=== PATIENT | female | born 1955 | race Caucasian/White ===

== ENCOUNTER 2017-10-21 17:46 | Emergency (ER) | payer OTHER ==
[~2017-10-21] VITALS: Wt 80.0 kg
[~2017-10-21 17:46] MED LIST: AMLO-147 PO; BACTDS PO; CEPH-443 PO; CLON-379 PO; OMEP20CA16 PO; SIMV10TA PO
[2017-10-21] MEDS ORDERED: KETOROLAC 30 MG INJ IM STA (18:20)
[2017-10-21] MEDS ORDERED: OXYCODONE/ACETAMINOPHEN (5/325) TAB PO ONE (18:30)
[2017-10-21] MEDS ORDERED: OXYC-279 PO (18:31)
[2017-10-21] MEDS ORDERED: IBUP-1542 PO (18:31)
[2017-10-21] MEDS ORDERED: SIMV20TA PO (18:37)
[2017-10-21] MEDS ORDERED: GLUCOSAMINE PO (18:40)
--- NOTE | 2017-10-21 19:08 | ERD ---
ER Documentation Chief Complaint Chief Complaint right foot pain and swelling from a fall but no deformity . HPI 62-year-old woman complains of redness and swelling to the dorsal aspect of the right foot 2 days. Patient states she had ankle inversion injury on the right a couple days ago. She denies direct trauma to the foot, no fevers or chills, no chest pain or shortness of breath. Patient normally uses a walker to help ambulate. Patient denies calf or leg swelling. ROS All systems reviewed and are negative except as per history of present illness. Medications Home Meds Active Scripts Cephalexin* (Keflex*) 500 Mg Capsule, 500 MG PO TID for 7 Days, CAP Prov:LINDA SMITH MD 10/21/17 Ibuprofen* (Ibuprofen*) 600 Mg Tablet, 600 MG PO Q8 for PAIN AND/OR INFLAMMATION , #30 TAB Prov:LINDA SMITH MD 10/21/17 Oxycodone HCl/Acetaminophen (Percocet 5-325 mg Tablet) 1 Each Tablet, 1 EACH PO TID for PAIN LEVEL 6-10, #12 TAB Prov:LINDA SMITH MD 10/21/17 Reported Medications [Glucosamine] No Conflict Check, 1 CAP PO NEEDED 10/21/17 Simvastatin* (Zocor*) 20 Mg Tablet, 20 MG PO QHS, #30 TAB 10/21/17 Omeprazole* (Omeprazole*) 20 Mg Capsule.dr, 20 MG PO DAILY, #30 CAP 04/14/16 Clonidine Hcl* (Clonidine Hcl*) 0.1 Mg Tab, 0.1 MG PO TID, TAB 04/14/16 Discontinued Reported Medications Simvastatin* (Zocor*) 10 Mg Tablet, 10 MG PO QHS, #30 TAB 12/27/15 Amlodipine Besylate* (Amlodipine Besylate*) 10 Mg Tablet, 10 MG PO DAILY, #30 TAB 12/27/15 Discontinued Scripts Cephalexin* (Keflex*) 500 Mg Capsule, 500 MG PO QID for 7 Days, CAP Prov:DOUGLAS BELTRAN 04/15/16 Sulfamethoxazole-Trimethoprim* (Bactrim* DS) 800-160 Mg Tab, 1 TAB PO BID for 5 Days, TAB Prov:DOUGLAS BELTRAN 04/15/16 Allergies Allergies: Coded Allergies: No Known Allergy (Unverified , 10/21/17) PMhx/Soc Obesity, dyslipidemia, hypertension, diabetes mellitus, History of Surgery: Yes (RT SHOULDER REPAIR, ) Anesthesia Reaction: No Hx Neurological Disorder: No Hx Respiratory Disorders: No Hx Cardiac Disorders: Yes (HTN) Hx Psychiatric Problems: No Hx Miscellaneous Medical Probl: No (Cholesterol, pre-DM) Hx Alcohol Use: No Hx Substance Use: No Hx Tobacco Use: No Smoking Status: Never smoker FmHx Family History: No diabetes Physical Exam Vitals Vital Signs Date Time Temp Pulse Resp B/P Pulse Ox O2 Delivery O2 Flow Rate FiO2 10/21/17 17:58 98.8 101 20 187/102 97 Physical Exam GENERAL: Well-developed, well-nourished, well-hydrated, in no apparent distress , looks nontoxic in appearance HEENT: Moist mucous membranes, pink conjunctiva, no cervical spine tenderness or step-off deformities, no goiter, no jaundice or icterus, extraocular movements intact without pain. No submandibular induration, and no pharyngeal erythema NEURO: Alert and oriented 3, cranial nerves II through XII intact bilaterally, pupils equal round reactive to light, no focal deficits or facial asymmetry, sensation intact distally Strength 5/5 in upper and lower extremities bilaterally CARDIAC: Regular rate and rhythm, no murmurs rubs or gallops LUNGS: Clear bilaterally no wheezing crackles or stridor ABDOMEN: Soft nontender, no guarding, no rigidity, no rebound, no psoas sign no obturator sign. Normoactive bowel sounds SKIN: Warm and dry to touch, exquisite tenderness superficially over the dorsal aspect of the right foot, mild skin erythema to the dorsal aspect of the right foot, no induration, no edema. EXTREMITIES: No clubbing cyanosis or edema, calves are bilaterally symmetrical, no Homans sign, no popliteal cord sign. Distal pulses equal and bilateral PSYCH: Normal affect without agitation or irritability Result Diagram: 10/21/17 19010/21/17 190 Results 24 hrs Laboratory Tests Test 10/21/17 19:02 10/21/17 19:03 White Blood Count 15.110^3/ul Red Blood Count 3.9910^6/ul Hemoglobin 11.4g/dl Hematocrit 36.4% Mean Corpuscular Volume 91.2fl Mean Corpuscular Hemoglobin 28.6pg Mean Corpuscular Hemoglobin Concent 31.3g/dl Red Cell Distribution Width 16.1% Platelet Count 55005^3/UL Mean Platelet Volume 10.3fl Neutrophils % 65.6% Lymphocytes % 17.0% Monocytes % 11.3% Eosinophils % 0.9% Basophils % 0.5% Nucleated Red Blood Cells % 0.6/100WBC Neutrophils # 9.910^3/ul Lymphocytes # 2.610^3/ul Monocytes # 1.710^3/ul Eosinophils # 0.110^3/ul Basophils # 0.110^3/ul Nucleated Red Blood Cells # 0.110^3/ul Sodium Level 136mmol/L Potassium Level 3.9mmol/L Chloride Level 102mmol/L Carbon Dioxide Level 20mmol/L Anion Gap 18 Blood Urea Nitrogen 19mg/dl Creatinine 1.33mg/dl Glucose Level 154mg/dl Calcium Level 9.5mg/dl Total Bilirubin 0.5mg/dl Direct Bilirubin 0.00mg/dl Indirect Bilirubin 0.5mg/dl Aspartate Amino Transf (AST/SGOT) 26IU/L Alanine Aminotransferase (ALT/SGPT) 50IU/L Alkaline Phosphatase 163IU/L C-Reactive Protein 19.7mg/dl Total Protein 6.9g/dl Albumin 3.5g/dl Globulin 3.40g/dl Albumin/Globulin Ratio 1.02 Current Medications Medications (Trade) Dose Ordered Sig/Lisbeth Route PRN Reason Start Time Stop Time Status Last Admin Dose Admin Ketorolac Tromethamine (Toradol) 30 mg ONCE STAT IM 10/21/17 18:20 10/21/17 18:24 DC 10/21/17 18:20 Oxycodone/ Acetaminophen (Percocet (5/ 325)) 1 tab ONCE ONCE PO 10/21/17 18:30 10/21/17 18:31 DC 10/21/17 19:24 Cephalexin (Keflex) 500 mg ONCE ONCE PO 10/21/17 20:30 10/21/17 20:31 UNV Procedures/MDM I administered Toradol 30 mg IM 1 and Percocet 1 tablet p.o. CBC revealed a leukocytosis of 15, electrolytes were unremarkable, liver function tests normal, CRP elevated X-ray right foot 3V Interpreted by me: Bones: No fracture Joints: Arthritic changes noted to the first second MTP Foreign body: None Patient's vital signs are normal and pain has improved, cellulitis is highly unlikely although I will give her a few days of antibiotics. She will also be managed with oral analgesics and I recommended she follow-up with her PMD. Differential diagnoses considered, included but not limited to acute coronary syndrome, pulmonary embolism, aortic dissection, abdominal aortic aneurysm, sepsis, stroke, meningitis, encephalitis, pneumonia, appendicitis, cholecystitis , bowel obstruction, pyelonephritis, nephrolithiasis, cystitis, as well as metabolic, hematologic, and electrolyte abnormalities. As well as abscess, cellulitis, fractures, and dislocations. Patient feels much better at this time, and vital signs are normal, symptoms have improved. I did give strict instructions to return to the ED if symptoms continue or worsen, patient will otherwise follow-up with primary care physician. Patient understood instructions and agreed to plan. Disclaimer: Inadvertent spelling and grammatical errors are likely due to EHR/ dictation software use and do not reflect on the overall quality of patient care. Also, please note that the electronic time recorded on this note does not necessarily reflect the actual time of the patient encounter. Departure Diagnosis: Primary Impression: Right ankle sprain Encounter type: initial encounter Involved ligament of ankle: unspecified ligament Qualified Code: S93.401A - Sprain of right ankle, unspecified ligament, initial encounter Additional Impressions: Gout of right foot Gout etiology: unspecified cause Chronicity: acute Qualified Code: M10.9 - Acute gout of right foot, unspecified cause Osteoarthritis of foot Osteoarthritis type: primary Laterality: right Qualified Code: M19.071 - Primary osteoarthritis of right foot Condition: Good Patient Instructions: Gouty Arthritis Referrals: SHARON LANGLEY DAVID MD Oct 21, 2017 19:08
[2017-10-21 19:42] LABS: WHITE BLOOD COUNT 15.1 10^3/ul (4.8-10.8)
[2017-10-21 19:43] LABS: ABNORMAL IP MESSAGE 1; BASOPHIL # 0.1 10^3/ul (0.0-0.1); BASOPHILS % 0.5 % (0.0-2.0); EOSINOPHILS # 0.1 10^3/ul (0.0-0.5); EOSINOPHILS % 0.9 % (0.0-7.0); HEMATOCRIT 36.4 % (37.0-47.0); HEMOGLOBIN 11.4 g/dl (12.0-16.0); LYMPHOCYTES # 2.6 10^3/ul (0.8-2.9); MEAN CORPUSCULAR HEMOGLOBIN 28.6 pg (29.0-33.0); MEAN CORPUSCULAR HGB CONC 31.3 g/dl (32.0-37.0); MEAN CORPUSCULAR VOLUME 91.2 fl (82.0-101.0); MEAN PLATELET VOLUME 10.3 fl (7.4-10.4); MONOCYTE # 1.7 10^3/ul (0.3-0.9); MONOCYTES % 11.3 % (0.0-11.0); NEUTROPHIL # 9.9 10^3/ul (1.6-7.5); NEUTROPHILS % 65.6 % (39.0-77.0); NUCLEATED RED BLOOD CELLS # 0.1 10^3/ul (0.0-0.0); NUCLEATED RED BLOOD CELLS% 0.6 /100WBC (0.0-0.0); PLATELET COUNT 363 10^3/UL (140-415); RED BLOOD COUNT 3.99 10^6/ul (4.20-5.40); RED CELL DISTRIBUTION WIDTH 16.1 % (11.5-14.5)
[2017-10-21 19:52] LABS: ALBUMIN 3.5 g/dl (3.3-4.9); ALBUMIN/GLOBULIN RATIO 1.02; BILIRUBIN,INDIRECT 0.5 mg/dl (0-1.1); BILIRUBIN,TOTAL 0.5 mg/dl (0.2-1.3); CALCIUM 9.5 mg/dl (8.4-10.2); CREATININE 1.33 mg/dl (0.44-1.00); POTASSIUM 3.9 mmol/L (3.5-5.1); TOTAL PROTEIN 6.9 g/dl (6.1-8.1)
[2017-10-21 19:52] LABS: POSITIVE DIFF @See below
[2017-10-21 20:11] LABS: C-REACTIVE PROTEIN 19.7 mg/dl (0.0-0.9)
--- NOTE | 2017-10-21 20:19 | RADRPT ---
PROCEDURE: XR Foot. CLINICAL INDICATION: 62 years of age, female. Gout. TECHNIQUE: Three views of the right foot. COMPARISON: None available. FINDINGS: There is soft tissue swelling over the forefoot. Negative for hyperdense soft tissue masses to indic ate tophi. Negative for punched out erosions. Osteoarthritis of the first MTP joint with joint space narrowing and osteophytes. There is arthritis of the sesamoid bones of the great toe. Remaining joint spaces are preserved. There is mild arthrit is of the tibiotalar joint with anterior osteophytes. Bone spur at the base of the calcaneus. Multipartite os peroneum at the lateral base of cuboid. Mult ipartite accessory ossicle for the navicular. Additional comment: None. IMPRESSION: 1. Negative for radiographic evidence of chronic tophaceous gout. Acute gout may not be seen on x-ra y. 2. Osteoarthritis of the first MTP joint and adjacent sesamoids. RPTAT: HCTS Physician Marzena Date Time Electronically viewed and signed by Physician Marzena on 10/21/2017 20:18 /
[2017-10-21] MEDS ORDERED: CEPH-443 PO (20:21)
[2017-10-21] MEDS ORDERED: CEPHALEXIN 500 MG CAP PO ONE (20:30)
[2017-10-21 20:53] VITALS: BP 118/56; PULSE 95; RESP 16; TEMP 98.1
== END 2017-10-21 20:59 | disposition home or self-care (01) ==
LOC: E/R 17:46
DX: S93.401A Sprain of unspecified ligament of right ankle, initial encounter (principal); M10.9 Gout, unspecified; M19.071 Primary osteoarthritis, right ankle and foot; E11.9 Type 2 diabetes mellitus without complications; I10 Essential (primary) hypertension; E03.9 Hypothyroidism, unspecified; X50.9XXA Other and unspecified overexertion or strenuous movements or postures, initial encounter; Y92.9 Unspecified place or not applicable
CPT/HCPCS: 36415; 73630; 80053; 85025; 85651; 86140; 96372; J1885; Z7502; Z7610

== ENCOUNTER 2017-10-23 07:04 | Inpatient (IN) | payer OTHER ==
[~2017-10-23] VITALS: Ht 152.4 cm; Wt 95.6 kg
[2017-10-23] VITALS (17 sets, daily range): BP systolic 127–181; BP diastolic 55–83; PULSE 86–98; RESP 16–23
[~2017-10-23 07:04] MED LIST changes: -AMLO-147 PO; -BACTDS PO; +GLUCOSAMINE PO; +IBUP-1542 PO; +OXYC-279 PO; -SIMV10TA PO; +SIMV20TA PO; +SUCCINYLCHOLINE CHLORIDE 100 MG/5 ML SYG IV ONE
[2017-10-23] MEDS ORDERED: NACL 0.9% 3 ML SYG IV SCH ×2 (10:00→11:00)
--- NOTE | 2017-10-23 10:58 | HP ---
Date/Time of Note Date/Time of Note DATE: 10/23/17 TIME: 10:58 Assessment/Plan VTE Prophylaxis VTE Prophylaxis Intervention: SCD's Lines/Catheters IV [facility]from [facility] Saline Lock Assessment/Plan Chief Complaint/Hosp Course 1. Symptomatic cholelithiasis. Possible underlying cholecystitis. The patient will be kept n.p.o. The patient will be provided with adequate pain control. General surgery consult will be obtained. Will start empiric antibiotics. 2. Hematochezia. The patient has history of gastric ulcers. The patient will be maintained on proton pump inhibitors. The patient's H&H remains stable. Gastroenterology consult will be obtained. 3. Acute kidney injury. Probably has some underlying chronic kidney disease as evidenced by atrophy of the right kidney. Avoid nephrotoxic medications. Continue IV hydration. Obtain nephrology consult. 4. Essential hypertension. The patient's antihypertensives will be resumed. 5. Dyslipidemia. The patient's statins will be resumed. A fasting lipid panel will be obtained. 6. Prediabetes. Hemoglobin A1c will be obtained. 7. Obesity. BMI of 41.2 kg/m. Weight reduction will be advised. Plan: The patient will be admitted to inpatient medical surgical floor. The patient will be n.p.o.. The patient will be started on DVT prophylaxis. The patient will remain a full code. Activities will be as tolerated. The rest of the patient's management will be based on the clinical course, inputs from consultants, and the results of diagnostic studies. Based on the patient's clinical presentation, she most probably requires at least 1 midnight's stay for further management and evaluation of her clinical presentation. The patient was seen in collaboration with Dr. Lomax. Problems: Assessment/Plan This is the case of a 62-year-old female with past medical history of essential hypertension, prediabetes, and dyslipidemia who was initially evaluated at [facility] for abdominal pain as well as hematochezia who was found to have evidence of symptomatic cholelithiasis and acute kidney injury who is being admitted to [facility] for further evaluation and management for any underlying cholecystitis and further evaluation of her underlying KENNY. HPI/ROS Admit Date/Time Admit Date/Time Oct 23, 2017 at 08:36 Hx of Present Illness Reason for admission: Transferred from [facility] for further management of symptomatic cholelithiasis and bright right blood per rectum. Conusltants 1. Melo Curry MD, General Surgery. 2. Rosa Hung MD, Gastroenterology. 3. Edward Bowman DO, Nephrology. This is a 62-year-old female with past medical history of essential hypertension, dyslipidemia, and osteoarthritis who went to an outside facility with a chief complaint of abdominal pain, nausea, and bright red blood per rectum that has been going on for a 3 day period. The patient was seen at [facility] emergency room on October 21 for a right ankle sprain. At that time, the patient had abdominal pain and bleeding per rectum. However, the patient's H&H remained stable and the patient was discharged home for outpatient follow-up. The patient's a BUN and creatinine on 10/21/2017 was 19 and 1.33 respectively. The patient's symptoms were not getting better, hence she went to [facility]. At [facility], the patient underwent a gallbladder ultrasound that showed significantly distended gallbladder with suggestion of stones or sludge layering in its dependent portion within gallbladder wall thickening or pericholecystic fluid. The patient underwent a CT of the abdomen and pelvis that showed significantly distended gallbladder with stones or sludge layering in the dependent portion. The patient had leukocytosis with WBC of 15.9. The patient was noticed to be in acute kidney injury with a BUN and creatinine of 30 and 3.25 respectively. The patient was treated with IV Zosyn at [facility] and the patient was transferred to [facility] for further management because of insurance reasons. ROS Constitutional: poor po Eyes: no complaints ENT: no complaints Respiratory: no complaints Cardiovascular: no complaints Gastrointestinal: blood, nausea, pain Genitourinary: no complaints Musculoskeletal: bone/joint pain (Right ankle) Skin: no complaints Neurologic: no complaints Endocrine: no complaints Lymphatic: no complaints Psychological: no complaints Immunologic: no complaints PMH/Family/Social Past Medical History Medical History: high cholesterol, hypertension, other (Gastric ulcers, prediabetes) Past Surgical History Past Surgical Hx: other (, righ arm surgery) Social History The patient lives at home. Alcohol Use: none Smoking Status: Never smoker Drug Use: none Exam/Review of Systems Vital Signs Vitals Vital Signs Date Time Temp Pulse Resp B/P Pulse Ox O2 Delivery O2 Flow Rate FiO2 10/23/17 08:20 98.6 91 16 127/57 95 Exam Exam General: Morbidly obese 61 year-old female lying in bed in no apparent distress. HEENT: Normocephalic, atraumatic. Eyes: Anicteric sclerae, conjunctivae clear. ENT: Nasal septum midline, oral mucosa moist. Neck: Short and obese. Respiratory: Bilaterally clear breath sounds. No use of accessory muscles of respiration. No adventitious breath sounds. Cardiovascular: S1, S2 heard. Regular rate and rhythm. Abdomen: Soft and nondistended. Bowel sounds positive in all 4 quadrants. RUQ tenderness. Genitourinary: Deferred. Extremities: No cyanosis, no clubbing. Peripheral pulses palpable. Right foot tenderness on palpation. Neurologic: Cranial nerves II through XII grossly intact. The patient is awake, alert, and oriented. Skin: Normal skin turgor. No skin rashes. Medications Medications Current Medications Sodium Chloride (NS) 1,000 ml @ 100 mls/hr Q10H IV ; Start 10/23/17 at 11:00; Status UNV Ondansetron HCl (Zofran Inj) 4 mg Q6H PRN IV NAUSEA AND/OR VOMITING; Start at 11:00; Status UNV Acetaminophen (Tylenol Tab) 650 mg Q6H PRN PO PAIN LEVEL 1-3 OR FEVER; Start 10/23/17 at 11:00; Status UNV Acetaminophen/ Hydrocodone Bitart ([place] (5/325)) 1 tab Q6H PRN PO MODERATE PAIN LEVEL 4-6; Start 10/23/17 at 11:00; Status UNV Pantoprazole (Protonix Iv) 40 mg DAILY@06 IV ; Start 10/24/17 at 06:00; Status UNV Procedures Procedures Gallbladder Ultrasound (from [facility]) Hepatic steatosis with mild hepatomegaly. Cholelithiasis with distended gallbladder, may represent hydropic gallbladder. Normal CBD. CT Abdomen and Pelvis ([facility]) Significantly distended gallbladder with suggestion of stones or sludge layering in its dependent portion. No gallbladder wall thickening or pericholecystic fluid. Severe atrophy of the right kidney. Left kidney is unremarkable without hydronephrosis or renal calculi. CBC from [facility]: WBC 15.9, hemoglobin 10.5, hematocrit 30.0, platelet count 336. CMP from [facility]: Sodium 134, potassium 4.5, chloride 100, carbon dioxide 20, anion gap 14, BUN 30, creatinine 3.25, EGFR 14, glucose 163, calcium 8.7, alk phos 170, AST 23, ALT 28, total bili 1.1, direct bili 0.4, lipase 11. EPRICO TREJO NP Oct 23, 2017 10:58
[2017-10-23] MEDS ORDERED: HYDROCODONE/APAP (5/325) TAB PO PRN (11:00)
[2017-10-23] MEDS ORDERED: ACETAMINOPHEN 325 MG TAB PO PRN (11:00)
[2017-10-23] MEDS ORDERED: ONDANSETRON 4 MG INJ IV PRN ×4 (11:00→16:30)
[2017-10-23] MEDS: SOD CHLORIDE 0.9% 1,000 ML IV SCH ×2 (12:00→20:46)
--- NOTE | 2017-10-23 12:02 | CONS ---
Date/Time of Note Date/Time of Note DATE: 10/23/17 TIME: 12:00 Assessment/Plan Assessment/Plan Additional Assessment/Plan Acute cholecystitis Laparoscopic cholecystectomy is recommended. I have discussed the procedure, outcomes, indications, alternatives and risks in detail with the patient and family will have a reasonable understanding of the nature of her illness and agreed to the proposed plan of therapy as outlined. Consultation Date/Type/Reason Admit Date/Time Oct 23, 2017 at 08:36 Date of Consultation: Oct 23, 2017 Reason for Consultation Acute cholecystitis Hx of Present Illness The patient is a morbidly obese 62-year-old female who was diagnosed at all of the hospital last night with acute cholecystitis. She is transferred here for continuance of care. She has had no fevers or chills. Her LFTs are normal Constitutional: no complaints Eyes: no complaints ENT: no complaints Respiratory: no complaints Cardiovascular: no complaints Gastrointestinal: other (As in the HPI) Genitourinary: no complaints Musculoskeletal: no complaints Neurologic: no complaints Endocrine: no complaints Lymphatic: no complaints Psychological: no complaints Immunologic: no complaints Past Medical History Medical History: high cholesterol, hypertension, other (Gastric ulcers) Past Surgical History Past Surgical Hx: other (, righ arm surgery) Family History Significant Family History: no pertinent family hx Social History Alcohol Use: none Smoking Status: Never smoker Exam/Review of Systems Vital Signs Vitals Vital Signs Date Time Temp Pulse Resp B/P Pulse Ox O2 Delivery O2 Flow Rate FiO2 10/23/17 08:20 98.6 91 16 127/57 95 Exam Constitutional: alert, oriented Psych: no complaints Head: normocephalic Eyes: nl conjunctiva ENMT: nl external ears & nose Neck: supple Respiratory: clear to auscultation Cardiovascular: regular rate and rhythm Gastrointestinal: tender (Tender to deep palpation right upper quadrant with positive Middleton sign) Extremities: normal pulses Neurological: RESEARCH ARCHAEOLOGIST II-XII intact, other (Speaks only Sinhala) Skin: nl turgor Lymph: nl lymph nodes Medications Medications Current Medications Sodium Chloride (NS) 1,000 ml @ 100 mls/hr Q10H IV ; Start 10/23/17 at 11:00 Ondansetron HCl (Zofran Inj) 4 mg Q6H PRN IV NAUSEA AND/OR VOMITING; Start at 11:00 Acetaminophen (Tylenol Tab) 650 mg Q6H PRN PO PAIN LEVEL 1-3 OR FEVER; Start 10/23/17 at 11:00 Acetaminophen/ Hydrocodone Bitart ([place] (5/325)) 1 tab Q6H PRN PO MODERATE PAIN LEVEL 4-6; Start 10/23/17 at 11:00 Pantoprazole (Protonix Iv) 40 mg DAILY@06 IV ; Start 10/24/17 at 06:00 TIMA PRICE MD Oct 23, 2017 12:02
[2017-10-23 12:20] LABS: BASOPHILS % 0.3 % (0.0-2.0); EOSINOPHILS # 0.2 10^3/ul (0.0-0.5); EOSINOPHILS % 1.5 % (0.0-7.0); HEMOGLOBIN 9.5 g/dl (12.0-16.0); LYMPHOCYTES # 1.8 10^3/ul (0.8-2.9); LYMPHOCYTES % 12.3 % (15.0-51.0); MEAN CORPUSCULAR HEMOGLOBIN 28.6 pg (29.0-33.0); MEAN CORPUSCULAR HGB CONC 31.7 g/dl (32.0-37.0); MEAN CORPUSCULAR VOLUME 90.4 fl (82.0-101.0); MONOCYTE # 1.4 10^3/ul (0.3-0.9); MONOCYTES % 9.4 % (0.0-11.0); NEUTROPHILS % 73.9 % (39.0-77.0); NUCLEATED RED BLOOD CELLS% 0.2 /100WBC (0.0-0.0); PLATELET COUNT 338 10^3/UL (140-415); RED BLOOD COUNT 3.32 10^6/ul (4.20-5.40); WHITE BLOOD COUNT 14.9 10^3/ul (4.8-10.8)
[2017-10-23 12:39] LABS: ALBUMIN 2.8 g/dl (3.3-4.9); ALBUMIN/GLOBULIN RATIO 0.87; BILIRUBIN,INDIRECT 0.5 mg/dl (0-1.1); BILIRUBIN,TOTAL 0.5 mg/dl (0.2-1.3); CALCIUM 8.6 mg/dl (8.4-10.2); CHOL/HDL RATIO 5.7 RATIO; CREATININE 2.67 mg/dl (0.44-1.00); POTASSIUM 4.1 mmol/L (3.5-5.1)
[2017-10-23 13:09] LABS: THYROID STIMULATING HORMONE 3.54 MIU/L (0.465-4.680)
[2017-10-23] MEDS ORDERED: PIPER-TAZO 3.375 GM IV (PMX) 50 ML IVPB SCH (14:00)
[2017-10-23] MEDS ORDERED: INSULIN ASPART [NOVOLOG] 3 ML PEN SC ONE (14:30)
[2017-10-23] MEDS ORDERED: OXYCODONE/ACETAMINOPHEN (5/325) TAB PO PRN ×4 (14:30→16:00)
[2017-10-23] MEDS ORDERED: FENTAnyl 50 MCG/ML VIAL IV PRN ×6 (14:30→16:30)
[2017-10-23] MEDS ORDERED: EPHEDrine SULFATE 50 MG/5 ML SYG IV PRN (14:30)
[2017-10-23] MEDS ORDERED: METOCLOPRAMIDE 10 MG INJ IV PRN ×2 (14:30→16:30)
[2017-10-23] MEDS ORDERED: hydrALAzine 20 MG INJ IV PRN ×2 (14:30→16:30)
[2017-10-23] MEDS ORDERED: KETOROLAC 30 MG INJ IV PRN (14:30)
[2017-10-23] MEDS ORDERED: MEPERIDINE 25 MG INJ IV PRN (14:30)
[2017-10-23] MEDS ORDERED: ROCURONIUM 50 MG INJ ONE (14:30)
[2017-10-23] MEDS ORDERED: MIDAZOLAM 1 MG/ML 2 ML INJ ONE (14:30)
[2017-10-23] MEDS ORDERED: LIDOCAINE 2% (SDV) 5 ML INJ ONE (14:30)
[2017-10-23] MEDS ORDERED: PROPOFOL 20 ML ONE (14:30)
[2017-10-23] MEDS ORDERED: FENTAnyl 50 MCG/ML VIAL ONE (14:30)
[2017-10-23] MEDS ORDERED: ALBUTEROL 0.083% (NEB) 2.5 MG/3 ML AMP HHN PRN (14:30)
[2017-10-23] MEDS ORDERED: DIPHENHYDRAMINE 50 MG INJ IV PRN (14:30)
[2017-10-23] MEDS ORDERED: DEXAMETHASONE 4 MG/ML 1 ML INJ ONE (14:58)
[2017-10-23] MEDS ORDERED: PHENYLephrine (100 MCG/ML) 5ML SYG ONE (15:01)
[2017-10-23] MEDS ORDERED: BUPIVACAINE 0.25% (MPF) 30 ML INJ ONE (15:08)
[2017-10-23] MEDS ORDERED: METOCLOPRAMIDE 10 MG INJ ONE (15:11)
[2017-10-23] MEDS ORDERED: ROPIVACAINE 0.5 % 30 ML VIAL ONE (15:28)
[2017-10-23] MEDS ORDERED: NEOSTIGMINE 3 MG/3 ML SYRINGE ONE (15:29)
[2017-10-23] MEDS ORDERED: GLYCOPYRROLATE 1 MG INJ ONE (15:29)
[2017-10-23] MEDS ORDERED: GLUCOSE GEL 15 GRAM TUBE PO PRN ×4 (15:30→21:00)
[2017-10-23] MEDS ORDERED: GLUCOSE GEL 15 GRAM TUBE BUCCAL PRN ×2 (15:30→21:00)
[2017-10-23] MEDS ORDERED: DEXTROSE 50% 50 ML SYRINGE IV PRN ×4 (15:30→21:00)
[2017-10-23] MEDS ORDERED: GLUCAGON 1 MG INJ IM PRN ×2 (15:30→21:00)
[2017-10-23] MEDS ORDERED: GLYCOPYRROLATE 0.4 MG INJ ONE (15:31)
[2017-10-23] MEDS ORDERED: morphine 2 MG INJ IV PRN (16:00)
--- NOTE | 2017-10-23 16:00 | OPR ---
Date/Time of Note Date/Time of Note DATE: 10/23/17 TIME: 15:53 Operative Report Procedure Date: Oct 23, 2017 Preoperative Diagnosis Acute cholecystitis Postoperative Diagnosis 1. Acute cholecystitis 2. Extensive adhesions Operation/Procedure Performed 1. Laparoscopic cholecystectomy 2. Extensive laparoscopic lysis of adhesions 3. Placement of drain Surgeon Tima Price MD Business Performance Analyst None Anesthesia Type: general Anesthesiologist: SHERIN VERMA MD Estimated Blood Loss: 0 - 10 ml's Transfusion none Specimen Gallbladder Grafts/Implants none Tubes/Drains #19 Round Mo drain Complications none Pt Condition Post Procedure: stable Disposition: PACU Indications Symptomatic cholecystitis Procedure Description After satisfactory general endotracheal anesthesia was achieved, the abdomen was prepped and draped in usual fashion. The abdomen was insufflated with carbon dioxide through a supraumbilical Veress needle to 15 mmHg pressure. The Veress needle was removed and the incision extended to 5 mm through which a 5 mm trocar was placed. A 5 mm 0 lens was placed. Laparoscopy showed extensive adhesions throughout the entire upper abdomen impeding even the visualization of the liver. Under direct visualization a 5 mm right upper quadrant trocar was placed. The camera was placed into this trocar. Next the adhesions were sequentially taken down with sharp and electrocautery dissection until the liver was visualized. The dissection continued to the right abdomen finally allowing the markedly distended gallbladder to be visualized. The gallbladder was chronically inflamed and markedly distended. Lysis of adhesions continued until the entire surface and undersurface of the right lobe of the liver were identified and visualized clearly. Under direct visualization an 11 mm epigastric trocar was placed as well as a second 5 mm right lateral abdominal trocar. The dome of the gallbladder was grasped and retracted superiorly. The distal gallbladder was grasped and retracted infero-laterally. The hepatoduodenal ligament was carefully dissected between the gallbladder and the well-visualized sharri hepatis. The cystic duct was then triply hemoclipped and divided high at the junction of the gallbladder and the cystic duct. The cystic artery was identified immediately posteriorly and divided over a clip. The gallbladder was then dissected from the undersurface of the liver from below using electrocautery dissection and was placed intact into an Endo Catch removed via the epigastric route. Hemostasis of the liver bed was excellent. The abdomen was irrigated with a liter of saline until clear. Because of the marked amount of dissection and inflammation, it was elected to place a drain. A #19 round Mo drain was placed draining the right subhepatic space and gallbladder fossa and exiting through the right lateralmost trocar site, where it was secured to the skin with a single suture of 3-0 nylon. The fascia of the epigastrium was then closed with a Neoclosure device. The abdomen was then desufflated and all trochars were removed. The skin punctures were infiltrated with 30 cc of 0.25% plain Marcaine and closed with reid. Sponge and needle counts were reported as correct 2. TIMA PRICE MD Oct 23, 2017 16:00
[2017-10-23] MEDS ORDERED: SUGAMMADEX SODIUM 200 MG/2 ML VIAL IV ONE (16:02)
[2017-10-23] MEDS ORDERED: HYDROmorphONE (0.2 MG/ML) 10ML SYG IV PRN ×3 (16:30)
[2017-10-23] MEDS ORDERED: hydrALAzine 20 MG INJ ONE (16:31)
[2017-10-23] MEDS ORDERED: HYDROmorphONE (0.2 MG/ML) 10ML SYG IV ONE (16:56)
[2017-10-23] MEDS ORDERED: LABETALOL HCL 20MG INJ IV PRN (17:00)
--- NOTE | 2017-10-23 18:56 | CONS ---
DATE OF ADMISSION: 10/23/2017 DATE OF CONSULTATION: TYPE OF CONSULTATION: Nephrology. REASON FOR CONSULTATION: KENNY. PHYSICIAN REQUESTING CONSULT: Dr. Morrissey. HISTORY OF PRESENT ILLNESS: This is a 62-year-old female with a past medical history of hypertensio n, history of dyslipidemia, history of gastric ulcers, who presented to an outside hospital with acu te cholecystitis. The patient was transferred to [facility] for continuation of c are. Upon arrival to [facility], the patient was seen by general surgeon, Dr. Iain da silva and is for possible laparoscopic cholecystectomy. The patient was noted to be in pain and has b een receiving pain medications. In terms of the patient's renal history, the patient has no prior history of kidney disease. In ter ms of the patient's renal history, the patient's creatinine in 04/2007 was 1.3 mg/dL. The patient h erself denies knowing of any prior history of chronic kidney disease. The patient denies any frothy urine, any hemoptysis, hemetemesis, hematochezia. PAST MEDICAL HISTORY: As stated above, history of obesity, history of hypertension, history of dysl ipidemia. PAST SURGICAL HISTORY: Status post , right arm surgery. FAMILY HISTORY: Noncontributory. SOCIAL HISTORY: Does not drink, smoke or do drugs. MEDICATIONS: The patient's medication reviewed. REVIEW OF SYSTEMS: A 14-point review of systems was conducted. Pertinent positives stated in HPI, otherwise negative. PHYSICAL EXAMINATION: VITAL SIGNS: Blood pressure is 127/57, respirations 16, pulse 91, temperature 98.6. HEENT: Head is normocephalic. NECK: Supple. HEART: Regular rate. LUNGS: Show diminished breath sounds at base. ABDOMEN: Soft, nontender to palpation without rebound or guarding. EXTREMITIES: Negative for clubbing, cyanosis, no edema. DERMATOLOGIC: No rashes. MUSCULOSKELETAL: No joint effusions. NEUROLOGIC: No change in exam. MEDICATIONS: The patient's medications have been reviewed. LABORATORY DATA: Shows sodium 133, potassium 4.1, BUN 31, creatinine 2.67, hemoglobin A1c 7.4. Whi te count 14.9, hemoglobin 9.5, platelet count 16.0. IMAGING STUDIES: Reviewed. ASSESSMENT AND PLAN: This is a 62-year-old female who presents with: 1. Nonoliguric acute kidney injury on top of chronic kidney disease stage III with a baseline creat inine around 1.3 to 1.5 mg/dL. Etiology of acute kidney injury is secondary to hemodynamics, possib le sepsis. Plan at this point is to do a full evaluation. Will check UA with microanalysis. Check urine electrolytes, check a renal ultrasound to rule out obstruction, although suspicion is low. T here is low suspicion for acute glomerulonephritis vasculitis given the patient's clinical presentat ion. Agree with IV fluids. Would otherwise, continue current treatment plan, supportive care, honey lly dose all meds. Continue antibiotic therapy. 2. Hyponatremia, etiology secondary to acute kidney injury causing decreased free water urinary exc retion. Will continue to monitor sodium levels, limit free water intake. 3. Anemia. Monitor hemoglobin and hematocrit levels. 4. Mineral bone disorder. Monitor calcium and phosphorus levels. 5. Acute cholecystitis. Continue current antibiotic therapy. The patient has been seen by general surgery pending laparoscopic cholecystectomy. 6. History of hypertension. Continue to monitor. 7. Dyslipidemia, continue statin therapy. Thank you, Dr. Morrissey for this interesting consult. It will be a pleasure to follow the patient wi th you throughout the hospital course. Dictated By: OMAIRA BLANCO DO NR/NTS Conf#: [id number] DID#: [id number] CC: ELDER TRAN MD;*EndCC*
[2017-10-23] MEDS: PIPER-TAZO 2.25 GM (PMX) 50 ML IVPB SCH (20:42)
[2017-10-23] MEDS: ATORVASTATIN 10 MG TAB PO SCH (20:46)
[2017-10-23] MEDS: INSULIN ASPART [NOVOLOG] 3 ML PEN SC SCH (21:16)
[2017-10-24] MEDS: PIPER-TAZO 2.25 GM (PMX) 50 ML IVPB SCH ×4 (01:17→22:24)
[2017-10-24] MEDS: ACCU-CHEK XX SCH (01:25)
[2017-10-24 03:11] VITALS: BP 119/58; RESP 18
[2017-10-24 03:13] LABS: ADD UMIC YES; UR ASCORBIC ACID NEGATIVE (NEGATIVE); UR BACTERIA FEW /HPF (NONE SEEN); UR BILIRUBIN (Dip) NEGATIVE (NEGATIVE); UR BLOOD (Dip) 1+ mg/dL (NEGATIVE); UR CLARITY SLIGHTLY CLOUDY (CLEAR); UR COLOR YELLOW (YELLOW); UR GLUCOSE (Dip) 1+ mg/dL (NEGATIVE); UR KETONES (Dip) TRACE mg/dL (NEGATIVE); UR LEUKOCYTE ESTERASE (Dip) 2+ Leu/ul (NEGATIVE); UR NITRITE (Dip) NEGATIVE (NEGATIVE); UR RBC 1 /HPF (0-5); UR SPECIFIC GRAVITY (Dip) 1.016 (1.003-1.030); UR SQUAMOUS EPITHELIAL CELL FEW /HPF (FEW); UR TOTAL PROTEIN (Dip) 1+ mg/dl (NEGATIVE); UR UROBILINOGEN (Dip) 1+ mg/dL (NEGATIVE)
[2017-10-24 05:49] LABS: HEMATOCRIT 29.3 % (37.0-47.0); HEMOGLOBIN 8.9 g/dl (12.0-16.0); MEAN CORPUSCULAR HEMOGLOBIN 28.2 pg (29.0-33.0); MEAN CORPUSCULAR HGB CONC 30.4 g/dl (32.0-37.0); MEAN CORPUSCULAR VOLUME 92.7 fl (82.0-101.0); MEAN PLATELET VOLUME 10.4 fl (7.4-10.4); NUCLEATED RED BLOOD CELLS% 0.1 /100WBC (0.0-0.0); PLATELET COUNT 338 10^3/UL (140-415); RED BLOOD COUNT 3.16 10^6/ul (4.20-5.40); RED CELL DISTRIBUTION WIDTH 15.9 % (11.5-14.5); WHITE BLOOD COUNT 14.4 10^3/ul (4.8-10.8)
[2017-10-24 05:56] LABS: POSITIVE DIFF @See below
[2017-10-24 06:17] LABS: MAGNESIUM 1.7 mg/dl (1.7-2.5); PHOSPHORUS 3.4 mg/dl (2.5-4.9); POTASSIUM 4.6 mmol/L (3.5-5.1)
[2017-10-24 06:44] LABS: ALBUMIN/GLOBULIN RATIO 0.92
[2017-10-24] MEDS: PANTOPRAZOLE 40 MG INJ IV SCH (06:50)
[2017-10-24 07:01] LABS: ALBUMIN 2.4 g/dl (3.3-4.9); BILIRUBIN,INDIRECT 0.1 mg/dl (0-1.1); BILIRUBIN,TOTAL 0.1 mg/dl (0.2-1.3); CREATININE 1.95 mg/dl (0.44-1.00); POTASSIUM 4.9 mmol/L (3.5-5.1)
[2017-10-24 07:42] LABS: ANISOCYTOSIS 1+ (0-0); GIANT THROMBO% (M) 2 % (0-0); MICROCYTOSIS 1+ (0-0); MONOCYTES % (M) 1 % (0-11); PLATELET ESTIMATE NORMAL; POIKILOCYTOSIS 1+ (0-0); POLYCHROMASIA 1+ (0-0)
[2017-10-24 07:57] VITALS: BP 131/63; RESP 19
--- NOTE | 2017-10-24 08:01 | RADRPT ---
PROCEDURE: Renal US. CLINICAL INDICATION: Acute kidney injury TECHNIQUE: Multiple sonographic images of the kidneys were obtained. The images were reviewed on a PACS workstation. COMPARISON: No prior studies are available for comparison. FINDINGS: The kidneys are well visualized. The right kidney measures 11.7 cm. The left kidney measures 10.4 cm . There are no focal areas of abnormal echogenicity. There is no evidence for obstructive uropathy. The bladder is grossly unremarkable. IMPRESSION: 1. Study somewhat limited by the patient's body habitus. No definite abnormalities are identified. RPTAT:AAJJ Physician Yazmin Date Time Electronically viewed and signed by Physician Yazmin on 10/24/2017 08:01 DEREK/
[2017-10-24] MEDS: SOD CHLORIDE 0.9% 1,000 ML IV SCH ×3 (08:38→20:49)
[2017-10-24] MEDS: INSULIN ASPART [NOVOLOG] 3 ML PEN SC SCH ×4 (08:39→20:41)
--- NOTE | 2017-10-24 11:27 | PN ---
Date/Time of Note Date/Time of Note DATE: 10/24/17 TIME: 11:26 Assessment/Plan Lines/Catheters IV Catheter Type (from [facility]): Peripheral IV Assessment/Plan Chief Complaint/Hosp Course The patient is a morbidly obese 62-year-old female who was diagnosed at all of the hospital last night with acute cholecystitis. She is transferred here for continuance of care. She has had no fevers or chills. Her LFTs are normal Problems: Assessment/Plan Leukocytosis unchanged Abdominal examination is benign GILBERT drainage mostly serous Plan: Continue medical management. Possible discharge tomorrow. Subjective 24 Hr Interval Summary Postoperative day #1 Symptomatically improved Exam/Review of Systems Vital Signs Vitals Vital Signs Date Time Temp Pulse Resp B/P Pulse Ox O2 Delivery O2 Flow Rate FiO2 10/24/17 07:57 97.7 87 19 131/63 94 10/23/17 18:24 Room Air 10/23/17 16:46 3.0 Intake and Output 10/23/17 10/23/17 10/24/17 14:59 22:59 06:59 Intake Total 1610 ml 1070 ml Output Total 55 ml 225 ml Balance 1555 ml 845 ml Results Result Diagram: 10/24/17 0443 10/24/17 0443 TIMA PRICE MD Oct 24, 2017 11:27
[2017-10-24] MEDS ORDERED: GLIMEPIRIDE 2 MG TAB PO ONE (12:30)
--- NOTE | 2017-10-24 12:32 | PN ---
Date/Time of Note Date/Time of Note DATE: 10/24/17 TIME: 12:28 Assessment/Plan VTE Prophylaxis VTE Prophylaxis Intervention: heparin Lines/Catheters IV [facility] Peripheral IV Assessment/Plan Problems: (1) S/P laparoscopic cholecystectomy Onset Date: ~ 10/23/2017 Status: Acute Comment: She is recuperating from the surgical procedure quite nicely. I am in agreement with the surgeon and she should be able to be discharged tomorrow. One significant issue is that she does not have a primary care physician and generally gets her medications from a pharmacy [facility] without medical direction. She had previously been under the care of Dr. Kong Reid who she is not seeing in the recent past. (2) Diabetes mellitus type 2 in obese Status: Chronic Comment: Initiate treatment with oral agents as injectable therapy is not likely to be followed by this patient. Please note she does have complications of chronic kidney disease but her renal function is stable looking at 5 years of laboratory information in the hospital computer. This would be an appropriate place to consider using an BERNIE inhibitor, which I have written for (3) Morbid obesity due to excess calories Status: Chronic Comment: Re-counseled extensively (4) Hypertension Status: Acute Comment: Low-dose BERNIE inhibitor and follow renal function Qualifiers: Hypertension type: essential hypertension Qualified Code: I10 - Essential hypertension (5) Abnormal LFTs (liver function tests) Status: Chronic Comment: Check hepatitis serologies (6) Chronic kidney disease, stage III (moderate) Status: Chronic Comment: Noted. Given the waxing waning state of her serum creatinine she is stable versus 4 years ago (7) Acute kidney injury Status: Resolved Comment: Resolved and back to baseline (8) Bladder infection, acute Status: Acute Comment: Unfortunately urine cultures were not obtained by the emergency room and admitted her and placed her on antibiotics. She will go out on antibiotics she would have been given for the gallbladder surgery regardless; recheck UA to make sure this is clearing up. This will also let us see her degree of proteinuria when she has improved Qualifiers: Hematuria presence: without hematuria Qualified Code: N30.00 - Acute cystitis without hematuria (9) Hyperlipidemia associated with type 2 diabetes mellitus Status: Chronic Comment: Continue statin therapy Subjective 24 Hr Interval Summary Free Text/Dictation Patient lying in bed. She reports she feels better. Denies major complaints Constitutional: no complaints (No fevers chills or sweats) Respiratory: no complaints Cardiovascular: no complaints Gastrointestinal: pain (Patient reports pain at the surgical incision sites for the laparoscopy but her overall sense of pain and well-being is much improved) Genitourinary: no complaints Exam/Review of Systems Vital Signs Vitals Vital Signs Date Time Temp Pulse Resp B/P Pulse Ox O2 Delivery O2 Flow Rate FiO2 10/24/17 07:57 97.7 87 19 131/63 94 10/23/17 18:24 Room Air 10/23/17 16:46 3.0 Intake and Output 10/23/17 10/23/17 10/24/17 15:00 23:00 07:00 Intake Total 1610 ml 1070 ml Output Total 55 ml 225 ml Balance 1555 ml 845 ml Exam Morbidly obese female lying in bed Constitutional: alert, oriented Neck: non-tender, supple Respiratory: clear to auscultation, normal air movement Cardiovascular: nl pulses, regular rate and rhythm Gastrointestinal: bowel sounds (Active), nl liver, spleen, non-tender, soft Results Result Diagram: 10/24/17 0443 10/24/17 0443 Results 24 hrs Laboratory Tests Test 10/23/17 16:30 10/23/17 21:06 10/24/17 01:15 10/24/17 01:24 Bedside Glucose 148 270 H 243 H Urine Color YELLOW Urine Clarity SLIGHTLY CLOUDY A Urine pH 5.0 Urine Specific [place] 1.016 Urine Ketones TRACE A Urine Nitrite NEGATIVE Urine Bilirubin NEGATIVE Urine Urobilinogen 1+ H Urine Leukocyte Esterase 2+ H Urine Microscopic RBC 1 Urine Microscopic WBC 39 H Urine Squamous Epithelial Cells FEW Urine Bacteria FEW A Urine Hyaline Casts FEW A Urine Hemoglobin 1+ H Urine Random Creatinine 140.50 Urine Random Sodium 22 L Urine Glucose 1+ H Urine Total Protein 32.0 H Test 10/24/17 04:43 10/24/17 08:19 White Blood Count 14.4 H Red Blood Count 3.16 L Hemoglobin 8.9 L Hematocrit 29.3 L Mean Corpuscular Volume 92.7 Mean Corpuscular Hemoglobin 28.2 L Mean Corpuscular Hemoglobin Concent 30.4 L Red Cell Distribution Width 15.9 H Platelet Count 338 Mean Platelet Volume 10.4 Neutrophils % Segmented Neutrophils % (Manual) 86 H Band Neutrophils % (Manual) 10 H Lymphocytes % Lymphocytes % (Manual) 3 L Monocytes % Monocytes % (Manual) 1 Eosinophils % Basophils % Nucleated Red Blood Cells % 0.1 H Neutrophils # Neutrophils # (Manual) 12.6 H Band Neutrophils # 1.4 H Absolute Lymphocytes (Manual) 0.4 L Lymphocytes # Monocytes # Absolute Monocytes (Manual) 0.1 L Eosinophils # Basophils # Nucleated Red Blood Cells # Platelet Estimate NORMAL Giant Platelets 2 H Polychromasia 1+ Poikilocytosis 1+ Anisocytosis 1+ Microcytosis 1+ Sodium Level 136 Potassium Level 4.9 Chloride Level 107 Carbon Dioxide Level 17 L Anion Gap 17 H Blood Urea Nitrogen 31 H Creatinine 1.95 H Glucose Level 242 H Calcium Level 8.0 L Phosphorus Level 3.4 Magnesium Level 1.7 Total Bilirubin 0.1 L Direct Bilirubin 0.00 Indirect Bilirubin 0.1 Aspartate Amino Transf (AST/SGOT) 68 H Alanine Aminotransferase (ALT/SGPT) 49 Alkaline Phosphatase 104 Total Protein 5.0 #L Albumin 2.4 L Globulin 2.60 Albumin/Globulin Ratio 0.92 Bedside Glucose 258 H Medications Medications Current Medications Sodium Chloride (NS) 1,000 ml @ 100 mls/hr Q10H IV Last administered on 08:38; Admin Dose 100 MLS/HR; Start 10/23/17 at 11:00 Ondansetron HCl (Zofran Inj) 4 mg Q6H PRN IV NAUSEA AND/OR VOMITING; Start at 11:00 Acetaminophen (Tylenol Tab) 650 mg Q6H PRN PO PAIN LEVEL 1-3 OR FEVER; Start 10/23/17 at 11:00 Acetaminophen/ Hydrocodone Bitart ([place] (5/325)) 1 tab Q6H PRN PO MODERATE PAIN LEVEL 4-6; Start 10/23/17 at 11:00 Pantoprazole (Protonix Iv) 40 mg DAILY@06 IV Last administered on 10/24/17 06 :50; Admin Dose 40 MG; Start 10/24/17 at 06:00 Clonidine (Catapres) 0.1 mg TID PO Last administered on 10/24/17 08:38; Admin Dose 0.1 MG; Start 10/23/17 at 13:00 Atorvastatin Calcium (Lipitor) 10 mg QHS PO Last administered on 10/23/17 20: 46; Admin Dose 10 MG; Start 10/23/17 at 21:00 Oxycodone/ Acetaminophen (Percocet (5/ 325)) 1 tab Q4H PRN PO MILD PAIN (1-3); Start 10/23/17 at 16:00 Oxycodone/ Acetaminophen (Percocet (5/ 325)) 2 tab Q4H PRN PO MODERATE PAIN (4- 6); Start 10/23/17 at 16:00 Morphine Sulfate (morphine) 2 mg ONCE PRN IV SEVERE PAIN LEVEL 7-10; Start at 16:00; Stop 10/24/17 at 15:59 Ondansetron HCl 4 mg 4 mg Q6H PRN IV NAUSEA; Start 10/23/17 at 16:00 Piperacillin Sod/ Tazobactam Sod (Zosyn 2.25gm/ 50ml (Pmx)) 50 ml @ 100 mls/hr Q8 IVPB Last administered on 10/24/17t 06:50; Admin Dose 100 MLS/HR; Start at 18:30 Diagnostic Test (Pha) (Accu-Chek) 1 ea 02 XX ; Start 10/24/17 at 02:00 Miscellaneous Information 1 ea NOTE XX ; Start 10/23/17 at 21:00 Glucose (Glutose) 15 gm Q15M PRN PO DECREASED GLUCOSE; Start 10/23/17 at 21:00 Glucose (Glutose) 22.5 gm Q15M PRN PO DECREASED GLUCOSE; Start 10/23/17 at 21: 00 Dextrose (D50w Syringe) 25 ml Q15M PRN IV DECREASED GLUCOSE; Start 10/23/17 at 21:00 Dextrose (D50w Syringe) 50 ml Q15M PRN IV DECREASED GLUCOSE; Start 10/23/17 at 21:00 Glucagon (Glucagen) 1 mg Q15M PRN IM DECREASED GLUCOSE; Start 10/23/17 at 21: 00 Glucose (Glutose) 15 gm Q15M PRN BUCCAL DECREASED GLUCOSE; Start 10/23/17 at 21:00 JAMES LIZARRAGA MD Oct 24, 2017 12:32
[2017-10-24 12:54] VITALS: BP 145/65; PULSE 89; RESP 18
[2017-10-24] MEDS: LISINOPRIL 5 MG TAB PO SCH (12:56)
[2017-10-24] MEDS: GLIMEPIRIDE 2 MG TAB PO SCH (13:38)
--- NOTE | 2017-10-24 14:00 | PN ---
DATE: 10/24/2017 SUBJECTIVE: The patient is status post laparoscopic cholecystectomy. No other acute events noted o vernight. Urinary output has been marginal. OBJECTIVE: VITAL SIGNS: Blood pressure is 131/63, respirations 19, pulse 87, temperature 97.7. HEENT: Head is normocephalic. NECK: Supple. HEART: Regular rate. LUNGS: Show diminished breath sounds at the base. ABDOMEN: Soft, nontender to palpation. No rebound or guarding. EXTREMITIES: Negative for clubbing, cyanosis, no edema. DERMATOLOGIC: No rashes. MUSCULOSKELETAL: No joint effusions. NEUROLOGIC: No change in exam. MEDICATIONS: The patient's medications have been reviewed. LABORATORY DATA: Shows sodium 136, potassium 4.9, BUN 31, creatinine 1.95, white count 14.4, hemogl obin 8.9, platelet count is 338. ASSESSMENT AND PLAN: 1. Nonoliguric acute kidney injury on top of chronic kidney disease stage III with a baseline creat inine of 1.3 and 1.5 mg/dL. Etiology of acute kidney injury is secondary to hemodynamics, possible sepsis, possible acute tubular necrosis. The patient's renal function was stable in the last 24 chen rs. However, urinary output has been recorded as being marginal. The patient's initial urinalysis was reviewed which showed evidence of pyuria and a FENa less than 1%, suggesting a prerenal etiology . Plan would be to continue IV fluids at this time and monitor renal function closely. Please note , renal ultrasound was also reviewed, showed no evidence of obstruction. 2. Hyponatremia secondary to acute kidney injury, improved. Continue to monitor. 3. Anemia. Monitor hemoglobin and hematocrit levels. 4. Mineral bone disorder. Monitor calcium and phosphorus levels. 5. Acute cholecystitis, status post laparoscopic cholecystectomy. Continue to monitor. Follow up with general surgery. The patient is on antibiotic therapy, continue. 6. Hypertension. Continue current blood pressure regimen. 7. Dyslipidemia. Continue statin therapy. 8. Metabolic acidosis secondary to acute kidney injury. Dictated By: OMAIRA CABA/DAYA Conf#: [id number] DID#: [id number] CC: ELDER TRAN MD;*EndCC*
[2017-10-24 14:09] VITALS: BP 161/73; RESP 19
--- NOTE | 2017-10-24 15:24 | CONS ---
Date/Time of Note Date/Time of Note DATE: 10/24/17 TIME: 15:00 Assessment/Plan Assessment/Plan Chief Complaint/Hosp Course Assessment: GI bleed-no signs of overt bleeding Status post lap rosa 10/23/17 Oliguria after surgery Gastritis Hypertension Diabetes mellitus Arthritis Plan: Monitor for signs of GI bleeding Continue monitoring H&H transfuse for hemoglobin less than 7.5 Patient needs EGD and colonoscopy down the road (follow-up was GI after discharge) Patient is seen by psychologist industrial organizational Continue omeprazole Advance diet as tolerated per surgical team Patient is seen in collaboration with Dr. Vasquez Subjective: Patient is feeling well, pain is adequately controlled, she is eating regular diet. Urine output has been low after surgery. Seen by psychologist industrial organizational. GILBERT drain has serosanguineous drainage in the bulb . Patient was interviewed and examined. Need for EGD and colonoscopy as he has been explained. Risks and benefits of the procedure has been reviewed. If patient discharged tomorrow will follow up outpatient. All laboratory values have been reviewed. Treatment plan has been reviewed with nursing staff. Problems: Consultation Date/Type/Reason Admit Date/Time Oct 23, 2017 at 08:36 Date of Consultation: Oct 24, 2017 Type of Consultation: GI Reason for Consultation Hematochezia Hx of Present Illness This is a 62-year-old female who was admitted initially for bright red blood per rectum 2 days ago that resolved the same day. She describes noticing blood clots in the stool on 3 different occasions . The day after she was admitted patient undergone laparoscopic cholecystectomy yesterday with GILBERT drain insertion. Patient denies nausea, hematemesis, melena, or anorectal symptoms. patient is morbidly obese, other problems include hypertension, dyslipidemia, diabetes mellitus type 2, arthritis, and gastritis (diagnosed with PUD in [address] scan). Her home medications include omeprazole, clonidine, simvastatin, Tylenol. Previous surgeries include recent lap rosa, right shoulder surgery, and 2 C-sections. She denies any family history of cancer, diabetes, heart disease. Patient denies smoking, drinking or illicit drug use. Current hemoglobin is 8.9. Will continue monitoring H&H and transfuse for hemoglobin less than 7.5. Patient needs EGD and colonoscopy, however it is not emergent and can be done as an outpatient. Gastrointestinal: no complaints (See HPI) Past Medical History Hypertension, cholelithiasis/cholecystitis, diabetes mellitus type II, dyslipidemia, arthritis, gastritis/history of PUD Medical History: high cholesterol, hypertension, other (Gastric ulcers, prediabetes) Past Surgical History Lap rosa, 2, right shoulder surgery Past Surgical Hx: other (, righ arm surgery) Family History Significant Family History: no pertinent family hx Social History Patient lives with her , she is not working Alcohol Use: none Smoking Status: Never smoker Drug Use: none Exam/Review of Systems Vital Signs Vitals Vital Signs Date Time Temp Pulse Resp B/P Pulse Ox O2 Delivery O2 Flow Rate FiO2 10/24/17 14:09 98.8 86 19 161/73 96 10/23/17 18:24 Room Air 10/23/17 16:46 3.0 Intake and Output 10/23/17 10/23/17 10/24/17 15:00 23:00 07:00 Intake Total 1610 ml 1070 ml Output Total 55 ml 225 ml Balance 1555 ml 845 ml Exam PHYSICAL EXAMINATION: GENERAL: Well developed, morbidly obese, well nourished, alert & oriented x 3, in no acute distress SKIN: No lesions, no stigmata chronic liver disease, no evidence of bleeding diathesis, multiple bruising and darkening of lower extremities due to peripheral vascular disease LYMPHATIC: No palpable lymphadenopathy. HEAD: Normocephalic, atraumatic, no tenderness. EYES: Pupils equal reactive to light and accommodation, full extraocular movements, sclera clear, non-icteric, no discharge. EARS/NOSE AND THROAT: Ears normal, nose normal, oropharynx normal, oral membranes well hydrated without lesions. NECK: Supple, no masses, thyroid normal, JVP within normal limits, carotids normal without bruits. CHEST: Inspection within normal limits. CARDIOVASCULAR: Heart: Regular rate and rhythm, no murmurs, gallops or rubs. Peripheral pulses present within normal limits, no cyanosis, clubbing or edemas. No pulsatile abdominal mass RESPIRATORY: Lungs clear to auscultation and percussion, no wheezing, no rubs GASTROINTESTINAL AND LIVER: Abdomen: Soft, obese, surgical incisions covered with gauze and Tegaderm and GILBERT drain with serosanguineous drainage, tenderness at the surgical site, non-distended, no hernias, no masses, no organomegaly, no ascites, no guarding, no rebound tenderness, normoactive bowel sounds. Rectal: Deferred. GENITOURINARY: Female genitalia within normal limits. EXTREMITIES: No cyanosis, clubbing or edema. Results Result Diagram: 10/24/17 0443 10/24/17 0443 Results 24 hrs Laboratory Tests Test 10/23/17 16:30 10/23/17 21:06 10/24/17 01:15 10/24/17 01:24 Bedside Glucose 148 270 H 243 H Urine Color YELLOW Urine Clarity SLIGHTLY CLOUDY A Urine pH 5.0 Urine Specific [place] 1.016 Urine Ketones TRACE A Urine Nitrite NEGATIVE Urine Bilirubin NEGATIVE Urine Urobilinogen 1+ H Urine Leukocyte Esterase 2+ H Urine Microscopic RBC 1 Urine Microscopic WBC 39 H Urine Squamous Epithelial Cells FEW Urine Bacteria FEW A Urine Hyaline Casts FEW A Urine Hemoglobin 1+ H Urine Random Creatinine 140.50 Urine Random Sodium 22 L Urine Glucose 1+ H Urine Total Protein 32.0 H Test 10/24/17 04:43 10/24/17 08:19 10/24/17 12:45 10/24/17 12:56 White Blood Count 14.4 H Red Blood Count 3.16 L Hemoglobin 8.9 L Hematocrit 29.3 L Mean Corpuscular Volume 92.7 Mean Corpuscular Hemoglobin 28.2 L Mean Corpuscular Hemoglobin Concent 30.4 L Red Cell Distribution Width 15.9 H Platelet Count 338 Mean Platelet Volume 10.4 Neutrophils % Segmented Neutrophils % (Manual) 86 H Band Neutrophils % (Manual) 10 H Lymphocytes % Lymphocytes % (Manual) 3 L Monocytes % Monocytes % (Manual) 1 Eosinophils % Basophils % Nucleated Red Blood Cells % 0.1 H Neutrophils # Neutrophils # (Manual) 12.6 H Band Neutrophils # 1.4 H Absolute Lymphocytes (Manual) 0.4 L Lymphocytes # Monocytes # Absolute Monocytes (Manual) 0.1 L Eosinophils # Basophils # Nucleated Red Blood Cells # Platelet Estimate NORMAL Giant Platelets 2 H Polychromasia 1+ Poikilocytosis 1+ Anisocytosis 1+ Microcytosis 1+ Sodium Level 136 Potassium Level 4.9 Chloride Level 107 Carbon Dioxide Level 17 L Anion Gap 17 H Blood Urea Nitrogen 31 H Creatinine 1.95 H Glucose Level 242 H Calcium Level 8.0 L Phosphorus Level 3.4 Magnesium Level 1.7 Total Bilirubin 0.1 L Direct Bilirubin 0.00 Indirect Bilirubin 0.1 Aspartate Amino Transf (AST/SGOT) 68 H Alanine Aminotransferase (ALT/SGPT) 49 Alkaline Phosphatase 104 Total Protein 5.0 #L Albumin 2.4 L Globulin 2.60 Albumin/Globulin Ratio 0.92 Bedside Glucose 258 H 252 H Hepatitis B Surface Antigen NEGATIVE Hepatitis C Antibody NEGATIVE Medications Medications Current Medications Sodium Chloride (NS) 1,000 ml @ 100 mls/hr Q10H IV Last administered on 08:38; Admin Dose 100 MLS/HR; Start 10/23/17 at 11:00 Ondansetron HCl (Zofran Inj) 4 mg Q6H PRN IV NAUSEA AND/OR VOMITING; Start at 11:00 Acetaminophen (Tylenol Tab) 650 mg Q6H PRN PO PAIN LEVEL 1-3 OR FEVER; Start 10/23/17 at 11:00 Acetaminophen/ Hydrocodone Bitart ([place] (5/325)) 1 tab Q6H PRN PO MODERATE PAIN LEVEL 4-6; Start 10/23/17 at 11:00 Pantoprazole (Protonix Iv) 40 mg DAILY@06 IV Last administered on 10/24/17 06 :50; Admin Dose 40 MG; Start 10/24/17 at 06:00 Clonidine (Catapres) 0.1 mg TID PO Last administered on 10/24/17 12:56; Admin Dose 0.1 MG; Start 10/23/17 at 13:00 Atorvastatin Calcium (Lipitor) 10 mg QHS PO Last administered on 10/23/17 20: 46; Admin Dose 10 MG; Start 10/23/17 at 21:00 Oxycodone/ Acetaminophen (Percocet (5/ 325)) 1 tab Q4H PRN PO MILD PAIN (1-3); Start 10/23/17 at 16:00 Oxycodone/ Acetaminophen (Percocet (5/ 325)) 2 tab Q4H PRN PO MODERATE PAIN (4- 6); Start 10/23/17 at 16:00 Morphine Sulfate (morphine) 2 mg ONCE PRN IV SEVERE PAIN LEVEL 7-10; Start at 16:00; Stop 10/24/17 at 15:59 Ondansetron HCl 4 mg 4 mg Q6H PRN IV NAUSEA; Start 10/23/17 at 16:00 Piperacillin Sod/ Tazobactam Sod (Zosyn 2.25gm/ 50ml (Pmx)) 50 ml @ 100 mls/hr Q8 IVPB Last administered on 10/24/17 13:39; Admin Dose 100 MLS/HR; Start at 18:30 Diagnostic Test (Pha) (Accu-Chek) 1 ea 02 XX ; Start 10/24/17 at 02:00 Miscellaneous Information 1 ea NOTE XX ; Start 10/23/17 at 21:00 Glucose (Glutose) 15 gm Q15M PRN PO DECREASED GLUCOSE; Start 10/23/17 at 21:00 Glucose (Glutose) 22.5 gm Q15M PRN PO DECREASED GLUCOSE; Start 10/23/17 at 21: 00 Dextrose (D50w Syringe) 25 ml Q15M PRN IV DECREASED GLUCOSE; Start 10/23/17 at 21:00 Dextrose (D50w Syringe) 50 ml Q15M PRN IV DECREASED GLUCOSE; Start 10/23/17 at 21:00 Glucagon (Glucagen) 1 mg Q15M PRN IM DECREASED GLUCOSE; Start 10/23/17 at 21: 00 Glucose (Glutose) 15 gm Q15M PRN BUCCAL DECREASED GLUCOSE; Start 10/23/17 at 21:00 Lisinopril (Zestril) 5 mg DAILY PO Last administered on 10/24/17 12:56; Admin Dose 5 MG; Start 10/24/17 at 12:30 Copies To: CC: CESARIO VASQUEZ MD, ANASTASIA NP Oct 24, 2017 15:10
[2017-10-24 20:20] VITALS: BP 131/67; RESP 18
[2017-10-24] MEDS: ATORVASTATIN 10 MG TAB PO SCH (20:40)
[2017-10-24 22:17] LABS: ADD UMIC YES; UR ASCORBIC ACID NEGATIVE (NEGATIVE); UR BILIRUBIN (Dip) NEGATIVE (NEGATIVE); UR BLOOD (Dip) 1+ mg/dL (NEGATIVE); UR CLARITY CLOUDY (CLEAR); UR COLOR YELLOW (YELLOW); UR GLUCOSE (Dip) 1+ mg/dL (NEGATIVE); UR KETONES (Dip) NEGATIVE (NEGATIVE); UR LEUKOCYTE ESTERASE (Dip) 1+ Leu/ul (NEGATIVE); UR NITRITE (Dip) NEGATIVE (NEGATIVE); UR RBC 3 /HPF (0-5); UR SPECIFIC GRAVITY (Dip) 1.012 (1.003-1.030); UR SQUAMOUS EPITHELIAL CELL FEW /HPF (FEW); UR TOTAL PROTEIN (Dip) NEGATIVE (NEGATIVE); UR URIC ACID CRYSTAL MODERATE /HPF (NONE SEEN); UR UROBILINOGEN (Dip) NEGATIVE (NEGATIVE)
[2017-10-25] VITALS (13 sets, daily range): BP systolic 128–195; BP diastolic 58–88; PULSE 72–80; RESP 16–27
[2017-10-25] MEDS: ACCU-CHEK XX SCH (02:00)
[2017-10-25] MEDS: SOD CHLORIDE 0.9% 1,000 ML IV SCH ×2 (03:00→08:12)
[2017-10-25 05:33] LABS: BASOPHILS % 0.2 % (0.0-2.0); HEMATOCRIT 25.7 % (37.0-47.0); HEMOGLOBIN 7.9 g/dl (12.0-16.0); LYMPHOCYTES # 0.9 10^3/ul (0.8-2.9); LYMPHOCYTES % 7.4 % (15.0-51.0); MEAN CORPUSCULAR HEMOGLOBIN 28.2 pg (29.0-33.0); MEAN CORPUSCULAR HGB CONC 30.7 g/dl (32.0-37.0); MEAN CORPUSCULAR VOLUME 91.8 fl (82.0-101.0); MEAN PLATELET VOLUME 10.5 fl (7.4-10.4); MONOCYTE # 0.7 10^3/ul (0.3-0.9); MONOCYTES % 5.8 % (0.0-11.0); NEUTROPHIL # 10.7 10^3/ul (1.6-7.5); NEUTROPHILS % 84.9 % (39.0-77.0); PLATELET COUNT 322 10^3/UL (140-415); WHITE BLOOD COUNT 12.7 10^3/ul (4.8-10.8)
[2017-10-25] MEDS: PANTOPRAZOLE 40 MG INJ IV SCH (06:00)
[2017-10-25] MEDS: PIPER-TAZO 2.25 GM (PMX) 50 ML IVPB SCH ×3 (06:00→21:12)
[2017-10-25 06:03] LABS: CALCIUM 7.6 mg/dl (8.4-10.2); CREATININE 1.52 mg/dl (0.44-1.00); MAGNESIUM 1.8 mg/dl (1.7-2.5); PHOSPHORUS 2.9 mg/dl (2.5-4.9); POTASSIUM 4.4 mmol/L (3.5-5.1)
[2017-10-25] MEDS: GLIMEPIRIDE 2 MG TAB PO SCH (08:13)
[2017-10-25] MEDS: INSULIN ASPART [NOVOLOG] 3 ML PEN SC SCH ×4 (08:15→21:00)
[2017-10-25] MEDS: LISINOPRIL 5 MG TAB PO SCH (08:16)
--- NOTE | 2017-10-25 09:33 | PN ---
Date/Time of Note Date/Time of Note DATE: 10/25/17 TIME: 09:28 Assessment/Plan VTE Prophylaxis VTE Prophylaxis Intervention: SCD's Lines/Catheters IV [facility]ter Type (from [facility]): Peripheral IV Urinary Cath still in place: No Assessment/Plan Chief Complaint/Hosp Course Assessment: Anemia/trending down Status post lap rosa 10/23/17 Oliguria after surgery Gastritis Hypertension Diabetes mellitus Arthritis Plan: Hgb continues to drop today 7.9 Patient will need EGD today, keep patient NPO Continue PPI therapy Patient is seen in collaboration with Dr. Vasquez Subjective: Patient states c/o dizziness when tried to get oob today. HGB continues to drop, Will plan for EGD today pt to be NPO. Continue to monitor H/H transfuse as needed. Discussed plan of EGD discussed risk and benefits both patient and family PHYSICAL EXAMINATION: GENERAL: Well developed, morbidly obese, well nourished, alert & oriented x 3, in no acute distress SKIN: No lesions, no stigmata chronic liver disease, no evidence of bleeding diathesis, multiple bruising and darkening of lower extremities due to peripheral vascular disease LYMPHATIC: No palpable lymphadenopathy. HEAD: Normocephalic, atraumatic, no tenderness. EYES: Pupils equal reactive to light and accommodation, full extraocular movements, sclera clear, non-icteric, no discharge. EARS/NOSE AND THROAT: Ears normal, nose normal, oropharynx normal, oral membranes well hydrated without lesions. NECK: Supple, no masses, thyroid normal, JVP within normal limits, carotids normal without bruits. CHEST: Inspection within normal limits. CARDIOVASCULAR: Heart: Regular rate and rhythm, no murmurs, gallops or rubs. Peripheral pulses present within normal limits, no cyanosis, clubbing or edemas. No pulsatile abdominal mass RESPIRATORY: Lungs clear to auscultation and percussion, no wheezing, no rubs GASTROINTESTINAL AND LIVER: Abdomen: Soft, obese, surgical incisions covered with dressing and GILBERT drain with serosanguineous drainage, tenderness at the surgical site, non-distended, no hernias, no masses, no organomegaly, no ascites , no guarding, no rebound tenderness, normoactive bowel sounds. Rectal: external hemorrhoids, GENITOURINARY: Female genitalia within normal limits. EXTREMITIES: No cyanosis, clubbing or edema. Problems: Exam/Review of Systems Vital Signs Vitals Vital Signs Date Time Temp Pulse Resp B/P Pulse Ox O2 Delivery O2 Flow Rate FiO2 10/25/17 07:56 98.6 76 18 132/63 96 10/23/17 18:24 Room Air 10/23/17 16:46 3.0 Intake and Output 10/24/17 10/24/17 10/25/17 15:00 23:00 07:00 Intake Total 350 ml 1720 ml 800 ml Output Total 530 ml 480 ml Balance 350 ml 1190 ml 320 ml Results Result Diagram: 10/25/17 0440 10/25/17 0440 Results 24 hrs Laboratory Tests Test 10/24/17 12:45 10/24/17 12:56 10/24/17 18:06 10/24/17 19:00 Bedside Glucose 252 H 244 H Hepatitis B Surface Antigen NEGATIVE Hepatitis C Antibody NEGATIVE Urine Color YELLOW Urine Clarity CLOUDY A Urine pH 5.0 Urine Specific [place] 1.012 Urine Ketones NEGATIVE Urine Nitrite NEGATIVE Urine Bilirubin NEGATIVE Urine Urobilinogen NEGATIVE Urine Leukocyte Esterase 1+ H Urine Microscopic RBC 3 Urine Microscopic WBC 29 H Urine Squamous Epithelial Cells FEW Urine Uric Acid Crystals MODERATE Urine Hemoglobin 1+ H Urine Glucose 1+ H Urine Total Protein NEGATIVE Test 10/24/17 20:37 10/25/17 02:53 10/25/17 04:40 10/25/17 08:11 Bedside Glucose 204 222 H 219 White Blood Count 12.7 H Red Blood Count 2.80 L Hemoglobin 7.9 L Hematocrit 25.7 L Mean Corpuscular Volume 91.8 Mean Corpuscular Hemoglobin 28.2 L Mean Corpuscular Hemoglobin Concent 30.7 L Red Cell Distribution Width 16.0 H Platelet Count 322 Mean Platelet Volume 10.5 H Neutrophils % 84.9 H Lymphocytes % 7.4 L Monocytes % 5.8 Eosinophils % 0.0 Basophils % 0.2 Nucleated Red Blood Cells % 0.0 Neutrophils # 10.7 H Lymphocytes # 0.9 Monocytes # 0.7 Eosinophils # 0.0 Basophils # 0.0 Nucleated Red Blood Cells # 0.0 Sodium Level 138 Potassium Level 4.4 Chloride Level 109 Carbon Dioxide Level 20 L Anion Gap 13 Blood Urea Nitrogen 29 H Creatinine 1.52 H Glucose Level 217 Calcium Level 7.6 L Phosphorus Level 2.9 Magnesium Level 1.8 Medications Medications Current Medications Sodium Chloride (NS) 1,000 ml @ 50 mls/hr Q20H IV Last administered on 08:12; Admin Dose 100 MLS/HR; Start 10/23/17 at 11:00 Ondansetron HCl (Zofran Inj) 4 mg Q6H PRN IV NAUSEA AND/OR VOMITING; Start at 11:00 Acetaminophen (Tylenol Tab) 650 mg Q6H PRN PO PAIN LEVEL 1-3 OR FEVER; Start 10/23/17 at 11:00 Acetaminophen/ Hydrocodone Bitart ([place] (5/325)) 1 tab Q6H PRN PO MODERATE PAIN LEVEL 4-6; Start 10/23/17 at 11:00 Pantoprazole (Protonix Iv) 40 mg DAILY@06 IV Last administered on 10/25/17 06 :00; Admin Dose 40 MG; Start 10/24/17 at 06:00 Clonidine (Catapres) 0.1 mg TID PO Last administered on 10/25/17 08:16; Admin Dose 0.1 MG; Start 10/23/17 at 13:00 Atorvastatin Calcium (Lipitor) 10 mg QHS PO Last administered on 10/24/17 20: 40; Admin Dose 10 MG; Start 10/23/17 at 21:00 Oxycodone/ Acetaminophen (Percocet (5/ 325)) 1 tab Q4H PRN PO MILD PAIN (1-3); Start 10/23/17 at 16:00 Oxycodone/ Acetaminophen (Percocet (5/ 325)) 2 tab Q4H PRN PO MODERATE PAIN (4- 6); Start 10/23/17 at 16:00 Ondansetron HCl 4 mg 4 mg Q6H PRN IV NAUSEA; Start 10/23/17 at 16:00 Piperacillin Sod/ Tazobactam Sod (Zosyn 2.25gm/ 50ml (Pmx)) 50 ml @ 100 mls/hr Q8 IVPB Last administered on 10/25/17 06:00; Admin Dose 100 MLS/HR; Start at 18:30 Diagnostic Test (Pha) (Accu-Chek) 1 ea 02 XX ; Start 10/24/17 at 02:00 Miscellaneous Information 1 ea NOTE XX ; Start 10/23/17 at 21:00 Glucose (Glutose) 15 gm Q15M PRN PO DECREASED GLUCOSE; Start 10/23/17 at 21:00 Glucose (Glutose) 22.5 gm Q15M PRN PO DECREASED GLUCOSE; Start 10/23/17 at 21: 00 Dextrose (D50w Syringe) 25 ml Q15M PRN IV DECREASED GLUCOSE; Start 10/23/17 at 21:00 Dextrose (D50w Syringe) 50 ml Q15M PRN IV DECREASED GLUCOSE; Start 10/23/17 at 21:00 Glucagon (Glucagen) 1 mg Q15M PRN IM DECREASED GLUCOSE; Start 10/23/17 at 21: 00 Glucose (Glutose) 15 gm Q15M PRN BUCCAL DECREASED GLUCOSE; Start 10/23/17 at 21:00 Lisinopril (Zestril) 5 mg DAILY PO Last administered on 10/25/17t 08:16; Admin Dose 5 MG; Start 10/24/17 at 12:30 BALTA HENDERSON Oct 25, 2017 09:33 BALTA HENDERSON Oct 25, 2017 09:33
--- NOTE | 2017-10-25 10:45 | PN ---
Date/Time of Note Date/Time of Note DATE: 10/25/17 TIME: 10:30 Assessment/Plan VTE Prophylaxis VTE Prophylaxis Intervention: ambulation, SCD's Lines/Catheters [facility] Peripheral IV Urinary Cath still in place: No Assessment/Plan Chief Complaint/Hosp Course 62-year-old female transferred from outside hospital for abdominal pain and hematochezia who was found to have leukocytosis with acute cholecystitis and acute anemia. 1. Cholecystitis. Status: Acute -S/P laparoscopic cholecystectomy 10/23/2017 -Recovering nicely. Postoperative management per surgery colleagues. 2. Anemia, rule out GI bleed. Status: Acute -Patient is for EGD by GI colleagues today. -Monitor H&H closely and transfuse as needed. 3. Acute kidney injury on chronic kidney disease. Status: Acute on chronic. -Renal function nicely stabilizing. -Nephrology following. Continue to monitor renal function closely as patient is not started on BERNIE inhibitors. 4. Diabetes mellitus type 2. A1c 7.4. Status: Chronic -Started on oral agent as patient is likely noncompliant with insulin regimen. -Continue sliding scale insulin. Monitor blood sugar trends -Diabetic education. 5. Essential hypertension. Status: Chronic -Continue antihypertensives. 6. Dyslipidemia. Status: Chronic -On statin 7. Morbid obesity with BMI 41.2. Status: Chronic -Lifestyle changes/weight reduction advised. 8. Presumptive urinary tract infection based on UA. Status: Acute -Please note that urine cultures were done after patient received antibiotics. A repeat UA showed evidence of UTI clearing up. -Continue antibiotics. Follow-up with endoscopic findings. Patient was in collaboration with Problems: Subjective 24 Hr Interval Summary Free Text/Dictation Status post laparoscopic cholecystectomy. Tolerating diet. Denied any nausea, vomiting or abdominal pain. Denied any upper or lower GI bleeding episodes. Exam/Review of Systems Vital Signs Vitals Vital Signs Date Time Temp Pulse Resp B/P Pulse Ox O2 Delivery O2 Flow Rate FiO2 10/25/17 07:56 98.6 76 18 132/63 96 10/23/17 18:24 Room Air 10/23/17 16:46 3.0 Intake and Output 10/24/17 10/24/17 10/25/17 15:00 23:00 07:00 Intake Total 350 ml 1720 ml 800 ml Output Total 530 ml 480 ml Balance 350 ml 1190 ml 320 ml Exam General: Morbidly obese female not in any acute distress . HEENT: Normocephalic, Atraumatic, No laceration or hematoma; Eyes: PEERL, Conjunctiva clear, Anicteric sclera Neck: Supple without any lymphadenopathy, nontender, no JVD, no carotid bruits, trachea midline, no thyromegaly Cardiac: S1, S2 auscultated, regular rhythm and rate, no mumurs or gallop Pulmonary: Normal respiratory effort. Chest clear to auscultation bilaterally, no adventitious breath sounds GI: With laparoscopic incision site intact. Abdomen obese to inspection. Soft, non tender, non- distended, no masses, no rebound tenderness or guarding. Bowel sounds active on all four quadrants Genitourinary: Deferred Extremities: No cyanosis, clubbing, or edema. Pulses [2+] bilaterally. Full ROM on all four extremities. No focal weakness appreciated. Neurologic: Alert to person, place, time, and situation. Affect appropriate, intact sensation. Skin: Generalized petechiae all over the body. Results Result Diagram: 10/25/17 0440 10/25/17 0440 Results 24 hrs Laboratory Tests Test 10/24/17 12:45 10/24/17 12:56 10/24/17 18:06 10/24/17 19:00 Bedside Glucose 252 H 244 H Hepatitis B Surface Antigen NEGATIVE Hepatitis C Antibody NEGATIVE Urine Color YELLOW Urine Clarity CLOUDY A Urine pH 5.0 Urine Specific [place] 1.012 Urine Ketones NEGATIVE Urine Nitrite NEGATIVE Urine Bilirubin NEGATIVE Urine Urobilinogen NEGATIVE Urine Leukocyte Esterase 1+ H Urine Microscopic RBC 3 Urine Microscopic WBC 29 H Urine Squamous Epithelial Cells FEW Urine Uric Acid Crystals MODERATE Urine Hemoglobin 1+ H Urine Glucose 1+ H Urine Total Protein NEGATIVE Test 10/24/17 20:37 10/25/17 02:53 10/25/17 04:40 10/25/17 08:11 Bedside Glucose 204 222 H 219 White Blood Count 12.7 H Red Blood Count 2.80 L Hemoglobin 7.9 L Hematocrit 25.7 L Mean Corpuscular Volume 91.8 Mean Corpuscular Hemoglobin 28.2 L Mean Corpuscular Hemoglobin Concent 30.7 L Red Cell Distribution Width 16.0 H Platelet Count 322 Mean Platelet Volume 10.5 H Neutrophils % 84.9 H Lymphocytes % 7.4 L Monocytes % 5.8 Eosinophils % 0.0 Basophils % 0.2 Nucleated Red Blood Cells % 0.0 Neutrophils # 10.7 H Lymphocytes # 0.9 Monocytes # 0.7 Eosinophils # 0.0 Basophils # 0.0 Nucleated Red Blood Cells # 0.0 Sodium Level 138 Potassium Level 4.4 Chloride Level 109 Carbon Dioxide Level 20 L Anion Gap 13 Blood Urea Nitrogen 29 H Creatinine 1.52 H Glucose Level 217 Calcium Level 7.6 L Phosphorus Level 2.9 Magnesium Level 1.8 Medications Medications Current Medications Sodium Chloride (NS) 1,000 ml @ 50 mls/hr Q20H IV Last administered on 08:12; Admin Dose 100 MLS/HR; Start 10/23/17 at 11:00 Ondansetron HCl (Zofran Inj) 4 mg Q6H PRN IV NAUSEA AND/OR VOMITING; Start at 11:00 Acetaminophen (Tylenol Tab) 650 mg Q6H PRN PO PAIN LEVEL 1-3 OR FEVER; Start 10/23/17 at 11:00 Acetaminophen/ Hydrocodone Bitart ([place] (5/325)) 1 tab Q6H PRN PO MODERATE PAIN LEVEL 4-6; Start 10/23/17 at 11:00 Pantoprazole (Protonix Iv) 40 mg DAILY@06 IV Last administered on 10/25/17 06 :00; Admin Dose 40 MG; Start 10/24/17 at 06:00 Clonidine (Catapres) 0.1 mg TID PO Last administered on 10/25/17 08:16; Admin Dose 0.1 MG; Start 10/23/17 at 13:00 Atorvastatin Calcium (Lipitor) 10 mg QHS PO Last administered on 10/24/17 20: 40; Admin Dose 10 MG; Start 10/23/17 at 21:00 Oxycodone/ Acetaminophen (Percocet (5/ 325)) 1 tab Q4H PRN PO MILD PAIN (1-3); Start 10/23/17 at 16:00 Oxycodone/ Acetaminophen (Percocet (5/ 325)) 2 tab Q4H PRN PO MODERATE PAIN (4- 6); Start 10/23/17 at 16:00 Ondansetron HCl 4 mg 4 mg Q6H PRN IV NAUSEA; Start 10/23/17 at 16:00 Piperacillin Sod/ Tazobactam Sod (Zosyn 2.25gm/ 50ml (Pmx)) 50 ml @ 100 mls/hr Q8 IVPB Last administered on 10/25/17 06:00; Admin Dose 100 MLS/HR; Start at 18:30 Diagnostic Test (Pha) (Accu-Chek) 1 ea 02 XX ; Start 10/24/17 at 02:00 Miscellaneous Information 1 ea NOTE XX ; Start 10/23/17 at 21:00 Glucose (Glutose) 15 gm Q15M PRN PO DECREASED GLUCOSE; Start 10/23/17 at 21:00 Glucose (Glutose) 22.5 gm Q15M PRN PO DECREASED GLUCOSE; Start 10/23/17 at 21: 00 Dextrose (D50w Syringe) 25 ml Q15M PRN IV DECREASED GLUCOSE; Start 10/23/17 at 21:00 Dextrose (D50w Syringe) 50 ml Q15M PRN IV DECREASED GLUCOSE; Start 10/23/17 at 21:00 Glucagon (Glucagen) 1 mg Q15M PRN IM DECREASED GLUCOSE; Start 10/23/17 at 21: 00 Glucose (Glutose) 15 gm Q15M PRN BUCCAL DECREASED GLUCOSE; Start 10/23/17 at 21:00 Lisinopril (Zestril) 5 mg DAILY PO Last administered on 10/25/17 08:16; Admin Dose 5 MG; Start 10/24/17 at 12:30 JEAN MARIE HERNANDEZ NP Oct 25, 2017 10:41
--- NOTE | 2017-10-25 11:14 | PN ---
DATE: 10/25/2017 SUBJECTIVE: The patient is stable. No events overnight. OBJECTIVE: VITAL SIGNS: Blood pressure is 132/63, respiration 18, pulse 76, temperature 98.6. HEENT: Head is normocephalic. NECK: Supple. HEART: Regular rate. LUNGS: Show diminished breath sounds at base. ABDOMEN: Soft, nontender to palpation without rebound or guarding. EXTREMITIES: Negative for clubbing, cyanosis, no edema. DERMATOLOGIC: No rashes. MUSCULOSKELETAL: No joint effusions. NEUROLOGIC: No change in exam. MEDICATIONS: The patient's medications have been reviewed. LABORATORY DATA: Shows sodium 138, potassium 4.4, chloride 109, BUN 29, creatinine of 1.52, white c ount 12.7, hemoglobin 7.9, platelet count is 322. ASSESSMENT AND PLAN: 1. Nonoliguric acute kidney injury on top of chronic kidney disease stage III with a baseline creat inine of 1.3 and 1.5 mg/dL. Etiology of acute kidney injury is secondary to hemodynamics, prerenal volume depletion. The patient's renal function has been improved with IV fluids. At this point, co leroyue current treatment plan, supportive care, renally dose all meds. Will decrease rate of IV flu ids. 2. Hyponatremia secondary to acute kidney injury, resolved. 3. Anemia. Monitor hemoglobin and hematocrit levels. 4. Mineral bone disorder, monitor calcium and phosphorus levels. 5. Acute cholecystitis status post laparoscopic cholecystectomy. Continue to monitor. 6. Hypertension. Continue current blood pressure regimen. 7. Dyslipidemia. Continue statin therapy. 8. Metabolic acidosis secondary to acute kidney injury, resolved. Dictated By: OMAIRA CABA/DAYA Conf#: [id number] DID#: [id number]
--- NOTE | 2017-10-25 16:58 | PN ---
Date/Time of Note Date/Time of Note DATE: 10/25/17 TIME: 16:56 Assessment/Plan Lines/Catheters IV Catheter Type (from [facility]): Peripheral IV Krishna in Place (from [facility]): No Assessment/Plan Chief Complaint/Hosp Course The patient is a morbidly obese 62-year-old female who was diagnosed at all of the hospital last night with acute cholecystitis. She is transferred here for continuance of care. She has had no fevers or chills. Her LFTs are normal Problems: Assessment/Plan GILBERT drainage minimal serosanguineous. Drain DC'd Patient awaiting EGD because of drop in H&H Subjective 24 Hr Interval Summary Postoperative day #2 Patient awake and alert. Exam/Review of Systems Vital Signs Vitals Vital Signs Date Time Temp Pulse Resp B/P Pulse Ox O2 Delivery O2 Flow Rate FiO2 10/25/17 14:46 98.0 74 20 141/66 96 10/23/17 18:24 Room Air 10/23/17 16:46 3.0 Intake and Output 10/24/17 10/24/17 10/25/17 15:00 23:00 07:00 Intake Total 350 ml 1720 ml 800 ml Output Total 530 ml 480 ml Balance 350 ml 1190 ml 320 ml Results Result Diagram: 10/25/170 10/25/17439 TIMA PRICE MD Oct 25, 2017 16:58
--- NOTE | 2017-10-25 17:44 | HPN ---
Date/Time of Note Date/Time of Note DATE: 10/25/17 TIME: 17:44 Interval H&P Admission Note Pt. seen H&P reviewed: No system changes CESARIO APARICIO MD Oct 25, 2017 17:44
[2017-10-25] MEDS ORDERED: PROPOFOL 20 ML ONE (17:46)
[2017-10-25] MEDS ORDERED: LIDOCAINE 2% (SDV) 5 ML INJ ONE (17:46)
--- NOTE | 2017-10-25 18:01 | OPPN ---
Date/Time of Note Date/Time of Note DATE: 10/25/17 TIME: 17:55 Proc Note GI Procedure Date 10/25/17 Indication: other (Anemia) Pre-procedure Diagnosis Anemia Post-procedure Diagnosis Impression: Mild distal esophagitis. Mild gastritis. Rule out H. pylori infection. Biopsies obtained Otherwise normal EGD. Plan: Continue PPI therapy Review pathology Close observation monitor H&H if further drops consider colonoscopy . Procedure Performed: Endoscopy (With biopsies) Surgeon CESARIO APARICIO MD See signature line Disposal Operator none Anesthesia Type: MAC Anesthesiologist: CLINT HINES DO Tourniquet Time none EBL none Transfusion required none Biopsy 1: Gastric antrum Grafts/Implants none Tubes/Drains none Complication(s) none Disposition: PACU Procedure Description After informed consent, with the patient/relatives understanding the procedure, its indications, potential risks and complications, including but not limited to : allergic reaction, bleeding, perforation or infection, and after all pertinent questions were answered to the patients satisfaction, the patient/ relatives signed witnessed informed consent. Following this, premedication was administered slowly IV push under careful cardiovascular and respiratory monitoring with pulse oximetry, automatic blood pressure, and hospital monitor. Once the sedative effect was achieved the patient was place in the left lateral decubitus, the panendoscope was introduced and advanced under visual control. Careful examination of the upper gastrointestinal tract, both on insertion as well as withdrawal of the instrument disclosing the following findings: ESOPHAGUS: the mucosa of the entire esophagus was carefully examined and showed the following findings: There is mild erythema of the mucosa at the esophagogastric junction. Otherwise the mucosa appears within normal limits. There is no evidence of varices, neoplasm, or stricture. No Hiatal Hernia identified. STOMACH: Upon entrance to the stomach air was insufflated, the gastric garcia distended normally. The mucosa of the fundus, body and antrum of the stomach was carefully examined both head-on and on retroflexion, and showed the following findings: There is mild erythema and edema of the mucosa. Rule out H. pylori infection. Biopsies obtained. Otherwise the mucosa appears within normal limits with no abnormalities. There is no evidence of ulcers or neoplasm. PYLORUS: The pylorus was carefully examined and showed the following findings: the pylorus appears patent and within normal limits, with no evidence of gastric outlet obstruction. DUODENUM: The duodenal mucosa was carefully examined in the duodenal bulb as well as the second portion of the duodenum and showed the following findings: the mucosa appears unremarkable with no evidence of duodenitis, ulcer or neoplasm. Copies To: CC: CESARIO APARICIO MD, MORDO MD Oct 25, 2017 18:01
[2017-10-25] MEDS: ATORVASTATIN 10 MG TAB PO SCH (21:04)
[2017-10-26] VITALS: BP 160/76; PULSE 71
[2017-10-26 01:12] LABS: HEMATOCRIT 27.2 % (37.0-47.0); HEMOGLOBIN 8.5 g/dl (12.0-16.0)
[2017-10-26] MEDS: ACCU-CHEK XX SCH (02:00)
[2017-10-26] MEDS ORDERED: hydrALAzine 20 MG INJ IV PRN (02:30)
[2017-10-26 02:56] VITALS: BP 190/78; RESP 18
[2017-10-26 04:28] VITALS: BP 140/65; PULSE 77
[2017-10-26] MEDS: PANTOPRAZOLE 40 MG INJ IV SCH (05:19)
[2017-10-26] MEDS: PIPER-TAZO 2.25 GM (PMX) 50 ML IVPB SCH ×3 (05:19→17:36)
[2017-10-26 06:52] LABS: BASOPHILS % 0.2 % (0.0-2.0); HEMATOCRIT 27.5 % (37.0-47.0); HEMOGLOBIN 8.4 g/dl (12.0-16.0); LYMPHOCYTES # 1.2 10^3/ul (0.8-2.9); LYMPHOCYTES % 8.7 % (15.0-51.0); MEAN CORPUSCULAR HEMOGLOBIN 28.1 pg (29.0-33.0); MEAN CORPUSCULAR HGB CONC 30.5 g/dl (32.0-37.0); MEAN PLATELET VOLUME 10.2 fl (7.4-10.4); MONOCYTE # 1.3 10^3/ul (0.3-0.9); MONOCYTES % 10.1 % (0.0-11.0); NEUTROPHIL # 10.6 10^3/ul (1.6-7.5); NEUTROPHILS % 79.3 % (39.0-77.0); PLATELET COUNT 328 10^3/UL (140-415); RED BLOOD COUNT 2.99 10^6/ul (4.20-5.40); WHITE BLOOD COUNT 13.3 10^3/ul (4.8-10.8)
[2017-10-26 07:41] LABS: CALCIUM 8.4 mg/dl (8.4-10.2); CREATININE 1.26 mg/dl (0.44-1.00); POTASSIUM 3.8 mmol/L (3.5-5.1)
[2017-10-26 07:51] VITALS: BP 145/69; RESP 18
[2017-10-26] MEDS: INSULIN ASPART [NOVOLOG] 3 ML PEN SC SCH ×3 (08:00→17:36)
[2017-10-26] MEDS: GLIMEPIRIDE 2 MG TAB PO SCH (08:13)
[2017-10-26] MEDS: LISINOPRIL 5 MG TAB PO SCH (08:13)
--- NOTE | 2017-10-26 08:14 | PN ---
Date/Time of Note Date/Time of Note DATE: 10/26/17 TIME: 08:13 Assessment/Plan Lines/Catheters IV Catheter Type (from [facility]): Saline Lock Krishna in Place (from [facility]): No Assessment/Plan Chief Complaint/Hosp Course The patient is a morbidly obese 62-year-old female who was diagnosed at all of the hospital last night with acute cholecystitis. She is transferred here for continuance of care. She has had no fevers or chills. Her LFTs are normal Problems: Assessment/Plan Abdominal examination is benign H&H is stable Plan: Cleared for discharge from surgical standpoint. Timing of discharge per hospitalist. Office follow-up 1 week for staple removal Subjective 24 Hr Interval Summary Postoperative day #3 Patient feels quite well overall Exam/Review of Systems Vital Signs Vitals Vital Signs Date Time Temp Pulse Resp B/P Pulse Ox O2 Delivery O2 Flow Rate FiO2 10/26/17 07:51 97.6 70 18 145/69 97 10/25/17 18:44 Room Air 10/23/17 16:46 3.0 Intake and Output 10/25/17 10/25/17 10/26/17 15:00 23:00 07:00 Intake Total 400 ml 750 ml 1000 ml Output Total 1000 ml Balance 400 ml -250 ml 1000 ml Results Result Diagram: 10/26/17 0604 10/26/17 0604 TIMA PRICE MD Oct 26, 2017 08:14
[2017-10-26] MEDS: SOD CHLORIDE 0.9% 1,000 ML IV SCH (08:17)
--- NOTE | 2017-10-26 09:34 | PN ---
DATE: 10/26/2017 SUBJECTIVE: The patient is stable. No events overnight. No fevers, chills, nausea, vomiting. OBJECTIVE: VITAL SIGNS: Blood pressure is 145/69, pulse 70, respirations 18, temperature 97.6. HEENT: Head is normocephalic. NECK: Supple. HEART: Regular rate. LUNGS: Show diminished breath sounds at the base. ABDOMEN: Soft, nontender to palpation. No rebound or guarding. EXTREMITIES: Negative for clubbing, cyanosis. No edema. DERMATOLOGIC: No rashes. MUSCULOSKELETAL: No joint effusions. NEUROLOGIC: No change in exam. MEDICATIONS: The patient's medications have been reviewed. LABORATORY DATA: Shows a sodium 142, potassium 3.8, chloride 113, BUN 24, creatinine 1.26. White c ount 13.3, hemoglobin 8.4, hematocrit 27.5, platelet count is 328. ASSESSMENT AND PLAN: 1. Nonoliguric acute kidney injury on top of chronic kidney disease stage III with a previous basel ine creatinine of 1.3-1.5 mg/dL. Etiology of acute kidney injury is secondary to hemodynamics. Iain al function has been improving with IV fluids. At this point, continue current treatment plan, supp ortive care, renally dose all medications. Will discontinue intravenous fluids. 2. Hyponatremia secondary to acute kidney injury, resolved. 3. Anemia. Monitor hemoglobin and hematocrit levels. 4. Mineral bone disorder. Monitor calcium and phosphorus levels. 5. Acute cholecystitis. The patient is status post laparoscopic cholecystectomy. Continue to [facility] [place]. The patient is on antibiotic therapy. Continue. 6. Hypertension. Continue current blood pressure regimen. 7. Dyslipidemia. Continue statin therapy. 8. Metabolic acidosis, resolved. Dictated By: OMAIRA CABA/NTS Conf#: [id number] DID#: [id number] CC: ELDER TRAN MD;*EndCC*
[2017-10-26] MEDS ORDERED: PIPER-TAZO 2.25 GM (PMX) 50 ML IVPB SCH (12:00)
[2017-10-26 12:16] LABS: HEMATOCRIT 28.8 % (37.0-47.0); HEMOGLOBIN 9.1 g/dl (12.0-16.0)
--- NOTE | 2017-10-26 12:52 | PDOCDIS ---
Discharge Instructions CONDITION Patient Condition: Stable HOME CARE INSTRUCTIONS: Special Diet: Carb controlled diet FOLLOW UP/APPOINTMENTS Follow-up Plan Follow-up with Dr. Curry in 1 week [address] [facility] [address] [place] [address] Office Post operative Instructions *Do not lift anything more than 25 pounds for 6 to 8 weeks *Do not swim or take hot tub bath for 2weeks *Remove dressing and May shower-Use mild soap around site and pat dry *If you notice any oozing, bleeding or other drainage or having fever or chills from site please contact Surgeon's office-If unable to get office, you may go to nearest emergency room. Follow-up with in 4 weeks-recommend outpatient colonoscopy-please have your primary care doctor sent authorization to follow-up with scheduling clerk. [id number] [facility] [place] [address] Office Follow up with primary care physician in 1 week If you don't have one please let someone know, we can give you resources that may help you pick one. You may also call your insurance company to assign one to you. Review your medication list with your nurse before leaving and if you need new prescriptions please let your nurse know. I may have made changes to your home medications or given you new prescriptions, please let your primary doctor know as well. Stay compliant with your medications and report any side effects to your PCP or pharmacist. Return to the ER if you have any concerns and cannot reach your doctors or call your insurance company, they usually have a nurse that can help you. Call 911 or go to the nearest emergency room if experiencing loss of consciousness, dizziness, chest pain, shortness of breath, vomiting/abdominal pain, speech difficulties, motor weakness or any unusual symptoms. JEAN MARIE HERNANDEZ NP Oct 26, 2017 12:52
[2017-10-26] MEDS ORDERED: CEPASTAT LOZENGE MT PRN (13:00)
[2017-10-26] MEDS ORDERED: NATE120T12 PO (13:01)
[2017-10-26] MEDS ORDERED: CEPH500C PO (13:01)
[2017-10-26] MEDS ORDERED: PANT40TA3 PO (13:01)
[2017-10-26] MEDS ORDERED: ALOG12.52 PO (13:01)
--- NOTE | 2017-10-26 13:13 | DS ---
Date/Time of Note Date/Time of Note DATE: 10/26/17 TIME: 13:07 Discharge Summary Admission/Discharge Info Admit Date/Time Oct 23, 2017 at 08:36 Discharge Date/Time Discharge Diagnosis 62-year-old female transferred from outside hospital for abdominal pain and hematochezia who was found to have leukocytosis with acute cholecystitis and acute anemia. 1. Cholecystitis. S/P laparoscopic cholecystectomy 10/23/2017 2. Anemia, status post EGD with mild gastritis. No GI source of bleeding. Likely anemia is chronic. Recommended outpatient colonoscopy evaluation. 3. Acute kidney injury on chronic kidney disease. Renal function stabilized. 4. Diabetes mellitus type 2. A1c 7.4. On oral agents 5. Essential hypertension. 6. Dyslipidemia. 7. Morbid obesity with BMI 41.2. 8. Presumptive urinary tract infection based on UA. Treated. Patient Condition: Stable Consults Dr. Curry, surgery , gastroenterology Procedures 2016. Laparoscopic cholecystectomy. 10/25/2017. Endoscopy. Hospital Course This is a 62-year-old female, transferred from outside hospital for abdominal pain and hematochezia who was also noted with acute cholecystitis and anemia. Patient had surgery evaluation and on 10/23/2017, she had undergone laparoscopic cholecystectomy. Patient tolerated procedure well. Patient was also empirically treated for presumptive UTI based on UA. Her cultures were negative, although cultures were taken after patient received antibiotics. A repeat UA was showing clearing up of UTI. There was no further fevers and leukocytosis was resolving. In regards to anemia, patient was evaluated by gastroenterology and she had EGD on 10/25/2017 with the finding of mild esophagitis and gastritis. The recommendation was to continue Protonix. Patient's hemoglobin remained at baseline ranging 8.5-9.5. There was no further drop. She did not have any further nausea, vomiting, abdominal pain, hematochezia, hematemesis or melena. A stool OB also was negative. At this time, a colonoscopy is recommended as outpatient. Patient was also noted with acute kidney injury for which she had nephrology evaluation and renal function stabilized back to baseline. Patient was continued on home medication for underlying comorbid conditions. Patient was continued on antihypertensives and her blood pressure remained stable. Ideally, patient would benefit from guille inhibitors with diabetes and CKD-however, due to acute kidney injury, it was contraindicated per nephrology colleagues. Treating her diabetes was challenging as patient is not receptive for any insulin therapy as outpatient. She was noted with A1c 7.4. With careful coordination with early childhood special educator and insulin status, we were able to preauthorize patient for alogliptin and Starlix for diabetic management as outpatient. Please note that the patient is not a candidate for metformin or other agent secondary to her poor renal function. At this time, patient is feeling back to her baseline. She is ready for outpatient follow-up. Patient was recommended on weight reduction as she is also morbidly obese. Patient to follow-up with surgeon in 1 week. Please review detailed discharge instructions given to patient. Approximately 60 minutes was spent in coordinating the discharge on this patient. Patient is seen in collaboration with . Home Meds Active Scripts Cephalexin* (Keflex*) 500 Mg Capsule, 500 MG PO TID for 7 Days, CAP Prov:LINDA SMITH MD 10/21/17 Ibuprofen* (Ibuprofen*) 600 Mg Tablet, 600 MG PO Q8 for PAIN AND/OR INFLAMMATION , #30 TAB Prov:LINDA SMITH MD 10/21/17 Oxycodone HCl/Acetaminophen (Percocet 5-325 mg Tablet) 1 Each Tablet, 1 EACH PO TID for PAIN LEVEL 6-10, #12 TAB Prov:LINDA SMITH MD 10/21/17 Reported Medications [Glucosamine] No Conflict Check, 1 CAP PO NEEDED 10/21/17 Simvastatin* (Zocor*) 20 Mg Tablet, 20 MG PO QHS, #30 TAB 10/21/17 Omeprazole* (Omeprazole*) 20 Mg Capsule., 20 MG PO DAILY, #30 CAP 04/14/16 Clonidine Hcl* (Clonidine Hcl*) 0.1 Mg Tab, 0.1 MG PO TID, TAB 04/14/16 Discontinued Reported Medications Simvastatin* (Zocor*) 10 Mg Tablet, 10 MG PO QHS, #30 TAB 12/27/15 Amlodipine Besylate* (Amlodipine Besylate*) 10 Mg Tablet, 10 MG PO DAILY, #30 TAB 12/27/15 Discontinued Scripts Cephalexin* (Keflex*) 500 Mg Capsule, 500 MG PO QID for 7 Days, CAP Prov:DOUGLAS BELTRAN 04/15/16 Sulfamethoxazole-Trimethoprim* (Bactrim* DS) 800-160 Mg Tab, 1 TAB PO BID for 5 Days, TAB Prov:DOUGLAS BELTRAN 04/15/16 Follow-up Plan Follow-up with Dr. Curry in 1 week [address] [facility] [address] [place] [address] Office Post operative Instructions *Do not lift anything more than 25 pounds for 6 to 8 weeks *Do not swim or take hot tub bath for 2weeks *Remove dressing and May shower-Use mild soap around site and pat dry *If you notice any oozing, bleeding or other drainage or having fever or chills from site please contact Surgeon's office-If unable to get office, you may go to nearest emergency room. Follow-up with in 4 weeks-recommend outpatient colonoscopy-please have your primary care doctor sent authorization to follow-up with civil drafter. [address] [facility] [place] [address] Office Follow up with primary care physician in 1 week If you don't have one please let someone know, we can give you resources that may help you pick one. You may also call your insurance company to assign one to you. Review your medication list with your nurse before leaving and if you need new prescriptions please let your nurse know. I may have made changes to your home medications or given you new prescriptions, please let your primary doctor know as well. Stay compliant with your medications and report any side effects to your PCP or pharmacist. Return to the ER if you have any concerns and cannot reach your doctors or call your insurance company, they usually have a nurse that can help you. Call 911 or go to the nearest emergency room if experiencing loss of consciousness, dizziness, chest pain, shortness of breath, vomiting/abdominal pain, speech difficulties, motor weakness or any unusual symptoms. Primary Care Provider Care Physician No Primary Pending Labs Laboratory Tests Test 10/25/17 17:31 10/25/17 21:20 10/26/17 00:56 10/26/17 06:04 Bedside Glucose 211mg/dL (70-220) 169mg/dL (70-220) Hemoglobin 8.5g/dl (12.0-16.0) 8.4g/dl (12.0-16.0) Hematocrit 27.2% (37.0-47.0) 27.5% (37.0-47.0) White Blood Count 13.310^3/ul (4.8-10.8) Red Blood Count 2.9910^6/ul (4.20-5.40) Mean Corpuscular Volume 92.0fl (82.0-101.0) Mean Corpuscular Hemoglobin 28.1pg (29.0-33.0) Mean Corpuscular Hemoglobin Concent 30.5g/dl (32.0-37.0) Red Cell Distribution Width 16.0% (11.5-14.5) Platelet Count 93837^3/UL (140-415) Mean Platelet Volume 10.2fl (7.4-10.4) Neutrophils % 79.3% (39.0-77.0) Lymphocytes % 8.7% (15.0-51.0) Monocytes % 10.1% (0.0-11.0) Eosinophils % 0.0% (0.0-7.0) Basophils % 0.2% (0.0-2.0) Nucleated Red Blood Cells % 0.0/100WBC (0.0-0.0) Neutrophils # 10.610^3/ul (1.6-7.5) Lymphocytes # 1.210^3/ul (0.8-2.9) Monocytes # 1.310^3/ul (0.3-0.9) Eosinophils # 0.010^3/ul (0.0-0.5) Basophils # 0.010^3/ul (0.0-0.1) Nucleated Red Blood Cells # 0.010^3/ul (0.0-0.0) Sodium Level 142mmol/L (135-144) Potassium Level 3.8mmol/L (3.5-5.1) Chloride Level 113mmol/L (97-110) Carbon Dioxide Level 20mmol/L (21-31) Anion Gap 13 (8-16) Blood Urea Nitrogen 24mg/dl (7-20) Creatinine 1.26mg/dl (0.44-1.00) Glucose Level 133mg/dl (70-220) Calcium Level 8.4mg/dl (8.4-10.2) Test 10/26/17 08:11 10/26/17 09:00 10/26/17 11:33 10/26/17 12:00 Bedside Glucose 121mg/dL (70-220) 82mg/dL (70-220) Stool Occult Blood NEGATIVE (NEGATIVE) Hemoglobin 9.1g/dl (12.0-16.0) Hematocrit 28.8% (37.0-47.0) JEAN MARIE HERNANDEZ NP Oct 26, 2017 13:13
[2017-10-26 14:27] VITALS: BP 159/72; RESP 20
[2017-10-26 14:42] LABS: MICROALBUMIN 4.3 mg/dL
--- NOTE | 2017-10-26 15:13 | PN ---
Date/Time of Note Date/Time of Note DATE: 10/26/17 TIME: 15:06 Assessment/Plan VTE Prophylaxis VTE Prophylaxis Intervention: ambulation Lines/Catheters IV Catheter Type (from [facility]): Peripheral IV Urinary Cath still in place: No Assessment/Plan Chief Complaint/Hosp Course Assessment: GI bleed-no signs of overt bleeding S/p EGD 10/25/17 Impression: Mild distal esophagitis. Mild gastritis. Rule out H. pylori infection. Status post lap rosa 10/23/17 Oliguria after surgery Gastritis Hypertension Diabetes mellitus Arthritis Plan: Discharge orders are in. Continue monitoring H&H transfuse for hemoglobin less than 7.5 Patient needs colonoscopy down the road (follow-up was GI after discharge) Patient is seen by leases and land supervisor Continue omeprazole Regular diet as tolerated per surgical team Patient is seen in collaboration with Dr. Vasquez Subjective: Patient is feeling well, denies pain unless ambulating, she is eating regular diet. Renal function is improving , creatinine is trending down , seen by leases and land supervisor. GILBERT drain has been DC'd yesterday. Patient was examined and explained the results of procedure with the following treatment plan of treatment. Need for colonoscopy has been explained. All laboratory values have been reviewed. Treatment plan has been reviewed with nursing staff. PHYSICAL EXAMINATION: GENERAL: Well developed, morbidly obese , well nourished, alert & oriented x 3, in no acute distress SKIN: No lesions, no stigmata chronic liver disease, bruises and skin hyperpigmentation. Surgical scars covered by gauze LYMPHATIC: No palpable lymphadenopathy. HEAD: Normocephalic, atraumatic, no tenderness. EYES: Pupils equal reactive to light and accommodation, full extraocular movements, sclera clear, non-icteric, no discharge. EARS/NOSE AND THROAT: Ears normal, nose normal, oropharynx normal, oral membranes well hydrated without lesions. NECK: Supple, no masses, thyroid normal, JVP within normal limits, carotids normal without bruits. CHEST: Inspection within normal limits. CARDIOVASCULAR: Heart: Regular rate and rhythm, no murmurs, gallops or rubs. Peripheral pulses present within normal limits, no cyanosis, clubbing or edemas. No pulsatile abdominal mass RESPIRATORY: Lungs clear to auscultation and percussion, no wheezing, no rubs GASTROINTESTINAL AND LIVER: Abdomen: Soft, obese, non tenderness, non-distended , no hernias, no masses, no organomegaly, no ascites, no guarding, no rebound tenderness, normoactive bowel sounds. Rectal: Deferred. GENITOURINARY: Female genitalia within normal limits. EXTREMITIES: No cyanosis, clubbing or edema. Problems: Exam/Review of Systems Vital Signs Vitals Vital Signs Date Time Temp Pulse Resp B/P Pulse Ox O2 Delivery O2 Flow Rate FiO2 10/26/17 14:27 98.0 20 159/72 98 10/26/17 07:51 70 10/25/17 18:44 Room Air 10/23/17 16:46 3.0 Intake and Output 10/25/17 10/25/17 10/26/17 15:00 23:00 07:00 Intake Total 400 ml 750 ml 1000 ml Output Total 1000 ml Balance 400 ml -250 ml 1000 ml Results Result Diagram: 10/26/17 1133 10/26/17 0604 Results 24 hrs Laboratory Tests Test 10/25/17 17:31 10/25/17 21:20 10/26/17 00:56 10/26/17 06:04 Bedside Glucose 211 169 Hemoglobin 8.5 L 8.4 L Hematocrit 27.2 L 27.5 L White Blood Count 13.3 H Red Blood Count 2.99 L Mean Corpuscular Volume 92.0 Mean Corpuscular Hemoglobin 28.1 L Mean Corpuscular Hemoglobin Concent 30.5 L Red Cell Distribution Width 16.0 H Platelet Count 328 Mean Platelet Volume 10.2 Neutrophils % 79.3 H Lymphocytes % 8.7 L Monocytes % 10.1 Eosinophils % 0.0 Basophils % 0.2 Nucleated Red Blood Cells % 0.0 Neutrophils # 10.6 H Lymphocytes # 1.2 Monocytes # 1.3 H Eosinophils # 0.0 Basophils # 0.0 Nucleated Red Blood Cells # 0.0 Sodium Level 142 Potassium Level 3.8 Chloride Level 113 H Carbon Dioxide Level 20 L Anion Gap 13 Blood Urea Nitrogen 24 H Creatinine 1.26 H Glucose Level 133 # Calcium Level 8.4 Test 10/26/17 08:11 10/26/17 09:00 10/26/17 11:33 10/26/17 12:00 Bedside Glucose 121 82 Stool Occult Blood NEGATIVE Hemoglobin 9.1 L Hematocrit 28.8 L Medications Medications Current Medications Acetaminophen (Tylenol Tab) 650 mg Q6H PRN PO PAIN LEVEL 1-3 OR FEVER; Start 10/23/17 at 11:00 Acetaminophen/ Hydrocodone Bitart ([place] (5/325)) 1 tab Q6H PRN PO MODERATE PAIN LEVEL 4-6; Start 10/23/17 at 11:00 Pantoprazole (Protonix Iv) 40 mg DAILY@06 IV Last administered on 10/26/17 05 :19; Admin Dose 40 MG; Start 10/24/17 at 06:00 Atorvastatin Calcium (Lipitor) 10 mg QHS PO Last administered on 10/25/17 21: 04; Admin Dose 10 MG; Start 10/23/17 at 21:00 Oxycodone/ Acetaminophen (Percocet (5/ 325)) 1 tab Q4H PRN PO MILD PAIN (1-3); Start 10/23/17 at 16:00 Oxycodone/ Acetaminophen (Percocet (5/ 325)) 2 tab Q4H PRN PO MODERATE PAIN (4- 6); Start 10/23/17 at 16:00 Ondansetron HCl (Zofran Inj) 4 mg Q6H PRN IV NAUSEA; Start 10/23/17 at 16:00 Diagnostic Test (Pha) (Accu-Chek) 1 ea 02 XX ; Start 10/24/17 at 02:00 Miscellaneous Information 1 ea NOTE XX ; Start 10/23/17 at 21:00 Glucose (Glutose) 15 gm Q15M PRN PO DECREASED GLUCOSE; Start 10/23/17 at 21:00 Glucose (Glutose) 22.5 gm Q15M PRN PO DECREASED GLUCOSE; Start 10/23/17 at 21: 00 Dextrose (D50w Syringe) 25 ml Q15M PRN IV DECREASED GLUCOSE; Start 10/23/17 at 21:00 Dextrose (D50w Syringe) 50 ml Q15M PRN IV DECREASED GLUCOSE; Start 10/23/17 at 21:00 Glucagon (Glucagen) 1 mg Q15M PRN IM DECREASED GLUCOSE; Start 10/23/17 at 21: 00 Glucose (Glutose) 15 gm Q15M PRN BUCCAL DECREASED GLUCOSE; Start 10/23/17 at 21:00 Lisinopril (Zestril) 5 mg DAILY PO Last administered on 10/26/17 08:13; Admin Dose 5 MG; Start 10/24/17 at 12:30 Hydralazine HCl (Apresoline) 25 mg TID PO Last administered on 10/26/17 13:54 ; Admin Dose 25 MG; Start 10/26/17 at 02:30 Hydralazine HCl 10 mg 10 mg Q4H PRN IV SBP >160; Start 10/26/17 at 02:30 Piperacillin Sod/ Tazobactam Sod (Zosyn 2.25gm/ 50ml (Pmx)) 50 ml @ 100 mls/hr Q6 IVPB Last administered on 10/26/17 13:53; Admin Dose 100 MLS/HR; Start at 13:30 Phenol (Cepastat Lozenge) 1 lozenge Q1H PRN MT throat pain; Start 10/26/17 at 13:00 Copies To: CC: CESARIO VASQUEZ MD, ANASTASIA NP Oct 26, 2017 15:13
== END 2017-10-26 18:16 | disposition home or self-care (01) | DRG 418 ==
LOC: PP2 08:36
PROVIDERS: ADMIT Family Medicine; ATTEND Family Medicine
PROC: 0DNW4ZZ Release Peritoneum, Percutaneous Endoscopic Approach (ICD-10-PCS; 2017-10-23)
PROC: 0W9J30Z Drainage of Pelvic Cavity with Drainage Device, Percutaneous Approach (ICD-10-PCS; 2017-10-23)
PROC: 0FT44ZZ Resection of Gallbladder, Percutaneous Endoscopic Approach (ICD-10-PCS; principal; 2017-10-23 14:00)
PROC: 0DB68ZX Excision of Stomach, Via Natural or Artificial Opening Endoscopic, Diagnostic (ICD-10-PCS; 2017-10-25)
DX: K80.00 Calculus of gallbladder with acute cholecystitis without obstruction (principal); K92.1 Melena; E87.2 Acidosis; N17.9 Acute kidney failure, unspecified; N18.3 Chronic kidney disease, stage 3 (moderate); E87.1 Hypo-osmolality and hyponatremia; Z68.41 Body mass index [BMI] 40.0-44.9, adult; N39.0 Urinary tract infection, site not specified; I12.9 Hypertensive chronic kidney disease with stage 1 through stage 4 chronic kidney disease, or unspecified chronic kidney disease; E78.5 Hyperlipidemia, unspecified; R73.03 Prediabetes; E66.01 Morbid (severe) obesity due to excess calories; Z87.11 Personal history of peptic ulcer disease; M19.90 Unspecified osteoarthritis, unspecified site; K29.70 Gastritis, unspecified, without bleeding; K20.9 Esophagitis, unspecified; D64.9 Anemia, unspecified
CPT/HCPCS: 76775; 80048; 80053; 80061; 81001; 81003; 82043; 82270; 82962; 83036; 83605; 83735; 84100; 84155; 84300; 84439; 84443; 85014; 85018; 85025; 86803; 87081; 87086; 87340; 88304; 88305; C9113; J0360; J1100; J1170; J1815; J2250; J2370; J2543; J2710; J2765; J2795; J3010; J7030

== ENCOUNTER 2017-11-09 20:56 | Emergency (ER) | END 2017-11-10 05:36 | disposition home or self-care (01) ==

== ENCOUNTER 2017-11-28 23:29 | Inpatient (IN) | END 2017-12-16 18:38 | disposition home health service (06) | DRG 872 ==

== ENCOUNTER 2017-12-30 09:47 | Inpatient (IN) | END 2017-12-31 20:12 | disposition home health service (06) | DRG 872 ==

== ENCOUNTER 2018-05-26 10:41 | Day surgery (SDC) | END 2018-05-26 11:51 | disposition home or self-care (01) ==

== ENCOUNTER 2019-04-17 20:32 | Inpatient (IN) | payer MEDICARE, OTHER ==
[~2019-04-17] VITALS: Ht 144.8 cm; Wt 85.3 kg
[~2019-04-17 20:32] MED LIST changes: +ALOG12.52 PO; -CEPH-443 PO; +DOXY100T2 PO; +ESCI10TA48 PO; -GLUCOSAMINE PO; +HYDR-3601 PO; -IBUP-1542 PO; +LEVO50TA7 PO; +LOSA100T15 PO; +MEGE400O4 PO; +METO10TA3 PO; +NATE120T12 PO; -OMEP20CA16 PO; +ONDA4TAB14 PO; -OXYC-279 PO; +PANT40TA3 PO; +POLY17PO6 PO; -SUCCINYLCHOLINE CHLORIDE 100 MG/5 ML SYG IV ONE
[2019-04-17] MEDS ORDERED: morphine 4 MG/ML VIAL IV STA (21:37)
[2019-04-17] MEDS ORDERED: ONDANSETRON 4 MG INJ IV STA (21:37)
[2019-04-17] MEDS ORDERED: SOD CHLORIDE 0.9% 500 ML IV STA (21:37)
[2019-04-17] MEDS ORDERED: CEFTRIAXONE 1 GM/50 ML (PMX) 50 ML IVPB ONE (23:30)
[2019-04-18] MEDS ORDERED: ONDANSETRON 4 MG INJ IV PRN
[2019-04-18] MEDS ORDERED: FURO20TA3 PO (00:08)
[2019-04-18] MEDS ORDERED: ATOR40TA68 PO (00:10)
[2019-04-18] MEDS ORDERED: ATOR20TA38 PO (00:10)
--- NOTE | 2019-04-18 00:28 | ERD ---
ER Documentation Chief Complaint Chief Complaint vomiting/diarrhea/abd pain x 3 days HPI Is a 63-year-old female vomiting diarrhea abdominal pain for 3 days. She has had urgency frequency urination. No fevers no chills. No other current complaints. ROS All systems reviewed and are negative except as per history of present illness. Medications Home Meds Active Scripts Clonidine Hcl* (Clonidine Hcl*) 0.1 Mg Tab, 0.1 MG PO TID PRN for ELEVATED BLOOD PRESSURE for 30 Days, #90 TAB If SBP >170, take one tablet by mouth Prov:KAREN GARNER MD 12/31/17 Pantoprazole* (Protonix*) 40 Mg Tablet.dr, 40 MG PO BID, #60 TAB Prov:JEAN MARIE HERNANDEZ NP 10/26/17 Reported Medications Atorvastatin* (Atorvastatin*) 40 Mg Tablet, 40 MG PO QHS, #30 TAB 04/18/19 Atorvastatin Calcium* (Atorvastatin Calcium*) 20 Mg Tablet, 20 MG PO QHS, #30 TAB 04/18/19 Furosemide* (Furosemide*) 20 Mg Tablet, 20 MG PO BID for 30 Days, #60 04/18/19 Discontinued Reported Medications Simvastatin* (Zocor*) 20 Mg Tablet, 20 MG PO QHS, #30 TAB 10/21/17 Discontinued Scripts Megestrol Acetate (Megestrol Acetate) 400 Mg/10 Ml Oral.susp, 400 MG PO BID for 30 Days, #1 BOTTLE Prov:KAREN GARNER MD 12/31/17 Metoclopramide Hcl* (Metoclopramide Hcl*) 10 Mg Tablet, 10 MG PO Q8 for 30 Days, #90 TAB Prov:KAREN GARNER MD 12/31/17 Escitalopram Oxalate* (Escitalopram Oxalate*) 10 Mg Tablet, 20 MG PO DAILY for 30 Days, #30 TAB Prov:KAREN GARNER MD 12/31/17 Losartan Potassium* (Losartan Potassium*) 100 Mg Tablet, 100 MG PO DAILY for 30 Days, #30 TAB Prov:KAREN GARNER MD 12/31/17 Doxycycline* (Vibramycin*) 100 Mg Tab, 100 MG PO BID for 7 Days, #15 TAB Prov:KAREN GARNER MD 12/31/17 Hydrocodone Bit-Acetaminophen (Hydrocodone Bit-APAP) 5-325MG Tablet, 1 TAB PO Q6H PRN for MODERATE PAIN LEVEL 4-6 for 10 Days, #20 TAB Prov:KAREN GARNER MD 12/15/17 Levothyroxine Sodium* (Levothyroxine Sodium*) 50 Mcg Tablet, 50 MCG PO DAILY@06 for 30 Days, #30 TAB Prov:KAREN GARNER MD 12/15/17 Polyethylene Glycol* (Miralax*) 17 Gm Powd.pack, 8.5 GM PO DAILY for 30 Days, #30 PACKET Prov:KAREN GARNER MD 12/15/17 Ondansetron (Ondansetron Odt) 4 Mg Tab.rapdis, 4 MG PO Q6H PRN for NAUSEA AND/OR VOMITING, #10 TAB Prov:ARIK,HUGO 11/10/17 Nateglinide* (Starlix*) 120 Mg Tablet, 120 MG PO AC MEALS, #90 TAB Prov:HERNANDEZJEAN MARIE [employer] DIPPER 10/26/17 Alogliptin Benzoate (Alogliptin) 12.5 Mg Tablet, 12.5 MG PO DAILY, #30 TAB Prov:JEAN MARIE HERNANDEZ [employer] 10/26/17 Allergies Allergies: Coded Allergies: No Known Allergy (Unverified , 10/21/17) PMhx/Soc History of Surgery: Yes ( X2; CHOLECYSTECTOMY; RIGHT SHOULDER ) Anesthesia Reaction: No Hx Neurological Disorder: No Hx Respiratory Disorders: No Hx Cardiac Disorders: Yes (HTN; ANEMIA) Hx Psychiatric Problems: Yes (DEPRESSION) Hx Miscellaneous Medical Probl: No Hx Alcohol Use: No Hx Substance Use: No Hx Tobacco Use: No Smoking Status: Never smoker Physical Exam Vitals Vital Signs Date Temp Pulse Resp B/P (MAP) Pulse Ox O2 O2 Flow FiO2 Time Delivery Rate 04/17/19 60 20 169/74 100 Room Air 23:13 (105) 04/17/19 78 20 155/64 95 Room Air 21:37 (94) 04/17/19 98.9 84 18 184/88 98 20:37 (120) Physical Exam Const: No acute distress Head: Atraumatic Eyes: Normal Conjunctiva ENT: Normal External Ears, Nose and Mouth. Neck: Full range of motion. No meningismus. Resp: Clear to auscultation bilaterally Cardio: Regular rate and rhythm, no murmurs Abd: Soft, non tender, non distended. Normal bowel sounds Skin: No petechiae or rashes Back: No midline or flank tenderness Ext: No cyanosis, or edema Neur: Awake and alert Psych: Normal Mood and Affect Result Diagram: 04/17/19214904/17/192149 Results 24 hrs Laboratory Tests Test 04/17/19 21:50 White Blood Count 15.8 10^3/ul Red Blood Count 4.10 10^6/ul Hemoglobin 10.6 g/dl Hematocrit 34.5 % Mean Corpuscular Volume 84.1 fl Mean Corpuscular Hemoglobin 25.9 pg Mean Corpuscular Hemoglobin Concent 30.7 g/dl Red Cell Distribution Width 17.8 % Platelet Count 392 10^3/UL Mean Platelet Volume 9.3 fl Immature Granulocytes % 3.900 % Neutrophils % 73.0 % Lymphocytes % 15.7 % Monocytes % 5.7 % Eosinophils % 1.1 % Basophils % 0.6 % Nucleated Red Blood Cells % 0.0 /100WBC Immature Granulocytes # 0.620 10^3/ul Neutrophils # 11.5 10^3/ul Lymphocytes # 2.5 10^3/ul Monocytes # 0.9 10^3/ul Eosinophils # 0.2 10^3/ul Basophils # 0.1 10^3/ul Nucleated Red Blood Cells # 0.0 10^3/ul Urine Color YELLOW Urine Clarity CLOUDY Urine pH 5.0 Urine Specific [place] 1.010 Urine Ketones NEGATIVE mg/dL Urine Nitrite NEGATIVE mg/dL Urine Bilirubin NEGATIVE mg/dL Urine Urobilinogen NEGATIVE mg/dL Urine Leukocyte Esterase 3+ Dion/ul Urine Microscopic RBC 8 /HPF Urine Microscopic WBC 161 /HPF Urine Squamous Epithelial Cells MODERATE /HPF Urine Bacteria MANY /HPF Urine Hemoglobin 1+ mg/dL Urine Glucose NEGATIVE mg/dL Urine Total Protein 2+ mg/dl Sodium Level 132 mmol/L Potassium Level 3.8 mmol/L Chloride Level 100 mmol/L Carbon Dioxide Level 21 mmol/L Anion Gap 11 Blood Urea Nitrogen 14 mg/dl Creatinine 1.27 mg/dl Est Glomerular Filtrat Rate mL/min 42 mL/min Glucose Level 125 mg/dl Calcium Level 9.6 mg/dl Total Bilirubin 0.5 mg/dl Direct Bilirubin 0.00 mg/dl Indirect Bilirubin 0.5 mg/dl Aspartate Amino Transf (AST/SGOT) 17 IU/L Alanine Aminotransferase (ALT/SGPT) 16 IU/L Alkaline Phosphatase 125 IU/L Total Protein 6.9 g/dl Albumin 3.7 g/dl Globulin 3.20 g/dl Albumin/Globulin Ratio 1.15 Lipase 421 U/L Current Medications Medications Dose Sig/Lisbeth Start Time Status Last (Trade) Ordered Route PRN Stop Time Admin Dose Reason Admin Sodium 500 ml @ Q1H STAT 04/17/19 DC 04/17/19 Chloride 500 mls/hr IV 21:37 22:16 04/17/19 22:36 Morphine 4 mg ONCE STAT 04/17/19 DC 04/17/19 Sulfate IV 21:37 22:16 (morphine) 04/17/19 21:38 Ondansetron 4 mg ONCE STAT 04/17/19 DC 04/17/19 HCl (Zofran IV 21:37 22:15 Inj) 04/17/19 21:38 Ceftriaxone 50 ml @ ONCE ONCE 04/17/19 DC 04/17/19 Sodium 100 mls/hr IVPB 23:30 23:36 04/17/19 23:59 Ondansetron 4 mg BRIDGE ORDER 04/18/19 DC HCl (Zofran PRN IV 00:00 Inj) NAUSEA/VOMITI 04/18/19 00:11 NG 650 mg ER BRIDGE 04/18/19 DC Acetaminophen PRN PO 00:00 (Tylenol .MILD PAIN 04/18/19 00:11 Tab) 1-3 OR TEMP 50 ml @ Q12 IVPB 04/18/19 Meropenem/Sod 100 mls/hr 01:00 ium Chloride IV Flush 3 ml PER 04/18/19 (NS 3 ml) PROTOCOL IV 00:30 Ondansetron 4 mg Q6H PRN 04/18/19 HCl (Zofran IV 00:30 Inj) NAUSEA/VOMITI NG 650 mg Q6H PRN 04/18/19 Acetaminophen PO .PAIN 1-3 00:30 (Tylenol OR TEMP Tab) Docusate 100 mg Q12H PRN 04/18/19 Sodium PO 00:30 (Colace) .CONSTIPATION Bisacodyl 5 mg DAILY PRN 04/18/19 (Dulcolax) PO 00:30 .CONSTIPATION Heparin 5,000 unit Q8 SC 04/18/19 Sodium 00:30 (Porcine) (Heparin (5000 Units/1ml)) Clonidine 0.1 mg TID PRN 04/18/19 (Catapres) PO ELEVATED 00:30 BLOOD PRESSURE Procedures/MDM EKG: Rate/Rhythm: [Normal Sinus Rhythm] QRS, ST, T-waves: [No changes consistent w/ acute ischemia] Impression: [No evidence of ischemia or arrhythmia] Chest X-ray 1V Interpreted by me: Soft Tissue: No acute abnormalities Bones: No acute abnormalities Mediastinum/Cardiac Silhouette/Lungs: [No acute abnormalities] Medical decision making: This is a 63 female as well as early pyelonephritis. At this point she is clinically stable. Start antibiotics post urine culture. Patient be admitted to hospitalist service Departure Diagnosis: Primary Impression: Pyelonephritis Condition: Stable DOUGLAS BELTRAN Apr 18, 2019 00:28
[2019-04-18] MEDS ORDERED: BISACODYL (EC) 5 MG TAB PO PRN (00:30)
[2019-04-18] MEDS ORDERED: ACETAMINOPHEN 325 MG TAB PO PRN ×2 (00:30)
[2019-04-18] MEDS ORDERED: NACL 0.9% 3 ML SYG IV SCH (00:30)
[2019-04-18] MEDS ORDERED: DOCUSATE SODIUM 100 MG CAP PO PRN (00:30)
[2019-04-18] MEDS: MEROPENEM 1 GM/50ML(PMX) 50 ML IVPB SCH ×2 (00:38→08:28)
[2019-04-18] MEDS: HEPARIN 5,000 UNIT/1 ML VIAL SC SCH ×4 (00:38→21:06)
[2019-04-18 01:28] VITALS: Ht 144.8 cm; Wt 85.3 kg
[2019-04-18 01:49] VITALS: BP 148/71; PULSE 62; RESP 20
[2019-04-18 07:31] VITALS: BP 171/77; PULSE 76; RESP 20
--- NOTE | 2019-04-18 08:22 | HP ---
Date/Time of Note Date/Time of Note DATE: 04/18/19 TIME: 08:14 Assessment/Plan VTE Prophylaxis SCD applied (from Nsg): Yes Pharmacological prophylaxis: NA/contraindicated Pharm contraindication: low risk/ambulating Lines/Catheters IV Catheter Type (from Nrsg): Saline Lock Urinary Cath still in place: No Assessment/Plan Hospital Course This is a 63 female being admitted to the [facility] floor for: #1 urinary tract infection: This likely could be contributing to patient's underlying diarrhea and vomiting. 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 Will put the patient on meropenem test on previous sensitivities. Will await urine culture results. #2 Nausea and vomitting: possible gastroenteritis vs intestinal irritation from UTI: Patient did report symptoms of diarrhea and vomiting. She has not had any episodes since coming to the emergency department. Will check stool studies.. PRN Zofran. Will monitor closely. Diet as tolerated. #3 hypertension: PRN clonidine/hydralazine. #4 diabetes mellitus: We will check hemoglobin A1c, last one since 2018 was 5.0. #5 hyperlipidemia: Continue statin #6 history of urinary tract infection: Patient has a history of multidrug- resistant UTIs. Await urine culture results, will put on meropenem based on previous sensitivities. #7 DVT GI prophylaxis: SCDs, no GI prophylaxis indicated Further treatment strategy will be implemented as per the clinical course. Result Diagram: 04/17/19214904/17/192149 Results 24hrs Laboratory Tests Test 04/17/19 21:50 White Blood Count 15.8 #H Red Blood Count 4.10 #L Hemoglobin 10.6 L Hematocrit 34.5 L Mean Corpuscular Volume 84.1 Mean Corpuscular Hemoglobin 25.9 L Mean Corpuscular Hemoglobin Concent 30.7 L Red Cell Distribution Width 17.8 H Platelet Count 392 # Mean Platelet Volume 9.3 Immature Granulocytes % 3.900 H Neutrophils % 73.0 Lymphocytes % 15.7 Monocytes % 5.7 Eosinophils % 1.1 Basophils % 0.6 Nucleated Red Blood Cells % 0.0 Immature Granulocytes # 0.620 H Neutrophils # 11.5 H Lymphocytes # 2.5 Monocytes # 0.9 Eosinophils # 0.2 Basophils # 0.1 Nucleated Red Blood Cells # 0.0 Urine Color YELLOW Urine Clarity CLOUDY A Urine pH 5.0 Urine Specific [place] 1.010 Urine Ketones NEGATIVE Urine Nitrite NEGATIVE Urine Bilirubin NEGATIVE Urine Urobilinogen NEGATIVE Urine Leukocyte Esterase 3+ H Urine Microscopic RBC 8 H Urine Microscopic WBC 161 H Urine Squamous Epithelial Cells MODERATE Urine Bacteria MANY A Urine Hemoglobin 1+ H Urine Glucose NEGATIVE Urine Total Protein 2+ H Sodium Level 132 L Potassium Level 3.8 Chloride Level 100 Carbon Dioxide Level 21 Anion Gap 11 Blood Urea Nitrogen 14 Creatinine 1.27 H Est Glomerular Filtrat Rate mL/min 42 L Glucose Level 125 Calcium Level 9.6 Total Bilirubin 0.5 Direct Bilirubin 0.00 Indirect Bilirubin 0.5 Aspartate Amino Transf (AST/SGOT) 17 Alanine Aminotransferase (ALT/SGPT) 16 Alkaline Phosphatase 125 H Total Protein 6.9 Albumin 3.7 Globulin 3.20 Albumin/Globulin Ratio 1.15 Lipase 421 H HPI/ROS Admit Date/Time Admit Date/Time Apr 17, 2019 at 23:44 Hx of Present Illness Chief complaint: Vomiting, diarrhea, This is a 63-year-old female who presented to the emergency department complaining of diarrhea and vomiting. Family presents with the patient at the bedside. Family and patient states that the patient has been expensing diarrhea and vomiting for the last few days. Patient is also been expressing chills but denies any fevers. She has had difficulty keeping her p.o. solid foods down but she is able to tolerate liquids. She denies any urinary incontinence or dysuria. Denies eating any foul tasting or undercooked food. Denies any fevers. Allergies: NKDA Medications: See MAR ROS Const: As per HPI Eyes : No pain discharge or redness or change in visual acuity ENT: No pain, sore throat, congestion, congestion, dysphagia or discharge Respiratory: No shortness of breath, cough, sputum, wheezing, or pleuritic pain Cardiovascular: No chest pain, palpitation, PND, or edema GI : As per HPI Genitourinary: As per HPI Musculoskeletal: No joint pain, back pain, neck pain, restricted range of motion in neck or joints Skin: No rash, bruising or hives Neuro: No headache, dizziness, syncope, seizure, focal weakness Endocrine: No polyuria, polydipsia, temperature intolerance Psych: No hallucination, depression, anxiety or suicidal ideation PMH/Family/Social Past Medical History Hypertension, diabetes mellitus, hyperlipidemia, history of UTI Medications Current Medications Meropenem/Sodium Chloride 50 ml @ 100 mls/hr Q12 IVPB Last administered on 04/18/19at 00:38; Admin Dose 100 MLS/HR; Start 04/18/19 at 01:00 IV Flush (NS 3 ml) 3 ml PER PROTOCOL IV ; Start 04/18/19 at 00:30 Ondansetron HCl (Zofran Inj) 4 mg Q6H PRN IV NAUSEA/VOMITING; Start 04/18/19 at 00:30 Acetaminophen (Tylenol Tab) 650 mg Q6H PRN PO .PAIN 1-3 OR TEMP; Start 04/18/19 at 00:30 Docusate Sodium (Colace) 100 mg Q12H PRN PO .CONSTIPATION; Start 04/18/19 at 00:30 Bisacodyl (Dulcolax) 5 mg DAILY PRN PO .CONSTIPATION; Start 04/18/19 at 00:30 Heparin Sodium (Porcine) (Heparin (5000 Units/1ml)) 5,000 unit Q8 SC Last administered on 04/18/19at 05:59; Admin Dose 5,000 UNIT; Start 04/18/19 at 00:30 Clonidine (Catapres) 0.1 mg TID PRN PO ELEVATED BLOOD PRESSURE; Start 04/18/19 at 00:30 Coded Allergies: No Known Allergy (Unverified , 10/21/17) Past Surgical History Past Surgical Hx: cholecystectomy, endoscopy, other Family History Significant Family History: no pertinent family hx Social History Smoking Status: Former smoker Exam/Review of Systems Vital Signs Vitals Vital Signs Date Temp Pulse Resp B/P (MAP) Pulse Ox O2 O2 Flow FiO2 Time Delivery Rate 04/18/19 97.6 76 20 171/77 99 Room Air 07:31 (108) Intake and Output 04/17/19 04/17/19 04/18/19 1515:00 23:00 07:00 IntakeIntake Total 290 ml BalanceBalance 290 ml Exam Exam General: Patient is a pleasant female currently lying in bed in no acute distress, she does appear slightly lethargic HEENT: Atraumatic, normocephalic. The pupils are equal, round and reactive. Extraocular motor are intact Neck: Supple with full range of motion. No rigidity or meningismus Chest: Nontender Lungs: Clear to auscultation bilaterally no crackles rales or wheezing Heart: Normal S1-S2, Regular rhythm and rate. No murmur, S3, or S4 Abdomen: Soft, mild tenderness provisional suprapubic area, normal bowel sounds, no rebound or guarding Extremities: Normal to inspection, no edema no cyanosis Neurologic: Normal mental status, speech normal, cranial nerves II through XII are intact, motor and sensory are intact, Additional Comments PROCEDURE: CT Abdomen and Pelvis Without Intravenous Contrast CLINICAL INDICATION: Abdominal pain. TECHNIQUE: Axial computed tomography images of the abdomen and pelvis without intravenous contrast. Sagittal and coronal reformatted images were created and reviewed. CTDIvol (mGy) = 20.79; total DLP (mGy-cm) = 1263.15. This CT exam was performed using one or more of the following dose reduction techniques: automated exposure control, adjustment of the mA and/or kV according to patient size, and/or use of iterative reconstruction technique. DICOM images are available. COMPARISON: None FINDINGS: LUNG BASES: Unremarkable. No mass. No consolidation. ABDOMEN: LIVER: Unremarkable. GALLBLADDER AND BILE DUCTS: The gallbladder is surgically absent. No biliary dilatation. PANCREAS: Unremarkable. No ductal dilation. SPLEEN: Unremarkable. No splenomegaly. ADRENALS: Unremarkable. No mass. KIDNEYS AND URETERS: Severe atrophy of the right kidney. Left kidney demonstrates normal cortical thickness. Parapelvic cysts left kidney measuring up to 1.8 cm. No nephrolithiasis. No hydronephrosis. The bilateral ureters are unremarkable. STOMACH AND BOWEL: Mild diverticulosis of the colon. No findings of acute diverticulitis. No obstruction. PELVIS: APPENDIX: No findings to suggest acute appendicitis. BLADDER: Unremarkable. No stones. REPRODUCTIVE: Unremarkable as visualized. ABDOMEN and PELVIS: INTRAPERITONEAL SPACE: Unremarkable. No free air. No significant fluid collection. BONES/JOINTS: Diffuse degenerative lumbar spine changes are noted. No acute fracture. No dislocation. SOFT TISSUES: Calcified buttock granulomata. VASCULATURE: Unremarkable. LYMPH NODES: Unremarkable. No enlarged lymph nodes. IMPRESSION: 1. Severe atrophy of the right kidney. No hydronephrosis. 2. Mild diverticulosis of the colon. No findings of acute diverticulitis. 3. No acute abnormality demonstrated in the abdomen and pelvis. RPTAT: [facility] Byron Dodd Physician Video Control Engineer Date Time Electronically viewed and signed by Byron Dodd Physician Video Control Engineer on 04/17/2019 22:35 RmC/ CC: DOUGLAS BELTRAN [id number] PROCEDURE: XR Chest, 1 View CLINICAL INDICATION: Pain. TECHNIQUE: Frontal view of the chest. COMPARISON: 12/30/2013 FINDINGS: LUNGS: No consolidative pulmonary infiltrates noted. PLEURAL SPACE: Unremarkable. No pneumothorax. HEART: Unremarkable. No cardiomegaly. MEDIASTINUM: Unremarkable. BONES/JOINTS: Degenerative changes of the thoracic spine are noted. VASCULATURE: The thoracic aorta is tortuous and atherosclerotic. IMPRESSION: 1. No acute cardiopulmonary disease demonstrated. 2. There is no significant interval change from the previous study. RPTAT: [facility] Byron Dodd Physician Video Control Engineer Date Time Electronically viewed and signed by Byron Dodd Physician Video Control Engineer on 04/17/2019 22:47 RmC/ CC: DOUGLAS BELTRAN [id number] ELDER TRAN Apr 18, 2019 08:22
[2019-04-18] MEDS: PANTOPRAZOLE (EC) 40 MG TAB PO SCH ×2 (08:28→17:31)
[2019-04-18] MEDS ORDERED: hydrALAzine 20 MG INJ IV PRN (08:30)
[2019-04-18 09:32] VITALS: BP 150/67; PULSE 75
--- NOTE | 2019-04-18 14:04 | PN ---
Date/Time of Note Date/Time of Note DATE: 04/18/19 TIME: 13:59 Assessment/Plan VTE Prophylaxis SCD applied (from Nsg): Yes Pharmacological prophylaxis: NA/contraindicated Pharm contraindication: low risk/ambulating Lines/Catheters IV Catheter Type (from Nrsg): Saline Lock Urinary Cath still in place: No Assessment/Plan Assessment/Plan Morbidly obese 63 yo woman presents with nausea and diarrhea #Nausea #Diarrhea - Likely acute gastroenteritis, could be viral or bacterial preformed toxin. - Symptoms now resolving, patient tolerating diet. #UTI? - Apparently in ED patient reports urinary urgency, but she denies this to me. No dysuria or other urinary symptoms. - Mild leukocytosis on admission, otherwise no evidence of sepsis - Certainly no pyelo on exam or CT. - Will hold antibiotics, follow up on prelim urine culture results. # hypertension: PRN clonidine/hydralazine. # diabetes mellitus: hemoglobin A1c 6.1, last one since 2018 was 5.0. # hyperlipidemia: Continue statin # DVT GI prophylaxis: SCDs, no GI prophylaxis indicated Dispo: Anticipate discharge tomorrow Result Diagram: 04/18/19 0833 04/18/19 0833 Subjective 24 Hr Interval Summary Free Text/Dictation No acute overnight events. Diarrhea and nausea have resolved. Patient is tolerating diet. She feels too fatigued to walk around yet, and is worried about her chronic knee pain. Exam/Review of Systems Exam Vitals Vital Signs Date Temp Pulse Resp B/P (MAP) Pulse Ox O2 O2 Flow FiO2 Time Delivery Rate 04/18/19 75 150/67 09:32 (94) 04/18/19 97.6 20 99 Room Air 07:31 Intake and Output 04/17/19 04/17/19 04/18/19 1515:00 23:00 07:00 IntakeIntake Total 290 ml BalanceBalance 290 ml Exam General: Morbidly obese woman currently lying in bed in no acute distress, she does appear slightly lethargic HEENT: Atraumatic, normocephalic. The pupils are equal, round and reactive. Extraocular motor are intact Neck: Supple with full range of motion. No rigidity or meningismus Chest: Nontender Lungs: Clear to auscultation bilaterally no crackles rales or wheezing Heart: Normal S1-S2, Regular rhythm and rate. No murmur, S3, or S4 Abdomen: Soft, mild tenderness provisional suprapubic area, normal bowel sounds, no rebound or guarding Extremities: Normal to inspection, no edema no cyanosis Results Results 24hrs Laboratory Tests Test 04/17/19 21:50 04/18/19 08:33 White Blood Count 15.8 #H 13.5 H Red Blood Count 4.10 #L 3.88 L Hemoglobin 10.6 L 9.9 L Hematocrit 34.5 L 33.1 L Mean Corpuscular Volume 84.1 85.3 Mean Corpuscular Hemoglobin 25.9 L 25.5 L Mean Corpuscular Hemoglobin Concent 30.7 L 29.9 L Red Cell Distribution Width 17.8 H 17.9 H Platelet Count 392 # 360 Mean Platelet Volume 9.3 9.5 Immature Granulocytes % 3.900 H 3.800 H Neutrophils % 73.0 74.0 Lymphocytes % 15.7 13.9 L Monocytes % 5.7 5.9 Eosinophils % 1.1 1.7 Basophils % 0.6 0.7 Nucleated Red Blood Cells % 0.0 0.0 Immature Granulocytes # 0.620 H 0.510 H Neutrophils # 11.5 H 10.0 H Lymphocytes # 2.5 1.9 Monocytes # 0.9 0.8 Eosinophils # 0.2 0.2 Basophils # 0.1 0.1 Nucleated Red Blood Cells # 0.0 0.0 Urine Color YELLOW Urine Clarity CLOUDY A Urine pH 5.0 Urine Specific [place] 1.010 Urine Ketones NEGATIVE Urine Nitrite NEGATIVE Urine Bilirubin NEGATIVE Urine Urobilinogen NEGATIVE Urine Leukocyte Esterase 3+ H Urine Microscopic RBC 8 H Urine Microscopic WBC 161 H Urine Squamous Epithelial Cells MODERATE Urine Bacteria MANY A Urine Hemoglobin 1+ H Urine Glucose NEGATIVE Urine Total Protein 2+ H Sodium Level 132 L 137 Potassium Level 3.8 4.3 Chloride Level 100 106 Carbon Dioxide Level 21 24 Anion Gap 11 7 Blood Urea Nitrogen 14 13 Creatinine 1.27 H 1.12 H Est Glomerular Filtrat Rate mL/min 42 L 49 L Glucose Level 125 101 Calcium Level 9.6 9.3 Total Bilirubin 0.5 Direct Bilirubin 0.00 Indirect Bilirubin 0.5 Aspartate Amino Transf (AST/SGOT) 17 Alanine Aminotransferase (ALT/SGPT) 16 Alkaline Phosphatase 125 H Total Protein 6.9 Albumin 3.7 Globulin 3.20 Albumin/Globulin Ratio 1.15 Lipase 421 H Hemoglobin A1c 6.1 H Magnesium Level 1.7 Triglycerides Level 253 H Cholesterol Level 152 LDL Cholesterol, Calculated 66 HDL Cholesterol 35 Cholesterol/HDL Ratio 4.3 Thyroid Stimulating Hormone (TSH) 3.320 Medications Medication Current Medications Meropenem/Sodium Chloride 50 ml @ 100 mls/hr Q12 IVPB Last administered on 04/18/19at 08:28; Admin Dose 100 MLS/HR; Start 04/18/19 at 01:00 IV Flush (NS 3 ml) 3 ml PER PROTOCOL IV ; Start 04/18/19 at 00:30 Ondansetron HCl (Zofran Inj) 4 mg Q6H PRN IV NAUSEA/VOMITING; Start 04/18/19 at 00:30 Acetaminophen (Tylenol Tab) 650 mg Q6H PRN PO .PAIN 1-3 OR TEMP; Start 04/18/19 at 00:30 Docusate Sodium (Colace) 100 mg Q12H PRN PO .CONSTIPATION; Start 04/18/19 at 00:30 Bisacodyl (Dulcolax) 5 mg DAILY PRN PO .CONSTIPATION; Start 04/18/19 at 00:30 Heparin Sodium (Porcine) (Heparin (5000 Units/1ml)) 5,000 unit Q8 SC Last administered on 04/18/19at 05:59; Admin Dose 5,000 UNIT; Start 04/18/19 at 00:30 Clonidine (Catapres) 0.1 mg TID PRN PO ELEVATED BLOOD PRESSURE; Start 04/18/19 at 00:30 Atorvastatin Calcium (Lipitor) 40 mg QHS PO ; Start 04/18/19 at 21:00 Pantoprazole (Protonix Tab) 40 mg BID@0600,1800 PO Last administered on 04/18/19at 08:28; Admin Dose 40 MG; Start 04/18/19 at 08:30 Hydralazine HCl (Apresoline) 10 mg Q4H PRN IV SBP ABOVE 170; Start 04/18/19 at 08:30 NOEMÍ TAPIA MD Apr 18, 2019 14:04
[2019-04-18 14:32] VITALS: BP 136/65; RESP 18
--- NOTE | 2019-04-18 15:46 | CONS ---
DATE OF ADMISSION: 04/17/2019 DATE OF CONSULTATION: 04/18/2019 TYPE OF CONSULTATION: Infectious disease. REASON FOR CONSULTATION: Antibiotic management. HISTORY OF PRESENT ILLNESS: Linsey Lott is a 63-year-old female who comes in with vomiting and d iarrhea and abdominal pain for 3 days. She also had urgency or frequency on urination, but has no fe nina or chills. PAST MEDICAL HISTORY: Includes C-sections x2, cholecystectomy and right shoulder surgery. She has a history of hypertension, anemia and depression. FAMILY HISTORY: Noncontributory. SOCIAL HISTORY: She does not smoke, drink or abuse drugs. ALLERGIES: NONE TO PENICILLIN, SULFA OR FOODS. MEDICATIONS: Per chart. REVIEW OF SYSTEMS: As per HPI. PHYSICAL EXAMINATION: GENERAL: The patient is well-developed, well-nourished female who is in no acute distress. VITAL SIGNS: Stable. She is afebrile. SKIN: Without generalized rash. HEENT: Within normal limits. NECK: Supple. LYMPH NODES: None palpable. CHEST: Decreased breath sounds at the bases. HEART: Without murmur or gallop. ABDOMEN: Soft, nontender without organosplenomegaly or masses. EXTREMITIES: Without cyanosis, clubbing or edema. RECTAL AND GENITAL: Deferred. NEUROLOGIC: No focal neurological abnormalities. ANCILLARY LABORATORY DATA: White count of 15.8 with 73% neutrophils, H and H of 10.6 and 34.5, plate let count 392,000. BUN and creatinine is 14/1.27. Urine shows 3+ leukocyte esterase, 161 white cell s per high powered field. HOSPITAL COURSE: The patient was begun on ceftriaxone. Chest x-ray is negative. The patient was th ought to have early pyelonephritis. She has underlying diarrhea and vomiting which could have contri buted to urinary tract infection. She has a history of multidrug resistance in the past, so the vicente ent will be placed on meropenem. We will await urine culture results. Possible gastroenteritis, hyp ertension, diabetes, hyperlipidemia, history of UTIs in the past and DVT prophylaxis. I will dictate my findings to the hospitalist. The white count, as noted, was quite elevated at 15.8 and today is down to 13.5. She was started on meropenem. Dictated By: TOMMY MARTINEZ MD, JD/DAYA Conf#: [id number] [facility]#: [id number] CC: ELDER TRAN MD; NOEMÍ TAPIA MD;*[facility]*
[2019-04-18 19:34] VITALS: BP 136/65; PULSE 75; RESP 18
[2019-04-18] MEDS: ATORVASTATIN 40 MG TAB PO SCH (21:04)
[2019-04-18] MEDS: ONDANSETRON 4 MG INJ IV PRN (21:45)
[2019-04-19 01:25] VITALS: BP 143/67; PULSE 78; RESP 18
[2019-04-19] MEDS: PANTOPRAZOLE (EC) 40 MG TAB PO SCH ×2 (05:32→17:11)
[2019-04-19] MEDS: HEPARIN 5,000 UNIT/1 ML VIAL SC SCH ×3 (05:33→20:32)
[2019-04-19 07:18] VITALS: BP 143/70; PULSE 75; RESP 18
--- NOTE | 2019-04-19 12:26 | PN ---
Date/Time of Note Date/Time of Note DATE: 04/19/19 TIME: 12:24 Assessment/Plan VTE Prophylaxis Risk score (from Nsg)>0 risk: 3 SCD applied (from Nsg): Yes Pharmacological prophylaxis: NA/contraindicated Pharm contraindication: low risk/ambulating Lines/Catheters IV Catheter Type (from Nrsg): Saline Lock Urinary Cath still in place: No Assessment/Plan Assessment/Plan Morbidly obese 63 yo woman presents with nausea and diarrhea #Nausea #Diarrhea - Likely acute gastroenteritis, could be viral or bacterial preformed toxin. - Symptoms now resolving, patient tolerating diet. #UTI - Apparently in ED patient reports urinary urgency, but she denies this to me. She does have foul smelling urine - Certainly no pyelo on exam or CT. - Continue meropenem per ID recommendations until urine culture results. # hypertension: PRN clonidine/hydralazine. # diabetes mellitus: hemoglobin A1c 6.1, last one since 2018 was 5.0. # hyperlipidemia: Continue statin # DVT GI prophylaxis: SCDs, no GI prophylaxis indicated Dispo: Pending urine culture results. Result Diagram: 04/19/19 0427 04/19/19 042 Subjective 24 Hr Interval Summary Free Text/Dictation No acute overnight events. She has foul-smelling urine. Diarrhea, nausea has resolved. Appetite slowly returning. Exam/Review of Systems Exam Vitals Vital Signs Date Temp Pulse Resp B/P (MAP) Pulse Ox O2 O2 Flow FiO2 Time Delivery Rate 04/19/19 98.3 75 18 143/70 99 Room Air 07:18 (94) Intake and Output 04/18/19 04/18/19 04/19/19 1515:00 23:00 07:00 IntakeIntake Total 440 ml 640 ml BalanceBalance 440 ml 640 ml Exam General: Morbidly obese woman currently sitting in chair in no acute distress, awake and alert HEENT: Atraumatic, normocephalic. The pupils are equal, round and reactive. Extraocular motor are intact Neck: Supple with full range of motion. No rigidity or meningismus Chest: Nontender Lungs: Clear to auscultation bilaterally no crackles rales or wheezing Heart: Normal S1-S2, Regular rhythm and rate. No murmur, S3, or S4 Abdomen: Soft, mild tenderness provisional suprapubic area, normal bowel sounds, no rebound or guarding Extremities: Normal to inspection, no edema no cyanosis Results Results 24hrs Laboratory Tests Test 04/19/19 04:27 White Blood Count 13.5 H Red Blood Count 3.91 L Hemoglobin 10.1 L Hematocrit 33.5 L Mean Corpuscular Volume 85.7 Mean Corpuscular Hemoglobin 25.8 L Mean Corpuscular Hemoglobin Concent 30.1 L Red Cell Distribution Width 18.0 H Platelet Count 399 Mean Platelet Volume 9.9 Immature Granulocytes % 4.700 H Neutrophils % 78.3 H Lymphocytes % 8.2 L Monocytes % 5.3 Eosinophils % 2.7 Basophils % 0.8 Nucleated Red Blood Cells % 0.0 Immature Granulocytes # 0.640 H Neutrophils # 10.6 H Lymphocytes # 1.1 Monocytes # 0.7 Eosinophils # 0.4 Basophils # 0.1 Nucleated Red Blood Cells # 0.0 Sodium Level 140 Potassium Level 4.0 Chloride Level 110 Carbon Dioxide Level 23 Anion Gap 7 Blood Urea Nitrogen 12 Creatinine 1.19 H Est Glomerular Filtrat Rate mL/min 46 L Glucose Level 113 Calcium Level 8.9 Total Bilirubin 0.4 Direct Bilirubin 0.00 Indirect Bilirubin 0.4 Aspartate Amino Transf (AST/SGOT) 13 L Alanine Aminotransferase (ALT/SGPT) 19 Alkaline Phosphatase 111 Total Protein 6.1 Albumin 3.1 L Globulin 3.00 Albumin/Globulin Ratio 1.03 Medications Medication Current Medications Meropenem/Sodium Chloride 50 ml @ 100 mls/hr Q12 IVPB Last administered on 04/18/19at 08:28; Admin Dose 100 MLS/HR; Start 04/18/19 at 01:00 IV Flush (NS 3 ml) 3 ml PER PROTOCOL IV ; Start 04/18/19 at 00:30 Ondansetron HCl (Zofran Inj) 4 mg Q6H PRN IV NAUSEA/VOMITING Last administered on 04/18/19at 21:45; Admin Dose 4 MG; Start 04/18/19 at 00:30 Acetaminophen (Tylenol Tab) 650 mg Q6H PRN PO .PAIN 1-3 OR TEMP; Start 04/18/19 at 00:30 Docusate Sodium (Colace) 100 mg Q12H PRN PO .CONSTIPATION; Start 04/18/19 at 00:30 Bisacodyl (Dulcolax) 5 mg DAILY PRN PO .CONSTIPATION; Start 04/18/19 at 00:30 Heparin Sodium (Porcine) (Heparin (5000 Units/1ml)) 5,000 unit Q8 SC Last administered on 04/19/19at 05:33; Admin Dose 5,000 UNIT; Start 04/18/19 at 00:30 Clonidine (Catapres) 0.1 mg TID PRN PO ELEVATED BLOOD PRESSURE; Start 04/18/19 at 00:30 Atorvastatin Calcium (Lipitor) 40 mg QHS PO Last administered on 04/18/19at 21:04; Admin Dose 40 MG; Start 04/18/19 at 21:00 Pantoprazole (Protonix Tab) 40 mg BID@0600,1800 PO Last administered on 04/19/19at 05:32; Admin Dose 40 MG; Start 04/18/19 at 08:30 Hydralazine HCl (Apresoline) 10 mg Q4H PRN IV SBP ABOVE 170; Start 04/18/19 at 08:30 NOEMÍ TAPIA MD Apr 19, 2019 12:26
--- NOTE | 2019-04-19 14:02 | CONS ---
Assessment/Plan Assessment/Plan Hospital Course (Demo Recall) Patient is alert sitting up in a chair denies pain no nausea vomiting diarrhea no dysuria urine culture growing gram-negative rods WBC today 13.5 neutrophils 78.3 BUN 12 creatinine 1.19 Antimicrobials: Merrem Physical examination: Obese well-developed elderly woman who is awake in no distress. Head atraumatic normocephalic sclera nonicteric vehicle mucosa dry neck is obese chest rise symmetrical breath sounds diminished bases heart S1-S2 abdomen soft bowel sounds present extremities without cyanosis Assessment: 1. Recurrent UTI 2. Morbid obesity 3. Diabetes 4. Hypertension Plan: Patient remains stable, overall improved, will await for final culture Consultation Date/Type/Reason Admit Date/Time Apr 17, 2019 at 23:44 Initial Consult Date Type of Consult id Date/Time of Note DATE: 04/19/19 TIME: 14:02 Exam/Review of Systems Exam Vitals Vital Signs Date Temp Pulse Resp B/P (MAP) Pulse Ox O2 O2 Flow FiO2 Time Delivery Rate 04/19/19 98.3 75 18 143/70 99 Room Air 07:18 (94) Intake and Output 04/18/19 04/18/19 04/19/19 1515:00 23:00 07:00 IntakeIntake Total 440 ml 640 ml BalanceBalance 440 ml 640 ml Results Result Diagram: 04/19/197 04/19/19 0427 Results 24hrs Laboratory Tests Test 04/19/19 04:27 White Blood Count 13.5 H Red Blood Count 3.91 L Hemoglobin 10.1 L Hematocrit 33.5 L Mean Corpuscular Volume 85.7 Mean Corpuscular Hemoglobin 25.8 L Mean Corpuscular Hemoglobin Concent 30.1 L Red Cell Distribution Width 18.0 H Platelet Count 399 Mean Platelet Volume 9.9 Immature Granulocytes % 4.700 H Neutrophils % 78.3 H Lymphocytes % 8.2 L Monocytes % 5.3 Eosinophils % 2.7 Basophils % 0.8 Nucleated Red Blood Cells % 0.0 Immature Granulocytes # 0.640 H Neutrophils # 10.6 H Lymphocytes # 1.1 Monocytes # 0.7 Eosinophils # 0.4 Basophils # 0.1 Nucleated Red Blood Cells # 0.0 Sodium Level 140 Potassium Level 4.0 Chloride Level 110 Carbon Dioxide Level 23 Anion Gap 7 Blood Urea Nitrogen 12 Creatinine 1.19 H Est Glomerular Filtrat Rate mL/min 46 L Glucose Level 113 Calcium Level 8.9 Total Bilirubin 0.4 Direct Bilirubin 0.00 Indirect Bilirubin 0.4 Aspartate Amino Transf (AST/SGOT) 13 L Alanine Aminotransferase (ALT/SGPT) 19 Alkaline Phosphatase 111 Total Protein 6.1 Albumin 3.1 L Globulin 3.00 Albumin/Globulin Ratio 1.03 Medications Medication Current Medications Meropenem/Sodium Chloride 50 ml @ 100 mls/hr Q12 IVPB Last administered on 04/18/19at 08:28; Admin Dose 100 MLS/HR; Start 04/18/19 at 01:00 IV Flush (NS 3 ml) 3 ml PER PROTOCOL IV ; Start 04/18/19 at 00:30 Ondansetron HCl (Zofran Inj) 4 mg Q6H PRN IV NAUSEA/VOMITING Last administered on 04/18/19at 21:45; Admin Dose 4 MG; Start 04/18/19 at 00:30 Acetaminophen (Tylenol Tab) 650 mg Q6H PRN PO .PAIN 1-3 OR TEMP; Start 04/18/19 at 00:30 Docusate Sodium (Colace) 100 mg Q12H PRN PO .CONSTIPATION; Start 04/18/19 at 0 0:30 Bisacodyl (Dulcolax) 5 mg DAILY PRN PO .CONSTIPATION; Start 04/18/19 at 00:30 Heparin Sodium (Porcine) (Heparin (5000 Units/1ml)) 5,000 unit Q8 SC Last administered on 04/19/19at 05:33; Admin Dose 5,000 UNIT; Start 04/18/19 at 00:30 Clonidine (Catapres) 0.1 mg TID PRN PO ELEVATED BLOOD PRESSURE; Start 04/18/19 at 00:30 Atorvastatin Calcium (Lipitor) 40 mg QHS PO Last administered on 04/18/19at 21:04; Admin Dose 40 MG; Start 04/18/19 at 21:00 Pantoprazole (Protonix Tab) 40 mg BID@0600,1800 PO Last administered on 04/19/19at 05:32; Admin Dose 40 MG; Start 04/18/19 at 08:30 Hydralazine HCl (Apresoline) 10 mg Q4H PRN IV SBP ABOVE 170; Start 04/18/19 at 08:30 ANA MARIA ZULETA NP Apr 19, 2019 14:02
[2019-04-19 15:40] VITALS: BP 125/66; PULSE 71; RESP 20
[2019-04-19 19:20] VITALS: BP 165/70; PULSE 75; RESP 20
[2019-04-19] MEDS: MEROPENEM 1 GM/50ML(PMX) 50 ML IVPB SCH (20:25)
[2019-04-19] MEDS: ATORVASTATIN 40 MG TAB PO SCH (20:35)
[2019-04-19 22:00] VITALS: BP 155/70; PULSE 68
[2019-04-20 02:30] VITALS: BP 164/71; PULSE 54; RESP 20
[2019-04-20 03:00] VITALS: BP 194/74; PULSE 65
[2019-04-20 03:35] VITALS: BP 139/65; PULSE 69
[2019-04-20] MEDS: PANTOPRAZOLE (EC) 40 MG TAB PO SCH ×2 (05:43→17:23)
[2019-04-20] MEDS: HEPARIN 5,000 UNIT/1 ML VIAL SC SCH ×3 (05:45→21:54)
[2019-04-20 07:27] VITALS: BP 183/73; PULSE 73; RESP 20
[2019-04-20] MEDS: MEROPENEM 1 GM/50ML(PMX) 50 ML IVPB SCH (09:30)
--- NOTE | 2019-04-20 11:10 | CONS ---
Assessment/Plan Assessment/Plan Hospital Course (Demo Recall) All noted, no acute events, + diarrhea started this am Urine cx + GNR Antimicrobials: Merrem Physical examination: Obese well-developed elderly woman who is awake in no distress. Head atraumatic normocephalic sclera nonicteric vehicle mucosa dry neck is obese chest rise symmetrical breath sounds diminished bases heart S1-S2 abdomen soft bowel sounds present extremities without cyanosis Assessment: 1. Recurrent UTI 2. Morbid obesity 3. Diabetes 4. Hypertension Plan: Stable, will send stool for C dif, start emp Flagyl, change abx to Cipro Consultation Date/Type/Reason Admit Date/Time Apr 19, 2019 at 16:17 Initial Consult Date Type of Consult id Date/Time of Note DATE: 04/20/19 TIME: 11:10 Exam/Review of Systems Exam Vitals Vital Signs Date Temp Pulse Resp B/P (MAP) Pulse Ox O2 O2 Flow FiO2 Time Delivery Rate 04/20/19 98.7 73 20 183/73 98 Room Air 07:27 (109) Intake and Output 04/19/19 04/19/19 04/20/19 1515:00 23:00 07:00 IntakeIntake Total 530 ml 290 ml 250 ml OutputOutput Total 200 ml BalanceBalance 530 ml 290 ml 50 ml Results Result Diagram: 04/19/19 0427 04/19/19 0427 Medications Medication Current Medications Meropenem/Sodium Chloride 50 ml @ 100 mls/hr Q12 IVPB Last administered on 04/20/19at 09:30; Admin Dose 100 MLS/HR; Start 04/18/19 at 01:00 IV Flush (NS 3 ml) 3 ml PER PROTOCOL IV ; Start 04/18/19 at 00:30 Ondansetron HCl (Zofran Inj) 4 mg Q6H PRN IV NAUSEA/VOMITING Last administered on 04/18/19at 21:45; Admin Dose 4 MG; Start 04/18/19 at 00:30 Acetaminophen (Tylenol Tab) 650 mg Q6H PRN PO .PAIN 1-3 OR TEMP Last administered on 04/19/19at 20:24; Admin Dose 650 MG; Start 04/18/19 at 00:30 Docusate Sodium (Colace) 100 mg Q12H PRN PO .CONSTIPATION; Start 04/18/19 at 00:30 Bisacodyl (Dulcolax) 5 mg DAILY PRN PO .CONSTIPATION; Start 04/18/19 at 00:30 Heparin Sodium (Porcine) (Heparin (5000 Units/1ml)) 5,000 unit Q8 SC Last administered on 04/20/19 05:45; Admin Dose 5,000 UNIT; Start 04/18/19 at 00:30 Clonidine (Catapres) 0.1 mg TID PRN PO ELEVATED BLOOD PRESSURE Last adm inistered on 04/20/19 09:31; Admin Dose 0.1 MG; Start 04/18/19 at 00:30 Atorvastatin Calcium (Lipitor) 40 mg QHS PO Last administered on 04/18/19 21:04; Admin Dose 40 MG; Start 04/18/19 at 21:00 Pantoprazole (Protonix Tab) 40 mg BID@0600,1800 PO Last administered on 04/20/19 05:43; Admin Dose 40 MG; Start 04/18/19 at 08:30 Hydralazine HCl (Apresoline) 10 mg Q4H PRN IV SBP ABOVE 170 Last administered on 04/20/19 02:54; Admin Dose 10 MG; Start 04/18/19 at 08:30 ANA MARIA ZULETA NP Apr 20, 2019 11:10
[2019-04-20] MEDS: metroNIDAZOLE 500 MG TAB PO SCH ×2 (13:41→21:45)
[2019-04-20 14:43] VITALS: BP 155/66; PULSE 69; RESP 18
--- NOTE | 2019-04-20 16:14 | PN ---
Date/Time of Note Date/Time of Note DATE: 04/20/19 TIME: 16:11 Assessment/Plan VTE Prophylaxis Risk score (from Ns)>0 risk: 3 SCD applied (from Ns): Yes Pharmacological prophylaxis: NA/contraindicated Pharm contraindication: low risk/ambulating Lines/Catheters IV Catheter Type (from Nrsg): Peripheral IV Urinary Cath still in place: No Assessment/Plan Assessment/Plan Morbidly obese 63 yo woman presents with nausea and diarrhea #Nausea #Diarrhea - Likely acute gastroenteritis, could be viral or bacterial preformed toxin. - Symptoms now resolving, patient tolerating diet. #UTI - Apparently in ED patient reports urinary urgency, but she denies this to me. She does have foul smelling urine - Certainly no pyelo on exam or CT. - Urine growing jackson-sensitive Klebsiella and another gram-negative organism. # hypertension: PRN clonidine/hydralazine. # diabetes mellitus: hemoglobin A1c 6.1, last one since 2018 was 5.0. # hyperlipidemia: Continue statin # DVT GI prophylaxis: SCDs, no GI prophylaxis indicated Dispo: Pending urine culture results. Result Diagram: 04/19/1942604/19/19426 Subjective 24 Hr Interval Summary Free Text/Dictation No acute overnight events. Patient feeling well. Exam/Review of Systems Exam Vitals Vital Signs Date Temp Pulse Resp B/P (MAP) Pulse Ox O2 O2 Flow FiO2 Time Delivery Rate 04/20/19 98.0 69 18 155/66 100 Room Air 14:43 (95) Intake and Output 04/19/19 04/19/19 04/20/19 1515:00 23:00 07:00 IntakeIntake Total 530 ml 290 ml 250 ml OutputOutput Total 200 ml BalanceBalance 530 ml 290 ml 50 ml Exam General: Morbidly obese woman currently sitting in chair in no acute distress, awake and alert HEENT: Atraumatic, normocephalic. The pupils are equal, round and reactive. Extraocular motor are intact Neck: Supple with full range of motion. No rigidity or meningismus Chest: Nontender Lungs: Clear to auscultation bilaterally no crackles rales or wheezing Heart: Normal S1-S2, Regular rhythm and rate. No murmur, S3, or S4 Abdomen: Soft, mild tenderness provisional suprapubic area, normal bowel sounds, no rebound or guarding Extremities: Normal to inspection, no edema no cyanosis Medications Medication Current Medications IV Flush (NS 3 ml) 3 ml PER PROTOCOL IV ; Start 04/18/19 at 00:30 Ondansetron HCl (Zofran Inj) 4 mg Q6H PRN IV NAUSEA/VOMITING Last administered on 04/18/19 21:45; Admin Dose 4 MG; Start 04/18/19 at 00:30 Acetaminophen (Tylenol Tab) 650 mg Q6H PRN PO .PAIN 1-3 OR TEMP Last administered on 04/19/19 20:24; Admin Dose 650 MG; Start 04/18/19 at 00:30 Docusate Sodium (Colace) 100 mg Q12H PRN PO .CONSTIPATION; Start 04/18/19 at 00:30 Bisacodyl (Dulcolax) 5 mg DAILY PRN PO .CONSTIPATION; Start 04/18/19 at 00:30 Heparin Sodium (Porcine) (Heparin (5000 Units/1ml)) 5,000 unit Q8 SC Last administered on 04/20/19 13:43; Admin Dose 5,000 UNIT; Start 04/18/19 at 00:30 Clonidine (Catapres) 0.1 mg TID PRN PO ELEVATED BLOOD PRESSURE Last administered on 04/20/19 09:31; Admin Dose 0.1 MG; Start 04/18/19 at 00:30 Atorvastatin Calcium (Lipitor) 40 mg QHS PO Last administered on 04/18/19 21:04; Admin Dose 40 MG; Start 04/18/19 at 21:00 Pantoprazole (Protonix Tab) 40 mg BID@0600,1800 PO Last administered on 04/20/19 05:43; Admin Dose 40 MG; Start 04/18/19 at 08:30 Hydralazine HCl (Apresoline) 10 mg Q4H PRN IV SBP ABOVE 170 Last administered on 04/20/19 02:54; Admin Dose 10 MG; Start 04/18/19 at 08:30 Ciprofloxacin (Cipro) 500 mg BID@06,18 PO ; Start 04/20/19 at 18:00 Metronidazole (Flagyl) 500 mg Q8 PO Last administered on 04/20/19 13:41; Admin Dose 500 MG; Start 04/20/19 at 14:00 NOEMÍ TAPIA MD Apr 20, 2019 16:14
[2019-04-20] MEDS: CIPROFLOXACIN 500 MG TAB PO SCH (17:24)
[2019-04-20 20:00] VITALS: BP 178/77; PULSE 81; RESP 20
[2019-04-20] MEDS: ONDANSETRON 4 MG INJ IV PRN (21:45)
[2019-04-20] MEDS: ATORVASTATIN 40 MG TAB PO SCH (21:45)
[2019-04-20] MEDS ORDERED: LORAZEPAM 0.5 MG TAB PO PRN (22:50)
[2019-04-20] MEDS ORDERED: traMADol 50 MG TAB PO PRN (23:30)
[2019-04-21 02:00] VITALS: BP 188/77; PULSE 70; RESP 20
[2019-04-21 03:00] VITALS: BP 140/65; PULSE 66; RESP 20
[2019-04-21] MEDS: PANTOPRAZOLE (EC) 40 MG TAB PO SCH (06:39)
[2019-04-21] MEDS: HEPARIN 5,000 UNIT/1 ML VIAL SC SCH ×2 (06:41→14:02)
[2019-04-21 07:18] VITALS: BP 129/62; PULSE 72; RESP 19
[2019-04-21] MEDS: CIPROFLOXACIN 500 MG TAB PO SCH (09:42)
[2019-04-21] MEDS: metroNIDAZOLE 500 MG TAB PO SCH (09:42)
--- NOTE | 2019-04-21 13:04 | CONS ---
Assessment/Plan Assessment/Plan Hospital Course (Demo Recall) All noted, no acute events, no fevers, C dif neg Urine cx + Kleb/E coli Antimicrobials: Merrem Physical examination: Obese well-developed elderly woman who is awake in no distress. Head atraumatic normocephalic sclera nonicteric vehicle mucosa dry neck is obese chest rise symmetrical breath sounds diminished bases heart S1-S2 abdomen soft bowel sounds present extremities without cyanosis Assessment: 1. Recurrent UTI 2. Morbid obesity 3. Diabetes 4. Hypertension Plan: Stable, change abx to Keflex Consultation Date/Type/Reason Admit Date/Time Apr 19, 2019 at 16:17 Initial Consult Date Type of Consult id Date/Time of Note DATE: 04/21/19 TIME: 13:03 Exam/Review of Systems Exam Vitals Vital Signs Date Temp Pulse Resp B/P (MAP) Pulse Ox O2 O2 Flow FiO2 Time Delivery Rate 04/21/19 98.2 72 19 129/62 98 07:18 (84) 04/20/19 Room Air 20:00 Intake and Output 04/20/19 04/20/19 04/21/19 1515:00 23:00 07:00 IntakeIntake Total 490 ml 880 ml 420 ml BalanceBalance 490 ml 880 ml 420 ml Results Result Diagram: 04/19/19 0427 04/19/19 0427 Medications Medication Current Medications IV Flush (NS 3 ml) 3 ml PER PROTOCOL IV Last administered on 04/20/19at 22:58; Admin Dose 3 ML; Start 04/18/19 at 00:30 Ondansetron HCl (Zofran Inj) 4 mg Q6H PRN IV NAUSEA/VOMITING Last administered on 04/20/19at 21:45; Admin Dose 4 MG; Start 04/18/19 at 00:30 Acetaminophen (Tylenol Tab) 650 mg Q6H PRN PO .PAIN 1-3 OR TEMP Last administered on 04/19/19at 20:24; Admin Dose 650 MG; Start 04/18/19 at 00:30 Docusate Sodium (Colace) 100 mg Q12H PRN PO .CONSTIPATION; Start 04/18/19 at 00:30 Bisacodyl (Dulcolax) 5 mg DAILY PRN PO .CONSTIPATION; Start 04/18/19 at 00:30 Heparin Sodium (Porcine) (Heparin (5000 Units/1ml)) 5,000 unit Q8 SC Last administered on 04/21/19 06:41; Admin Dose 5,000 UNIT; Start 04/18/19 at 00:30 Clonidine (Catapres) 0.1 mg TID PRN PO ELEVATED BLOOD PRESSURE Last administered on 04/21/19 01:52; Admin Dose 0.1 MG; Start 04/18/19 at 00:30 Atorvastatin Calcium (Lipitor) 40 mg QHS PO Last administered on 04/20/19 21:45; Admin Dose 40 MG; Start 04/18/19 at 21:00 Pantoprazole (Protonix Tab) 40 mg BID@0600,1800 PO Last administered on 04/21/19 06:39; Admin Dose 40 MG; Start 04/18/19 at 08:30 Hydralazine HCl (Apresoline) 10 mg Q4H PRN IV SBP ABOVE 170 Last administered on 04/20/19 02:54; Admin Dose 10 MG; Start 04/18/19 at 08:30 Ciprofloxacin (Cipro) 500 mg BID@06,18 PO Last administered on 04/21/19 09:42; Admin Dose 500 MG; Start 04/20/19 at 18:00 Metronidazole (Flagyl) 500 mg Q8 PO Last administered on 04/21/19 09:42; Admin Dose 500 MG; Start 04/20/19 at 14:00 Lorazepam (Ativan) 0.5 mg HS PRN PO ANXIETY Last administered on 04/20/19 22:58; Admin Dose 0.5 MG; Start 04/20/19 at 22:50 Tramadol HCl (Ultram) 50 mg Q6H PRN PO MODERATE PAIN LEVEL 4-6; Start 04/20/19 at 23:30 ANA MARIA ZULETA NP Apr 21, 2019 13:04
[2019-04-21] MEDS ORDERED: NITR100C7 PO (13:49)
--- NOTE | 2019-04-21 13:50 | PDOCDIS ---
Discharge Instructions DIAGNOSIS Discharge Diagnosis Urinary tract infection. CONDITION [id number] Patient Condition: [id number] Good HOME CARE INSTRUCTIONS: [id number] Diet Instructions: [id number] Regular ACTIVITY: [id number] Activity Restrictions: [id number] Slowly Increase Activity Lovia4Vc Bathing Restrictions: [id number] Tub Bath FOLLOW UP/APPOINTMENTS Follow-up Plan 1. Take all medications as prescribed. Finish 5 days of nitrofurantoin (an antibiotic). It was sent to your [facility] pharmacy on . 2. See your primary care doctor in clinic as scheduled. 1. Posey todos los medicamentos segn lo prescrito. Terminar 5 cruz de nitrofurantona (un antibitico). Fue [facility]viado [facility] en . 2. Consulte a [facility] de atencin primaria en la clnica segn lo programado. NOEMÍ TAPIA MD Apr 21, 2019 13:50
[2019-04-21] MEDS: ONDANSETRON 4 MG INJ IV PRN (14:00)
[2019-04-21] MEDS ORDERED: CEPHALEXIN 500 MG CAP PO SCH (14:00)
[2019-04-21] MEDS ORDERED: ONDA4TAB95 PO (14:27)
--- NOTE | 2019-04-21 15:33 | DS ---
Date/Time of Note Date/Time of Note DATE: 04/21/19 TIME: 15:30 Discharge Summary Admission/Discharge Info Admit Date/Time Apr 19, 2019 at 16:17 Discharge Date/Time Apr 21, 2019 at 14:58 Discharge Diagnosis Urinary tract infection. Patient Condition: Good Consults Dr. Godfrey, infectious disease Procedures None Hx of Present Illness Chief complaint: Vomiting, diarrhea, This is a 63-year-old morbidly obese woman who presented to the emergency department complaining of diarrhea and vomiting. Family presents with the patient at the bedside. Family and patient states that the patient has been experiencing diarrhea and vomiting for the last few days. Patient is also been expressing chills but denies any fevers. She has had difficulty keeping her p.o. solid foods down but she is able to tolerate liquids. She denies any urinary incontinence or dysuria. Denies eating any foul tasting or undercooked food. Denies any fevers. Allergies: NKDA Medications: See [facility] Hospital Course She was started on empiric zosyn for suspected UTI. Diarrhea and nausea gradually improved. Urine culture grew Klebsiella (jackson-sensitive) and E Coli (sensitive to cephalosporins and nitrofurantoin). She was discharged on nitrofurantoin. Home Meds Active Scripts Ondansetron Hcl* (Ondansetron Hcl*) 4 Mg Tablet, 4 MG PO Q6H PRN for NAUSEA, #8 TAB Prov:NOEMÍ TAPIA MD 04/21/19 Nitrofurantoin Macrocrystal* (Nitrofurantoin Macrocrystal*) 100 Mg Capsule, 100 MG PO BID for 5 Days, #10 CAP Prov:NOEMÍ TAPIA MD 04/21/19 Clonidine Hcl* (Clonidine Hcl*) 0.1 Mg Tab, 0.1 MG PO TID PRN for ELEVATED BLOOD PRESSURE for 30 Days, #90 TAB If SBP >170, take one tablet by mouth Prov:KAREN GARNER MD 12/31/17 Pantoprazole* (Protonix*) 40 Mg Tablet.dr 40 MG PO BID, #60 TAB Prov:JEAN MARIE HERNANDEZ NP 10/26/17 Reported Medications Atorvastatin* (Atorvastatin*) 40 Mg Tablet, 40 MG PO QHS, #30 TAB 04/18/19 Atorvastatin Calcium* (Atorvastatin Calcium*) 20 Mg Tablet, 20 MG PO QHS, #30 TAB 04/18/19 Furosemide* (Furosemide*) 20 Mg Tablet, 20 MG PO BID for 30 Days, #60 04/18/19 Discontinued Reported Medications Simvastatin* (Zocor*) 20 Mg Tablet, 20 MG PO QHS, #30 TAB 10/21/17 Discontinued Scripts Megestrol Acetate (Megestrol Acetate) 400 Mg/10 Ml Oral.susp, 400 MG PO BID for 30 Days, #1 BOTTLE Prov:KAREN GARNER MD 12/31/17 Metoclopramide Hcl* (Metoclopramide Hcl*) 10 Mg Tablet, 10 MG PO Q8 for 30 Days, #90 TAB Prov:KAREN GARNER MD 12/31/17 Escitalopram Oxalate* (Escitalopram Oxalate*) 10 Mg Tablet, 20 MG PO DAILY for 30 Days, #30 TAB Prov:KAREN GARNER MD 12/31/17 Losartan Potassium* (Losartan Potassium*) 100 Mg Tablet, 100 MG PO DAILY for 30 Days, #30 TAB Prov:KAREN GARNER MD 12/31/17 Doxycycline* (Vibramycin*) 100 Mg Tab, 100 MG PO BID for 7 Days, #15 TAB Prov:KAREN GARNER MD 12/31/17 Hydrocodone Bit-Acetaminophen (Hydrocodone Bit-APAP) 5-325MG Tablet, 1 TAB PO Q6H PRN for MODERATE PAIN LEVEL 4-6 for 10 Days, #20 TAB Prov:KAREN GARNER MD 12/15/17 Levothyroxine Sodium* (Levothyroxine Sodium*) 50 Mcg Tablet, 50 MCG PO DAILY@06 for 30 Days, #30 TAB Prov:KAREN GARNER MD 12/15/17 Polyethylene Glycol* (Miralax*) 17 Gm Powd.pack, 8.5 GM PO DAILY for 30 Days, #30 PACKET Prov:KAREN GARNER MD 12/15/17 Ondansetron (Ondansetron Odt) 4 Mg Tab.rapdis, 4 MG PO Q6H PRN for NAUSEA AND/OR VOMITING, #10 TAB Prov:ARIK,HUGO 11/10/17 Nateglinide* (Starlix*) 120 Mg Tablet, 120 MG PO AC MEALS, #90 TAB Prov:JEAN MARIE HERNANDEZ NP 10/26/17 Alogliptin Benzoate (Alogliptin) 12.5 Mg Tablet, 12.5 MG PO DAILY, #30 TAB Prov:JEAN MARIE HERNANDEZ VNicko ZAMORA 10/26/17 Follow-up Plan 1. Take all medications as prescribed. Finish 5 days of nitrofurantoin (an antibiotic). It was sent to your [facility] pharmacy on . 2. See your primary care doctor in clinic as scheduled. 1. [place] todos los medicamentos segn lo prescrito. Terminar 5 cruz de nitrofurantona (un antibitico). Fue enviado a fox farmacia [facility] en [facility]. 2. Consulte a fox mdico de atencin primaria en la clnica segn lo programado. Primary Care Provider Wilner Owens Time spent on discharge: > 30 minutes Pending Labs Microbiology Date/Time Source Procedure Growth Status 04/20/19 20:10 Feces Clostridium difficile Toxin Assay - Final Complete NOEMÍ TAPIA MD Apr 21, 2019 15:33
== END 2019-04-21 14:58 | disposition home or self-care (01) | DRG 690 ==
LOC: E/R 20:32 → MS1 23:44 → OBSVTOIN 04-19 16:17
PROVIDERS: ADMIT Family Medicine; ATTEND Internal Medicine
DX: N39.0 Urinary tract infection, site not specified (principal); Z68.41 Body mass index [BMI] 40.0-44.9, adult; E66.01 Morbid (severe) obesity due to excess calories; E11.9 Type 2 diabetes mellitus without complications; E78.5 Hyperlipidemia, unspecified; I10 Essential (primary) hypertension; Z90.49 Acquired absence of other specified parts of digestive tract; Z87.891 Personal history of nicotine dependence
CPT/HCPCS: 36415; 71045; 74176; 80048; 80053; 80061; 81001; 83036; 83690; 83735; 84443; 85025; 87045; 87075; 87086; 87177; 87205; 96374; 96375; G0378; J0360; J0696; J1644; J2185; J2270; J2405; J7040

== ENCOUNTER 2019-04-23 14:16 | Inpatient (IN) | payer MEDICARE, OTHER ==
[~2019-04-23] VITALS: Ht 157.5 cm; Wt 80.7 kg
[~2019-04-23 14:16] MED LIST changes: -ALOG12.52 PO; +ATOR20TA38 PO; +ATOR40TA68 PO; -DOXY100T2 PO; -ESCI10TA48 PO; +FURO20TA3 PO; -HYDR-3601 PO; -LEVO50TA7 PO; -LOSA100T15 PO; -MEGE400O4 PO; -METO10TA3 PO; -NATE120T12 PO; +NITR100C7 PO; -ONDA4TAB14 PO; +ONDA4TAB95 PO; -POLY17PO6 PO; -SIMV20TA PO
[2019-04-23 14:34] VITALS: Ht 157.5 cm; Wt 80.7 kg
--- NOTE | 2019-04-23 17:24 | ERD ---
ER Documentation Chief Complaint Chief Complaint RECENT ADMISSION WITH VOMITING/WEAKNESS/ LOW BACK RASH HPI This is a 64-year-old woman recently diagnosed with urinary tract infection and prescribed nitrofurantoin presents with multiple complaints including loss of appetite, abdominal cramping, loose stools, and mild rash. Family member was at the bedside suspect symptoms are due to Macrobid use, she states Linsey has been feeling weak and dehydrated. Patient denies chest pain or shortness of breath, no fevers or chills, no loss of consciousness, no headache or blurry vision ROS All systems reviewed and are negative except as per history of present illness. Medications Home Meds Reported Medications Atorvastatin* (Atorvastatin*) 40 Mg Tablet, 40 MG PO QHS, #30 TAB 04/23/19 Escitalopram Oxalate* (Escitalopram Oxalate*) 10 Mg Tablet, 10 MG PO NEEDED, #30 TAB 04/23/19 Pantoprazole* (Pantoprazole*) 40 Mg Tablet.dr, 40 MG PO AC BREAKFAST, TAB 04/23/19 Glimepiride* (Glimepiride*) 1 Mg Tablet, 1 MG PO WITH BREAKFAST PRN for NEEDED, TAB 04/23/19 Clonidine Hcl* (Clonidine Hcl*) 0.1 Mg Tab, 0.1 MG PO TID, TAB 04/23/19 Discontinued Reported Medications Atorvastatin* (Atorvastatin*) 40 Mg Tablet, 40 MG PO QHS, #30 TAB 04/18/19 Atorvastatin Calcium* (Atorvastatin Calcium*) 20 Mg Tablet, 20 MG PO QHS, #30 TAB 04/18/19 Furosemide* (Furosemide*) 20 Mg Tablet, 20 MG PO BID for 30 Days, #60 04/18/19 Simvastatin* (Zocor*) 20 Mg Tablet, 20 MG PO QHS, #30 TAB 10/21/17 Discontinued Scripts Ondansetron Hcl* (Ondansetron Hcl*) 4 Mg Tablet, 4 MG PO Q6H PRN for NAUSEA, #8 TAB Prov:NOEMÍ TAPIA MD 04/21/19 Nitrofurantoin Macrocrystal* (Nitrofurantoin Macrocrystal*) 100 Mg Capsule, 100 MG PO BID for 5 Days, #10 CAP Prov:NOEMÍ TAPIA MD 04/21/19 Clonidine Hcl* (Clonidine Hcl*) 0.1 Mg Tab, 0.1 MG PO TID PRN for ELEVATED BLOOD PRESSURE for 30 Days, #90 TAB If SBP >170, take one tablet by mouth Prov:KAREN GARNRE MD 12/31/17 Pantoprazole* (Protonix*) 40 Mg Tablet.dr, 40 MG PO BID, #60 TAB Prov:JEAN MARIE HERNANDEZ NP 10/26/17 Megestrol Acetate (Megestrol Acetate) 400 Mg/10 Ml Oral.susp, 400 MG PO BID for 30 Days, #1 BOTTLE Prov:KAREN GARNER MD 12/31/17 Metoclopramide Hcl* (Metoclopramide Hcl*) 10 Mg Tablet, 10 MG PO Q8 for 30 Days, #90 TAB Prov:KAREN GARNER MD 12/31/17 Escitalopram Oxalate* (Escitalopram Oxalate*) 10 Mg Tablet, 20 MG PO DAILY for 30 Days, #30 TAB Prov:KAREN GARNER MD 12/31/17 Losartan Potassium* (Losartan Potassium*) 100 Mg Tablet, 100 MG PO DAILY for 30 Days, #30 TAB Prov:KAREN GARNER MD 12/31/17 Doxycycline* (Vibramycin*) 100 Mg Tab, 100 MG PO BID for 7 Days, #15 TAB Prov:KAREN GARNER MD 12/31/17 Hydrocodone Bit-Acetaminophen (Hydrocodone Bit-APAP) 5-325MG Tablet, 1 TAB PO Q6H PRN for MODERATE PAIN LEVEL 4-6 for 10 Days, #20 TAB Prov:KAREN GARNER MD 12/15/17 Levothyroxine Sodium* (Levothyroxine Sodium*) 50 Mcg Tablet, 50 MCG PO DAILY@06 for 30 Days, #30 TAB Prov:KAREN GARNER MD 12/15/17 Polyethylene Glycol* (Miralax*) 17 Gm Powd.pack, 8.5 GM PO DAILY for 30 Days, #30 PACKET Prov:KAREN GARNER MD 12/15/17 Ondansetron (Ondansetron Odt) 4 Mg Tab.rapdis, 4 MG PO Q6H PRN for NAUSEA AND/OR VOMITING, #10 TAB Prov:ARIK,HUGO 11/10/17 Nateglinide* (Starlix*) 120 Mg Tablet, 120 MG PO AC MEALS, #90 TAB Prov:JEAN MARIE HERNANDEZ NP 10/26/17 Alogliptin Benzoate (Alogliptin) 12.5 Mg Tablet, 12.5 MG PO DAILY, #30 TAB Prov:JEAN MARIE HERNANDEZ V. WASHING MACHINE REPAIRER 10/26/17 Allergies Allergies: Coded Allergies: nitrofurantoin (Unverified Allergy, Unknown, itching and skin rashes, 04/23/19) PMhx/Soc History of morbid obesity and recurrent UTIs, history of dysphasia due to esophageal stricture status post PEG tube placement, hypertension, diabetes mellitus, knee osteoarthritis, anemia History of Surgery: Yes (2 Cesarian sections; right shoulder fracture,) Anesthesia Reaction: No Hx Neurological Disorder: No Hx Respiratory Disorders: No Hx Cardiac Disorders: Yes (Hypertension) Hx Psychiatric Problems: No Hx Miscellaneous Medical Probl: No Hx Alcohol Use: No Hx Substance Use: No Hx Tobacco Use: No FmHx Family History: diabetes Physical Exam Vitals Vital Signs Date Temp Pulse Resp B/P (MAP) Pulse Ox O2 O2 Flow FiO2 Time Delivery Rate 04/23/19 81 17 152/70 98 Room Air 18:06 (97) 04/23/19 99.0 98 20 163/75 98 14:34 (104) Physical Exam GENERAL: Well-developed, well-nourished, well-hydrated, appears dehydrated, afebrile HEENT: Dry mucous membranes, pink conjunctiva, no cervical spine tenderness or step-off deformities, no goiter, no jaundice or icterus, extraocular movements intact without pain. LUNGS: Clear bilaterally no wheezing crackles or stridor ABDOMEN: Soft nontender, no guarding, no rigidity, no rebound, no psoas sign no obturator sign. SKIN: Warm and dry to touch, no abrasions, contusions, or hematomas, no lacerations, no ecchymosis, no target lesions, and without ulcers EXTREMITIES: No clubbing cyanosis or edema, calves are bilaterally symmetrical, no Homans sign, no popliteal cord sign. Distal pulses equal and bilateral PSYCH: Anxious Result Diagram: 04/23/19 1732 04/23/19 1732 Results 24 hrs Laboratory Tests Test 04/23/19 17:32 04/23/19 18:01 White Blood Count 17.6 10^3/ul Red Blood Count 4.28 10^6/ul Hemoglobin 11.0 g/dl Hematocrit 35.9 % Mean Corpuscular Volume 83.9 fl Mean Corpuscular Hemoglobin 25.7 pg Mean Corpuscular Hemoglobin Concent 30.6 g/dl Red Cell Distribution Width 17.7 % Platelet Count 403 10^3/UL Mean Platelet Volume 9.9 fl Immature Granulocytes % 3.800 % Neutrophils % 67.6 % Lymphocytes % 16.6 % Monocytes % 6.5 % Eosinophils % 4.8 % Basophils % 0.7 % Nucleated Red Blood Cells % 0.0 /100WBC Immature Granulocytes # 0.660 10^3/ul Neutrophils # 11.9 10^3/ul Lymphocytes # 2.9 10^3/ul Monocytes # 1.1 10^3/ul Eosinophils # 0.9 10^3/ul Basophils # 0.1 10^3/ul Nucleated Red Blood Cells # 0.0 10^3/ul Sodium Level 136 mmol/L Potassium Level 3.9 mmol/L Chloride Level 106 mmol/L Carbon Dioxide Level 18 mmol/L Anion Gap 12 Blood Urea Nitrogen 11 mg/dl Creatinine 1.21 mg/dl Est Glomerular Filtrat Rate mL/min 45 mL/min Glucose Level 108 mg/dl Calcium Level 9.9 mg/dl Total Bilirubin 0.5 mg/dl Direct Bilirubin 0.00 mg/dl Indirect Bilirubin 0.5 mg/dl Aspartate Amino Transf (AST/SGOT) 30 IU/L Alanine Aminotransferase (ALT/SGPT) 23 IU/L Alkaline Phosphatase 122 IU/L Total Protein 7.1 g/dl Albumin 3.7 g/dl Globulin 3.40 g/dl Albumin/Globulin Ratio 1.08 Lipase 64 U/L Urine Color YELLOW Urine Clarity SLIGHTLY CLOUDY Urine pH 6.0 Urine Specific [place] 1.010 Urine Ketones 1+ mg/dL Urine Nitrite NEGATIVE mg/dL Urine Bilirubin NEGATIVE mg/dL Urine Urobilinogen NEGATIVE mg/dL Urine Leukocyte Esterase 2+ Dion/ul Urine Microscopic RBC 4 /HPF Urine Microscopic WBC 17 /HPF Urine Squamous Epithelial Cells MODERATE /HPF Urine Bacteria FEW /HPF Urine Hemoglobin NEGATIVE mg/dL Urine Glucose NEGATIVE mg/dL Urine Total Protein 2+ mg/dl Current Medications Medications Dose Sig/Lisbeth Start Time Status Last (Trade) Ordered Route PRN Stop Time Admin Dose Reason Admin Alprazolam 0.5 mg ONCE ONCE 04/23/19 DC 04/23/19 (Xanax) PO 17:30 17:36 04/23/19 17:31 Sodium 1,000 ml @ Q1H STAT 04/23/19 DC 04/23/19 Chloride 1,000 mls/hr IV 17:26 17:35 04/23/19 18:25 Ondansetron 4 mg ONCE STAT 04/23/19 DC 04/23/19 HCl (Zofran IV 17:26 17:35 Inj) 04/23/19 17:28 40 ml ONCE STAT 04/23/19 DC 04/23/19 Miscellaneous PO 17:26 17:35 Medication 04/23/19 17:28 (Gi Cocktail (2)) Belladonna/ 2 tab ONCE STAT 04/23/19 DC 04/23/19 Phenobarbital PO 17:26 17:36 () 04/23/19 17:28 Ketorolac 15 mg ONCE STAT 04/23/19 DC 04/23/19 Tromethamine IV 17:26 17:35 (Toradol) 04/23/19 17:28 Enalaprilat 1.25 mg ONCE ONCE 04/23/19 DC (Vasotec Iv) IV 17:30 04/23/19 17:34 Procedures/MDM IV line was established patient was placed on instructional support technician rhythm strip revealed a sinus rhythm at about 80 bpm with upright P and T waves. Patient was afebrile I administered 1 L normal saline IV for dehydration, enalapril 1.25 mg IV for hypertension, GI cocktail p.o., Toradol 15 mg IV, Zofran 4 mg IV. I suspect she received ceftriaxone on her first admission so I administered cefepime 1 g IV. Urine analysis was positive for infection CBC reveals a leukocytosis at 18, electrolytes and liver function tests are unremarkable I administered Toradol 50 mg IV, Zofran 4 mg IV, GI cocktail p.o., alprazolam 0.5 mg p.o. for anxiety, and enalapril 1.25 mg IV for hypertension. Patient presented today with complaints of diarrhea, generalized weakness, and continued urinary symptoms, she has been using nitrofurantoin without relief and so will be admitted to telemetry for continued hydration and antibiotic optimization. Departure Diagnosis: Primary Impression: Acute weakness Additional Impressions: Hypertension Hypertension type: essential hypertension Qualified Codes: I10 - Essential (primary) hypertension UTI (urinary tract infection) Urinary tract infection type: acute cystitis Hematuria presence: without hematuria Qualified Codes: N30.00 - Acute cystitis without hematuria Acute dehydration Diarrhea Diarrhea type: unspecified type Qualified Codes: R19.7 - Diarrhea, unspecified Condition: LINDA Alicea MD Apr 23, 2019 17:24
[2019-04-23] MEDS ORDERED: LIDOCAINE/MYLANTA 40 ML BTL PO STA (17:26)
[2019-04-23] MEDS ORDERED: SOD CHLORIDE 0.9% 1,000 ML IV STA (17:26)
[2019-04-23] MEDS ORDERED: BELLADONNA/PHENOBARBITAL TAB PO STA (17:26)
[2019-04-23] MEDS ORDERED: ONDANSETRON 4 MG INJ IV STA (17:26)
[2019-04-23] MEDS ORDERED: KETOROLAC 15 MG INJ IV STA (17:26)
[2019-04-23] MEDS ORDERED: ENALAPRILAT 1.25 MG INJ IV ONE (17:30)
[2019-04-23] MEDS ORDERED: ALPRAZOLAM 0.25 MG TAB PO ONE (17:30)
[2019-04-23] MEDS ORDERED: CLON-379 PO (17:38)
[2019-04-23] MEDS ORDERED: PANT40TA4 PO (17:39)
[2019-04-23] MEDS ORDERED: GLIM1TAB2 PO (17:39)
[2019-04-23] MEDS ORDERED: ESCI10TA48 PO (17:40)
[2019-04-23] MEDS ORDERED: ATOR40TA68 PO (17:40)
[2019-04-23] MEDS ORDERED: CEFEPIME 1GM/50 ML (PMX) 50 ML IVPB ONE (18:30)
[2019-04-23] MEDS ORDERED: NACL 0.9% 3 ML SYG IV SCH (20:00)
[2019-04-23] MEDS ORDERED: DOCUSATE SODIUM 100 MG CAP PO PRN (20:00)
[2019-04-23] MEDS ORDERED: BISACODYL (EC) 5 MG TAB PO PRN (20:00)
--- NOTE | 2019-04-23 20:00 | HP ---
Date/Time of Note Date/Time of Note DATE: 04/23/19 TIME: 19:53 Assessment/Plan VTE Prophylaxis SCD applied (from Nsg): Yes Pharmacological prophylaxis: NA/contraindicated Pharm contraindication: low risk/ambulating Lines/Catheters IV Catheter Type (from Nrsg): Peripheral IV Assessment/Plan Hospital Course This is a 63 female being admitted to the [facility] floor for: #1 urinary tract infection: failed outpatient treatment. Previously urine cx shows klebsiella . This likely could be contributing to patient's underlying diarrhea and vomiting. 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 Will put the patient on meropenem test on previous sensitivities. #2 Diarrhea: previous stool studies showed postive for pseudomonas, possibly contaminant. Will repeat stool studies. On meropenem. consult ID. #3 hypertension: PRN clonidine/hydralazine. #4 diabetes mellitus: a1c 6.1, hold glipizide for now as patient is having diarrhea and vomitting. clear liquids. #5 hyperlipidemia: Continue statin #6 history of urinary tract infection: Patient has a history of multidrug- resistant UTIs. #7 DVT GI prophylaxis: SCDs, no GI prophylaxis indicated Further treatment strategy will be implemented as per the clinical course. Result Diagram: 04/23/19 1732 04/23/19 1732 Results 24hrs Laboratory Tests Test 04/23/19 17:32 04/23/19 18:01 White Blood Count 17.6 #H Red Blood Count 4.28 Hemoglobin 11.0 L Hematocrit 35.9 L Mean Corpuscular Volume 83.9 Mean Corpuscular Hemoglobin 25.7 L Mean Corpuscular Hemoglobin Concent 30.6 L Red Cell Distribution Width 17.7 H Platelet Count 403 Mean Platelet Volume 9.9 Immature Granulocytes % 3.800 H Neutrophils % 67.6 Lymphocytes % 16.6 Monocytes % 6.5 Eosinophils % 4.8 Basophils % 0.7 Nucleated Red Blood Cells % 0.0 Immature Granulocytes # 0.660 H Neutrophils # 11.9 H Lymphocytes # 2.9 Monocytes # 1.1 H Eosinophils # 0.9 H Basophils # 0.1 Nucleated Red Blood Cells # 0.0 Sodium Level 136 Potassium Level 3.9 Chloride Level 106 Carbon Dioxide Level 18 L Anion Gap 12 Blood Urea Nitrogen 11 Creatinine 1.21 H Est Glomerular Filtrat Rate mL/min 45 L Glucose Level 108 Calcium Level 9.9 Total Bilirubin 0.5 Direct Bilirubin 0.00 Indirect Bilirubin 0.5 Aspartate Amino Transf (AST/SGOT) 30 Alanine Aminotransferase (ALT/SGPT) 23 Alkaline Phosphatase 122 H Total Protein 7.1 Albumin 3.7 Globulin 3.40 H Albumin/Globulin Ratio 1.08 Lipase 64 Urine Color YELLOW Urine Clarity SLIGHTLY CLOUDY A Urine pH 6.0 Urine Specific [place] 1.010 Urine Ketones 1+ H Urine Nitrite NEGATIVE Urine Bilirubin NEGATIVE Urine Urobilinogen NEGATIVE Urine Leukocyte Esterase 2+ H Urine Microscopic RBC 4 Urine Microscopic WBC 17 H Urine Squamous Epithelial Cells MODERATE Urine Bacteria FEW A Urine Hemoglobin NEGATIVE Urine Glucose NEGATIVE Urine Total Protein 2+ H HPI/ROS Admit Date/Time Admit Date/Time Hx of Present Illness Chief complaint: Abdominal cramping, loose stools This is a 64-year-old woman recently admitted for urinary tract infection and discharged on nitrofurantoin presents with multiple complaints including loss of appetite, abdominal cramping, loose stools. Family member was at the bedside suspect symptoms are due to Macrobid use, she states Linsey has been feeling weak and dehydrated. Patient also reports urinary urgency and frequency. Upon review of the previous urine cultures it appears the patient was diagnosed with Klebsiella, she also had Pseudomonas in her stool. Patient denies chest pain or shortness of breath, no fevers or chills, no loss of consciousness, no headache or blurry vision. Allergies: Nitrofurantoin Medications: See HYUN ANGEL Const: As per HPI Eyes : No pain discharge or redness or change in visual acuity ENT: No pain, sore throat, congestion, congestion, dysphagia or discharge Respiratory: No shortness of breath, cough, sputum, wheezing, or pleuritic pain Cardiovascular: No chest pain, palpitation, PND, or edema GI : As per HPI Genitourinary: As per HPI Musculoskeletal: No joint pain, back pain, neck pain, restricted range of motion in neck or joints Skin: No rash, bruising or hives Neuro: No headache, dizziness, syncope, seizure, focal weakness Endocrine: No polyuria, polydipsia, temperature intolerance Psych: No hallucination, depression, anxiety or suicidal ideation PMH/Family/Social Past Medical History Hypertension, diabetes mellitus, hyperlipidemia, history of UTI Medications Current Medications Meropenem/Sodium Chloride 50 ml @ 100 mls/hr Q12 IVPB ; Start 04/23/19 at 21:00; Status UNV Atorvastatin Calcium (Lipitor) 40 mg QHS PO ; Start 04/23/19 at 21:00; Status UNV Clonidine (Catapres) 0.1 mg TID PRN PO ELEVATED BLOOD PRESSURE; Start 04/23/19 at 20:00; Status UNV Escitalopram Oxalate (Lexapro) 10 mg DAILY PO ; Start 04/24/19 at 09:00; Status UNV Pantoprazole (Protonix Tab) 40 mg AC BREAKFAST PO ; Start 04/24/19 at 07:00; Status UNV IV Flush (NS 3 ml) 3 ml PER PROTOCOL IV ; Start 04/23/19 at 20:00; Status UNV Ondansetron HCl (Zofran Inj) 4 mg Q6H PRN IV NAUSEA/VOMITING; Start 04/23/19 at 20:00; Status UNV Acetaminophen (Tylenol Tab) 650 mg Q6H PRN PO .PAIN 1-3 OR TEMP; Start 04/23/19 at 20:00; Status UNV Morphine Sulfate (morphine) 2 mg Q4H PRN IV .SEVERE PAIN 7-10; Start 04/23/19 at 20:00; Status UNV Docusate Sodium (Colace) 100 mg Q12H PRN PO .CONSTIPATION; Start 04/23/19 at 20:00; Status UNV Bisacodyl (Dulcolax) 5 mg DAILY PRN PO .CONSTIPATION; Start 04/23/19 at 20:00; Status UNV Heparin Sodium (Porcine) (Heparin (5000 Units/1ml)) 5,000 unit Q8 SC ; Start 04/23/19 at 22:00; Status UNV Lactobacillus Acidophilus (Florajen3 Capsule) 1 each BID PO ; Start 04/23/19 at 21:00; Status UNV Coded Allergies: nitrofurantoin (Unverified Allergy, Unknown, itching and skin rashes, 04/23/19) Past Surgical History Past Surgical Hx: cholecystectomy, endoscopy, other Family History Significant Family History: no pertinent family hx Social History Alcohol Use: none Smoking Status: Former smoker Drug Use: none Exam/Review of Systems Vital Signs Vitals Vital Signs Date Temp Pulse Resp B/P (MAP) Pulse Ox O2 O2 Flow FiO2 Time Delivery Rate 04/23/19 98.9 82 18 146/44 98 Room Air 18:53 (78) Exam Exam General: Patient is well-developed well-nourished The patient is alert oriented -3 lying comfortably in bed. HEENT: Atraumatic, normocephalic. The pupils are equal, round and reactive. Extr aocular motor are intact Neck: Supple with full range of motion. No rigidity or meningismus Chest: Nontender Lungs: Clear to auscultation bilaterally no crackles rales or wheezing Heart: Normal S1-S2, Regular rhythm and rate. No murmur, S3, or S4 Abdomen: Soft , nontender, nondistended , bowel sounds are present. No guarding no rebound tenderness , No masses or organomegaly. No costovertebral temporal angle mass Extremities: Normal to inspection, no edema no cyanosis Neurologic: Normal mental status, speech normal, cranial nerves II through XII are intact, motor and sensory are intact, no focal weakness ELDER TRAN Apr 23, 2019 20:00
[2019-04-23] MEDS ORDERED: GLUCOSE GEL 15 GRAM TUBE PO PRN ×2 (20:30)
[2019-04-23] MEDS ORDERED: GLUCAGON 1 MG INJ IM PRN (20:30)
[2019-04-23] MEDS ORDERED: DEXTROSE 50% 50 ML SYRINGE IV PRN ×2 (20:30)
[2019-04-23] MEDS ORDERED: GLUCOSE GEL 15 GRAM TUBE BUCCAL PRN (20:30)
[2019-04-23 21:20] VITALS: BP 149/65; PULSE 86; RESP 18
[2019-04-23] MEDS: INSULIN ASPART [NOVOLOG] 3 ML PEN SC SCH (21:30)
[2019-04-23] MEDS: MEROPENEM 1 GM/50ML(PMX) 50 ML IVPB SCH (23:02)
[2019-04-23] MEDS: HEPARIN 5,000 UNIT/1 ML VIAL SC SCH (23:03)
[2019-04-23] MEDS: L ACIDOPHIL/B LACTIS/B LONGUM CAPSULE PO SCH (23:03)
[2019-04-23] MEDS: ATORVASTATIN 40 MG TAB PO SCH (23:03)
[2019-04-23] MEDS: ONDANSETRON 4 MG INJ IV PRN (23:06)
[2019-04-24] MEDS: INSULIN ASPART [NOVOLOG] 3 ML PEN SC SCH ×3 (00:23→21:00)
[2019-04-24 02:00] VITALS: BP 126/58; PULSE 71; RESP 17
[2019-04-24] MEDS ORDERED: ACCU-CHEK XX SCH (02:00)
[2019-04-24] MEDS ORDERED: PENDING SANTYL ORDER FOR WOUND CARE XX PRN (05:00)
[2019-04-24] MEDS: HEPARIN 5,000 UNIT/1 ML VIAL SC SCH ×3 (05:18→21:22)
[2019-04-24 08:21] VITALS: BP 139/63; PULSE 75; RESP 17
[2019-04-24] MEDS: ESCITALOPRAM 10 MG TAB PO SCH (08:52)
[2019-04-24] MEDS: MEROPENEM 1 GM/50ML(PMX) 50 ML IVPB SCH (08:52)
[2019-04-24] MEDS: PANTOPRAZOLE (EC) 40 MG TAB PO SCH (08:53)
[2019-04-24] MEDS: L ACIDOPHIL/B LACTIS/B LONGUM CAPSULE PO SCH ×2 (08:53→21:21)
[2019-04-24] MEDS: ONDANSETRON 4 MG INJ IV PRN (12:15)
[2019-04-24] MEDS: SOD CHLORIDE 0.45% 1,000 ML IV SCH (14:56)
--- NOTE | 2019-04-24 15:05 | PN ---
Date/Time of Note Date/Time of Note DATE: 04/24/19 TIME: 15:05 Objective Vitals Vital Signs Date Temp Pulse Resp B/P (MAP) Pulse Ox O2 O2 Flow FiO2 Time Delivery Rate 04/24/19 98.3 75 17 139/63 98 Room Air 08:21 (88) Intake and Output 04/23/19 04/23/19 04/24/19 1515:00 23:00 07:00 IntakeIntake Total 1050 ml 750 ml BalanceBalance 1050 ml 750 ml Results Result Diagram: 04/24/1952804/24/19528 Medications Medications Current Medications Meropenem/Sodium Chloride 50 ml @ 100 mls/hr Q12 IVPB Last administered on 04/24/19at 08:52; Admin Dose 100 MLS/HR; Start 04/23/19 at 21:00 Atorvastatin Calcium (Lipitor) 40 mg QHS PO Last administered on 04/23/19at 23:03; Admin Dose 40 MG; Start 04/23/19 at 21:00 Clonidine (Catapres) 0.1 mg TID PRN PO ELEVATED BLOOD PRESSURE; Start 04/23/19 at 20:00 Escitalopram Oxalate (Lexapro) 10 mg DAILY PO Last administered on 04/24/19at 08:52; Admin Dose 10 MG; Start 04/24/19 at 09:00 Pantoprazole (Protonix Tab) 40 mg AC BREAKFAST PO Last administered on 9at 08:53; Admin Dose 40 MG; Start 04/24/19 at 07:00 IV Flush (NS 3 ml) 3 ml PER PROTOCOL IV ; Start 04/23/19 at 20:00 Ondansetron HCl (Zofran Inj) 4 mg Q6H PRN IV NAUSEA/VOMITING Last administered on 04/24/19at 12:15; Admin Dose 4 MG; Start 04/23/19 at 20:00 Acetaminophen (Tylenol Tab) 650 mg Q6H PRN PO .PAIN 1-3 OR TEMP; Start 04/23/19 at 20:00 Morphine Sulfate (morphine) 2 mg Q4H PRN IV .SEVERE PAIN 7-10; Start 04/23/19 at 20:00 Docusate Sodium (Colace) 100 mg Q12H PRN PO .CONSTIPATION; Start 04/23/19 at 20:00 Bisacodyl (Dulcolax) 5 mg DAILY PRN PO .CONSTIPATION; Start 04/23/19 at 20:00 Heparin Sodium (Porcine) (Heparin (5000 Units/1ml)) 5,000 unit Q8 SC Last administered on 04/24/19at 14:56; Admin Dose 5,000 UNIT; Start 04/23/19 at 22:00 Lactobacillus Acidophilus (Florajen3 Capsule) 1 each BID PO Last administered on 04/24/19at 08:53; Admin Dose 1 EACH; Start 04/23/19 at 21:00 Miscellaneous Information 1 ea NOTE XX ; Start 04/23/19 at 20:30 Glucose (Glutose) 15 gm Q15M PRN PO DECREASED GLUCOSE; Start 04/23/19 at 20:30 Glucose (Glutose) 22.5 gm Q15M PRN PO DECREASED GLUCOSE; Start 04/23/19 at 20:30 Dextrose (D50w Syringe) 25 ml Q15M PRN IV DECREASED GLUCOSE; Start 04/23/19 at 20:30 Dextrose (D50w Syringe) 50 ml Q15M PRN IV DECREASED GLUCOSE; Start 04/23/19 at 20:30 Glucagon (Glucagen) 1 mg Q15M PRN IM DECREASED GLUCOSE; Start 04/23/19 at 20:30 Glucose (Glutose) 15 gm Q15M PRN BUCCAL DECREASED GLUCOSE; Start 04/23/19 at 20:30 Miscellaneous Information (Pending [facility] Order For Wound Care) This patient munguia... PRN PRN XX WOUND CARE; Start 04/24/19 at 05:00 Famotidine (Pepcid Iv) 20 mg DAILY IV ; Start 04/24/19 at 18:00 Sucralfate (Carafate Susp) 1 gm QID PO ; Start 04/24/19 at 17:00 Diagnostic Test (Pha) (Accu-Chek) 1 ea 02 XX ; Start 04/25/19 at 02:00 Insulin Aspart (Novolog Insulin Pen) NOVOLOG *MILD* ALGORITHM WITH MEALS BEDTIME SC ; Start 04/24/19 at 18:05 Sodium Chloride 1,000 ml @ 50 mls/hr Q20H IV Last administered on 04/24/19at 14:56; Admin Dose 50 MLS/HR; Start 04/24/19 at 14:00 VTE Prophylaxis Risk score (from Nsg)>0 risk: 4 SCD applied (from Nsg): Yes Lines/Catheters IV Catheter Type: Krishna in Place: No Assessment/Plan Hospital Course Subjective Patient states she does not have significant nausea or vomiting at this time however is not hungry, no abdominal pain Objective Physical exam General: Patient is laying in bed and answers questions appropriately Mentation: Patient is alert and oriented 4, Head: Normocephalic atraumatic Eyes: EOMI, pupils reactive to light Neck: Supple, nontender, midline Respiratory: Clear to auscultation bilaterally Cardiovascular: regular rate, no obvious murmurs Gastrointestinal: non-tender to palpation, bowel sounds heard. Neurological: Moves all extremities spontaneously Skin: No new skin lesions Assessment and plan Nausea and vomiting -Stable, patient states that this happened after she took the oral antibiotic at home -Unsure if this is secondary to the antibiotic or if patient has underlying issue, -Change to IV antibiotic -We will try to have some stomach relief with Carafate and Protonix for now -If nausea and vomiting do not resolve, will consult GI -Due to poor oral intake, start some IV fluids Urinary tract infection -Infectious disease on board, patient has not taken medications for the past 2 days, appears patient was discharged on nitrofurantoin -Continue Merrem for now Diarrhea -Pending stool studies -Infectious disease consulted -No diarrhea since admission, will monitor, once again unsure if this is secondary to antibiotic versus other pathology -Patient has no abdominal pain, states only has abdominal pain when she is going to the bathroom however this quickly dissipates once she has defecated, this indicates nonacute pathology. Hypertension -Home meds as needed Diabetes mellitus -We will do insulin sliding scale Dyslipidemia -Continue home medications History of urinary tract infection -Patient has a history of multidrug-resistant UTIs Disposition -Monitor patient nausea and vomiting, continue antibiotics, infectious disease recommendation is appreciated LINDA BOYLE Apr 24, 2019 15:05
[2019-04-24] MEDS ORDERED: MAGNESIUM OXIDE 400 MG TAB PO ONE (15:30)
--- NOTE | 2019-04-24 15:37 | CONS ---
Assessment/Plan Assessment/Plan Hospital Course (Demo Recall) Patient is awake looks comfortable complaining of abdominal pain nausea and diarrhea. No fevers overnight. Urine culture on April 17 grew Klebsiella pneumoniae and E. coli both susceptible to cefotaxime and Ancef also tobramycin Antimicrobials: Merrem Physical examination: Obese well-developed elderly woman who is awake in no distress. Head atraumatic normocephalic sclera nonicteric vehicle mucosa dry neck is obese chest rise symmetrical breath sounds diminished bases heart S1-S2 abdomen soft bowel sounds present extremities without cyanosis Assessment: 1. Recurrent UTI 2. Morbid obesity 3. Diabetes 4. Hypertension 5. Diarrhea, C. difficile negative Plan: Patient is stable, we will change antibiotics to tobramycin, bladder scan to assess for retention Consultation Date/Type/Reason Admit Date/Time Apr 23, 2019 at 18:26 Initial Consult Date Type of Consult id Date/Time of Note DATE: 04/24/19 TIME: 15:36 Exam/Review of Systems Exam Vitals Vital Signs Date Temp Pulse Resp B/P (MAP) Pulse Ox O2 O2 Flow FiO2 Time Delivery Rate 04/24/19 98.3 75 17 139/63 98 Room Air 08:21 (88) Intake and Output 04/23/19 04/23/19 04/24/19 1515:00 23:00 07:00 IntakeIntake Total 1050 ml 750 ml BalanceBalance 1050 ml 750 ml Results Result Diagram: 04/24/19 0529 04/24/19 0529 Results 24hrs Laboratory Tests Test 04/23/19 17:32 04/23/19 18:01 04/24/19 00:22 04/24/19 05:29 White Blood Count 17.6 #H 12.6 #H Red Blood Count 4.28 3.47 L Hemoglobin 11.0 L 8.9 L Hematocrit 35.9 L 29.6 L Mean Corpuscular 83.9 85.3 Volume Mean Corpuscular 25.7 L 25.6 L Hemoglobin Mean Corpuscular 30.6 L 30.1 L Hemoglobin Concen t Red Cell 17.7 H 17.6 H Distribution Width Platelet Count 403 354 Mean Platelet 9.9 9.8 Volume Immature 3.800 H 4.200 H Granulocytes % Neutrophils % 67.6 66.7 Lymphocytes % 16.6 13.9 L Monocytes % 6.5 7.2 Eosinophils % 4.8 7.5 H Basophils % 0.7 0.5 Nucleated Red 0.0 0.0 Blood Cells % Immature 0.660 H 0.530 H Granulocytes # Neutrophils # 11.9 H 8.4 H Lymphocytes # 2.9 1.8 Monocytes # 1.1 H 0.9 Eosinophils # 0.9 H 0.9 H Basophils # 0.1 0.1 Nucleated Red 0.0 0.0 Blood Cells # Sodium Level 136 136 Potassium Level 3.9 3.7 Chloride Level 106 109 Carbon Dioxide 18 L 20 L Level Anion Gap 12 7 Blood Urea 11 11 Nitrogen Creatinine 1.21 H 1.27 H Est Glomerular 45 L 42 L Filtrat Rate mL/min Glucose Level 108 96 Calcium Level 9.9 9.0 Total Bilirubin 0.5 0.4 Direct Bilirubin 0.00 0.00 Indirect 0.5 0.4 Bilirubin Aspartate Amino 30 19 Transf (AST/SGOT) Alanine 23 19 Aminotransferase (ALT/SGPT) Alkaline 122 H 93 Phosphatase Total Protein 7.1 5.6 #L Albumin 3.7 2.8 L Globulin 3.40 H 2.80 Albumin/Globulin 1.08 1.00 Ratio Lipase 64 Urine Color YELLOW Urine Clarity SLIGHTLY CLOUDY A Urine pH 6.0 Urine Specific 1.010 [place] Urine Ketones 1+ H Urine Nitrite NEGATIVE Urine Bilirubin NEGATIVE Urine NEGATIVE Urobilinogen Urine Leukocyte 2+ H Esterase Urine Microscopic 4 RBC Urine Microscopic 17 H WBC Urine Squamous MODERATE Epithelial Cells Urine Bacteria FEW A Urine Hemoglobin NEGATIVE Urine Glucose NEGATIVE Urine Total 2+ H Protein Bedside Glucose 126 Magnesium Level 1.6 L Medications Medication Current Medications Meropenem/Sodium Chloride 50 ml @ 100 mls/hr Q12 IVPB Last administered on 04/24/19at 08:52; Admin Dose 100 MLS/HR; Start 04/23/19 at 21:00 Atorvastatin Calcium (Lipitor) 40 mg QHS PO Last administered on 04/23/19at 23:03; Admin Dose 40 MG; Start 04/23/19 at 21:00 Clonidine (Catapres) 0.1 mg TID PRN PO ELEVATED BLOOD PRESSURE; Start 04/23/19 at 20:00 Escitalopram Oxalate (Lexapro) 10 mg DAILY PO Last administered on 04/24/19at 08:52; Admin Dose 10 MG; Start 04/24/19 at 09:00 Pantoprazole (Protonix Tab) 40 mg AC BREAKFAST PO Last administered on 04/24/19at 08:53; Admin Dose 40 MG; Start 04/24/19 at 07:00 IV Flush (NS 3 ml) 3 ml PER PROTOCOL IV ; Start 04/23/19 at 20:00 Ondansetron HCl (Zofran Inj) 4 mg Q6H PRN IV NAUSEA/VOMITING Last administered on 04/24/19at 12:15; Admin Dose 4 MG; Start 04/23/19 at 20:00 Acetaminophen (Tylenol Tab) 650 mg Q6H PRN PO .PAIN 1-3 OR TEMP; Start 04/23/19 at 20:00 Morphine Sulfate (morphine) 2 mg Q4H PRN IV .SEVERE PAIN 7-10; Start 04/23/19 at 20:00 Docusate Sodium (Colace) 100 mg Q12H PRN PO .CONSTIPATION; Start 04/23/19 at 20:00 Bisacodyl (Dulcolax) 5 mg DAILY PRN PO .CONSTIPATION; Start 04/23/19 at 20:00 Heparin Sodium (Porcine) (Heparin (5000 Units/1ml)) 5,000 unit Q8 SC Last administered on 04/24/19at 14:56; Admin Dose 5,000 UNIT; Start 04/23/19 at 22:00 Lactobacillus Acidophilus (Florajen3 Capsule) 1 each BID PO Last administered on 04/24/19at 08:53; Admin Dose 1 EACH; Start 04/23/19 at 21:00 Miscellaneous Information 1 ea NOTE XX ; Start 04/23/19 at 20:30 Glucose (Glutose) 15 gm Q15M PRN PO DECREASED GLUCOSE; Start 04/23/19 at 20:30 Glucose (Glutose) 22.5 gm Q15M PRN PO DECREASED GLUCOSE; Start 04/23/19 at 20:30 Dextrose (D50w Syringe) 25 ml Q15M PRN IV DECREASED GLUCOSE; Start 04/23/19 at 20:30 Dextrose (D50w Syringe) 50 ml Q15M PRN IV DECREASED GLUCOSE; Start 04/23/19 at 20:30 Glucagon (Glucagen) 1 mg Q15M PRN IM DECREASED GLUCOSE; Start 04/23/19 at 20:30 Glucose (Glutose) 15 gm Q15M PRN BUCCAL DECREASED GLUCOSE; Start 04/23/19 at 20:30 Miscellaneous Information [facility] This patient munguia... PRN PRN XX WOUND CARE; Start 04/24/19 at 05:00 Famotidine (Pepcid Iv) 20 mg DAILY IV ; Start 04/24/19 at 18:00 Sucralfate (Carafate Susp) 1 gm QID PO ; Start 04/24/19 at 17:00 Diagnostic Test (Pha) (Accu-Chek) 1 ea 02 XX ; Start 04/25/19 at 02:00 Insulin Aspart (Novolog Insulin Pen) NOVOLOG *MILD* ALGORITHM WITH MEALS BEDTIME SC ; Start 04/24/19 at 18:05 Sodium Chloride 1,000 ml @ 50 mls/hr Q20H IV Last administered on 04/24/19at 14:56; Admin Dose 50 MLS/HR; Start 04/24/19 at 14:00 ANA MARIA ZULETA NP Apr 24, 2019 15:37
[2019-04-24] MEDS ORDERED: TOBRAMYCIN IV PER PHARMACY XX SCH (16:00)
[2019-04-24] MEDS: SUCRALFATE (100 MG/ML) 10ML CUP PO SCH ×2 (17:36→21:21)
[2019-04-24] MEDS: FAMOTIDINE 20 MG INJ IV SCH (17:36)
[2019-04-24] MEDS: TOBRAMYCIN 80 MG in SOD CHLORIDE 0.9% 50 ML IVPB SCH (18:46)
[2019-04-24 19:30] VITALS: BP 170/70; PULSE 84; RESP 16
[2019-04-24 21:00] VITALS: BP 136/62
[2019-04-24] MEDS: ATORVASTATIN 40 MG TAB PO SCH (21:21)
[2019-04-24] MEDS: NYSTATIN 30 GM POWDER BTL TOP SCH (21:21)
[2019-04-25] MEDS: ACCU-CHEK XX SCH (00:41)
[2019-04-25 02:50] VITALS: BP 135/63; PULSE 71; RESP 16
[2019-04-25] MEDS: HEPARIN 5,000 UNIT/1 ML VIAL SC SCH ×3 (05:57→23:14)
[2019-04-25 07:27] VITALS: BP 137/63; PULSE 72; RESP 18
[2019-04-25] MEDS: INSULIN ASPART [NOVOLOG] 3 ML PEN SC SCH ×4 (08:00→20:28)
[2019-04-25] MEDS: PANTOPRAZOLE (EC) 40 MG TAB PO SCH (08:09)
[2019-04-25] MEDS: L ACIDOPHIL/B LACTIS/B LONGUM CAPSULE PO SCH ×2 (08:45→20:28)
[2019-04-25] MEDS: FAMOTIDINE 20 MG INJ IV SCH (08:45)
[2019-04-25] MEDS: morphine 2 MG INJ IV PRN ×2 (08:45→12:27)
[2019-04-25] MEDS: ESCITALOPRAM 10 MG TAB PO SCH (08:46)
[2019-04-25] MEDS: SOD CHLORIDE 0.45% 1,000 ML IV SCH ×2 (10:00→11:04)
[2019-04-25] MEDS: NYSTATIN 30 GM POWDER BTL TOP SCH ×2 (10:58→20:28)
[2019-04-25] MEDS: SUCRALFATE (100 MG/ML) 10ML CUP PO SCH ×4 (10:58→20:27)
--- NOTE | 2019-04-25 12:49 | PN ---
Date/Time of Note Date/Time of Note DATE: 04/25/19 TIME: 12:48 Objective Vitals Vital Signs Date Temp Pulse Resp B/P (MAP) Pulse Ox O2 O2 Flow FiO2 Time Delivery Rate 04/25/19 98.2 72 18 137/63 98 Room Air 07:27 (87) Intake and Output 04/24/19 04/24/19 04/25/19 1515:00 23:00 07:00 IntakeIntake Total 50 ml 1062 ml 600 ml BalanceBalance 50 ml 1062 ml 600 ml Results Result Diagram: 04/25/192 04/25/19441 Medications Medications Current Medications Atorvastatin Calcium (Lipitor) 40 mg QHS PO Last administered on 04/24/19at 21:21; Admin Dose 40 MG; Start 04/23/19 at 21:00 Clonidine (Catapres) 0.1 mg TID PRN PO ELEVATED BLOOD PRESSURE Last administered on 04/24/19at 21:25; Admin Dose 0.1 MG; Start 04/23/19 at 20:00 Escitalopram Oxalate (Lexapro) 10 mg DAILY PO Last administered on 04/25/19at 08:46; Admin Dose 10 MG; Start 04/24/19 at 09:00 Pantoprazole (Protonix Tab) 40 mg AC BREAKFAST PO Last administered on 04/25/19at 08:09; Admin Dose 40 MG; Start 04/24/19 at 07:00 IV Flush (NS 3 ml) 3 ml PER PROTOCOL IV ; Start 04/23/19 at 20:00 Ondansetron HCl (Zofran Inj) 4 mg Q6H PRN IV NAUSEA/VOMITING Last administered on 04/24/19at 12:15; Admin Dose 4 MG; Start 04/23/19 at 20:00 Acetaminophen (Tylenol Tab) 650 mg Q6H PRN PO .PAIN 1-3 OR TEMP; Start 04/23/19 at 20:00 Morphine Sulfate (morphine) 2 mg Q4H PRN IV .SEVERE PAIN 7-10 Last administered on 04/25/19at 12:27; Admin Dose 2 MG; Start 04/23/19 at 20:00 Docusate Sodium (Colace) 100 mg Q12H PRN PO .CONSTIPATION; Start 04/23/19 at 20:00 Bisacodyl (Dulcolax) 5 mg DAILY PRN PO .CONSTIPATION; Start 04/23/19 at 20:00 Heparin Sodium (Porcine) (Heparin (5000 Units/1ml)) 5,000 unit Q8 SC Last administered on 04/25/19at 05:57; Admin Dose 5,000 UNIT; Start 04/23/19 at 22:00 Lactobacillus Acidophilus (Florajen3 Capsule) 1 each BID PO Last administered on 04/25/19at 08:45; Admin Dose 1 EACH; Start 04/23/19 at 21:00 Miscellaneous Information 1 ea NOTE XX ; Start 04/23/19 at 20:30 Glucose (Glutose) 15 gm Q15M PRN PO DECREASED GLUCOSE; Start 04/23/19 at 20:30 Glucose (Glutose) 22.5 gm Q15M PRN PO DECREASED GLUCOSE; Start 04/23/19 at 2 0:30 Dextrose (D50w Syringe) 25 ml Q15M PRN IV DECREASED GLUCOSE; Start 04/23/19 at 20:30 Dextrose (D50w Syringe) 50 ml Q15M PRN IV DECREASED GLUCOSE; Start 04/23/19 at 20:30 Glucagon (Glucagen) 1 mg Q15M PRN IM DECREASED GLUCOSE; Start 04/23/19 at 20:30 Glucose (Glutose) 15 gm Q15M PRN BUCCAL DECREASED GLUCOSE; Start 04/23/19 at 20:30 Miscellaneous Information (Pending [facility] Order For Wound Care) This patient munguia... PRN PRN XX WOUND CARE; Start 04/24/19 at 05:00 Famotidine (Pepcid Iv) 20 mg DAILY IV Last administered on 04/25/19at 08:45; Admin Dose 20 MG; Start 04/24/19 at 18:00 Sucralfate (Carafate Susp) 1 gm QID PO Last administered on 04/25/19at 12:27; Admin Dose 1 GM; Start 04/24/19 at 17:00 Diagnostic Test (Pha) (Accu-Chek) 1 ea 02 XX ; Start 04/25/19 at 02:00 Insulin Aspart (Novolog Insulin Pen) NOVOLOG *MILD* ALGORITHM WITH MEALS BEDTIME SC ; Start 04/24/19 at 18:05 Sodium Chloride 1,000 ml @ 50 mls/hr Q20H IV Last administered on 04/25/19at 11:04; Admin Dose 50 MLS/HR; Start 04/24/19 at 14:00 Tobramycin (Tobramycin Iv Per Pharmacy) TOBRAMYCIN PER PHARMACY NOTE XX ; Start 04/24/19 at 16:00 Tobramycin 80 mg/ Sodium Chloride 52 ml @ 104 mls/hr Q24H IVPB Last administ ered on 04/24/19at 18:46; Admin Dose 104 MLS/HR; Start 04/24/19 at 17:00 Miscellaneous Information (*Rx Drug Level Order Reminder*) TOBRAMYCIN TROUGH LEVEL... 1630 ONCE XX ; Start 04/26/19 at 16:30; Stop 04/26/19 at 16:31 Nystatin (Nystatin Powder) 1 applic BID TOP Last administered on 04/25/19at 10 :58; Admin Dose 1 APPLIC; Start 04/24/19 at 21:00 VTE Prophylaxis [place] [facility] [place] risk: 3 SCD applied [place] [facility] [place] Yes Lines/Catheters IV Catheter Type: Krishna in Place: No Assessment/Plan Hospital Course Subjective Patient states she still has stomach issues that come and go Objective Physical exam General: Patient is laying in bed and answers questions appropriately Mentation: Patient is alert and oriented 4, Head: Normocephalic atraumatic Eyes: EOMI, pupils reactive to light Neck: Supple, nontender, midline Respiratory: Clear to auscultation bilaterally Cardiovascular: regular rate, no obvious murmurs Gastrointestinal: non-tender to palpation, bowel sounds heard. Neurological: Moves all extremities spontaneously Skin: No new skin lesions Assessment and plan Nausea and vomiting -Stable, patient states that this happened after she took the oral antibiotic at home -Unsure if this is secondary to the antibiotic or if patient has underlying issue, -Change to IV antibiotic -We will try to have some stomach relief with Carafate and Protonix for now -If nausea and vomiting do not resolve, will consult GI -Due to poor oral intake, start some IV fluids Urinary tract infection -Infectious disease on board, patient has not taken medications for the past 2 days, appears patient was discharged on nitrofurantoin -Continue abx for now Diarrhea -Pending stool studies, c dif neg -Infectious disease consulted -No diarrhea since admission, will monitor, once again unsure if this is secondary to antibiotic versus other pathology -Patient has no abdominal pain, states only has abdominal pain when she is going to the bathroom however this quickly dissipates once she has defecated, this indicates nonacute pathology. Hypertension -Home meds as needed Diabetes mellitus -We will do insulin sliding scale Dyslipidemia -Continue home medications History of urinary tract infection -Patient has a history of multidrug-resistant UTIs Disposition -Monitor patient nausea and vomiting, continue antibiotics, infectious disease recommendation is appreciated -if no resolution of GI issues, will consult GI tomorrow LINDA BOYLE Apr 25, 2019 12:49
--- NOTE | 2019-04-25 15:05 | CONS ---
Assessment/Plan Assessment/Plan Hospital Course (Demo Recall) Patient is awake looks comfortable c. No fevers overnight. Urine culture on April 17 grew Klebsiella pneumoniae and E. coli both susceptible to cefotaxime and Ancef also tobramycin Antimicrobials: Tobramycin Physical examination: Obese well-developed elderly woman who is awake in no dist ress. Head atraumatic normocephalic sclera nonicteric vehicle mucosa dry neck is obese chest rise symmetrical breath sounds diminished bases heart S1-S2 abdomen soft bowel sounds present extremities without cyanosis Assessment: 1. Recurrent UTI 2. Morbid obesity 3. Diabetes 4. Hypertension 5. Diarrhea, C. difficile negative Plan: Patient is stable, no retention per bladder scan, continue antibiotics, PPI's Consultation Date/Type/Reason Admit Date/Time Apr 23, 2019 at 18:26 Initial Consult Date Type of Consult id Date/Time of Note DATE: 04/25/19 TIME: 15:04 Exam/Review of Systems Exam Vitals Vital Signs Date Temp Pulse Resp B/P (MAP) Pulse Ox O2 O2 Flow FiO2 Time Delivery Rate 04/25/19 98.2 72 18 137/63 98 Room Air 07:27 (87) Intake and Output 04/24/19 04/24/19 04/25/19 1515:00 23:00 07:00 IntakeIntake Total 50 ml 1062 ml 600 ml BalanceBalance 50 ml 1062 ml 600 ml Results Result Diagram: 04/25/19 0442 04/25/19 0442 Results 24hrs Laboratory Tests Test 04/24/19 17:34 04/24/19 21:20 04/25/19 04:42 04/25/19 08:08 Bedside Glucose 98 99 99 White Blood Count 13.2 H Red Blood Count 3.53 L Hemoglobin 9.0 L Hematocrit 30.3 L Mean Corpuscular 85.8 Volume Mean Corpuscular 25.5 L Hemoglobin Mean Corpuscular 29.7 L Hemoglobin Concent Red Cell 17.8 H Distribution Width Platelet Count 342 Mean Platelet Volume 10.2 Immature 4.300 H Granulocytes % Neutrophils % 71.5 Lymphocytes % 10.2 L Monocytes % 6.3 Eosinophils % 7.2 H Basophils % 0.5 Nucleated Red Blood 0.0 Cells % Immature 0.570 H Granulocytes # Neutrophils # 9.4 H Lymphocytes # 1.4 Monocytes # 0.8 Eosinophils # 1.0 H Basophils # 0.1 Nucleated Red Blood 0.0 Cells # Sodium Level 133 L Potassium Level 3.8 Chloride Level 106 Carbon Dioxide Level 22 Anion Gap 5 Blood Urea Nitrogen 9 Creatinine 1.06 H Est Glomerular 52 L Filtrat Rate mL/min Glucose Level 103 Calcium Level 8.9 Phosphorus Level 2.7 Magnesium Level 1.7 Test 04/25/19 12:26 Bedside Glucose 98 Medications Medication Current Medications Atorvastatin Calcium (Lipitor) 40 mg QHS PO Last administered on 04/24/19 21:21; Admin Dose 40 MG; Start 04/23/19 at 21:00 Clonidine (Catapres) 0.1 mg TID PRN PO ELEVATED BLOOD PRESSURE Last administered on 04/24/19 21:25; Admin Dose 0.1 MG; Start 04/23/19 at 20:00 Escitalopram Oxalate (Lexapro) 10 mg DAILY PO Last administered on 04/25/19 08:46; Admin Dose 10 MG; Start 04/24/19 at 09:00 Pantoprazole (Protonix Tab) 40 mg AC BREAKFAST PO Last administered on 04/25/19 08:09; Admin Dose 40 MG; Start 04/24/19 at 07:00 IV Flush (NS 3 ml) 3 ml PER PROTOCOL IV ; Start 04/23/19 at 20:00 Ondansetron HCl (Zofran Inj) 4 mg Q6H PRN IV NAUSEA/VOMITING Last administered on 04/24/19 12:15; Admin Dose 4 MG; Start 04/23/19 at 20:00 Acetaminophen (Tylenol Tab) 650 mg Q6H PRN PO .PAIN 1-3 OR TEMP; Start 04/23/19 at 20:00 Morphine Sulfate (morphine) 2 mg Q4H PRN IV .SEVERE PAIN 7-10 Last administered on 04/25/19 12:27; Admin Dose 2 MG; Start 04/23/19 at 20:00 Docusate Sodium (Colace) 100 mg Q12H PRN PO .CONSTIPATION; Start 04/23/19 at 2 0:00 Bisacodyl (Dulcolax) 5 mg DAILY PRN PO .CONSTIPATION; Start 04/23/19 at 20:00 Heparin Sodium (Porcine) (Heparin (5000 Units/1ml)) 5,000 unit Q8 SC Last administered on 04/25/19at 05:57; Admin Dose 5,000 UNIT; Start 04/23/19 at 22:00 Lactobacillus Acidophilus (Florajen3 Capsule) 1 each BID PO Last administered on 04/25/19at 08:45; Admin Dose 1 EACH; Start 04/23/19 at 21:00 Miscellaneous Information 1 ea NOTE XX ; Start 04/23/19 at 20:30 Glucose (Glutose) 15 gm Q15M PRN PO DECREASED GLUCOSE; Start 04/23/19 at 20:30 Glucose (Glutose) 22.5 gm Q15M PRN PO DECREASED GLUCOSE; Start 04/23/19 at 20:30 Dextrose (D50w Syringe) 25 ml Q15M PRN IV DECREASED GLUCOSE; Start 04/23/19 at 20:30 Dextrose (D50w Syringe) 50 ml Q15M PRN IV DECREASED GLUCOSE; Start 04/23/19 at 20:30 Glucagon (Glucagen) 1 mg Q15M PRN IM DECREASED GLUCOSE; Start 04/23/19 at 20:30 Glucose (Glutose) 15 gm Q15M PRN BUCCAL DECREASED GLUCOSE; Start 04/23/19 at 20:30 Misc[facility] This patient munguia... PRN PRN XX WOUND CARE; Start 04/24/19 at 05:00 Famotidine (Pepcid Iv) 20 mg DAILY IV Last administered on 04/25/19at 08:45; Admin Dose 20 MG; Start 04/24/19 at 18:00 Sucralfate (Carafate Susp) 1 gm QID PO Last administered on 04/25/19at 12:27; Admin Dose 1 GM; Start 04/24/19 at 17:00 Diagnostic Test (Pha) (Accu-Chek) 1 ea 02 XX ; Start 04/25/19 at 02:00 Insulin Aspart (Novolog Insulin Pen) NOVOLOG *MILD* ALGORITHM WITH MEALS BEDTIME SC ; Start 04/24/19 at 18:05 Sodium Chloride 1,000 ml @ 50 mls/hr Q20H IV Last administered on 04/25/19at 11:04; Admin Dose 50 MLS/HR; Start 04/24/19 at 14:00 Tobramycin (Tobramycin Iv Per Pharmacy) TOBRAMYCIN PER PHARMACY NOTE XX ; Start 04/24/19 at 16:00 Tobramycin 80 mg/ Sodium Chloride 52 ml @ 104 mls/hr Q24H IVPB Last admi nistered on 04/24/19at 18:46; Admin Dose 104 MLS/HR; Start 04/24/19 at 17:00 Miscellaneous Information (*Rx Drug Level Order Reminder*) TOBRAMYCIN TROUGH LEVEL... 1630 ONCE XX ; Start 04/26/19 at 16:30; Stop 04/26/19 at 16:31 Nystatin (Nystatin Powder) 1 applic BID TOP Last administered on 04/25/19at 10:58; Admin Dose 1 APPLIC; Start 04/24/19 at 21:00 Miscellaneous Information (*Rx Drug Level Order Reminder*) TOBRAMYCIN PEAK 30 ADARSH... 1800 ONCE XX ; Start 04/26/19 at 18:00; Stop 04/26/19 at 18:01 ANA MARIA ZULETA NP Apr 25, 2019 15:05
[2019-04-25] MEDS: TOBRAMYCIN 80 MG in SOD CHLORIDE 0.9% 50 ML IVPB SCH (16:54)
[2019-04-25 19:33] VITALS: BP 171/77; PULSE 68; RESP 18
[2019-04-25] MEDS: ATORVASTATIN 40 MG TAB PO SCH (20:27)
[2019-04-26 01:59] VITALS: BP 147/71; PULSE 65; RESP 16
[2019-04-26] MEDS: ACCU-CHEK XX SCH (02:00)
[2019-04-26] MEDS: SOD CHLORIDE 0.45% 1,000 ML IV SCH ×2 (05:23→23:44)
[2019-04-26] MEDS: HEPARIN 5,000 UNIT/1 ML VIAL SC SCH ×3 (05:24→21:13)
[2019-04-26 07:59] VITALS: BP 139/65; PULSE 60; RESP 18
[2019-04-26] MEDS: INSULIN ASPART [NOVOLOG] 3 ML PEN SC SCH ×4 (08:00→20:32)
[2019-04-26] MEDS: PANTOPRAZOLE (EC) 40 MG TAB PO SCH (08:55)
[2019-04-26] MEDS: FAMOTIDINE 20 MG INJ IV SCH ×2 (08:55→20:31)
[2019-04-26] MEDS: ESCITALOPRAM 10 MG TAB PO SCH (08:55)
[2019-04-26] MEDS: NYSTATIN 30 GM POWDER BTL TOP SCH ×2 (08:55→20:33)
[2019-04-26] MEDS: L ACIDOPHIL/B LACTIS/B LONGUM CAPSULE PO SCH ×2 (08:55→20:31)
[2019-04-26] MEDS: SUCRALFATE (100 MG/ML) 10ML CUP PO SCH ×4 (08:55→20:31)
--- NOTE | 2019-04-26 10:54 | CONS ---
Assessment/Plan Assessment/Plan Hospital Course (Demo Recall) All noted, no acute events over night, looks comfortable, no fevers Urine culture on April 17 grew Klebsiella pneumoniae and E. coli both susceptible to cefotaxime and Ancef also tobramycin Antimicrobials: Tobramycin Physical examination: Obese well-developed elderly woman who is awake in no distress. Head atraumatic normocephalic sclera nonicteric vehicle mucosa dry neck is obese chest rise symmetrical breath sounds diminished bases heart S1-S2 abdomen soft bowel sounds present extremities without cyanosis Assessment: 1. Recurrent UTI 2. Morbid obesity 3. Diabetes 4. Hypertension 5. Diarrhea, C. difficile negative Plan: Stable, wbc trending down, no retention per bladder scan, continue antibiotics, PPI's Consultation Date/Type/Reason Admit Date/Time Apr 23, 2019 at 18:26 Initial Consult Date Type of Consult id Date/Time of Note DATE: 04/26/19 TIME: 10:53 Exam/Review of Systems Exam Vitals Vital Signs Date Temp Pulse Resp B/P (MAP) Pulse Ox O2 O2 Flow FiO2 Time Delivery Rate 04/26/19 98.2 60 18 139/65 100 Room Air 07:59 (89) Intake and Output 04/25/19 04/25/19 04/26/19 1515:00 23:00 07:00 IntakeIntake Total 800 ml 930 ml 650 ml BalanceBalance 800 ml 930 ml 650 ml Results Result Diagram: 04/26/19 0712 04/26/19 0712 Results 24hrs Laboratory Tests Test 04/25/19 12:26 04/25/19 17:38 04/25/19 20:26 04/26/19 07:12 Bedside Glucose 98 99 103 White Blood Count 10.3 # Red Blood Count 3.52 L Hemoglobin 9.1 L Hematocrit 30.1 L Mean Corpuscular 85.5 Volume Mean Corpuscular 25.9 L Hemoglobin Mean Corpuscular 30.2 L Hemoglobin Concent Red Cell 17.4 H Distribution Width Platelet Count 374 Mean Platelet Volume 9.7 Immature 5.300 H Granulocytes % Neutrophils % Segmented 64 Neutrophils % (Manual) Lymphocytes % Lymphocytes % 25 (Manual) Monocytes % Monocytes % (Manual) 2 Eosinophils % Eosinophils % 6 (Manual) Basophils % Myelocytes % 3 H (Manual) Nucleated Red Blood 0.0 Cells % Immature 0.550 H Granulocytes # Neutrophils # Lymphocytes (Manual) 2.5 Lymphocytes # Monocytes # Monocytes # (Manual) 0.2 L Eosinophils # Basophils # Myelocytes # 0.3 H Nucleated Red Blood Cells # Platelet Estimate NORMAL Anisocytosis 1+ Microcytosis 1+ Sodium Level 136 Potassium Level 4.0 Chloride Level 108 Carbon Dioxide Level 24 Anion Gap 4 L Blood Urea Nitrogen 8 Creatinine 0.99 Est Glomerular 56 L Filtrat Rate mL/min Glucose Level 109 Calcium Level 8.9 Phosphorus Level 2.7 Magnesium Level 1.7 Test 04/26/19 08:08 Bedside Glucose 110 Medications Medication Current Medications Atorvastatin Calcium (Lipitor) 40 mg QHS PO Last administered on 04/25/19 20:27; Admin Dose 40 MG; Start 04/23/19 at 21:00 Clonidine (Catapres) 0.1 mg TID PRN PO ELEVATED BLOOD PRESSURE Last administered on 04/25/19 20:28; Admin Dose 0.1 MG; Start 04/23/19 at 20:00 Escitalopram Oxalate (Lexapro) 10 mg DAILY PO Last administered on 04/26/19 08:55; Admin Dose 10 MG; Start 04/24/19 at 09:00 Pantoprazole (Protonix Tab) 40 mg AC BREAKFAST PO Last administered on 04/26/19 08:55; Admin Dose 40 MG; Start 04/24/19 at 07:00 IV Flush (NS 3 ml) 3 ml PER PROTOCOL IV ; Start 04/23/19 at 20:00 Ondansetron HCl (Zofran Inj) 4 mg Q6H PRN IV NAUSEA/VOMITING Last administered on 04/24/19at 12:15; Admin Dose 4 MG; Start 04/23/19 at 20:00 Acetaminophen (Tylenol Tab) 650 mg Q6H PRN PO .PAIN 1-3 OR TEMP; Start 04/23/19 at 20:00 Morphine Sulfate (morphine) 2 mg Q4H PRN IV .SEVERE PAIN 7-10 Last administered on 04/25/19at 12:27; Admin Dose 2 MG; Start 04/23/19 at 20:00 Docusate Sodium (Colace) 100 mg Q12H PRN PO .CONSTIPATION; Start 04/23/19 at 20:00 Bisacodyl (Dulcolax) 5 mg DAILY PRN PO .CONSTIPATION; Start 04/23/19 at 20:00 Heparin Sodium (Porcine) (Heparin (5000 Units/1ml)) 5,000 unit Q8 SC Last administered on 04/26/19at 05:24; Admin Dose 5,000 UNIT; Start 04/23/19 at 22:00 Lactobacillus Acidophilus (Florajen3 Capsule) 1 each BID PO Last administered on 04/26/19at 08:55; Admin Dose 1 EACH; Start 04/23/19 at 21:00 Miscellaneous Information 1 ea NOTE XX ; Start 04/23/19 at 20:30 Glucose (Glutose) 15 gm Q15M PRN PO DECREASED GLUCOSE; Start 04/23/19 at 20:30 Glucose (Glutose) 22.5 gm Q15M PRN PO DECREASED GLUCOSE; Start 04/23/19 at 20:30 Dextrose (D50w Syringe) 25 ml Q15M PRN IV DECREASED GLUCOSE; Start 04/23/19 at 20:30 Dextrose (D50w Syringe) 50 ml Q15M PRN IV DECREASED GLUCOSE; Start 04/23/19 at 20:30 Glucagon (Glucagen) 1 mg Q15M PRN IM DECREASED GLUCOSE; Start 04/23/19 at 20:30 Glucose (Glutose) 15 gm Q15M PRN BUCCAL DECREASED GLUCOSE; Start 04/23/19 at 20:30 Miscellaneous Information (Pending [facility] Order For Wound Care) This patient munguia... PRN PRN XX WOUND CARE; Start 04/24/19 at 05:00 Famotidine (Pepcid Iv) 20 mg DAILY IV Last administered on 04/26/19at 08:55; Admin Dose 20 MG; Start 04/24/19 at 18:00 Sucralfate (Carafate Susp) 1 gm QID PO Last administered on 04/26/19at 08:55; Admin Dose 1 GM; Start 04/24/19 at 17:00 Diagnostic Test (Pha) (Accu-Chek) 1 ea 02 XX ; Start 04/25/19 at 02:00 Insulin Aspart (Novolog Insulin Pen) NOVOLOG *MILD* ALGORITHM WITH MEALS BEDTIME SC ; Start 04/24/19 at 18:05 Sodium Chloride 1,000 ml @ 50 mls/hr Q20H IV Last administered on 04/26/19at 05:23; Admin Dose 50 MLS/HR; Start 04/24/19 at 14:00 Tobramycin (Tobramycin Iv Per Pharmacy) TOBRAMYCIN PER PHARMACY NOTE XX ; Start 04/24/19 at 16:00 Tobramycin 80 mg/ Sodium Chloride 52 ml @ 104 mls/hr Q24H IVPB Last administered on 04/25/19at 16:54; Admin Dose 104 MLS/HR; Start 04/24/19 at 17:00 Miscellaneous Information (*Rx Drug Level Order Reminder*) TOBRAMYCIN TROUGH LEVEL... 1630 ONCE XX ; Start 04/26/19 at 16:30; Stop 04/26/19 at 16:31 Nystatin (Nystatin Powder) 1 applic BID TOP Last administered on 04/26/19at 08:55; Admin Dose 1 APPLIC; Start 04/24/19 at 21:00 Miscellaneous Information (*Rx Drug Level Order Reminder*) TOBRAMYCIN PEAK 30 ADARSH... 1800 ONCE XX ; Start 04/26/19 at 18:00; Stop 04/26/19 at 18:01 ANA MARIA ZULETA NP Apr 26, 2019 10:54
--- NOTE | 2019-04-26 12:40 | CONS ---
Assessment/Plan Assessment/Plan Hospital Course (Demo Recall) Summary Assessment and Plan: Assessment: Nausea/vomiting -Iatrogenic versus gastritis versus other Diarrhea -Iatrogenic versus IBS versus other Normocytic anemia Abdominal cramping- improved UTI currently on antibiotics DM Dyslipidemia Pretension Plan: Currently patient symptoms have improved- she continues to c/o some nausea- will add Reglan 5 mg IV q6hr OTC- If symptoms to not improve by tomorrow will start prep and plan to proceed with EGD/colonoscopy on Wednesday Continue PPI/H2 chris Patient seen in collaboration with Dr. Vasquez CC: CESARIO VASQUEZ MD ; Consultation Date/Type/Reason Admit Date/Time Apr 23, 2019 at 18:26 Date of Consultation: Apr 26, 2019 Type of Consult GI Reason for Consultation N/v, diarrhea Date/Time of Note DATE: 04/26/19 TIME: 12:38 Hx of Present Illness This is a 64-year-old female with past medical history of recent UTI, hypertension, diabetes mellitus, hyperlipidemia, cholecystectomy subsequently led to poor appetite and placement of PEG tube which was removed in 2016, who was recently hospitalized for complaints of diarrhea and vomiting diagnosed with a UTI treated with antibiotics and sent home she read presents with complaints of poor appetite, abdominal cramping, loose stools and felt treatment to previous UTI. During hospitalization patient was started on antibiotics as well as PPI, sucralfate, and probiotics however symptoms of nausea/vomiting and diarrhea persist GI has been consulted for further evaluation stool studies have been obtained showing negative C. difficile stool cultures positive for Dina, and fecal leukocytes show negative fecal leukocytes. She is unable to tolerate solid p.o. intake but can tolerate clear liquids. Currently patient states her nausea has improved she denies vomiting today and has had one episode of watery diarrhea with noted mucus patient states she is never had a colonoscopy and last upper endoscopy was at time of PEG placement. Review of Systems: A 12 system, review was conducted and is negative except as noted in the HPI or here. Past Medical History Home Meds Reported Medications Atorvastatin* (Atorvastatin*) 40 Mg Tablet, 40 MG PO QHS, #30 TAB 04/23/19 Escitalopram Oxalate* (Escitalopram Oxalate*) 10 Mg Tablet, 10 MG PO NEEDED, #30 TAB 04/23/19 Pantoprazole* (Pantoprazole*) 40 Mg Tablet.dr, 40 MG PO AC BREAKFAST, TAB 04/23/19 Glimepiride* (Glimepiride*) 1 Mg Tablet, 1 MG PO WITH BREAKFAST PRN for NEEDED, TAB 04/23/19 Clonidine Hcl* (Clonidine Hcl*) 0.1 Mg Tab, 0.1 MG PO TID, TAB 04/23/19 Discontinued Reported Medications Atorvastatin* (Atorvastatin*) 40 Mg Tablet, 40 MG PO QHS, #30 TAB 04/18/19 Atorvastatin Calcium* (Atorvastatin Calcium*) 20 Mg Tablet, 20 MG PO QHS, #30 TAB 04/18/19 Furosemide* (Furosemide*) 20 Mg Tablet, 20 MG PO BID for 30 Days, #60 04/18/19 Discontinued Scripts Ondansetron Hcl* (Ondansetron Hcl*) 4 Mg Tablet, 4 MG PO Q6H PRN for NAUSEA, #8 TAB Prov:NOEMÍ TAPIA MD 04/21/19 Nitrofurantoin Macrocrystal* (Nitrofurantoin Macrocrystal*) 100 Mg Capsule, 100 MG PO BID for 5 Days, #10 CAP Prov:NOEMÍ TAPIA MD 04/21/19 Clonidine Hcl* (Clonidine Hcl*) 0.1 Mg Tab, 0.1 MG PO TID PRN for ELEVATED BLOOD PRESSURE for 30 Days, #90 TAB If SBP >170, take one tablet by mouth Prov:KAREN GARNER MD 12/31/17 Pantoprazole* (Protonix*) 40 Mg Tablet.dr, 40 MG PO BID, #60 TAB Prov:JEAN MARIE HERNANDEZ NP 10/26/17 Medications Current Medications Atorvastatin Calcium (Lipitor) 40 mg QHS PO Last administered on 04/25/19at 20:27; Admin Dose 40 MG; Start 04/23/19 at 21:00 Clonidine (Catapres) 0.1 mg TID PRN PO ELEVATED BLOOD PRESSURE Last administered on 04/25/19at 20:28; Admin Dose 0.1 MG; Start 04/23/19 at 20:00 Escitalopram Oxalate (Lexapro) 10 mg DAILY PO Last administered on 04/26/19at 08:55; Admin Dose 10 MG; Start 04/24/19 at 09:00 Pantoprazole (Protonix Tab) 40 mg AC BREAKFAST PO Last administered on 04/26/19at 08:55; Admin Dose 40 MG; Start 04/24/19 at 07:00 IV Flush (NS 3 ml) 3 ml PER PROTOCOL IV ; Start 04/23/19 at 20:00 Ondansetron HCl (Zofran Inj) 4 mg Q6H PRN IV NAUSEA/VOMITING Last administered on 04/24/19at 12:15; Admin Dose 4 MG; Start 04/23/19 at 20:00 Acetaminophen (Tylenol Tab) 650 mg Q6H PRN PO .PAIN 1-3 OR TEMP; Start 04/23/19 at 20:00 Morphine Sulfate (morphine) 2 mg Q4H PRN IV .SEVERE PAIN 7-10 Last administered on 04/25/19at 12:27; Admin Dose 2 MG; Start 04/23/19 at 20:00 Docusate Sodium (Colace) 100 mg Q12H PRN PO .CONSTIPATION; Start 04/23/19 at 20:00 Bisacodyl (Dulcolax) 5 mg DAILY PRN PO .CONSTIPATION; Start 04/23/19 at 20:00 Heparin Sodium (Porcine) (Heparin (5000 Units/1ml)) 5,000 unit Q8 SC Last administered on 04/26/19at 05:24; Admin Dose 5,000 UNIT; Start 04/23/19 at 22:00 Lactobacillus Acidophilus (Florajen3 Capsule) 1 each BID PO Last administered on 04/26/19at 08:55; Admin Dose 1 EACH; Start 04/23/19 at 21:00 Miscellaneous Information 1 ea NOTE XX ; Start 04/23/19 at 20:30 Glucose (Glutose) 15 gm Q15M PRN PO DECREASED GLUCOSE; Start 04/23/19 at 20:30 Glucose (Glutose) 22.5 gm Q15M PRN PO DECREASED GLUCOSE; Start 04/23/19 at 20:30 Dextrose (D50w Syringe) 25 ml Q15M PRN IV DECREASED GLUCOSE; Start 04/23/19 at 20:30 Dextrose (D50w Syringe) 50 ml Q15M PRN IV DECREASED GLUCOSE; Start 04/23/19 at 20:30 Glucagon (Glucagen) 1 mg Q15M PRN IM DECREASED GLUCOSE; Start 04/23/19 at 20:30 Glucose (Glutose) 15 gm Q15M PRN BUCCAL DECREASED GLUCOSE; Start 04/23/19 at 20:30 Miscellaneous Information (Pending [facility] Order For Wound Care) This patient munguia... PRN PRN XX WOUND CARE; Start 04/24/19 at 05:00 Famotidine (Pepcid Iv) 20 mg DAILY IV Last administered on 04/26/19at 08:55; Admin Dose 20 MG; Start 04/24/19 at 18:00 Sucralfate (Carafate Susp) 1 gm QID PO Last administered on 04/26/19at 12:08; Admin Dose 1 GM; Start 04/24/19 at 17:00 Diagnostic Test (Pha) (Accu-Chek) 1 ea 02 XX ; Start 04/25/19 at 02:00 Insulin Aspart (Novolog Insulin Pen) NOVOLOG *MILD* ALGORITHM WITH MEALS BEDTIME SC ; Start 04/24/19 at 18:05 Sodium Chloride 1,000 ml @ 50 mls/hr Q20H IV Last administered on 04/26/19at 05:23; Admin Dose 50 MLS/HR; Start 04/24/19 at 14:00 Tobramycin (Tobramycin Iv Per Pharmacy) TOBRAMYCIN PER PHARMACY NOTE XX ; Start 04/24/19 at 16:00 Tobramycin 80 mg/ Sodium Chloride 52 ml @ 104 mls/hr Q24H IVPB Last administered on 04/25/19at 16:54; Admin Dose 104 MLS/HR; Start 04/24/19 at 17:00 Miscellaneous Information (*Rx Drug Level Order Reminder*) TOBRAMYCIN TROUGH LEVEL... 1630 ONCE XX ; Start 04/26/19 at 16:30; Stop 04/26/19 at 16:31 Nystatin (Nystatin Powder) 1 applic BID TOP Last administered on 04/26/19at 08:55; Admin Dose 1 APPLIC; Start 04/24/19 at 21:00 Miscellaneous Information (*Rx Drug Level Order Reminder*) TOBRAMYCIN PEAK 30 ADARSH... 1800 ONCE XX ; Start 04/26/19 at 18:00; Stop 04/26/19 at 18:01 Allergies: Coded Allergies: nitrofurantoin (Unverified Allergy, Unknown, itching and skin rashes, 04/23/19) Past Surgical History Past Surgical Hx: cholecystectomy, endoscopy, other Social History Alcohol Use: none Smoking Status: Never smoker Drug Use: none Exam/Review of Systems Exam Vitals Vital Signs Date Temp Pulse Resp B/P (MAP) Pulse Ox O2 O2 Flow FiO2 Time Delivery Rate 04/26/19 98.2 60 18 139/65 100 Room Air 07:59 (89) Intake and Output 04/25/19 04/25/19 04/26/19 1515:00 23:00 07:00 IntakeIntake Total 800 ml 930 ml 650 ml BalanceBalance 800 ml 930 ml 650 ml Exam PHYSICAL EXAMINATION: GENERAL: Alert & oriented x 3, in no acute distress SKIN: No lesions, HEAD: Normocephalic, atraumatic, no tenderness. EYES: Pupils equal reactive to light and accommodation, full extraocular movements, sclera clear, non-icteric, no discharge. EARS/NOSE AND THROAT: Ears normal, nose normal, oropharynx normal, oral membranes well hydrated without lesions. NECK: Supple, no masses. CHEST: Inspection within normal limits. CARDIOVASCULAR: Heart: Regular rate and rhythm RESPIRATORY: Lungs clear to auscultation GASTROINTESTINAL AND LIVER: Abdomen: Soft, non tenderness, non-distended, no hernias, no masses, no organomegaly, no ascites, no guarding, no rebound tenderness, normoactive bowel sounds. Rectal: Deferred. GENITOURINARY:Female genitalia within normal limits. EXTREMITIES: No cyanosis, clubbing or edema. Results Result Diagram: 04/26/19 0712 04/26/19 0712 Results 24hrs Laboratory Tests Test 04/25/19 17:38 04/25/19 20:26 04/26/19 07:12 04/26/19 08:08 Bedside Glucose 99 103 110 White Blood Count 10.3 # Red Blood Count 3.52 L Hemoglobin 9.1 L Hematocrit 30.1 L Mean Corpuscular 85.5 Volume Mean Corpuscular 25.9 L Hemoglobin Mean Corpuscular 30.2 L Hemoglobin Concent Red Cell 17.4 H Distribution Width Platelet Count 374 Mean Platelet Volume 9.7 Immature 5.300 H Granulocytes % Neutrophils % Segmented 64 Neutrophils % (Manual) Lymphocytes % Lymphocytes % 25 (Manual) Monocytes % Monocytes % (Manual) 2 Eosinophils % Eosinophils % 6 (Manual) Basophils % Myelocytes % 3 H (Manual) Nucleated Red Blood 0.0 Cells % Immature 0.550 H Granulocytes # Neutrophils # Lymphocytes (Manual) 2.5 Lymphocytes # Monocytes # Monocytes # (Manual) 0.2 L Eosinophils # Basophils # Myelocytes # 0.3 H Nucleated Red Blood Cells # Platelet Estimate NORMAL Anisocytosis 1+ Microcytosis 1+ Sodium Level 136 Potassium Level 4.0 Chloride Level 108 Carbon Dioxide Level 24 Anion Gap 4 L Blood Urea Nitrogen 8 Creatinine 0.99 Est Glomerular 56 L Filtrat Rate mL/min Glucose Level 109 Calcium Level 8.9 Phosphorus Level 2.7 Magnesium Level 1.7 Test 04/26/19 12:09 Bedside Glucose 116 Medications Medication Current Medications Atorvastatin Calcium (Lipitor) 40 mg QHS PO Last administered on 04/25/19 20:27; Admin Dose 40 MG; Start 04/23/19 at 21:00 Clonidine (Catapres) 0.1 mg TID PRN PO ELEVATED BLOOD PRESSURE Last administered on 04/25/19 20:28; Admin Dose 0.1 MG; Start 04/23/19 at 20:00 Escitalopram Oxalate (Lexapro) 10 mg DAILY PO Last administered on 04/26/19 08:55; Admin Dose 10 MG; Start 04/24/19 at 09:00 Pantoprazole (Protonix Tab) 40 mg AC BREAKFAST PO Last administered on 04/26/19 08:55; Admin Dose 40 MG; Start 04/24/19 at 07:00 IV Flush (NS 3 ml) 3 ml PER PROTOCOL IV ; Start 04/23/19 at 20:00 Ondansetron HCl (Zofran Inj) 4 mg Q6H PRN IV NAUSEA/VOMITING Last administered on 04/24/19at 12:15; Admin Dose 4 MG; Start 04/23/19 at 20:00 Acetaminophen (Tylenol Tab) 650 mg Q6H PRN PO .PAIN 1-3 OR TEMP; Start 04/23/19 at 20:00 Morphine Sulfate (morphine) 2 mg Q4H PRN IV .SEVERE PAIN 7-10 Last administered on 04/25/19at 12:27; Admin Dose 2 MG; Start 04/23/19 at 20:00 Docusate Sodium (Colace) 100 mg Q12H PRN PO .CONSTIPATION; Start 04/23/19 at 20:00 Bisacodyl (Dulcolax) 5 mg DAILY PRN PO .CONSTIPATION; Start 04/23/19 at 20:00 Heparin Sodium (Porcine) (Heparin (5000 Units/1ml)) 5,000 unit Q8 SC Last administered on 04/26/19at 05:24; Admin Dose 5,000 UNIT; Start 04/23/19 at 22:00 Lactobacillus Acidophilus (Florajen3 Capsule) 1 each BID PO Last administered on 04/26/19at 08:55; Admin Dose 1 EACH; Start 04/23/19 at 21:00 Miscellaneous Information 1 ea NOTE XX ; Start 04/23/19 at 20:30 Glucose (Glutose) 15 gm Q15M PRN PO DECREASED GLUCOSE; Start 04/23/19 at 20:30 Glucose (Glutose) 22.5 gm Q15M PRN PO DECREASED GLUCOSE; Start 04/23/19 at 20:30 Dextrose (D50w Syringe) 25 ml Q15M PRN IV DECREASED GLUCOSE; Start 04/23/19 at 20:30 Dextrose (D50w Syringe) 50 ml Q15M PRN IV DECREASED GLUCOSE; Start 04/23/19 at 20:30 Glucagon (Glucagen) 1 mg Q15M PRN IM DECREASED GLUCOSE; Start 04/23/19 at 20:30 Glucose (Glutose) 15 gm Q15M PRN BUCCAL DECREASED GLUCOSE; Start 04/23/19 at 20:30 Miscellaneous Information [facility] This patient munguia... PRN PRN XX WOUND CARE; Start 04/24/19 at 05:00 Famotidine (Pepcid Iv) 20 mg DAILY IV Last administered on 04/26/19at 08:55; Admin Dose 20 MG; Start 04/24/19 at 18:00 Sucralfate (Carafate Susp) 1 gm QID PO Last administered on 04/26/19at 12:08; Admin Dose 1 GM; Start 04/24/19 at 17:00 Diagnostic Test (Pha) (Accu-Chek) 1 ea 02 XX ; Start 04/25/19 at 02:00 Insulin Aspart (Novolog Insulin Pen) NOVOLOG *MILD* ALGORITHM WITH MEALS BEDTIME SC ; Start 04/24/19 at 18:05 Sodium Chloride 1,000 ml @ 50 mls/hr Q20H IV Last administered on 04/26/19at 05:23; Admin Dose 50 MLS/HR; Start 04/24/19 at 14:00 Tobramycin (Tobramycin Iv Per Pharmacy) TOBRAMYCIN PER PHARMACY NOTE XX ; Start 04/24/19 at 16:00 Tobramycin 80 mg/ Sodium Chloride 52 ml @ 104 mls/hr Q24H IVPB Last administered on 04/25/19at 16:54; Admin Dose 104 MLS/HR; Start 04/24/19 at 17:00 Miscellaneous Information (*Rx Drug Level Order Reminder*) TOBRAMYCIN TROUGH LEVEL... 1630 ONCE XX ; Start 04/26/19 at 16:30; Stop 04/26/19 at 16:31 Nystatin (Nystatin Powder) 1 applic BID TOP Last administered on 04/26/19at 08:55; Admin Dose 1 APPLIC; Start 04/24/19 at 21:00 Miscellaneous Information (*Rx Drug Level Order Reminder*) TOBRAMYCIN PEAK 30 ADARSH... 1800 ONCE XX ; Start 04/26/19 at 18:00; Stop 04/26/19 at 18:01 BALTA HENDERSON Apr 26, 2019 12:40
--- NOTE | 2019-04-26 13:35 | PN ---
Date/Time of Note Date/Time of Note DATE: 04/26/19 TIME: 13:33 Objective Vitals Vital Signs Date Temp Pulse Resp B/P (MAP) Pulse Ox O2 O2 Flow FiO2 Time Delivery Rate 04/26/19 98.2 60 18 139/65 100 Room Air 07:59 (89) Intake and Output 04/25/19 04/25/19 04/26/19 1515:00 23:00 07:00 IntakeIntake Total 800 ml 930 ml 650 ml BalanceBalance 800 ml 930 ml 650 ml Results Result Diagram: 04/26/1912 04/26/1912 Medications Medications Current Medications Atorvastatin Calcium (Lipitor) 40 mg QHS PO Last administered on 04/25/19 20:27; Admin Dose 40 MG; Start 04/23/19 at 21:00 Clonidine (Catapres) 0.1 mg TID PRN PO ELEVATED BLOOD PRESSURE Last administered on 04/25/19at 20:28; Admin Dose 0.1 MG; Start 04/23/19 at 20:00 Escitalopram Oxalate (Lexapro) 10 mg DAILY PO Last administered on 04/26/19at 08 :55; Admin Dose 10 MG; Start 04/24/19 at 09:00 Pantoprazole (Protonix Tab) 40 mg AC BREAKFAST PO Last administered on 04/26/19at 08:55; Admin Dose 40 MG; Start 04/24/19 at 07:00 IV Flush (NS 3 ml) 3 ml PER PROTOCOL IV ; Start 04/23/19 at 20:00 Ondansetron HCl (Zofran Inj) 4 mg Q6H PRN IV NAUSEA/VOMITING Last administered on 04/24/19at 12:15; Admin Dose 4 MG; Start 04/23/19 at 20:00 Acetaminophen (Tylenol Tab) 650 mg Q6H PRN PO .PAIN 1-3 OR TEMP; Start 04/23/19 at 20:00 Morphine Sulfate (morphine) 2 mg Q4H PRN IV .SEVERE PAIN 7-10 Last administered on 04/25/19at 12:27; Admin Dose 2 MG; Start 04/23/19 at 20:00 Docusate Sodium (Colace) 100 mg Q12H PRN PO .CONSTIPATION; Start 04/23/19 at 20:00 Bisacodyl (Dulcolax) 5 mg DAILY PRN PO .CONSTIPATION; Start 04/23/19 at 20:00 Heparin Sodium (Porcine) (Heparin (5000 Units/1ml)) 5,000 unit Q8 SC Last administered on 04/26/19at 05:24; Admin Dose 5,000 UNIT; Start 04/23/19 at 22:00 Lactobacillus Acidophilus (Florajen3 Capsule) 1 each BID PO Last administered on 04/26/19at 08:55; Admin Dose 1 EACH; Start 04/23/19 at 21:00 Miscellaneous Information 1 ea NOTE XX ; Start 04/23/19 at 20:30 Glucose (Glutose) 15 gm Q15M PRN PO DECREASED GLUCOSE; Start 04/23/19 at 20:30 Glucose (Glutose) 22.5 gm Q15M PRN PO DECREASED GLUCOSE; Start 04/23/19 at 20:30 Dextrose (D50w Syringe) 25 ml Q15M PRN IV DECREASED GLUCOSE; Start 04/23/19 at 20:30 Dextrose (D50w Syringe) 50 ml Q15M PRN IV DECREASED GLUCOSE; Start 04/23/19 at 20:30 Glucagon (Glucagen) 1 mg Q15M PRN IM DECREASED GLUCOSE; Start 04/23/19 at 20:30 Glucose (Glutose) 15 gm Q15M PRN BUCCAL DECREASED GLUCOSE; Start 04/23/19 at 20:30 Miscellaneous Information (Pending [facility] Order For Wound Care) This patient munguia... PRN PRN XX WOUND CARE; Start 04/24/19 at 05:00 Sucralfate (Carafate Susp) 1 gm QID PO Last administered on 04/26/19at 12:08; Admin Dose 1 GM; Start 04/24/19 at 17:00 Diagnostic Test (Pha) (Accu-Chek) 1 ea 02 XX ; Start 04/25/19 at 02:00 Insulin Aspart (Novolog Insulin Pen) NOVOLOG *MILD* ALGORITHM WITH MEALS BEDTIME SC ; Start 04/24/19 at 18:05 Sodium Chloride 1,000 ml @ 50 mls/hr Q20H IV Last administered on 04/26/19at 05:23; Admin Dose 50 MLS/HR; Start 04/24/19 at 14:00 Tobramycin (Tobramycin Iv Per Pharmacy) TOBRAMYCIN PER PHARMACY NOTE XX ; Start 04/24/19 at 16:00 Tobramycin 80 mg/ Sodium Chloride 52 ml @ 104 mls/hr Q24H IVPB Last administered on 04/25/19at 16:54; Admin Dose 104 MLS/HR; Start 04/24/19 at 17:00 Miscellaneous Information (*Rx Drug Level Order Reminder*) TOBRAMYCIN TROUGH LEVEL... 1630 ONCE XX ; Start 04/26/19 at 16:30; Stop 04/26/19 at 16:31 Nystatin (Nystatin Powder) 1 applic BID TOP Last administered on 04/26/19at 08:55; Admin Dose 1 APPLIC; Start 04/24/19 at 21:00 Miscellaneous Information (*Rx Drug Level Order Reminder*) TOBRAMYCIN PEAK 30 ADARSH... 1800 ONCE XX ; Start 04/26/19 at 18:00; Stop 04/26/19 at 18:01 Metoclopramide HCl (Reglan) 5 mg Q6 IV ; Start 04/26/19 at 18:00 Famotidine (Pepcid Iv) 20 mg QHS IV ; Start 04/26/19 at 21:00 VTE Prophylaxis Risk score (from Ns)>0 risk: 5 SCD applied (from [facility] [place] Yes Lines/Catheters IV Catheter Type: Krishna in Place: No Assessment/Plan Hospital Course Subjective Patient states she still has stomach issues that come and go, states that she is still having diarrhea and nausea every single time that she eats anything. Objective Physical exam General: Patient is laying in bed and answers questions appropriately Mentation: Patient is alert and oriented 4, Head: Normocephalic atraumatic Eyes: EOMI, pupils reactive to light Neck: Supple, nontender, midline Respiratory: Clear to auscultation bilaterally Cardiovascular: regular rate, no obvious murmurs Gastrointestinal: non-tender to palpation, bowel sounds heard. Neurological: Moves all extremities spontaneously Skin: No new skin lesions Assessment and plan Nausea and vomiting, acute on chronic -Stable, patient states that this happened after she took the oral antibiotic at home, however upon further questioning this appears to be happening anytime she eats and has been going on for a long time. - IV antibiotic -We will try to have some stomach relief with Carafate and Protonix for now -GI consulted, likely endoscopy soon. Urinary tract infection -Infectious disease on board, appears patient was discharged previously on nitrofurantoin -Continue abx for now Diarrhea -Pending stool studies, c dif neg -Infectious disease consulted - diarrhea is intermittent since admission, will monitor, once again unsure if this is secondary to antibiotic versus other pathology -Patient has no abdominal pain Hypertension -Home meds as needed Diabetes mellitus -We will do insulin sliding scale Dyslipidemia -Continue home medications History of urinary tract infection -Patient has a history of multidrug-resistant UTIs Disposition -GI consulted LINDA BOYLE Apr 26, 2019 13:34
[2019-04-26 14:56] VITALS: BP 184/84; PULSE 65; RESP 18
[2019-04-26] MEDS ORDERED: [UNRECOGNIZED DRUG - OTHER] XX ONE (16:30)
[2019-04-26] MEDS: METOCLOPRAMIDE 10 MG INJ IV SCH ×2 (17:33→23:42)
[2019-04-26] MEDS: TOBRAMYCIN 80 MG in SOD CHLORIDE 0.9% 50 ML IVPB SCH (17:33)
[2019-04-26] MEDS ORDERED: [UNRECOGNIZED DRUG - OTHER] XX ONE (18:00)
[2019-04-26 20:07] VITALS: BP 178/72; PULSE 65; RESP 18
[2019-04-26] MEDS: ATORVASTATIN 40 MG TAB PO SCH (20:31)
[2019-04-27] MEDS: ACCU-CHEK XX SCH (02:00)
[2019-04-27 02:06] VITALS: BP 150/73; PULSE 62; RESP 18
[2019-04-27] MEDS: METOCLOPRAMIDE 10 MG INJ IV SCH (06:05)
[2019-04-27] MEDS: HEPARIN 5,000 UNIT/1 ML VIAL SC SCH ×3 (06:06→22:00)
[2019-04-27] MEDS: INSULIN ASPART [NOVOLOG] 3 ML PEN SC SCH ×4 (08:00→20:15)
[2019-04-27 08:21] VITALS: BP 135/63; PULSE 53; RESP 20
[2019-04-27] MEDS: PANTOPRAZOLE (EC) 40 MG TAB PO SCH (08:33)
[2019-04-27] MEDS: ESCITALOPRAM 10 MG TAB PO SCH (08:33)
[2019-04-27] MEDS: SUCRALFATE (100 MG/ML) 10ML CUP PO SCH ×4 (08:33→20:11)
[2019-04-27] MEDS: L ACIDOPHIL/B LACTIS/B LONGUM CAPSULE PO SCH ×2 (08:33→20:11)
[2019-04-27] MEDS: NYSTATIN 30 GM POWDER BTL TOP SCH ×2 (08:34→20:15)
--- NOTE | 2019-04-27 09:26 | PN ---
Date/Time of Note Date/Time of Note DATE: 04/27/19 TIME: 09:17 Assessment/Plan VTE Prophylaxis Risk score (from Ns)>0 risk: 7 SCD applied (from Ns): Yes Pharmacological prophylaxis: other (scds) Lines/Catheters IV Catheter Type (from Nrsg): Peripheral IV Urinary Cath still in place: No Assessment/Plan Hospital Course Summary Assessment and Plan: Assessment: Nausea/vomiting -Iatrogenic versus gastritis versus other Diarrhea -Iatrogenic versus IBS versus other Normocytic anemia Abdominal cramping- improved UTI currently on antibiotics DM Dyslipidemia Pretension Plan: Pt continues to have sx of n/v and diarrhea Will continues clear liquid diet today. N.p.o. after 04/28/1908 30 Plan for EGD/colonoscopy tomorrow reviewed risk/benefits of both procedures and sedation patient verbalized understanding and is agreeable Patient seen in collaboration with Dr. Vasquez Subjective: Course reviewed with nursing staff Patient interviewed and examined All labs, imaging and other results reviewed The patient is resting in bed appears comfortable. Patient states she continued to have episodes of diarrhea yesterday with nausea and vomiting after eating to discuss plan for EGD/colonoscopy patient is agreeable Exam PHYSICAL EXAMINATION: GENERAL: Alert & oriented x 3, in no acute distress SKIN: No lesions, HEAD: Normocephalic, atraumatic, no tenderness. EYES: Pupils equal reactive to light and accommodation, full extraocular movements, sclera clear, non-icteric, no discharge. EARS/NOSE AND THROAT: Ears normal, nose normal, oropharynx normal, oral membran es well hydrated without lesions. NECK: Supple, no masses. CHEST: Inspection within normal limits. CARDIOVASCULAR: Heart: Regular rate and rhythm RESPIRATORY: Lungs clear to auscultation GASTROINTESTINAL AND LIVER: Abdomen: Soft, mild lower abd tenderness, non- distended, no hernias, no masses, no organomegaly, no ascites, no guarding, no rebound tenderness, normoactive bowel sounds. Rectal: Deferred. GENITOURINARY:Female genitalia within normal limits. EXTREMITIES: No cyanosis, clubbing or edema. Result Diagram: 04/27/19 0531 04/27/19 0531 Results 24hrs Laboratory Tests Test 04/26/19 12:09 04/26/19 16:30 04/26/19 17:34 04/26/19 18:10 Bedside Glucose 116 106 Tobramycin Level 1.3 Trough Tobramycin Level 4.4 *L Peak Test 04/26/19 20:30 04/27/19 05:31 04/27/19 08:01 Bedside Glucose 122 115 White Blood Count 12.8 #H Red Blood Count 3.64 L Hemoglobin 9.3 L Hematocrit 31.1 L Mean Corpuscular 85.4 Volume Mean Corpuscular 25.5 L Hemoglobin Mean Corpuscular 29.9 L Hemoglobin Concent Red Cell 17.8 H Distribution Width Platelet Count 407 Mean Platelet Volume 10.3 Immature 4.600 H Granulocytes % Neutrophils % 68.7 Lymphocytes % 17.7 Monocytes % 6.4 Eosinophils % 2.1 Basophils % 0.5 Nucleated Red Blood 0.0 Cells % Immature 0.590 H Granulocytes # Neutrophils # 8.8 H Lymphocytes # 2.3 Monocytes # 0.8 Eosinophils # 0.3 Basophils # 0.1 Nucleated Red Blood 0.0 Cells # Sodium Level 138 Potassium Level 4.2 Chloride Level 109 Carbon Dioxide Level 24 Anion Gap 5 Blood Urea Nitrogen 9 Creatinine 0.93 Est Glomerular > 60 Filtrat Rate mL/min Glucose Level 112 Calcium Level 8.7 Phosphorus Level 2.8 Magnesium Level 1.8 Exam/Review of Systems Exam Vitals Vital Signs Date Temp Pulse Resp B/P (MAP) Pulse Ox O2 O2 Flow FiO2 Time Delivery Rate 04/27/19 98.2 53 20 135/63 99 08:21 (87) 04/26/19 Room Air 07:59 Intake and Output 04/26/19 04/26/19 04/27/19 1515:00 23:00 07:00 IntakeIntake Total 220 ml 100 ml 1505 ml BalanceBalance 220 ml 100 ml 1505 ml Results Results 24hrs Laboratory Tests Test 04/26/19 12:09 04/26/19 16:30 04/26/19 17:34 04/26/19 18:10 Bedside Glucose 116 106 Tobramycin Level 1.3 Trough Tobramycin Level 4.4 *L Peak Test 04/26/19 20:30 04/27/19 05:31 04/27/19 08:01 Bedside Glucose 122 115 White Blood Count 12.8 #H Red Blood Count 3.64 L Hemoglobin 9.3 L Hematocrit 31.1 L Mean Corpuscular 85.4 Volume Mean Corpuscular 25.5 L Hemoglobin Mean Corpuscular 29.9 L Hemoglobin Concent Red Cell 17.8 H Distribution Width Platelet Count 407 Mean Platelet Volume 10.3 Immature 4.600 H Granulocytes % Neutrophils % 68.7 Lymphocytes % 17.7 Monocytes % 6.4 Eosinophils % 2.1 Basophils % 0.5 Nucleated Red Blood 0.0 Cells % Immature 0.590 H Granulocytes # Neutrophils # 8.8 H Lymphocytes # 2.3 Monocytes # 0.8 Eosinophils # 0.3 Basophils # 0.1 Nucleated Red Blood 0.0 Cells # Sodium Level 138 Potassium Level 4.2 Chloride Level 109 Carbon Dioxide Level 24 Anion Gap 5 Blood Urea Nitrogen 9 Creatinine 0.93 Est Glomerular > 60 Filtrat Rate mL/min Glucose Level 112 Calcium Level 8.7 Phosphorus Level 2.8 Magnesium Level 1.8 Medications Medication Current Medications Atorvastatin Calcium (Lipitor) 40 mg QHS PO Last administered on 04/26/19 20:31; Admin Dose 40 MG; Start 04/23/19 at 21:00 Clonidine (Catapres) 0.1 mg TID PRN PO ELEVATED BLOOD PRESSURE Last a dministered on 04/26/19 20:32; Admin Dose 0.1 MG; Start 04/23/19 at 20:00 Escitalopram Oxalate (Lexapro) 10 mg DAILY PO Last administered on 04/27/19 08:33; Admin Dose 10 MG; Start 04/24/19 at 09:00 Pantoprazole (Protonix Tab) 40 mg AC BREAKFAST PO Last administered on 04/27/19 08:33; Admin Dose 40 MG; Start 04/24/19 at 07:00 IV Flush (NS 3 ml) 3 ml PER PROTOCOL IV ; Start 04/23/19 at 20:00 Ondansetron HCl (Zofran Inj) 4 mg Q6H PRN IV NAUSEA/VOMITING Last administered on 04/24/19at 12:15; Admin Dose 4 MG; Start 04/23/19 at 20:00 Acetaminophen (Tylenol Tab) 650 mg Q6H PRN PO .PAIN 1-3 OR TEMP; Start 04/23/19 at 20:00 Morphine Sulfate (morphine) 2 mg Q4H PRN IV .SEVERE PAIN 7-10 Last administered on 04/25/19 12:27; Admin Dose 2 MG; Start 04/23/19 at 20:00 Docusate Sodium (Colace) 100 mg Q12H PRN PO .CONSTIPATION; Start 04/23/19 at 20:00 Bisacodyl (Dulcolax) 5 mg DAILY PRN PO .CONSTIPATION; Start 04/23/19 at 20:00 Heparin Sodium (Porcine) (Heparin (5000 Units/1ml)) 5,000 unit Q8 SC Last administered on 04/27/19at 06:06; Admin Dose 5,000 UNIT; Start 04/23/19 at 22:00 Lactobacillus Acidophilus (Florajen3 Capsule) 1 each BID PO Last administered on 04/27/19at 08:33; Admin Dose 1 EACH; Start 04/23/19 at 21:00 Miscellaneous Information 1 ea NOTE XX ; Start 04/23/19 at 20:30 Glucose (Glutose) 15 gm Q15M PRN PO DECREASED GLUCOSE; Start 04/23/19 at 20:30 Glucose (Glutose) 22.5 gm Q15M PRN PO DECREASED GLUCOSE; Start 04/23/19 at 20:30 Dextrose (D50w Syringe) 25 ml Q15M PRN IV DECREASED GLUCOSE; Start 04/23/19 at 20:30 Dextrose (D50w Syringe) 50 ml Q15M PRN IV DECREASED GLUCOSE; Start 04/23/19 at 20:30 Glucagon (Glucagen) 1 mg Q15M PRN IM DECREASED GLUCOSE; Start 04/23/19 at 20:30 Glucose (Glutose) 15 gm Q15M PRN BUCCAL DECREASED GLUCOSE; Start 04/23/19 at 20:30 Miscellaneous Information (Pending [facility] Order For Wound Care) This patient munguia... PRN PRN XX WOUND CARE; Start 04/24/19 at 05:00 Sucralfate (Carafate Susp) 1 gm QID PO Last administered on 04/27/19at 08:33; Admin Dose 1 GM; Start 04/24/19 at 17:00 Diagnostic Test (Pha) (Accu-Chek) 1 ea 02 XX ; Start 04/25/19 at 02:00 Insulin Aspart (Novolog Insulin Pen) NOVOLOG *MILD* ALGORITHM WITH MEALS BEDTIME SC ; Start 04/24/19 at 18:05 Sodium Chloride 1,000 ml @ 50 mls/hr Q20H IV Last administered on 04/26/19at 23:44; Admin Dose 50 MLS/HR; Start 04/24/19 at 14:00 Tobramycin (Tobramycin Iv Per Pharmacy) TOBRAMYCIN PER PHARMACY NOTE XX ; Start 04/24/19 at 16:00 Tobramycin 80 mg/ Sodium Chloride 52 ml @ 104 mls/hr Q24H IVPB Last administered on 04/26/19at 17:33; Admin Dose 104 MLS/HR; Start 04/24/19 at 17:00 Nystatin (Nystatin Powder) 1 applic BID TOP Last administered on 04/27/19at 08:34; Admin Dose 1 APPLIC; Start 04/24/19 at 21:00 Metoclopramide HCl (Reglan) 5 mg Q6 IV Last administered on 04/27/19at 06:05; Admin Dose 5 MG; Start 04/26/19 at 18:00 Famotidine (Pepcid Iv) 20 mg QHS IV Last administered on 04/26/19at 20:31; Admin Dose 20 MG; Start 04/26/19 at 21:00 Amlodipine Besylate (Norvasc) 5 mg DAILY PO ; Start 04/27/19 at 09:30 BALTA HENDERSON Apr 27, 2019 09:26
[2019-04-27] MEDS ORDERED: METOCLOPRAMIDE 10 MG INJ IV PRN (09:30)
[2019-04-27] MEDS ORDERED: BISACODYL (EC) 5 MG TAB PO ONE (09:30)
[2019-04-27] MEDS: AMLODIPINE 5 MG TAB PO SCH (09:44)
--- NOTE | 2019-04-27 13:57 | CONS ---
Assessment/Plan Assessment/Plan Hospital Course (Demo Recall) Patient feels good she is in no distress no fevers overnight still complaining of diarrhea, tolerates clear liquid diet Urine culture on April 17 grew Klebsiella pneumoniae and E. coli both susceptible to cefotaxime and Ancef also tobramycin Antimicrobials: Tobramycin Physical examination: Obese well-developed elderly woman who is awake in no distress. Head atraumatic normocephalic sclera nonicteric vehicle mucosa dry neck is obese chest rise symmetrical breath sounds diminished bases heart S1-S2 abdomen soft bowel sounds present extremities without cyanosis Assessment: 1. Recurrent UTI 2. Morbid obesity 3. Diabetes 4. Hypertension 5. Diarrhea, C. difficile negative Plan: Stable, continue present care and antibiotics, plan for EGD on colonoscopy per GI Consultation Date/Type/Reason Admit Date/Time Apr 23, 2019 at 18:26 Initial Consult Date Type of Consult id Date/Time of Note DATE: 04/27/19 TIME: 13:56 Exam/Review of Systems Exam Vitals Vital Signs Date Temp Pulse Resp B/P (MAP) Pulse Ox O2 O2 Flow FiO2 Time Delivery Rate 04/27/19 98.2 53 20 135/63 99 08:21 (87) 04/26/19 Room Air 07:59 Intake and Output 04/26/19 04/26/19 04/27/19 1515:00 23:00 07:00 IntakeIntake Total 220 ml 100 ml 1505 ml BalanceBalance 220 ml 100 ml 1505 ml Results Result Diagram: 04/27/19 0531 04/27/19 0531 Results 24hrs Laboratory Tests Test 04/26/19 16:30 04/26/19 17:34 04/26/19 18:10 04/26/19 20:30 Tobramycin Level 1.3 Trough Bedside Glucose 106 122 Tobramycin Level 4.4 *L Peak Test 04/27/19 05:31 04/27/19 08:01 04/27/19 12:16 White Blood Count 12.8 #H Red Blood Count 3.64 L Hemoglobin 9.3 L Hematocrit 31.1 L Mean Corpuscular 85.4 Volume Mean Corpuscular 25.5 L Hemoglobin Mean Corpuscular 29.9 L Hemoglobin Concent Red Cell 17.8 H Distribution Width Platelet Count 407 Mean Platelet Volume 10.3 Immature 4.600 H Granulocytes % Neutrophils % 68.7 Lymphocytes % 17.7 Monocytes % 6.4 Eosinophils % 2.1 Basophils % 0.5 Nucleated Red Blood 0.0 Cells % Immature 0.590 H Granulocytes # Neutrophils # 8.8 H Lymphocytes # 2.3 Monocytes # 0.8 Eosinophils # 0.3 Basophils # 0.1 Nucleated Red Blood 0.0 Cells # Sodium Level 138 Potassium Level 4.2 Chloride Level 109 Carbon Dioxide Level 24 Anion Gap 5 Blood Urea Nitrogen 9 Creatinine 0.93 Est Glomerular > 60 Filtrat Rate mL/min Glucose Level 112 Calcium Level 8.7 Phosphorus Level 2.8 Magnesium Level 1.8 Bedside Glucose 115 112 Medications Medication Current Medications Atorvastatin Calcium (Lipitor) 40 mg QHS PO Last administered on 04/26/19 20:31; Admin Dose 40 MG; Start 04/23/19 at 21:00 Clonidine (Catapres) 0.1 mg TID PRN PO ELEVATED BLOOD PRESSURE Last administered on 04/26/19 20:32; Admin Dose 0.1 MG; Start 04/23/19 at 20:00 Escitalopram Oxalate (Lexapro) 10 mg DAILY PO Last administered on 04/27/19 08:33; Admin Dose 10 MG; Start 04/24/19 at 09:00 Pantoprazole (Protonix Tab) 40 mg AC BREAKFAST PO Last administered on 04/27/19 08:33; Admin Dose 40 MG; Start 04/24/19 at 07:00 IV Flush (NS 3 ml) 3 ml PER PROTOCOL IV ; Start 04/23/19 at 20:00 Ondansetron HCl (Zofran Inj) 4 mg Q6H PRN IV NAUSEA/VOMITING Last administered on 04/24/19at 12:15; Admin Dose 4 MG; Start 04/23/19 at 20:00 Acetaminophen (Tylenol Tab) 650 mg Q6H PRN PO .PAIN 1-3 OR TEMP; Start 04/23/19 at 20:00 Morphine Sulfate (morphine) 2 mg Q4H PRN IV .SEVERE PAIN 7-10 Last administered on 04/25/19at 12:27; Admin Dose 2 MG; Start 04/23/19 at 20:00 Docusate Sodium (Colace) 100 mg Q12H PRN PO .CONSTIPATION; Start 04/23/19 at 20:00 Bisacodyl (Dulcolax) 5 mg DAILY PRN PO .CONSTIPATION; Start 04/23/19 at 20:00 Heparin Sodium (Porcine) (Heparin (5000 Units/1ml)) 5,000 unit Q8 SC Last administered on 04/27/19at 06:06; Admin Dose 5,000 UNIT; Start 04/23/19 at 22:00 Lactobacillus Acidophilus (Florajen3 Capsule) 1 each BID PO Last administered on 04/27/19at 08:33; Admin Dose 1 EACH; Start 04/23/19 at 21:00 Miscellaneous Information 1 ea NOTE XX ; Start 04/23/19 at 20:30 Glucose (Glutose) 15 gm Q15M PRN PO DECREASED GLUCOSE; Start 04/23/19 at 20:30 Glucose (Glutose) 22.5 gm Q15M PRN PO DECREASED GLUCOSE; Start 04/23/19 at 20:30 Dextrose (D50w Syringe) 25 ml Q15M PRN IV DECREASED GLUCOSE; Start 04/23/19 at 20:30 Dextrose (D50w Syringe) 50 ml Q15M PRN IV DECREASED GLUCOSE; Start 04/23/19 at 20:30 Glucagon (Glucagen) 1 mg Q15M PRN IM DECREASED GLUCOSE; Start 04/23/19 at 20:30 Glucose (Glutose) 15 gm Q15M PRN BUCCAL DECREASED GLUCOSE; Start 04/23/19 at 20:30 Miscellaneous Information (Pending [facility] Order For Wound Care) This patient munguia... PRN PRN XX WOUND CARE; Start 04/24/19 at 05:00 Sucralfate (Carafate Susp) 1 gm QID PO Last administered on 04/27/19at 12:16; Admin Dose 1 GM; Start 04/24/19 at 17:00 Diagnostic Test (Pha) (Accu-Chek) 1 ea 02 XX ; Start 04/25/19 at 02:00 Insulin Aspart (Novolog Insulin Pen) NOVOLOG *MILD* ALGORITHM WITH MEALS BEDTIME SC ; Start 04/24/19 at 18:05 Sodium Chloride 1,000 ml @ 50 mls/hr Q20H IV Last administered on 04/26/19at 23:44; Admin Dose 50 MLS/HR; Start 04/24/19 at 14:00 Tobramycin (Tobramycin Iv Per Pharmacy) TOBRAMYCIN PER PHARMACY NOTE XX ; Start 6/17/19 at 16:00 Tobramycin 80 mg/ Sodium Chloride 52 ml @ 104 mls/hr Q24H IVPB Last administered on 04/26/19at 17:33; Admin Dose 104 MLS/HR; Start 04/24/19 at 17:00 Nystatin (Nystatin Powder) 1 applic BID TOP Last administered on 04/27/19at 08:34; Admin Dose 1 APPLIC; Start 04/24/19 at 21:00 Famotidine (Pepcid Iv) 20 mg QHS IV Last administered on 04/26/19at 20:31; Admin Dose 20 MG; Start 04/26/19 at 21:00 Amlodipine Besylate (Norvasc) 5 mg DAILY PO Last administered on 04/27/19at 09:44; Admin Dose 5 MG; Start 04/27/19 at 09:30 Metoclopramide HCl (Reglan) 5 mg Q6 PRN IV n/v; Start 04/27/19 at 09:30 Magnesium Citrate (Citroma) 300 ml ONCE ONCE PO ; Start 04/27/19 at 17:30; Stop 04/27/19 at 17:31 Polyethylene Glycol (Miralax) 119 gm ONCE ONCE PO ; Start 04/27/19 at 18:30; Stop 04/27/19 at 18:31 Polyethylene Glycol (Miralax) 119 gm 2ND DOSE (GI PREP) ONCE PO ; Start 04/28/19 at 06:00; Stop 04/28/19 at 06:01 Bisacodyl (Dulcolax) 10 mg 2ND DOSE (GI PREP) ONCE PO ; Start 04/28/19 at 08:00; Stop 04/28/19 at 08:01 ANA MARIA ZULETA NP Apr 27, 2019 13:57
[2019-04-27 15:09] VITALS: BP 163/71; PULSE 57; RESP 18
--- NOTE | 2019-04-27 15:14 | PN ---
Date/Time of Note Date/Time of Note DATE: 04/27/19 TIME: 15:13 Objective Vitals Vital Signs Date Temp Pulse Resp B/P (MAP) Pulse Ox O2 O2 Flow FiO2 Time Delivery Rate 04/27/19 98.1 57 18 163/71 100 15:09 (101) 04/26/19 Room Air 07:59 Intake and Output 04/26/19 04/26/19 04/27/19 1515:00 23:00 07:00 IntakeIntake Total 220 ml 100 ml 1505 ml BalanceBalance 220 ml 100 ml 1505 ml Results Result Diagram: 04/27/1953004/27/19530 Medications Medications Current Medications Atorvastatin Calcium (Lipitor) 40 mg QHS PO Last administered on 04/26/19 20:31; Admin Dose 40 MG; Start 04/23/19 at 21:00 Clonidine (Catapres) 0.1 mg TID PRN PO ELEVATED BLOOD PRESSURE Last administered on 04/26/19 20:32; Admin Dose 0.1 MG; Start 04/23/19 at 20:00 Escitalopram Oxalate (Lexapro) 10 mg DAILY PO Last administered on 04/27/19 08:33; Admin Dose 10 MG; Start 04/24/19 at 09:00 Pantoprazole (Protonix Tab) 40 mg AC BREAKFAST PO Last administered on 04/27/19 08:33; Admin Dose 40 MG; Start 04/24/19 at 07:00 IV Flush (NS 3 ml) 3 ml PER PROTOCOL IV ; Start 04/23/19 at 20:00 Ondansetron HCl (Zofran Inj) 4 mg Q6H PRN IV NAUSEA/VOMITING Last administered on 04/24/19at 12:15; Admin Dose 4 MG; Start 04/23/19 at 20:00 Acetaminophen (Tylenol Tab) 650 mg Q6H PRN PO .PAIN 1-3 OR TEMP; Start 04/23/19 at 20:00 Morphine Sulfate (morphine) 2 mg Q4H PRN IV .SEVERE PAIN 7-10 Last administered on 04/25/19at 12:27; Admin Dose 2 MG; Start 04/23/19 at 20:00 Docusate Sodium (Colace) 100 mg Q12H PRN PO .CONSTIPATION; Start 04/23/19 at 20:00 Bisacodyl (Dulcolax) 5 mg DAILY PRN PO .CONSTIPATION; Start 04/23/19 at 20:00 Heparin Sodium (Porcine) (Heparin (5000 Units/1ml)) 5,000 unit Q8 SC Last administered on 04/27/19at 06:06; Admin Dose 5,000 UNIT; Start 04/23/19 at 22:00 Lactobacillus Acidophilus (Florajen3 Capsule) 1 each BID PO Last administered on 04/27/19at 08:33; Admin Dose 1 EACH; Start 04/23/19 at 21:00 Miscellaneous Information 1 ea NOTE XX ; Start 04/23/19 at 20:30 Glucose (Glutose) 15 gm Q15M PRN PO DECREASED GLUCOSE; Start 04/23/19 at 20:30 Glucose (Glutose) 22.5 gm Q15M PRN PO DECREASED GLUCOSE; Start 04/23/19 at 20:30 Dextrose (D50w Syringe) 25 ml Q15M PRN IV DECREASED GLUCOSE; Start 04/23/19 at 20:30 Dextrose (D50w Syringe) 50 ml Q15M PRN IV DECREASED GLUCOSE; Start 04/23/19 at 20:30 Glucagon (Glucagen) 1 mg Q15M PRN IM DECREASED GLUCOSE; Start 04/23/19 at 20:30 Glucose (Glutose) 15 gm Q15M PRN BUCCAL DECREASED GLUCOSE; Start 04/23/19 at 20:30 Miscellaneous Information (Pending [facility] Order For Wound Care) This patient munguia... PRN PRN XX WOUND CARE; Start 04/24/19 at 05:00 Sucralfate (Carafate Susp) 1 gm QID PO Last administered on 04/27/19at 12:16; Admin Dose 1 GM; Start 04/24/19 at 17:00 Diagnostic Test (Pha) (Accu-Chek) 1 ea 02 XX ; Start 04/25/19 at 02:00 Insulin Aspart (Novolog Insulin Pen) NOVOLOG *MILD* ALGORITHM WITH MEALS BEDTIME SC ; Start 04/24/19 at 18:05 Sodium Chloride 1,000 ml @ 50 mls/hr Q20H IV Last administered on 04/26/19at 23:44; Admin Dose 50 MLS/HR; Start 04/24/19 at 14:00 Tobramycin (Tobramycin Iv Per Pharmacy) TOBRAMYCIN PER PHARMACY NOTE XX ; Start 04/24/19 at 16:00 Tobramycin 80 mg/ Sodium Chloride 52 ml @ 104 mls/hr Q24H IVPB Last administered on 04/26/19at 17:33; Admin Dose 104 MLS/HR; Start 04/24/19 at 17:00 Nystatin (Nystatin Powder) 1 applic BID TOP Last administered on 04/27/19at 08:34; Admin Dose 1 APPLIC; Start 04/24/19 at 21:00 Famotidine (Pepcid Iv) 20 mg QHS IV Last administered on 04/26/19at 20:31; Admin Dose 20 MG; Start 04/26/19 at 21:00 Amlodipine Besylate (Norvasc) 5 mg DAILY PO Last administered on 04/27/19at 09:44; Admin Dose 5 MG; Start 04/27/19 at 09:30 Metoclopramide HCl (Reglan) 5 mg Q6 PRN IV n/v; Start 04/27/19 at 09:30 Magnesium Citrate (Citroma) 300 ml ONCE ONCE PO ; Start 04/27/19 at 17:30; Stop 04/27/19 at 17:31 Polyethylene Glycol (Miralax) 119 gm ONCE ONCE PO ; Start 04/27/19 at 18:30; Stop 04/27/19 at 18:31 Polyethylene Glycol (Miralax) 119 gm 2ND DOSE (GI PREP) ONCE PO ; Start 04/28/19 at 06:00; Stop 04/28/19 at 06:01 Bisacodyl (Dulcolax) 10 mg 2ND DOSE (GI PREP) ONCE PO ; Start 04/28/19 at 08:00; Stop 04/28/19 at 08:01 VTE Prophylaxis Risk score (from Nsg)>0 risk: 5 SCD applied (from Nsg): No SCD contraindication: other Lines/Catheters IV Catheter Type: Krishna in Place: No Assessment/Plan Hospital Course Subjective Patient states she still has stomach issues that come and go, nausea has improved.. Objective Physical exam General: Patient is laying in bed and answers questions appropriately Mentation: Patient is alert and oriented 4, Head: Normocephalic atraumatic Eyes: EOMI, pupils reactive to light Neck: Supple, nontender, midline Respiratory: Clear to auscultation bilaterally Cardiovascular: regular rate, no obvious murmurs Gastrointestinal: non-tender to palpation, bowel sounds heard. Neurological: Moves all extremities spontaneously Skin: No new skin lesions Assessment and plan Nausea and vomiting, acute on chronic -Stable, patient states that this happened after she took the oral antibiotic at home, however upon further questioning this appears to be happening anytime she eats and has been going on for a long time. - IV antibiotic -We will try to have some stomach relief with Carafate and Protonix for now -GI consulted, likely endoscopy soon. -Nausea has improved today however patient was on scheduled Reglan. Urinary tract infection -Infectious disease on board, appears patient was discharged previously on nitrofurantoin -Continue abx for now Diarrhea -Pending stool studies, c dif neg -Infectious disease consulted - diarrhea is intermittent since admission, will monitor, once again unsure if this is secondary to antibiotic versus other pathology -Patient has no abdominal pain Hypertension -Home meds as needed Diabetes mellitus -We will do insulin sliding scale Dyslipidemia -Continue home medications History of urinary tract infection -Patient has a history of multidrug-resistant UTIs Disposition -GI consulted, upper and lower endoscopy scheduled for tomorrow due to persistent symptoms LINDA BOYLE Apr 27, 2019 15:14
[2019-04-27 15:55] VITALS: BP 150/56; PULSE 64
[2019-04-27] MEDS ORDERED: MAGNESIUM CITRATE 300 ML BTL PO ONE (17:30)
[2019-04-27] MEDS: TOBRAMYCIN 80 MG in SOD CHLORIDE 0.9% 50 ML IVPB SCH (17:31)
[2019-04-27] MEDS ORDERED: POLYETHYLENE GLYCOL 3350 119 GM POWDER PO ONE (18:30)
[2019-04-27] MEDS: POLYETHYLENE GLYCOL 3350 119 GM POWDER PO ONE (18:33)
[2019-04-27] MEDS: SOD CHLORIDE 0.45% 1,000 ML IV SCH (18:34)
[2019-04-27 20:09] VITALS: BP 187/78; PULSE 63; RESP 18
[2019-04-27] MEDS: FAMOTIDINE 20 MG INJ IV SCH (20:10)
[2019-04-27] MEDS: ATORVASTATIN 40 MG TAB PO SCH (20:11)
[2019-04-28] VITALS (15 sets, daily range): BP systolic 106–184; BP diastolic 55–78; PULSE 63–88; RESP 15–22
[2019-04-28] MEDS ORDERED: hydrALAzine 20 MG INJ IV ONE (01:00)
[2019-04-28] MEDS: INSULIN ASPART [NOVOLOG] 3 ML PEN SC SCH ×5 (05:00→21:00)
[2019-04-28] MEDS: POLYETHYLENE GLYCOL 3350 119 GM POWDER PO ONE (06:00)
[2019-04-28] MEDS: HEPARIN 5,000 UNIT/1 ML VIAL SC SCH ×3 (06:00→21:15)
[2019-04-28] MEDS: PANTOPRAZOLE (EC) 40 MG TAB PO SCH (07:30)
[2019-04-28] MEDS ORDERED: BISACODYL (EC) 5 MG TAB PO ONE (08:00)
[2019-04-28] MEDS: AMLODIPINE 5 MG TAB PO SCH (08:22)
[2019-04-28] MEDS: ESCITALOPRAM 10 MG TAB PO SCH (08:22)
[2019-04-28] MEDS: NYSTATIN 30 GM POWDER BTL TOP SCH ×2 (08:23→20:14)
[2019-04-28] MEDS: SUCRALFATE (100 MG/ML) 10ML CUP PO SCH ×4 (08:25→20:01)
[2019-04-28] MEDS: L ACIDOPHIL/B LACTIS/B LONGUM CAPSULE PO SCH ×2 (08:25→20:01)
[2019-04-28] MEDS ORDERED: AMLODIPINE 5 MG TAB PO ONE (11:00)
--- NOTE | 2019-04-28 11:30 | CONS ---
Assessment/Plan Assessment/Plan Hospital Course (Demo Recall) All noted, no acute events over night Urine culture on April 17 grew Klebsiella pneumoniae and E. coli both susceptible to cefotaxime and Ancef also tobramycin Antimicrobials: Tobramycin Physical examination: Obese well-developed elderly woman who is awake in no distress. Head atraumatic normocephalic sclera nonicteric vehicle mucosa dry neck is obese chest rise symmetrical breath sounds diminished bases heart S1-S2 abdomen soft bowel sounds present extremities without cyanosis Assessment: 1. Recurrent UTI 2. Morbid obesity 3. Diabetes 4. Hypertension 5. Diarrhea, C. difficile negative Plan: Stable, plan for EGD on colonoscopy, abx for 2 more days Consultation Date/Type/Reason Admit Date/Time Apr 23, 2019 at 18:26 Initial Consult Date Type of Consult id Date/Time of Note DATE: 04/28/19 TIME: 11:29 Exam/Review of Systems Exam Vitals Vital Signs Date Temp Pulse Resp B/P (MAP) Pulse Ox O2 O2 Flow FiO2 Time Delivery Rate 04/28/19 98.1 66 19 167/74 100 Room Air 08:00 (105) Intake and Output 04/27/19 04/27/19 04/28/19 1515:00 23:00 07:00 IntakeIntake Total 600 ml 907 ml 765 ml OutputOutput Total 650 ml 1450 ml BalanceBalance -50 ml -543 ml 765 ml Results Result Diagram: 04/28/1918 04/28/19 0518 Results 24hrs Laboratory Tests Test 04/27/19 12:16 04/27/19 17:30 04/27/19 20:08 04/28/19 01:42 Bedside Glucose 112 101 110 103 Test 04/28/19 05:18 04/28/19 06:01 04/28/19 08:21 White Blood Count 12.8 H Red Blood Count 3.72 L Hemoglobin 9.5 L Hematocrit 31.6 L Mean Corpuscular 84.9 Volume Mean Corpuscular 25.5 L Hemoglobin Mean Corpuscular 30.1 L Hemoglobin Concent Red Cell 17.7 H Distribution Width Platelet Count 403 Mean Platelet Volume 9.8 Immature 3.600 H Granulocytes % Neutrophils % 68.6 Lymphocytes % 17.7 Monocytes % 7.9 Eosinophils % 1.6 Basophils % 0.6 Nucleated Red Blood 0.0 Cells % Immature 0.460 H Granulocytes # Neutrophils # 8.7 H Lymphocytes # 2.3 Monocytes # 1.0 H Eosinophils # 0.2 Basophils # 0.1 Nucleated Red Blood 0.0 Cells # Prothrombin Time 11.8 L Prothrombin Time 0.9 Ratio INR International 0.86 Normalized Ratio Sodium Level 142 Potassium Level 4.0 Chloride Level 112 H Carbon Dioxide Level 23 Anion Gap 7 Blood Urea Nitrogen 8 Creatinine 0.99 Est Glomerular 56 L Filtrat Rate mL/min Glucose Level 100 Calcium Level 9.2 Phosphorus Level 2.9 Magnesium Level 1.9 Bedside Glucose 98 103 Medications Medication Current Medications Atorvastatin Calcium (Lipitor) 40 mg QHS PO Last administered on 04/27/19 20:11; Admin Dose 40 MG; Start 04/23/19 at 21:00 Clonidine (Catapres) 0.1 mg TID PRN PO ELEVATED BLOOD PRESSURE Last administered on 04/27/19 20:11; Admin Dose 0.1 MG; Start 04/23/19 at 20:00 Escitalopram Oxalate (Lexapro) 10 mg DAILY PO Last administered on 04/28/19 08:22; Admin Dose 10 MG; Start 04/24/19 at 09:00 Pantoprazole (Protonix Tab) 40 mg AC BREAKFAST PO Last administered on 04/27/19 08:33; Admin Dose 40 MG; Start 04/24/19 at 07:00 IV Flush (NS 3 ml) 3 ml PER PROTOCOL IV ; Start 04/23/19 at 20:00 Ondansetron HCl (Zofran Inj) 4 mg Q6H PRN IV NAUSEA/VOMITING Last administered on 04/24/19 12:15; Admin Dose 4 MG; Start 04/23/19 at 20:00 Acetaminophen (Tylenol Tab) 650 mg Q6H PRN PO .PAIN 1-3 OR TEMP; Start 04/23/19 at 20:00 Morphine Sulfate (morphine) 2 mg Q4H PRN IV .SEVERE PAIN 7-10 Last administered on 04/25/19 12:27; Admin Dose 2 MG; Start 04/23/19 at 20:00 Docusate Sodium (Colace) 100 mg Q12H PRN PO .CONSTIPATION; Start 04/23/19 at 20:00 Bisacodyl (Dulcolax) 5 mg DAILY PRN PO .CONSTIPATION; Start 04/23/19 at 20:00 Heparin Sodium (Porcine) (Heparin (5000 Units/1ml)) 5,000 unit Q8 SC Last adm inistered on 04/27/19at 06:06; Admin Dose 5,000 UNIT; Start 04/23/19 at 22:00 Lactobacillus Acidophilus (Florajen3 Capsule) 1 each BID PO Last administered on 04/27/19at 20:11; Admin Dose 1 EACH; Start 04/23/19 at 21:00 Miscellaneous Information 1 ea NOTE XX ; Start 04/23/19 at 20:30 Glucose (Glutose) 15 gm Q15M PRN PO DECREASED GLUCOSE; Start 04/23/19 at 20:30 Glucose (Glutose) 22.5 gm Q15M PRN PO DECREASED GLUCOSE; Start 04/23/19 at 20:30 Dextrose (D50w Syringe) 25 ml Q15M PRN IV DECREASED GLUCOSE; Start 04/23/19 at 20:30 Dextrose (D50w Syringe) 50 ml Q15M PRN IV DECREASED GLUCOSE; Start 04/23/19 at 20:30 Glucagon (Glucagen) 1 mg Q15M PRN IM DECREASED GLUCOSE; Start 04/23/19 at 20:30 Glucose (Glutose) 15 gm Q15M PRN BUCCAL DECREASED GLUCOSE; Start 04/23/19 at 20:30 Miscellaneous Information (Pending [facility] Order For Wound Care) This patient munguia... PRN PRN XX WOUND CARE; Start 04/24/19 at 05:00 Sucralfate (Carafate Susp) 1 gm QID PO Last administered on 04/27/19at 20:11; Admin Dose 1 GM; Start 04/24/19 at 17:00 Sodium Chloride 1,000 ml @ 50 mls/hr Q20H IV Last administered on 04/27/19at 18:34; Admin Dose 50 MLS/HR; Start 04/24/19 at 14:00 Tobramycin (Tobramycin Iv Per Pharmacy) TOBRAMYCIN PER PHARMACY NOTE XX ; Start 04/24/19 at 16:00 Tobramycin 80 mg/ Sodium Chloride 52 ml @ 104 mls/hr Q24H IVPB Last administered on 04/27/19at 17:31; Admin Dose 104 MLS/HR; Start 04/24/19 at 17:00 Nystatin (Nystatin Powder) 1 applic BID TOP Last administered on 04/28/19at 08:23; Admin Dose 1 APPLIC; Start 04/24/19 at 21:00 Famotidine (Pepcid Iv) 20 mg QHS IV Last administered on 04/27/19at 20:10; Admin Dose 20 MG; Start 04/26/19 at 21:00 Metoclopramide HCl (Reglan) 5 mg Q6 PRN IV n/v; Start 04/27/19 at 09:30 Insulin Aspart (Novolog Insulin Pen) NOVOLOG *MILD* ALGORI... Q4 SC ; Start 04/28/19 at 05:00 Amlodipine Besylate (Norvasc) 10 mg DAILY PO ; Start 04/29/19 at 09:00 Hydralazine HCl (Apresoline) 10 mg Q4H PRN IV sbp >160; Start 04/28/19 at 11:00 ANA MARIA ZULETA NP Apr 28, 2019 11:30
--- NOTE | 2019-04-28 15:51 | PREAC ---
Date/Time of Note Date/Time of Note DATE: 04/28/19 TIME: 15:50 Anesthesia Eval and Record Evaluation Time Pre-Procedure Interview DATE: 04/28/19 TIME: 15:50 Age 64 Sex female NPO: 8 hrs Preoperative diagnosis nausea, diarrhea Planned procedure EGD, colonoscopy Past Medical History Past Medical History: Includes Cardio: HTN, Dyslipidemia Endo: Diabetes Renal: Other (UTI) GI: Obesity, Other (diarrhea ) Surgery & Anesthesia Issues No known issue Meds Anticoagulation: No Beta Diana within 24 hr: No Reason Beta Diana not given: Pt. not on B-Diana Reported Medications Atorvastatin* (Atorvastatin*) 40 Mg Tablet, 40 MG PO QHS, #30 TAB 04/23/19 Escitalopram Oxalate* (Escitalopram Oxalate*) 10 Mg Tablet, 10 MG PO NEEDED, #30 TAB 04/23/19 Pantoprazole* (Pantoprazole*) 40 Mg Tablet.dr, 40 MG PO AC BREAKFAST, TAB 04/23/19 Glimepiride* (Glimepiride*) 1 Mg Tablet, 1 MG PO WITH BREAKFAST PRN for NEEDED, TAB 04/23/19 Clonidine Hcl* (Clonidine Hcl*) 0.1 Mg Tab, 0.1 MG PO TID, TAB 04/23/19 Discontinued Reported Medications Atorvastatin* (Atorvastatin*) 40 Mg Tablet, 40 MG PO QHS, #30 TAB 04/18/19 Atorvastatin Calcium* (Atorvastatin Calcium*) 20 Mg Tablet, 20 MG PO QHS, #30 TAB 04/18/19 Furosemide* (Furosemide*) 20 Mg Tablet, 20 MG PO BID for 30 Days, #60 04/18/19 Discontinued Scripts Ondansetron Hcl* (Ondansetron Hcl*) 4 Mg Tablet, 4 MG PO Q6H PRN for NAUSEA, #8 TAB Prov:NOEMÍ TAPIA MD 04/21/19 Nitrofurantoin Macrocrystal* (Nitrofurantoin Macrocrystal*) 100 Mg Capsule, 100 MG PO BID for 5 Days, #10 CAP Prov:NOEMÍ TAPIA MD 04/21/19 Clonidine Hcl* (Clonidine Hcl*) 0.1 Mg Tab, 0.1 MG PO TID PRN for ELEVATED BLOOD PRESSURE for 30 Days, #90 TAB If SBP >170, take one tablet by mouth Prov:KAREN GARNER MD 2/23/18 Pantoprazole* (Protonix*) 40 Mg Tablet.dr, 40 MG PO BID, #60 TAB Prov:JEAN MARIE HERNANDEZ VNicko ZAMORA 10/26/17 Current Medications Atorvastatin Calcium (Lipitor) 40 mg QHS PO Last administered on 04/27/19 20:11; Admin Dose 40 MG; Start 04/23/19 at 21:00 Clonidine (Catapres) 0.1 mg TID PRN PO ELEVATED BLOOD PRESSURE Last administered on 04/27/19 20:11; Admin Dose 0.1 MG; Start 04/23/19 at 20:00 Escitalopram Oxalate (Lexapro) 10 mg DAILY PO Last administered on 04/28/19 08:22; Admin Dose 10 MG; Start 04/24/19 at 09:00 Pantoprazole (Protonix Tab) 40 mg AC BREAKFAST PO Last administered on 04/27/19 08:33; Admin Dose 40 MG; Start 04/24/19 at 07:00 IV Flush (NS 3 ml) 3 ml PER PROTOCOL IV ; Start 04/23/19 at 20:00 Ondansetron HCl (Zofran Inj) 4 mg Q6H PRN IV NAUSEA/VOMITING Last administered on 04/24/19 12:15; Admin Dose 4 MG; Start 04/23/19 at 20:00 Acetaminophen (Tylenol Tab) 650 mg Q6H PRN PO .PAIN 1-3 OR TEMP; Start 04/23/19 at 20:00 Morphine Sulfate (morphine) 2 mg Q4H PRN IV .SEVERE PAIN 7-10 Last administered on 04/25/19 12:27; Admin Dose 2 MG; Start 04/23/19 at 20:00 Docusate Sodium (Colace) 100 mg Q12H PRN PO .CONSTIPATION; Start 04/23/19 at 20:00 Bisacodyl (Dulcolax) 5 mg DAILY PRN PO .CONSTIPATION; Start 04/23/19 at 20:00 Heparin Sodium (Porcine) (Heparin (5000 Units/1ml)) 5,000 unit Q8 SC Last administered on 04/27/19 06:06; Admin Dose 5,000 UNIT; Start 04/23/19 at 22:00 Lactobacillus Acidophilus (Florajen3 Capsule) 1 each BID PO Last administered on 04/27/19 20:11; Admin Dose 1 EACH; Start 04/23/19 at 21:00 Miscellaneous Information 1 ea NOTE XX ; Start 04/23/19 at 20:30 Glucose (Glutose) 15 gm Q15M PRN PO DECREASED GLUCOSE; Start 04/23/19 at 20:30 Glucose (Glutose) 22.5 gm Q15M PRN PO DECREASED GLUCOSE; Start 04/23/19 at 20 :30 Dextrose (D50w Syringe) 25 ml Q15M PRN IV DECREASED GLUCOSE; Start 04/23/19 at 20:30 Dextrose (D50w Syringe) 50 ml Q15M PRN IV DECREASED GLUCOSE; Start 04/23/19 at 20:30 Glucagon (Glucagen) 1 mg Q15M PRN IM DECREASED GLUCOSE; Start 04/23/19 at 20:30 Glucose (Glutose) 15 gm Q15M PRN BUCCAL DECREASED GLUCOSE; Start 04/23/19 at 20:30 Miscellaneous Information (Pending [facility] Order For Wound Care) This patient munguia... PRN PRN XX WOUND CARE; Start 04/24/19 at 05:00 Sucralfate (Carafate Susp) 1 gm QID PO Last administered on 04/27/19at 20:11; Admin Dose 1 GM; Start 04/24/19 at 17:00 Sodium Chloride 1,000 ml @ 50 mls/hr Q20H IV Last administered on 04/27/19at 18:34; Admin Dose 50 MLS/HR; Start 04/24/19 at 14:00 Tobramycin (Tobramycin Iv Per Pharmacy) TOBRAMYCIN PER PHARMACY NOTE XX ; Start 04/24/19 at 16:00 Tobramycin 80 mg/ Sodium Chloride 52 ml @ 104 mls/hr Q24H IVPB Last administer ed on 04/27/19at 17:31; Admin Dose 104 MLS/HR; Start 04/24/19 at 17:00 Nystatin (Nystatin Powder) 1 applic BID TOP Last administered on 04/28/19at 08:23; Admin Dose 1 APPLIC; Start 04/24/19 at 21:00 Famotidine (Pepcid Iv) 20 mg QHS IV Last administered on 04/27/19at 20:10; Admin Dose 20 MG; Start 04/26/19 at 21:00 Metoclopramide HCl (Reglan) 5 mg Q6 PRN IV n/v; Start 04/27/19 at 09:30 Insulin Aspart (Novolog Insulin Pen) NOVOLOG *MILD* ALGORI... Q4 SC ; Start 04/28/19 at 05:00 Amlodipine Besylate (Norvasc) 10 mg DAILY PO ; Start 04/29/19 at 09:00 Hydralazine HCl (Apresoline) 10 mg Q4H PRN IV sbp >160; Start 04/28/19 at 11:00 Meds reviewed: Yes Allergies Coded Allergies: nitrofurantoin (Unverified Allergy, Unknown, itching and skin rashes, 04/23/19) Allergies Reviewed: Yes Labs/Studies Labs Reviewed: Reviewed by anesthesiologist Result Diagram: 04/28/1951704/28/19517 Laboratory Tests 04/28/19 05:18 test: N/A Pre-procedure Exam Last vitals Vital Signs Date Temp Pulse Resp B/P (MAP) Pulse Ox O2 O2 Flow FiO2 Time Delivery Rate 04/28/19 154/69 11:00 (97) 04/28/19 98.1 66 19 100 Room Air 08:00 Airway: Adequate mouth opening, Adequate thyromental dist Mallampati: Mallampati II Teeth: Normal Lung: Normal Heart: Normal ASA Physical Status ASA physical status: 2 Emergency: None Planned Anesthetic General/MAC: Mask Planned Pain Management Parenteral pain med Pre-operative Attestations Prior to commencing anesthesia and surgery, the patient was re-evaluated, there was verification of: *The patient's identity *The results of appropriate recent lab work and preoperative vital signs *The above evaluation not changing prior to induction *Anesthetic plan, risk benefits, alternative and complications discussed with patient/family; questions answered; patient/family understands, accepts and wishes to proceed. Counseling Department Chair used NELSON MEIER MD Apr 28, 2019 15:51
[2019-04-28] MEDS ORDERED: ONDANSETRON 4 MG INJ IV PRN (16:00)
[2019-04-28] MEDS ORDERED: hydrALAzine 20 MG INJ IV PRN (16:00)
[2019-04-28] MEDS ORDERED: EPHEDrine 25 MG/5 ML SYG IV PRN (16:00)
[2019-04-28] MEDS ORDERED: LABETALOL HCL 20MG INJ IV PRN (16:00)
--- NOTE | 2019-04-28 16:11 | PN ---
Date/Time of Note Date/Time of Note DATE: 04/28/19 TIME: 16:07 Objective Vitals Vital Signs Date Temp Pulse Resp B/P (MAP) Pulse Ox O2 O2 Flow FiO2 Time Delivery Rate 04/28/19 154/69 11:00 (97) 04/28/19 98.1 66 19 100 Room Air 08:00 Intake and Output 04/27/19 04/27/19 04/28/19 1515:00 23:00 07:00 IntakeIntake Total 600 ml 907 ml 765 ml OutputOutput Total 650 ml 1450 ml BalanceBalance -50 ml -543 ml 765 ml Results Result Diagram: 04/28/1951704/28/1918 Medications Medications Current Medications Atorvastatin Calcium (Lipitor) 40 mg QHS PO Last administered on 04/27/19at 20:11; Admin Dose 40 MG; Start 04/23/19 at 21:00 Clonidine (Catapres) 0.1 mg TID PRN PO ELEVATED BLOOD PRESSURE Last administered on 04/27/19at 20:11; Admin Dose 0.1 MG; Start 04/23/19 at 20:00 Escitalopram Oxalate (Lexapro) 10 mg DAILY PO Last administered on 04/28/19at 08:22; Admin Dose 10 MG; Start 04/24/19 at 09:00 Pantoprazole (Protonix Tab) 40 mg AC BREAKFAST PO Last administered on 04/27/19at 08:33; Admin Dose 40 MG; Start 04/24/19 at 07:00 IV Flush (NS 3 ml) 3 ml PER PROTOCOL IV ; Start 04/23/19 at 20:00 Ondansetron HCl (Zofran Inj) 4 mg Q6H PRN IV NAUSEA/VOMITING Last administered on 04/24/19at 12:15; Admin Dose 4 MG; Start 04/23/19 at 20:00 Acetaminophen (Tylenol Tab) 650 mg Q6H PRN PO .PAIN 1-3 OR TEMP; Start 04/23/19 at 20:00 Morphine Sulfate (morphine) 2 mg Q4H PRN IV .SEVERE PAIN 7-10 Last administered on 04/25/19at 12:27; Admin Dose 2 MG; Start 04/23/19 at 20:00 Docusate Sodium (Colace) 100 mg Q12H PRN PO .CONSTIPATION; Start 04/23/19 at 20:00 Bisacodyl (Dulcolax) 5 mg DAILY PRN PO .CONSTIPATION; Start 04/23/19 at 20:00 Heparin Sodium (Porcine) (Heparin (5000 Units/1ml)) 5,000 unit Q8 SC Last administered on 04/27/19at 06:06; Admin Dose 5,000 UNIT; Start 04/23/19 at 22:00 Lactobacillus Acidophilus (Florajen3 Capsule) 1 each BID PO Last administered on 04/27/19at 20:11; Admin Dose 1 EACH; Start 04/23/19 at 21:00 Miscellaneous Information 1 ea NOTE XX ; Start 04/23/19 at 20:30 Glucose (Glutose) 15 gm Q15M PRN PO DECREASED GLUCOSE; Start 04/23/19 at 20:30 Glucose (Glutose) 22.5 gm Q15M PRN PO DECREASED GLUCOSE; Start 04/23/19 at 20:30 Dextrose (D50w Syringe) 25 ml Q15M PRN IV DECREASED GLUCOSE; Start 04/23/19 at 20:30 Dextrose (D50w Syringe) 50 ml Q15M PRN IV DECREASED GLUCOSE; Start 04/23/19 at 20:30 Glucagon (Glucagen) 1 mg Q15M PRN IM DECREASED GLUCOSE; Start 04/23/19 at 20:30 Glucose (Glutose) 15 gm Q15M PRN BUCCAL DECREASED GLUCOSE; Start 04/23/19 at 20:30 Miscellaneous Information (Pending [facility] Order For Wound Care) This patient munguia... PRN PRN XX WOUND CARE; Start 04/24/19 at 05:00 Sucralfate (Carafate Susp) 1 gm QID PO Last administered on 04/27/19at 20:11; Admin Dose 1 GM; Start 04/24/19 at 17:00 Sodium Chloride 1,000 ml @ 50 mls/hr Q20H IV Last administered on 04/27/19at 18:34; Admin Dose 50 MLS/HR; Start 04/24/19 at 14:00 Tobramycin (Tobramycin Iv Per Pharmacy) TOBRAMYCIN PER PHARMACY NOTE XX ; Start 04/24/19 at 16:00 Tobramycin 80 mg/ Sodium Chloride 52 ml @ 104 mls/hr Q24H IVPB Last administered on 04/27/19at 17:31; Admin Dose 104 MLS/HR; Start 04/24/19 at 17:00 Nystatin (Nystatin Powder) 1 applic BID TOP Last administered on 04/28/19at 08:23; Admin Dose 1 APPLIC; Start 04/24/19 at 21:00 Famotidine (Pepcid Iv) 20 mg QHS IV Last administered on 04/27/19at 20:10; Admin Dose 20 MG; Start 04/26/19 at 21:00 Metoclopramide HCl (Reglan) 5 mg Q6 PRN IV n/v; Start 04/27/19 at 09:30 Insulin Aspart (Novolog Insulin Pen) NOVOLOG *MILD* ALGORI... Q4 SC ; Start 04/28/19 at 05:00 Amlodipine Besylate (Norvasc) 10 mg DAILY PO ; Start 04/29/19 at 09:00 Hydralazine HCl (Apresoline) 10 mg Q4H PRN IV sbp >160; Start 04/28/19 at 11:00 Ondansetron HCl (Zofran Inj) 4 mg PACU ORDER PRN IV NAUSEA/VOMITING; Start 04/28/19 at 16:00; Stop 04/28/19 at 20:00 Labetalol HCl (Labetalol) 5 mg PACU ORDER PRN IV HIGH BLOOD PRESSURE; Start 04/28/19 at 16:00; Stop 04/28/19 at 20:00 Hydralazine HCl (Apresoline) 5 mg PACU ORDER PRN IV HIGH BLOOD PRESSURE; Start 04/28/19 at 16:00; Stop 04/28/19 at 20:00 Ephedrine Sulfate 5 mg PACU ORDER PRN IV BLOOD PRESSURE SUPPORT; Start 04/28/19 at 16:00; Stop 04/28/19 at 20:00 VTE Prophylaxis Risk score (from Nsg)>0 risk: 3 SCD applied (from Nsg): No SCD contraindication: other Lines/Catheters IV Catheter Type: Krishna in Place: No Assessment/Plan Hospital Course Subjective Patient states still having diarrhea and occasional nausea Objective Physical exam General: Patient is laying in bed and answers questions appropriately Mentation: Patient is alert and oriented 4, Head: Normocephalic atraumatic Eyes: EOMI, pupils reactive to light Neck: Supple, nontender, midline Respiratory: Clear to auscultation bilaterally Cardiovascular: regular rate, no obvious murmurs Gastrointestinal: non-tender to palpation, bowel sounds heard. Neurological: Moves all extremities spontaneously Skin: No new skin lesions Assessment and plan Nausea and vomiting, acute on chronic -Stable, patient states that this happened after she took the oral antibiotic at home, however upon further questioning this appears to be happening anytime she eats and has been going on for a long time. - IV antibiotic -We will try to have some stomach relief with Carafate and Protonix for now -GI consulted, likely endoscopy soon. -Nausea has improved however patient was on scheduled Reglan. Urinary tract infection -Infectious disease on board, appears patient was discharged previously on nitrofurantoin -Continue abx for now Diarrhea -Pending stool studies, c dif neg -Infectious disease consulted - diarrhea is intermittent since admission, will monitor, once again unsure if this is secondary to antibiotic versus other pathology -Patient has no abdominal pain Hypertension -Home meds as needed Diabetes mellitus -We will do insulin sliding scale Dyslipidemia -Continue home medications History of urinary tract infection -Patient has a history of multidrug-resistant UTIs Disposition -GI consulted, upper and lower endoscopy scheduled for today due to persistent symptoms LINDA BOYLE Apr 28, 2019 16:11
--- NOTE | 2019-04-28 18:00 | PAC ---
Date/Time of Note Date/Time of Note DATE: 04/28/19 TIME: 17:59 Post-Anesthesia Notes Post-Anesthesia Note Last documented vital signs Vital Signs Date Temp Pulse Resp B/P (MAP) Pulse Ox O2 O2 Flow FiO2 Time Delivery Rate 04/28/19 98.5 77 18 177/77 98 Room Air 16:47 (110) Activity: WNL Respiratory function: WNL Cardiovascular function: WNL Mental status: Baseline Pain reasonably controlled: Yes Hydration appropriate: Yes Nausea/Vomiting absent: Yes Comments BP: 98/60 HR: 62 RR: 15 T: 98 SaO2: 100% NELSON MEIER MD Apr 28, 2019 18:00
[2019-04-28] MEDS ORDERED: LIDOCAINE 2% (SDV) 5 ML INJ ONE (18:02)
[2019-04-28] MEDS ORDERED: PROPOFOL 40 ML ONE (18:02)
[2019-04-28] MEDS ORDERED: PROPOFOL 200 MG INJ ONE (18:02)
--- NOTE | 2019-04-28 18:40 | PAC ---
Date/Time of Note Date/Time of Note DATE: 04/28/19 TIME: 18:39 Post-Anesthesia Notes Post-Anesthesia Note Last documented vital signs Vital Signs Date Temp Pulse Resp B/P (MAP) Pulse Ox O2 O2 Flow FiO2 Time Delivery Rate 04/28/19 98.5 77 18 177/77 98 Room Air 16:47 (110) Activity: WNL Respiratory function: WNL Cardiovascular function: WNL Mental status: Baseline Pain reasonably controlled: Yes Hydration appropriate: Yes Nausea/Vomiting absent: Yes Comments BP: 107/60 HR: 83 RR: 15 T: 98 SaO2: 98% NELSON MEIER MD Apr 28, 2019 18:40
[2019-04-28] MEDS: hydrALAzine 20 MG INJ IV PRN (20:00)
[2019-04-28] MEDS: FAMOTIDINE 20 MG INJ IV SCH (20:01)
[2019-04-28] MEDS: TOBRAMYCIN 80 MG in SOD CHLORIDE 0.9% 50 ML IVPB SCH (20:01)
[2019-04-28] MEDS: SOD CHLORIDE 0.45% 1,000 ML IV SCH (20:01)
[2019-04-28] MEDS: ATORVASTATIN 40 MG TAB PO SCH (20:03)
[2019-04-28] MEDS ORDERED: LORAZEPAM 1 MG TAB PO ONE (22:30)
[2019-04-28] MEDS ORDERED: LORAZEPAM 0.5 MG TAB ONE (22:37)
[2019-04-28] MEDS ORDERED: LORAZEPAM 0.5 MG TAB PO PRN (23:00)
[2019-04-29 02:00] VITALS: BP 131/60; PULSE 76; RESP 18
[2019-04-29] MEDS ORDERED: LOPERAMIDE 2 MG CAP PO PRN ×2 (05:00→12:30)
[2019-04-29] MEDS: PANTOPRAZOLE (EC) 40 MG TAB PO SCH (05:14)
[2019-04-29] MEDS: HEPARIN 5,000 UNIT/1 ML VIAL SC SCH ×3 (05:17→22:26)
[2019-04-29] MEDS: INSULIN ASPART [NOVOLOG] 3 ML PEN SC SCH ×4 (08:00→20:26)
[2019-04-29] MEDS: ONDANSETRON 4 MG INJ IV PRN (08:02)
[2019-04-29] MEDS: L ACIDOPHIL/B LACTIS/B LONGUM CAPSULE PO SCH ×2 (08:07→20:25)
[2019-04-29] MEDS: ESCITALOPRAM 10 MG TAB PO SCH (08:07)
[2019-04-29] MEDS: SUCRALFATE (100 MG/ML) 10ML CUP PO SCH (08:07)
[2019-04-29] MEDS: AMLODIPINE 10 MG TAB PO SCH (08:07)
[2019-04-29 08:08] VITALS: BP 170/74; PULSE 73; RESP 17
[2019-04-29] MEDS: ACETAMINOPHEN 325 MG TAB PO PRN (08:16)
[2019-04-29] MEDS: LISINOPRIL 10 MG TAB PO SCH (09:29)
[2019-04-29] MEDS: NYSTATIN 30 GM POWDER BTL TOP SCH ×2 (09:30→20:27)
[2019-04-29 09:31] VITALS: BP 160/70; PULSE 74
[2019-04-29 11:16] VITALS: BP 146/68; PULSE 71
--- NOTE | 2019-04-29 12:23 | PN ---
Date/Time of Note Date/Time of Note DATE: 04/29/19 TIME: 12:19 Assessment/Plan VTE Prophylaxis Risk score (from [facility] [place]0 risk: 2 SCD applied (from Ns): Yes Pharmacological prophylaxis: other (scds) Lines/Catheters IV Catheter Type (from [facility]): Sal[place] Lock Urinary Cath still in place: No Assessment/Plan Hospital Course Summary Assessment and Plan: Assessment: Nausea/vomiting EGD 04/28/2019 Moderate distal esophagitis. Moderate gastritis. Rule out internal infection. Biopsies obtained. Evidence of previous gastrostomy tube site well-healed. Otherwise normal EGD. Diarrhea Colonoscopy 04/28/2019 3 mm sessile polyp in the ascending colon, ablated. Moderate diverticulosis of the colon. Moderate-sized internal and large external hemorrhoids. Otherwise normal colonoscopy -Stool studies -CDIFF- Negative -O&P- Negative -Stool COLIFORM, ELYSSA ALBICANS Normocytic anemia Abdominal cramping- improved UTI currently on antibiotics DM Dyslipidemia Pretension Plan: Review pathology Repeat colonoscopy in 5 years Levsin PRN Stop sucralfate Continue PPI Patient seen in collaboration with Dr. Vasquez Subjective: Course reviewed with nursing staff Patient interviewed and examined All labs, imaging and other results reviewed Discussed results of EGD/colonoscopy. Patient verbalized understanding. Patient continues to complain of some nausea and poor appetite. Encouraged to eat small meals instead of having one large meal. Will consider adding boost if needed Exam PHYSICAL EXAMINATION: GENERAL: Alert & oriented x 3, in no acute distress SKIN: No lesions, HEAD: Normocephalic, atraumatic, no tenderness. EYES: Pupils equal reactive to light and accommodation, full extraocular movements, sclera clear, non-icteric, no discharge. EARS/NOSE AND THROAT: Ears normal, nose normal, oropharynx normal, oral membranes well hydrated without lesions. NECK: Supple, no masses. CHEST: Inspection within normal limits. CARDIOVASCULAR: Heart: Regular rate and rhythm RESPIRATORY: Lungs clear to auscultation GASTROINTESTINAL AND LIVER: Abdomen: Soft, mild lower abd tenderness, non- distended, no hernias, no masses, no organomegaly, no ascites, no guarding, no rebound tenderness, normoactive bowel sounds. Rectal: Deferred. GENITOURINARY:Female genitalia within normal limits. EXTREMITIES: No cyanosis, clubbing or edema. Result Diagram: 04/29/19 0436 04/29/19 0436 Results 24hrs Laboratory Tests Test 04/28/19 13:07 04/28/19 16:58 04/28/19 20:07 04/29/19 04:36 Bedside Glucose 86 94 89 White Blood Count 14.0 H Red Blood Count 3.85 L Hemoglobin 9.7 L Hematocrit 32.3 L Mean Corpuscular 83.9 Volume Mean Corpuscular 25.2 L Hemoglobin Mean Corpuscular 30.0 L Hemoglobin Concent Red Cell 17.7 H Distribution Width Platelet Count 435 H Mean Platelet Volume 9.6 Immature 4.400 H Granulocytes % Neutrophils % 67.6 Lymphocytes % 18.1 Monocytes % 7.4 Eosinophils % 1.6 Basophils % 0.9 Nucleated Red Blood 0.1 H Cells % Immature 0.620 H Granulocytes # Neutrophils # 9.5 H Lymphocytes # 2.5 Monocytes # 1.0 H Eosinophils # 0.2 Basophils # 0.1 Nucleated Red Blood 0.0 Cells # Sodium Level 140 Potassium Level 3.7 Chloride Level 110 Carbon Dioxide Level 20 L Anion Gap 10 Blood Urea Nitrogen 7 Creatinine 0.84 Est Glomerular > 60 Filtrat Rate mL/min Glucose Level 90 Calcium Level 9.1 Phosphorus Level 3.6 Magnesium Level 1.7 Test 04/29/19 08:11 Bedside Glucose 92 Exam/Review of Systems Exam Vitals Vital Signs Date Temp Pulse Resp B/P (MAP) Pulse Ox O2 O2 Flow FiO2 Time Delivery Rate 04/29/19 71 146/68 11:16 (94) 04/29/19 98.0 17 96 08:08 04/28/19 Room Air 19:10 04/28/19 2.0 18:45 Intake and Output 04/28/19 04/28/19 04/29/19 1515:00 23:00 07:00 IntakeIntake Total 52 ml 1100 ml OutputOutput Total 1000 ml 300 ml 1400 ml BalanceBalance -1000 ml -248 ml -300 ml Results Results 24hrs Laboratory Tests Test 04/28/19 13:07 04/28/19 16:58 04/28/19 20:07 04/29/19 04:36 Bedside Glucose 86 94 89 White Blood Count 14.0 H Red Blood Count 3.85 L Hemoglobin 9.7 L Hematocrit 32.3 L Mean Corpuscular 83.9 Volume Mean Corpuscular 25.2 L Hemoglobin Mean Corpuscular 30.0 L Hemoglobin Concent Red Cell 17.7 H Distribution Width Platelet Count 435 H Mean Platelet Volume 9.6 Immature 4.400 H Granulocytes % Neutrophils % 67.6 Lymphocytes % 18.1 Monocytes % 7.4 Eosinophils % 1.6 Basophils % 0.9 Nucleated Red Blood 0.1 H Cells % Immature 0.620 H Granulocytes # Neutrophils # 9.5 H Lymphocytes # 2.5 Monocytes # 1.0 H Eosinophils # 0.2 Basophils # 0.1 Nucleated Red Blood 0.0 Cells # Sodium Level 140 Potassium Level 3.7 Chloride Level 110 Carbon Dioxide Level 20 L Anion Gap 10 Blood Urea Nitrogen 7 Creatinine 0.84 Est Glomerular > 60 Filtrat Rate mL/min Glucose Level 90 Calcium Level 9.1 Phosphorus Level 3.6 Magnesium Level 1.7 Test 04/29/19 08:11 Bedside Glucose 92 Medications Medication Current Medications Atorvastatin Calcium (Lipitor) 40 mg QHS PO Last administered on 04/28/19 20:03; Admin Dose 40 MG; Start 04/23/19 at 21:00 Clonidine (Catapres) 0.1 mg TID PRN PO ELEVATED BLOOD PRESSURE Last administered on 04/28/19 22:48; Admin Dose 0.1 MG; Start 04/23/19 at 20:00 Escitalopram Oxalate (Lexapro) 10 mg DAILY PO Last administered on 04/29/19 08:07; Admin Dose 10 MG; Start 04/24/19 at 09:00 IV Flush (NS 3 ml) 3 ml PER PROTOCOL IV ; Start 04/23/19 at 20:00 Ondansetron HCl (Zofran Inj) 4 mg Q6H PRN IV NAUSEA/VOMITING Last administered on 04/29/19 08:02; Admin Dose 4 MG; Start 04/23/19 at 20:00 Acetaminophen (Tylenol Tab) 650 mg Q6H PRN PO .PAIN 1-3 OR TEMP Last administered on 04/29/19 08:16; Admin Dose 650 MG; Start 04/23/19 at 20:00 Morphine Sulfate (morphine) 2 mg Q4H PRN IV .SEVERE PAIN 7-10 Last administered on 04/25/19 12:27; Admin Dose 2 MG; Start 04/23/19 at 20:00 Docusate Sodium (Colace) 100 mg Q12H PRN PO .CONSTIPATION; Start 04/23/19 at 20:00 Bisacodyl (Dulcolax) 5 mg DAILY PRN PO .CONSTIPATION; Start 04/23/19 at 20:00 Heparin Sodium (Porcine) (Heparin (5000 Units/1ml)) 5,000 unit Q8 SC Last administered on 04/29/19at 05:17; Admin Dose 5,000 UNIT; Start 04/23/19 at 22:00 Lactobacillus Acidophilus (Florajen3 Capsule) 1 each BID PO Last administered on 04/29/19at 08:07; Admin Dose 1 EACH; Start 04/23/19 at 21:00 Miscellaneous Information 1 ea NOTE XX ; Start 04/23/19 at 20:30 Glucose (Glutose) 15 gm Q15M PRN PO DECREASED GLUCOSE; Start 04/23/19 at 20:30 Glucose (Glutose) 22.5 gm Q15M PRN PO DECREASED GLUCOSE; Start 04/23/19 at 20:30 Dextrose (D50w Syringe) 25 ml Q15M PRN IV DECREASED GLUCOSE; Start 04/23/19 at 20:30 Dextrose (D50w Syringe) 50 ml Q15M PRN IV DECREASED GLUCOSE; Start 04/23/19 at 20:30 Glucagon (Glucagen) 1 mg Q15M PRN IM DECREASED GLUCOSE; Start 04/23/19 at 20:30 Glucose (Glutose) 15 gm Q15M PRN BUCCAL DECREASED GLUCOSE; Start 04/23/19 at 20:30 Miscellaneous Information (Pending [facility] Order For Wound Care) This patient munguia... PRN PRN XX WOUND CARE; Start 04/24/19 at 05:00 Sucralfate (Carafate Susp) 1 gm QID PO Last administered on 04/29/19at 08:07; Admin Dose 1 GM; Start 04/24/19 at 17:00 Sodium Chloride 1,000 ml @ 50 mls/hr Q20H IV Last administered on 04/27/19at 18:34; Admin Dose 50 MLS/HR; Start 04/24/19 at 14:00 Tobramycin (Tobramycin Iv Per Pharmacy) TOBRAMYCIN PER PHARMACY NOTE XX ; Start 04/24/19 at 16:00 Tobramycin 80 mg/ Sodium Chloride 52 ml @ 104 mls/hr Q24H IVPB Last administered on 04/28/19at 20:01; Admin Dose 104 MLS/HR; Start 04/24/19 at 17:00 Nystatin (Nystatin Powder) 1 applic BID TOP Last administered on 04/29/19at 09:30; Admin Dose 1 APPLIC; Start 04/24/19 at 21:00 Metoclopramide HCl (Reglan) 5 mg Q6 PRN IV n/v; Start 04/27/19 at 09:30 Amlodipine Besylate (Norvasc) 10 mg DAILY PO Last administered on 04/29/19at 08:07; Admin Dose 10 MG; Start 04/29/19 at 09:00 Hydralazine HCl (Apresoline) 10 mg Q4H PRN IV sbp >160 Last administered on 04/28/19at 20:00; Admin Dose 10 MG; Start 04/28/19 at 11:00 Pantoprazole (Protonix Tab) 40 mg DAILY@06 PO Last administered on 04/29/19at 05:14; Admin Dose 40 MG; Start 04/29/19 at 06:00 Insulin Aspart (Novolog Insulin Pen) NOVOLOG *MILD* ALGORITHM WITH MEALS BEDTIME SC ; Start 04/29/19 at 08:00 Lisinopril (Zestril) 10 mg DAILY PO Last administered on 04/29/19at 09:29; Admin Dose 10 MG; Start 04/29/19 at 09:30 BALTA HENDERSON Apr 29, 2019 12:22
[2019-04-29] MEDS ORDERED: HYOSCYAMINE 0.125 MG SUBL TAB SL PRN (12:30)
--- NOTE | 2019-04-29 13:12 | PN ---
Date/Time of Note Date/Time of Note DATE: 04/29/19 TIME: 13:10 Objective Vitals Vital Signs Date Temp Pulse Resp B/P (MAP) Pulse Ox O2 O2 Flow FiO2 Time Delivery Rate 04/29/19 71 146/68 11:16 (94) 04/29/19 98.0 17 96 08:08 04/28/19 Room Air 19:10 04/28/19 2.0 18:45 Intake and Output 04/28/19 04/28/19 04/29/19 1515:00 23:00 07:00 IntakeIntake Total 52 ml 1100 ml OutputOutput Total 1000 ml 300 ml 1400 ml BalanceBalance -1000 ml -248 ml -300 ml Results Result Diagram: 04/29/19 0436 04/29/19 0436 Medications Medications Current Medications Atorvastatin Calcium (Lipitor) 40 mg QHS PO Last administered on 04/28/19at 20:03; Admin Dose 40 MG; Start 04/23/19 at 21:00 Clonidine (Catapres) 0.1 mg TID PRN PO ELEVATED BLOOD PRESSURE Last administered on 04/28/19at 22:48; Admin Dose 0.1 MG; Start 04/23/19 at 20:00 Escitalopram Oxalate (Lexapro) 10 mg DAILY PO Last administered on 04/29/19at 08:07; Admin Dose 10 MG; Start 04/24/19 at 09:00 IV Flush (NS 3 ml) 3 ml PER PROTOCOL IV ; Start 04/23/19 at 20:00 Ondansetron HCl (Zofran Inj) 4 mg Q6H PRN IV NAUSEA/VOMITING Last administered on 04/29/19at 08:02; Admin Dose 4 MG; Start 04/23/19 at 20:00 Acetaminophen (Tylenol Tab) 650 mg Q6H PRN PO .PAIN 1-3 OR TEMP Last administered on 04/29/19 08:16; Admin Dose 650 MG; Start 04/23/19 at 20:00 Morphine Sulfate (morphine) 2 mg Q4H PRN IV .SEVERE PAIN 7-10 Last administered on 04/25/19at 12:27; Admin Dose 2 MG; Start 04/23/19 at 20:00 Docusate Sodium (Colace) 100 mg Q12H PRN PO .CONSTIPATION; Start 04/23/19 at 20:00 Bisacodyl (Dulcolax) 5 mg DAILY PRN PO .CONSTIPATION; Start 04/23/19 at 20:00 Heparin Sodium (Porcine) (Heparin (5000 Units/1ml)) 5,000 unit Q8 SC Last administered on 04/29/19at 05:17; Admin Dose 5,000 UNIT; Start 04/23/19 at 22:00 Lactobacillus Acidophilus (Florajen3 Capsule) 1 each BID PO Last administered on 04/29/19at 08:07; Admin Dose 1 EACH; Start 04/23/19 at 21:00 Miscellaneous Information 1 ea NOTE XX ; Start 04/23/19 at 20:30 Glucose (Glutose) 15 gm Q15M PRN PO DECREASED GLUCOSE; Start 04/23/19 at 20:30 Glucose (Glutose) 22.5 gm Q15M PRN PO DECREASED GLUCOSE; Start 04/23/19 at 20:30 Dextrose (D50w Syringe) 25 ml Q15M PRN IV DECREASED GLUCOSE; Start 04/23/19 at 20:30 Dextrose (D50w Syringe) 50 ml Q15M PRN IV DECREASED GLUCOSE; Start 04/23/19 at 20:30 Glucagon (Glucagen) 1 mg Q15M PRN IM DECREASED GLUCOSE; Start 04/23/19 at 20:30 Glucose (Glutose) 15 gm Q15M PRN BUCCAL DECREASED GLUCOSE; Start 04/23/19 at 20:30 Miscellaneous Information (Pending [facility] Order For Wound Care) This patient mungiua... PRN PRN XX WOUND CARE; Start 04/24/19 at 05:00 Sodium Chloride 1,000 ml @ 50 mls/hr Q20H IV Last administered on 04/27/19at 18:34; Admin Dose 50 MLS/HR; Start 04/24/19 at 14:00 Tobramycin (Tobramycin Iv Per Pharmacy) TOBRAMYCIN PER PHARMACY NOTE XX ; Start 04/24/19 at 16:00 Tobramycin 80 mg/ Sodium Chloride 52 ml @ 104 mls/hr Q24H IVPB Last administered on 04/28/19at 20:01; Admin Dose 104 MLS/HR; Start 04/24/19 at 17:00 Nystatin (Nystatin Powder) 1 applic BID TOP Last administered on 04/29/19at 09:30; Admin Dose 1 APPLIC; Start 04/24/19 at 21:00 Metoclopramide HCl (Reglan) 5 mg Q6 PRN IV n/v; Start 04/27/19 at 09:30 Amlodipine Besylate (Norvasc) 10 mg DAILY PO Last administered on 04/29/19at 08:07; Admin Dose 10 MG; Start 04/29/19 at 09:00 Hydralazine HCl (Apresoline) 10 mg Q4H PRN IV sbp >160 Last administered on 04/28/19at 20:00; Admin Dose 10 MG; Start 04/28/19 at 11:00 Pantoprazole (Protonix Tab) 40 mg DAILY@06 PO Last administered on 04/29/19at 05:14; Admin Dose 40 MG; Start 04/29/19 at 06:00 Insulin Aspart (Novolog Insulin Pen) NOVOLOG *MILD* ALGORITHM WITH MEALS BEDTIME SC ; Start 04/29/19 at 08:00 Lisinopril (Zestril) 10 mg DAILY PO Last administered on 04/29/19at 09:29; Admin Dose 10 MG; Start 04/29/19 at 09:30 Hyoscyamine (Levsin (Sl)) 0.125 mg Q4H PRN SL ab cramping; Start 04/29/19 at 12:30 Loperamide HCl (Imodium Cap) 2 mg BID PRN PO DIARRHEA; Start 04/29/19 at 12:30 Miscellaneous Information (*Rx Drug Level Order Reminder*) TOBRAMYCIN TR ON @ 600 1600 ONCE XX ; Start 04/30/19 at 16:00; Stop 04/30/19 at 16:01 Miscellaneous Information (*Rx Drug Level Order Reminder*) TOBRAMYCIN PEAK ON @ 1,800 1800 ONCE XX ; Start 04/30/19 at 18:00; Stop 04/30/19 at 18:01 VTE Prophylaxis Risk score (from Nsg)>0 risk: 2 SCD applied (from Nsg): Yes Lines/Catheters IV Catheter Type: Krishna in Place: No Assessment/Plan Hospital Course Subjective Patient states still having diarrhea and occasional nausea Objective Physical exam General: Patient is laying in bed and answers questions appropriately Mentation: Patient is alert and oriented 4, Head: Normocephalic atraumatic Eyes: EOMI, pupils reactive to light Neck: Supple, nontender, midline Respiratory: Clear to auscultation bilaterally Cardiovascular: regular rate, no obvious murmurs Gastrointestinal: non-tender to palpation, bowel sounds heard. Neurological: Moves all extremities spontaneously Skin: No new skin lesions Assessment and plan Nausea and vomiting, acute on chronic -Stable, patient states that this happened after she took the oral antibiotic at home, however upon further questioning this appears to be happening anytime she eats and has been going on for a long time. -We will try to have some stomach relief with Carafate and Protonix for now -GI consulted, patient had upper endoscopy and colonoscopy, showing gastritis but no significant issues, continue PPI, GI also added Levsin Urinary tract infection -Infectious disease on board, appears patient was discharged previously on nitrofurantoin -Continue abx for now Diarrhea -Pending stool studies, c dif neg -Infectious disease consulted - diarrhea is intermittent since admission, will monitor, once again unsure if this is secondary to antibiotic versus other pathology -Patient has no abdominal pain -Patient had colonoscopy, no acute issues, GI started loperamide Hypertension -Home meds as needed -We will add new medications as needed Diabetes mellitus -We will do insulin sliding scale Dyslipidemia -Continue home medications History of urinary tract infection -Patient has a history of multidrug-resistant UTIs Disposition -Patient still having some symptoms with food intake, GI recommendations appreciated, added Levsin and Imodium and will reassess tomorrow. LINDA BOYLE Apr 29, 2019 13:12
--- NOTE | 2019-04-29 13:28 | CONS ---
Assessment/Plan Assessment/Plan Hospital Course (Demo Recall) ID PROGRESS NOTE CURRENT ABX: DAY # => Tobramycin 04/29/196 04/29/19 0436 24H INTERVAL SUMMARY * Alert, overweight elder, VSS, NAD, no fevers -- stable post EGD/[place] * Urine culture on April 17 grew Klebsiella pneumoniae and E. coli both susceptible to cefotaxime and Ancef also tobramycin DIAGNOSTIC IMAGING * 04/27/19 CXR: PHYSICAL EXAMINATION: GENERAL: VSS, NAD HEENT: AT, NC, NECK: Supple, CHEST: Rise symmetrical HEART: Pulse RRR ABDOMEN: Benign EXTREMITIES: Warm, dry SKIN: No rash, no diaphoresis ID ASSESSMENT 64 yo F admit with: 1. Recurrent UTI 2. Morbid obesity 3. Diabetes 4. Hypertension 5. Nausea/vomiting EGD 04/28/2019 Moderate distal esophagitis. Moderate gastritis. Rule out internal infection. Biopsies obtained. Evidence of previous gastrostomy tube site well-healed. Otherwise normal EGD. 6. Diarrhea Colonoscopy 04/28/2019 3 mm sessile polyp in the ascending colon, ablated. Moderate diverticulosis of the colon. Moderate-sized internal and large external hemorrhoids. Otherwise normal colonoscopy -Stool studies -CDIFF- Negative -O&P- Negative -Stool COLIFORM, ELYSSA ALBICANS (-)MRSA Nares ABX ALLERGIES: KNDA INVASIVES: PIV CURRENT ABX: DAY # Tobramycin ID RECOMMENDATIONS/PLAN: 1. Continue ABX last day SUN night Consultation Date/Type/Reason Admit Date/Time Apr 23, 2019 at 18:26 Initial Consult Date 04/26/19 Date/Time of Note DATE: 04/29/19 TIME: 13:28 Exam/Review of Systems Exam Vitals Vital Signs Date Temp Pulse Resp B/P (MAP) Pulse Ox O2 O2 Flow FiO2 Time Delivery Rate 04/29/19 71 146/68 11:16 (94) 04/29/19 98.0 17 96 08:08 04/28/19 Room Air 19:10 04/28/19 2.0 18:45 Intake and Output 04/28/19 04/28/19 04/29/19 1515:00 23:00 07:00 IntakeIntake Total 52 ml 1100 ml OutputOutput Total 1000 ml 300 ml 1400 ml BalanceBalance -1000 ml -248 ml -300 ml Results Result Diagram: 04/29/19 0436 04/29/19 0436 Results 24hrs Laboratory Tests Test 04/28/19 16:58 04/28/19 20:07 04/29/19 04:36 04/29/19 08:11 Bedside Glucose 94 89 92 White Blood Count 14.0 H Red Blood Count 3.85 L Hemoglobin 9.7 L Hematocrit 32.3 L Mean Corpuscular 83.9 Volume Mean Corpuscular 25.2 L Hemoglobin Mean Corpuscular 30.0 L Hemoglobin Concent Red Cell 17.7 H Distribution Width Platelet Count 435 H Mean Platelet Volume 9.6 Immature 4.400 H Granulocytes % Neutrophils % 67.6 Lymphocytes % 18.1 Monocytes % 7.4 Eosinophils % 1.6 Basophils % 0.9 Nucleated Red Blood 0.1 H Cells % Immature 0.620 H Granulocytes # Neutrophils # 9.5 H Lymphocytes # 2.5 Monocytes # 1.0 H Eosinophils # 0.2 Basophils # 0.1 Nucleated Red Blood 0.0 Cells # Sodium Level 140 Potassium Level 3.7 Chloride Level 110 Carbon Dioxide Level 20 L Anion Gap 10 Blood Urea Nitrogen 7 Creatinine 0.84 Est Glomerular > 60 Filtrat Rate mL/min Glucose Level 90 Calcium Level 9.1 Phosphorus Level 3.6 Magnesium Level 1.7 Test 04/29/19 12:19 Bedside Glucose 81 Medications Medication Current Medications Atorvastatin Calcium (Lipitor) 40 mg QHS PO Last administered on 04/28/19at 20:03; Admin Dose 40 MG; Start 04/23/19 at 21:00 Clonidine (Catapres) 0.1 mg TID PRN PO ELEVATED BLOOD PRESSURE Last administered on 04/28/19at 22:48; Admin Dose 0.1 MG; Start 04/23/19 at 20:00 Escitalopram Oxalate (Lexapro) 10 mg DAILY PO Last administered on 04/29/19at 08:07; Admin Dose 10 MG; Start 04/24/19 at 09:00 IV Flush (NS 3 ml) 3 ml PER PROTOCOL IV ; Start 04/23/19 at 20:00 Ondansetron HCl (Zofran Inj) 4 mg Q6H PRN IV NAUSEA/VOMITING Last administered on 04/29/19at 08:02; Admin Dose 4 MG; Start 04/23/19 at 20:00 Acetaminophen (Tylenol Tab) 650 mg Q6H PRN PO .PAIN 1-3 OR TEMP Last administered on 04/29/19at 08:16; Admin Dose 650 MG; Start 04/23/19 at 20:00 Morphine Sulfate (morphine) 2 mg Q4H PRN IV .SEVERE PAIN 7-10 Last administered on 04/25/19at 12:27; Admin Dose 2 MG; Start 04/23/19 at 20:00 Docusate Sodium (Colace) 100 mg Q12H PRN PO .CONSTIPATION; Start 04/23/19 at 20:00 Bisacodyl (Dulcolax) 5 mg DAILY PRN PO .CONSTIPATION; Start 04/23/19 at 20:00 Heparin Sodium (Porcine) (Heparin (5000 Units/1ml)) 5,000 unit Q8 SC Last administered on 04/29/19at 05:17; Admin Dose 5,000 UNIT; Start 04/23/19 at 22:00 Lactobacillus Acidophilus (Florajen3 Capsule) 1 each BID PO Last administered on 04/29/19at 08:07; Admin Dose 1 EACH; Start 04/23/19 at 21:00 Miscellaneous Information 1 ea NOTE XX ; Start 04/23/19 at 20:30 Glucose (Glutose) 15 gm Q15M PRN PO DECREASED GLUCOSE; Start 04/23/19 at 20:30 Glucose (Glutose) 22.5 gm Q15M PRN PO DECREASED GLUCOSE; Start 04/23/19 at 20:30 Dextrose (D50w Syringe) 25 ml Q15M PRN IV DECREASED GLUCOSE; Start 04/23/19 at 20:30 Dextrose (D50w Syringe) 50 ml Q15M PRN IV DECREASED GLUCOSE; Start 04/23/19 at 20:30 Glucagon (Glucagen) 1 mg Q15M PRN IM DECREASED GLUCOSE; Start 04/23/19 at 20:30 Glucose (Glutose) 15 gm Q15M PRN BUCCAL DECREASED GLUCOSE; Start 04/23/19 at 20:30 Miscellaneous Information (Pending [facility] Order For Wound Care) This patient munguia... PRN PRN XX WOUND CARE; Start 04/24/19 at 05:00 Sodium Chloride 1,000 ml @ 50 mls/hr Q20H IV Last administered on 04/27/19at 18:34; Admin Dose 50 MLS/HR; Start 04/24/19 at 14:00 Tobramycin (Tobramycin Iv Per Pharmacy) TOBRAMYCIN PER PHARMACY NOTE XX ; Start 04/24/19 at 16:00 Tobramycin 80 mg/ Sodium Chloride 52 ml @ 104 mls/hr Q24H IVPB Last administered on 04/28/19at 20:01; Admin Dose 104 MLS/HR; Start 04/24/19 at 17:00 Nystatin (Nystatin Powder) 1 applic BID TOP Last administered on 04/29/19at 09: 30; Admin Dose 1 APPLIC; Start 04/24/19 at 21:00 Metoclopramide HCl (Reglan) 5 mg Q6 PRN IV n/v; Start 04/27/19 at 09:30 Amlodipine Besylate (Norvasc) 10 mg DAILY PO Last administered on 04/29/19at 0 8:07; Admin Dose 10 MG; Start 04/29/19 at 09:00 Hydralazine HCl (Apresoline) 10 mg Q4H PRN IV sbp >160 Last administered on 04/28/19at 20:00; Admin Dose 10 MG; Start 04/28/19 at 11:00 Pantoprazole (Protonix Tab) 40 mg DAILY@06 PO Last administered on 04/29/19at 05:14; Admin Dose 40 MG; Start 04/29/19 at 06:00 Insulin Aspart (Novolog Insulin Pen) NOVOLOG *MILD* ALGORITHM WITH MEALS BEDTIME SC ; Start 04/29/19 at 08:00 Lisinopril (Zestril) 10 mg DAILY PO Last administered on 04/29/19at 09:29; Admin Dose 10 MG; Start 04/29/19 at 09:30 Hyoscyamine (Levsin (Sl)) 0.125 mg Q4H PRN SL ab cramping; Start 04/29/19 at 12:30 Loperamide HCl (Imodium Cap) 2 mg BID PRN PO DIARRHEA; Start 04/29/19 at 12:30 Miscellaneous Information (*Rx Drug Level Order Reminder*) TOBRAMYCIN TR ON @ 600 1600 ONCE XX ; Start 04/30/19 at 16:00; Stop 04/30/19 at 16:01 Miscellaneous Information (*Rx Drug Level Order Reminder*) TOBRAMYCIN PEAK ON @ 1,800 1800 ONCE XX ; Start 04/30/19 at 18:00; Stop 04/30/19 at 18:01 EDDI SCHWARTZ NP Apr 29, 2019 13:28
[2019-04-29] MEDS: SOD CHLORIDE 0.45% 1,000 ML IV SCH (14:10)
[2019-04-29 15:06] VITALS: BP 136/63; PULSE 73; RESP 18
[2019-04-29] MEDS: TOBRAMYCIN 80 MG in SOD CHLORIDE 0.9% 50 ML IVPB SCH (17:45)
[2019-04-29 20:00] VITALS: BP 144/65; PULSE 68; RESP 18
[2019-04-29] MEDS: ATORVASTATIN 40 MG TAB PO SCH (20:25)
[2019-04-30] VITALS (7 sets, daily range): BP systolic 125–171; BP diastolic 67–76; PULSE 74–88; RESP 17–18
[2019-04-30] MEDS: PANTOPRAZOLE (EC) 40 MG TAB PO SCH (06:00)
[2019-04-30] MEDS: HEPARIN 5,000 UNIT/1 ML VIAL SC SCH ×3 (06:03→21:36)
[2019-04-30] MEDS: ONDANSETRON 4 MG INJ IV PRN (06:07)
[2019-04-30] MEDS: INSULIN ASPART [NOVOLOG] 3 ML PEN SC SCH ×4 (07:44→20:48)
[2019-04-30] MEDS: DEXTROSE 5%-0.45% NACL 1,000 ML IV SCH (08:03)
[2019-04-30] MEDS: NYSTATIN 30 GM POWDER BTL TOP SCH ×2 (09:20→20:48)
[2019-04-30] MEDS: ESCITALOPRAM 10 MG TAB PO SCH (09:54)
[2019-04-30] MEDS: L ACIDOPHIL/B LACTIS/B LONGUM CAPSULE PO SCH ×2 (09:54→20:48)
[2019-04-30] MEDS: AMLODIPINE 10 MG TAB PO SCH (09:54)
[2019-04-30] MEDS: LISINOPRIL 10 MG TAB PO SCH (09:54)
[2019-04-30] MEDS ORDERED: MAGNESIUM SULFATE 2 GM/50 ML 50 ML IVPB ONE (10:00)
[2019-04-30] MEDS: POTASSIUM CHLORIDE 100 ML IVPB SCH ×2 (12:17→14:42)
--- NOTE | 2019-04-30 12:54 | PN ---
Date/Time of Note Date/Time of Note DATE: 04/30/19 TIME: 12:50 Assessment/Plan VTE Prophylaxis Risk score (from Ns)>0 risk: 2 SCD applied (from Ns): Yes Pharmacological prophylaxis: other (scds) Lines/Catheters [facility] ([facility] Peripheral IV Urinary Cath still in place: No Assessment/Plan Hospital Course Summary Assessment and Plan: Assessment: Nausea/vomiting EGD 04/28/2019 Moderate distal esophagitis. Moderate gastritis. Rule out internal infection. Biopsies obtained. Evidence of previous gastrostomy tube site well-healed. Otherwise normal EGD. Diarrhea Colonoscopy 04/28/2019 3 mm sessile polyp in the ascending colon, ablated. Moderate diverticulosis of the colon. Moderate-sized internal and large external hemorrhoids. Otherwise normal colonoscopy -Stool studies -CDIFF- Negative -O&P- Negative -Stool COLIFORM, ELYSSA ALBICANS Normocytic anemia Abdominal cramping- improved UTI currently on antibiotics DM Dyslipidemia Pretension Plan: Review pathology Repeat colonoscopy in 5 years Levsin PRN Continue PPI Reglan 5 mg Iv q 6hrs Encourage getting OOB, deep breathing conisder gastric empyting study if n/v does not improve Patient seen in collaboration with Dr. Vasquez Subjective: Course reviewed with nursing staff Patient interviewed and examined All labs, imaging and other results reviewed Pt continues to have poor appetite with nausea. Had patient sit at edge of bed, pt felt nauseated and began to almost force her self to vomit. Discussed importance of not doing that. No over signs of GI bleed. No episodes of diarrhea over night. If nausea does not improve will order gastric empting study in am. Exam PHYSICAL EXAMINATION: GENERAL: Alert & oriented x 3, in no acute distress SKIN: No lesions, HEAD: Normocephalic, atraumatic, no tenderness. EYES: Pupils equal reactive to light and accommodation, full extraocular movements, sclera clear, non-icteric, no discharge. EARS/NOSE AND THROAT: Ears normal, nose normal, oropharynx normal, oral membranes well hydrated without lesions. NECK: Supple, no masses. CHEST: Inspection within normal limits. CARDIOVASCULAR: Heart: Regular rate and rhythm RESPIRATORY: Lungs clear to auscultation GASTROINTESTINAL AND LIVER: Abdomen: Soft, mild lower abd tenderness, non- distended, no hernias, no masses, no organomegaly, no ascites, no guarding, no rebound tenderness, normoactive bowel sounds. Rectal: Deferred. GENITOURINARY:Female genitalia within normal limits. EXTREMITIES: No cyanosis, clubbing or edema. Result Diagram: 04/30/199 04/30/19428 Results 24hrs Laboratory Tests Test 04/29/19 17:14 04/29/19 20:22 04/30/19 04:29 04/30/19 07:41 Bedside Glucose 79 130 82 White Blood Count 14.9 H Red Blood Count 3.72 L Hemoglobin 9.4 L Hematocrit 31.4 L Mean Corpuscular 84.4 Volume Mean Corpuscular 25.3 L Hemoglobin Mean Corpuscular 29.9 L Hemoglobin Concent Red Cell 17.8 H Distribution Width Platelet Count 403 Mean Platelet Volume 9.8 Immature 4.500 H Granulocytes % Neutrophils % 69.3 Lymphocytes % 16.1 Monocytes % 7.0 Eosinophils % 2.6 Basophils % 0.5 Nucleated Red Blood 0.0 Cells % Immature 0.670 H Granulocytes # Neutrophils # 10.3 H Lymphocytes # 2.4 Monocytes # 1.1 H Eosinophils # 0.4 Basophils # 0.1 Nucleated Red Blood 0.0 Cells # Sodium Level 133 L Potassium Level 3.3 L Chloride Level 105 Carbon Dioxide Level 19 L Anion Gap 9 Blood Urea Nitrogen 6 L Creatinine 0.85 Est Glomerular > 60 Filtrat Rate mL/min Glucose Level 86 Calcium Level 8.8 Phosphorus Level 3.2 Magnesium Level 1.4 L Test 04/30/19 11:51 Bedside Glucose 103 Exam/Review of Systems Exam Vitals Vital Signs Date Temp Pulse Resp B/P (MAP) Pulse Ox O2 O2 Flow FiO2 Time Delivery Rate 04/30/19 99.4 76 11:16 04/30/19 18 136/70 98 08:02 (92) 04/28/19 Room Air 19:10 04/28/19 2.0 18:45 Intake and Output 04/29/19 04/29/19 04/30/19 1515:00 23:00 07:00 IntakeIntake Total 670 ml 412 ml 840 ml OutputOutput Total 400 ml 400 ml 600 ml BalanceBalance 270 ml 12 ml 240 ml Results Results 24hrs Laboratory Tests Test 04/29/19 17:14 04/29/19 20:22 04/30/19 04:29 04/30/19 07:41 Bedside Glucose 79 130 82 White Blood Count 14.9 H Red Blood Count 3.72 L Hemoglobin 9.4 L Hematocrit 31.4 L Mean Corpuscular 84.4 Volume Mean Corpuscular 25.3 L Hemoglobin Mean Corpuscular 29.9 L Hemoglobin Concent Red Cell 17.8 H Distribution Width Platelet Count 403 Mean Platelet Volume 9.8 Immature 4.500 H Granulocytes % Neutrophils % 69.3 Lymphocytes % 16.1 Monocytes % 7.0 Eosinophils % 2.6 Basophils % 0.5 Nucleated Red Blood 0.0 Cells % Immature 0.670 H Granulocytes # Neutrophils # 10.3 H Lymphocytes # 2.4 Monocytes # 1.1 H Eosinophils # 0.4 Basophils # 0.1 Nucleated Red Blood 0.0 Cells # Sodium Level 133 L Potassium Level 3.3 L Chloride Level 105 Carbon Dioxide Level 19 L Anion Gap 9 Blood Urea Nitrogen 6 L Creatinine 0.85 Est Glomerular > 60 Filtrat Rate mL/min Glucose Level 86 Calcium Level 8.8 Phosphorus Level 3.2 Magnesium Level 1.4 L Test 04/30/19 11:51 Bedside Glucose 103 Medications Medication Current Medications Atorvastatin Calcium (Lipitor) 40 mg QHS PO Last administered on 04/29/19 20:25; Admin Dose 40 MG; Start 04/23/19 at 21:00 Clonidine (Catapres) 0.1 mg TID PRN PO ELEVATED BLOOD PRESSURE Last administered on 04/28/19 22:48; Admin Dose 0.1 MG; Start 04/23/19 at 20:00 Escitalopram Oxalate (Lexapro) 10 mg DAILY PO Last administered on 04/30/19 09:54; Admin Dose 10 MG; Start 04/24/19 at 09:00 IV Flush (NS 3 ml) 3 ml PER PROTOCOL IV ; Start 04/23/19 at 20:00 Ondansetron HCl (Zofran Inj) 4 mg Q6H PRN IV NAUSEA/VOMITING Last administered on 04/30/19at 06:07; Admin Dose 4 MG; Start 04/23/19 at 20:00 Acetaminophen (Tylenol Tab) 650 mg Q6H PRN PO .PAIN 1-3 OR TEMP Last administered on 04/29/19 08:16; Admin Dose 650 MG; Start 04/23/19 at 20:00 Morphine Sulfate (morphine) 2 mg Q4H PRN IV .SEVERE PAIN 7-10 Last administered on 04/25/19at 12:27; Admin Dose 2 MG; Start 04/23/19 at 20:00 Docusate Sodium (Colace) 100 mg Q12H PRN PO .CONSTIPATION; Start 04/23/19 at 20:00 Bisacodyl (Dulcolax) 5 mg DAILY PRN PO .CONSTIPATION; Start 04/23/19 at 20:00 Heparin Sodium (Porcine) (Heparin (5000 Units/1ml)) 5,000 unit Q8 SC Last admi nistered on 04/30/19at 06:03; Admin Dose 5,000 UNIT; Start 04/23/19 at 22:00 Lactobacillus Acidophilus (Florajen3 Capsule) 1 each BID PO Last administered on 04/30/19at 09:54; Admin Dose 1 EACH; Start 04/23/19 at 21:00 Miscellaneous Information 1 ea NOTE XX ; Start 04/23/19 at 20:30 Glucose (Glutose) 15 gm Q15M PRN PO DECREASED GLUCOSE; Start 04/23/19 at 20:30 Glucose (Glutose) 22.5 gm Q15M PRN PO DECREASED GLUCOSE; Start 04/23/19 at 20:30 Dextrose (D50w Syringe) 25 ml Q15M PRN IV DECREASED GLUCOSE; Start 04/23/19 at 20:30 Dextrose (D50w Syringe) 50 ml Q15M PRN IV DECREASED GLUCOSE; Start 04/23/19 at 20:30 Glucagon (Glucagen) 1 mg Q15M PRN IM DECREASED GLUCOSE; Start 04/23/19 at 20:30 Glucose (Glutose) 15 gm Q15M PRN BUCCAL DECREASED GLUCOSE; Start 04/23/19 at 20:30 Miscellaneous Information (Pending [facility] Order For Wound Care) This patient munguia... PRN PRN XX WOUND CARE; Start 04/24/19 at 05:00 Tobramycin (Tobramycin Iv Per Pharmacy) TOBRAMYCIN PER PHARMACY NOTE XX ; Start 04/24/19 at 16:00 Tobramycin 80 mg/ Sodium Chloride 52 ml @ 104 mls/hr Q24H IVPB Last administered on 04/29/19at 17:45; Admin Dose 104 MLS/HR; Start 04/24/19 at 17:00 Nystatin (Nystatin Powder) 1 applic BID TOP Last administered on 04/30/19at 09:20; Admin Dose 1 APPLIC; Start 04/24/19 at 21:00 Amlodipine Besylate (Norvasc) 10 mg DAILY PO Last administered on 04/30/19at 09:54; Admin Dose 10 MG; Start 04/29/19 at 09:00 Hydralazine HCl (Apresoline) 10 mg Q4H PRN IV sbp >160 Last administered on 04/28/19at 20:00; Admin Dose 10 MG; Start 04/28/19 at 11:00 Pantoprazole (Protonix Tab) 40 mg DAILY@06 PO Last administered on 04/30/19at 06:00; Admin Dose 40 MG; Start 04/29/19 at 06:00 Insulin Aspart (Novolog Insulin Pen) NOVOLOG *MILD* ALGORITHM WITH MEALS BEDTIME SC ; Start 04/29/19 at 08:00 Lisinopril (Zestril) 10 mg DAILY PO Last administered on 04/30/19at 09:54; Admin Dose 10 MG; Start 04/29/19 at 09:30 Hyoscyamine (Levsin (Sl)) 0.125 mg Q4H PRN SL ab cramping; Start 04/29/19 at 12:30 Loperamide HCl (Imodium Cap) 2 mg BID PRN PO DIARRHEA; Start 04/29/19 at 12:30 Miscellaneous Information (*Rx Drug Level Order Reminder*) TOBRAMYCIN TR ON @ 600 1600 ONCE XX ; Start 04/30/19 at 16:00; Stop 04/30/19 at 16:01 Miscellaneous Information (*Rx Drug Level Order Reminder*) TOBRAMYCIN PEAK ON @ 1,800 1800 ONCE XX ; Start 04/30/19 at 18:00; Stop 04/30/19 at 18:01 Dextrose/Sodium Chloride 1,000 ml @ 50 mls/hr Q20H IV Last administered on 04/30/19at 08:03; Admin Dose 50 MLS/HR; Start 04/30/19 at 08:00 Potassium Chloride 100 ml @ 50 mls/hr Q2H IVPB Last administered on 04/30/19at 12:17; Admin Dose 50 MLS/HR; Start 04/30/19 at 10:00; Stop 04/30/19 at 13:59 Metoclopramide HCl (Reglan) 5 mg Q6 IV ; Start 04/30/19 at 18:00 BALTA HENDERSON Apr 30, 2019 12:54
--- NOTE | 2019-04-30 13:40 | PN ---
Date/Time of Note Date/Time of Note DATE: 04/30/19 TIME: 13:38 Objective Vitals Vital Signs Date Temp Pulse Resp B/P (MAP) Pulse Ox O2 O2 Flow FiO2 Time Delivery Rate 04/30/19 99.4 76 11:16 04/30/19 18 136/70 98 08:02 (92) 04/28/19 Room Air 19:10 04/28/19 2.0 18:45 Intake and Output 04/29/19 04/29/19 04/30/19 1515:00 23:00 07:00 IntakeIntake Total 670 ml 412 ml 840 ml OutputOutput Total 400 ml 400 ml 600 ml BalanceBalance 270 ml 12 ml 240 ml Results Result Diagram: 04/30/19 0429 04/30/19 0429 Medications Medications Current Medications Atorvastatin Calcium (Lipitor) 40 mg QHS PO Last administered on 04/29/19 20:25; Admin Dose 40 MG; Start 04/23/19 at 21:00 Clonidine (Catapres) 0.1 mg TID PRN PO ELEVATED BLOOD PRESSURE Last administered on 04/28/19at 22:48; Admin Dose 0.1 MG; Start 04/23/19 at 20:00 Escitalopram Oxalate (Lexapro) 10 mg DAILY PO Last administered on 04/30/19at 09:54; Admin Dose 10 MG; Start 04/24/19 at 09:00 IV Flush (NS 3 ml) 3 ml PER PROTOCOL IV ; Start 04/23/19 at 20:00 Ondansetron HCl (Zofran Inj) 4 mg Q6H PRN IV NAUSEA/VOMITING Last administered on 04/30/19at 06:07; Admin Dose 4 MG; Start 04/23/19 at 20:00 Acetaminophen (Tylenol Tab) 650 mg Q6H PRN PO .PAIN 1-3 OR TEMP Last administered on 04/29/19 08:16; Admin Dose 650 MG; Start 04/23/19 at 20:00 Morphine Sulfate (morphine) 2 mg Q4H PRN IV .SEVERE PAIN 7-10 Last administered on 04/25/19at 12:27; Admin Dose 2 MG; Start 04/23/19 at 20:00 Docusate Sodium (Colace) 100 mg Q12H PRN PO .CONSTIPATION; Start 04/23/19 at 20:00 Bisacodyl (Dulcolax) 5 mg DAILY PRN PO .CONSTIPATION; Start 04/23/19 at 20:00 Heparin Sodium (Porcine) (Heparin (5000 Units/1ml)) 5,000 unit Q8 SC Last administered on 04/30/19at 06:03; Admin Dose 5,000 UNIT; Start 04/23/19 at 22:00 Lactobacillus Acidophilus (Florajen3 Capsule) 1 each BID PO Last administered on 04/30/19at 09:54; Admin Dose 1 EACH; Start 04/23/19 at 21:00 Miscellaneous Information 1 ea NOTE XX ; Start 04/23/19 at 20:30 Glucose (Glutose) 15 gm Q15M PRN PO DECREASED GLUCOSE; Start 04/23/19 at 20:30 Glucose (Glutose) 22.5 gm Q15M PRN PO DECREASED GLUCOSE; Start 04/23/19 at 20:30 Dextrose (D50w Syringe) 25 ml Q15M PRN IV DECREASED GLUCOSE; Start 04/23/19 at 20:30 Dextrose (D50w Syringe) 50 ml Q15M PRN IV DECREASED GLUCOSE; Start 04/23/19 at 20:30 Glucagon (Glucagen) 1 mg Q15M PRN IM DECREASED GLUCOSE; Start 04/23/19 at 20:30 Glucose (Glutose) 15 gm Q15M PRN BUCCAL DECREASED GLUCOSE; Start 04/23/19 at 20:30 Miscellaneous Information (Pending [facility] Order For Wound Care) This patient munguia... PRN PRN XX WOUND CARE; Start 04/24/19 at 05:00 Tobramycin (Tobramycin Iv Per Pharmacy) TOBRAMYCIN PER PHARMACY NOTE XX ; Start 04/24/19 at 16:00 Tobramycin 80 mg/ Sodium Chloride 52 ml @ 104 mls/hr Q24H IVPB Last administered on 04/29/19at 17:45; Admin Dose 104 MLS/HR; Start 04/24/19 at 17:00 Nystatin (Nystatin Powder) 1 applic BID TOP Last administered on 04/30/19at 09:20; Admin Dose 1 APPLIC; Start 04/24/19 at 21:00 Amlodipine Besylate (Norvasc) 10 mg DAILY PO Last administered on 04/30/19at 09:54; Admin Dose 10 MG; Start 04/29/19 at 09:00 Hydralazine HCl (Apresoline) 10 mg Q4H PRN IV sbp >160 Last administered on 04/28/19at 20:00; Admin Dose 10 MG; Start 04/28/19 at 11:00 Pantoprazole (Protonix Tab) 40 mg DAILY@06 PO Last administered on 04/30/19at 06:00; Admin Dose 40 MG; Start 04/29/19 at 06:00 Insulin Aspart (Novolog Insulin Pen) NOVOLOG *MILD* ALGORITHM WITH MEALS BEDTIME SC ; Start 04/29/19 at 08:00 Lisinopril (Zestril) 10 mg DAILY PO Last administered on 04/30/19at 09:54; Admin Dose 10 MG; Start 04/29/19 at 09:30 Hyoscyamine (Levsin (Sl)) 0.125 mg Q4H PRN SL ab cramping; Start 04/29/19 at 12:30 Loperamide HCl (Imodium Cap) 2 mg BID PRN PO DIARRHEA; Start 04/29/19 at 12:30 Miscellaneous Information (*Rx Drug Level Order Reminder*) TOBRAMYCIN TR ON @ 600 1600 ONCE XX ; Start 04/30/19 at 16:00; Stop 04/30/19 at 16:01 Miscellaneous Information (*Rx Drug Level Order Reminder*) TOBRAMYCIN PEAK ON @ 1,800 1800 ONCE XX ; Start 04/30/19 at 18:00; Stop 04/30/19 at 18:01 Dextrose/Sodium Chloride 1,000 ml @ 50 mls/hr Q20H IV Last administered on 04/30/19at 08:03; Admin Dose 50 MLS/HR; Start 04/30/19 at 08:00 Potassium Chloride 100 ml @ 50 mls/hr Q2H IVPB Last administered on 04/30/19at 12:17; Admin Dose 50 MLS/HR; Start 04/30/19 at 10:00; Stop 04/30/19 at 13:59 Metoclopramide HCl (Reglan) 5 mg Q6 IV ; Start 04/30/19 at 18:00 VTE Prophylaxis Risk score (from Ns)>0 risk: 2 SCD applied (from [facility]): Yes Lines/Catheters IV Catheter Type: Krishna in Place: No Assessment/Plan Hospital Course Subjective Patient states still having diarrhea and worsening nausea Objective Physical exam General: Patient is laying in bed and answers questions appropriately Mentation: Patient is alert and oriented 4, Head: Normocephalic atraumatic Eyes: EOMI, pupils reactive to light Neck: Supple, nontender, midline Respiratory: Clear to auscultation bilaterally Cardiovascular: regular rate, no obvious murmurs Gastrointestinal: non-tender to palpation, bowel sounds heard. Neurological: Moves all extremities spontaneously Skin: No new skin lesions Assessment and plan Nausea and vomiting, acute on chronic -Stable, patient states that this happened after she took the oral antibiotic at home, however upon further questioning this appears to be happening anytime she eats and has been going on for a long time. -We will try to have some stomach relief with Carafate and Protonix for now -GI consulted, patient had upper endoscopy and colonoscopy, showing gastritis but no significant issues, continue PPI, GI also added Levsin and today will also order scheduled Reglan -Patient wants another PEG tube however will need to discuss with GI if this is even a good idea, patient may be suffering some anxiety, may need psych consult as both GI and I feel she may be exaggerating some of her symptoms Urinary tract infection -Infectious disease on board, appears patient was discharged previously on nitrofurantoin -Continue abx for now Leukocytosis -Mild increase -Repeat blood cultures -Repeat UA Diarrhea -Pending stool studies, c dif neg -Infectious disease consulted -diarrhea is intermittent since admission, will monitor, once again unsure if this is secondary to antibiotic versus other pathology -Patient has no abdominal pain -Patient had colonoscopy, no acute issues, GI started loperamide Hypertension -Home meds as needed -We will add new medications as needed Diabetes mellitus -We will do insulin sliding scale Dyslipidemia -Continue home medications History of urinary tract infection -Patient has a history of multidrug-resistant UTIs Disposition -Patient still having some symptoms with food intake, GI recommendations appreciated LINDA BOYLE Apr 30, 2019 13:40
--- NOTE | 2019-04-30 15:03 | CONS ---
Assessment/Plan Assessment/Plan Hospital Course (Demo Recall) ID PROGRESS NOTE CURRENT ABX: DAY # => Tobramycin 24H INTERVAL SUMMARY * Alert, overweight elder, VSS, NAD, no fevers -- stable post EGD/[place] * Urine culture on April 17 grew Klebsiella pneumoniae and E. coli both susc eptible to cefotaxime and Ancef also tobramycin DIAGNOSTIC IMAGING * 04/27/19 CXR: PHYSICAL EXAMINATION: GENERAL: VSS, NAD HEENT: AT, NC, NECK: Supple, CHEST: Rise symmetrical HEART: Pulse RRR ABDOMEN: Benign EXTREMITIES: Warm, dry SKIN: No rash, no diaphoresis ID ASSESSMENT 64 yo F admit with: 1. Recurrent UTI 2. Morbid obesity 3. Diabetes 4. Hypertension 5. Nausea/vomiting EGD 04/28/2019 Moderate distal esophagitis. Moderate gastritis. Rule out internal infection. Biopsies obtained. Evidence of previous gastrostomy tube site well-healed. Otherwise normal EGD. 6. Diarrhea Colonoscopy 04/28/2019 3 mm sessile polyp in the ascending colon, ablated. Moderate diverticulosis of the colon. Moderate-sized internal and large external hemorrhoids. Otherwise normal colonoscopy -Stool studies -CDIFF- Negative -O&P- Negative -Stool COLIFORM, ELYSSA ALBICANS (-)MRSA Nares ABX ALLERGIES: KNDA INVASIVES: PIV CURRENT ABX: DAY # Tobramycin ID RECOMMENDATIONS/PLAN: 1. Continue ABX last day SUN night Consultation Date/Type/Reason Admit Date/Time Apr 23, 2019 at 18:26 Initial Consult Date 04/26/19 Date/Time of Note DATE: 04/30/19 TIME: 15:02 Exam/Review of Systems Exam Vitals Vital Signs Date Temp Pulse Resp B/P (MAP) Pulse Ox O2 O2 Flow FiO2 Time Delivery Rate 04/30/19 99.4 76 11:16 04/30/19 18 136/70 98 08:02 (92) 04/28/19 Room Air 19:10 04/28/19 2.0 18:45 Intake and Output 04/29/19 04/29/19 04/30/19 1515:00 23:00 07:00 IntakeIntake Total 670 ml 412 ml 840 ml OutputOutput Total 400 ml 400 ml 600 ml BalanceBalance 270 ml 12 ml 240 ml Results Result Diagram: 04/30/19 0429 04/30/19 0429 Results 24hrs Laboratory Tests Test 04/29/19 17:14 04/29/19 20:22 04/30/19 04:29 04/30/19 07:41 Bedside Glucose 79 130 82 White Blood Count 14.9 H Red Blood Count 3.72 L Hemoglobin 9.4 L Hematocrit 31.4 L Mean Corpuscular 84.4 Volume Mean Corpuscular 25.3 L Hemoglobin Mean Corpuscular 29.9 L Hemoglobin Concent Red Cell 17.8 H Distribution Width Platelet Count 403 Mean Platelet Volume 9.8 Immature 4.500 H Granulocytes % Neutrophils % 69.3 Lymphocytes % 16.1 Monocytes % 7.0 Eosinophils % 2.6 Basophils % 0.5 Nucleated Red Blood 0.0 Cells % Immature 0.670 H Granulocytes # Neutrophils # 10.3 H Lymphocytes # 2.4 Monocytes # 1.1 H Eosinophils # 0.4 Basophils # 0.1 Nucleated Red Blood 0.0 Cells # Sodium Level 133 L Potassium Level 3.3 L Chloride Level 105 Carbon Dioxide Level 19 L Anion Gap 9 Blood Urea Nitrogen 6 L Creatinine 0.85 Est Glomerular > 60 Filtrat Rate mL/min Glucose Level 86 Calcium Level 8.8 Phosphorus Level 3.2 Magnesium Level 1.4 L Test 04/30/19 11:51 Bedside Glucose 103 Medications Medication Current Medications Atorvastatin Calcium (Lipitor) 40 mg QHS PO Last administered on 04/29/19at 20:25; Admin Dose 40 MG; Start 04/23/19 at 21:00 Clonidine (Catapres) 0.1 mg TID PRN PO ELEVATED BLOOD PRESSURE Last administered on 04/28/19at 22:48; Admin Dose 0.1 MG; Start 04/23/19 at 20:00 Escitalopram Oxalate (Lexapro) 10 mg DAILY PO Last administered on 04/30/19at 09:54; Admin Dose 10 MG; Start 04/24/19 at 09:00 IV Flush (NS 3 ml) 3 ml PER PROTOCOL IV ; Start 04/23/19 at 20:00 Ondansetron HCl (Zofran Inj) 4 mg Q6H PRN IV NAUSEA/VOMITING Last administered on 04/30/19at 06:07; Admin Dose 4 MG; Start 04/23/19 at 20:00 Acetaminophen (Tylenol Tab) 650 mg Q6H PRN PO .PAIN 1-3 OR TEMP Last administered on 04/29/19at 08:16; Admin Dose 650 MG; Start 04/23/19 at 20:00 Morphine Sulfate (morphine) 2 mg Q4H PRN IV .SEVERE PAIN 7-10 Last administered on 04/25/19at 12:27; Admin Dose 2 MG; Start 04/23/19 at 20:00 Docusate Sodium (Colace) 100 mg Q12H PRN PO .CONSTIPATION; Start 04/23/19 at 20:00 Bisacodyl (Dulcolax) 5 mg DAILY PRN PO .CONSTIPATION; Start 04/23/19 at 20:00 Heparin Sodium (Porcine) (Heparin (5000 Units/1ml)) 5,000 unit Q8 SC Last administered on 04/30/19at 14:42; Admin Dose 5,000 UNIT; Start 04/23/19 at 22:00 Lactobacillus Acidophilus (Florajen3 Capsule) 1 each BID PO Last administered on 04/30/19at 09:54; Admin Dose 1 EACH; Start 04/23/19 at 21:00 Miscellaneous Information 1 ea NOTE XX ; Start 04/23/19 at 20:30 Glucose (Glutose) 15 gm Q15M PRN PO DECREASED GLUCOSE; Start 04/23/19 at 20:30 Glucose (Glutose) 22.5 gm Q15M PRN PO DECREASED GLUCOSE; Start 04/23/19 at 20:30 Dextrose (D50w Syringe) 25 ml Q15M PRN IV DECREASED GLUCOSE; Start 04/23/19 at 20:30 Dextrose (D50w Syringe) 50 ml Q15M PRN IV DECREASED GLUCOSE; Start 04/23/19 at 20:30 Glucagon (Glucagen) 1 mg Q15M PRN IM DECREASED GLUCOSE; Start 04/23/19 at 20:30 Glucose (Glutose) 15 gm Q15M PRN BUCCAL DECREASED GLUCOSE; Start 04/23/19 at 20:30 [facility] This patient munguia... PRN PRN XX WOUND CARE; Start 04/24/19 at 05:00 Tobramycin (Tobramycin Iv Per Pharmacy) TOBRAMYCIN PER PHARMACY NOTE XX ; Start 04/24/19 at 16:00 Tobramycin 80 mg/ Sodium Chloride 52 ml @ 104 mls/hr Q24H IVPB Last administered on 04/29/19at 17:45; Admin Dose 104 MLS/HR; Start 04/24/19 at 17:00 Nystatin (Nystatin Powder) 1 applic BID TOP Last administered on 04/30/19at 09:20; Admin Dose 1 APPLIC; Start 04/24/19 at 21:00 Amlodipine Besylate (Norvasc) 10 mg DAILY PO Last administered on 04/30/19at 09:54; Admin Dose 10 MG; Start 04/29/19 at 09:00 Hydralazine HCl (Apresoline) 10 mg Q4H PRN IV sbp >160 Last administered on 04/28/19at 20:00; Admin Dose 10 MG; Start 04/28/19 at 11:00 Pantoprazole (Protonix Tab) 40 mg DAILY@06 PO Last administered on 04/30/19at 06:00; Admin Dose 40 MG; Start 04/29/19 at 06:00 Insulin Aspart (Novolog Insulin Pen) NOVOLOG *MILD* ALGORITHM WITH MEALS BEDTIME SC ; Start 04/29/19 at 08:00 Lisinopril (Zestril) 10 mg DAILY PO Last administered on 04/30/19at 09:54; Admin Dose 10 MG; Start 04/29/19 at 09:30 Hyoscyamine (Levsin (Sl)) 0.125 mg Q4H PRN SL ab cramping; Start 04/29/19 at 12:30 Loperamide HCl (Imodium Cap) 2 mg BID PRN PO DIARRHEA; Start 04/29/19 at 12:30 Miscellaneous Information (*Rx Drug Level Order Reminder*) TOBRAMYCIN TR ON @ 600 1600 ONCE XX ; Start 04/30/19 at 16:00; Stop 04/30/19 at 16:01 Miscellaneous Information (*Rx Drug Level Order Reminder*) TOBRAMYCIN PEAK ON @ 1,800 1800 ONCE XX ; Start 04/30/19 at 18:00; Stop 04/30/19 at 18:01 Dextrose/Sodium Chloride 1,000 ml @ 50 mls/hr Q20H IV Last administered on 04/30/19at 08:03; Admin Dose 50 MLS/HR; Start 04/30/19 at 08:00 Metoclopramide HCl (Reglan) 5 mg Q6 IV ; Start 04/30/19 at 18:00 EDDI SCHWARTZ NP Apr 30, 2019 15:03
[2019-04-30] MEDS: TOBRAMYCIN 80 MG in SOD CHLORIDE 0.9% 50 ML IVPB SCH (17:36)
[2019-04-30] MEDS: METOCLOPRAMIDE 10 MG INJ IV SCH (17:36)
[2019-04-30] MEDS: ACETAMINOPHEN 325 MG TAB PO PRN (20:47)
[2019-04-30] MEDS: ATORVASTATIN 40 MG TAB PO SCH (20:48)
[2019-04-30] MEDS: hydrALAzine 20 MG INJ IV PRN (20:52)
[2019-05-01] MEDS: METOCLOPRAMIDE 10 MG INJ IV SCH ×4 (00:44→18:09)
[2019-05-01 02:00] VITALS: BP 142/66; PULSE 83; RESP 20
[2019-05-01] MEDS: DEXTROSE 5%-0.45% NACL 1,000 ML IV SCH (05:46)
[2019-05-01] MEDS: PANTOPRAZOLE (EC) 40 MG TAB PO SCH (05:47)
[2019-05-01] MEDS: HEPARIN 5,000 UNIT/1 ML VIAL SC SCH ×3 (05:48→22:11)
[2019-05-01 07:47] VITALS: BP 137/63; PULSE 81; RESP 17
[2019-05-01] MEDS: INSULIN ASPART [NOVOLOG] 3 ML PEN SC SCH ×4 (08:00→20:56)
[2019-05-01] MEDS: ONDANSETRON 4 MG INJ IV PRN (08:56)
[2019-05-01] MEDS: L ACIDOPHIL/B LACTIS/B LONGUM CAPSULE PO SCH ×2 (09:11→20:55)
[2019-05-01] MEDS: AMLODIPINE 10 MG TAB PO SCH (09:11)
[2019-05-01] MEDS: ESCITALOPRAM 10 MG TAB PO SCH (09:12)
[2019-05-01] MEDS: LISINOPRIL 10 MG TAB PO SCH (09:12)
[2019-05-01] MEDS: NYSTATIN 30 GM POWDER BTL TOP SCH ×2 (09:16→20:56)
[2019-05-01] MEDS: ACETAMINOPHEN 325 MG TAB PO PRN (09:25)
--- NOTE | 2019-05-01 15:14 | CONS ---
Assessment/Plan Assessment/Plan Hospital Course (Demo Recall) Awake, looks comfortable, + low grade temps Urine culture on April 17 grew Klebsiella pneumoniae and E. coli both susceptible to cefotaxime and Ancef also tobramycin Antimicrobials: Tobramycin Physical examination: Obese well-developed elderly woman who is awake in no distress. Head atraumatic normocephalic sclera nonicteric vehicle mucosa dry neck is obese chest rise symmetrical breath sounds diminished bases heart S1-S2 abdomen soft bowel sounds present extremities without cyanosis Assessment: 1. Recurrent UTI 2. Morbid obesity 3. Diabetes 4. Hypertension 5. Diarrhea, C. difficile negative Plan: Stable, GI rec-s noted, dc abx, reculture prn Consultation Date/Type/Reason Admit Date/Time Apr 23, 2019 at 18:26 Initial Consult Date Type of Consult id Date/Time of Note DATE: 05/01/19 TIME: 15:13 Exam/Review of Systems Exam Vitals Vital Signs Date Temp Pulse Resp B/P (MAP) Pulse Ox O2 O2 Flow FiO2 Time Delivery Rate 05/01/19 98.7 08:40 05/01/19 81 17 137/63 96 Room Air 07:47 (87) 04/28/19 2.0 18:45 Intake and Output 04/30/19 04/30/19 05/01/19 1515:00 23:00 07:00 IntakeIntake Total 300 ml 152 ml 1800 ml OutputOutput Total 200 ml 300 ml 1200 ml BalanceBalance 100 ml -148 ml 600 ml Results Result Diagram: 05/01/19 0427 05/01/19 0427 Results 24hrs Laboratory Tests Test 04/30/19 17:34 04/30/19 20:28 05/01/19 04:27 05/01/19 07:55 Bedside Glucose 99 115 111 White Blood Count 15.0 H Red Blood Count 3.89 L Hemoglobin 9.9 L Hematocrit 32.2 L Mean Corpuscular 82.8 Volume Mean Corpuscular 25.4 L Hemoglobin Mean Corpuscular 30.7 L Hemoglobin Concent Red Cell 17.9 H Distribution Width Platelet Count 429 H Mean Platelet Volume 10.2 Immature 6.600 H Granulocytes % Neutrophils % Segmented 56 Neutrophils % (Manual) Lymphocytes % Lymphocytes % 19 (Manual) Reactive Lymphocytes 2 H % (Manual) Monocytes % Monocytes % (Manual) 11 Eosinophils % Eosinophils % 9 H (Manual) Basophils % Basophils % (Manual) 1 Metamyelocytes % 1 H (manual) Myelocytes % 1 H (Manual) Nucleated Red Blood 0.0 Cells % Immature 0.990 H Granulocytes # Neutrophils # Lymphocytes (Manual) 2.8 Lymphocytes # Reactive Lymphocytes 0.3 H # Monocytes # Monocytes # (Manual) 1.6 H Eosinophils # Basophils # Basophils # (Manual) 0.1 H Metamyelocytes # 0.1 H Myelocytes # 0.1 H Nucleated Red Blood Cells # Platelet Estimate NORMAL Polychromasia 2+ Poikilocytosis 1+ Anisocytosis 1+ Microcytosis 1+ Sodium Level 134 L Potassium Level 3.3 L Chloride Level 103 Carbon Dioxide Level 21 Anion Gap 10 Blood Urea Nitrogen 7 Creatinine 1.00 Est Glomerular 56 L Filtrat Rate mL/min Glucose Level 106 Calcium Level 9.3 Phosphorus Level 3.4 Magnesium Level 2.0 Test 05/01/19 12:01 Bedside Glucose 131 Medications Medication Current Medications Atorvastatin Calcium (Lipitor) 40 mg QHS PO Last administered on 04/30/19 20:48; Admin Dose 40 MG; Start 04/23/19 at 21:00 Clonidine (Catapres) 0.1 mg TID PRN PO ELEVATED BLOOD PRESSURE Last administered on 04/28/19 22:48; Admin Dose 0.1 MG; Start 04/23/19 at 20:00 Escitalopram Oxalate (Lexapro) 10 mg DAILY PO Last administered on 05/01/19 09:12; Admin Dose 10 MG; Start 04/24/19 at 09:00 IV Flush (NS 3 ml) 3 ml PER PROTOCOL IV ; Start 04/23/19 at 20:00 Ondansetron HCl (Zofran Inj) 4 mg Q6H PRN IV NAUSEA/VOMITING Last administered on 05/01/19 08:56; Admin Dose 4 MG; Start 04/23/19 at 20:00 Acetaminophen (Tylenol Tab) 650 mg Q6H PRN PO .PAIN 1-3 OR TEMP Last administered on 05/01/19 09:25; Admin Dose 650 MG; Start 04/23/19 at 20:00 Morphine Sulfate (morphine) 2 mg Q4H PRN IV .SEVERE PAIN 7-10 Last administered on 04/25/19 12:27; Admin Dose 2 MG; Start 04/23/19 at 20:00 Docusate Sodium (Colace) 100 mg Q12H PRN PO .CONSTIPATION; Start 04/23/19 at 20:00 Bisacodyl (Dulcolax) 5 mg DAILY PRN PO .CONSTIPATION; Start 04/23/19 at 20:00 Heparin Sodium (Porcine) (Heparin (5000 Units/1ml)) 5,000 unit Q8 SC Last administered on 05/01/19at 13:30; Admin Dose 5,000 UNIT; Start 04/23/19 at 22:00 Lactobacillus Acidophilus (Florajen3 Capsule) 1 each BID PO Last administered on 05/01/19at 09:11; Admin Dose 1 EACH; Start 04/23/19 at 21:00 Miscellaneous Information 1 ea NOTE XX ; Start 04/23/19 at 20:30 Glucose (Glutose) 15 gm Q15M PRN PO DECREASED GLUCOSE; Start 04/23/19 at 20:30 Glucose (Glutose) 22.5 gm Q15M PRN PO DECREASED GLUCOSE; Start 04/23/19 at 20:30 Dextrose (D50w Syringe) 25 ml Q15M PRN IV DECREASED GLUCOSE; Start 04/23/19 at 20:30 Dextrose (D50w Syringe) 50 ml Q15M PRN IV DECREASED GLUCOSE; Start 04/23/19 at 20:30 Glucagon (Glucagen) 1 mg Q15M PRN IM DECREASED GLUCOSE; Start 04/23/19 at 20:30 Glucose (Glutose) 15 gm Q15M PRN BUCCAL DECREASED GLUCOSE; Start 04/23/19 at 20:30 Miscellaneous Information (Pending [facility] Order For Wound Care) This patient munguia... PRN PRN XX WOUND CARE; Start 04/24/19 at 05:00 Nystatin (Nystatin Powder) 1 applic BID TOP Last administered on 05/01/19at 09:16; Admin Dose 1 APPLIC; Start 04/24/19 at 21:00 Amlodipine Besylate (Norvasc) 10 mg DAILY PO Last administered on 05/01/19at 09:11; Admin Dose 10 MG; Start 04/29/19 at 09:00 Hydralazine HCl (Apresoline) 10 mg Q4H PRN IV sbp >160 Last administered on 04/30/19at 20:52; Admin Dose 10 MG; Start 04/28/19 at 11:00 Pantoprazole (Protonix Tab) 40 mg DAILY@06 PO Last administered on 05/01/19at 05:47; Admin Dose 40 MG; Start 04/29/19 at 06:00 Insulin Aspart (Novolog Insulin Pen) NOVOLOG *MILD* ALGORITHM WITH MEALS B EDTIME SC ; Start 04/29/19 at 08:00 Lisinopril (Zestril) 10 mg DAILY PO Last administered on 05/01/19at 09:12; Admin Dose 10 MG; Start 04/29/19 at 09:30 Hyoscyamine (Levsin (Sl)) 0.125 mg Q4H PRN SL ab cramping; Start 04/29/19 at 12:30 Loperamide HCl (Imodium Cap) 2 mg BID PRN PO DIARRHEA; Start 04/29/19 at 12:30 Dextrose/Sodium Chloride 1,000 ml @ 50 mls/hr Q20H IV Last administered on 05/01/19at 05:46; Admin Dose 50 MLS/HR; Start 04/30/19 at 08:00 Metoclopramide HCl (Reglan) 5 mg Q6 IV Last administered on 05/01/19at 11:54; Admin Dose 5 MG; Start 04/30/19 at 18:00 ANA MARIA ZULETA NP May 01, 2019 15:14
--- NOTE | 2019-05-01 16:51 | PN ---
Date/Time of Note Date/Time of Note DATE: 05/01/19 TIME: 16:48 Assessment/Plan VTE Prophylaxis Risk score (from Ns)>0 risk: 6 SCD applied (from Nsg): Yes Pharmacological prophylaxis: other (scds) Lines/Catheters IV [facility] ([facility] Peripheral IV Urinary Cath still in place: No Assessment/Plan Hospital Course Summary Assessment and Plan: Assessment: Nausea/vomiting EGD 04/28/2019 Moderate distal esophagitis. Moderate gastritis. Rule out internal infection. Biopsies obtained. Evidence of previous gastrostomy tube site well-healed. Otherwise normal EGD. Diarrhea Colonoscopy 04/28/2019 3 mm sessile polyp in the ascending colon, ablated. Moderate diverticulosis of the colon. Moderate-sized internal and large external hemorrhoids. Otherwise normal colonoscopy -Stool studies -CDIFF- Negative -O&P- Negative -Stool COLIFORM, ELYSSA ALBICANS Normocytic anemia Abdominal cramping- improved UTI currently on antibiotics DM Dyslipidemia Pretension Plan: Review pathology Repeat colonoscopy in 5 years Levsin PRN Continue PPI Reglan 5 mg Iv q 6hrs Encourage getting OOB, deep breathing conisder gastric empyting study if n/v does not improve Patient seen in collaboration with Dr. Vasquez Subjective: Course reviewed with nursing staff Patient interviewed and examined All labs, imaging and other results reviewed Overall patient feels much better today, less nausea, able to tolerate small amount of food at a time. Increase in WBC noted, CXR- No radiographic evidence of acute cardiopulmonary disease. No significant interval change. Infecious disease following. Pt denies abd pain today. No BM in past few days, will add MiraLAX PRN Exam PHYSICAL EXAMINATION: GENERAL: Alert & oriented x 3, in no acute distress SKIN: No lesions, HEAD: Normocephalic, atraumatic, no tenderness. EYES: Pupils equal reactive to light and accommodation, full extraocular movements, sclera clear, non-icteric, no discharge. EARS/NOSE AND THROAT: Ears normal, nose normal, oropharynx normal, oral membranes well hydrated without lesions. NECK: Supple, no masses. CHEST: Inspection within normal limits. CARDIOVASCULAR: Heart: Regular rate and rhythm RESPIRATORY: Lungs clear to auscultation GASTROINTESTINAL AND LIVER: Abdomen: Soft, mild lower abd tenderness, non- distended, no hernias, no masses, no organomegaly, no ascites, no guarding, no rebound tenderness, normoactive bowel sounds. Rectal: Deferred. GENITOURINARY:Female genitalia within normal limits. EXTREMITIES: No cyanosis, clubbing or edema. Result Diagram: 05/01/19 0427 05/01/19 0427 Results 24hrs Laboratory Tests Test 04/30/19 17:34 04/30/19 20:28 05/01/19 04:27 05/01/19 07:55 Bedside Glucose 99 115 111 White Blood Count 15.0 H Red Blood Count 3.89 L Hemoglobin 9.9 L Hematocrit 32.2 L Mean Corpuscular 82.8 Volume Mean Corpuscular 25.4 L Hemoglobin Mean Corpuscular 30.7 L Hemoglobin Concent Red Cell 17.9 H Distribution Width Platelet Count 429 H Mean Platelet Volume 10.2 Immature 6.600 H Granulocytes % Neutrophils % Segmented 56 Neutrophils % (Manual) Lymphocytes % Lymphocytes % 19 (Manual) Reactive Lymphocytes 2 H % (Manual) Monocytes % Monocytes % (Manual) 11 Eosinophils % Eosinophils % 9 H (Manual) Basophils % Basophils % (Manual) 1 Metamyelocytes % 1 H (manual) Myelocytes % 1 H (Manual) Nucleated Red Blood 0.0 Cells % Immature 0.990 H Granulocytes # Neutrophils # Lymphocytes (Manual) 2.8 Lymphocytes # Reactive Lymphocytes 0.3 H # Monocytes # Monocytes # (Manual) 1.6 H Eosinophils # Basophils # Basophils # (Manual) 0.1 H Metamyelocytes # 0.1 H Myelocytes # 0.1 H Nucleated Red Blood Cells # Platelet Estimate NORMAL Polychromasia 2+ Poikilocytosis 1+ Anisocytosis 1+ Microcytosis 1+ Sodium Level 134 L Potassium Level 3.3 L Chloride Level 103 Carbon Dioxide Level 21 Anion Gap 10 Blood Urea Nitrogen 7 Creatinine 1.00 Est Glomerular 56 L Filtrat Rate mL/min Glucose Level 106 Calcium Level 9.3 Phosphorus Level 3.4 Magnesium Level 2.0 Test 05/01/19 12:01 Bedside Glucose 131 Exam/Review of Systems Exam Vitals Vital Signs Date Temp Pulse Resp B/P (MAP) Pulse Ox O2 O2 Flow FiO2 Time Delivery Rate 05/01/19 98.7 08:40 05/01/19 81 17 137/63 96 Room Air 07:47 (87) 04/28/19 2.0 18:45 Intake and Output 04/30/19 04/30/1919 1515:00 23:00 07:00 IntakeIntake Total 300 ml 152 ml 1800 ml OutputOutput Total 200 ml 300 ml 1200 ml BalanceBalance 100 ml -148 ml 600 ml Results Results 24hrs Laboratory Tests Test 04/30/19 17:34 04/30/19 20:28 05/01/19 04:27 05/01/19 07:55 Bedside Glucose 99 115 111 White Blood Count 15.0 H Red Blood Count 3.89 L Hemoglobin 9.9 L Hematocrit 32.2 L Mean Corpuscular 82.8 Volume Mean Corpuscular 25.4 L Hemoglobin Mean Corpuscular 30.7 L Hemoglobin Concent Red Cell 17.9 H Distribution Width Platelet Count 429 H Mean Platelet Volume 10.2 Immature 6.600 H Granulocytes % Neutrophils % Segmented 56 Neutrophils % (Manual) Lymphocytes % Lymphocytes % 19 (Manual) Reactive Lymphocytes 2 H % (Manual) Monocytes % Monocytes % (Manual) 11 Eosinophils % Eosinophils % 9 H (Manual) Basophils % Basophils % (Manual) 1 Metamyelocytes % 1 H (manual) Myelocytes % 1 H (Manual) Nucleated Red Blood 0.0 Cells % Immature 0.990 H Granulocytes # Neutrophils # Lymphocytes (Manual) 2.8 Lymphocytes # Reactive Lymphocytes 0.3 H # Monocytes # Monocytes # (Manual) 1.6 H Eosinophils # Basophils # Basophils # (Manual) 0.1 H Metamyelocytes # 0.1 H Myelocytes # 0.1 H Nucleated Red Blood Cells # Platelet Estimate NORMAL Polychromasia 2+ Poikilocytosis 1+ Anisocytosis 1+ Microcytosis 1+ Sodium Level 134 L Potassium Level 3.3 L Chloride Level 103 Carbon Dioxide Level 21 Anion Gap 10 Blood Urea Nitrogen 7 Creatinine 1.00 Est Glomerular 56 L Filtrat Rate mL/min Glucose Level 106 Calcium Level 9.3 Phosphorus Level 3.4 Magnesium Level 2.0 Test 05/01/19 12:01 Bedside Glucose 131 Medications Medication Current Medications Atorvastatin Calcium (Lipitor) 40 mg QHS PO Last administered on 04/30/19at 20:48; Admin Dose 40 MG; Start 04/23/19 at 21:00 Clonidine (Catapres) 0.1 mg TID PRN PO ELEVATED BLOOD PRESSURE Last administered on 04/28/19at 22:48; Admin Dose 0.1 MG; Start 04/23/19 at 20:00 Escitalopram Oxalate (Lexapro) 10 mg DAILY PO Last administered on 05/01/19 09:12; Admin Dose 10 MG; Start 04/24/19 at 09:00 IV Flush (NS 3 ml) 3 ml PER PROTOCOL IV ; Start 04/23/19 at 20:00 Ondansetron HCl (Zofran Inj) 4 mg Q6H PRN IV NAUSEA/VOMITING Last administered on 05/01/19 08:56; Admin Dose 4 MG; Start 04/23/19 at 20:00 Acetaminophen (Tylenol Tab) 650 mg Q6H PRN PO .PAIN 1-3 OR TEMP Last administered on 05/01/19 09:25; Admin Dose 650 MG; Start 04/23/19 at 20:00 Morphine Sulfate (morphine) 2 mg Q4H PRN IV .SEVERE PAIN 7-10 Last administered on 04/25/19 12:27; Admin Dose 2 MG; Start 04/23/19 at 20:00 Docusate Sodium (Colace) 100 mg Q12H PRN PO .CONSTIPATION; Start 04/23/19 at 20:00 Bisacodyl (Dulcolax) 5 mg DAILY PRN PO .CONSTIPATION; Start 04/23/19 at 20:00 Heparin Sodium (Porcine) (Heparin (5000 Units/1ml)) 5,000 unit Q8 SC Last administered on 05/01/19 13:30; Admin Dose 5,000 UNIT; Start 04/23/19 at 22:00 Lactobacillus Acidophilus (Florajen3 Capsule) 1 each BID PO Last administered on 05/01/19 09:11; Admin Dose 1 EACH; Start 04/23/19 at 21:00 Miscellaneous Information 1 ea NOTE XX ; Start 04/23/19 at 20:30 Glucose (Glutose) 15 gm Q15M PRN PO DECREASED GLUCOSE; Start 04/23/19 at 20:30 Glucose (Glutose) 22.5 gm Q15M PRN PO DECREASED GLUCOSE; Start 04/23/19 at 20:30 Dextrose (D50w Syringe) 25 ml Q15M PRN IV DECREASED GLUCOSE; Start 04/23/19 at 20:30 Dextrose (D50w Syringe) 50 ml Q15M PRN IV DECREASED GLUCOSE; Start 04/23/19 at 20:30 Glucagon (Glucagen) 1 mg Q15M PRN IM DECREASED GLUCOSE; Start 04/23/19 at 20:30 Glucose (Glutose) 15 gm Q15M PRN BUCCAL DECREASED GLUCOSE; Start 04/23/19 at 20:30 [facility] This patient munguia... PRN PRN XX WOUND CARE; Start 04/24/19 at 05:00 Nystatin (Nystatin Powder) 1 applic BID TOP Last administered on 05/01/19 09:16; Admin Dose 1 APPLIC; Start 04/24/19 at 21:00 Amlodipine Besylate (Norvasc) 10 mg DAILY PO Last administered on 05/01/19 09:11; Admin Dose 10 MG; Start 04/29/19 at 09:00 Hydralazine HCl (Apresoline) 10 mg Q4H PRN IV sbp >160 Last administered on 04/30/19 20:52; Admin Dose 10 MG; Start 04/28/19 at 11:00 Pantoprazole (Protonix Tab) 40 mg DAILY@06 PO Last administered on 05/01/19 05 :47; Admin Dose 40 MG; Start 04/29/19 at 06:00 Insulin Aspart (Novolog Insulin Pen) NOVOLOG *MILD* ALGORITHM WITH MEALS BEDTIME SC ; Start 04/29/19 at 08:00 Lisinopril (Zestril) 10 mg DAILY PO Last administered on 05/01/19 09:12; Admin Dose 10 MG; Start 04/29/19 at 09:30 Hyoscyamine (Levsin (Sl)) 0.125 mg Q4H PRN SL ab cramping; Start 04/29/19 at 12:30 Loperamide HCl (Imodium Cap) 2 mg BID PRN PO DIARRHEA; Start 04/29/19 at 12:30 Dextrose/Sodium Chloride 1,000 ml @ 50 mls/hr Q20H IV Last administered on 05/01/19 05:46; Admin Dose 50 MLS/HR; Start 04/30/19 at 08:00 Metoclopramide HCl (Reglan) 5 mg Q6 IV Last administered on 05/01/19 11:54; Admin Dose 5 MG; Start 04/30/19 at 18:00 BALTA HENDERSON May 01, 2019 16:51
[2019-05-01] MEDS ORDERED: POLYETHYLENE GLYCOL 17 GM PACKET PO PRN (17:00)
--- NOTE | 2019-05-01 17:12 | PN ---
Date/Time of Note Date/Time of Note DATE: 05/01/19 TIME: 17:00 Assessment/Plan VTE Prophylaxis Risk score (from Ns)>0 risk: 6 SCD applied (from Ns): Yes Pharmacological prophylaxis: heparin Lines/Catheters IV Catheter Type (from Nrsg): Peripheral IV Urinary Cath still in place: No Assessment/Plan Assessment/Plan 1. Nausea and vomiting, acute on chronic - patient still with diminished appetite but states feeling slightly better - GI on board and appreciate consultation. Pt has EGD and colonoscopy without any significant issues. Continue PPI, Levsin, and Carafate - Encouraged PO intake - Discuss with patient better to take food in PO rather than have PEG placement 2. Urinary tract infection - ID on board and d/c antibiotics today. Will monitor off antibiotics - Continue abx for now 3. Diarrhea- resolved - no abdominal pain - stool studies noted 4. Hypertension - continue home medications - adjust as needed for better control 5. Diabetes mellitus - ISS and accuchecks 6. History of urinary tract infection - Patient has a history of multidrug-resistant UTIs 7. Disposition - Once tolerating PO intake, will d/c home with HHPT Result Diagram: 05/01/19 0427 05/01/19 0427 Results 24hrs Laboratory Tests Test 04/30/19 17:34 04/30/19 20:28 05/01/19 04:27 05/01/19 07:55 Bedside Glucose 99 115 111 White Blood Count 15.0 H Red Blood Count 3.89 L Hemoglobin 9.9 L Hematocrit 32.2 L Mean Corpuscular 82.8 Volume Mean Corpuscular 25.4 L Hemoglobin Mean Corpuscular 30.7 L Hemoglobin Concent Red Cell 17.9 H Distribution Width Platelet Count 429 H Mean Platelet Volume 10.2 Immature 6.600 H Granulocytes % Neutrophils % Segmented 56 Neutrophils % (Manual) Lymphocytes % Lymphocytes % 19 (Manual) Reactive Lymphocytes 2 H % (Manual) Monocytes % Monocytes % (Manual) 11 Eosinophils % Eosinophils % 9 H (Manual) Basophils % Basophils % (Manual) 1 Metamyelocytes % 1 H (manual) Myelocytes % 1 H (Manual) Nucleated Red Blood 0.0 Cells % Immature 0.990 H Granulocytes # Neutrophils # Lymphocytes (Manual) 2.8 Lymphocytes # Reactive Lymphocytes 0.3 H # Monocytes # Monocytes # (Manual) 1.6 H Eosinophils # Basophils # Basophils # (Manual) 0.1 H Metamyelocytes # 0.1 H Myelocytes # 0.1 H Nucleated Red Blood Cells # Platelet Estimate NORMAL Polychromasia 2+ Poikilocytosis 1+ Anisocytosis 1+ Microcytosis 1+ Sodium Level 134 L Potassium Level 3.3 L Chloride Level 103 Carbon Dioxide Level 21 Anion Gap 10 Blood Urea Nitrogen 7 Creatinine 1.00 Est Glomerular 56 L Filtrat Rate mL/min Glucose Level 106 Calcium Level 9.3 Phosphorus Level 3.4 Magnesium Level 2.0 Test 05/01/19 12:01 05/01/19 16:51 Bedside Glucose 131 105 Subjective 24 Hr Interval Summary Free Text/Dictation Patient states shes feeling better but still complaining of loss of appetite and nausea. No acute overnight events. Exam/Review of Systems Exam Vitals Vital Signs Date Temp Pulse Resp B/P (MAP) Pulse Ox O2 O2 Flow FiO2 Time Delivery Rate 05/01/19 98.7 08:40 05/01/19 81 17 137/63 96 Room Air 07:47 (87) 04/28/19 2.0 18:45 Intake and Output 04/30/19 04/30/19 05/01/19 1515:00 23:00 07:00 IntakeIntake Total 300 ml 152 ml 1800 ml OutputOutput Total 200 ml 300 ml 1200 ml BalanceBalance 100 ml -148 ml 600 ml Exam General: Patient is laying in bed and answers questions appropriately. no acute distress Neck: Supple Respiratory: Clear to auscultation bilaterally. no wheezing or rhonchi Cardiovascular: S1, S2, regular rate and rhythm, no obvious murmurs Gastrointestinal: soft, non-tender to palpation, nondistended, bowel sounds heard. Neurological: Moves all extremities spontaneously Skin: No new skin lesions Results Results 24hrs Laboratory Tests Test 04/30/19 17:34 04/30/19 20:28 05/01/19 04:27 05/01/19 07:55 Bedside Glucose 99 115 111 White Blood Count 15.0 H Red Blood Count 3.89 L Hemoglobin 9.9 L Hematocrit 32.2 L Mean Corpuscular 82.8 Volume Mean Corpuscular 25.4 L Hemoglobin Mean Corpuscular 30.7 L Hemoglobin Concent Red Cell 17.9 H Distribution Width Platelet Count 429 H Mean Platelet Volume 10.2 Immature 6.600 H Granulocytes % Neutrophils % Segmented 56 Neutrophils % (Manual) Lymphocytes % Lymphocytes % 19 (Manual) Reactive Lymphocytes 2 H % (Manual) Monocytes % Monocytes % (Manual) 11 Eosinophils % Eosinophils % 9 H (Manual) Basophils % Basophils % (Manual) 1 Metamyelocytes % 1 H (manual) Myelocytes % 1 H (Manual) Nucleated Red Blood 0.0 Cells % Immature 0.990 H Granulocytes # Neutrophils # Lymphocytes (Manual) 2.8 Lymphocytes # Reactive Lymphocytes 0.3 H # Monocytes # Monocytes # (Manual) 1.6 H Eosinophils # Basophils # Basophils # (Manual) 0.1 H Metamyelocytes # 0.1 H Myelocytes # 0.1 H Nucleated Red Blood Cells # Platelet Estimate NORMAL Polychromasia 2+ Poikilocytosis 1+ Anisocytosis 1+ Microcytosis 1+ Sodium Level 134 L Potassium Level 3.3 L Chloride Level 103 Carbon Dioxide Level 21 Anion Gap 10 Blood Urea Nitrogen 7 Creatinine 1.00 Est Glomerular 56 L Filtrat Rate mL/min Glucose Level 106 Calcium Level 9.3 Phosphorus Level 3.4 Magnesium Level 2.0 Test 05/01/19 12:01 05/01/19 16:51 Bedside Glucose 131 105 Medications Medication Current Medications Atorvastatin Calcium (Lipitor) 40 mg QHS PO Last administered on 04/30/19 20:48; Admin Dose 40 MG; Start 04/23/19 at 21:00 Clonidine (Catapres) 0.1 mg TID PRN PO ELEVATED BLOOD PRESSURE Last administered on 04/28/19 22:48; Admin Dose 0.1 MG; Start 04/23/19 at 20:00 Escitalopram Oxalate (Lexapro) 10 mg DAILY PO Last administered on 05/01/19 09:12; Admin Dose 10 MG; Start 04/24/19 at 09:00 IV Flush (NS 3 ml) 3 ml PER PROTOCOL IV ; Start 04/23/19 at 20:00 Ondansetron HCl (Zofran Inj) 4 mg Q6H PRN IV NAUSEA/VOMITING Last administered on 05/01/19 08:56; Admin Dose 4 MG; Start 04/23/19 at 20:00 Acetaminophen (Tylenol Tab) 650 mg Q6H PRN PO .PAIN 1-3 OR TEMP Last administered on 05/01/19 09:25; Admin Dose 650 MG; Start 04/23/19 at 20:00 Morphine Sulfate (morphine) 2 mg Q4H PRN IV .SEVERE PAIN 7-10 Last administered on 04/25/19 12:27; Admin Dose 2 MG; Start 04/23/19 at 20:00 Docusate Sodium (Colace) 100 mg Q12H PRN PO .CONSTIPATION; Start 04/23/19 at 20:00 Bisacodyl (Dulcolax) 5 mg DAILY PRN PO .CONSTIPATION; Start 04/23/19 at 20:00 Heparin Sodium (Porcine) (Heparin (5000 Units/1ml)) 5,000 unit Q8 SC Last administered on 05/01/19 13:30; Admin Dose 5,000 UNIT; Start 04/23/19 at 22:00 Lactobacillus Acidophilus (Florajen3 Capsule) 1 each BID PO Last administered on 05/01/19 09:11; Admin Dose 1 EACH; Start 04/23/19 at 21:00 Miscellaneous Information 1 ea NOTE XX ; Start 04/23/19 at 20:30 Glucose (Glutose) 15 gm Q15M PRN PO DECREASED GLUCOSE; Start 04/23/19 at 20:30 Glucose (Glutose) 22.5 gm Q15M PRN PO DECREASED GLUCOSE; Start 04/23/19 at 20:30 Dextrose (D50w Syringe) 25 ml Q15M PRN IV DECREASED GLUCOSE; Start 04/23/19 at 20:30 Dextrose (D50w Syringe) 50 ml Q15M PRN IV DECREASED GLUCOSE; Start 04/23/19 at 20:30 Glucagon (Glucagen) 1 mg Q15M PRN IM DECREASED GLUCOSE; Start 04/23/19 at 20:30 Glucose (Glutose) 15 gm Q15M PRN BUCCAL DECREASED GLUCOSE; Start 04/23/19 at 20:30 Miscellaneous Information (Pending [facility] Order For Wound Care) This patient munguia... PRN PRN XX WOUND CARE; Start 04/24/19 at 05:00 Nystatin (Nystatin Powder) 1 applic BID TOP Last administered on 05/01/19 09 :16; Admin Dose 1 APPLIC; Start 04/24/19 at 21:00 Amlodipine Besylate (Norvasc) 10 mg DAILY PO Last administered on 05/01/19 09:11; Admin Dose 10 MG; Start 04/29/19 at 09:00 Hydralazine HCl (Apresoline) 10 mg Q4H PRN IV sbp >160 Last administered on 04/30/19at 20:52; Admin Dose 10 MG; Start 04/28/19 at 11:00 Pantoprazole (Protonix Tab) 40 mg DAILY@06 PO Last administered on 05/01/19at 05:47; Admin Dose 40 MG; Start 04/29/19 at 06:00 Insulin Aspart (Novolog Insulin Pen) NOVOLOG *MILD* ALGORITHM WITH MEALS BEDTIME SC ; Start 04/29/19 at 08:00 Lisinopril (Zestril) 10 mg DAILY PO Last administered on 05/01/19at 09:12; Admin Dose 10 MG; Start 04/29/19 at 09:30 Hyoscyamine (Levsin (Sl)) 0.125 mg Q4H PRN SL ab cramping; Start 04/29/19 at 12:30 Loperamide HCl (Imodium Cap) 2 mg BID PRN PO DIARRHEA; Start 04/29/19 at 12:30 Dextrose/Sodium Chloride 1,000 ml @ 50 mls/hr Q20H IV Last administered on 05/01/19at 05:46; Admin Dose 50 MLS/HR; Start 04/30/19 at 08:00 Metoclopramide HCl (Reglan) 5 mg Q6 IV Last administered on 05/01/19at 11:54; Admin Dose 5 MG; Start 04/30/19 at 18:00 Polyethylene Glycol (Miralax) 17 gm DAILY PRN PO constipation; Start 05/01/19 at 17:00; Status KAREN FELIZ MD May 01, 2019 17:12
--- NOTE | 2019-05-01 17:56 | PN ---
Date/Time of Note Date/Time of Note DATE: 05/01/19 TIME: 17:54 Assessment/Plan VTE Prophylaxis Risk score (from Ns)>0 risk: 6 SCD applied (from Ns): Yes Pharmacological prophylaxis: other (scds) Lines/Catheters [facility] Peripheral IV Urinary Cath still in place: No Assessment/Plan Hospital Course Summary Assessment and Plan: Assessment: Nausea/vomiting EGD 04/28/2019 Moderate distal esophagitis. Moderate gastritis. Rule out internal infection. Biopsies obtained. Evidence of previous gastrostomy tube site well-healed. Otherwise normal EGD. Diarrhea Colonoscopy 04/28/2019 3 mm sessile polyp in the ascending colon, ablated. Moderate diverticulosis of the colon. Moderate-sized internal and large external hemorrhoids. Otherwise normal colonoscopy -Stool studies -CDIFF- Negative -O&P- Negative -Stool COLIFORM, ELYSSA ALBICANS Normocytic anemia Abdominal cramping- improved UTI currently on antibiotics DM Dyslipidemia Pretension Plan: Review pathology- when available Repeat colonoscopy in 5 years Levsin PRN/Continue PPI Encourage getting OOB, deep breathing conisder gastric empyting study if n/v does not improve Patient seen in collaboration with Dr. Vasquez Subjective: Course reviewed with nursing staff Patient interviewed and examined All labs, imaging and other results reviewed Overall patient feels much better today, less nausea, able to tolerate small amount of food at a time. Increase in WBC noted, CXR- No radiographic evidence of acute cardiopulmonary disease. No significant interval change. Infecious disease following. Pt denies abd pain today. No BM in past few days, will add MiraLAX PRN Exam PHYSICAL EXAMINATION: GENERAL: Alert & oriented x 3, in no acute distress SKIN: No lesions, HEAD: Normocephalic, atraumatic, no tenderness. EYES: Pupils equal reactive to light and accommodation, full extraocular movements, sclera clear, non-icteric, no discharge. EARS/NOSE AND THROAT: Ears normal, nose normal, oropharynx normal, oral membranes well hydrated without lesions. NECK: Supple, no masses. CHEST: Inspection within normal limits. CARDIOVASCULAR: Heart: Regular rate and rhythm RESPIRATORY: Lungs clear to auscultation GASTROINTESTINAL AND LIVER: Abdomen: Soft, mild lower abd tenderness, non- distended, no hernias, no masses, no organomegaly, no ascites, no guarding, no rebound tenderness, normoactive bowel sounds. Rectal: Deferred. GENITOURINARY:Female genitalia within normal limits. EXTREMITIES: No cyanosis, clubbing or edema. Result Diagram: 05/01/1942605/01/19 0427 Results 24hrs Laboratory Tests Test 04/30/19 20:28 05/01/19 04:27 05/01/19 07:55 05/01/19 12:01 Bedside Glucose 115 111 131 White Blood Count 15.0 H Red Blood Count 3.89 L Hemoglobin 9.9 L Hematocrit 32.2 L Mean Corpuscular 82.8 Volume Mean Corpuscular 25.4 L Hemoglobin Mean Corpuscular 30.7 L Hemoglobin Concent Red Cell 17.9 H Distribution Width Platelet Count 429 H Mean Platelet Volume 10.2 Immature 6.600 H Granulocytes % Neutrophils % Segmented 56 Neutrophils % (Manual) Lymphocytes % Lymphocytes % 19 (Manual) Reactive Lymphocytes 2 H % (Manual) Monocytes % Monocytes % (Manual) 11 Eosinophils % Eosinophils % 9 H (Manual) Basophils % Basophils % (Manual) 1 Metamyelocytes % 1 H (manual) Myelocytes % 1 H (Manual) Nucleated Red Blood 0.0 Cells % Immature 0.990 H Granulocytes # Neutrophils # Lymphocytes (Manual) 2.8 Lymphocytes # Reactive Lymphocytes 0.3 H # Monocytes # Monocytes # (Manual) 1.6 H Eosinophils # Basophils # Basophils # (Manual) 0.1 H Metamyelocytes # 0.1 H Myelocytes # 0.1 H Nucleated Red Blood Cells # Platelet Estimate NORMAL Polychromasia 2+ Poikilocytosis 1+ Anisocytosis 1+ Microcytosis 1+ Sodium Level 134 L Potassium Level 3.3 L Chloride Level 103 Carbon Dioxide Level 21 Anion Gap 10 Blood Urea Nitrogen 7 Creatinine 1.00 Est Glomerular 56 L Filtrat Rate mL/min Glucose Level 106 Calcium Level 9.3 Phosphorus Level 3.4 Magnesium Level 2.0 Test 05/01/19 16:51 Bedside Glucose 105 Exam/Review of Systems Exam Vitals Vital Signs Date Temp Pulse Resp B/P (MAP) Pulse Ox O2 O2 Flow FiO2 Time Delivery Rate 05/01/19 98.7 08:40 05/01/19 81 17 137/63 96 Room Air 07:47 (87) 04/28/19 2.0 18:45 Intake and Output 04/30/19 04/30/19 05/01/19 1515:00 23:00 07:00 IntakeIntake Total 300 ml 152 ml 1800 ml OutputOutput Total 200 ml 300 ml 1200 ml BalanceBalance 100 ml -148 ml 600 ml Results Results 24hrs Laboratory Tests Test 04/30/19 20:28 05/01/19 04:27 05/01/19 07:55 05/01/19 12:01 Bedside Glucose 115 111 131 White Blood Count 15.0 H Red Blood Count 3.89 L Hemoglobin 9.9 L Hematocrit 32.2 L Mean Corpuscular 82.8 Volume Mean Corpuscular 25.4 L Hemoglobin Mean Corpuscular 30.7 L Hemoglobin Concent Red Cell 17.9 H Distribution Width Platelet Count 429 H Mean Platelet Volume 10.2 Immature 6.600 H Granulocytes % Neutrophils % Segmented 56 Neutrophils % (Manual) Lymphocytes % Lymphocytes % 19 (Manual) Reactive Lymphocytes 2 H % (Manual) Monocytes % Monocytes % (Manual) 11 Eosinophils % Eosinophils % 9 H (Manual) Basophils % Basophils % (Manual) 1 Metamyelocytes % 1 H (manual) Myelocytes % 1 H (Manual) Nucleated Red Blood 0.0 Cells % Immature 0.990 H Granulocytes # Neutrophils # Lymphocytes (Manual) 2.8 Lymphocytes # Reactive Lymphocytes 0.3 H # Monocytes # Monocytes # (Manual) 1.6 H Eosinophils # Basophils # Basophils # (Manual) 0.1 H Metamyelocytes # 0.1 H Myelocytes # 0.1 H Nucleated Red Blood Cells # Platelet Estimate NORMAL Polychromasia 2+ Poikilocytosis 1+ Anisocytosis 1+ Microcytosis 1+ Sodium Level 134 L Potassium Level 3.3 L Chloride Level 103 Carbon Dioxide Level 21 Anion Gap 10 Blood Urea Nitrogen 7 Creatinine 1.00 Est Glomerular 56 L Filtrat Rate mL/min Glucose Level 106 Calcium Level 9.3 Phosphorus Level 3.4 Magnesium Level 2.0 Test 05/01/19 16:51 Bedside Glucose 105 Medications Medication Current Medications Atorvastatin Calcium (Lipitor) 40 mg QHS PO Last administered on 04/30/19at 20:48; Admin Dose 40 MG; Start 04/23/19 at 21:00 Clonidine (Catapres) 0.1 mg TID PRN PO ELEVATED BLOOD PRESSURE Last administered on 04/28/19at 22:48; Admin Dose 0.1 MG; Start 04/23/19 at 20:00 Escitalopram Oxalate (Lexapro) 10 mg DAILY PO Last administered on 05/01/19 09:12; Admin Dose 10 MG; Start 04/24/19 at 09:00 IV Flush (NS 3 ml) 3 ml PER PROTOCOL IV ; Start 04/23/19 at 20:00 Ondansetron HCl (Zofran Inj) 4 mg Q6H PRN IV NAUSEA/VOMITING Last administered on 05/01/19 08:56; Admin Dose 4 MG; Start 04/23/19 at 20:00 Acetaminophen (Tylenol Tab) 650 mg Q6H PRN PO .PAIN 1-3 OR TEMP Last administered on 05/01/19 09:25; Admin Dose 650 MG; Start 04/23/19 at 20:00 Morphine Sulfate (morphine) 2 mg Q4H PRN IV .SEVERE PAIN 7-10 Last administered on 04/25/19 12:27; Admin Dose 2 MG; Start 04/23/19 at 20:00 Docusate Sodium (Colace) 100 mg Q12H PRN PO .CONSTIPATION; Start 04/23/19 at 20:00 Bisacodyl (Dulcolax) 5 mg DAILY PRN PO .CONSTIPATION; Start 04/23/19 at 20:00 Heparin Sodium (Porcine) (Heparin (5000 Units/1ml)) 5,000 unit Q8 SC Last administered on 05/01/19 13:30; Admin Dose 5,000 UNIT; Start 04/23/19 at 22:00 Lactobacillus Acidophilus (Florajen3 Capsule) 1 each BID PO Last administered on 05/01/19 09:11; Admin Dose 1 EACH; Start 04/23/19 at 21:00 Miscellaneous Information 1 ea NOTE XX ; Start 04/23/19 at 20:30 Glucose (Glutose) 15 gm Q15M PRN PO DECREASED GLUCOSE; Start 04/23/19 at 20:30 Glucose (Glutose) 22.5 gm Q15M PRN PO DECREASED GLUCOSE; Start 04/23/19 at 20:30 Dextrose (D50w Syringe) 25 ml Q15M PRN IV DECREASED GLUCOSE; Start 04/23/19 at 20:30 Dextrose (D50w Syringe) 50 ml Q15M PRN IV DECREASED GLUCOSE; Start 04/23/19 at 20:30 Glucagon (Glucagen) 1 mg Q15M PRN IM DECREASED GLUCOSE; Start 04/23/19 at 20:30 Glucose (Glutose) 15 gm Q15M PRN BUCCAL DECREASED GLUCOSE; Start 04/23/19 at 20:30 Miscellaneous Information (Pending [facility] Order For Wound Care) This patient munguia... PRN PRN XX WOUND CARE; Start 04/24/19 at 05:00 Nystatin (Nystatin Powder) 1 applic BID TOP Last administered on 05/01/19 09:16; Admin Dose 1 APPLIC; Start 04/24/19 at 21:00 Amlodipine Besylate (Norvasc) 10 mg DAILY PO Last administered on 05/01/19 09:11; Admin Dose 10 MG; Start 04/29/19 at 09:00 Hydralazine HCl (Apresoline) 10 mg Q4H PRN IV sbp >160 Last administered on 04/30/19at 20:52; Admin Dose 10 MG; Start 04/28/19 at 11:00 Pantoprazole (Protonix Tab) 40 mg DAILY@06 PO Last administered on 05/01/19at 05:47; Admin Dose 40 MG; Start 04/29/19 at 06:00 Insulin Aspart (Novolog Insulin Pen) NOVOLOG *MILD* ALGORITHM WITH MEALS BEDTIME SC ; Start 04/29/19 at 08:00 Lisinopril (Zestril) 10 mg DAILY PO Last administered on 05/01/19at 09:12; Admin Dose 10 MG; Start 04/29/19 at 09:30 Hyoscyamine (Levsin (Sl)) 0.125 mg Q4H PRN SL ab cramping; Start 04/29/19 at 12:30 Loperamide HCl (Imodium Cap) 2 mg BID PRN PO DIARRHEA; Start 04/29/19 at 12:30 Dextrose/Sodium Chloride 1,000 ml @ 50 mls/hr Q20H IV Last administered on 05/01/19at 05:46; Admin Dose 50 MLS/HR; Start 04/30/19 at 08:00 Metoclopramide HCl (Reglan) 5 mg Q6 IV Last administered on 05/01/19at 11:54; Admin Dose 5 MG; Start 04/30/19 at 18:00 Polyethylene Glycol (Miralax) 17 gm DAILY PRN PO constipation; Start 05/01/19 at 17:00 BALTA HENDERSON 24, 2019 17:56
[2019-05-01] MEDS ORDERED: METOCLOPRAMIDE 10 MG INJ IV PRN (18:00)
[2019-05-01 20:00] VITALS: BP 148/63; PULSE 76; RESP 18
[2019-05-01] MEDS: ATORVASTATIN 40 MG TAB PO SCH (20:56)
[2019-05-02] MEDS: METOCLOPRAMIDE 10 MG INJ IV SCH ×4 (00:16→18:57)
[2019-05-02] MEDS: DEXTROSE 5%-0.45% NACL 1,000 ML IV SCH (00:17)
[2019-05-02 02:00] VITALS: BP 128/61; PULSE 79; RESP 17
[2019-05-02] MEDS: PANTOPRAZOLE (EC) 40 MG TAB PO SCH (05:34)
[2019-05-02] MEDS: HEPARIN 5,000 UNIT/1 ML VIAL SC SCH ×3 (05:35→22:13)
[2019-05-02] MEDS: INSULIN ASPART [NOVOLOG] 3 ML PEN SC SCH ×4 (08:00→20:48)
[2019-05-02 08:30] VITALS: BP 147/70; PULSE 77; RESP 36
[2019-05-02] MEDS: ESCITALOPRAM 10 MG TAB PO SCH (08:48)
[2019-05-02] MEDS: LISINOPRIL 10 MG TAB PO SCH (08:49)
[2019-05-02] MEDS: L ACIDOPHIL/B LACTIS/B LONGUM CAPSULE PO SCH ×2 (08:49→20:44)
[2019-05-02] MEDS: AMLODIPINE 10 MG TAB PO SCH (08:49)
[2019-05-02] MEDS: NYSTATIN 30 GM POWDER BTL TOP SCH ×2 (09:24→22:12)
[2019-05-02] MEDS ORDERED: MAGNESIUM SULFATE 2 GM/50 ML 50 ML IVPB ONE (10:00)
[2019-05-02] MEDS: POTASSIUM CHLORIDE 100 ML IVPB SCH ×2 (11:24→13:46)
--- NOTE | 2019-05-02 11:51 | PN ---
Date/Time of Note Date/Time of Note DATE: 05/02/19 TIME: 11:45 Assessment/Plan VTE Prophylaxis Risk score (from Ns)>0 risk: 4 SCD applied (from Ns): Yes Pharmacological prophylaxis: other (scds) Lines/Catheters IV Catheter Type (from Rust): Peripheral IV Urinary Cath still in place: No Assessment/Plan Hospital Course Summary Assessment and Plan: Assessment: Nausea/vomiting EGD 04/28/2019 Moderate distal esophagitis. Moderate gastritis. Rule out internal infection. Biopsies obtained. Evidence of previous gastrostomy tube site well-healed. Otherwise normal EGD. Diarrhea- possibly 2/2 to antibiotics Colonoscopy 04/28/2019 3 mm sessile polyp in the ascending colon, ablated. Moderate diverticulosis of the colon. Moderate-sized internal and large external hemorrhoids. Otherwise normal colonoscopy -Stool studies COLIFORM, ELYSSA ALBICANS -CDIFF- Negative -O&P- Negative Normocytic anemia Abdominal cramping- improved UTI currently on antibiotics DM Dyslipidemia Pretension Plan: Review pathology- when available Repeat colonoscopy in 5 years Levsin PRN/Continue PPI Encourage getting OOB, deep breathing consider gastric emptying study if n/v does not improve Discussed importance of getting out bed, and sitting in chair during meals Start probiotics Patient seen in collaboration with Dr. Vasquez Subjective: Course reviewed with nursing staff Patient interviewed and examined All labs, imaging and other results reviewed Pt with x2-3 episodes of diarrhea - work-up thus far negative WBC trending up Pt continues to c/o n/v- reglan OTC- zofran PRN. Awaiting bx results of EGD/colonoscopy. Exam PHYSICAL EXAMINATION: GENERAL: Alert & oriented x 3, in no acute distress SKIN: No lesions, HEAD: Normocephalic, atraumatic, no tenderness. EYES: Pupils equal reactive to light and accommodation, no discharge. EARS/NOSE AND THROAT: Ears normal. NECK: Supple, no masses. CHEST: Inspection within normal limits. CARDIOVASCULAR: Heart: Regular rate and rhythm RESPIRATORY: Lungs clear to auscultation GASTROINTESTINAL AND LIVER: Abdomen: Soft, mild lower abd tenderness- improved, non-distended, no hernias, no masses, normoactive bowel sounds. Rectal: Deferred. GENITOURINARY:Female genitalia within normal limits. EXTREMITIES: No cyanosis, clubbing or edema. Result Diagram: 05/02/19 0507 05/02/19 0507 Results 24hrs Laboratory Tests Test 05/01/19 12:01 05/01/19 16:51 05/01/19 20:54 05/02/19 05:07 Bedside Glucose 131 105 121 White Blood Count 15.3 H Red Blood Count 3.47 L Hemoglobin 8.9 L Hematocrit 29.2 L Mean Corpuscular 84.1 Volume Mean Corpuscular 25.6 L Hemoglobin Mean Corpuscular 30.5 L Hemoglobin Concent Red Cell 17.7 H Distribution Width Platelet Count 387 Mean Platelet Volume 10.1 Immature 7.000 H Granulocytes % Neutrophils % Segmented 55 Neutrophils % (Manual) Band Neutrophils % 7 H (Manual) Lymphocytes % Lymphocytes % 17 (Manual) Monocytes % Monocytes % (Manual) 12 H Eosinophils % Eosinophils % 6 (Manual) Basophils % Basophils % (Manual) 1 Metamyelocytes % 1 H (manual) Promyelocytes % 1 H (Manual) Nucleated Red Blood 0.0 Cells % Immature 1.070 H Granulocytes # Neutrophils # Neutrophils # 8.6 H (Manual) Band Neutrophils # 1.0 H Lymphocytes (Manual) 2.6 Lymphocytes # Monocytes # Monocytes # (Manual) 1.8 H Eosinophils # Basophils # Basophils # (Manual) 0.1 H Metamyelocytes # 0.1 H Promyelocytes # 0.1 H Nucleated Red Blood Cells # Platelet Estimate NORMAL Giant Platelets 1 H Polychromasia 1+ Hypochromasia 1+ Anisocytosis 1+ Microcytosis 1+ Sodium Level 130 L Potassium Level 3.3 L Chloride Level 103 Carbon Dioxide Level 19 L Anion Gap 8 Blood Urea Nitrogen 8 Creatinine 0.97 Glucose Level 98 Calcium Level 8.9 Phosphorus Level 3.3 Magnesium Level 1.7 Albumin 2.5 L Test 05/02/19 07:59 05/02/19 11:42 Bedside Glucose 105 110 Exam/Review of Systems Exam Vitals Vital Signs Date Temp Pulse Resp B/P (MAP) Pulse Ox O2 O2 Flow FiO2 Time Delivery Rate 05/02/19 98.4 77 36 147/70 95 08:30 (95) 05/01/19 Room Air 07:47 04/28/19 2.0 18:45 Intake and Output 05/01/19 05/01/19 05/02/19 1515:00 23:00 07:00 IntakeIntake Total 780 ml 650 ml BalanceBalance 780 ml 650 ml Results Results 24hrs Laboratory Tests Test 05/01/19 12:01 05/01/19 16:51 05/01/19 20:54 05/02/19 05:07 Bedside Glucose 131 105 121 White Blood Count 15.3 H Red Blood Count 3.47 L Hemoglobin 8.9 L Hematocrit 29.2 L Mean Corpuscular 84.1 Volume Mean Corpuscular 25.6 L Hemoglobin Mean Corpuscular 30.5 L Hemoglobin Concent Red Cell 17.7 H Distribution Width Platelet Count 387 Mean Platelet Volume 10.1 Immature 7.000 H Granulocytes % Neutrophils % Segmented 55 Neutrophils % (Manual) Band Neutrophils % 7 H (Manual) Lymphocytes % Lymphocytes % 17 (Manual) Monocytes % Monocytes % (Manual) 12 H Eosinophils % Eosinophils % 6 (Manual) Basophils % Basophils % (Manual) 1 Metamyelocytes % 1 H (manual) Promyelocytes % 1 H (Manual) Nucleated Red Blood 0.0 Cells % Immature 1.070 H Granulocytes # Neutrophils # Neutrophils # 8.6 H (Manual) Band Neutrophils # 1.0 H Lymphocytes (Manual) 2.6 Lymphocytes # Monocytes # Monocytes # (Manual) 1.8 H Eosinophils # Basophils # Basophils # (Manual) 0.1 H Metamyelocytes # 0.1 H Promyelocytes # 0.1 H Nucleated Red Blood Cells # Platelet Estimate NORMAL Giant Platelets 1 H Polychromasia 1+ Hypochromasia 1+ Anisocytosis 1+ Microcytosis 1+ Sodium Level 130 L Potassium Level 3.3 L Chloride Level 103 Carbon Dioxide Level 19 L Anion Gap 8 Blood Urea Nitrogen 8 Creatinine 0.97 Glucose Level 98 Calcium Level 8.9 Phosphorus Level 3.3 Magnesium Level 1.7 Albumin 2.5 L Test 05/02/19 07:59 05/02/19 11:42 Bedside Glucose 105 110 Medications Medication Current Medications Atorvastatin Calcium (Lipitor) 40 mg QHS PO Last administered on 05/01/19at 20:56; Admin Dose 40 MG; Start 04/23/19 at 21:00 Clonidine (Catapres) 0.1 mg TID PRN PO ELEVATED BLOOD PRESSURE Last administered on 04/28/19at 22:48; Admin Dose 0.1 MG; Start 04/23/19 at 20:00 Escitalopram Oxalate (Lexapro) 10 mg DAILY PO Last administered on 05/02/19at 08:48; Admin Dose 10 MG; Start 04/24/19 at 09:00 IV Flush (NS 3 ml) 3 ml PER PROTOCOL IV ; Start 04/23/19 at 20:00 Ondansetron HCl (Zofran Inj) 4 mg Q6H PRN IV NAUSEA/VOMITING Last administered on 05/01/19at 08:56; Admin Dose 4 MG; Start 04/23/19 at 20:00 Acetaminophen (Tylenol Tab) 650 mg Q6H PRN PO .PAIN 1-3 OR TEMP Last administered on 05/01/19at 09:25; Admin Dose 650 MG; Start 04/23/19 at 20:00 Morphine Sulfate (morphine) 2 mg Q4H PRN IV .SEVERE PAIN 7-10 Last administered on 04/25/19at 12:27; Admin Dose 2 MG; Start 04/23/19 at 20:00 Docusate Sodium (Colace) 100 mg Q12H PRN PO .CONSTIPATION; Start 04/23/19 at 20:00 Bisacodyl (Dulcolax) 5 mg DAILY PRN PO .CONSTIPATION; Start 04/23/19 at 20:00 Heparin Sodium (Porcine) (Heparin (5000 Units/1ml)) 5,000 unit Q8 SC Last administered on 05/02/19at 05:35; Admin Dose 5,000 UNIT; Start 04/23/19 at 22:00 Lactobacillus Acidophilus (Florajen3 Capsule) 1 each BID PO Last administered on 05/02/19at 08:49; Admin Dose 1 EACH; Start 04/23/19 at 21:00 Miscellaneous Information 1 ea NOTE XX ; Start 04/23/19 at 20:30 Glucose (Glutose) 15 gm Q15M PRN PO DECREASED GLUCOSE; Start 04/23/19 at 20:30 Glucose (Glutose) 22.5 gm Q15M PRN PO DECREASED GLUCOSE; Start 04/23/19 at 20:30 Dextrose (D50w Syringe) 25 ml Q15M PRN IV DECREASED GLUCOSE; Start 04/23/19 at 20:30 Dextrose (D50w Syringe) 50 ml Q15M PRN IV DECREASED GLUCOSE; Start 04/23/19 at 20:30 Glucagon (Glucagen) 1 mg Q15M PRN IM DECREASED GLUCOSE; Start 04/23/19 at 20:30 Glucose (Glutose) 15 gm Q15M PRN BUCCAL DECREASED GLUCOSE; Start 04/23/19 at 20:30 Miscellaneous Information (Pending [facility] Order For Wound Care) This patient munguia... PRN PRN XX WOUND CARE; Start 04/24/19 at 05:00 Nystatin (Nystatin Powder) 1 applic BID TOP Last administered on 05/02/19at 09:24; Admin Dose 1 APPLIC; Start 04/24/19 at 21:00 Amlodipine Besylate (Norvasc) 10 mg DAILY PO Last administered on 05/02/19 08:49; Admin Dose 10 MG; Start 04/29/19 at 09:00 Hydralazine HCl (Apresoline) 10 mg Q4H PRN IV sbp >160 Last administered on 04/30/19at 20:52; Admin Dose 10 MG; Start 04/28/19 at 11:00 Pantoprazole (Protonix Tab) 40 mg DAILY@06 PO Last administered on 05/02/19 05:34; Admin Dose 40 MG; Start 04/29/19 at 06:00 Insulin Aspart (Novolog Insulin Pen) NOVOLOG *MILD* ALGORITHM WITH MEALS BEDTIME SC ; Start 04/29/19 at 08:00 Lisinopril (Zestril) 10 mg DAILY PO Last administered on 05/02/19 08:49; Admin Dose 10 MG; Start 04/29/19 at 09:30 Hyoscyamine (Levsin (Sl)) 0.125 mg Q4H PRN SL ab cramping; Start 04/29/19 at 12:30 Loperamide HCl (Imodium Cap) 2 mg BID PRN PO DIARRHEA; Start 04/29/19 at 12:30 Polyethylene Glycol (Miralax) 17 gm DAILY PRN PO constipation; Start 05/01/19 at 17:00 Metoclopramide HCl (Reglan) 5 mg Q6 IV Last administered on 05/02/19at 11:34; Admin Dose 5 MG; Start 05/01/19 at 18:00 Potassium Chloride 100 ml @ 50 mls/hr Q2H IVPB Last administered on 05/02/19at 11:24; Admin Dose 50 MLS/HR; Start 05/02/19 at 10:00; Stop 05/02/19 at 13:59 Magnesium Sulfate 50 ml @ 25 mls/hr ONCE ONCE IVPB ; Start 05/02/19 at 10:00; Stop 05/02/19 at 11:59 BALTA HENDERSON May 02, 2019 11:51
[2019-05-02 15:15] VITALS: BP 143/64; PULSE 81; RESP 24
--- NOTE | 2019-05-02 15:46 | PN ---
Date/Time of Note Date/Time of Note DATE: 05/02/19 TIME: 15:42 Assessment/Plan VTE Prophylaxis Risk score (from Ns)>0 risk: 4 SCD applied (from Ns): Yes Pharmacological prophylaxis: heparin Lines/Catheters IV Catheter Type (from Nrsg): Peripheral IV Urinary Cath still in place: No Assessment/Plan Assessment/Plan 1. Nausea and vomiting, acute on chronic - still with nausea but no vomiting - if persists, GI recommending gastric emptying study - GI on board and appreciate consultation. Pt has EGD and colonoscopy without any significant issues. Continue PPI, Levsin, and Carafate - Encouraged PO intake and ambulation 2. Urinary tract infection - ID on board and Will monitor off antibiotics 3. Diarrhea - will start on probiotics - stool studies noted 4. Hypertension - continue home medications - adjust as needed for better control 5. Diabetes mellitus - ISS and accuchecks 6. History of urinary tract infection - Patient has a history of multidrug-resistant UTIs 7. Disposition - Still with diarrhea and will start on probiotics. Once stable and tolerating more PO intake, will d/c home with HHPT Result Diagram: 05/02/19 0507 05/02/19 0507 Results 24hrs Laboratory Tests Test 05/01/19 16:51 05/01/19 20:54 05/02/19 05:07 05/02/19 07:59 Bedside Glucose 105 121 105 White Blood Count 15.3 H Red Blood Count 3.47 L Hemoglobin 8.9 L Hematocrit 29.2 L Mean Corpuscular 84.1 Volume Mean Corpuscular 25.6 L Hemoglobin Mean Corpuscular 30.5 L Hemoglobin Concent Red Cell 17.7 H Distribution Width Platelet Count 387 Mean Platelet Volume 10.1 Immature 7.000 H Granulocytes % Neutrophils % Segmented 55 Neutrophils % (Manual) Band Neutrophils % 7 H (Manual) Lymphocytes % Lymphocytes % 17 (Manual) Monocytes % Monocytes % (Manual) 12 H Eosinophils % Eosinophils % 6 (Manual) Basophils % Basophils % (Manual) 1 Metamyelocytes % 1 H (manual) Promyelocytes % 1 H (Manual) Nucleated Red Blood 0.0 Cells % Immature 1.070 H Granulocytes # Neutrophils # Neutrophils # 8.6 H (Manual) Band Neutrophils # 1.0 H Lymphocytes (Manual) 2.6 Lymphocytes # Monocytes # Monocytes # (Manual) 1.8 H Eosinophils # Basophils # Basophils # (Manual) 0.1 H Metamyelocytes # 0.1 H Promyelocytes # 0.1 H Nucleated Red Blood Cells # Platelet Estimate NORMAL Giant Platelets 1 H Polychromasia 1+ Hypochromasia 1+ Anisocytosis 1+ Microcytosis 1+ Sodium Level 130 L Potassium Level 3.3 L Chloride Level 103 Carbon Dioxide Level 19 L Anion Gap 8 Blood Urea Nitrogen 8 Creatinine 0.97 Glucose Level 98 Hemoglobin A1c 5.6 Calcium Level 8.9 Phosphorus Level 3.3 Magnesium Level 1.7 Albumin 2.5 L Test 05/02/19 11:42 Bedside Glucose 110 Subjective 24 Hr Interval Summary Free Text/Dictation Patient with diarrhea once again after 3 days of no BM. Still with nausea as well and diminished po intake. Exam/Review of Systems Exam Vitals Vital Signs Date Temp Pulse Resp B/P (MAP) Pulse Ox O2 O2 Flow FiO2 Time Delivery Rate 05/02/19 99.3 81 24 143/64 94 15:15 (90) 05/01/19 Room Air 07:47 04/28/19 2.0 18:45 Intake and Output 05/01/19 05/01/19 05/02/19 1515:00 23:00 07:00 IntakeIntake Total 780 ml 650 ml BalanceBalance 780 ml 650 ml Exam General: Distress secondary to discomfort Neck: Supple Respiratory: Clear to auscultation bilaterally. no wheezing or rhonchi Cardiovascular: S1, S2, regular rate and rhythm, no obvious murmurs Gastrointestinal: soft, non-tender to palpation, nondistended, bowel sounds heard. Neurological: Moves all extremities spontaneously Skin: No new skin lesions Results Results 24hrs Laboratory Tests Test 05/01/19 16:51 05/01/19 20:54 05/02/19 05:07 05/02/19 07:59 Bedside Glucose 105 121 105 White Blood Count 15.3 H Red Blood Count 3.47 L Hemoglobin 8.9 L Hematocrit 29.2 L Mean Corpuscular 84.1 Volume Mean Corpuscular 25.6 L Hemoglobin Mean Corpuscular 30.5 L Hemoglobin Concent Red Cell 17.7 H Distribution Width Platelet Count 387 Mean Platelet Volume 10.1 Immature 7.000 H Granulocytes % Neutrophils % Segmented 55 Neutrophils % (Manual) Band Neutrophils % 7 H (Manual) Lymphocytes % Lymphocytes % 17 (Manual) Monocytes % Monocytes % (Manual) 12 H Eosinophils % Eosinophils % 6 (Manual) Basophils % Basophils % (Manual) 1 Metamyelocytes % 1 H (manual) Promyelocytes % 1 H (Manual) Nucleated Red Blood 0.0 Cells % Immature 1.070 H Granulocytes # Neutrophils # Neutrophils # 8.6 H (Manual) Band Neutrophils # 1.0 H Lymphocytes (Manual) 2.6 Lymphocytes # Monocytes # Monocytes # (Manual) 1.8 H Eosinophils # Basophils # Basophils # (Manual) 0.1 H Metamyelocytes # 0.1 H Promyelocytes # 0.1 H Nucleated Red Blood Cells # Platelet Estimate NORMAL Giant Platelets 1 H Polychromasia 1+ Hypochromasia 1+ Anisocytosis 1+ Microcytosis 1+ Sodium Level 130 L Potassium Level 3.3 L Chloride Level 103 Carbon Dioxide Level 19 L Anion Gap 8 Blood Urea Nitrogen 8 Creatinine 0.97 Glucose Level 98 Hemoglobin A1c 5.6 Calcium Level 8.9 Phosphorus Level 3.3 Magnesium Level 1.7 Albumin 2.5 L Test 05/02/19 11:42 Bedside Glucose 110 Medications Medication Current Medications Atorvastatin Calcium (Lipitor) 40 mg QHS PO Last administered on 05/01/19 20:56; Admin Dose 40 MG; Start 04/23/19 at 21:00 Clonidine (Catapres) 0.1 mg TID PRN PO ELEVATED BLOOD PRESSURE Last administer ed on 04/28/19 22:48; Admin Dose 0.1 MG; Start 04/23/19 at 20:00 Escitalopram Oxalate (Lexapro) 10 mg DAILY PO Last administered on 05/02/19 08:48; Admin Dose 10 MG; Start 04/24/19 at 09:00 IV Flush (NS 3 ml) 3 ml PER PROTOCOL IV ; Start 04/23/19 at 20:00 Ondansetron HCl (Zofran Inj) 4 mg Q6H PRN IV NAUSEA/VOMITING Last administered on 05/01/19 08:56; Admin Dose 4 MG; Start 04/23/19 at 20:00 Acetaminophen (Tylenol Tab) 650 mg Q6H PRN PO .PAIN 1-3 OR TEMP Last administered on 05/01/19 09:25; Admin Dose 650 MG; Start 04/23/19 at 20:00 Morphine Sulfate (morphine) 2 mg Q4H PRN IV .SEVERE PAIN 7-10 Last administered on 6/18/19at 12:27; Admin Dose 2 MG; Start 04/23/19 at 20:00 Docusate Sodium (Colace) 100 mg Q12H PRN PO .CONSTIPATION; Start 04/23/19 at 20:00 Bisacodyl (Dulcolax) 5 mg DAILY PRN PO .CONSTIPATION; Start 04/23/19 at 20:00 Heparin Sodium (Porcine) (Heparin (5000 Units/1ml)) 5,000 unit Q8 SC Last administered on 05/02/19at 05:35; Admin Dose 5,000 UNIT; Start 04/23/19 at 22:00 Lactobacillus Acidophilus (Florajen3 Capsule) 1 each BID PO Last administered on 05/02/19 08:49; Admin Dose 1 EACH; Start 04/23/19 at 21:00 Miscellaneous Information 1 ea NOTE XX ; Start 04/23/19 at 20:30 Glucose (Glutose) 15 gm Q15M PRN PO DECREASED GLUCOSE; Start 04/23/19 at 20:30 Glucose (Glutose) 22.5 gm Q15M PRN PO DECREASED GLUCOSE; Start 04/23/19 at 20:30 Dextrose (D50w Syringe) 25 ml Q15M PRN IV DECREASED GLUCOSE; Start 04/23/19 at 20:30 Dextrose (D50w Syringe) 50 ml Q15M PRN IV DECREASED GLUCOSE; Start 04/23/19 at 20:30 Glucagon (Glucagen) 1 mg Q15M PRN IM DECREASED GLUCOSE; Start 04/23/19 at 20:30 Glucose (Glutose) 15 gm Q15M PRN BUCCAL DECREASED GLUCOSE; Start 04/23/19 at 20:30 [facility]iscellaneous [facility] This patient munguia... PRN PRN XX WOUND CARE; Start 04/24/19 at 05:00 Nystatin (Nystatin Powder) 1 applic BID TOP Last administered on 05/02/19 09:24; Admin Dose 1 APPLIC; Start 04/24/19 at 21:00 Amlodipine Besylate (Norvasc) 10 mg DAILY PO Last administered on 05/02/19 08:49; Admin Dose 10 MG; Start 04/29/19 at 09:00 Hydralazine HCl (Apresoline) 10 mg Q4H PRN IV sbp >160 Last administered on 6/23/19at 20:52; Admin Dose 10 MG; Start 04/28/19 at 11:00 Pantoprazole (Protonix Tab) 40 mg DAILY@06 PO Last administered on 05/02/19at 05:34; Admin Dose 40 MG; Start 04/29/19 at 06:00 Insulin Aspart (Novolog Insulin Pen) NOVOLOG *MILD* ALGORITHM WITH MEALS BEDTIME SC ; Start 04/29/19 at 08:00 Lisinopril (Zestril) 10 mg DAILY PO Last administered on 05/02/19at 08:49; Admin Dose 10 MG; Start 04/29/19 at 09:30 Hyoscyamine (Levsin (Sl)) 0.125 mg Q4H PRN SL ab cramping; Start 04/29/19 at 12:30 Loperamide HCl (Imodium Cap) 2 mg BID PRN PO DIARRHEA; Start 04/29/19 at 12:30 Polyethylene Glycol (Miralax) 17 gm DAILY PRN PO constipation; Start 05/01/19 at 17:00 Metoclopramide HCl (Reglan) 5 mg Q6 IV Last administered on 05/02/19at 11:34; Admin Dose 5 MG; Start 05/01/19 at 18:00 KAREN GARNER MD May 02, 2019 15:45
--- NOTE | 2019-05-02 15:49 | CONS ---
Assessment/Plan Assessment/Plan Hospital Course (Demo Recall) Awake, complaining of not having appetite, had 2 loose stools today, no fevers, looks comfortable Urine culture on April 17 grew Klebsiella pneumoniae and E. coli both susceptible to cefotaxime and Ancef also tobramycin Antimicrobials: none Physical examination: Obese well-developed elderly woman who is awake in no distress. Head atraumatic normocephalic sclera nonicteric vehicle mucosa dry neck is obese chest rise symmetrical breath sounds diminished bases heart S1-S2 abdomen soft bowel sounds present extremities without cyanosis Assessment: 1. Recurrent UTI 2. Morbid obesity 3. Diabetes 4. Hypertension 5. Diarrhea, C. difficile negative 6. Persistent nausea Plan: Clinically stable, off antibiotics, follow GI rec-s Consultation Date/Type/Reason Admit Date/Time Apr 23, 2019 at 18:26 Initial Consult Date Type of Consult id Date/Time of Note DATE: 05/02/19 TIME: 15:48 Exam/Review of Systems Exam Vitals Vital Signs Date Temp Pulse Resp B/P (MAP) Pulse Ox O2 O2 Flow FiO2 Time Delivery Rate 05/02/19 99.3 81 24 143/64 94 15:15 (90) 05/01/19 Room Air 07:47 04/28/19 2.0 18:45 Intake and Output 05/01/19 05/01/19 05/02/19 1515:00 23:00 07:00 IntakeIntake Total 780 ml 650 ml BalanceBalance 780 ml 650 ml Results Result Diagram: 05/02/19 0507 05/02/19 0507 Results 24hrs Laboratory Tests Test 05/01/19 16:51 05/01/19 20:54 05/02/19 05:07 05/02/19 07:59 Bedside Glucose 105 121 105 White Blood Count 15.3 H Red Blood Count 3.47 L Hemoglobin 8.9 L Hematocrit 29.2 L Mean Corpuscular 84.1 Volume Mean Corpuscular 25.6 L Hemoglobin Mean Corpuscular 30.5 L Hemoglobin Concent Red Cell 17.7 H Distribution Width Platelet Count 387 Mean Platelet Volume 10.1 Immature 7.000 H Granulocytes % Neutrophils % Segmented 55 Neutrophils % (Manual) Band Neutrophils % 7 H (Manual) Lymphocytes % Lymphocytes % 17 (Manual) Monocytes % Monocytes % (Manual) 12 H Eosinophils % Eosinophils % 6 (Manual) Basophils % Basophils % (Manual) 1 Metamyelocytes % 1 H (manual) Promyelocytes % 1 H (Manual) Nucleated Red Blood 0.0 Cells % Immature 1.070 H Granulocytes # Neutrophils # Neutrophils # 8.6 H (Manual) Band Neutrophils # 1.0 H Lymphocytes (Manual) 2.6 Lymphocytes # Monocytes # Monocytes # (Manual) 1.8 H Eosinophils # Basophils # Basophils # (Manual) 0.1 H Metamyelocytes # 0.1 H Promyelocytes # 0.1 H Nucleated Red Blood Cells # Platelet Estimate NORMAL Giant Platelets 1 H Polychromasia 1+ Hypochromasia 1+ Anisocytosis 1+ Microcytosis 1+ Sodium Level 130 L Potassium Level 3.3 L Chloride Level 103 Carbon Dioxide Level 19 L Anion Gap 8 Blood Urea Nitrogen 8 Creatinine 0.97 Glucose Level 98 Hemoglobin A1c 5.6 Calcium Level 8.9 Phosphorus Level 3.3 Magnesium Level 1.7 Albumin 2.5 L Test 05/02/19 11:42 Bedside Glucose 110 Medications Medication Current Medications Atorvastatin Calcium (Lipitor) 40 mg QHS PO Last administered on 05/01/19 20:56; Admin Dose 40 MG; Start 04/23/19 at 21:00 Clonidine (Catapres) 0.1 mg TID PRN PO ELEVATED BLOOD PRESSURE Last administered on 04/28/19 22:48; Admin Dose 0.1 MG; Start 04/23/19 at 20:00 Escitalopram Oxalate (Lexapro) 10 mg DAILY PO Last administered on 05/02/19 08:48; Admin Dose 10 MG; Start 04/24/19 at 09:00 IV Flush (NS 3 ml) 3 ml PER PROTOCOL IV ; Start 04/23/19 at 20:00 Ondansetron HCl (Zofran Inj) 4 mg Q6H PRN IV NAUSEA/VOMITING Last administered on 05/01/19 08:56; Admin Dose 4 MG; Start 04/23/19 at 20:00 Acetaminophen (Tylenol Tab) 650 mg Q6H PRN PO .PAIN 1-3 OR TEMP Last administered on 05/01/19 09:25; Admin Dose 650 MG; Start 04/23/19 at 20:00 Morphine Sulfate (morphine) 2 mg Q4H PRN IV .SEVERE PAIN 7-10 Last administered on 04/25/19 12:27; Admin Dose 2 MG; Start 04/23/19 at 20:00 Docusate Sodium (Colace) 100 mg Q12H PRN PO .CONSTIPATION; Start 04/23/19 at 20:00 Bisacodyl (Dulcolax) 5 mg DAILY PRN PO .CONSTIPATION; Start 04/23/19 at 20:00 Heparin Sodium (Porcine) (Heparin (5000 Units/1ml)) 5,000 unit Q8 SC Last administered on 05/02/19at 05:35; Admin Dose 5,000 UNIT; Start 04/23/19 at 22:00 Lactobacillus Acidophilus (Florajen3 Capsule) 1 each BID PO Last administered on 05/02/19 08:49; Admin Dose 1 EACH; Start 04/23/19 at 21:00 Miscellaneous Information 1 ea NOTE XX ; Start 04/23/19 at 20:30 Glucose (Glutose) 15 gm Q15M PRN PO DECREASED GLUCOSE; Start 04/23/19 at 20:30 Glucose (Glutose) 22.5 gm Q15M PRN PO DECREASED GLUCOSE; Start 04/23/19 at 20:30 Dextrose (D50w Syringe) 25 ml Q15M PRN IV DECREASED GLUCOSE; Start 04/23/19 at 20:30 Dextrose (D50w Syringe) 50 ml Q15M PRN IV DECREASED GLUCOSE; Start 04/23/19 at 20:30 Glucagon (Glucagen) 1 mg Q15M PRN IM DECREASED GLUCOSE; Start 04/23/19 at 20:30 Glucose (Glutose) 15 gm Q15M PRN BUCCAL DECREASED GLUCOSE; Start 04/23/19 at 20:30 Miscellaneous Information (Pending [facility] Order For Wound Care) This patient munguia... PRN PRN XX WOUND CARE; Start 04/24/19 at 05:00 Nystatin (Nystatin Powder) 1 applic BID TOP Last administered on 05/02/19at 09:24; Admin Dose 1 APPLIC; Start 04/24/19 at 21:00 Amlodipine Besylate (Norvasc) 10 mg DAILY PO Last administered on 05/02/19at 08:49; Admin Dose 10 MG; Start 04/29/19 at 09:00 Hydralazine HCl (Apresoline) 10 mg Q4H PRN IV sbp >160 Last administered on 04/30/19at 20:52; Admin Dose 10 MG; Start 04/28/19 at 11:00 Pantoprazole (Protonix Tab) 40 mg DAILY@06 PO Last administered on 05/02/19at 05:34; Admin Dose 40 MG; Start 04/29/19 at 06:00 Insulin Aspart (Novolog Insulin Pen) NOVOLOG *MILD* ALGORITHM WITH MEALS BEDTIME SC ; Start 04/29/19 at 08:00 Lisinopril (Zestril) 10 mg DAILY PO Last administered on 05/02/19at 08:49; Admin Dose 10 MG; Start 04/29/19 at 09:30 Hyoscyamine (Levsin (Sl)) 0.125 mg Q4H PRN SL ab cramping; Start 04/29/19 at 12:30 Loperamide HCl (Imodium Cap) 2 mg BID PRN PO DIARRHEA; Start 04/29/19 at 12:30 Polyethylene Glycol (Miralax) 17 gm DAILY PRN PO constipation; Start 05/01/19 at 17:00 Metoclopramide HCl (Reglan) 5 mg Q6 IV Last administered on 05/02/19at 11:34; Admin Dose 5 MG; Start 05/01/19 at 18:00 ANA MARIA ZULETA NP May 02, 2019 15:49
[2019-05-02 20:00] VITALS: BP 156/69; PULSE 85; RESP 18
[2019-05-02] MEDS: ATORVASTATIN 40 MG TAB PO SCH (20:44)
[2019-05-02] MEDS: ONDANSETRON 4 MG INJ IV PRN (22:12)
[2019-05-03] MEDS: METOCLOPRAMIDE 10 MG INJ IV SCH ×4 (00:39→17:00)
[2019-05-03 02:00] VITALS: BP 153/65; PULSE 89; RESP 17
[2019-05-03] MEDS: PANTOPRAZOLE (EC) 40 MG TAB PO SCH (05:37)
[2019-05-03] MEDS: HEPARIN 5,000 UNIT/1 ML VIAL SC SCH ×3 (05:38→21:06)
[2019-05-03 08:00] VITALS: BP 141/67; PULSE 88; RESP 18
[2019-05-03] MEDS: INSULIN ASPART [NOVOLOG] 3 ML PEN SC SCH ×4 (08:00→21:00)
[2019-05-03] MEDS: L ACIDOPHIL/B LACTIS/B LONGUM CAPSULE PO SCH ×2 (08:26→21:04)
[2019-05-03] MEDS: ESCITALOPRAM 10 MG TAB PO SCH (08:26)
[2019-05-03] MEDS: LISINOPRIL 10 MG TAB PO SCH (08:29)
[2019-05-03] MEDS: AMLODIPINE 10 MG TAB PO SCH (08:30)
[2019-05-03] MEDS: NYSTATIN 30 GM POWDER BTL TOP SCH ×2 (08:31→21:10)
[2019-05-03] MEDS: SOD CHLORIDE 0.9% 1,000 ML IV SCH ×2 (09:46→19:38)
--- NOTE | 2019-05-03 12:05 | PN ---
Date/Time of Note Date/Time of Note DATE: 05/03/19 TIME: 11:56 Assessment/Plan VTE Prophylaxis Risk score (from Ns)>0 risk: 6 SCD applied (from Ns): Yes Pharmacological prophylaxis: other (scds) Lines/Catheters [facility] Saline Lock Urinary Cath still in place: No Assessment/Plan Hospital Course Summary Assessment and Plan: Assessment: Nausea/vomiting- unclear etiology EGD 04/28/2019 Moderate distal esophagitis. Moderate gastritis. Rule out internal infection. Biopsies obtained. Evidence of previous gastrostomy tube site well-healed. Otherwise normal EGD. Gastric biopsies-negative for H. pylori organisms, no dysplasia or intestinal metaplasia is identified, patchy minimal chronic inflammation Diarrhea- possibly 2/2 to antibiotics Colonoscopy 04/28/2019 3 mm sessile polyp in the ascending colon, ablated. Moderate diverticulosis of the colon. Moderate-sized internal and large external hemorrhoids. Otherwise normal colonoscopy Ascending colon polyp, biopsy: tubular adenoma -Stool studies COLIFORM, ELYSSA ALBICANS -CDIFF- Negative -O&P- Negative Normocytic anemia Abdominal cramping- improved UTI currently on antibiotics DM Dyslipidemia Pretension Plan: Repeat colonoscopy in 5 years Levsin/Continue PPI Encourage getting OOB, deep breathing Discussed importance of getting out bed, and sitting in chair during meals Probiotics Patient seen in collaboration with Dr. Vasquez Subjective: Course reviewed with nursing staff Patient interviewed and examined All labs, imaging and other results reviewed Diarrhea resolved, Pt continues with persistent n/v No over night events, continue to monitor Exam PHYSICAL EXAMINATION: GENERAL: Alert & oriented x 3, in no acute distress SKIN: No lesions, HEAD: Normocephalic, atraumatic, no tenderness. EYES: Pupils equal reactive to light and accommodation, no discharge. EARS/NOSE AND THROAT: Ears normal. NECK: Supple, no masses. CHEST: Inspection within normal limits. CARDIOVASCULAR: Heart: Regular rate and rhythm RESPIRATORY: Lungs clear to auscultation GASTROINTESTINAL AND LIVER: Abdomen: Soft, mild lower abd tenderness- improved, non-distended, no hernias, no masses, normoactive bowel sounds. Rectal: Deferred. GENITOURINARY:Female genitalia within normal limits. EXTREMITIES: No cyanosis, clubbing or edema. Result Diagram: 05/03/19 0520 05/03/19 0520 Results 24hrs Laboratory Tests Test 05/02/19 17:37 05/02/19 20:43 05/03/19 05:20 05/03/19 08:24 Bedside Glucose 114 102 93 White Blood Count 16.2 H Red Blood Count 3.72 L Hemoglobin 9.6 L Hematocrit 30.1 L Mean Corpuscular 80.9 L Volume Mean Corpuscular 25.8 L Hemoglobin Mean Corpuscular 31.9 L Hemoglobin Concent Red Cell 17.4 H Distribution Width Platelet Count 407 Mean Platelet Volume 9.7 Immature 7.600 H Granulocytes % Neutrophils % Segmented 55 Neutrophils % (Manual) Band Neutrophils % 3 (Manual) Lymphocytes % Lymphocytes % 14 L (Manual) Monocytes % Monocytes % (Manual) 9 Eosinophils % Eosinophils % 7 (Manual) Basophils % Basophils % (Manual) 1 Metamyelocytes % 2 H (manual) Myelocytes % 8 H (Manual) Promyelocytes % 1 H (Manual) Nucleated Red Blood 0.0 Cells % Immature 1.230 H Granulocytes # Neutrophils # Neutrophils # 9.0 H (Manual) Band Neutrophils # 0.4 Lymphocytes (Manual) 2.2 Lymphocytes # Monocytes # Monocytes # (Manual) 1.4 H Eosinophils # Basophils # Basophils # (Manual) 0.1 H Metamyelocytes # 0.3 H Myelocytes # 1.2 H Promyelocytes # 0.1 H Nucleated Red Blood Cells # Platelet Estimate NORMAL Polychromasia 1+ Anisocytosis 1+ Sodium Level 129 L Potassium Level 4.4 Chloride Level 101 Carbon Dioxide Level 20 L Anion Gap 8 Blood Urea Nitrogen 7 Creatinine 0.91 Glucose Level 90 Calcium Level 9.7 Phosphorus Level 3.1 Magnesium Level 1.9 Albumin 2.4 L Exam/Review of Systems Exam Vitals Vital Signs Date Temp Pulse Resp B/P (MAP) Pulse Ox O2 O2 Flow FiO2 Time Delivery Rate 05/03/19 98.5 88 18 141/67 97 08:00 (91) 05/01/19 Room Air 07:47 Intake and Output 05/02/19 05/02/19 05/03/19 1515:00 23:00 07:00 IntakeIntake Total 338 ml 150 ml BalanceBalance 338 ml 150 ml Results Results 24hrs Laboratory Tests Test 05/02/19 17:37 05/02/19 20:43 05/03/19 05:20 05/03/19 08:24 Bedside Glucose 114 102 93 White Blood Count 16.2 H Red Blood Count 3.72 L Hemoglobin 9.6 L Hematocrit 30.1 L Mean Corpuscular 80.9 L Volume Mean Corpuscular 25.8 L Hemoglobin Mean Corpuscular 31.9 L Hemoglobin Concent Red Cell 17.4 H Distribution Width Platelet Count 407 Mean Platelet Volume 9.7 Immature 7.600 H Granulocytes % Neutrophils % Segmented 55 Neutrophils % (Manual) Band Neutrophils % 3 (Manual) Lymphocytes % Lymphocytes % 14 L (Manual) Monocytes % Monocytes % (Manual) 9 Eosinophils % Eosinophils % 7 (Manual) Basophils % Basophils % (Manual) 1 Metamyelocytes % 2 H (manual) Myelocytes % 8 H (Manual) Promyelocytes % 1 H (Manual) Nucleated Red Blood 0.0 Cells % Immature 1.230 H Granulocytes # Neutrophils # Neutrophils # 9.0 H (Manual) Band Neutrophils # 0.4 Lymphocytes (Manual) 2.2 Lymphocytes # Monocytes # Monocytes # (Manual) 1.4 H Eosinophils # Basophils # Basophils # (Manual) 0.1 H Metamyelocytes # 0.3 H Myelocytes # 1.2 H Promyelocytes # 0.1 H Nucleated Red Blood Cells # Platelet Estimate NORMAL Polychromasia 1+ Anisocytosis 1+ Sodium Level 129 L Potassium Level 4.4 Chloride Level 101 Carbon Dioxide Level 20 L Anion Gap 8 Blood Urea Nitrogen 7 Creatinine 0.91 Glucose Level 90 Calcium Level 9.7 Phosphorus Level 3.1 Magnesium Level 1.9 Albumin 2.4 L Medications Medication Current Medications Atorvastatin Calcium (Lipitor) 40 mg QHS PO Last administered on 05/02/19at 20:44; Admin Dose 40 MG; Start 04/23/19 at 21:00 Clonidine (Catapres) 0.1 mg TID PRN PO ELEVATED BLOOD PRESSURE Last administered on 04/28/19at 22:48; Admin Dose 0.1 MG; Start 04/23/19 at 20:00 Escitalopram Oxalate (Lexapro) 10 mg DAILY PO Last administered on 05/03/19at 08:26; Admin Dose 10 MG; Start 04/24/19 at 09:00 IV Flush (NS 3 ml) 3 ml PER PROTOCOL IV ; Start 04/23/19 at 20:00 Ondansetron HCl (Zofran Inj) 4 mg Q6H PRN IV NAUSEA/VOMITING Last administered on 05/02/19at 22:12; Admin Dose 4 MG; Start 04/23/19 at 20:00 Acetaminophen (Tylenol Tab) 650 mg Q6H PRN PO .PAIN 1-3 OR TEMP Last administ ered on 05/01/19at 09:25; Admin Dose 650 MG; Start 04/23/19 at 20:00 Morphine Sulfate (morphine) 2 mg Q4H PRN IV .SEVERE PAIN 7-10 Last administered on 04/25/19at 12:27; Admin Dose 2 MG; Start 04/23/19 at 20:00 Docusate Sodium (Colace) 100 mg Q12H PRN PO .CONSTIPATION; Start 04/23/19 at 20:00 Bisacodyl (Dulcolax) 5 mg DAILY PRN PO .CONSTIPATION; Start 04/23/19 at 20:00 Heparin Sodium (Porcine) (Heparin (5000 Units/1ml)) 5,000 unit Q8 SC Last administered on 05/03/19at 05:38; Admin Dose 5,000 UNIT; Start 04/23/19 at 22:00 Lactobacillus Acidophilus (Florajen3 Capsule) 1 each BID PO Last administered on 05/03/19at 08:26; Admin Dose 1 EACH; Start 04/23/19 at 21:00 Miscellaneous Information 1 ea NOTE XX ; Start 04/23/19 at 20:30 Glucose (Glutose) 15 gm Q15M PRN PO DECREASED GLUCOSE; Start 04/23/19 at 20:30 Glucose (Glutose) 22.5 gm Q15M PRN PO DECREASED GLUCOSE; Start 04/23/19 at 20:30 Dextrose (D50w Syringe) 25 ml Q15M PRN IV DECREASED GLUCOSE; Start 04/23/19 at 20:30 Dextrose (D50w Syringe) 50 ml Q15M PRN IV DECREASED GLUCOSE; Start 04/23/19 at 20:30 Glucagon (Glucagen) 1 mg Q15M PRN IM DECREASED GLUCOSE; Start 04/23/19 at 20:30 Glucose (Glutose) 15 gm Q15M PRN BUCCAL DECREASED GLUCOSE; Start 04/23/19 at 20:30 Miscellaneous Information (Pending [facility] Order For Wound Care) This patient munguia... PRN PRN XX WOUND CARE; Start 04/24/19 at 05:00 Nystatin (Nystatin Powder) 1 applic BID TOP Last administered on 05/03/19at 08:31; Admin Dose 1 APPLIC; Start 04/24/19 at 21:00 Amlodipine Besylate (Norvasc) 10 mg DAILY PO Last administered on 05/03/19at 08:30; Admin Dose 10 MG; Start 04/29/19 at 09:00 Hydralazine HCl (Apresoline) 10 mg Q4H PRN IV sbp >160 Last administered on 04/09 01/24at 20:52; Admin Dose 10 MG; Start 04/28/19 at 11:00 Pantoprazole (Protonix Tab) 40 mg DAILY@06 PO Last administered on 05/03/19at 05:37; Admin Dose 40 MG; Start 04/29/19 at 06:00 Insulin Aspart (Novolog Insulin Pen) NOVOLOG *MILD* ALGORITHM WITH MEALS BEDTIME SC ; Start 04/29/19 at 08:00 Lisinopril (Zestril) 10 mg DAILY PO Last administered on 05/03/19 08:29; Admin Dose 10 MG; Start 04/29/19 at 09:30 Hyoscyamine (Levsin (Sl)) 0.125 mg Q4H PRN SL ab cramping; Start 04/29/19 at 12:30 Loperamide HCl (Imodium Cap) 2 mg BID PRN PO DIARRHEA; Start 04/29/19 at 12:30 Polyethylene Glycol (Miralax) 17 gm DAILY PRN PO constipation; Start 05/01/19 at 17:00 Metoclopramide HCl (Reglan) 5 mg Q6 IV Last administered on 05/03/19at 05:37; Admin Dose 5 MG; Start 05/01/19 at 18:00 Sodium Chloride 1,000 ml @ 100 mls/hr Q10H IV Last administered on 05/03/19at 09:46; Admin Dose 100 MLS/HR; Start 05/03/19 at 09:30 BALTA HENDERSON May 03, 2019 12:05
[2019-05-03 14:00] VITALS: BP 145/64; PULSE 81; RESP 28
--- NOTE | 2019-05-03 15:55 | CONS ---
Assessment/Plan Assessment/Plan Hospital Course (Demo Recall) Patient is awake laying comfortably in bed no fevers overnight. WBC went up to 16.2 BUN 7 creatinine 0.91 Urine culture on April 17 grew Klebsiella pneumoniae and E. coli both susceptible to cefotaxime and Ancef also tobramycin Antimicrobials: none Physical examination: Obese well-developed elderly woman who is awake in no distress. Head atraumatic normocephalic sclera nonicteric vehicle mucosa dry neck is obese chest rise symmetrical breath sounds diminished bases heart S1-S2 abdomen soft bowel sounds present extremities without cyanosis Assessment: 1. Recurrent UTI 2. Morbid obesity 3. Diabetes 4. Hypertension 5. Diarrhea, C. difficile negative 6. Persistent nausea Plan: Clinically stable, off antibiotics, will order chest x-ray and repeat urine culture, follow GI recommendations Consultation Date/Type/Reason Admit Date/Time Apr 23, 2019 at 18:26 Initial Consult Date Type of Consult id Date/Time of Note DATE: 05/03/19 TIME: 15:54 Exam/Review of Systems Exam Vitals Vital Signs Date Temp Pulse Resp B/P (MAP) Pulse Ox O2 O2 Flow FiO2 Time Delivery Rate 05/03/19 98.5 88 18 141/67 97 08:00 (91) 05/01/19 Room Air 07:47 Intake and Output 05/02/19 05/02/19 05/03/19 1515:00 23:00 07:00 IntakeIntake Total 338 ml 150 ml BalanceBalance 338 ml 150 ml Results Result Diagram: 05/03/19 0520 05/03/19 0520 Results 24hrs Laboratory Tests Test 05/02/19 17:37 05/02/19 20:43 05/03/19 05:20 05/03/19 08:24 Bedside Glucose 114 102 93 White Blood Count 16.2 H Red Blood Count 3.72 L Hemoglobin 9.6 L Hematocrit 30.1 L Mean Corpuscular 80.9 L Volume Mean Corpuscular 25.8 L Hemoglobin Mean Corpuscular 31.9 L Hemoglobin Concent Red Cell 17.4 H Distribution Width Platelet Count 407 Mean Platelet Volume 9.7 Immature 7.600 H Granulocytes % Neutrophils % Segmented 55 Neutrophils % (Manual) Band Neutrophils % 3 (Manual) Lymphocytes % Lymphocytes % 14 L (Manual) Monocytes % Monocytes % (Manual) 9 Eosinophils % Eosinophils % 7 (Manual) Basophils % Basophils % (Manual) 1 Metamyelocytes % 2 H (manual) Myelocytes % 8 H (Manual) Promyelocytes % 1 H (Manual) Nucleated Red Blood 0.0 Cells % Immature 1.230 H Granulocytes # Neutrophils # Neutrophils # 9.0 H (Manual) Band Neutrophils # 0.4 Lymphocytes (Manual) 2.2 Lymphocytes # Monocytes # Monocytes # (Manual) 1.4 H Eosinophils # Basophils # Basophils # (Manual) 0.1 H Metamyelocytes # 0.3 H Myelocytes # 1.2 H Promyelocytes # 0.1 H Nucleated Red Blood Cells # Platelet Estimate NORMAL Polychromasia 1+ Anisocytosis 1+ Sodium Level 129 L Potassium Level 4.4 Chloride Level 101 Carbon Dioxide Level 20 L Anion Gap 8 Blood Urea Nitrogen 7 Creatinine 0.91 Glucose Level 90 Calcium Level 9.7 Phosphorus Level 3.1 Magnesium Level 1.9 Albumin 2.4 L Test 05/03/19 12:18 Bedside Glucose 128 Medications Medication Current Medications Atorvastatin Calcium (Lipitor) 40 mg QHS PO Last administered on 05/02/19 20:44; Admin Dose 40 MG; Start 04/23/19 at 21:00 Clonidine (Catapres) 0.1 mg TID PRN PO ELEVATED BLOOD PRESSURE Last administered on 04/28/19 22:48; Admin Dose 0.1 MG; Start 04/23/19 at 20:00 Escitalopram Oxalate (Lexapro) 10 mg DAILY PO Last administered on 05/03/19 08:26; Admin Dose 10 MG; Start 04/24/19 at 09:00 IV Flush (NS 3 ml) 3 ml PER PROTOCOL IV ; Start 04/23/19 at 20:00 Ondansetron HCl (Zofran Inj) 4 mg Q6H PRN IV NAUSEA/VOMITING Last administered on 05/02/19 22:12; Admin Dose 4 MG; Start 04/23/19 at 20:00 Acetaminophen (Tylenol Tab) 650 mg Q6H PRN PO .PAIN 1-3 OR TEMP Last administered on 05/01/19 09:25; Admin Dose 650 MG; Start 04/23/19 at 20:00 Morphine Sulfate (morphine) 2 mg Q4H PRN IV .SEVERE PAIN 7-10 Last administered on 04/25/19 12:27; Admin Dose 2 MG; Start 04/23/19 at 20:00 Docusate Sodium (Colace) 100 mg Q12H PRN PO .CONSTIPATION; Start 04/23/19 at 20 :00 Bisacodyl (Dulcolax) 5 mg DAILY PRN PO .CONSTIPATION; Start 04/23/19 at 20:00 Heparin Sodium (Porcine) (Heparin (5000 Units/1ml)) 5,000 unit Q8 SC Last administered on 05/03/19at 13:39; Admin Dose 5,000 UNIT; Start 04/23/19 at 22:00 Lactobacillus Acidophilus (Florajen3 Capsule) 1 each BID PO Last administered on 05/03/19at 08:26; Admin Dose 1 EACH; Start 04/23/19 at 21:00 Miscellaneous Information 1 ea NOTE XX ; Start 04/23/19 at 20:30 Glucose (Glutose) 15 gm Q15M PRN PO DECREASED GLUCOSE; Start 04/23/19 at 20:30 Glucose (Glutose) 22.5 gm Q15M PRN PO DECREASED GLUCOSE; Start 04/23/19 at 20:30 Dextrose (D50w Syringe) 25 ml Q15M PRN IV DECREASED GLUCOSE; Start 04/23/19 at 20:30 Dextrose (D50w Syringe) 50 ml Q15M PRN IV DECREASED GLUCOSE; Start 04/23/19 at 20:30 Glucagon (Glucagen) 1 mg Q15M PRN IM DECREASED GLUCOSE; Start 04/23/19 at 20:30 Glucose (Glutose) 15 gm Q15M PRN BUCCAL DECREASED GLUCOSE; Start 04/23/19 at 20:30 Miscellaneous Information (Pending [facility] Order For Wound Care) This patient munguia... PRN PRN XX WOUND CARE; Start 04/24/19 at 05:00 Nystatin (Nystatin Powder) 1 applic BID TOP Last administered on 05/03/19at 08:31; Admin Dose 1 APPLIC; Start 04/24/19 at 21:00 Amlodipine Besylate (Norvasc) 10 mg DAILY PO Last administered on 05/03/19at 08:30; Admin Dose 10 MG; Start 04/29/19 at 09:00 Hydralazine HCl (Apresoline) 10 mg Q4H PRN IV sbp >160 Last administered on 04/30/19at 20:52; Admin Dose 10 MG; Start 04/28/19 at 11:00 Pantoprazole (Protonix Tab) 40 mg DAILY@06 PO Last administered on 05/03/19at 05:37; Admin Dose 40 MG; Start 04/29/19 at 06:00 Insulin Aspart (Novolog Insulin Pen) NOVOLOG *MILD* ALGORITHM WITH MEALS BEDTIME SC ; Start 04/29/19 at 08:00 Lisinopril (Zestril) 10 mg DAILY PO Last administered on 05/03/19at 08:29; Admin Dose 10 MG; Start 04/29/19 at 09:30 Hyoscyamine (Levsin (Sl)) 0.125 mg Q4H PRN SL ab cramping; Start 04/29/19 at 1 2:30 Loperamide HCl (Imodium Cap) 2 mg BID PRN PO DIARRHEA; Start 04/29/19 at 12:30 Polyethylene Glycol (Miralax) 17 gm DAILY PRN PO constipation; Start 05/01/19 at 17:00 Metoclopramide HCl (Reglan) 5 mg Q6 IV Last administered on 05/03/19at 12:51; Admin Dose 5 MG; Start 05/01/19 at 18:00 Sodium Chloride 1,000 ml @ 100 mls/hr Q10H IV Last administered on 05/03/19at 09:46; Admin Dose 100 MLS/HR; Start 05/03/19 at 09:30 ANA MARIA ZULETA NP May 03, 2019 15:55
--- NOTE | 2019-05-03 16:42 | PN ---
Date/Time of Note Date/Time of Note DATE: 05/03/19 TIME: 16:40 Assessment/Plan VTE Prophylaxis Risk score (from Ns)>0 risk: 6 SCD applied (from Ns): Yes Pharmacological prophylaxis: heparin Lines/Catheters IV Catheter Type (from Nrsg): Saline Lock Urinary Cath still in place: No Assessment/Plan Assessment/Plan 1. Nausea and vomiting, acute on chronic - GI on board and appreciate recommendations. will order gastric emptying study and believes may need PEG placement for nutrition given poor PO tolerance - Continue PPI, Levsin, and Carafate - Encouraged PO intake and ambulation 2. Urinary tract infection - ID on board and Will monitor off antibiotics 3. Diarrhea- resolved - continue probiotics - stool studies noted 4. Hypertension - continue home medications - adjust as needed for better control 5. Diabetes mellitus - ISS and accuchecks 6. History of urinary tract infection - Patient has a history of multidrug-resistant UTIs 7. Disposition - Gastric emptying study ordered and further plan of care based on results Result Diagram: 05/03/19 0520 05/03/19 0520 Results 24hrs Laboratory Tests Test 05/02/19 17:37 05/02/19 20:43 05/03/19 05:20 05/03/19 08:24 Bedside Glucose 114 102 93 White Blood Count 16.2 H Red Blood Count 3.72 L Hemoglobin 9.6 L Hematocrit 30.1 L Mean Corpuscular 80.9 L Volume Mean Corpuscular 25.8 L Hemoglobin Mean Corpuscular 31.9 L Hemoglobin Concent Red Cell 17.4 H Distribution Width Platelet Count 407 Mean Platelet Volume 9.7 Immature 7.600 H Granulocytes % Neutrophils % Segmented 55 Neutrophils % (Manual) Band Neutrophils % 3 (Manual) Lymphocytes % Lymphocytes % 14 L (Manual) Monocytes % Monocytes % (Manual) 9 Eosinophils % Eosinophils % 7 (Manual) Basophils % Basophils % (Manual) 1 Metamyelocytes % 2 H (manual) Myelocytes % 8 H (Manual) Promyelocytes % 1 H (Manual) Nucleated Red Blood 0.0 Cells % Immature 1.230 H Granulocytes # Neutrophils # Neutrophils # 9.0 H (Manual) Band Neutrophils # 0.4 Lymphocytes (Manual) 2.2 Lymphocytes # Monocytes # Monocytes # (Manual) 1.4 H Eosinophils # Basophils # Basophils # (Manual) 0.1 H Metamyelocytes # 0.3 H Myelocytes # 1.2 H Promyelocytes # 0.1 H Nucleated Red Blood Cells # Platelet Estimate NORMAL Polychromasia 1+ Anisocytosis 1+ Sodium Level 129 L Potassium Level 4.4 Chloride Level 101 Carbon Dioxide Level 20 L Anion Gap 8 Blood Urea Nitrogen 7 Creatinine 0.91 Glucose Level 90 Calcium Level 9.7 Phosphorus Level 3.1 Magnesium Level 1.9 Albumin 2.4 L Test 05/03/19 12:18 Bedside Glucose 128 Subjective 24 Hr Interval Summary Free Text/Dictation Patient still with nausea and vomiting. Diarrhea has resolved. Exam/Review of Systems Exam Vitals Vital Signs Date Temp Pulse Resp B/P (MAP) Pulse Ox O2 O2 Flow FiO2 Time Delivery Rate 05/03/19 98.5 81 28 145/64 92 14:00 (91) 05/01/19 Room Air 07:47 Intake and Output 05/02/19 05/02/19 05/03/19 1515:00 23:00 07:00 IntakeIntake Total 338 ml 150 ml BalanceBalance 338 ml 150 ml Exam General: Distress secondary to nausea, pale complexion Neck: Supple Respiratory: Clear to auscultation bilaterally. no wheezing or rhonchi Cardiovascular: S1, S2, regular rate and rhythm, no obvious murmurs Gastrointestinal: soft, non-tender to palpation, nondistended, bowel sounds heard. Neurological: Moves all extremities spontaneously Skin: No new skin lesions Results Results 24hrs Laboratory Tests Test 05/02/19 17:37 05/02/19 20:43 05/03/19 05:20 05/03/19 08:24 Bedside Glucose 114 102 93 White Blood Count 16.2 H Red Blood Count 3.72 L Hemoglobin 9.6 L Hematocrit 30.1 L Mean Corpuscular 80.9 L Volume Mean Corpuscular 25.8 L Hemoglobin Mean Corpuscular 31.9 L Hemoglobin Concent Red Cell 17.4 H Distribution Width Platelet Count 407 Mean Platelet Volume 9.7 Immature 7.600 H Granulocytes % Neutrophils % Segmented 55 Neutrophils % (Manual) Band Neutrophils % 3 (Manual) Lymphocytes % Lymphocytes % 14 L (Manual) Monocytes % Monocytes % (Manual) 9 Eosinophils % Eosinophils % 7 (Manual) Basophils % Basophils % (Manual) 1 Metamyelocytes % 2 H (manual) Myelocytes % 8 H (Manual) Promyelocytes % 1 H (Manual) Nucleated Red Blood 0.0 Cells % Immature 1.230 H Granulocytes # Neutrophils # Neutrophils # 9.0 H (Manual) Band Neutrophils # 0.4 Lymphocytes (Manual) 2.2 Lymphocytes # Monocytes # Monocytes # (Manual) 1.4 H Eosinophils # Basophils # Basophils # (Manual) 0.1 H Metamyelocytes # 0.3 H Myelocytes # 1.2 H Promyelocytes # 0.1 H Nucleated Red Blood Cells # Platelet Estimate NORMAL Polychromasia 1+ Anisocytosis 1+ Sodium Level 129 L Potassium Level 4.4 Chloride Level 101 Carbon Dioxide Level 20 L Anion Gap 8 Blood Urea Nitrogen 7 Creatinine 0.91 Glucose Level 90 Calcium Level 9.7 Phosphorus Level 3.1 Magnesium Level 1.9 Albumin 2.4 L Test 05/03/19 12:18 Bedside Glucose 128 Medications Medication Current Medications Atorvastatin Calcium (Lipitor) 40 mg QHS PO Last administered on 05/02/19 20:44; Admin Dose 40 MG; Start 04/23/19 at 21:00 Clonidine (Catapres) 0.1 mg TID PRN PO ELEVATED BLOOD PRESSURE Last administered on 04/28/19 22:48; Admin Dose 0.1 MG; Start 04/23/19 at 20:00 Escitalopram Oxalate (Lexapro) 10 mg DAILY PO Last administered on 05/03/19 08:26; Admin Dose 10 MG; Start 04/24/19 at 09:00 IV Flush (NS 3 ml) 3 ml PER PROTOCOL IV ; Start 04/23/19 at 20:00 Ondansetron HCl (Zofran Inj) 4 mg Q6H PRN IV NAUSEA/VOMITING Last administered on 05/02/19 22:12; Admin Dose 4 MG; Start 04/23/19 at 20:00 Acetaminophen (Tylenol Tab) 650 mg Q6H PRN PO .PAIN 1-3 OR TEMP Last administered on 05/01/19 09:25; Admin Dose 650 MG; Start 04/23/19 at 20:00 Morphine Sulfate (morphine) 2 mg Q4H PRN IV .SEVERE PAIN 7-10 Last administered on 04/25/19 12:27; Admin Dose 2 MG; Start 04/23/19 at 20:00 Docusate Sodium (Colace) 100 mg Q12H PRN PO .CONSTIPATION; Start 04/23/19 at 20:00 Bisacodyl (Dulcolax) 5 mg DAILY PRN PO .CONSTIPATION; Start 04/23/19 at 20:00 Heparin Sodium (Porcine) (Heparin (5000 Units/1ml)) 5,000 unit Q8 SC Last admi nistered on 05/03/19at 13:39; Admin Dose 5,000 UNIT; Start 04/23/19 at 22:00 Lactobacillus Acidophilus (Florajen3 Capsule) 1 each BID PO Last administered on 05/03/19at 08:26; Admin Dose 1 EACH; Start 04/23/19 at 21:00 Miscellaneous Information 1 ea NOTE XX ; Start 04/23/19 at 20:30 Glucose (Glutose) 15 gm Q15M PRN PO DECREASED GLUCOSE; Start 04/23/19 at 20:30 Glucose (Glutose) 22.5 gm Q15M PRN PO DECREASED GLUCOSE; Start 04/23/19 at 20:30 Dextrose (D50w Syringe) 25 ml Q15M PRN IV DECREASED GLUCOSE; Start 04/23/19 at 20:30 Dextrose (D50w Syringe) 50 ml Q15M PRN IV DECREASED GLUCOSE; Start 04/23/19 at 20:30 Glucagon (Glucagen) 1 mg Q15M PRN IM DECREASED GLUCOSE; Start 04/23/19 at 20:30 Glucose (Glutose) 15 gm Q15M PRN BUCCAL DECREASED GLUCOSE; Start 04/23/19 at 20:30 Miscellaneous Information (Pending [facility] Order For Wound Care) This patient munguia... PRN PRN XX WOUND CARE; Start 04/24/19 at 05:00 Nystatin (Nystatin Powder) 1 applic BID TOP Last administered on 05/03/19at 08:31; Admin Dose 1 APPLIC; Start 04/24/19 at 21:00 Amlodipine Besylate (Norvasc) 10 mg DAILY PO Last administered on 05/03/19at 08:30; Admin Dose 10 MG; Start 04/29/19 at 09:00 Hydralazine HCl (Apresoline) 10 mg Q4H PRN IV sbp >160 Last administered on 04/30/19at 20:52; Admin Dose 10 MG; Start 04/28/19 at 11:00 Pantoprazole (Protonix Tab) 40 mg DAILY@06 PO Last administered on 05/03/19at 05:37; Admin Dose 40 MG; Start 04/29/19 at 06:00 Insulin Aspart (Novolog Insulin Pen) NOVOLOG *MILD* ALGORITHM WITH MEALS BEDTIME SC ; Start 04/29/19 at 08:00 Lisinopril (Zestril) 10 mg DAILY PO Last administered on 05/03/19at 08:29; Admin Dose 10 MG; Start 04/29/19 at 09:30 Hyoscyamine (Levsin (Sl)) 0.125 mg Q4H PRN SL ab cramping; Start 04/29/19 at 12:30 Loperamide HCl (Imodium Cap) 2 mg BID PRN PO DIARRHEA; Start 04/29/19 at 12:30 Polyethylene Glycol (Miralax) 17 gm DAILY PRN PO constipation; Start 05/01/19 at 17:00 Metoclopramide HCl (Reglan) 5 mg Q6 IV Last administered on 05/03/19at 12:51; Admin Dose 5 MG; Start 05/01/19 at 18:00 Sodium Chloride 1,000 ml @ 100 mls/hr Q10H IV Last administered on 05/03/19at 09:46; Admin Dose 100 MLS/HR; Start 05/03/19 at 09:30 KAREN GARNER MD May 03, 2019 16:42
[2019-05-03] MEDS: ONDANSETRON 4 MG INJ IV PRN (19:38)
[2019-05-03 20:00] VITALS: BP 154/72; PULSE 89; RESP 20
[2019-05-03] MEDS: ATORVASTATIN 40 MG TAB PO SCH (21:04)
[2019-05-04] MEDS: INSULIN ASPART [NOVOLOG] 3 ML PEN SC SCH ×7 (01:00→21:00)
[2019-05-04] MEDS: METOCLOPRAMIDE 10 MG INJ IV SCH ×4 (01:05→17:45)
[2019-05-04 02:00] VITALS: BP 150/67; PULSE 90; RESP 20
[2019-05-04] MEDS: PANTOPRAZOLE (EC) 40 MG TAB PO SCH (05:00)
[2019-05-04] MEDS: HEPARIN 5,000 UNIT/1 ML VIAL SC SCH ×3 (05:04→20:54)
[2019-05-04] MEDS: SOD CHLORIDE 0.9% 1,000 ML IV SCH ×2 (05:07→15:39)
[2019-05-04 08:00] VITALS: BP 168/72; PULSE 84; RESP 20
[2019-05-04] MEDS: AMLODIPINE 10 MG TAB PO SCH (08:17)
[2019-05-04] MEDS: ESCITALOPRAM 10 MG TAB PO SCH (08:17)
[2019-05-04] MEDS: L ACIDOPHIL/B LACTIS/B LONGUM CAPSULE PO SCH ×2 (08:17→20:56)
[2019-05-04] MEDS: NYSTATIN 30 GM POWDER BTL TOP SCH ×2 (08:18→20:56)
[2019-05-04] MEDS: LISINOPRIL 10 MG TAB PO SCH (08:18)
--- NOTE | 2019-05-04 08:39 | PN ---
Date/Time of Note Date/Time of Note DATE: 05/04/19 TIME: 08:34 Assessment/Plan VTE Prophylaxis Risk score (from Ns)>0 risk: 6 SCD applied (from Nsg): Yes Pharmacological prophylaxis: heparin Lines/Catheters IV Catheter Type (from Nrs): Peripheral IV Urinary Cath still in place: No Assessment/Plan Hospital Course Summary Assessment and Plan: Assessment: Nausea/vomiting- unclear etiology EGD 04/28/2019 Moderate distal esophagitis. Moderate gastritis. Rule out internal infection. Biopsies obtained. Evidence of previous gastrostomy tube site well-healed. Otherwise normal EGD. Gastric biopsies-negative for H. pylori organisms, no dysplasia or intestinal metaplasia is identified, patchy minimal chronic inflammation Diarrhea- possibly 2/2 to antibiotics - resolved Colonoscopy 04/28/2019 3 mm sessile polyp in the ascending colon, ablated. Moderate diverticulosis of the colon. Moderate-sized internal and large external hemorrhoids. Otherwise normal colonoscopy Ascending colon polyp, biopsy: tubular adenoma -Stool studies COLIFORM, ELYSSA ALBICANS -CDIFF- Negative -O&P- Negative Normocytic anemia Abdominal cramping- improved UTI -ID following DM Dyslipidemia HTN Leukocytosis Plan: Gastric emptying study pending- Repeat colonoscopy in 5 years Levsin/Continue PPI Encourage getting OOB, deep breathing. Discussed importance of getting out bed, and sitting in chair during meals Probiotics Patient seen in collaboration with Dr. Vasquez Subjective/Free Text: Course reviewed with nursing staff Patient interviewed and examined All labs, imaging and other results reviewed Patient currently off the floor According to nurses notes, she c/o nause x1 - well controlled with zofran, no over night events VSS. leukocytosis - trending up- blood cx no growth CXR- Elevated right hemidiaphragm. Scattered atelectasis in both lungs. No consolidations. No pneumothorax. Potential anterior right shoulder dislocation. Chronicity is indeterminate Will reassess tomorrow. If nausea and poor appetite persist will need to consider other options to meet daily caloric/nutritional goal. PEG would be last option. Exam Pt off the floor Result Diagram: 05/04/1951805/04/19518 Results 24hrs Laboratory Tests Test 05/03/19 12:18 05/03/19 16:53 05/03/19 21:03 05/04/19 01:04 Bedside Glucose 128 91 97 91 Test 05/04/19 05:02 05/04/19 05:19 05/04/19 08:13 Bedside Glucose 90 95 White Blood Count 16.4 H Red Blood Count 3.62 L Hemoglobin 9.4 L Hematocrit 29.3 L Mean Corpuscular 80.9 L Volume Mean Corpuscular 26.0 L Hemoglobin Mean Corpuscular 32.1 Hemoglobin Concent Red Cell 17.5 H Distribution Width Platelet Count 425 H Mean Platelet Volume 9.9 Immature 7.800 H Granulocytes % Neutrophils % Lymphocytes % Monocytes % Eosinophils % Basophils % Nucleated Red Blood 0.0 Cells % Immature 1.270 H Granulocytes # Neutrophils # Lymphocytes # Monocytes # Eosinophils # Basophils # Nucleated Red Blood Cells # Sodium Level 131 L Potassium Level 3.7 Chloride Level 104 Carbon Dioxide Level 20 L Anion Gap 7 Blood Urea Nitrogen 7 Creatinine 1.02 H Glucose Level 93 Calcium Level 9.7 Phosphorus Level 3.0 Magnesium Level 1.7 Albumin 2.6 L Exam/Review of Systems Exam Vitals Vital Signs Date Temp Pulse Resp B/P (MAP) Pulse Ox O2 O2 Flow FiO2 Time Delivery Rate 05/04/19 98.5 90 20 150/67 97 02:00 (94) 05/01/19 Room Air 07:47 Intake and Output 05/03/19 05/03/19 05/04/19 1515:00 23:00 07:00 IntakeIntake Total 1240 ml 1100 ml OutputOutput Total 3 ml BalanceBalance 1237 ml 1100 ml Results Results 24hrs Laboratory Tests Test 05/03/19 12:18 05/03/19 16:53 05/03/19 21:03 05/04/19 01:04 Bedside Glucose 128 91 97 91 Test 05/04/19 05:02 05/04/19 05:19 05/04/19 08:13 Bedside Glucose 90 95 White Blood Count 16.4 H Red Blood Count 3.62 L Hemoglobin 9.4 L Hematocrit 29.3 L Mean Corpuscular 80.9 L Volume Mean Corpuscular 26.0 L Hemoglobin Mean Corpuscular 32.1 Hemoglobin Concent Red Cell 17.5 H Distribution Width Platelet Count 425 H Mean Platelet Volume 9.9 Immature 7.800 H Granulocytes % Neutrophils % Lymphocytes % Monocytes % Eosinophils % Basophils % Nucleated Red Blood 0.0 Cells % Immature 1.270 H Granulocytes # Neutrophils # Lymphocytes # Monocytes # Eosinophils # Basophils # Nucleated Red Blood Cells # Sodium Level 131 L Potassium Level 3.7 Chloride Level 104 Carbon Dioxide Level 20 L Anion Gap 7 Blood Urea Nitrogen 7 Creatinine 1.02 H Glucose Level 93 Calcium Level 9.7 Phosphorus Level 3.0 Magnesium Level 1.7 Albumin 2.6 L Medications Medication Current Medications Atorvastatin Calcium (Lipitor) 40 mg QHS PO Last administered on 05/03/19 21:04; Admin Dose 40 MG; Start 04/23/19 at 21:00 Clonidine (Catapres) 0.1 mg TID PRN PO ELEVATED BLOOD PRESSURE Last administered on 04/28/19 22:48; Admin Dose 0.1 MG; Start 04/23/19 at 20:00 Escitalopram Oxalate (Lexapro) 10 mg DAILY PO Last administered on 05/04/19 08:17; Admin Dose 10 MG; Start 04/24/19 at 09:00 IV Flush (NS 3 ml) 3 ml PER PROTOCOL IV ; Start 04/23/19 at 20:00 Ondansetron HCl (Zofran Inj) 4 mg Q6H PRN IV NAUSEA/VOMITING Last administered on 05/03/19 19:38; Admin Dose 4 MG; Start 04/23/19 at 20:00 Acetaminophen (Tylenol Tab) 650 mg Q6H PRN PO .PAIN 1-3 OR TEMP Last administered on 05/01/19 09:25; Admin Dose 650 MG; Start 04/23/19 at 20:00 Morphine Sulfate (morphine) 2 mg Q4H PRN IV .SEVERE PAIN 7-10 Last administered on 04/25/19 12:27; Admin Dose 2 MG; Start 04/23/19 at 20:00 Docusate Sodium (Colace) 100 mg Q12H PRN PO .CONSTIPATION; Start 04/23/19 at 20:00 Bisacodyl (Dulcolax) 5 mg DAILY PRN PO .CONSTIPATION; Start 04/23/19 at 20:00 Heparin Sodium (Porcine) (Heparin (5000 Units/1ml)) 5,000 unit Q8 SC Last administered on 05/04/19 05:04; Admin Dose 5,000 UNIT; Start 04/23/19 at 22:00 Lactobacillus Acidophilus (Florajen3 Capsule) 1 each BID PO Last administered on 05/04/19 08:17; Admin Dose 1 EACH; Start 04/23/19 at 21:00 Miscellaneous Information 1 ea NOTE XX ; Start 04/23/19 at 20:30 Glucose (Glutose) 15 gm Q15M PRN PO DECREASED GLUCOSE; Start 04/23/19 at 20:30 Glucose (Glutose) 22.5 gm Q15M PRN PO DECREASED GLUCOSE; Start 04/23/19 at 20:30 Dextrose (D50w Syringe) 25 ml Q15M PRN IV DECREASED GLUCOSE; Start 04/23/19 at 20:30 Dextrose (D50w Syringe) 50 ml Q15M PRN IV DECREASED GLUCOSE; Start 04/23/19 at 20:30 Glucagon (Glucagen) 1 mg Q15M PRN IM DECREASED GLUCOSE; Start 04/23/19 at 20:30 Glucose (Glutose) 15 gm Q15M PRN BUCCAL DECREASED GLUCOSE; Start 04/23/19 at 20:30 Miscellaneous Information ([facility]) This patient munguia... PRN PRN XX WOUND CARE; Start 04/24/19 at 05:00 Nystatin (Nystatin Powder) 1 applic BID TOP Last administered on 05/04/19at 08:18; Admin Dose 1 APPLIC; Start 04/24/19 at 21:00 Amlodipine Besylate (Norvasc) 10 mg DAILY PO Last administered on 05/04/19at 08:17; Admin Dose 10 MG; Start 04/29/19 at 09:00 Hydralazine HCl (Apresoline) 10 mg Q4H PRN IV sbp >160 Last administered on 04/30/19at 20:52; Admin Dose 10 MG; Start 04/28/19 at 11:00 Pantoprazole (Protonix Tab) 40 mg DAILY@06 PO Last administered on 05/03/19at 05:37; Admin Dose 40 MG; Start 04/29/19 at 06:00 Lisinopril (Zestril) 10 mg DAILY PO Last administered on 05/04/19at 08:18; Admin Dose 10 MG; Start 04/29/19 at 09:30 Hyoscyamine (Levsin (Sl)) 0.125 mg Q4H PRN SL ab cramping; Start 04/29/19 at 12:30 Loperamide HCl (Imodium Cap) 2 mg BID PRN PO DIARRHEA; Start 04/29/19 at 12:30 Polyethylene Glycol (Miralax) 17 gm DAILY PRN PO constipation; Start 05/01/19 at 17:00 Metoclopramide HCl (Reglan) 5 mg Q6 IV Last administered on 05/04/19at 05:03; Admin Dose 5 MG; Start 05/01/19 at 18:00 Sodium Chloride 1,000 ml @ 100 mls/hr Q10H IV Last administered on 05/04/19at 05:07; Admin Dose 100 MLS/HR; Start 05/03/19 at 09:30 Insulin Aspart (Novolog Insulin Pen) NOVOLOG *MILD* ALGORI... Q4 SC ; Start 05/04/19 at 01:00 BALTA HENDERSON May 04, 2019 08:39
[2019-05-04 14:00] VITALS: BP 146/65; PULSE 85; RESP 19
--- NOTE | 2019-05-04 14:30 | CONS ---
Assessment/Plan Assessment/Plan Hospital Course (Demo Recall) All noted, no acute events, looks comfortable Urine culture on April 17 grew Klebsiella pneumoniae and E. coli both susceptible to cefotaxime and Ancef also tobramycin Antimicrobials: none Physical examination: Obese well-developed elderly woman who is awake in no distress. Head atraumatic normocephalic sclera nonicteric vehicle mucosa dry neck is obese chest rise symmetrical breath sounds diminished bases heart S1-S2 abdomen soft bowel sounds present extremities without cyanosis Assessment: 1. Persistent leukocytosis 1. Status post UTI 2. Morbid obesity 3. Diabetes 4. Hypertension 5. Diarrhea, C. difficile negative 6. Persistent nausea Plan: Clinically stable, gastroenterology recommendations noted, repeat blood cultures negative, awaiting for urine culture. Patient may need WBC labeled nuclear scan Consultation Date/Type/Reason Admit Date/Time Apr 23, 2019 at 18:26 Initial Consult Date Type of Consult id Date/Time of Note DATE: 05/04/19 TIME: 14:29 Exam/Review of Systems Exam Vitals Vital Signs Date Temp Pulse Resp B/P (MAP) Pulse Ox O2 O2 Flow FiO2 Time Delivery Rate 05/04/19 98.6 84 20 168/72 99 Room Air 08:00 (104) Intake and Output 05/03/19 05/03/19 05/04/19 1515:00 23:00 07:00 IntakeIntake Total 1240 ml 1100 ml OutputOutput Total 3 ml BalanceBalance 1237 ml 1100 ml Results Result Diagram: 05/04/1919 05/04/19 0519 Results 24hrs Laboratory Tests Test 05/03/19 16:53 05/03/19 21:03 05/04/19 01:04 05/04/19 05:02 Bedside Glucose 91 97 91 90 Test 05/04/19 05:19 05/04/19 08:13 05/04/19 12:02 White Blood Count 16.4 H Red Blood Count 3.62 L Hemoglobin 9.4 L Hematocrit 29.3 L Mean Corpuscular 80.9 L Volume Mean Corpuscular 26.0 L Hemoglobin Mean Corpuscular 32.1 Hemoglobin Concent Red Cell 17.5 H Distribution Width Platelet Count 425 H Mean Platelet Volume 9.9 Immature 7.800 H Granulocytes % Neutrophils % Segmented 74 Neutrophils % (Manual) Band Neutrophils % 3 (Manual) Lymphocytes % Lymphocytes % 18 (Manual) Monocytes % Monocytes % (Manual) 5 Eosinophils % Basophils % Nucleated Red Blood 0.0 Cells % Immature 1.270 H Granulocytes # Neutrophils # Neutrophils # 12.2 H (Manual) Band Neutrophils # 0.4 Lymphocytes (Manual) 2.9 Lymphocytes # Monocytes # Monocytes # (Manual) 0.8 Eosinophils # Basophils # Nucleated Red Blood Cells # Platelet Estimate NORMAL Giant Platelets 4 H Polychromasia 3+ Hypochromasia 1+ Poikilocytosis 2+ Anisocytosis 2+ Microcytosis 1+ Macrocytosis 1+ Sodium Level 131 L Potassium Level 3.7 Chloride Level 104 Carbon Dioxide Level 20 L Anion Gap 7 Blood Urea Nitrogen 7 Creatinine 1.02 H Glucose Level 93 Calcium Level 9.7 Phosphorus Level 3.0 Magnesium Level 1.7 Albumin 2.6 L Bedside Glucose 95 118 Medications Medication Current Medications Atorvastatin Calcium (Lipitor) 40 mg QHS PO Last administered on 05/03/19 21 :04; Admin Dose 40 MG; Start 04/23/19 at 21:00 Clonidine (Catapres) 0.1 mg TID PRN PO ELEVATED BLOOD PRESSURE Last administered on 04/28/19 22:48; Admin Dose 0.1 MG; Start 04/23/19 at 20:00 Escitalopram Oxalate (Lexapro) 10 mg DAILY PO Last administered on 05/04/19 08:17; Admin Dose 10 MG; Start 04/24/19 at 09:00 IV Flush (NS 3 ml) 3 ml PER PROTOCOL IV ; Start 04/23/19 at 20:00 Ondansetron HCl (Zofran Inj) 4 mg Q6H PRN IV NAUSEA/VOMITING Last administered on 05/03/19at 19:38; Admin Dose 4 MG; Start 04/23/19 at 20:00 Acetaminophen (Tylenol Tab) 650 mg Q6H PRN PO .PAIN 1-3 OR TEMP Last admi nistered on 05/01/19 09:25; Admin Dose 650 MG; Start 04/23/19 at 20:00 Morphine Sulfate (morphine) 2 mg Q4H PRN IV .SEVERE PAIN 7-10 Last administered on 04/25/19 12:27; Admin Dose 2 MG; Start 04/23/19 at 20:00 Docusate Sodium (Colace) 100 mg Q12H PRN PO .CONSTIPATION; Start 04/23/19 at 20:00 Bisacodyl (Dulcolax) 5 mg DAILY PRN PO .CONSTIPATION; Start 04/23/19 at 20:00 Heparin Sodium (Porcine) (Heparin (5000 Units/1ml)) 5,000 unit Q8 SC Last administered on 05/04/19at 13:41; Admin Dose 5,000 UNIT; Start 04/23/19 at 22:00 Lactobacillus Acidophilus (Florajen3 Capsule) 1 each BID PO Last administered on 05/04/19at 08:17; Admin Dose 1 EACH; Start 04/23/19 at 21:00 Miscellaneous Information 1 ea NOTE XX ; Start 04/23/19 at 20:30 Glucose (Glutose) 15 gm Q15M PRN PO DECREASED GLUCOSE; Start 04/23/19 at 20:30 Glucose (Glutose) 22.5 gm Q15M PRN PO DECREASED GLUCOSE; Start 04/23/19 at 20:3 0 Dextrose (D50w Syringe) 25 ml Q15M PRN IV DECREASED GLUCOSE; Start 04/23/19 at 20:30 Dextrose (D50w Syringe) 50 ml Q15M PRN IV DECREASED GLUCOSE; Start 04/23/19 at 20:30 Glucagon (Glucagen) 1 mg Q15M PRN IM DECREASED GLUCOSE; Start 04/23/19 at 20:30 Glucose (Glutose) 15 gm Q15M PRN BUCCAL DECREASED GLUCOSE; Start 04/23/19 at 20:30 Miscellaneous Information (Pending [facility] Order For Wound Care) This patient munguia... PRN PRN XX WOUND CARE; Start 04/24/19 at 05:00 Nystatin (Nystatin Powder) 1 applic BID TOP Last administered on 05/04/19at 08:18; Admin Dose 1 APPLIC; Start 04/24/19 at 21:00 Amlodipine Besylate (Norvasc) 10 mg DAILY PO Last administered on 05/04/19at 08:17; Admin Dose 10 MG; Start 04/29/19 at 09:00 Hydralazine HCl (Apresoline) 10 mg Q4H PRN IV sbp >160 Last administered on 04/30/19at 20:52; Admin Dose 10 MG; Start 04/28/19 at 11:00 Pantoprazole (Protonix Tab) 40 mg DAILY@06 PO Last administered on 05/03/19at 05:37; Admin Dose 40 MG; Start 04/29/19 at 06:00 Lisinopril (Zestril) 10 mg DAILY PO Last administered on 05/04/19at 08:18; Admin Dose 10 MG; Start 04/29/19 at 09:30 Hyoscyamine (Levsin (Sl)) 0.125 mg Q4H PRN SL ab cramping; Start 04/29/19 at 12:30 Loperamide HCl (Imodium Cap) 2 mg BID PRN PO DIARRHEA; Start 04/29/19 at 12:30 Polyethylene Glycol (Miralax) 17 gm DAILY PRN PO constipation; Start 05/01/19 at 17:00 Metoclopramide HCl (Reglan) 5 mg Q6 IV Last administered on 05/04/19at 12:03; Admin Dose 5 MG; Start 05/01/19 at 18:00 Sodium Chloride 1,000 ml @ 100 mls/hr Q10H IV Last administered on 05/04/19at 05:07; Admin Dose 100 MLS/HR; Start 05/03/19 at 09:30 Diagnostic Test (Pha) (Accu-Chek) 1 ea 02 XX ; Start 05/05/19 at 02:00 Insulin Aspart (Novolog Insulin Pen) NOVOLOG *MILD* ALGORITHM WITH MEALS BEDTIME SC ; Start 05/04/19 at 12:00 ANA MARIA ZULETA NP May 04, 2019 14:30
--- NOTE | 2019-05-04 16:56 | PN ---
Date/Time of Note Date/Time of Note DATE: 05/04/19 TIME: 16:52 Assessment/Plan VTE Prophylaxis Risk score (from Ns)>0 risk: 6 SCD applied (from Ns): Yes Pharmacological prophylaxis: heparin Lines/Catheters IV Catheter Type (from Nrs): Peripheral IV Urinary Cath still in place: No Assessment/Plan Assessment/Plan 1. Nausea and vomiting, Acute on chronic - GI on board and appreciate recommendations. gastric emptying study negative. - may need PEG placement given poor PO intake and continues vomiting anything solid she eats as well as boost - Continue PPI, Levsin, and Carafate - Encouraged PO intake and ambulation 2. Urinary tract infection - ID on board and Will monitor off antibiotics 3. Diarrhea - continue probiotics - stool studies noted 4. Hypertension - continue home medications - adjust as needed for better control 5. Diabetes mellitus - ISS and accuchecks 6. History of urinary tract infection - Patient has a history of multidrug-resistant UTIs 7. Disposition - Will touch base with Gi regarding PEG placement given normal gastric emptying study and still persists with nausea and vomiting with PO intake Result Diagram: 05/04/1951805/04/19518 Results 24hrs Laboratory Tests Test 05/03/19 16:53 05/03/19 21:03 05/04/19 01:04 05/04/19 05:02 Bedside Glucose 91 97 91 90 Test 05/04/19 05:19 05/04/19 08:13 05/04/19 12:02 White Blood Count 16.4 H Red Blood Count 3.62 L Hemoglobin 9.4 L Hematocrit 29.3 L Mean Corpuscular 80.9 L Volume Mean Corpuscular 26.0 L Hemoglobin Mean Corpuscular 32.1 Hemoglobin Concent Red Cell 17.5 H Distribution Width Platelet Count 425 H Mean Platelet Volume 9.9 Immature 7.800 H Granulocytes % Neutrophils % Segmented 74 Neutrophils % (Manual) Band Neutrophils % 3 (Manual) Lymphocytes % Lymphocytes % 18 (Manual) Monocytes % Monocytes % (Manual) 5 Eosinophils % Basophils % Nucleated Red Blood 0.0 Cells % Immature 1.270 H Granulocytes # Neutrophils # Neutrophils # 12.2 H (Manual) Band Neutrophils # 0.4 Lymphocytes (Manual) 2.9 Lymphocytes # Monocytes # Monocytes # (Manual) 0.8 Eosinophils # Basophils # Nucleated Red Blood Cells # Platelet Estimate NORMAL Giant Platelets 4 H Polychromasia 3+ Hypochromasia 1+ Poikilocytosis 2+ Anisocytosis 2+ Microcytosis 1+ Macrocytosis 1+ Sodium Level 131 L Potassium Level 3.7 Chloride Level 104 Carbon Dioxide Level 20 L Anion Gap 7 Blood Urea Nitrogen 7 Creatinine 1.02 H Glucose Level 93 Calcium Level 9.7 Phosphorus Level 3.0 Magnesium Level 1.7 Albumin 2.6 L Bedside Glucose 95 118 Subjective 24 Hr Interval Summary Free Text/Dictation Patient still with one episode of diarrhea last night and still with nausea. She underwent gastric emptying study and discussed with patient and family at bedside she may need PEG tube if still not tolerating PO intake. Exam/Review of Systems Exam Vitals Vital Signs Date Temp Pulse Resp B/P (MAP) Pulse Ox O2 O2 Flow FiO2 Time Delivery Rate 05/04/19 98.4 85 19 146/65 100 Room Air 14:00 (92) Intake and Output 05/03/19 05/03/19 05/04/19 1515:00 23:00 07:00 IntakeIntake Total 1240 ml 1100 ml OutputOutput Total 3 ml BalanceBalance 1237 ml 1100 ml Exam General: Distress secondary to nausea, pale complexion Neck: Supple Respiratory: Clear to auscultation bilaterally. no wheezing or rhonchi Cardiovascular: S1, S2, regular rate and rhythm, no obvious murmurs Gastrointestinal: soft, non-tender to palpation, nondistended, bowel sounds heard. Neurological: Moves all extremities spontaneously Skin: No new skin lesions Results Results 24hrs Laboratory Tests Test 05/03/19 16:53 05/03/19 21:03 05/04/19 01:04 05/04/19 05:02 Bedside Glucose 91 97 91 90 Test 05/04/19 05:19 05/04/19 08:13 05/04/19 12:02 White Blood Count 16.4 H Red Blood Count 3.62 L Hemoglobin 9.4 L Hematocrit 29.3 L Mean Corpuscular 80.9 L Volume Mean Corpuscular 26.0 L Hemoglobin Mean Corpuscular 32.1 Hemoglobin Concent Red Cell 17.5 H Distribution Width Platelet Count 425 H Mean Platelet Volume 9.9 Immature 7.800 H Granulocytes % Neutrophils % Segmented 74 Neutrophils % (Manual) Band Neutrophils % 3 (Manual) Lymphocytes % Lymphocytes % 18 (Manual) Monocytes % Monocytes % (Manual) 5 Eosinophils % Basophils % Nucleated Red Blood 0.0 Cells % Immature 1.270 H Granulocytes # Neutrophils # Neutrophils # 12.2 H (Manual) Band Neutrophils # 0.4 Lymphocytes (Manual) 2.9 Lymphocytes # Monocytes # Monocytes # (Manual) 0.8 Eosinophils # Basophils # Nucleated Red Blood Cells # Platelet Estimate NORMAL Giant Platelets 4 H Polychromasia 3+ Hypochromasia 1+ Poikilocytosis 2+ Anisocytosis 2+ Microcytosis 1+ Macrocytosis 1+ Sodium Level 131 L Potassium Level 3.7 Chloride Level 104 Carbon Dioxide Level 20 L Anion Gap 7 Blood Urea Nitrogen 7 Creatinine 1.02 H Glucose Level 93 Calcium Level 9.7 Phosphorus Level 3.0 Magnesium Level 1.7 Albumin 2.6 L Bedside Glucose 95 118 Medications Medication Current Medications Atorvastatin Calcium (Lipitor) 40 mg QHS PO Last administered on 05/03/19at 21:04; Admin Dose 40 MG; Start 04/23/19 at 21:00 Clonidine (Catapres) 0.1 mg TID PRN PO ELEVATED BLOOD PRESSURE Last administered on 04/28/19at 22:48; Admin Dose 0.1 MG; Start 04/23/19 at 20:00 Escitalopram Oxalate (Lexapro) 10 mg DAILY PO Last administered on 05/04/19at 08:17; Admin Dose 10 MG; Start 04/24/19 at 09:00 IV Flush (NS 3 ml) 3 ml PER PROTOCOL IV ; Start 04/23/19 at 20:00 Ondansetron HCl (Zofran Inj) 4 mg Q6H PRN IV NAUSEA/VOMITING Last administered on 05/03/19at 19:38; Admin Dose 4 MG; Start 04/23/19 at 20:00 Acetaminophen (Tylenol Tab) 650 mg Q6H PRN PO .PAIN 1-3 OR TEMP Last administered on 05/01/19at 09:25; Admin Dose 650 MG; Start 04/23/19 at 20:00 Morphine Sulfate (morphine) 2 mg Q4H PRN IV .SEVERE PAIN 7-10 Last administered on 04/25/19at 12:27; Admin Dose 2 MG; Start 04/23/19 at 20:00 Docusate Sodium (Colace) 100 mg Q12H PRN PO .CONSTIPATION; Start 04/23/19 at 20:00 Bisacodyl (Dulcolax) 5 mg DAILY PRN PO .CONSTIPATION; Start 04/23/19 at 20:00 Heparin Sodium (Porcine) (Heparin (5000 Units/1ml)) 5,000 unit Q8 SC Last administered on 05/04/19at 13:41; Admin Dose 5,000 UNIT; Start 04/23/19 at 22:00 Lactobacillus Acidophilus (Florajen3 Capsule) 1 each BID PO Last administered on 05/04/19at 08:17; Admin Dose 1 EACH; Start 04/23/19 at 21:00 Miscellaneous Information 1 ea NOTE XX ; Start 04/23/19 at 20:30 Glucose (Glutose) 15 gm Q15M PRN PO DECREASED GLUCOSE; Start 04/23/19 at 20:30 Glucose (Glutose) 22.5 gm Q15M PRN PO DECREASED GLUCOSE; Start 04/23/19 at 20:30 Dextrose (D50w Syringe) 25 ml Q15M PRN IV DECREASED GLUCOSE; Start 04/23/19 at 20:30 Dextrose (D50w Syringe) 50 ml Q15M PRN IV DECREASED GLUCOSE; Start 04/23/19 at 20:30 Glucagon (Glucagen) 1 mg Q15M PRN IM DECREASED GLUCOSE; Start 04/23/19 at 20:30 Glucose (Glutose) 15 gm Q15M PRN BUCCAL DECREASED GLUCOSE; Start 04/23/19 at 20:30 Miscellaneous Information (Pending [facility] Order For Wound Care) This patient munguia... PRN PRN XX WOUND CARE; Start 04/24/19 at 05:00 Nystatin (Nystatin Powder) 1 applic BID TOP Last administered on 05/04/19at 08:18; Admin Dose 1 APPLIC; Start 04/24/19 at 21:00 Amlodipine Besylate (Norvasc) 10 mg DAILY PO Last administered on 05/04/19at 08:17; Admin Dose 10 MG; Start 04/29/19 at 09:00 Hydralazine HCl (Apresoline) 10 mg Q4H PRN IV sbp >160 Last administered on 04/30/19at 20:52; Admin Dose 10 MG; Start 04/28/19 at 11:00 Pantoprazole (Protonix Tab) 40 mg DAILY@06 PO Last administered on 05/03/19at 05:37; Admin Dose 40 MG; Start 04/29/19 at 06:00 Lisinopril (Zestril) 10 mg DAILY PO Last administered on 05/04/19at 08:18; Admin Dose 10 MG; Start 04/29/19 at 09:30 Hyoscyamine (Levsin (Sl)) 0.125 mg Q4H PRN SL ab cramping; Start 04/29/19 at 12:30 Loperamide HCl (Imodium Cap) 2 mg BID PRN PO DIARRHEA; Start 04/29/19 at 12:30 Polyethylene Glycol (Miralax) 17 gm DAILY PRN PO constipation; Start 05/01/19 at 17:00 Metoclopramide HCl (Reglan) 5 mg Q6 IV Last administered on 05/04/19at 12:03; Admin Dose 5 MG; Start 05/01/19 at 18:00 Sodium Chloride 1,000 ml @ 100 mls/hr Q10H IV Last administered on 05/04/19at 15:39; Admin Dose 100 MLS/HR; Start 05/03/19 at 09:30 Diagnostic Test (Pha) (Accu-Chek) 1 ea 02 XX ; Start 05/05/19 at 02:00 Insulin Aspart (Novolog Insulin Pen) NOVOLOG *MILD* ALGORITHM WITH MEALS BEDTI [facility] [place] ; Start 05/04/19 at 12:00 KAREN GARNER MD May 04, 2019 16:56
[2019-05-04] MEDS: ACETAMINOPHEN 325 MG TAB PO PRN (19:51)
[2019-05-04 20:00] VITALS: BP 136/61; PULSE 82; RESP 18
[2019-05-04] MEDS: ATORVASTATIN 40 MG TAB PO SCH (20:52)
[2019-05-05] MEDS: METOCLOPRAMIDE 10 MG INJ IV SCH ×4 (00:07→18:06)
[2019-05-05] MEDS: SOD CHLORIDE 0.9% 1,000 ML IV SCH ×3 (01:06→20:58)
[2019-05-05 02:00] VITALS: BP 140/60; PULSE 82; RESP 18
[2019-05-05] MEDS: ACCU-CHEK XX SCH (02:00)
[2019-05-05] MEDS: PANTOPRAZOLE (EC) 40 MG TAB PO SCH (06:40)
[2019-05-05] MEDS: HEPARIN 5,000 UNIT/1 ML VIAL SC SCH ×3 (06:42→22:38)
[2019-05-05] MEDS: INSULIN ASPART [NOVOLOG] 3 ML PEN SC SCH ×4 (07:38→20:57)
[2019-05-05 08:00] VITALS: BP 138/63; PULSE 81; RESP 19
[2019-05-05] MEDS: ESCITALOPRAM 10 MG TAB PO SCH (08:48)
[2019-05-05] MEDS: AMLODIPINE 10 MG TAB PO SCH (08:48)
[2019-05-05] MEDS: NYSTATIN 30 GM POWDER BTL TOP SCH ×2 (08:49→20:51)
[2019-05-05] MEDS: L ACIDOPHIL/B LACTIS/B LONGUM CAPSULE PO SCH ×2 (08:49→20:51)
[2019-05-05] MEDS: LISINOPRIL 10 MG TAB PO SCH (08:49)
[2019-05-05] MEDS ORDERED: POTASSIUM CHLORIDE 100 ML IVPB SCH (09:30)
[2019-05-05] MEDS ORDERED: MAGNESIUM SULFATE 3 GM in DEXTROSE 5% 100 ML IVPB ONE (10:00)
[2019-05-05] MEDS: morphine 2 MG INJ IV PRN (11:58)
[2019-05-05] MEDS ORDERED: POTASSIUM CHLORIDE (SR) 20 MEQ TAB PO STA (12:04)
--- NOTE | 2019-05-05 12:11 | PN ---
Date/Time of Note Date/Time of Note DATE: 05/05/19 TIME: 12:04 Assessment/Plan VTE Prophylaxis Risk score (from Ns)>0 risk: 7 SCD applied (from Ns): Yes Pharmacological prophylaxis: heparin Lines/Catheters IV Catheter Type (from Nrsg): Peripheral IV Urinary Cath still in place: No Assessment/Plan Assessment/Plan 1. Nausea and vomiting, Acute on chronic - Gi on board and appreciate recommendations. Gastric emptying study was normal - may need PEG placement given poor PO intake and continues vomiting anything solid she eats as well as boost - Continue PPI, Levsin, and Carafate - Encouraged PO intake and ambulation 2. Urinary tract infection- resolved - ID on board and Will monitor off antibiotics 3. Diarrhea- improving - continue probiotics - stool studies noted 4. Skin tear - wound care to area - pain control 5. Diabetes mellitus - ISS and accuchecks 6. History of urinary tract infection - Patient has a history of multidrug-resistant UTIs 7. Hypertension - continue home medications - adjust as needed for better control 8. Disposition - May need PEG placement since patient still not able to tolerate PO intake without N/V. Result Diagram: 05/05/198 05/05/19 0428 Results 24hrs Laboratory Tests Test 05/04/19 17:38 05/04/19 20:51 05/05/19 04:28 05/05/19 07:38 Bedside Glucose 95 97 87 White Blood Count 15.9 H Red Blood Count 3.74 L Hemoglobin 9.6 L Hematocrit 30.7 L Mean Corpuscular 82.1 Volume Mean Corpuscular 25.7 L Hemoglobin Mean Corpuscular 31.3 L Hemoglobin Concent Red Cell 17.7 H Distribution Width Platelet Count 444 H Mean Platelet Volume 10.4 Immature 7.600 H Granulocytes % Neutrophils % Segmented 52 Neutrophils % (Manual) Band Neutrophils % 2 (Manual) Lymphocytes % Lymphocytes % 18 (Manual) Monocytes % Monocytes % (Manual) 7 Eosinophils % Eosinophils % 15 H (Manual) Basophils % Metamyelocytes % 2 H (manual) Myelocytes % 4 H (Manual) Nucleated Red Blood 0.0 Cells % Immature 1.200 H Granulocytes # Neutrophils # Neutrophils # 8.3 H (Manual) Band Neutrophils # 0.3 Lymphocytes (Manual) 2.8 Lymphocytes # Monocytes # Monocytes # (Manual) 1.1 H Eosinophils # Basophils # Metamyelocytes # 0.3 H Myelocytes # 0.6 H Nucleated Red Blood Cells # Platelet Estimate NORMAL Giant Platelets 1 H Poikilocytosis 1+ Anisocytosis 1+ Sodium Level 134 L Potassium Level 3.5 Chloride Level 107 Carbon Dioxide Level 19 L Anion Gap 8 Blood Urea Nitrogen 5 L Creatinine 0.91 Glucose Level 78 Calcium Level 9.9 Phosphorus Level 3.1 Magnesium Level 1.5 L Albumin 2.6 L Subjective 24 Hr Interval Summary Free Text/Dictation Patient is currently crying after developed a small hip skin tear following PT. Also complaining of burning from IV KCl. Exam/Review of Systems Exam Vitals Vital Signs Date Temp Pulse Resp B/P (MAP) Pulse Ox O2 O2 Flow FiO2 Time Delivery Rate 05/05/19 98.1 81 19 138/63 96 Room Air 08:00 (88) Intake and Output 05/04/19 05/04/19 05/05/19 1515:00 23:00 07:00 IntakeIntake Total 1170 ml 1830 ml OutputOutput Total 600 ml 900 ml BalanceBalance 570 ml 930 ml Exam General: Distress secondary to pain, pale complexion Neck: Supple Respiratory: Clear to auscultation bilaterally. no wheezing or rhonchi Cardiovascular: S1, S2, regular rate and rhythm, no obvious murmurs Gastrointestinal: soft, non-tender to palpation, nondistended, bowel sounds heard. Neurological: Moves all extremities spontaneously Skin: No new skin lesions Results Results 24hrs Laboratory Tests Test 05/04/19 17:38 05/04/19 20:51 05/05/19 04:28 05/05/19 07:38 Bedside Glucose 95 97 87 White Blood Count 15.9 H Red Blood Count 3.74 L Hemoglobin 9.6 L Hematocrit 30.7 L Mean Corpuscular 82.1 Volume Mean Corpuscular 25.7 L Hemoglobin Mean Corpuscular 31.3 L Hemoglobin Concent Red Cell 17.7 H Distribution Width Platelet Count 444 H Mean Platelet Volume 10.4 Immature 7.600 H Granulocytes % Neutrophils % Segmented 52 Neutrophils % (Manual) Band Neutrophils % 2 (Manual) Lymphocytes % Lymphocytes % 18 (Manual) Monocytes % Monocytes % (Manual) 7 Eosinophils % Eosinophils % 15 H (Manual) Basophils % Metamyelocytes % 2 H (manual) Myelocytes % 4 H (Manual) Nucleated Red Blood 0.0 Cells % Immature 1.200 H Granulocytes # Neutrophils # Neutrophils # 8.3 H (Manual) Band Neutrophils # 0.3 Lymphocytes (Manual) 2.8 Lymphocytes # Monocytes # Monocytes # (Manual) 1.1 H Eosinophils # Basophils # Metamyelocytes # 0.3 H Myelocytes # 0.6 H Nucleated Red Blood Cells # Platelet Estimate NORMAL Giant Platelets 1 H Poikilocytosis 1+ Anisocytosis 1+ Sodium Level 134 L Potassium Level 3.5 Chloride Level 107 Carbon Dioxide Level 19 L Anion Gap 8 Blood Urea Nitrogen 5 L Creatinine 0.91 Glucose Level 78 Calcium Level 9.9 Phosphorus Level 3.1 Magnesium Level 1.5 L Albumin 2.6 L Medications Medication Current Medications Atorvastatin Calcium (Lipitor) 40 mg QHS PO Last administered on 05/04/19 20:52; Admin Dose 40 MG; Start 04/23/19 at 21:00 Clonidine (Catapres) 0.1 mg TID PRN PO ELEVATED BLOOD PRESSURE Last administered on 04/28/19 22:48; Admin Dose 0.1 MG; Start 04/23/19 at 20:00 Escitalopram Oxalate (Lexapro) 10 mg DAILY PO Last administered on 05/05/19 08:48; Admin Dose 10 MG; Start 04/24/19 at 09:00 IV Flush (NS 3 ml) 3 ml PER PROTOCOL IV ; Start 04/23/19 at 20:00 Ondansetron HCl (Zofran Inj) 4 mg Q6H PRN IV NAUSEA/VOMITING Last administered on 05/03/19 19:38; Admin Dose 4 MG; Start 04/23/19 at 20:00 Acetaminophen (Tylenol Tab) 650 mg Q6H PRN PO .PAIN 1-3 OR TEMP Last administered on 05/04/19 19:51; Admin Dose 650 MG; Start 04/23/19 at 20:00 Morphine Sulfate (morphine) 2 mg Q4H PRN IV .SEVERE PAIN 7-10 Last administered on 05/05/19 11:58; Admin Dose 2 MG; Start 04/23/19 at 20:00 Docusate Sodium (Colace) 100 mg Q12H PRN PO .CONSTIPATION; Start 04/23/19 at 20:00 Bisacodyl (Dulcolax) 5 mg DAILY PRN PO .CONSTIPATION; Start 04/23/19 at 20:00 Heparin Sodium (Porcine) (Heparin (5000 Units/1ml)) 5,000 unit Q8 SC Last administered on 05/05/19 06:42; Admin Dose 5,000 UNIT; Start 04/23/19 at 22:00 Lactobacillus Acidophilus (Florajen3 Capsule) 1 each BID PO Last administered on 05/05/19 08:49; Admin Dose 1 EACH; Start 04/23/19 at 21:00 Miscellaneous Information 1 ea NOTE XX ; Start 04/23/19 at 20:30 Glucose (Glutose) 15 gm Q15M PRN PO DECREASED GLUCOSE; Start 04/23/19 at 20:30 Glucose (Glutose) 22.5 gm Q15M PRN PO DECREASED GLUCOSE; Start 04/23/19 at 20:30 Dextrose (D50w Syringe) 25 ml Q15M PRN IV DECREASED GLUCOSE; Start 04/23/19 at 20:30 Dextrose (D50w Syringe) 50 ml Q15M PRN IV DECREASED GLUCOSE; Start 04/23/19 at 20:30 Glucagon (Glucagen) 1 mg Q15M PRN IM DECREASED GLUCOSE; Start 04/23/19 at 20:30 Glucose (Glutose) 15 gm Q15M PRN BUCCAL DECREASED GLUCOSE; Start 04/23/19 at 20:30 Miscellaneous Information (Pending [facility] Order For Wound Care) This patient munguia... PRN PRN XX WOUND CARE; Start 04/24/19 at 05:00 Nystatin (Nystatin Powder) 1 applic BID TOP Last administered on 05/05/19 08:49; Admin Dose 1 APPLIC; Start 04/24/19 at 21:00 Amlodipine Besylate (Norvasc) 10 mg DAILY PO Last administered on 05/05/19 08:48; Admin Dose 10 MG; Start 04/29/19 at 09:00 Hydralazine HCl (Apresoline) 10 mg Q4H PRN IV sbp >160 Last administered on 04/30/19 20:52; Admin Dose 10 MG; Start 04/28/19 at 11:00 Pantoprazole (Protonix Tab) 40 mg DAILY@06 PO Last administered on 05/05/19at 06:40; Admin Dose 40 MG; Start 04/29/19 at 06:00 Lisinopril (Zestril) 10 mg DAILY PO Last administered on 6/28/19at 08:49; Admin Dose 10 MG; Start 04/29/19 at 09:30 Hyoscyamine (Levsin (Sl)) 0.125 mg Q4H PRN SL ab cramping; Start 04/29/19 at 1 2:30 Loperamide HCl (Imodium Cap) 2 mg BID PRN PO DIARRHEA; Start 04/29/19 at 12:30 Polyethylene Glycol (Miralax) 17 gm DAILY PRN PO constipation; Start 05/01/19 at 17:00 Metoclopramide HCl (Reglan) 5 mg Q6 IV Last administered on 05/05/19at 06:40; Admin Dose 5 MG; Start 05/01/19 at 18:00 Sodium Chloride 1,000 ml @ 100 mls/hr Q10H IV Last administered on 05/05/19at 09:48; Admin Dose 100 MLS/HR; Start 05/03/19 at 09:30 Diagnostic Test (Pha) (Accu-Chek) 1 ea 02 XX ; Start 05/05/19 at 02:00 Insulin Aspart (Novolog Insulin Pen) NOVOLOG *MILD* ALGORITHM WITH MEALS BEDTIME SC ; Start 05/04/19 at 12:00 Potassium Chloride 100 ml @ 50 mls/hr Q2H IVPB Last administered on 05/05/19at 09:46; Admin Dose 50 MLS/HR; Start 05/05/19 at 09:30; Stop 05/05/19 at 13:29 Magnesium Sulfate 3 gm/Dextrose 106 ml @ 35.333 mls/ hr ONCE ONCE IVPB ; Start 05/05/19 at 10:00; Stop 05/05/19 at 12:59 KAREN GARNER MD May 05, 2019 12:11
[2019-05-05 14:00] VITALS: BP 133/65; PULSE 80; RESP 17
--- NOTE | 2019-05-05 14:21 | PN ---
Date/Time of Note Date/Time of Note DATE: 05/05/19 TIME: 14:05 Assessment/Plan VTE Prophylaxis Risk score (from Ns)>0 risk: 7 SCD applied (from Ns): Yes Pharmacological prophylaxis: heparin Lines/Catheters IV [facility] (from [facility]): Peripheral IV Urinary Cath still in place: No Assessment/Plan Assessment/Plan Assessment: Nausea/vomiting- unclear etiology EGD 04/28/2019 Moderate distal esophagitis. Moderate gastritis. Rule out internal infection. Biopsies obtained. Evidence of previous gastrostomy tube site well-healed. Otherwise normal EGD. Gastric biopsies-negative for H. pylori organisms, no dysplasia or intestinal metaplasia is identified, patchy minimal chronic inflammation Diarrhea- possibly 2/2 to antibiotics - resolved Colonoscopy 04/28/2019 3 mm sessile polyp in the ascending colon, ablated. Moderate diverticulosis of the colon. Moderate-sized internal and large external hemorrhoids. Otherwise normal colonoscopy Ascending colon polyp, biopsy: tubular adenoma -Stool studies COLIFORM, ELYSSA ALBICANS -CDIFF- Negative -O&P- Negative Normocytic anemia Abdominal cramping- improved UTI -ID following DM Dyslipidemia HTN Leukocytosis Plan: Start scopolamine patch Gastric emptying study -normal Repeat colonoscopy in 5 years Levsin/Continue PPI Probiotics Patient seen in collaboration with Dr. Vasquez Subjective: Course reviewed with nursing staff Patient interviewed and examined All labs, imaging and other results reviewed Patient is complaining of right lower quadrant pain at the site of the dressing. Complaining of persistent nausea that has slightly improved. Patient is unable to eat well. Will order scopolamine patch to improve nausea that precluding patient from eating. Gastric emptying study is normal. No diarrhea today. We will continue monitoring. PEG would be last option. Result Diagram: 05/05/19 0428 05/05/19 0428 Results 24hrs Laboratory Tests Test 05/04/19 17:38 05/04/19 20:51 05/05/19 04:28 05/05/19 07:38 Bedside Glucose 95 97 87 White Blood Count 15.9 H Red Blood Count 3.74 L Hemoglobin 9.6 L Hematocrit 30.7 L Mean Corpuscular 82.1 Volume Mean Corpuscular 25.7 L Hemoglobin Mean Corpuscular 31.3 L Hemoglobin Concent Red Cell 17.7 H Distribution Width Platelet Count 444 H Mean Platelet Volume 10.4 Immature 7.600 H Granulocytes % Neutrophils % Segmented 52 Neutrophils % (Manual) Band Neutrophils % 2 (Manual) Lymphocytes % Lymphocytes % 18 (Manual) Monocytes % Monocytes % (Manual) 7 Eosinophils % Eosinophils % 15 H (Manual) Basophils % Metamyelocytes % 2 H (manual) Myelocytes % 4 H (Manual) Nucleated Red Blood 0.0 Cells % Immature 1.200 H Granulocytes # Neutrophils # Neutrophils # 8.3 H (Manual) Band Neutrophils # 0.3 Lymphocytes (Manual) 2.8 Lymphocytes # Monocytes # Monocytes # (Manual) 1.1 H Eosinophils # Basophils # Metamyelocytes # 0.3 H Myelocytes # 0.6 H Nucleated Red Blood Cells # Platelet Estimate NORMAL Giant Platelets 1 H Poikilocytosis 1+ Anisocytosis 1+ Sodium Level 134 L Potassium Level 3.5 Chloride Level 107 Carbon Dioxide Level 19 L Anion Gap 8 Blood Urea Nitrogen 5 L Creatinine 0.91 Glucose Level 78 Calcium Level 9.9 Phosphorus Level 3.1 Magnesium Level 1.5 L Albumin 2.6 L Test 05/05/19 12:04 Bedside Glucose 89 CC: CESARIO VASQUEZ MD ; Exam/Review of Systems Exam Vitals Vital Signs Date Temp Pulse Resp B/P (MAP) Pulse Ox O2 O2 Flow FiO2 Time Delivery Rate 05/05/19 98.1 81 19 138/63 96 Room Air 08:00 (88) Intake and Output 05/04/19 05/04/19 05/05/19 1515:00 23:00 07:00 IntakeIntake Total 1170 ml 1830 ml OutputOutput Total 600 ml 900 ml BalanceBalance 570 ml 930 ml Results Results 24hrs Laboratory Tests Test 05/04/19 17:38 05/04/19 20:51 05/05/19 04:28 05/05/19 07:38 Bedside Glucose 95 97 87 White Blood Count 15.9 H Red Blood Count 3.74 L Hemoglobin 9.6 L Hematocrit 30.7 L Mean Corpuscular 82.1 Volume Mean Corpuscular 25.7 L Hemoglobin Mean Corpuscular 31.3 L Hemoglobin Concent Red Cell 17.7 H Distribution Width Platelet Count 444 H Mean Platelet Volume 10.4 Immature 7.600 H Granulocytes % Neutrophils % Segmented 52 Neutrophils % (Manual) Band Neutrophils % 2 (Manual) Lymphocytes % Lymphocytes % 18 (Manual) Monocytes % Monocytes % (Manual) 7 Eosinophils % Eosinophils % 15 H (Manual) Basophils % Metamyelocytes % 2 H (manual) Myelocytes % 4 H (Manual) Nucleated Red Blood 0.0 Cells % Immature 1.200 H Granulocytes # Neutrophils # Neutrophils # 8.3 H (Manual) Band Neutrophils # 0.3 Lymphocytes (Manual) 2.8 Lymphocytes # Monocytes # Monocytes # (Manual) 1.1 H Eosinophils # Basophils # Metamyelocytes # 0.3 H Myelocytes # 0.6 H Nucleated Red Blood Cells # Platelet Estimate NORMAL Giant Platelets 1 H Poikilocytosis 1+ Anisocytosis 1+ Sodium Level 134 L Potassium Level 3.5 Chloride Level 107 Carbon Dioxide Level 19 L Anion Gap 8 Blood Urea Nitrogen 5 L Creatinine 0.91 Glucose Level 78 Calcium Level 9.9 Phosphorus Level 3.1 Magnesium Level 1.5 L Albumin 2.6 L Test 05/05/19 12:04 Bedside Glucose 89 Medications Medication Current Medications Atorvastatin Calcium (Lipitor) 40 mg QHS PO Last administered on 05/04/19 20:52; Admin Dose 40 MG; Start 04/23/19 at 21:00 Clonidine (Catapres) 0.1 mg TID PRN PO ELEVATED BLOOD PRESSURE Last administered on 04/28/19 22:48; Admin Dose 0.1 MG; Start 04/23/19 at 20:00 Escitalopram Oxalate (Lexapro) 10 mg DAILY PO Last administered on 05/05/19 08:48; Admin Dose 10 MG; Start 04/24/19 at 09:00 IV Flush (NS 3 ml) 3 ml PER PROTOCOL IV ; Start 04/23/19 at 20:00 Ondansetron HCl (Zofran Inj) 4 mg Q6H PRN IV NAUSEA/VOMITING Last administered on 05/03/19 19:38; Admin Dose 4 MG; Start 04/23/19 at 20:00 Acetaminophen (Tylenol Tab) 650 mg Q6H PRN PO .PAIN 1-3 OR TEMP Last administered on 05/04/19 19:51; Admin Dose 650 MG; Start 04/23/19 at 20:00 Morphine Sulfate (morphine) 2 mg Q4H PRN IV .SEVERE PAIN 7-10 Last administered on 05/05/19 11:58; Admin Dose 2 MG; Start 04/23/19 at 20:00 Docusate Sodium (Colace) 100 mg Q12H PRN PO .CONSTIPATION; Start 04/23/19 at 20:00 Bisacodyl (Dulcolax) 5 mg DAILY PRN PO .CONSTIPATION; Start 04/23/19 at 20:00 Heparin Sodium (Porcine) (Heparin (5000 Units/1ml)) 5,000 unit Q8 SC Last administered on 05/05/19at 06:42; Admin Dose 5,000 UNIT; Start 04/23/19 at 22:00 Lactobacillus Acidophilus (Florajen3 Capsule) 1 each BID PO Last administered on 05/05/19at 08:49; Admin Dose 1 EACH; Start 04/23/19 at 21:00 Miscellaneous Information 1 ea NOTE XX ; Start 04/23/19 at 20:30 Glucose (Glutose) 15 gm Q15M PRN PO DECREASED GLUCOSE; Start 04/23/19 at 20:30 Glucose (Glutose) 22.5 gm Q15M PRN PO DECREASED GLUCOSE; Start 04/23/19 at 20:30 Dextrose (D50w Syringe) 25 ml Q15M PRN IV DECREASED GLUCOSE; Start 04/23/19 at 20:30 Dextrose (D50w Syringe) 50 ml Q15M PRN IV DECREASED GLUCOSE; Start 04/23/19 at 20:30 Glucagon (Glucagen) 1 mg Q15M PRN IM DECREASED GLUCOSE; Start 04/23/19 at 20:30 Glucose (Glutose) 15 gm Q15M PRN BUCCAL DECREASED GLUCOSE; Start 04/23/19 at 20:30 [facility] This patient munguia... PRN PRN XX WOUND CARE; Start 04/24/19 at 05:00 Nystatin (Nystatin Powder) 1 applic BID TOP Last administered on 05/05/19at 08:49; Admin Dose 1 APPLIC; Start 04/24/19 at 21:00 Amlodipine Besylate (Norvasc) 10 mg DAILY PO Last administered on 05/05/19at 08:48; Admin Dose 10 MG; Start 04/29/19 at 09:00 Hydralazine HCl (Apresoline) 10 mg Q4H PRN IV sbp >160 Last administered on 04/30/19at 20:52; Admin Dose 10 MG; Start 04/28/19 at 11:00 Pantoprazole (Protonix Tab) 40 mg DAILY@06 PO Last administered on 05/05/19at 06:40; Admin Dose 40 MG; Start 04/29/19 at 06:00 Lisinopril (Zestril) 10 mg DAILY PO Last administered on 05/05/19at 08:49; Admin Dose 10 MG; Start 04/29/19 at 09:30 Hyoscyamine (Levsin (Sl)) 0.125 mg Q4H PRN SL ab cramping; Start 04/29/19 at 12:30 Loperamide HCl (Imodium Cap) 2 mg BID PRN PO DIARRHEA; Start 04/29/19 at 12:30 Polyethylene Glycol (Miralax) 17 gm DAILY PRN PO constipation; Start 05/01/19 at 17:00 Metoclopramide HCl (Reglan) 5 mg Q6 IV Last administered on 05/05/19at 12:06; Admin Dose 5 MG; Start 05/01/19 at 18:00 Sodium Chloride 1,000 ml @ 100 mls/hr Q10H IV Last administered on 05/05/19at 09:48; Admin Dose 100 MLS/HR; Start 05/03/19 at 09:30 Diagnostic Test (Pha) (Accu-Chek) 1 ea 02 XX ; Start 05/05/19 at 02:00 Insulin Aspart (Novolog Insulin Pen) NOVOLOG *MILD* ALGORITHM WITH MEALS BEDTIME SC ; Start 05/04/19 at 12:00 TRISHA ALFRED NP May 05, 2019 14:16
[2019-05-05] MEDS: SCOPOLAMINE 1.5 MG PATCH TRANSDERM SCH (14:48)
[2019-05-05 20:00] VITALS: BP 146/63; PULSE 79; RESP 18
[2019-05-05] MEDS: ATORVASTATIN 40 MG TAB PO SCH (20:51)
[2019-05-06] MEDS: METOCLOPRAMIDE 10 MG INJ IV SCH ×4 (01:01→17:19)
[2019-05-06] MEDS: SOD CHLORIDE 0.9% 1,000 ML IV SCH ×2 (01:01→11:36)
[2019-05-06 02:00] VITALS: BP 139/69; PULSE 86; RESP 18
[2019-05-06] MEDS: ACCU-CHEK XX SCH (02:00)
[2019-05-06] MEDS: PANTOPRAZOLE (EC) 40 MG TAB PO SCH (06:35)
[2019-05-06] MEDS: HEPARIN 5,000 UNIT/1 ML VIAL SC SCH ×3 (06:36→21:30)
[2019-05-06 08:00] VITALS: BP 138/63; PULSE 80; RESP 18
[2019-05-06] MEDS: INSULIN ASPART [NOVOLOG] 3 ML PEN SC SCH ×4 (08:00→21:00)
[2019-05-06] MEDS: ESCITALOPRAM 10 MG TAB PO SCH (08:26)
[2019-05-06] MEDS: L ACIDOPHIL/B LACTIS/B LONGUM CAPSULE PO SCH ×2 (08:26→21:27)
[2019-05-06] MEDS: AMLODIPINE 10 MG TAB PO SCH (08:27)
[2019-05-06] MEDS: LISINOPRIL 10 MG TAB PO SCH (08:27)
[2019-05-06] MEDS: NYSTATIN 30 GM POWDER BTL TOP SCH ×2 (08:28→21:27)
--- NOTE | 2019-05-06 14:27 | PN ---
Date/Time of Note Date/Time of Note DATE: 05/06/19 TIME: 14:15 Assessment/Plan VTE Prophylaxis Risk score (from Ns)>0 risk: 7 SCD applied (from Ns): Yes Pharmacological prophylaxis: heparin Lines/Catheters [facility]from [facility] Peripheral IV Urinary Cath still in place: No Assessment/Plan Assessment/Plan Assessment: Nausea/vomiting- unclear etiology EGD 04/28/2019 Moderate distal esophagitis. Moderate gastritis. Rule out internal infection. Biopsies obtained. Evidence of previous gastrostomy tube site well-healed. Otherwise normal EGD. Gastric biopsies-negative for H. pylori organisms, no dysplasia or intestinal metaplasia is identified, patchy minimal chronic inflammation Diarrhea- possibly 2/2 to antibiotics - resolved Colonoscopy 04/28/2019 3 mm sessile polyp in the ascending colon, ablated. Moderate diverticulosis of the colon. Moderate-sized internal and large external hemorrhoids. Otherwise normal colonoscopy Ascending colon polyp, biopsy: tubular adenoma -Stool studies COLIFORM, ELYSSA ALBICANS -CDIFF- Negative -O&P- Negative Normocytic anemia Abdominal cramping- improved UTI -ID following DM Dyslipidemia HTN Leukocytosis Plan: Consider trial of megace for appetite stimulation Add compazine for nausea Continue scopolamine patch Gastric emptying study -normal Repeat colonoscopy in 5 years Levsin/Continue PPI Probiotics Patient seen in collaboration with Dr. Vasquez Subjective: Course reviewed with nursing staff Patient interviewed and examined All labs, imaging and other results reviewed Patient is complaining of lack of appetite and nausea. Denies any abdominal pain. She reports taking small amounts of liquids and then vomiting. She is considering having another G-tube placed. Gastric emptying study was normal thus no functional cause. Will add trial of megace and compazine. Continue to monitor. Result Diagram: 05/06/19 0516 05/06/19 0516 Results 24hrs Laboratory Tests Test 05/05/19 17:27 05/05/19 20:53 05/06/19 05:16 05/06/19 08:25 Bedside Glucose 89 95 93 White Blood Count 16.6 H Red Blood Count 3.44 L Hemoglobin 8.9 L Hematocrit 28.8 L Mean Corpuscular 83.7 Volume Mean Corpuscular 25.9 L Hemoglobin Mean Corpuscular 30.9 L Hemoglobin Concent Red Cell 17.7 H Distribution Width Platelet Count 436 H Mean Platelet Volume 10.2 Immature 6.000 H Granulocytes % Neutrophils % Segmented 56 Neutrophils % (Manual) Band Neutrophils % 4 (Manual) Lymphocytes % Lymphocytes % 9 L (Manual) Monocytes % Monocytes % (Manual) 13 H Eosinophils % Eosinophils % 13 H (Manual) Basophils % Metamyelocytes % 3 H (manual) Myelocytes % 2 H (Manual) Nucleated Red Blood 0.0 Cells % Immature 1.000 H Granulocytes # Neutrophils # Neutrophils # 9.4 H (Manual) Band Neutrophils # 0.6 Lymphocytes (Manual) 1.4 Lymphocytes # Monocytes # Monocytes # (Manual) 2.1 H Eosinophils # Basophils # Metamyelocytes # 0.4 H Myelocytes # 0.3 H Nucleated Red Blood Cells # Platelet Estimate NORMAL Polychromasia 1+ Anisocytosis 1+ Microcytosis 1+ Macrocytosis 1+ Sodium Level 134 L Potassium Level 4.1 Chloride Level 109 Carbon Dioxide Level 19 L Anion Gap 6 Blood Urea Nitrogen 4 L Creatinine 0.97 Glucose Level 90 Calcium Level 9.7 Phosphorus Level 3.0 Magnesium Level 2.1 Albumin 2.4 L Test 05/06/19 11:39 Bedside Glucose 99 CC: CESARIO VASQUEZ MD ; Exam/Review of Systems Exam Vitals Vital Signs Date Temp Pulse Resp B/P (MAP) Pulse Ox O2 O2 Flow FiO2 Time Delivery Rate 05/06/19 98.5 80 18 138/63 97 08:00 (88) 05/05/19 Room Air 14:00 Intake and Output 05/05/19 05/05/19 05/06/19 1515:00 23:00 07:00 IntakeIntake Total 600 ml 606 ml 900 ml OutputOutput Total 900 ml BalanceBalance 600 ml -294 ml 900 ml Constitutional: alert, oriented Psych: no complaints Head: normocephalic, atraumatic Eyes: nl conjunctiva ENMT: nl external ears & nose, nl lips & teeth Neck: supple, non-tender Respiratory: normal air movement Gastrointestinal: soft, other (morbidly obese, rotund abdomen, prior g tube scar) Musculoskeletal: nl extremities to inspection Results Results 24hrs Laboratory Tests Test 05/05/19 17:27 05/05/19 20:53 05/06/19 05:16 05/06/19 08:25 Bedside Glucose 89 95 93 White Blood Count 16.6 H Red Blood Count 3.44 L Hemoglobin 8.9 L Hematocrit 28.8 L Mean Corpuscular 83.7 Volume Mean Corpuscular 25.9 L Hemoglobin Mean Corpuscular 30.9 L Hemoglobin Concent Red Cell 17.7 H Distribution Width Platelet Count 436 H Mean Platelet Volume 10.2 Immature 6.000 H Granulocytes % Neutrophils % Segmented 56 Neutrophils % (Manual) Band Neutrophils % 4 (Manual) Lymphocytes % Lymphocytes % 9 L (Manual) Monocytes % Monocytes % (Manual) 13 H Eosinophils % Eosinophils % 13 H (Manual) Basophils % Metamyelocytes % 3 H (manual) Myelocytes % 2 H (Manual) Nucleated Red Blood 0.0 Cells % Immature 1.000 H Granulocytes # Neutrophils # Neutrophils # 9.4 H (Manual) Band Neutrophils # 0.6 Lymphocytes (Manual) 1.4 Lymphocytes # Monocytes # Monocytes # (Manual) 2.1 H Eosinophils # Basophils # Metamyelocytes # 0.4 H Myelocytes # 0.3 H Nucleated Red Blood Cells # Platelet Estimate NORMAL Polychromasia 1+ Anisocytosis 1+ Microcytosis 1+ Macrocytosis 1+ Sodium Level 134 L Potassium Level 4.1 Chloride Level 109 Carbon Dioxide Level 19 L Anion Gap 6 Blood Urea Nitrogen 4 L Creatinine 0.97 Glucose Level 90 Calcium Level 9.7 Phosphorus Level 3.0 Magnesium Level 2.1 Albumin 2.4 L Test 05/06/19 11:39 Bedside Glucose 99 Medications Medication Current Medications Atorvastatin Calcium (Lipitor) 40 mg QHS PO Last administered on 05/05/19at 20:51; Admin Dose 40 MG; Start 04/23/19 at 21:00 Clonidine (Catapres) 0.1 mg TID PRN PO ELEVATED BLOOD PRESSURE Last administered on 04/28/19at 22:48; Admin Dose 0.1 MG; Start 04/23/19 at 20:00 Escitalopram Oxalate (Lexapro) 10 mg DAILY PO Last administered on 05/06/19at 08:26; Admin Dose 10 MG; Start 04/24/19 at 09:00 IV Flush (NS 3 ml) 3 ml PER PROTOCOL IV ; Start 04/23/19 at 20:00 Ondansetron HCl (Zofran Inj) 4 mg Q6H PRN IV NAUSEA/VOMITING Last administered on 05/03/19at 19:38; Admin Dose 4 MG; Start 04/23/19 at 20:00 Acetaminophen (Tylenol Tab) 650 mg Q6H PRN PO .PAIN 1-3 OR TEMP Last administ ered on 05/04/19at 19:51; Admin Dose 650 MG; Start 04/23/19 at 20:00 Morphine Sulfate (morphine) 2 mg Q4H PRN IV .SEVERE PAIN 7-10 Last administered on 05/05/19at 11:58; Admin Dose 2 MG; Start 04/23/19 at 20:00 Docusate Sodium (Colace) 100 mg Q12H PRN PO .CONSTIPATION; Start 04/23/19 at 20:00 Bisacodyl (Dulcolax) 5 mg DAILY PRN PO .CONSTIPATION; Start 04/23/19 at 20:00 Heparin Sodium (Porcine) (Heparin (5000 Units/1ml)) 5,000 unit Q8 SC Last administered on 05/06/19at 06:36; Admin Dose 5,000 UNIT; Start 04/23/19 at 22:00 Lactobacillus Acidophilus (Florajen3 Capsule) 1 each BID PO Last administered on 05/06/19 08:26; Admin Dose 1 EACH; Start 04/23/19 at 21:00 Miscellaneous Information 1 ea NOTE XX ; Start 04/23/19 at 20:30 Glucose (Glutose) 15 gm Q15M PRN PO DECREASED GLUCOSE; Start 04/23/19 at 20:30 Glucose (Glutose) 22.5 gm Q15M PRN PO DECREASED GLUCOSE; Start 04/23/19 at 20:30 Dextrose (D50w Syringe) 25 ml Q15M PRN IV DECREASED GLUCOSE; Start 04/23/19 at 20:30 Dextrose (D50w Syringe) 50 ml Q15M PRN IV DECREASED GLUCOSE; Start 04/23/19 at 20:30 Glucagon (Glucagen) 1 mg Q15M PRN IM DECREASED GLUCOSE; Start 04/23/19 at 20:30 Glucose (Glutose) 15 gm Q15M PRN BUCCAL DECREASED GLUCOSE; Start 04/23/19 at 20:30 Miscellaneous Information (Pending [facility] Order For Wound Care) This patient munguia... PRN PRN XX WOUND CARE; Start 04/24/19 at 05:00 Nystatin (Nystatin Powder) 1 applic BID TOP Last administered on 05/06/19at 08:28; Admin Dose 1 APPLIC; Start 04/24/19 at 21:00 Amlodipine Besylate (Norvasc) 10 mg DAILY PO Last administered on 05/06/19 08:27; Admin Dose 10 MG; Start 04/29/19 at 09:00 Hydralazine HCl (Apresoline) 10 mg Q4H PRN IV sbp >160 Last administered on 04/09 20:52; Admin Dose 10 MG; Start 04/28/19 at 11:00 Pantoprazole (Protonix Tab) 40 mg DAILY@06 PO Last administered on 05/06/19 06:35; Admin Dose 40 MG; Start 04/29/19 at 06:00 Lisinopril (Zestril) 10 mg DAILY PO Last administered on 05/06/19 08:27; Admin Dose 10 MG; Start 04/29/19 at 09:30 Hyoscyamine (Levsin (Sl)) 0.125 mg Q4H PRN SL ab cramping; Start 04/29/19 at 12:30 Loperamide HCl (Imodium Cap) 2 mg BID PRN PO DIARRHEA; Start 04/29/19 at 12:30 Polyethylene Glycol (Miralax) 17 gm DAILY PRN PO constipation; Start 05/01/19 at 17:00 Metoclopramide HCl (Reglan) 5 mg Q6 IV Last administered on 05/06/19 11:36; Admin Dose 5 MG; Start 05/01/19 at 18:00 Sodium Chloride 1,000 ml @ 100 mls/hr Q10H IV Last administered on 05/06/19 11:36; Admin Dose 100 MLS/HR; Start 05/03/19 at 09:30 Diagnostic Test (Pha) (Accu-Chek) 1 ea 02 XX ; Start 05/05/19 at 02:00 Insulin Aspart (Novolog Insulin Pen) NOVOLOG *MILD* ALGORITHM WITH MEALS BEDTIME SC ; Start 05/04/19 at 12:00 Scopolamine (Transderm-Scop) 1 patch Q72H TRANSDERM Last administered on 05/05/19at 14:48; Admin Dose 1 PATCH; Start 05/05/19 at 14:30 CANDI HARRIS NP May 06, 2019 14:27
[2019-05-06] MEDS ORDERED: PROCHLORPERAZINE 10 MG INJ IV PRN (14:30)
[2019-05-06 15:21] VITALS: BP 127/63; PULSE 85; RESP 19
--- NOTE | 2019-05-06 15:53 | PN ---
Date/Time of Note Date/Time of Note DATE: 05/06/19 TIME: 15:50 Assessment/Plan VTE Prophylaxis Risk score (from Ns)>0 risk: 7 SCD applied (from Ns): Yes Pharmacological prophylaxis: heparin Lines/Catheters IV Catheter Type (from Nrsg): Peripheral IV Urinary Cath still in place: No Assessment/Plan Assessment/Plan 1. Nausea and vomiting, Acute on chronic - Gi on board and appreciate recommendations. Gastric emptying study was normal. will try compazine, megace, and scopolamine - Continue PPI, Levsin, and Carafate - Encouraged PO intake and ambulation 2. Urinary tract infection- resolved - ID on board and Will monitor off antibiotics 3. Diarrhea- improving - continue probiotics - stool studies noted 4. Skin tear - wound care to area - pain control 5. Diabetes mellitus - ISS and accuchecks 6. History of urinary tract infection - Patient has a history of multidrug-resistant UTIs 7. Hypertension - continue home medications - adjust as needed for better control 8. Disposition - started on compazine, megace, and scopolamine to help with appetite and nausea Result Diagram: 05/06/19 0516 05/06/19 0516 Results 24hrs Laboratory Tests Test 05/05/19 17:27 05/05/19 20:53 05/06/19 05:12 05/06/19 05:16 Bedside Glucose 89 95 Procalcitonin 0.21 H White Blood Count 16.6 H Red Blood Count 3.44 L Hemoglobin 8.9 L Hematocrit 28.8 L Mean Corpuscular 83.7 Volume Mean Corpuscular 25.9 L Hemoglobin Mean Corpuscular 30.9 L Hemoglobin Concent Red Cell 17.7 H Distribution Width Platelet Count 436 H Mean Platelet Volume 10.2 Immature 6.000 H Granulocytes % Neutrophils % Segmented 56 Neutrophils % (Manual) Band Neutrophils % 4 (Manual) Lymphocytes % Lymphocytes % 9 L (Manual) Monocytes % Monocytes % (Manual) 13 H Eosinophils % Eosinophils % 13 H (Manual) Basophils % Metamyelocytes % 3 H (manual) Myelocytes % 2 H (Manual) Nucleated Red Blood 0.0 Cells % Immature 1.000 H Granulocytes # Neutrophils # Neutrophils # 9.4 H (Manual) Band Neutrophils # 0.6 Lymphocytes (Manual) 1.4 Lymphocytes # Monocytes # Monocytes # (Manual) 2.1 H Eosinophils # Basophils # Metamyelocytes # 0.4 H Myelocytes # 0.3 H Nucleated Red Blood Cells # Platelet Estimate NORMAL Polychromasia 1+ Anisocytosis 1+ Microcytosis 1+ Macrocytosis 1+ Sodium Level 134 L Potassium Level 4.1 Chloride Level 109 Carbon Dioxide Level 19 L Anion Gap 6 Blood Urea Nitrogen 4 L Creatinine 0.97 Glucose Level 90 Calcium Level 9.7 Phosphorus Level 3.0 Magnesium Level 2.1 Albumin 2.4 L Test 05/06/19 08:25 05/06/19 11:39 Bedside Glucose 93 99 Subjective 24 Hr Interval Summary Free Text/Dictation Patient still with nausea and states having difficulty keeping any PO down. Exam/Review of Systems Exam Vitals Vital Signs Date Temp Pulse Resp B/P (MAP) Pulse Ox O2 O2 Flow FiO2 Time Delivery Rate 05/06/19 98.6 85 19 127/63 98 15:21 (84) 05/05/19 Room Air 14:00 Intake and Output 05/05/19 05/05/19 05/06/19 1515:00 23:00 07:00 IntakeIntake Total 600 ml 606 ml 900 ml OutputOutput Total 900 ml BalanceBalance 600 ml -294 ml 900 ml Exam General: Distress secondary to nausea Neck: Supple Respiratory: Clear to auscultation bilaterally. no wheezing or rhonchi Cardiovascular: S1, S2, regular rate and rhythm, no obvious murmurs Gastrointestinal: soft, non-tender to palpation, nondistended, bowel sounds heard. Neurological: Moves all extremities spontaneously Skin: No new skin lesions Results Results 24hrs Laboratory Tests Test 05/05/19 17:27 05/05/19 20:53 05/06/19 05:12 05/06/19 05:16 Bedside Glucose 89 95 Procalcitonin 0.21 H White Blood Count 16.6 H Red Blood Count 3.44 L Hemoglobin 8.9 L Hematocrit 28.8 L Mean Corpuscular 83.7 Volume Mean Corpuscular 25.9 L Hemoglobin Mean Corpuscular 30.9 L Hemoglobin Concent Red Cell 17.7 H Distribution Width Platelet Count 436 H Mean Platelet Volume 10.2 Immature 6.000 H Granulocytes % Neutrophils % Segmented 56 Neutrophils % (Manual) Band Neutrophils % 4 (Manual) Lymphocytes % Lymphocytes % 9 L (Manual) Monocytes % Monocytes % (Manual) 13 H Eosinophils % Eosinophils % 13 H (Manual) Basophils % Metamyelocytes % 3 H (manual) Myelocytes % 2 H (Manual) Nucleated Red Blood 0.0 Cells % Immature 1.000 H Granulocytes # Neutrophils # Neutrophils # 9.4 H (Manual) Band Neutrophils # 0.6 Lymphocytes (Manual) 1.4 Lymphocytes # Monocytes # Monocytes # (Manual) 2.1 H Eosinophils # Basophils # Metamyelocytes # 0.4 H Myelocytes # 0.3 H Nucleated Red Blood Cells # Platelet Estimate NORMAL Polychromasia 1+ Anisocytosis 1+ Microcytosis 1+ Macrocytosis 1+ Sodium Level 134 L Potassium Level 4.1 Chloride Level 109 Carbon Dioxide Level 19 L Anion Gap 6 Blood Urea Nitrogen 4 L Creatinine 0.97 Glucose Level 90 Calcium Level 9.7 Phosphorus Level 3.0 Magnesium Level 2.1 Albumin 2.4 L Test 05/06/19 08:25 05/06/19 11:39 Bedside Glucose 93 99 Medications Medication Current Medications Atorvastatin Calcium (Lipitor) 40 mg QHS PO Last administered on 05/05/19 20:51; Admin Dose 40 MG; Start 04/23/19 at 21:00 Clonidine (Catapres) 0.1 mg TID PRN PO ELEVATED BLOOD PRESSURE Last administered on 04/28/19 22:48; Admin Dose 0.1 MG; Start 04/23/19 at 20:00 Escitalopram Oxalate (Lexapro) 10 mg DAILY PO Last administered on 05/06/19 08:26; Admin Dose 10 MG; Start 04/24/19 at 09:00 IV Flush (NS 3 ml) 3 ml PER PROTOCOL IV ; Start 04/23/19 at 20:00 Ondansetron HCl (Zofran Inj) 4 mg Q6H PRN IV NAUSEA/VOMITING Last administered on 05/03/19 19:38; Admin Dose 4 MG; Start 04/23/19 at 20:00 Acetaminophen (Tylenol Tab) 650 mg Q6H PRN PO .PAIN 1-3 OR TEMP Last administered on 05/04/19 19:51; Admin Dose 650 MG; Start 04/23/19 at 20:00 Morphine Sulfate (morphine) 2 mg Q4H PRN IV .SEVERE PAIN 7-10 Last administered on 05/05/19 11:58; Admin Dose 2 MG; Start 04/23/19 at 20:00 Docusate Sodium (Colace) 100 mg Q12H PRN PO .CONSTIPATION; Start 04/23/19 at 20:00 Bisacodyl (Dulcolax) 5 mg DAILY PRN PO .CONSTIPATION; Start 04/23/19 at 20:00 Heparin Sodium (Porcine) (Heparin (5000 Units/1ml)) 5,000 unit Q8 SC Last administered on 05/06/19at 14:41; Admin Dose 5,000 UNIT; Start 04/23/19 at 22:00 Lactobacillus Acidophilus (Florajen3 Capsule) 1 each BID PO Last administered on 05/06/19at 08:26; Admin Dose 1 EACH; Start 04/23/19 at 21:00 Miscellaneous Information 1 ea NOTE XX ; Start 04/23/19 at 20:30 Glucose (Glutose) 15 gm Q15M PRN PO DECREASED GLUCOSE; Start 04/23/19 at 20:30 Glucose (Glutose) 22.5 gm Q15M PRN PO DECREASED GLUCOSE; Start 04/23/19 at 20:30 Dextrose (D50w Syringe) 25 ml Q15M PRN IV DECREASED GLUCOSE; Start 04/23/19 at 20:30 Dextrose (D50w Syringe) 50 ml Q15M PRN IV DECREASED GLUCOSE; Start 04/23/19 at 20:30 Glucagon (Glucagen) 1 mg Q15M PRN IM DECREASED GLUCOSE; Start 04/23/19 at 20:30 Glucose (Glutose) 15 gm Q15M PRN BUCCAL DECREASED GLUCOSE; Start 04/23/19 at 20:30 Miscellaneous Information (Pending [facility] Order For Wound Care) This patient munguia... PRN PRN XX WOUND CARE; Start 04/24/19 at 05:00 Nystatin (Nystatin Powder) 1 applic BID TOP Last administered on 05/06/19at 08:28; Admin Dose 1 APPLIC; Start 04/24/19 at 21:00 Amlodipine Besylate (Norvasc) 10 mg DAILY PO Last administered on 05/06/19at 08:27; Admin Dose 10 MG; Start 04/29/19 at 09:00 Hydralazine HCl (Apresoline) 10 mg Q4H PRN IV sbp >160 Last administered on 04/30/19at 20:52; Admin Dose 10 MG; Start 04/28/19 at 11:00 Pantoprazole (Protonix Tab) 40 mg DAILY@06 PO Last administered on 05/06/19at 06:35; Admin Dose 40 MG; Start 04/29/19 at 06:00 Lisinopril (Zestril) 10 mg DAILY PO Last administered on 05/06/19at 08:27; Admin Dose 10 MG; Start 04/29/19 at 09:30 Hyoscyamine (Levsin (Sl)) 0.125 mg Q4H PRN SL ab cramping; Start 04/29/19 at 12:30 Loperamide HCl (Imodium Cap) 2 mg BID PRN PO DIARRHEA; Start 04/29/19 at 12:30 Polyethylene Glycol (Miralax) 17 gm DAILY PRN PO constipation; Start 05/01/19 at 17:00 Metoclopramide HCl (Reglan) 5 mg Q6 IV Last administered on 05/06/19at 11:36; Admin Dose 5 MG; Start 05/01/19 at 18:00 Sodium Chloride 1,000 ml @ 100 mls/hr Q10H IV Last administered on 05/06/19at 11:36; Admin Dose 100 MLS/HR; Start 05/03/19 at 09:30 Diagnostic Test (Pha) (Accu-Chek) 1 ea 02 XX ; Start 05/05/19 at 02:00 Insulin Aspart (Novolog Insulin Pen) NOVOLOG *MILD* ALGORITHM WITH MEALS BEDTIME SC ; Start 05/04/19 at 12:00 Scopolamine (Transderm-Scop) 1 patch Q72H TRANSDERM Last administered on 05/05/19at 14:48; Admin Dose 1 PATCH; Start 05/05/19 at 14:30 Megestrol Acetate (Megace Susp) 400 mg BID PO ; Start 05/06/19 at 21:00 Prochlorperazine (Compazine Inj) 5 mg Q6H PRN IV NAUSEA AND/OR VOMITING; Start 05/06/19 at 14:30 KAREN GARNER MD May 06, 2019 15:53
[2019-05-06 20:40] VITALS: BP 125/61; PULSE 89; RESP 18
--- NOTE | 2019-05-06 20:55 | CONS ---
Assessment/Plan Assessment/Plan Hospital Course (Demo Recall) 1330 All noted, no acute events, looks comfortable Urine culture on April 17 grew Klebsiella pneumoniae and E. coli both susceptible to cefotaxime and Ancef also tobramycin Antimicrobials: none Physical examination: Obese well-developed elderly woman who is awake in no distress. Head atraumatic normocephalic sclera nonicteric vehicle mucosa dry neck is obese chest rise symmetrical breath sounds diminished bases heart S1-S2 abdomen soft bowel sounds present extremities without cyanosis Assessment: 1. Persistent leukocytosis 1. Status post UTI 2. Morbid obesity 3. Diabetes 4. Hypertension 5. Diarrhea, C. difficile negative 6. Persistent nausea Plan: Clinically unchanged, leukocytosis persists, will order WBC scan, f/u procalcitonin level and gastroenterology recommendations Consultation Date/Type/Reason Admit Date/Time Apr 23, 2019 at 18:26 Initial Consult Date Type of Consult id Date/Time of Note DATE: 05/06/19 TIME: 20:54 Exam/Review of Systems Exam Vitals Vital Signs Date Temp Pulse Resp B/P (MAP) Pulse Ox O2 O2 Flow FiO2 Time Delivery Rate 05/06/19 99.3 89 18 125/61 97 20:40 (82) 05/05/19 Room Air 14:00 Intake and Output 05/05/19 05/05/19 05/06/19 1515:00 23:00 07:00 IntakeIntake Total 600 ml 606 ml 900 ml OutputOutput Total 900 ml BalanceBalance 600 ml -294 ml 900 ml Results Result Diagram: 05/06/19 0516 05/06/19 0516 Results 24hrs Laboratory Tests Test 05/06/19 05:12 05/06/19 05:16 05/06/19 08:25 05/06/19 11:39 Procalcitonin 0.21 H White Blood Count 16.6 H Red Blood Count 3.44 L Hemoglobin 8.9 L Hematocrit 28.8 L Mean Corpuscular 83.7 Volume Mean Corpuscular 25.9 L Hemoglobin Mean Corpuscular 30.9 L Hemoglobin Concent Red Cell 17.7 H Distribution Width Platelet Count 436 H Mean Platelet Volume 10.2 Immature 6.000 H Granulocytes % Neutrophils % Segmented 56 Neutrophils % (Manual) Band Neutrophils % 4 (Manual) Lymphocytes % Lymphocytes % 9 L (Manual) Monocytes % Monocytes % (Manual) 13 H Eosinophils % Eosinophils % 13 H (Manual) Basophils % Metamyelocytes % 3 H (manual) Myelocytes % 2 H (Manual) Nucleated Red Blood 0.0 Cells % Immature 1.000 H Granulocytes # Neutrophils # Neutrophils # 9.4 H (Manual) Band Neutrophils # 0.6 Lymphocytes (Manual) 1.4 Lymphocytes # Monocytes # Monocytes # (Manual) 2.1 H Eosinophils # Basophils # Metamyelocytes # 0.4 H Myelocytes # 0.3 H Nucleated Red Blood Cells # Platelet Estimate NORMAL Polychromasia 1+ Anisocytosis 1+ Microcytosis 1+ Macrocytosis 1+ Sodium Level 134 L Potassium Level 4.1 Chloride Level 109 Carbon Dioxide Level 19 L Anion Gap 6 Blood Urea Nitrogen 4 L Creatinine 0.97 Glucose Level 90 Calcium Level 9.7 Phosphorus Level 3.0 Magnesium Level 2.1 Albumin 2.4 L Bedside Glucose 93 99 Test 05/06/19 17:21 Bedside Glucose 92 Medications Medication Current Medications Atorvastatin Calcium (Lipitor) 40 mg QHS PO Last administered on 05/05/19 20:51; Admin Dose 40 MG; Start 04/23/19 at 21:00 Clonidine (Catapres) 0.1 mg TID PRN PO ELEVATED BLOOD PRESSURE Last admin istered on 04/28/19 22:48; Admin Dose 0.1 MG; Start 04/23/19 at 20:00 Escitalopram Oxalate (Lexapro) 10 mg DAILY PO Last administered on 05/06/19 08:26; Admin Dose 10 MG; Start 04/24/19 at 09:00 IV Flush (NS 3 ml) 3 ml PER PROTOCOL IV ; Start 04/23/19 at 20:00 Ondansetron HCl (Zofran Inj) 4 mg Q6H PRN IV NAUSEA/VOMITING Last administered on 05/03/19 19:38; Admin Dose 4 MG; Start 04/23/19 at 20:00 Acetaminophen (Tylenol Tab) 650 mg Q6H PRN PO .PAIN 1-3 OR TEMP Last administered on 05/04/19 19:51; Admin Dose 650 MG; Start 04/23/19 at 20:00 Morphine Sulfate (morphine) 2 mg Q4H PRN IV .SEVERE PAIN 7-10 Last administered on 05/05/19 11:58; Admin Dose 2 MG; Start 04/23/19 at 20:00 Docusate Sodium (Colace) 100 mg Q12H PRN PO .CONSTIPATION; Start 04/23/19 at 20:00 Bisacodyl (Dulcolax) 5 mg DAILY PRN PO .CONSTIPATION; Start 04/23/19 at 20:00 Heparin Sodium (Porcine) (Heparin (5000 Units/1ml)) 5,000 unit Q8 SC Last administered on 05/06/19at 14:41; Admin Dose 5,000 UNIT; Start 04/23/19 at 22:00 Lactobacillus Acidophilus (Florajen3 Capsule) 1 each BID PO Last administered on 05/06/19at 08:26; Admin Dose 1 EACH; Start 04/23/19 at 21:00 Miscellaneous Information 1 ea NOTE XX ; Start 04/23/19 at 20:30 Glucose (Glutose) 15 gm Q15M PRN PO DECREASED GLUCOSE; Start 04/23/19 at 20:30 Glucose (Glutose) 22.5 gm Q15M PRN PO DECREASED GLUCOSE; Start 04/23/19 at 20:30 Dextrose (D50w Syringe) 25 ml Q15M PRN IV DECREASED GLUCOSE; Start 04/23/19 at 20:30 Dextrose (D50w Syringe) 50 ml Q15M PRN IV DECREASED GLUCOSE; Start 04/23/19 at 20:30 Glucagon (Glucagen) 1 mg Q15M PRN IM DECREASED GLUCOSE; Start 04/23/19 at 20:30 Glucose (Glutose) 15 gm Q15M PRN BUCCAL DECREASED GLUCOSE; Start 04/23/19 at 20:30 Miscellaneous Information (Pending [facility] Order For Wound Care) This patient munguia... PRN PRN XX WOUND CARE; Start 04/24/19 at 05:00 Amlodipine Besylate (Norvasc) 10 mg DAILY PO Last administered on 05/06/19at 08:27; Admin Dose 10 MG; Start 04/29/19 at 09:00 Hydralazine HCl (Apresoline) 10 mg Q4H PRN IV sbp >160 Last administered on 04/30/19at 20:52; Admin Dose 10 MG; Start 04/28/19 at 11:00 Pantoprazole (Protonix Tab) 40 mg DAILY@06 PO Last administered on 05/06/19at 06:35; Admin Dose 40 MG; Start 04/29/19 at 06:00 Lisinopril (Zestril) 10 mg DAILY PO Last administered on 05/06/19at 08:27; Admin Dose 10 MG; Start 04/29/19 at 09:30 Hyoscyamine (Levsin (Sl)) 0.125 mg Q4H PRN SL ab cramping; Start 04/29/19 at 12:30 Loperamide HCl (Imodium Cap) 2 mg BID PRN PO DIARRHEA; Start 04/29/19 at 12:30 Polyethylene Glycol (Miralax) 17 gm DAILY PRN PO constipation; Start 05/01/19 at 17:00 Metoclopramide HCl (Reglan) 5 mg Q6 IV Last administered on 05/06/19at 17:19; Admin Dose 5 MG; Start 05/01/19 at 18:00 Sodium Chloride 1,000 ml @ 100 mls/hr Q10H IV Last administered on 05/06/19at 11:36; Admin Dose 100 MLS/HR; Start 05/03/19 at 09:30 Diagnostic Test (Pha) (Accu-Chek) 1 ea 02 XX ; Start 05/05/19 at 02:00 Insulin Aspart (Novolog Insulin Pen) NOVOLOG *MILD* ALGORITHM WITH MEALS BEDTIME SC ; Start 05/04/19 at 12:00 Scopolamine (Transderm-Scop) 1 patch Q72H TRANSDERM Last administered on 05/05/19at 14:48; Admin Dose 1 PATCH; Start 05/05/19 at 14:30 Megestrol Acetate (Megace Susp) 400 mg BID PO ; Start 05/06/19 at 21:00 Prochlorperazine (Compazine Inj) 5 mg Q6H PRN IV NAUSEA AND/OR VOMITING; Start 05/06/19 at 14:30 Nystatin (Nystatin Powder) 1 applic TID TOP ; Start 05/06/19 at 21:00 ANA MARIA ZULETA NP May 06, 2019 20:55
[2019-05-06] MEDS: ATORVASTATIN 40 MG TAB PO SCH (21:27)
[2019-05-06] MEDS: MEGESTROL (40 MG/ML) 10ML CUP PO SCH (21:27)
[2019-05-06] MEDS: ONDANSETRON 4 MG INJ IV PRN (21:38)
[2019-05-07] MEDS: METOCLOPRAMIDE 10 MG INJ IV SCH ×4 (01:48→17:28)
[2019-05-07] MEDS: SOD CHLORIDE 0.9% 1,000 ML IV SCH ×3 (01:48→17:28)
[2019-05-07] MEDS: ACCU-CHEK XX SCH (02:00)
[2019-05-07 02:26] VITALS: BP 127/57; PULSE 85; RESP 16
[2019-05-07] MEDS: ACETAMINOPHEN 325 MG TAB PO PRN (04:07)
[2019-05-07] MEDS: PANTOPRAZOLE (EC) 40 MG TAB PO SCH (05:56)
[2019-05-07] MEDS: HEPARIN 5,000 UNIT/1 ML VIAL SC SCH ×3 (05:58→21:28)
[2019-05-07 07:18] VITALS: BP 123/57; PULSE 80; RESP 19
[2019-05-07] MEDS: INSULIN ASPART [NOVOLOG] 3 ML PEN SC SCH ×4 (08:00→21:00)
[2019-05-07] MEDS: ESCITALOPRAM 10 MG TAB PO SCH (09:53)
[2019-05-07] MEDS: L ACIDOPHIL/B LACTIS/B LONGUM CAPSULE PO SCH ×2 (09:53→21:26)
[2019-05-07] MEDS: MEGESTROL (40 MG/ML) 10ML CUP PO SCH ×2 (09:53→21:26)
[2019-05-07] MEDS: AMLODIPINE 10 MG TAB PO SCH (09:54)
[2019-05-07] MEDS: LISINOPRIL 10 MG TAB PO SCH (09:54)
[2019-05-07] MEDS: NYSTATIN 30 GM POWDER BTL TOP SCH ×3 (09:54→21:27)
--- NOTE | 2019-05-07 11:28 | PN ---
Date/Time of Note Date/Time of Note DATE: 05/07/19 TIME: 11:18 Assessment/Plan VTE Prophylaxis Risk score (from Nsg)>0 risk: 7 SCD applied (from Nsg): Yes Pharmacological prophylaxis: LMWH Lines/Catheters IV Catheter Type (from Nrsg): Peripheral IV Urinary Cath still in place: No Assessment/Plan Assessment/Plan 1. Nausea and vomiting, Acute on chronic - able to tolerate apple sauce this am and encourage more PO intake as tolerated - Continue on Compazine, Megace, and scopolamine patch - Gi on board and appreciate recommendations. - Continue PPI, Levsin, and Carafate - Encouraged PO intake and ambulation 2. Urinary tract infection- resolved - ID on board and Will monitor off antibiotics 3. Diarrhea- resolved - continue probiotics - stool studies noted 4. Skin tear - wound care to area - pain control 5. Diabetes mellitus - ISS and accuchecks 6. History of urinary tract infection - Patient has a history of multidrug-resistant UTIs 7. Hypertension - continue home medications - adjust as needed for better control 8. Disposition - Once tolerating adequate PO intake, will d/c home Result Diagram: 05/07/1917 05/07/1917 Results 24hrs Laboratory Tests Test 05/06/19 11:39 05/06/19 17:21 05/06/19 21:22 05/07/19 05:17 Bedside Glucose 99 92 91 White Blood Count 15.3 H Red Blood Count 3.27 L Hemoglobin 8.3 L Hematocrit 27.2 L Mean Corpuscular 83.2 Volume Mean Corpuscular 25.4 L Hemoglobin Mean Corpuscular 30.5 L Hemoglobin Concent Red Cell 18.1 H Distribution Width Platelet Count 390 Mean Platelet Volume 10.0 Immature 5.900 H Granulocytes % Neutrophils % Segmented 51 Neutrophils % (Manual) Band Neutrophils % 4 (Manual) Lymphocytes % Lymphocytes % 10 L (Manual) Monocytes % Monocytes % (Manual) 11 Eosinophils % Eosinophils % 20 H (Manual) Basophils % Metamyelocytes % 1 H (manual) Myelocytes % 4 H (Manual) Nucleated Red Blood 0.0 Cells % Immature 0.900 H Granulocytes # Neutrophils # Neutrophils # 7.9 H (Manual) Band Neutrophils # 0.6 Lymphocytes (Manual) 1.5 Lymphocytes # Monocytes # Monocytes # (Manual) 1.6 H Eosinophils # Basophils # Metamyelocytes # 0.1 H Myelocytes # 0.6 H Nucleated Red Blood Cells # Platelet Estimate NORMAL Polychromasia 1+ Anisocytosis 1+ Sodium Level 135 Potassium Level 3.8 Chloride Level 108 Carbon Dioxide Level 21 Anion Gap 6 Blood Urea Nitrogen 4 L Creatinine 0.95 Glucose Level 91 Calcium Level 9.5 Phosphorus Level 3.0 Magnesium Level 1.7 Albumin 2.2 L Test 05/07/19 08:09 Bedside Glucose 95 Subjective 24 Hr Interval Summary Free Text/Dictation Patient states shes feeling better and tolerated some apple sauce without any nausea or vomiting. Low grade temp this am. Exam/Review of Systems Exam Vitals Vital Signs Date Temp Pulse Resp B/P (MAP) Pulse Ox O2 O2 Flow FiO2 Time Delivery Rate 05/07/19 98.0 80 19 123/57 93 Room Air 07:18 (79) Intake and Output 05/06/19 05/06/19 05/07/19 1515:00 23:00 07:00 IntakeIntake Total 600 ml 1000 ml 940 ml BalanceBalance 600 ml 1000 ml 940 ml Exam General: Patient is a pleasant female,no acute distress Neck: Supple Chest: Nontender Lungs: Clear to auscultation bilaterally no crackles rales or wheezing Heart: Normal S1-S2, Regular rhythm and rate. No murmur, S3, or S4 Abdomen: Soft , mild diffuse tenderness to palpation, nondistended , bowel sounds are present. No guarding no rebound tenderness Extremities: Normal to inspection, no edema no cyanosis Results Results 24hrs Laboratory Tests Test 05/06/19 11:39 05/06/19 17:21 05/06/19 21:22 05/07/19 05:17 Bedside Glucose 99 92 91 White Blood Count 15.3 H Red Blood Count 3.27 L Hemoglobin 8.3 L Hematocrit 27.2 L Mean Corpuscular 83.2 Volume Mean Corpuscular 25.4 L Hemoglobin Mean Corpuscular 30.5 L Hemoglobin Concent Red Cell 18.1 H Distribution Width Platelet Count 390 Mean Platelet Volume 10.0 Immature 5.900 H Granulocytes % Neutrophils % Segmented 51 Neutrophils % (Manual) Band Neutrophils % 4 (Manual) Lymphocytes % Lymphocytes % 10 L (Manual) Monocytes % Monocytes % (Manual) 11 Eosinophils % Eosinophils % 20 H (Manual) Basophils % Metamyelocytes % 1 H (manual) Myelocytes % 4 H (Manual) Nucleated Red Blood 0.0 Cells % Immature 0.900 H Granulocytes # Neutrophils # Neutrophils # 7.9 H (Manual) Band Neutrophils # 0.6 Lymphocytes (Manual) 1.5 Lymphocytes # Monocytes # Monocytes # (Manual) 1.6 H Eosinophils # Basophils # Metamyelocytes # 0.1 H Myelocytes # 0.6 H Nucleated Red Blood Cells # Platelet Estimate NORMAL Polychromasia 1+ Anisocytosis 1+ Sodium Level 135 Potassium Level 3.8 Chloride Level 108 Carbon Dioxide Level 21 Anion Gap 6 Blood Urea Nitrogen 4 L Creatinine 0.95 Glucose Level 91 Calcium Level 9.5 Phosphorus Level 3.0 Magnesium Level 1.7 Albumin 2.2 L Test 05/07/19 08:09 Bedside Glucose 95 Medications Medication Current Medications Atorvastatin Calcium (Lipitor) 40 mg QHS PO Last administered on 05/06/19 21:27; Admin Dose 40 MG; Start 04/23/19 at 21:00 Clonidine (Catapres) 0.1 mg TID PRN PO ELEVATED BLOOD PRESSURE Last administered on 04/28/19 22:48; Admin Dose 0.1 MG; Start 04/23/19 at 20:00 Escitalopram Oxalate (Lexapro) 10 mg DAILY PO Last administered on 05/07/19 09:53; Admin Dose 10 MG; Start 04/24/19 at 09:00 IV Flush (NS 3 ml) 3 ml PER PROTOCOL IV ; Start 04/23/19 at 20:00 Ondansetron HCl (Zofran Inj) 4 mg Q6H PRN IV NAUSEA/VOMITING Last administered on 05/03/19 19:38; Admin Dose 4 MG; Start 04/23/19 at 20:00 Acetaminophen (Tylenol Tab) 650 mg Q6H PRN PO .PAIN 1-3 OR TEMP Last administered on 05/07/19 04:07; Admin Dose 650 MG; Start 04/23/19 at 20:00 Morphine Sulfate (morphine) 2 mg Q4H PRN IV .SEVERE PAIN 7-10 Last administered on 05/05/19 11:58; Admin Dose 2 MG; Start 04/23/19 at 20:00 Docusate Sodium (Colace) 100 mg Q12H PRN PO .CONSTIPATION; Start 04/23/19 at 20:00 Bisacodyl (Dulcolax) 5 mg DAILY PRN PO .CONSTIPATION; Start 04/23/19 at 20:00 Heparin Sodium (Porcine) (Heparin (5000 Units/1ml)) 5,000 unit Q8 SC Last administered on 05/07/19at 05:58; Admin Dose 5,000 UNIT; Start 04/23/19 at 22:00 Lactobacillus Acidophilus (Florajen3 Capsule) 1 each BID PO Last administered on 05/07/19at 09:53; Admin Dose 1 EACH; Start 04/23/19 at 21:00 Miscellaneous Information 1 ea NOTE XX ; Start 04/23/19 at 20:30 Glucose (Glutose) 15 gm Q15M PRN PO DECREASED GLUCOSE; Start 04/23/19 at 20:30 Glucose (Glutose) 22.5 gm Q15M PRN PO DECREASED GLUCOSE; Start 04/23/19 at 20:30 Dextrose (D50w Syringe) 25 ml Q15M PRN IV DECREASED GLUCOSE; Start 04/23/19 at 20:30 Dextrose (D50w Syringe) 50 ml Q15M PRN IV DECREASED GLUCOSE; Start 04/23/19 at 20:30 Glucagon (Glucagen) 1 mg Q15M PRN IM DECREASED GLUCOSE; Start 04/23/19 at 20:30 Glucose (Glutose) 15 gm Q15M PRN BUCCAL DECREASED GLUCOSE; Start 04/23/19 at 20:30 Miscellaneous Information (Pending [facility] Order For Wound Care) This patient munguia... PRN PRN XX WOUND CARE; Start 04/24/19 at 05:00 Amlodipine Besylate (Norvasc) 10 mg DAILY PO Last administered on 05/07/19at 09:54; Admin Dose 10 MG; Start 04/29/19 at 09:00 Hydralazine HCl (Apresoline) 10 mg Q4H PRN IV sbp >160 Last administered on 04/30/19at 20:52; Admin Dose 10 MG; Start 04/28/19 at 11:00 Pantoprazole (Protonix Tab) 40 mg DAILY@06 PO Last administered on 05/07/19at 05:56; Admin Dose 40 MG; Start 04/29/19 at 06:00 Lisinopril (Zestril) 10 mg DAILY PO Last administered on 05/07/19at 09:54; Admin Dose 10 MG; Start 04/29/19 at 09:30 Hyoscyamine (Levsin (Sl)) 0.125 mg Q4H PRN SL ab cramping; Start 04/29/19 at 12:30 Loperamide HCl (Imodium Cap) 2 mg BID PRN PO DIARRHEA; Start 04/29/19 at 12:30 Polyethylene Glycol (Miralax) 17 gm DAILY PRN PO constipation; Start 05/01/19 at 17:00 Metoclopramide HCl (Reglan) 5 mg Q6 IV Last administered on 05/07/19at 05:57; Admin Dose 5 MG; Start 05/01/19 at 18:00 Sodium Chloride 1,000 ml @ 50 mls/hr Q20H IV Last administered on 05/07/19 05:26; Admin Dose 50 MLS/HR; Start 05/03/19 at 09:30 Diagnostic Test (Pha) (Accu-Chek) 1 ea 02 XX ; Start 05/05/19 at 02:00 Insulin Aspart (Novolog Insulin Pen) NOVOLOG *MILD* ALGORITHM WITH MEALS BEDTIME SC ; Start 05/04/19 at 12:00 Scopolamine (Transderm-Scop) 1 patch Q72H TRANSDERM Last administered on at 14:48; Admin Dose 1 PATCH; Start 05/05/19 at 14:30 Megestrol Acetate (Megace Susp) 400 mg BID PO Last administered on 05/07/19 09:53; Admin Dose 400 MG; Start 05/06/19 at 21:00 Prochlorperazine (Compazine Inj) 5 mg Q6H PRN IV NAUSEA AND/OR VOMITING; Start 05/06/19 at 14:30 Nystatin (Nystatin Powder) 1 applic TID TOP Last administered on 05/07/19at 09:54; Admin Dose 1 APPLIC; Start 05/06/19 at 21:00 KAREN GARNER MD May 07, 2019 11:28
--- NOTE | 2019-05-07 13:03 | CONS ---
Assessment/Plan Assessment/Plan Hospital Course (Demo Recall) All noted, no acute events, looks comfortable Urine culture on April 17 grew Klebsiella pneumoniae and E. coli both susceptible to cefotaxime and Ancef also tobramycin Antimicrobials: none Physical examination: Obese well-developed elderly woman who is awake in no distress. Head atraumatic normocephalic sclera nonicteric vehicle mucosa dry neck is obese chest rise symmetrical breath sounds diminished bases heart S1-S2 abdomen soft bowel sounds present extremities without cyanosis Assessment: 1. Persistent leukocytosis 1. Status post UTI 2. Morbid obesity 3. Diabetes 4. Hypertension 5. Diarrhea, C. difficile negative 6. Persistent nausea Plan: Clinically unchanged, leukocytosis persists, procalcitonin level mildly elevated, pending WBC scan, gastroenterology recommendations Consultation Date/Type/Reason Admit Date/Time Apr 23, 2019 at 18:26 Initial Consult Date Type of Consult id Date/Time of Note DATE: 05/07/19 TIME: 13:03 Exam/Review of Systems Exam Vitals Vital Signs Date Temp Pulse Resp B/P (MAP) Pulse Ox O2 O2 Flow FiO2 Time Delivery Rate 05/07/19 98.0 80 19 123/57 93 Room Air 07:18 (79) Intake and Output 05/06/19 05/06/19 05/07/19 1515:00 23:00 07:00 IntakeIntake Total 600 ml 1000 ml 940 ml BalanceBalance 600 ml 1000 ml 940 ml Results Result Diagram: 05/07/19 0517 05/07/19 0517 Results 24hrs Laboratory Tests Test 05/06/19 17:21 05/06/19 21:22 05/07/19 05:17 05/07/19 08:09 Bedside Glucose 92 91 95 White Blood Count 15.3 H Red Blood Count 3.27 L Hemoglobin 8.3 L Hematocrit 27.2 L Mean Corpuscular 83.2 Volume Mean Corpuscular 25.4 L Hemoglobin Mean Corpuscular 30.5 L Hemoglobin Concent Red Cell 18.1 H Distribution Width Platelet Count 390 Mean Platelet Volume 10.0 Immature 5.900 H Granulocytes % Neutrophils % Segmented 51 Neutrophils % (Manual) Band Neutrophils % 4 (Manual) Lymphocytes % Lymphocytes % 10 L (Manual) Monocytes % Monocytes % (Manual) 11 Eosinophils % Eosinophils % 20 H (Manual) Basophils % Metamyelocytes % 1 H (manual) Myelocytes % 4 H (Manual) Nucleated Red Blood 0.0 Cells % Immature 0.900 H Granulocytes # Neutrophils # Neutrophils # 7.9 H (Manual) Band Neutrophils # 0.6 Lymphocytes (Manual) 1.5 Lymphocytes # Monocytes # Monocytes # (Manual) 1.6 H Eosinophils # Basophils # Metamyelocytes # 0.1 H Myelocytes # 0.6 H Nucleated Red Blood Cells # Platelet Estimate NORMAL Polychromasia 1+ Anisocytosis 1+ Sodium Level 135 Potassium Level 3.8 Chloride Level 108 Carbon Dioxide Level 21 Anion Gap 6 Blood Urea Nitrogen 4 L Creatinine 0.95 Glucose Level 91 Calcium Level 9.5 Phosphorus Level 3.0 Magnesium Level 1.7 Albumin 2.2 L Medications Medication Current Medications Atorvastatin Calcium (Lipitor) 40 mg QHS PO Last administered on 05/06/19 21:27; Admin Dose 40 MG; Start 04/23/19 at 21:00 Clonidine (Catapres) 0.1 mg TID PRN PO ELEVATED BLOOD PRESSURE Last administered on 04/28/19 22:48; Admin Dose 0.1 MG; Start 04/23/19 at 20:00 Escitalopram Oxalate (Lexapro) 10 mg DAILY PO Last administered on 05/07/19 09:53; Admin Dose 10 MG; Start 04/24/19 at 09:00 IV Flush (NS 3 ml) 3 ml PER PROTOCOL IV ; Start 04/23/19 at 20:00 Ondansetron HCl (Zofran Inj) 4 mg Q6H PRN IV NAUSEA/VOMITING Last administered on 05/03/19 19:38; Admin Dose 4 MG; Start 04/23/19 at 20:00 Acetaminophen (Tylenol Tab) 650 mg Q6H PRN PO .PAIN 1-3 OR TEMP Last administered on 05/07/19 04:07; Admin Dose 650 MG; Start 04/23/19 at 20:00 Morphine Sulfate (morphine) 2 mg Q4H PRN IV .SEVERE PAIN 7-10 Last administered on 05/05/19 11:58; Admin Dose 2 MG; Start 04/23/19 at 20:00 Docusate Sodium (Colace) 100 mg Q12H PRN PO .CONSTIPATION; Start 04/23/19 at 2 0:00 Bisacodyl (Dulcolax) 5 mg DAILY PRN PO .CONSTIPATION; Start 04/23/19 at 20:00 Heparin Sodium (Porcine) (Heparin (5000 Units/1ml)) 5,000 unit Q8 SC Last administered on 05/07/19at 05:58; Admin Dose 5,000 UNIT; Start 04/23/19 at 22:00 Lactobacillus Acidophilus (Florajen3 Capsule) 1 each BID PO Last administered on 05/07/19at 09:53; Admin Dose 1 EACH; Start 04/23/19 at 21:00 Miscellaneous Information 1 ea NOTE XX ; Start 04/23/19 at 20:30 Glucose (Glutose) 15 gm Q15M PRN PO DECREASED GLUCOSE; Start 04/23/19 at 20:30 Glucose (Glutose) 22.5 gm Q15M PRN PO DECREASED GLUCOSE; Start 04/23/19 at 20:30 Dextrose (D50w Syringe) 25 ml Q15M PRN IV DECREASED GLUCOSE; Start 04/23/19 at 20:30 Dextrose (D50w Syringe) 50 ml Q15M PRN IV DECREASED GLUCOSE; Start 04/23/19 at 20:30 Glucagon (Glucagen) 1 mg Q15M PRN IM DECREASED GLUCOSE; Start 04/23/19 at 20:30 Glucose (Glutose) 15 gm Q15M PRN BUCCAL DECREASED GLUCOSE; Start 04/23/19 at 20:30 Miscellaneous Information (Pending [facility] Order For Wound Care) This patient munguia... PRN PRN XX WOUND CARE; Start 04/24/19 at 05:00 Amlodipine Besylate (Norvasc) 10 mg DAILY PO Last administered on 05/07/19at 09:54; Admin Dose 10 MG; Start 04/29/19 at 09:00 Hydralazine HCl (Apresoline) 10 mg Q4H PRN IV sbp >160 Last administered on 04/30/19at 20:52; Admin Dose 10 MG; Start 04/28/19 at 11:00 Pantoprazole (Protonix Tab) 40 mg DAILY@06 PO Last administered on 05/07/19at 05:56; Admin Dose 40 MG; Start 04/29/19 at 06:00 Lisinopril (Zestril) 10 mg DAILY PO Last administered on 05/07/19at 09:54; Admin Dose 10 MG; Start 04/29/19 at 09:30 Hyoscyamine (Levsin (Sl)) 0.125 mg Q4H PRN SL ab cramping; Start 04/29/19 at 12:30 Loperamide HCl (Imodium Cap) 2 mg BID PRN PO DIARRHEA; Start 04/29/19 at 12:30 Polyethylene Glycol (Miralax) 17 gm DAILY PRN PO constipation; Start 05/01/19 at 17:00 Metoclopramide HCl (Reglan) 5 mg Q6 IV Last administered on 05/07/19 05:57; Admin Dose 5 MG; Start 05/01/19 at 18:00 Sodium Chloride 1,000 ml @ 50 mls/hr Q20H IV Last administered on 05/07/19 05:26; Admin Dose 50 MLS/HR; Start 05/03/19 at 09:30 Diagnostic Test (Pha) (Accu-Chek) 1 ea 02 XX ; Start 05/05/19 at 02:00 Insulin Aspart (Novolog Insulin Pen) NOVOLOG *MILD* ALGORITHM WITH MEALS BEDTIME SC ; Start 05/04/19 at 12:00 Scopolamine (Transderm-Scop) 1 patch Q72H TRANSDERM Last administered on 05/05/19at 14:48; Admin Dose 1 PATCH; Start 05/05/19 at 14:30 Megestrol Acetate (Megace Susp) 400 mg BID PO Last administered on 05/07/19 09:53; Admin Dose 400 MG; Start 05/06/19 at 21:00 Prochlorperazine (Compazine Inj) 5 mg Q6H PRN IV NAUSEA AND/OR VOMITING; Start 05/06/19 at 14:30 Nystatin (Nystatin Powder) 1 applic TID TOP Last administered on 05/07/19at 09:54; Admin Dose 1 APPLIC; Start 05/06/19 at 21:00 ANA MARIA ZULETA NP May 07, 2019 13:03
--- NOTE | 2019-05-07 13:52 | PN ---
Date/Time of Note Date/Time of Note DATE: 05/07/19 TIME: 13:42 Assessment/Plan VTE Prophylaxis Risk score (from Ns)>0 risk: 7 SCD applied (from Ns): Yes Pharmacological prophylaxis: heparin Lines/Catheters [facility] Peripheral IV Urinary Cath still in place: No Assessment/Plan Assessment/Plan Assessment: Nausea/vomiting- unclear etiology EGD 04/28/2019 Moderate distal esophagitis. Moderate gastritis. Rule out internal infection. Biopsies obtained. Evidence of previous gastrostomy tube site well-healed. Otherwise normal EGD. Gastric biopsies-negative for H. pylori organisms, no dysplasia or intestinal metaplasia is identified, patchy minimal chronic inflammation Diarrhea- possibly 2/2 to antibiotics - resolved Colonoscopy 04/28/2019 3 mm sessile polyp in the ascending colon, ablated. Moderate diverticulosis of the colon. Moderate-sized internal and large external hemorrhoids. Otherwise normal colonoscopy Ascending colon polyp, biopsy: tubular adenoma -Stool studies COLIFORM, ELYSSA ALBICANS -CDIFF- Negative -O&P- Negative Normocytic anemia Abdominal cramping- improved UTI -ID following DM Dyslipidemia HTN Leukocytosis Plan: Start calorie counts Continue megace for appetite stimulation Continue compazine for nausea Continue scopolamine patch Gastric emptying study -normal Repeat colonoscopy in 5 years Levsin/Continue PPI Probiotics Patient seen in collaboration with Dr. Vasquez Subjective: Course reviewed with nursing staff Patient interviewed and examined All labs, imaging and other results reviewed Patient is reports nausea is slightly improving and has been tolerating small amounts of liquids, yogurt, and pudding. Denies abdominal pain. Discussed with patient and nurse will start calorie counts to monitor oral intake. Continue current regimen and treatment plan. Physical exam: Constitutional: alert, oriented Psych: no complaints Head: normocephalic, atraumatic Eyes: nl conjunctiva ENMT: nl external ears & nose, nl lips & teeth Neck: supple, non-tender Respiratory: normal air movement Gastrointestinal: soft, other (morbidly obese, rotund abdomen, prior g tube scar) Musculoskeletal: nl extremities to inspection Result Diagram: 05/07/1951605/07/1917 Results 24hrs Laboratory Tests Test 05/06/19 17:21 05/06/19 21:22 05/07/19 05:17 05/07/19 08:09 Bedside Glucose 92 91 95 White Blood Count 15.3 H Red Blood Count 3.27 L Hemoglobin 8.3 L Hematocrit 27.2 L Mean Corpuscular 83.2 Volume Mean Corpuscular 25.4 L Hemoglobin Mean Corpuscular 30.5 L Hemoglobin Concent Red Cell 18.1 H Distribution Width Platelet Count 390 Mean Platelet Volume 10.0 Immature 5.900 H Granulocytes % Neutrophils % Segmented 51 Neutrophils % (Manual) Band Neutrophils % 4 (Manual) Lymphocytes % Lymphocytes % 10 L (Manual) Monocytes % Monocytes % (Manual) 11 Eosinophils % Eosinophils % 20 H (Manual) Basophils % Metamyelocytes % 1 H (manual) Myelocytes % 4 H (Manual) Nucleated Red Blood 0.0 Cells % Immature 0.900 H Granulocytes # Neutrophils # Neutrophils # 7.9 H (Manual) Band Neutrophils # 0.6 Lymphocytes (Manual) 1.5 Lymphocytes # Monocytes # Monocytes # (Manual) 1.6 H Eosinophils # Basophils # Metamyelocytes # 0.1 H Myelocytes # 0.6 H Nucleated Red Blood Cells # Platelet Estimate NORMAL Polychromasia 1+ Anisocytosis 1+ Sodium Level 135 Potassium Level 3.8 Chloride Level 108 Carbon Dioxide Level 21 Anion Gap 6 Blood Urea Nitrogen 4 L Creatinine 0.95 Glucose Level 91 Calcium Level 9.5 Phosphorus Level 3.0 Magnesium Level 1.7 Albumin 2.2 L Test 05/07/19 13:08 Bedside Glucose 95 CC: CESARIO VASQUEZ MD ; Exam/Review of Systems Exam Vitals Vital Signs Date Temp Pulse Resp B/P (MAP) Pulse Ox O2 O2 Flow FiO2 Time Delivery Rate 05/07/19 98.0 80 19 123/57 93 Room Air 07:18 (79) Intake and Output 05/06/19 05/06/19 05/07/19 1515:00 23:00 07:00 IntakeIntake Total 600 ml 1000 ml 940 ml BalanceBalance 600 ml 1000 ml 940 ml Results Results 24hrs Laboratory Tests Test 05/06/19 17:21 05/06/19 21:22 05/07/19 05:17 05/07/19 08:09 Bedside Glucose 92 91 95 White Blood Count 15.3 H Red Blood Count 3.27 L Hemoglobin 8.3 L Hematocrit 27.2 L Mean Corpuscular 83.2 Volume Mean Corpuscular 25.4 L Hemoglobin Mean Corpuscular 30.5 L Hemoglobin Concent Red Cell 18.1 H Distribution Width Platelet Count 390 Mean Platelet Volume 10.0 Immature 5.900 H Granulocytes % Neutrophils % Segmented 51 Neutrophils % (Manual) Band Neutrophils % 4 (Manual) Lymphocytes % Lymphocytes % 10 L (Manual) Monocytes % Monocytes % (Manual) 11 Eosinophils % Eosinophils % 20 H (Manual) Basophils % Metamyelocytes % 1 H (manual) Myelocytes % 4 H (Manual) Nucleated Red Blood 0.0 Cells % Immature 0.900 H Granulocytes # Neutrophils # Neutrophils # 7.9 H (Manual) Band Neutrophils # 0.6 Lymphocytes (Manual) 1.5 Lymphocytes # Monocytes # Monocytes # (Manual) 1.6 H Eosinophils # Basophils # Metamyelocytes # 0.1 H Myelocytes # 0.6 H Nucleated Red Blood Cells # Platelet Estimate NORMAL Polychromasia 1+ Anisocytosis 1+ Sodium Level 135 Potassium Level 3.8 Chloride Level 108 Carbon Dioxide Level 21 Anion Gap 6 Blood Urea Nitrogen 4 L Creatinine 0.95 Glucose Level 91 Calcium Level 9.5 Phosphorus Level 3.0 Magnesium Level 1.7 Albumin 2.2 L Test 05/07/19 13:08 Bedside Glucose 95 Medications Medication Current Medications Atorvastatin Calcium (Lipitor) 40 mg QHS PO Last administered on 05/06/19 21:27; Admin Dose 40 MG; Start 04/23/19 at 21:00 Clonidine (Catapres) 0.1 mg TID PRN PO ELEVATED BLOOD PRESSURE Last administered on 04/28/19at 22:48; Admin Dose 0.1 MG; Start 04/23/19 at 20:00 Escitalopram Oxalate (Lexapro) 10 mg DAILY PO Last administered on 05/07/19 09:53; Admin Dose 10 MG; Start 04/24/19 at 09:00 IV Flush (NS 3 ml) 3 ml PER PROTOCOL IV ; Start 04/23/19 at 20:00 Ondansetron HCl (Zofran Inj) 4 mg Q6H PRN IV NAUSEA/VOMITING Last administered on 05/03/19at 19:38; Admin Dose 4 MG; Start 04/23/19 at 20:00 Acetaminophen (Tylenol Tab) 650 mg Q6H PRN PO .PAIN 1-3 OR TEMP Last administered on 05/07/19 04:07; Admin Dose 650 MG; Start 04/23/19 at 20:00 Morphine Sulfate (morphine) 2 mg Q4H PRN IV .SEVERE PAIN 7-10 Last administered on 05/05/19at 11:58; Admin Dose 2 MG; Start 04/23/19 at 20:00 Docusate Sodium (Colace) 100 mg Q12H PRN PO .CONSTIPATION; Start 04/23/19 at 20:00 Bisacodyl (Dulcolax) 5 mg DAILY PRN PO .CONSTIPATION; Start 04/23/19 at 20:00 Heparin Sodium (Porcine) (Heparin (5000 Units/1ml)) 5,000 unit Q8 SC Last administered on 05/07/19at 05:58; Admin Dose 5,000 UNIT; Start 04/23/19 at 22:00 Lactobacillus Acidophilus (Florajen3 Capsule) 1 each BID PO Last administered on 05/07/19at 09:53; Admin Dose 1 EACH; Start 04/23/19 at 21:00 Miscellaneous Information 1 ea NOTE XX ; Start 04/23/19 at 20:30 Glucose (Glutose) 15 gm Q15M PRN PO DECREASED GLUCOSE; Start 04/23/19 at 20:30 Glucose (Glutose) 22.5 gm Q15M PRN PO DECREASED GLUCOSE; Start 04/23/19 at 20:30 Dextrose (D50w Syringe) 25 ml Q15M PRN IV DECREASED GLUCOSE; Start 04/23/19 at 20:30 Dextrose (D50w Syringe) 50 ml Q15M PRN IV DECREASED GLUCOSE; Start 04/23/19 at 20:30 Glucagon (Glucagen) 1 mg Q15M PRN IM DECREASED GLUCOSE; Start 04/23/19 at 20:30 Glucose (Glutose) 15 gm Q15M PRN BUCCAL DECREASED GLUCOSE; Start 04/23/19 at 20:30 [facility] This patient munguia... PRN PRN XX WOUND CARE; Start 04/24/19 at 05:00 Amlodipine Besylate (Norvasc) 10 mg DAILY PO Last administered on 05/07/19at 09:54; Admin Dose 10 MG; Start 04/29/19 at 09:00 Hydralazine HCl (Apresoline) 10 mg Q4H PRN IV sbp >160 Last administered on 04/30/19at 20:52; Admin Dose 10 MG; Start 04/28/19 at 11:00 Pantoprazole (Protonix Tab) 40 mg DAILY@06 PO Last administered on 05/07/19 05:56; Admin Dose 40 MG; Start 04/29/19 at 06:00 Lisinopril (Zestril) 10 mg DAILY PO Last administered on 05/07/19 09:54; Admin Dose 10 MG; Start 04/29/19 at 09:30 Hyoscyamine (Levsin (Sl)) 0.125 mg Q4H PRN SL ab cramping; Start 04/29/19 at 12:30 Loperamide HCl (Imodium Cap) 2 mg BID PRN PO DIARRHEA; Start 04/29/19 at 12:30 Polyethylene Glycol (Miralax) 17 gm DAILY PRN PO constipation; Start 05/01/19 at 17:00 Metoclopramide HCl (Reglan) 5 mg Q6 IV Last administered on 05/07/19 13:12; Admin Dose 5 MG; Start 05/01/19 at 18:00 Sodium Chloride 1,000 ml @ 50 mls/hr Q20H IV Last administered on 05/07/19 05:26; Admin Dose 50 MLS/HR; Start 05/03/19 at 09:30 Diagnostic Test (Pha) (Accu-Chek) 1 ea 02 XX ; Start 05/05/19 at 02:00 Insulin Aspart (Novolog Insulin Pen) NOVOLOG *MILD* ALGORITHM WITH MEALS BEDTIME SC ; Start 05/04/19 at 12:00 Scopolamine (Transderm-Scop) 1 patch Q72H TRANSDERM Last administered on 05/05/19 14:48; Admin Dose 1 PATCH; Start 05/05/19 at 14:30 Megestrol Acetate (Megace Susp) 400 mg BID PO Last administered on 05/07/19 09:53; Admin Dose 400 MG; Start 05/06/19 at 21:00 Prochlorperazine (Compazine Inj) 5 mg Q6H PRN IV NAUSEA AND/OR VOMITING; Start 05/06/19 at 14:30 Nystatin (Nystatin Powder) 1 applic TID TOP Last administered on 05/07/19 13:12; Admin Dose 1 APPLIC; Start 05/06/19 at 21:00 CANDI HARRIS NP May 07, 2019 13:52
[2019-05-07 14:12] VITALS: BP 130/60; PULSE 76; RESP 18
[2019-05-07 20:27] VITALS: BP 133/62; PULSE 78; RESP 16
[2019-05-07] MEDS: ATORVASTATIN 40 MG TAB PO SCH (21:26)
[2019-05-08] MEDS: METOCLOPRAMIDE 10 MG INJ IV SCH ×4 (00:20→17:43)
[2019-05-08] MEDS: ACCU-CHEK XX SCH (02:00)
[2019-05-08 02:28] VITALS: BP 102/50; PULSE 77; RESP 16
[2019-05-08] MEDS: PANTOPRAZOLE (EC) 40 MG TAB PO SCH (05:26)
[2019-05-08] MEDS: HEPARIN 5,000 UNIT/1 ML VIAL SC SCH ×3 (05:29→21:11)
[2019-05-08 08:00] VITALS: BP 126/60; PULSE 81; RESP 28
[2019-05-08] MEDS: INSULIN ASPART [NOVOLOG] 3 ML PEN SC SCH ×4 (08:00→21:00)
[2019-05-08] MEDS: NYSTATIN 30 GM POWDER BTL TOP SCH ×3 (08:04→21:13)
[2019-05-08] MEDS: MEGESTROL (40 MG/ML) 10ML CUP PO SCH ×2 (08:04→21:09)
[2019-05-08] MEDS: L ACIDOPHIL/B LACTIS/B LONGUM CAPSULE PO SCH ×2 (08:04→21:09)
[2019-05-08] MEDS: AMLODIPINE 10 MG TAB PO SCH (08:04)
[2019-05-08] MEDS: LISINOPRIL 10 MG TAB PO SCH (08:04)
[2019-05-08] MEDS: ESCITALOPRAM 10 MG TAB PO SCH (08:04)
[2019-05-08] MEDS: ONDANSETRON 4 MG INJ IV PRN (10:00)
[2019-05-08] MEDS: SOD CHLORIDE 0.9% 1,000 ML IV SCH (12:57)
[2019-05-08 14:00] VITALS: BP 132/91; PULSE 83; RESP 28
--- NOTE | 2019-05-08 14:24 | PN ---
Date/Time of Note Date/Time of Note DATE: 05/08/19 TIME: 14:23 Assessment/Plan VTE Prophylaxis Risk score (from Ns)>0 risk: 7 SCD applied (from Ns): Yes Pharmacological prophylaxis: heparin Lines/Catheters IV [facility] (from [facility] Peripheral IV Urinary Cath still in place: No Assessment/Plan Hospital Course Assessment and plan 1. Nausea and vomiting acute on chronic. - Antiemetics as needed. - GI following. - Continue on PPI and Carafate. - Follow-up with GI if need for further recommendations. 2. UTI. - Resolved at present. - ID consult following. 3. Diarrhea. - Resolved. - On probiotics. 4. Skin tear. - Continue wound care. 5. Diabetes. - Continue insulin regimen. Adjust as needed 6. Hypertension. - Continue antihypertensives. Adjust as needed. Disposition and plan. Still unable to tolerate oral intake. Continue with antiemetics. On Megace as well. Follow-up with GI. May consider PPN if patient is continued with poor oral intake. Discussed POC with Dr. Hewitt Result Diagram: 05/07/1951605/07/1917 Results 24hrs Laboratory Tests Test 05/07/19 17:24 05/07/19 21:24 05/08/19 08:01 05/08/19 12:27 Bedside Glucose 94 101 80 94 Subjective 24 Hr Interval Summary Free Text/Dictation still reports nausea with eating any food Exam/Review of Systems Exam Vitals Vital Signs Date Temp Pulse Resp B/P (MAP) Pulse Ox O2 O2 Flow FiO2 Time Delivery Rate 05/08/19 98.6 81 28 126/60 97 08:00 (82) 05/07/19 Room Air 14:12 Intake and Output 05/07/19 05/07/19 05/08/19 1515:00 23:00 07:00 IntakeIntake Total 350 ml 950 ml 600 ml BalanceBalance 350 ml 950 ml 600 ml Constitutional: alert, obese Neck: supple, non-tender Respiratory: clear to auscultation, normal air movement Cardiovascular: other (regular rate ) Gastrointestinal: soft, tender (minimally on lower abdomen ) Neurological: nl mental status, nl speech Results Results 24hrs Laboratory Tests Test 05/07/19 17:24 05/07/19 21:24 05/08/19 08:01 05/08/19 12:27 Bedside Glucose 94 101 80 94 Medications Medication Current Medications Atorvastatin Calcium (Lipitor) 40 mg QHS PO Last administered on 05/07/19 21:26; Admin Dose 40 MG; Start 04/23/19 at 21:00 Clonidine (Catapres) 0.1 mg TID PRN PO ELEVATED BLOOD PRESSURE Last administered on 04/28/19 22:48; Admin Dose 0.1 MG; Start 04/23/19 at 20:00 Escitalopram Oxalate (Lexapro) 10 mg DAILY PO Last administered on 05/08/19 08:04; Admin Dose 10 MG; Start 04/24/19 at 09:00 IV Flush (NS 3 ml) 3 ml PER PROTOCOL IV ; Start 04/23/19 at 20:00 Ondansetron HCl (Zofran Inj) 4 mg Q6H PRN IV NAUSEA/VOMITING Last administered on 05/08/19 10:00; Admin Dose 4 MG; Start 04/23/19 at 20:00 Acetaminophen (Tylenol Tab) 650 mg Q6H PRN PO .PAIN 1-3 OR TEMP Last administered on 05/07/19 04:07; Admin Dose 650 MG; Start 04/23/19 at 20:00 Morphine Sulfate (morphine) 2 mg Q4H PRN IV .SEVERE PAIN 7-10 Last administered on 05/05/19 11:58; Admin Dose 2 MG; Start 04/23/19 at 20:00 Docusate Sodium (Colace) 100 mg Q12H PRN PO .CONSTIPATION; Start 04/23/19 at 20:00 Bisacodyl (Dulcolax) 5 mg DAILY PRN PO .CONSTIPATION; Start 04/23/19 at 20:00 Heparin Sodium (Porcine) (Heparin (5000 Units/1ml)) 5,000 unit Q8 SC Last administered on 05/08/19 05:29; Admin Dose 5,000 UNIT; Start 04/23/19 at 22:00 Lactobacillus Acidophilus (Florajen3 Capsule) 1 each BID PO Last administered on 05/08/19 08:04; Admin Dose 1 EACH; Start 04/23/19 at 21:00 Miscellaneous Information 1 ea NOTE XX ; Start 04/23/19 at 20:30 Glucose (Glutose) 15 gm Q15M PRN PO DECREASED GLUCOSE; Start 04/23/19 at 20:30 Glucose (Glutose) 22.5 gm Q15M PRN PO DECREASED GLUCOSE; Start 04/23/19 at 20:30 Dextrose (D50w Syringe) 25 ml Q15M PRN IV DECREASED GLUCOSE; Start 04/23/19 at 20:30 Dextrose (D50w Syringe) 50 ml Q15M PRN IV DECREASED GLUCOSE; Start 04/23/19 at 20:30 Glucagon (Glucagen) 1 mg Q15M PRN IM DECREASED GLUCOSE; Start 04/23/19 at 20:30 Glucose (Glutose) 15 gm Q15M PRN BUCCAL DECREASED GLUCOSE; Start 04/23/19 at 20:30 [facility] This patient munguia... PRN PRN XX WOUND CARE; Start 04/24/19 at 05:00 Amlodipine Besylate (Norvasc) 10 mg DAILY PO Last administered on 05/08/19at 08:04; Admin Dose 10 MG; Start 04/29/19 at 09:00 Hydralazine HCl (Apresoline) 10 mg Q4H PRN IV sbp >160 Last administered on 04/30/19at 20:52; Admin Dose 10 MG; Start 04/28/19 at 11:00 Pantoprazole (Protonix Tab) 40 mg DAILY@06 PO Last administered on 05/08/19at 0 5:26; Admin Dose 40 MG; Start 04/29/19 at 06:00 Lisinopril (Zestril) 10 mg DAILY PO Last administered on 05/08/19at 08:04; Admin Dose 10 MG; Start 04/29/19 at 09:30 Hyoscyamine (Levsin (Sl)) 0.125 mg Q4H PRN SL ab cramping; Start 04/29/19 at 12:30 Loperamide HCl (Imodium Cap) 2 mg BID PRN PO DIARRHEA; Start 04/29/19 at 12:30 Polyethylene Glycol (Miralax) 17 gm DAILY PRN PO constipation; Start 05/01/19 at 17:00 Metoclopramide HCl (Reglan) 5 mg Q6 IV Last administered on 05/08/19at 12:53; Admin Dose 5 MG; Start 05/01/19 at 18:00 Sodium Chloride 1,000 ml @ 50 mls/hr Q20H IV Last administered on 05/08/19at 12:57; Admin Dose 50 MLS/HR; Start 05/03/19 at 09:30 Diagnostic Test (Pha) (Accu-Chek) 1 ea 02 XX ; Start 05/05/19 at 02:00 Insulin Aspart (Novolog Insulin Pen) NOVOLOG *MILD* ALGORITHM WITH MEALS BEDTIME SC ; Start 05/04/19 at 12:00 Scopolamine (Transderm-Scop) 1 patch Q72H TRANSDERM Last administered on 05/05/19at 14:48; Admin Dose 1 PATCH; Start 05/05/19 at 14:30 Megestrol Acetate (Megace Susp) 400 mg BID PO Last administered on 05/08/19at 08:04; Admin Dose 400 MG; Start 05/06/19 at 21:00 Prochlorperazine (Compazine Inj) 5 mg Q6H PRN IV NAUSEA AND/OR VOMITING; Start 05/06/19 at 14:30 Nystatin (Nystatin Powder) 1 applic TID TOP Last administered on 05/08/19at 12:53; Admin Dose 1 APPLIC; Start 05/06/19 at 21:00 JOSEFINA LUGO NP May 08, 2019 14:24
[2019-05-08] MEDS: SCOPOLAMINE 1.5 MG PATCH TRANSDERM SCH (14:49)
--- NOTE | 2019-05-08 15:20 | CONS ---
Assessment/Plan Assessment/Plan Hospital Course (Demo Recall) All noted, no acute events no fevers Urine culture on April 17 grew Klebsiella pneumoniae and E. coli both susceptible to cefotaxime and Ancef also tobramycin Antimicrobials: none Physical examination: Obese well-developed elderly woman who is awake in no distress. Head atraumatic normocephalic sclera nonicteric vehicle mucosa dry neck is obese chest rise symmetrical breath sounds diminished bases heart S1-S2 abdomen soft bowel sounds present extremities without cyanosis Assessment: 1. Persistent leukocytosis 1. Status post UTI 2. Morbid obesity 3. Diabetes 4. Hypertension 5. Diarrhea, C. difficile negative 6. Persistent nausea Plan: Clinically unchanged, pending WBC scan, f/u gastroenterology recommendations Consultation Date/Type/Reason Admit Date/Time Apr 23, 2019 at 18:26 Initial Consult Date Type of Consult id Date/Time of Note DATE: 05/08/19 TIME: 15:19 Exam/Review of Systems Exam Vitals Vital Signs Date Temp Pulse Resp B/P (MAP) Pulse Ox O2 O2 Flow FiO2 Time Delivery Rate 05/08/19 98.6 81 28 126/60 97 08:00 (82) 05/07/19 Room Air 14:12 Intake and Output 05/07/19 05/07/19 05/08/19 1515:00 23:00 07:00 IntakeIntake Total 350 ml 950 ml 600 ml BalanceBalance 350 ml 950 ml 600 ml Results Result Diagram: 05/07/19 0517 05/07/19 0517 Results 24hrs Laboratory Tests Test 05/07/19 17:24 05/07/19 21:24 05/08/19 08:01 05/08/19 12:27 Bedside Glucose 94 101 80 94 Medications Medication Current Medications Atorvastatin Calcium (Lipitor) 40 mg QHS PO Last administered on 05/07/19at 21:26; Admin Dose 40 MG; Start 04/23/19 at 21:00 Clonidine (Catapres) 0.1 mg TID PRN PO ELEVATED BLOOD PRESSURE Last administered on 04/28/19at 22:48; Admin Dose 0.1 MG; Start 04/23/19 at 20:00 Escitalopram Oxalate (Lexapro) 10 mg DAILY PO Last administered on 05/08/19at 08:04; Admin Dose 10 MG; Start 04/24/19 at 09:00 IV Flush (NS 3 ml) 3 ml PER PROTOCOL IV ; Start 04/23/19 at 20:00 Ondansetron HCl (Zofran Inj) 4 mg Q6H PRN IV NAUSEA/VOMITING Last administered on 05/08/19at 10:00; Admin Dose 4 MG; Start 04/23/19 at 20:00 Acetaminophen (Tylenol Tab) 650 mg Q6H PRN PO .PAIN 1-3 OR TEMP Last administered on 05/07/19 04:07; Admin Dose 650 MG; Start 04/23/19 at 20:00 Morphine Sulfate (morphine) 2 mg Q4H PRN IV .SEVERE PAIN 7-10 Last administered on 05/05/19at 11:58; Admin Dose 2 MG; Start 04/23/19 at 20:00 Docusate Sodium (Colace) 100 mg Q12H PRN PO .CONSTIPATION; Start 04/23/19 at 20:00 Bisacodyl (Dulcolax) 5 mg DAILY PRN PO .CONSTIPATION; Start 04/23/19 at 20:00 Heparin Sodium (Porcine) (Heparin (5000 Units/1ml)) 5,000 unit Q8 SC Last adm inistered on 05/08/19at 14:49; Admin Dose 5,000 UNIT; Start 04/23/19 at 22:00 Lactobacillus Acidophilus (Florajen3 Capsule) 1 each BID PO Last administered on 05/08/19at 08:04; Admin Dose 1 EACH; Start 04/23/19 at 21:00 Miscellaneous Information 1 ea NOTE XX ; Start 04/23/19 at 20:30 Glucose (Glutose) 15 gm Q15M PRN PO DECREASED GLUCOSE; Start 04/23/19 at 20:30 Glucose (Glutose) 22.5 gm Q15M PRN PO DECREASED GLUCOSE; Start 04/23/19 at 20:30 Dextrose (D50w Syringe) 25 ml Q15M PRN IV DECREASED GLUCOSE; Start 04/23/19 at 20:30 Dextrose (D50w Syringe) 50 ml Q15M PRN IV DECREASED GLUCOSE; Start 04/23/19 at 20:30 Glucagon (Glucagen) 1 mg Q15M PRN IM DECREASED GLUCOSE; Start 04/23/19 at 20:30 Glucose (Glutose) 15 gm Q15M PRN BUCCAL DECREASED GLUCOSE; Start 04/23/19 at 20:30 Miscellaneous Information (Pending [facility] Order For Wound Care) This patient munguia... PRN PRN XX WOUND CARE; Start 04/24/19 at 05:00 Amlodipine Besylate (Norvasc) 10 mg DAILY PO Last administered on 05/08/19at 08:04; Admin Dose 10 MG; Start 04/29/19 at 09:00 Hydralazine HCl (Apresoline) 10 mg Q4H PRN IV sbp >160 Last administered on 04/30/19at 20:52; Admin Dose 10 MG; Start 04/28/19 at 11:00 Pantoprazole (Protonix Tab) 40 mg DAILY@06 PO Last administered on 05/08/19at 05:26; Admin Dose 40 MG; Start 04/29/19 at 06:00 Lisinopril (Zestril) 10 mg DAILY PO Last administered on 05/08/19at 08:04; Admin Dose 10 MG; Start 04/29/19 at 09:30 Hyoscyamine (Levsin (Sl)) 0.125 mg Q4H PRN SL ab cramping; Start 04/29/19 at 12:30 Loperamide HCl (Imodium Cap) 2 mg BID PRN PO DIARRHEA; Start 04/29/19 at 12:30 Polyethylene Glycol (Miralax) 17 gm DAILY PRN PO constipation; Start 05/01/19 at 17:00 Metoclopramide HCl (Reglan) 5 mg Q6 IV Last administered on 05/08/19at 12:53; Admin Dose 5 MG; Start 05/01/19 at 18:00 Sodium Chloride 1,000 ml @ 50 mls/hr Q20H IV Last administered on 05/08/19at 12:57; Admin Dose 50 MLS/HR; Start 05/03/19 at 09:30 Diagnostic Test (Pha) (Accu-Chek) 1 ea 02 XX ; Start 05/05/19 at 02:00 Insulin Aspart (Novolog Insulin Pen) NOVOLOG *MILD* ALGORITHM WITH MEALS BEDTIME SC ; Start 05/04/19 at 12:00 Scopolamine (Transderm-Scop) 1 patch Q72H TRANSDERM Last administered on 05/08/19at 14:49; Admin Dose 1 PATCH; Start 05/05/19 at 14:30 Megestrol Acetate (Megace Susp) 400 mg BID PO Last administered on 05/08/19at 08:04; Admin Dose 400 MG; Start 05/06/19 at 21:00 Prochlorperazine (Compazine Inj) 5 mg Q6H PRN IV NAUSEA AND/OR VOMITING; Start 05/06/19 at 14:30 Nystatin (Nystatin Powder) 1 applic TID TOP Last administered on 05/08/19at 12:53; Admin Dose 1 APPLIC; Start 05/06/19 at 21:00 ANA MARIA ZULETA NP May 08, 2019 15:20
[2019-05-08 20:00] VITALS: BP 124/60; PULSE 85; RESP 18
[2019-05-08] MEDS: ATORVASTATIN 40 MG TAB PO SCH (21:09)
[2019-05-08] MEDS: ACETAMINOPHEN 325 MG TAB PO PRN (21:11)
[2019-05-09] MEDS: METOCLOPRAMIDE 10 MG INJ IV SCH ×4 (00:28→17:31)
[2019-05-09 02:00] VITALS: BP_SYST 103; BP_SYST 127; BP_DIAS 52; BP_DIAS 59; PULSE 74; PULSE 79; RESP 16; RESP 18
[2019-05-09] MEDS: ACCU-CHEK XX SCH ×3 (02:00→20:58)
[2019-05-09] MEDS: PANTOPRAZOLE (EC) 40 MG TAB PO SCH (06:07)
[2019-05-09] MEDS: HEPARIN 5,000 UNIT/1 ML VIAL SC SCH ×3 (06:08→22:17)
[2019-05-09] MEDS: SOD CHLORIDE 0.9% 1,000 ML IV SCH ×2 (06:16→12:23)
[2019-05-09] MEDS: INSULIN ASPART [NOVOLOG] 3 ML PEN SC SCH ×4 (08:00→20:57)
[2019-05-09 08:13] VITALS: BP 177/72; PULSE 67; RESP 24
[2019-05-09] MEDS: AMLODIPINE 10 MG TAB PO SCH (08:32)
[2019-05-09] MEDS: ESCITALOPRAM 10 MG TAB PO SCH (08:32)
[2019-05-09] MEDS: LISINOPRIL 10 MG TAB PO SCH (08:32)
[2019-05-09] MEDS: L ACIDOPHIL/B LACTIS/B LONGUM CAPSULE PO SCH ×2 (08:32→20:57)
[2019-05-09] MEDS: MEGESTROL (40 MG/ML) 10ML CUP PO SCH ×2 (08:32→20:57)
[2019-05-09] MEDS: NYSTATIN 30 GM POWDER BTL TOP SCH ×3 (08:33→20:57)
[2019-05-09 10:39] VITALS: BP 131/64; PULSE 83
--- NOTE | 2019-05-09 11:21 | CONS ---
Assessment/Plan Assessment/Plan Hospital Course (Demo Recall) All noted, no acute events Tm 99.6 Urine culture on April 17 grew Klebsiella pneumoniae and E. coli both susceptible to cefotaxime and Ancef also tobramycin Antimicrobials: none Physical examination: Obese well-developed elderly woman who is awake in no distress. Head atraumatic normocephalic sclera nonicteric vehicle mucosa dry neck is obese chest rise symmetrical breath sounds diminished bases heart S1-S2 abdomen soft bowel sounds present extremities without cyanosis Assessment: 1. Persistent leukocytosis 1. Status post UTI 2. Morbid obesity 3. Diabetes 4. Hypertension 5. Diarrhea, C. difficile negative 6. Persistent nausea Plan: Clinically unchanged, off abx, pending WBC scan, gastroenterology recommendations Consultation Date/Type/Reason Admit Date/Time Apr 23, 2019 at 18:26 Initial Consult Date Type of Consult id Date/Time of Note DATE: 05/09/19 TIME: 11:20 Exam/Review of Systems Exam Vitals Vital Signs Date Temp Pulse Resp B/P (MAP) Pulse Ox O2 O2 Flow FiO2 Time Delivery Rate 05/09/19 83 131/64 10:39 (86) 05/09/19 98.1 24 96 08:13 05/07/19 Room Air 14:12 Intake and Output 05/08/19 05/08/19 05/09/19 1515:00 23:00 07:00 IntakeIntake Total 780 ml 250 ml 750 ml BalanceBalance 780 ml 250 ml 750 ml Results Result Diagram: 05/07/19 0517 05/07/19 0517 Results 24hrs Laboratory Tests Test 05/08/19 12:27 05/08/19 14:51 05/08/19 17:41 05/08/19 21:05 Bedside Glucose 94 94 101 Urine Color STRAW Urine Clarity CLEAR Urine pH 6.0 Urine Specific [place] 1.005 Urine Ketones NEGATIVE Urine Nitrite NEGATIVE Urine Bilirubin NEGATIVE Urine Urobilinogen NEGATIVE Urine Leukocyte Esterase NEGATIVE Urine Hemoglobin NEGATIVE Urine Glucose NEGATIVE Urine Total Protein NEGATIVE Test 05/09/19 08:30 Bedside Glucose 83 Medications Medication Current Medications Atorvastatin Calcium (Lipitor) 40 mg QHS PO Last administered on 05/08/19at 21:09; Admin Dose 40 MG; Start 04/23/19 at 21:00 Clonidine (Catapres) 0.1 mg TID PRN PO ELEVATED BLOOD PRESSURE Last administered on 6/21/19at 22:48; Admin Dose 0.1 MG; Start 04/23/19 at 20:00 Escitalopram Oxalate (Lexapro) 10 mg DAILY PO Last administered on 05/09/19 08:32; Admin Dose 10 MG; Start 04/24/19 at 09:00 IV Flush (NS 3 ml) 3 ml PER PROTOCOL IV ; Start 04/23/19 at 20:00 Ondansetron HCl (Zofran Inj) 4 mg Q6H PRN IV NAUSEA/VOMITING Last administered on 05/08/19 10:00; Admin Dose 4 MG; Start 04/23/19 at 20:00 Acetaminophen (Tylenol Tab) 650 mg Q6H PRN PO .PAIN 1-3 OR TEMP Last administered on 05/08/19 21:11; Admin Dose 650 MG; Start 04/23/19 at 20:00 Morphine Sulfate (morphine) 2 mg Q4H PRN IV .SEVERE PAIN 7-10 Last administered on 05/05/19 11:58; Admin Dose 2 MG; Start 04/23/19 at 20:00 Docusate Sodium (Colace) 100 mg Q12H PRN PO .CONSTIPATION; Start 04/23/19 at 20:00 Bisacodyl (Dulcolax) 5 mg DAILY PRN PO .CONSTIPATION; Start 04/23/19 at 20:00 Heparin Sodium (Porcine) (Heparin (5000 Units/1ml)) 5,000 unit Q8 SC Last administered on 05/09/19 06:08; Admin Dose 5,000 UNIT; Start 04/23/19 at 22:00 Lactobacillus Acidophilus (Florajen3 Capsule) 1 each BID PO Last administered o n 05/09/19 08:32; Admin Dose 1 EACH; Start 04/23/19 at 21:00 Miscellaneous Information 1 ea NOTE XX ; Start 04/23/19 at 20:30 Glucose (Glutose) 15 gm Q15M PRN PO DECREASED GLUCOSE; Start 04/23/19 at 20:30 Glucose (Glutose) 22.5 gm Q15M PRN PO DECREASED GLUCOSE; Start 04/23/19 at 20:30 Dextrose (D50w Syringe) 25 ml Q15M PRN IV DECREASED GLUCOSE; Start 04/23/19 at 20:30 Dextrose (D50w Syringe) 50 ml Q15M PRN IV DECREASED GLUCOSE; Start 04/23/19 at 20:30 Glucagon (Glucagen) 1 mg Q15M PRN IM DECREASED GLUCOSE; Start 04/23/19 at 20:30 Glucose (Glutose) 15 gm Q15M PRN BUCCAL DECREASED GLUCOSE; Start 04/23/19 at 20:30 Miscellaneous Information (Pending [facility] Order For Wound Care) This patient munguia... PRN PRN XX WOUND CARE; Start 04/24/19 at 05:00 Amlodipine Besylate (Norvasc) 10 mg DAILY PO Last administered on 05/09/19at 08:32; Admin Dose 10 MG; Start 04/29/19 at 09:00 Hydralazine HCl (Apresoline) 10 mg Q4H PRN IV sbp >160 Last administered on 04/30/19at 20:52; Admin Dose 10 MG; Start 04/28/19 at 11:00 Pantoprazole (Protonix Tab) 40 mg DAILY@06 PO Last administered on 05/09/19at 06:07; Admin Dose 40 MG; Start 04/29/19 at 06:00 Lisinopril (Zestril) 10 mg DAILY PO Last administered on 05/09/19at 08:32; Admin Dose 10 MG; Start 04/29/19 at 09:30 Hyoscyamine (Levsin (Sl)) 0.125 mg Q4H PRN SL ab cramping; Start 04/29/19 at 12:30 Loperamide HCl (Imodium Cap) 2 mg BID PRN PO DIARRHEA; Start 04/29/19 at 12:30 Polyethylene Glycol (Miralax) 17 gm DAILY PRN PO constipation; Start 05/01/19 at 17:00 Metoclopramide HCl (Reglan) 5 mg Q6 IV Last administered on 05/09/19at 06:07; Admin Dose 5 MG; Start 05/01/19 at 18:00 Sodium Chloride 1,000 ml @ 50 mls/hr Q20H IV Last administered on 05/09/19at 06:16; Admin Dose 50 MLS/HR; Start 05/03/19 at 09:30 Diagnostic Test (Pha) (Accu-Chek) 1 ea 02 XX ; Start 05/05/19 at 02:00 Insulin Aspart (Novolog Insulin Pen) NOVOLOG *MILD* ALGORITHM WITH MEALS BEDTIME SC ; Start 05/04/19 at 12:00 Scopolamine (Transderm-Scop) 1 patch Q72H TRANSDERM Last administered on 05/08/19at 14:49; Admin Dose 1 PATCH; Start 05/05/19 at 14:30 Megestrol Acetate (Megace Susp) 400 mg BID PO Last administered on 05/09/19at 08:32; Admin Dose 400 MG; Start 05/06/19 at 21:00 Prochlorperazine (Compazine Inj) 5 mg Q6H PRN IV NAUSEA AND/OR VOMITING; Start 05/06/19 at 14:30 Nystatin (Nystatin Powder) 1 applic TID TOP Last administered on 05/09/19 08:33; Admin Dose 1 APPLIC; Start 05/06/19 at 21:00 ANA MARIA ZULETA NP May 09, 2019 11:20
--- NOTE | 2019-05-09 12:00 | PN ---
Date/Time of Note Date/Time of Note DATE: 05/09/19 TIME: 11:58 Assessment/Plan VTE Prophylaxis Risk score (from Ns)>0 risk: 7 SCD applied (from Ns): Yes Pharmacological prophylaxis: other (scds) Lines/Catheters [facility] Peripheral IV Urinary Cath still in place: No Assessment/Plan Hospital Course Assessment: Nausea/vomiting- unclear etiology EGD 04/28/2019 Moderate distal esophagitis. Moderate gastritis. Rule out internal infection. Biopsies obtained. Evidence of previous gastrostomy tube site well-healed. Otherwise normal EGD. Gastric biopsies-negative for H. pylori organisms, no dysplasia or intestinal metaplasia is identified, patchy minimal chronic inflammation Diarrhea- possibly 2/2 to antibiotics - resolved Colonoscopy 04/28/2019 3 mm sessile polyp in the ascending colon, ablated. Moderate diverticulosis of the colon. Moderate-sized internal and large external hemorrhoids. Otherwise normal colonoscopy Ascending colon polyp, biopsy: tubular adenoma Repeat colonoscopy in 5 years -Stool studies COLIFORM, ELYSSA ALBICANS -CDIFF- Negative -O&P- Negative Normocytic anemia Abdominal cramping- improved UTI -ID following DM Dyslipidemia HTN Leukocytosis Plan: Calorie count- x 3days - in progress- pending results- will decide next step- pt may require PEG again Continue megace for appetite stimulation/Continue compazine for nausea/scopolamine patch Levsin/Continue PPI/Probiotics Patient seen in collaboration with Dr. Vasquez Subjective: Course reviewed with nursing staff Patient interviewed and examined All labs, imaging and other results reviewed Despite current medication regimen patient continues to have poor po intake with nausea- she denies vomiting at this time. Discussed on-going calorie count. Discussed possibility of PEG placement. Pt is very open to the idea and feels it is a good option. Discussed unclear etiology of nausea- and even with PEG placement she may continue to have nausea- Patient states she believes she will be ok, as she had PEG before and her previous nausea post cholecystectomy may years ago eventually resolved. Physical exam: Constitutional: alert, oriented, obese Psych: no complaints Head: normocephalic, atraumatic Eyes: nl conjunctiva ENMT: nl external ears & nose, nl lips & teeth Neck: supple, non-tender Respiratory: normal air movement Gastrointestinal: soft, other (morbidly obese, rotund abdomen, prior g tube scar) Musculoskeletal: nl extremities to inspection Result Diagram: 6/30/19 0517 05/07/19 0517 Results 24hrs Laboratory Tests Test 05/08/19 12:27 05/08/19 14:51 05/08/19 17:41 05/08/19 21:05 Bedside Glucose 94 94 101 Urine Color STRAW Urine Clarity CLEAR Urine pH 6.0 Urine Specific [place] 1.005 Urine Ketones NEGATIVE Urine Nitrite NEGATIVE Urine Bilirubin NEGATIVE Urine Urobilinogen NEGATIVE Urine Leukocyte Esterase NEGATIVE Urine Hemoglobin NEGATIVE Urine Glucose NEGATIVE Urine Total Protein NEGATIVE Test 05/09/19 08:30 Bedside Glucose 83 Exam/Review of Systems Exam Vitals Vital Signs Date Temp Pulse Resp B/P (MAP) Pulse Ox O2 O2 Flow FiO2 Time Delivery Rate 05/09/19 83 131/64 10:39 (86) 05/09/19 98.1 24 96 08:13 05/07/19 Room Air 14:12 Intake and Output 05/08/19 05/08/19 05/09/19 1515:00 23:00 07:00 IntakeIntake Total 780 ml 250 ml 750 ml BalanceBalance 780 ml 250 ml 750 ml Results Results 24hrs Laboratory Tests Test 05/08/19 12:27 05/08/19 14:51 05/08/19 17:41 05/08/19 21:05 Bedside Glucose 94 94 101 Urine Color STRAW Urine Clarity CLEAR Urine pH 6.0 Urine Specific [place] 1.005 Urine Ketones NEGATIVE Urine Nitrite NEGATIVE Urine Bilirubin NEGATIVE Urine Urobilinogen NEGATIVE Urine Leukocyte Esterase NEGATIVE Urine Hemoglobin NEGATIVE Urine Glucose NEGATIVE Urine Total Protein NEGATIVE Test 05/09/19 08:30 Bedside Glucose 83 Medications Medication Current Medications Atorvastatin Calcium (Lipitor) 40 mg QHS PO Last administered on 05/08/19at 21:09; Admin Dose 40 MG; Start 04/23/19 at 21:00 Clonidine (Catapres) 0.1 mg TID PRN PO ELEVATED BLOOD PRESSURE Last administered on 04/28/19at 22:48; Admin Dose 0.1 MG; Start 04/23/19 at 20:00 Escitalopram Oxalate (Lexapro) 10 mg DAILY PO Last administered on 05/09/19at 08:32; Admin Dose 10 MG; Start 04/24/19 at 09:00 IV Flush (NS 3 ml) 3 ml PER PROTOCOL IV ; Start 04/23/19 at 20:00 Ondansetron HCl (Zofran Inj) 4 mg Q6H PRN IV NAUSEA/VOMITING Last administered on 05/08/19at 10:00; Admin Dose 4 MG; Start 04/23/19 at 20:00 Acetaminophen (Tylenol Tab) 650 mg Q6H PRN PO .PAIN 1-3 OR TEMP Last administered on 05/08/19at 21:11; Admin Dose 650 MG; Start 04/23/19 at 20:00 Morphine Sulfate (morphine) 2 mg Q4H PRN IV .SEVERE PAIN 7-10 Last administered on 05/05/19at 11:58; Admin Dose 2 MG; Start 04/23/19 at 20:00 Docusate Sodium (Colace) 100 mg Q12H PRN PO .CONSTIPATION; Start 04/23/19 at 20:00 Bisacodyl (Dulcolax) 5 mg DAILY PRN PO .CONSTIPATION; Start 04/23/19 at 20:00 Heparin Sodium (Porcine) (Heparin (5000 Units/1ml)) 5,000 unit Q8 SC Last a dministered on 05/09/19at 06:08; Admin Dose 5,000 UNIT; Start 04/23/19 at 22:00 Lactobacillus Acidophilus (Florajen3 Capsule) 1 each BID PO Last administered on 05/09/19at 08:32; Admin Dose 1 EACH; Start 04/23/19 at 21:00 Miscellaneous Information 1 ea NOTE XX ; Start 04/23/19 at 20:30 Glucose (Glutose) 15 gm Q15M PRN PO DECREASED GLUCOSE; Start 04/23/19 at 20:30 Glucose (Glutose) 22.5 gm Q15M PRN PO DECREASED GLUCOSE; Start 04/23/19 at 20:30 Dextrose (D50w Syringe) 25 ml Q15M PRN IV DECREASED GLUCOSE; Start 04/23/19 at 20:30 Dextrose (D50w Syringe) 50 ml Q15M PRN IV DECREASED GLUCOSE; Start 04/23/19 at 20:30 Glucagon (Glucagen) 1 mg Q15M PRN IM DECREASED GLUCOSE; Start 04/23/19 at 20:30 Glucose (Glutose) 15 gm Q15M PRN BUCCAL DECREASED GLUCOSE; Start 04/23/19 at 20:30 Miscellaneous Information (Pending [facility] Order For Wound Care) This patient munguia... PRN PRN XX WOUND CARE; Start 04/24/19 at 05:00 Amlodipine Besylate (Norvasc) 10 mg DAILY PO Last administered on 05/09/19 08:32; Admin Dose 10 MG; Start 04/29/19 at 09:00 Hydralazine HCl (Apresoline) 10 mg Q4H PRN IV sbp >160 Last administered on 04/30/19at 20:52; Admin Dose 10 MG; Start 04/28/19 at 11:00 Pantoprazole (Protonix Tab) 40 mg DAILY@06 PO Last administered on 05/09/19 06:07; Admin Dose 40 MG; Start 04/29/19 at 06:00 Lisinopril (Zestril) 10 mg DAILY PO Last administered on 05/09/19 08:32; Admin Dose 10 MG; Start 04/29/19 at 09:30 Hyoscyamine (Levsin (Sl)) 0.125 mg Q4H PRN SL ab cramping; Start 04/29/19 at 12:30 Loperamide HCl (Imodium Cap) 2 mg BID PRN PO DIARRHEA; Start 04/29/19 at 12:30 Polyethylene Glycol (Miralax) 17 gm DAILY PRN PO constipation; Start 05/01/19 at 17:00 Metoclopramide HCl (Reglan) 5 mg Q6 IV Last administered on 05/09/19at 06:07; Admin Dose 5 MG; Start 05/01/19 at 18:00 Sodium Chloride 1,000 ml @ 50 mls/hr Q20H IV Last administered on 05/09/19at 06:16; Admin Dose 50 MLS/HR; Start 05/03/19 at 09:30 Diagnostic Test (Pha) (Accu-Chek) 1 ea 02 XX ; Start 05/05/19 at 02:00 Insulin Aspart (Novolog Insulin Pen) NOVOLOG *MILD* ALGORITHM WITH MEALS BEDTIME SC ; Start 05/04/19 at 12:00 Scopolamine (Transderm-Scop) 1 patch Q72H TRANSDERM Last administered on 05/08/19at 14:49; Admin Dose 1 PATCH; Start 05/05/19 at 14:30 Megestrol Acetate (Megace Susp) 400 mg BID PO Last administered on 05/09/19 08:32; Admin Dose 400 MG; Start 05/06/19 at 21:00 Prochlorperazine (Compazine Inj) 5 mg Q6H PRN IV NAUSEA AND/OR VOMITING; Start 05/06/19 at 14:30 Nystatin (Nystatin Powder) 1 applic TID TOP Last administered on 05/09/19at 08:33; Admin Dose 1 APPLIC; Start 05/06/19 at 21:00 BALTA HENDERSON May 09, 2019 12:00
[2019-05-09 14:00] VITALS: BP 127/59; PULSE 74; RESP 16
--- NOTE | 2019-05-09 14:44 | PN ---
Date/Time of Note Date/Time of Note DATE: 05/09/19 TIME: 14:42 Assessment/Plan VTE Prophylaxis Risk score (from Ns)>0 risk: 7 SCD applied (from Ns): Yes Pharmacological prophylaxis: heparin Lines/Catheters IV [facility] ([facility] Peripheral IV Urinary Cath still in place: No Assessment/Plan Hospital Course Assessment and plan 1. Nausea and vomiting acute on chronic. - Antiemetics as needed. - GI following. - Continue on PPI and Carafate. - Follow-up with GI if need for further recommendations- possible PEG if not improved - Start PPN 2. UTI. - Resolved at present. - ID consult following. 3. Diarrhea. - Resolved. - On probiotics. 4. Skin tear. - Continue wound care. 5. Diabetes. - Continue insulin regimen. Adjust as needed 6. Hypertension. - Continue antihypertensives. Adjust as needed. Disposition and plan. Still unable to tolerate oral intake. Continue with antiemetics. Start on PPN. Possible PEG placement if not improving. continue to monitor Discussed POC with Dr. Hewitt Result Diagram: 05/07/1951605/07/19 0517 Results 24hrs Laboratory Tests Test 05/08/19 14:51 05/08/19 17:41 05/08/19 21:05 05/09/19 08:30 Urine Color STRAW Urine Clarity CLEAR Urine pH 6.0 Urine Specific [place] 1.005 Urine Ketones NEGATIVE Urine Nitrite NEGATIVE Urine Bilirubin NEGATIVE Urine Urobilinogen NEGATIVE Urine Leukocyte Esterase NEGATIVE Urine Hemoglobin NEGATIVE Urine Glucose NEGATIVE Urine Total Protein NEGATIVE Bedside Glucose 94 101 83 Test 05/09/19 12:22 Bedside Glucose 91 Subjective 24 Hr Interval Summary Free Text/Dictation still reports poor oral intake Exam/Review of Systems Exam Vitals Vital Signs Date Temp Pulse Resp B/P (MAP) Pulse Ox O2 O2 Flow FiO2 Time Delivery Rate 05/09/19 98.4 74 16 127/59 100 14:00 (81) 05/07/19 Room Air 14:12 Intake and Output 05/08/19 05/08/19 05/09/19 1515:00 23:00 07:00 IntakeIntake Total 780 ml 250 ml 750 ml BalanceBalance 780 ml 250 ml 750 ml Exam Constitutional: alert, obese Neck: supple, non-tender Respiratory: clear to auscultation, normal air movement Cardiovascular: other (regular rate ) Gastrointestinal: soft, tender (minimally on lower abdomen ) Neurological: nl mental status, nl speech Results Results 24hrs Laboratory Tests Test 05/08/19 14:51 05/08/19 17:41 05/08/19 21:05 05/09/19 08:30 Urine Color STRAW Urine Clarity CLEAR Urine pH 6.0 Urine Specific [place] 1.005 Urine Ketones NEGATIVE Urine Nitrite NEGATIVE Urine Bilirubin NEGATIVE Urine Urobilinogen NEGATIVE Urine Leukocyte Esterase NEGATIVE Urine Hemoglobin NEGATIVE Urine Glucose NEGATIVE Urine Total Protein NEGATIVE Bedside Glucose 94 101 83 Test 05/09/19 12:22 Bedside Glucose 91 Medications Medication Current Medications Atorvastatin Calcium (Lipitor) 40 mg QHS PO Last administered on 05/08/19 21:09; Admin Dose 40 MG; Start 04/23/19 at 21:00 Clonidine (Catapres) 0.1 mg TID PRN PO ELEVATED BLOOD PRESSURE Last administered on 04/28/19 22:48; Admin Dose 0.1 MG; Start 04/23/19 at 20:00 Escitalopram Oxalate (Lexapro) 10 mg DAILY PO Last administered on 05/09/19 08:32; Admin Dose 10 MG; Start 04/24/19 at 09:00 IV Flush (NS 3 ml) 3 ml PER PROTOCOL IV ; Start 04/23/19 at 20:00 Ondansetron HCl (Zofran Inj) 4 mg Q6H PRN IV NAUSEA/VOMITING Last administered on 05/08/19 10:00; Admin Dose 4 MG; Start 04/23/19 at 20:00 Acetaminophen (Tylenol Tab) 650 mg Q6H PRN PO .PAIN 1-3 OR TEMP Last administered on 05/08/19 21:11; Admin Dose 650 MG; Start 04/23/19 at 20:00 Morphine Sulfate (morphine) 2 mg Q4H PRN IV .SEVERE PAIN 7-10 Last administered on 05/05/19 11:58; Admin Dose 2 MG; Start 04/23/19 at 20:00 Docusate Sodium (Colace) 100 mg Q12H PRN PO .CONSTIPATION; Start 04/23/19 at 20:00 Bisacodyl (Dulcolax) 5 mg DAILY PRN PO .CONSTIPATION; Start 04/23/19 at 20:00 Heparin Sodium (Porcine) (Heparin (5000 Units/1ml)) 5,000 unit Q8 SC Last administered on 05/09/19at 14:29; Admin Dose 5,000 UNIT; Start 04/23/19 at 22:00 Lactobacillus Acidophilus (Florajen3 Capsule) 1 each BID PO Last administered on 05/09/19 08:32; Admin Dose 1 EACH; Start 04/23/19 at 21:00 Miscellaneous Information 1 ea NOTE XX ; Start 04/23/19 at 20:30 Glucose (Glutose) 15 gm Q15M PRN PO DECREASED GLUCOSE; Start 04/23/19 at 20:30 Glucose (Glutose) 22.5 gm Q15M PRN PO DECREASED GLUCOSE; Start 04/23/19 at 20:30 Dextrose (D50w Syringe) 25 ml Q15M PRN IV DECREASED GLUCOSE; Start 04/23/19 at 20:30 Dextrose (D50w Syringe) 50 ml Q15M PRN IV DECREASED GLUCOSE; Start 04/23/19 at 20:30 Glucagon (Glucagen) 1 mg Q15M PRN IM DECREASED GLUCOSE; Start 04/23/19 at 20:30 Glucose (Glutose) 15 gm Q15M PRN BUCCAL DECREASED GLUCOSE; Start 04/23/19 at 20:30 [facility] This patient munguia... PRN PRN XX WOUND CARE; Start 04/24/19 at 05:00 Amlodipine Besylate (Norvasc) 10 mg DAILY PO Last administered on 05/09/19 08:32; Admin Dose 10 MG; Start 04/29/19 at 09:00 Hydralazine HCl (Apresoline) 10 mg Q4H PRN IV sbp >160 Last administered on 04/30/19at 20:52; Admin Dose 10 MG; Start 04/28/19 at 11:00 Pantoprazole (Protonix Tab) 40 mg DAILY@06 PO Last administered on 05/09/19 06:07; Admin Dose 40 MG; Start 04/29/19 at 06:00 Lisinopril (Zestril) 10 mg DAILY PO Last administered on 05/09/19 08:32; Admin Dose 10 MG; Start 04/29/19 at 09:30 Hyoscyamine (Levsin (Sl)) 0.125 mg Q4H PRN SL ab cramping; Start 04/29/19 at 12:30 Loperamide HCl (Imodium Cap) 2 mg BID PRN PO DIARRHEA; Start 04/29/19 at 12:30 Polyethylene Glycol (Miralax) 17 gm DAILY PRN PO constipation; Start 05/01/19 at 17:00 Metoclopramide HCl (Reglan) 5 mg Q6 IV Last administered on 05/09/19at 12:23; Admin Dose 5 MG; Start 05/01/19 at 18:00 Sodium Chloride 1,000 ml @ 50 mls/hr Q20H IV Last administered on 05/09/19at 06:16; Admin Dose 50 MLS/HR; Start 05/03/19 at 09:30 Diagnostic Test (Pha) (Accu-Chek) 1 ea 02 XX ; Start 05/05/19 at 02:00 Insulin Aspart (Novolog Insulin Pen) NOVOLOG *MILD* ALGORITHM WITH MEALS BEDTIME SC ; Start 05/04/19 at 12:00 Scopolamine (Transderm-Scop) 1 patch Q72H TRANSDERM Last administered on 05/08/19at 14:49; Admin Dose 1 PATCH; Start 05/05/19 at 14:30 Megestrol Acetate (Megace Susp) 400 mg BID PO Last administered on 05/09/19at 08:32; Admin Dose 400 MG; Start 05/06/19 at 21:00 Prochlorperazine (Compazine Inj) 5 mg Q6H PRN IV NAUSEA AND/OR VOMITING; Start 05/06/19 at 14:30 Nystatin (Nystatin Powder) 1 applic TID TOP Last administered on 05/09/19at 12:23; Admin Dose 1 APPLIC; Start 05/06/19 at 21:00 JOSEFINA LUGO NP May 09, 2019 14:44
[2019-05-09] MEDS ORDERED: hydrALAzine 20 MG INJ IV PRN (15:30)
[2019-05-09 20:00] VITALS: BP 129/60; PULSE 80; RESP 18
[2019-05-09] MEDS: ATORVASTATIN 40 MG TAB PO SCH (20:57)
[2019-05-10] MEDS: ACCU-CHEK XX SCH ×7 (00:08→21:00)
[2019-05-10] MEDS: SOD CHLORIDE 0.9% 1,000 ML IV SCH (01:49)
[2019-05-10 02:00] VITALS: BP 128/59; PULSE 78; RESP 18
[2019-05-10] MEDS ORDERED: MAGNESIUM SULFATE 3 GM in DEXTROSE 5% 100 ML IVPB ONE (03:00)
[2019-05-10] MEDS: METOCLOPRAMIDE 10 MG INJ IV SCH ×5 (06:17→23:43)
[2019-05-10] MEDS: PANTOPRAZOLE (EC) 40 MG TAB PO SCH (06:17)
[2019-05-10] MEDS: HEPARIN 5,000 UNIT/1 ML VIAL SC SCH ×3 (06:18→21:58)
[2019-05-10 08:00] VITALS: BP 135/60; PULSE 73; RESP 16
[2019-05-10] MEDS: INSULIN ASPART [NOVOLOG] 3 ML PEN SC SCH ×4 (08:00→20:55)
[2019-05-10] MEDS: ESCITALOPRAM 10 MG TAB PO SCH (08:08)
[2019-05-10] MEDS: L ACIDOPHIL/B LACTIS/B LONGUM CAPSULE PO SCH ×2 (08:08→20:54)
[2019-05-10] MEDS: MEGESTROL (40 MG/ML) 10ML CUP PO SCH (08:08)
[2019-05-10] MEDS: AMLODIPINE 10 MG TAB PO SCH (08:10)
[2019-05-10] MEDS: NYSTATIN 30 GM POWDER BTL TOP SCH ×3 (08:10→21:57)
[2019-05-10] MEDS: LISINOPRIL 10 MG TAB PO SCH (08:10)
[2019-05-10] MEDS: ACETAMINOPHEN 325 MG TAB PO PRN (09:38)
[2019-05-10 14:00] VITALS: BP 128/68; PULSE 74; RESP 20
--- NOTE | 2019-05-10 14:35 | CONS ---
Assessment/Plan Assessment/Plan Hospital Course (Demo Recall) All noted, no acute events Urine culture on April 17 grew Klebsiella pneumoniae and E. coli both susceptible to cefotaxime and Ancef also tobramycin Antimicrobials: none Physical examination: Obese well-developed elderly woman who is awake in no distress. Head atraumatic normocephalic sclera nonicteric vehicle mucosa dry neck is obese chest rise symmetrical breath sounds diminished bases heart S1-S2 abdomen soft bowel sounds present extremities without cyanosis Assessment: 1. Persistent leukocytosis, no evidence for acute infectious process, WBC scan negative 1. Status post UTI 2. Morbid obesity 3. Diabetes 4. Hypertension 5. Diarrhea, C. difficile negative 6. Persistent nausea Plan: Clinically unchanged, stable off abx, neg WBC scan, f/u gastroenterology recommendations Consultation Date/Type/Reason Admit Date/Time Apr 23, 2019 at 18:26 Initial Consult Date Type of Consult id Date/Time of Note DATE: 05/10/19 TIME: 14:35 Exam/Review of Systems Exam Vitals Vital Signs Date Temp Pulse Resp B/P (MAP) Pulse Ox O2 O2 Flow FiO2 Time Delivery Rate 05/10/19 98.4 73 16 135/60 97 08:00 (85) 05/07/19 Room Air 14:12 Intake and Output 05/09/19 05/09/19 05/10/19 1414:59 22:59 06:59 IntakeIntake Total 550 ml 525 ml BalanceBalance 550 ml 525 ml Results Result Diagram: 05/10/19 0534 05/10/19 0534 Results 24hrs Laboratory Tests Test 05/09/19 16:03 05/09/19 17:23 05/09/19 20:56 05/10/19 05:34 Sodium Level 136 137 Potassium Level 3.7 3.7 Chloride Level 109 110 Carbon Dioxide Level 20 L 20 L Anion Gap 7 7 Blood Urea Nitrogen 6 L 5 L Creatinine 0.97 0.96 Est Glomerular Filtrat 58 L 58 L Rate mL/min Glucose Level 89 85 Calcium Level 10.1 9.8 Phosphorus Level 2.9 3.1 Magnesium Level 1.4 L 1.7 Total Bilirubin 0.3 0.3 Direct Bilirubin 0.00 0.00 Indirect Bilirubin 0.3 0.3 Aspartate Amino 14 L 15 Transf (AST/SGOT) Alanine 20 19 Aminotransferase (ALT/SG PT) Alkaline Phosphatase 85 73 Total Protein 5.4 L 4.7 L Albumin 2.5 L 2.2 L Globulin 2.90 Albumin/Globulin Ratio 0.86 Prealbumin 3.4 L Triglycerides Level 199 H Bedside Glucose 78 94 White Blood Count 13.1 H Red Blood Count 3.29 L Hemoglobin 8.5 L Hematocrit 27.1 L Mean Corpuscular Volume 82.4 Mean Corpuscular 25.8 L Hemoglobin Mean Corpuscular 31.4 L Hemoglobin Concent Red Cell Distribution 18.0 H Width Platelet Count 391 Mean Platelet Volume 9.3 Immature Granulocytes % 4.100 H Neutrophils % 52.4 Lymphocytes % 17.2 Monocytes % 7.9 Eosinophils % 17.8 H Basophils % 0.6 Nucleated Red Blood 0.0 Cells % Immature Granulocytes # 0.540 H Neutrophils # 6.9 Lymphocytes # 2.3 Monocytes # 1.0 H Eosinophils # 2.3 H Basophils # 0.1 Nucleated Red Blood 0.0 Cells # Test 05/10/19 07:58 05/10/19 11:58 Bedside Glucose 93 85 Medications Medication Current Medications Atorvastatin Calcium (Lipitor) 40 mg QHS PO Last administered on 05/09/19 20:57; Admin Dose 40 MG; Start 04/23/19 at 21:00 Clonidine (Catapres) 0.1 mg TID PRN PO ELEVATED BLOOD PRESSURE Last administered on 04/28/19 22:48; Admin Dose 0.1 MG; Start 04/23/19 at 20:00 Escitalopram Oxalate (Lexapro) 10 mg DAILY PO Last administered on 05/10/19 08:08; Admin Dose 10 MG; Start 04/24/19 at 09:00 IV Flush (NS 3 ml) 3 ml PER PROTOCOL IV ; Start 04/23/19 at 20:00 Ondansetron HCl (Zofran Inj) 4 mg Q6H PRN IV NAUSEA/VOMITING Last administered on 05/08/19 10:00; Admin Dose 4 MG; Start 04/23/19 at 20:00 Acetaminophen (Tylenol Tab) 650 mg Q6H PRN PO .PAIN 1-3 OR TEMP Last administered on 05/10/19 09:38; Admin Dose 650 MG; Start 04/23/19 at 20:00 Morphine Sulfate (morphine) 2 mg Q4H PRN IV .SEVERE PAIN 7-10 Last administered on 6/28/19at 11:58; Admin Dose 2 MG; Start 04/23/19 at 20:00 Docusate Sodium (Colace) 100 mg Q12H PRN PO .CONSTIPATION; Start 04/23/19 at 20:00 Bisacodyl (Dulcolax) 5 mg DAILY PRN PO .CONSTIPATION; Start 04/23/19 at 20:00 Heparin Sodium (Porcine) (Heparin (5000 Units/1ml)) 5,000 unit Q8 SC Last administered on 05/10/19at 06:18; Admin Dose 5,000 UNIT; Start 04/23/19 at 22:00 Lactobacillus Acidophilus (Florajen3 Capsule) 1 each BID PO Last administered on 05/10/19 08:08; Admin Dose 1 EACH; Start 04/23/19 at 21:00 Miscellaneous Information 1 ea NOTE XX ; Start 04/23/19 at 20:30 Glucose (Glutose) 15 gm Q15M PRN PO DECREASED GLUCOSE; Start 04/23/19 at 20:30 Glucose (Glutose) 22.5 gm Q15M PRN PO DECREASED GLUCOSE; Start 04/23/19 at 20:30 Dextrose (D50w Syringe) 25 ml Q15M PRN IV DECREASED GLUCOSE; Start 04/23/19 at 20:30 Dextrose (D50w Syringe) 50 ml Q15M PRN IV DECREASED GLUCOSE; Start 04/23/19 at 20:30 Glucagon (Glucagen) 1 mg Q15M PRN IM DECREASED GLUCOSE; Start 04/23/19 at 20:30 Glucose (Glutose) 15 gm Q15M PRN BUCCAL DECREASED GLUCOSE; Start 04/23/19 at 20:30 Miscellaneous Information (Pending [facility] Order For Wound Care) This patient munguia... PRN PRN XX WOUND CARE; Start 04/24/19 at 05:00 Amlodipine Besylate (Norvasc) 10 mg DAILY PO Last administered on 05/10/19at 08:10; Admin Dose 10 MG; Start 04/29/19 at 09:00 Pantoprazole (Protonix Tab) 40 mg DAILY@06 PO Last administered on 05/10/19 06:17; Admin Dose 40 MG; Start 04/29/19 at 06:00 Lisinopril (Zestril) 10 mg DAILY PO Last administered on 05/10/19at 08:10; Admin Dose 10 MG; Start 04/29/19 at 09:30 Hyoscyamine (Levsin (Sl)) 0.125 mg Q4H PRN SL ab cramping; Start 04/29/19 at 12:30 Loperamide HCl (Imodium Cap) 2 mg BID PRN PO DIARRHEA; Start 04/29/19 at 12:30 Polyethylene Glycol (Miralax) 17 gm DAILY PRN PO constipation; Start 05/01/19 at 17:00 Metoclopramide HCl (Reglan) 5 mg Q6 IV Last administered on 05/10/19at 12:46; Admin Dose 5 MG; Start 05/01/19 at 18:00 Sodium Chloride 1,000 ml @ 50 mls/hr Q20H IV Last administered on 05/10/19 01:49; Admin Dose 50 MLS/HR; Start 05/03/19 at 09:30 Diagnostic Test (Pha) (Accu-Chek) 1 ea 02 XX ; Start 05/05/19 at 02:00 Insulin Aspart (Novolog Insulin Pen) NOVOLOG *MILD* ALGORITHM WITH MEALS BEDTIME SC ; Start 05/04/19 at 12:00 Scopolamine (Transderm-Scop) 1 patch Q72H TRANSDERM Last administered on 05/08/19 14:49; Admin Dose 1 PATCH; Start 05/05/19 at 14:30 Megestrol Acetate (Megace Susp) 400 mg BID PO Last administered on 05/10/19 08:08; Admin Dose 400 MG; Start 05/06/19 at 21:00 Prochlorperazine (Compazine Inj) 5 mg Q6H PRN IV NAUSEA AND/OR VOMITING; Start 05/06/19 at 14:30 Nystatin (Nystatin Powder) 1 applic TID TOP Last administered on 05/10/19 12:48; Admin Dose 1 APPLIC; Start 05/06/19 at 21:00 Diagnostic Test (Pha) (Accu-Chek) 1 ea Q4 XX Last administered on 05/10/19 12:10; Admin Dose 1 EA; Start 05/09/19 at 17:00 Total Parenteral Nutrition 1,000 ml @ 0 mls/hr Q0M IV ; Start 05/09/19 at 14:42; Status UNV Hydralazine HCl (Apresoline) 10 mg Q4H PRN IV sbp>160; Start 05/09/19 at 15:30 ANA MARIA ZULETA NP May 10, 2019 14:35
[2019-05-10] MEDS: TPN 1,000 ML IV SCH (17:04)
--- NOTE | 2019-05-10 17:25 | PN ---
Date/Time of Note Date/Time of Note DATE: 05/10/19 TIME: 17:12 Assessment/Plan VTE Prophylaxis Risk score (from Ns)>0 risk: 8 SCD applied (from Ns): Yes Pharmacological prophylaxis: other (scds) Lines/Catheters [facility] Peripheral IV Urinary Cath still in place: No Assessment/Plan Hospital Course Assessment: Nausea/vomiting- unclear etiology EGD 04/28/2019 Moderate distal esophagitis. Moderate gastritis. Rule out internal infection. Biopsies obtained. Evidence of previous gastrostomy tube site well-healed. Otherwise normal EGD. Gastric biopsies-negative for H. pylori organisms, no dysplasia or intestinal metaplasia is identified, patchy minimal chronic inflammation Diarrhea- possibly 2/2 to antibiotics - resolved Colonoscopy 04/28/2019 3 mm sessile polyp in the ascending colon, ablated. Moderate diverticulosis of the colon. Moderate-sized internal and large external hemorrhoids. Otherwise normal colonoscopy Ascending colon polyp, biopsy: tubular adenoma Repeat colonoscopy in 5 years -Stool studies COLIFORM, ELYSSA ALBICANS -CDIFF- Negative -O&P- Negative Normocytic anemia Abdominal cramping- improved UTI -ID following DM Dyslipidemia HTN Leukocytosis Plan: Calorie count- reveals patient is not meeting estimated nutritional. Despite multiple medications- and encouragement patient not meeting requirements- Recommend PEG placement - will plan for PEG placement Wednesday - as GI labs is closed for emergencies only Will d/c megace- continue other medication. Patient seen in collaboration with Dr. Vasquez Subjective: Course reviewed with nursing staff Patient interviewed and examined All labs, imaging and other results reviewed Despite current medication regimen patient continues to have poor po intake with nausea- she denies vomiting at this time. Discussed on-going calorie count. Discussed possibility of PEG placement. Pt is very open to the idea and feels it is a good option. Discussed unclear etiology of nausea- and even with PEG placement she may continue to have nausea- Patient states she believes she will be ok, as she had PEG before and her previous nausea post cholecystectomy may years ago eventually resolved. Physical exam: Constitutional: alert, oriented, obese Psych: no complaints Head: normocephalic, atraumatic Eyes: nl conjunctiva ENMT: nl external ears & nose, nl lips & teeth Neck: supple, non-tender Respiratory: normal air movement Gastrointestinal: soft, other (morbidly obese, rotund abdomen, prior g tube scar) Musculoskeletal: nl extremities to inspection Result Diagram: 05/10/19 0534 05/10/19 0534 Results 24hrs Laboratory Tests Test 05/09/19 17:23 05/09/19 20:56 05/10/19 05:34 05/10/19 07:58 Bedside Glucose 78 94 93 White Blood Count 13.1 H Red Blood Count 3.29 L Hemoglobin 8.5 L Hematocrit 27.1 L Mean Corpuscular Volume 82.4 Mean Corpuscular 25.8 L Hemoglobin Mean Corpuscular 31.4 L Hemoglobin Concent Red Cell Distribution 18.0 H Width Platelet Count 391 Mean Platelet Volume 9.3 Immature Granulocytes % 4.100 H Neutrophils % 52.4 Lymphocytes % 17.2 Monocytes % 7.9 Eosinophils % 17.8 H Basophils % 0.6 Nucleated Red Blood 0.0 Cells % Immature Granulocytes # 0.540 H Neutrophils # 6.9 Lymphocytes # 2.3 Monocytes # 1.0 H Eosinophils # 2.3 H Basophils # 0.1 Nucleated Red Blood 0.0 Cells # Sodium Level 137 Potassium Level 3.7 Chloride Level 110 Carbon Dioxide Level 20 L Anion Gap 7 Blood Urea Nitrogen 5 L Creatinine 0.96 Est Glomerular Filtrat 58 L Rate mL/min Glucose Level 85 Calcium Level 9.8 Phosphorus Level 3.1 Magnesium Level 1.7 Total Bilirubin 0.3 Direct Bilirubin 0.00 Indirect Bilirubin 0.3 Aspartate Amino 15 Transf (AST/SGOT) Alanine 19 Aminotransferase (ALT/SG PT) Alkaline Phosphatase 73 Total Protein 4.7 L Albumin 2.2 L Test 05/10/19 11:58 Bedside Glucose 85 Exam/Review of Systems Exam Vitals Vital Signs Date Temp Pulse Resp B/P (MAP) Pulse Ox O2 O2 Flow FiO2 Time Delivery Rate 05/10/19 98.0 74 20 128/68 94 14:00 (88) 05/07/19 Room Air 14:12 Intake and Output 05/09/19 05/09/19 05/10/19 1515:00 23:00 07:00 IntakeIntake Total 550 ml 525 ml BalanceBalance 550 ml 525 ml Results Results 24hrs Laboratory Tests Test 05/09/19 17:23 05/09/19 20:56 05/10/19 05:34 05/10/19 07:58 Bedside Glucose 78 94 93 White Blood Count 13.1 H Red Blood Count 3.29 L Hemoglobin 8.5 L Hematocrit 27.1 L Mean Corpuscular Volume 82.4 Mean Corpuscular 25.8 L Hemoglobin Mean Corpuscular 31.4 L Hemoglobin Concent Red Cell Distribution 18.0 H Width Platelet Count 391 Mean Platelet Volume 9.3 Immature Granulocytes % 4.100 H Neutrophils % 52.4 Lymphocytes % 17.2 Monocytes % 7.9 Eosinophils % 17.8 H Basophils % 0.6 Nucleated Red Blood 0.0 Cells % Immature Granulocytes # 0.540 H Neutrophils # 6.9 Lymphocytes # 2.3 Monocytes # 1.0 H Eosinophils # 2.3 H Basophils # 0.1 Nucleated Red Blood 0.0 Cells # Sodium Level 137 Potassium Level 3.7 Chloride Level 110 Carbon Dioxide Level 20 L Anion Gap 7 Blood Urea Nitrogen 5 L Creatinine 0.96 Est Glomerular Filtrat 58 L Rate mL/min Glucose Level 85 Calcium Level 9.8 Phosphorus Level 3.1 Magnesium Level 1.7 Total Bilirubin 0.3 Direct Bilirubin 0.00 Indirect Bilirubin 0.3 Aspartate Amino 15 Transf (AST/SGOT) Alanine 19 Aminotransferase (ALT/SG PT) Alkaline Phosphatase 73 Total Protein 4.7 L Albumin 2.2 L Test 05/10/19 11:58 Bedside Glucose 85 Medications Medication Current Medications Atorvastatin Calcium (Lipitor) 40 mg QHS PO Last administered on 05/09/19 20:57; Admin Dose 40 MG; Start 04/23/19 at 21:00 Clonidine (Catapres) 0.1 mg TID PRN PO ELEVATED BLOOD PRESSURE Last administered on 04/28/19 22:48; Admin Dose 0.1 MG; Start 04/23/19 at 20:00 Escitalopram Oxalate (Lexapro) 10 mg DAILY PO Last administered on 05/10/19 08:08; Admin Dose 10 MG; Start 04/24/19 at 09:00 IV Flush (NS 3 ml) 3 ml PER PROTOCOL IV ; Start 04/23/19 at 20:00 Ondansetron HCl (Zofran Inj) 4 mg Q6H PRN IV NAUSEA/VOMITING Last administered on 05/08/19 10:00; Admin Dose 4 MG; Start 04/23/19 at 20:00 Acetaminophen (Tylenol Tab) 650 mg Q6H PRN PO .PAIN 1-3 OR TEMP Last adm inistered on 7/3/19at 09:38; Admin Dose 650 MG; Start 04/23/19 at 20:00 Morphine Sulfate (morphine) 2 mg Q4H PRN IV .SEVERE PAIN 7-10 Last administered on 05/05/19at 11:58; Admin Dose 2 MG; Start 04/23/19 at 20:00 Docusate Sodium (Colace) 100 mg Q12H PRN PO .CONSTIPATION; Start 04/23/19 at 20:00 Bisacodyl (Dulcolax) 5 mg DAILY PRN PO .CONSTIPATION; Start 04/23/19 at 20:00 Heparin Sodium (Porcine) (Heparin (5000 Units/1ml)) 5,000 unit Q8 SC Last administered on 05/10/19 15:04; Admin Dose 5,000 UNIT; Start 04/23/19 at 22:00 Lactobacillus Acidophilus (Florajen3 Capsule) 1 each BID PO Last administered on 05/10/19 08:08; Admin Dose 1 EACH; Start 04/23/19 at 21:00 Miscellaneous Information 1 ea NOTE XX ; Start 04/23/19 at 20:30 Glucose (Glutose) 15 gm Q15M PRN PO DECREASED GLUCOSE; Start 04/23/19 at 20:30 Glucose (Glutose) 22.5 gm Q15M PRN PO DECREASED GLUCOSE; Start 04/23/19 at 20:30 Dextrose (D50w Syringe) 25 ml Q15M PRN IV DECREASED GLUCOSE; Start 04/23/19 at 20:30 Dextrose (D50w Syringe) 50 ml Q15M PRN IV DECREASED GLUCOSE; Start 04/23/19 at 20:30 Glucagon (Glucagen) 1 mg Q15M PRN IM DECREASED GLUCOSE; Start 04/23/19 at 20:30 Glucose (Glutose) 15 gm Q15M PRN BUCCAL DECREASED GLUCOSE; Start 04/23/19 at 20:30 Miscellaneous Information (Pending [facility] Order For Wound Care) This patient munguia... PRN PRN XX WOUND CARE; Start 04/24/19 at 05:00 Amlodipine Besylate (Norvasc) 10 mg DAILY PO Last administered on 05/10/19 08:10; Admin Dose 10 MG; Start 04/29/19 at 09:00 Pantoprazole (Protonix Tab) 40 mg DAILY@06 PO Last administered on 05/10/19at 06:17; Admin Dose 40 MG; Start 04/29/19 at 06:00 Lisinopril (Zestril) 10 mg DAILY PO Last administered on 05/10/19 08:10; Admin Dose 10 MG; Start 04/29/19 at 09:30 Hyoscyamine (Levsin (Sl)) 0.125 mg Q4H PRN SL ab cramping; Start 04/29/19 at 12:30 Loperamide HCl (Imodium Cap) 2 mg BID PRN PO DIARRHEA; Start 04/29/19 at 12:30 Polyethylene Glycol (Miralax) 17 gm DAILY PRN PO constipation; Start 05/01/19 at 17:00 Metoclopramide HCl (Reglan) 5 mg Q6 IV Last administered on 05/10/19 12:46; Admin Dose 5 MG; Start 05/01/19 at 18:00 Sodium Chloride 1,000 ml @ 50 mls/hr Q20H IV Last administered on 05/10/19 01:49; Admin Dose 50 MLS/HR; Start 05/03/19 at 09:30 Diagnostic Test (Pha) (Accu-Chek) 1 ea 02 XX ; Start 05/05/19 at 02:00 Insulin Aspart (Novolog Insulin Pen) NOVOLOG *MILD* ALGORITHM WITH MEALS BEDTIME SC ; Start 05/04/19 at 12:00 Scopolamine (Transderm-Scop) 1 patch Q72H TRANSDERM Last administered on 05/08/19 14:49; Admin Dose 1 PATCH; Start 05/05/19 at 14:30 Megestrol Acetate (Megace Susp) 400 mg BID PO Last administered on 05/10/19 08:08; Admin Dose 400 MG; Start 05/06/19 at 21:00 Prochlorperazine (Compazine Inj) 5 mg Q6H PRN IV NAUSEA AND/OR VOMITING; Start 05/06/19 at 14:30 Nystatin (Nystatin Powder) 1 applic TID TOP Last administered on 05/10/19 12:48; Admin Dose 1 APPLIC; Start 05/06/19 at 21:00 Diagnostic Test (Pha) (Accu-Chek) 1 ea Q4 XX Last administered on 05/10/19 12:10; Admin Dose 1 EA; Start 05/09/19 at 17:00 Total Parenteral Nutrition 1,000 ml @ 70 mls/hr [id number] IV Last administered on 05/10/19at 17:04; Admin Dose 70 MLS/HR; Start 05/10/19 at 16:00 Hydralazine HCl (Apresoline) 10 mg Q4H PRN IV sbp>160; Start 05/09/19 at 15:30 BALTA HENDERSON May 10, 2019 17:22
[2019-05-10 20:00] VITALS: BP 153/67; PULSE 75; RESP 17
--- NOTE | 2019-05-10 20:22 | PN ---
Date/Time of Note Date/Time of Note DATE: 05/10/19 TIME: 20:20 Assessment/Plan VTE Prophylaxis Risk score (from Ns)>0 risk: 8 SCD applied (from Ns): Yes Pharmacological prophylaxis: heparin Lines/Catheters IV [facility] Type ([facility] Peripheral IV Urinary Cath still in place: No Assessment/Plan Hospital Course Assessment and plan 1. Nausea and vomiting acute on chronic. - Antiemetics as needed. - GI following. - Continue on PPI and Carafate. - Follow-up with GI if need for further recommendations- possible PEG if not improved - PPN 2. UTI. - Resolved at present. - ID consult following. 3. Diarrhea. - Resolved. - On probiotics. 4. Skin tear. - Continue wound care. 5. Diabetes. - Continue insulin regimen. Adjust as needed 6. Hypertension. - Continue antihypertensives. Adjust as needed. Disposition and plan. PPN was ordered. plan for PEG placement due to poor oral intake. continue supportive care Discussed POC with Dr. Hewitt Result Diagram: 05/10/19 0534 05/10/19 0534 Results 24hrs Laboratory Tests Test 05/09/19 20:56 05/10/19 05:34 05/10/19 07:58 05/10/19 11:58 Bedside Glucose 94 93 85 White Blood Count 13.1 H Red Blood Count 3.29 L Hemoglobin 8.5 L Hematocrit 27.1 L Mean Corpuscular Volume 82.4 Mean Corpuscular 25.8 L Hemoglobin Mean Corpuscular 31.4 L Hemoglobin Concent Red Cell Distribution 18.0 H Width Platelet Count 391 Mean Platelet Volume 9.3 Immature Granulocytes % 4.100 H Neutrophils % 52.4 Lymphocytes % 17.2 Monocytes % 7.9 Eosinophils % 17.8 H Basophils % 0.6 Nucleated Red Blood 0.0 Cells % Immature Granulocytes # 0.540 H Neutrophils # 6.9 Lymphocytes # 2.3 Monocytes # 1.0 H Eosinophils # 2.3 H Basophils # 0.1 Nucleated Red Blood 0.0 Cells # Sodium Level 137 Potassium Level 3.7 Chloride Level 110 Carbon Dioxide Level 20 L Anion Gap 7 Blood Urea Nitrogen 5 L Creatinine 0.96 Est Glomerular Filtrat 58 L Rate mL/min Glucose Level 85 Calcium Level 9.8 Phosphorus Level 3.1 Magnesium Level 1.7 Total Bilirubin 0.3 Direct Bilirubin 0.00 Indirect Bilirubin 0.3 Aspartate Amino 15 Transf (AST/SGOT) Alanine 19 Aminotransferase (ALT/SG PT) Alkaline Phosphatase 73 Total Protein 4.7 L Albumin 2.2 L Test 05/10/19 17:03 Bedside Glucose 89 Subjective 24 Hr Interval Summary Free Text/Dictation still with poor oral intake. reports poor appetite Exam/Review of Systems Exam Vitals Vital Signs Date Temp Pulse Resp B/P (MAP) Pulse Ox O2 O2 Flow FiO2 Time Delivery Rate 05/10/19 98.0 74 20 128/68 94 14:00 (88) 05/07/19 Room Air 14:12 Intake and Output 05/09/19 05/09/19 05/10/19 1515:00 23:00 07:00 IntakeIntake Total 550 ml 525 ml BalanceBalance 550 ml 525 ml Exam Constitutional: alert, obese Neck: supple, non-tender Respiratory: clear to auscultation, normal air movement Cardiovascular: other (regular rate ) Gastrointestinal: soft, nontender Neurological: nl mental status, nl speech Results Results 24hrs Laboratory Tests Test 05/09/19 20:56 05/10/19 05:34 05/10/19 07:58 05/10/19 11:58 Bedside Glucose 94 93 85 White Blood Count 13.1 H Red Blood Count 3.29 L Hemoglobin 8.5 L Hematocrit 27.1 L Mean Corpuscular Volume 82.4 Mean Corpuscular 25.8 L Hemoglobin Mean Corpuscular 31.4 L Hemoglobin Concent Red Cell Distribution 18.0 H Width Platelet Count 391 Mean Platelet Volume 9.3 Immature Granulocytes % 4.100 H Neutrophils % 52.4 Lymphocytes % 17.2 Monocytes % 7.9 Eosinophils % 17.8 H Basophils % 0.6 Nucleated Red Blood 0.0 Cells % Immature Granulocytes # 0.540 H Neutrophils # 6.9 Lymphocytes # 2.3 Monocytes # 1.0 H Eosinophils # 2.3 H Basophils # 0.1 Nucleated Red Blood 0.0 Cells # Sodium Level 137 Potassium Level 3.7 Chloride Level 110 Carbon Dioxide Level 20 L Anion Gap 7 Blood Urea Nitrogen 5 L Creatinine 0.96 Est Glomerular Filtrat 58 L Rate mL/min Glucose Level 85 Calcium Level 9.8 Phosphorus Level 3.1 Magnesium Level 1.7 Total Bilirubin 0.3 Direct Bilirubin 0.00 Indirect Bilirubin 0.3 Aspartate Amino 15 Transf (AST/SGOT) Alanine 19 Aminotransferase (ALT/SG PT) Alkaline Phosphatase 73 Total Protein 4.7 L Albumin 2.2 L Test 05/10/19 17:03 Bedside Glucose 89 Medications Medication Current Medications Atorvastatin Calcium (Lipitor) 40 mg QHS PO Last administered on 05/09/19 20:57; Admin Dose 40 MG; Start 04/23/19 at 21:00 Clonidine (Catapres) 0.1 mg TID PRN PO ELEVATED BLOOD PRESSURE Last a dministered on 04/28/19 22:48; Admin Dose 0.1 MG; Start 04/23/19 at 20:00 Escitalopram Oxalate (Lexapro) 10 mg DAILY PO Last administered on 05/10/19 08:08; Admin Dose 10 MG; Start 04/24/19 at 09:00 IV Flush (NS 3 ml) 3 ml PER PROTOCOL IV ; Start 04/23/19 at 20:00 Ondansetron HCl (Zofran Inj) 4 mg Q6H PRN IV NAUSEA/VOMITING Last administered on 05/08/19 10:00; Admin Dose 4 MG; Start 04/23/19 at 20:00 Acetaminophen (Tylenol Tab) 650 mg Q6H PRN PO .PAIN 1-3 OR TEMP Last administered on 05/10/19 09:38; Admin Dose 650 MG; Start 04/23/19 at 20:00 Morphine Sulfate (morphine) 2 mg Q4H PRN IV .SEVERE PAIN 7-10 Last administered on 05/05/19 11:58; Admin Dose 2 MG; Start 04/23/19 at 20:00 Docusate Sodium (Colace) 100 mg Q12H PRN PO .CONSTIPATION; Start 04/23/19 at 20:00 Bisacodyl (Dulcolax) 5 mg DAILY PRN PO .CONSTIPATION; Start 04/23/19 at 20:00 Heparin Sodium (Porcine) (Heparin (5000 Units/1ml)) 5,000 unit Q8 SC Last administered on 05/10/19 15:04; Admin Dose 5,000 UNIT; Start 04/23/19 at 22:00 Lactobacillus Acidophilus (Florajen3 Capsule) 1 each BID PO Last administered on 05/10/19 08:08; Admin Dose 1 EACH; Start 04/23/19 at 21:00 Miscellaneous Information 1 ea NOTE XX ; Start 04/23/19 at 20:30 Glucose (Glutose) 15 gm Q15M PRN PO DECREASED GLUCOSE; Start 04/23/19 at 20:30 Glucose (Glutose) 22.5 gm Q15M PRN PO DECREASED GLUCOSE; Start 04/23/19 at 20:30 Dextrose (D50w Syringe) 25 ml Q15M PRN IV DECREASED GLUCOSE; Start 04/23/19 at 20:30 Dextrose (D50w Syringe) 50 ml Q15M PRN IV DECREASED GLUCOSE; Start 04/23/19 at 20:30 Glucagon (Glucagen) 1 mg Q15M PRN IM DECREASED GLUCOSE; Start 04/23/19 at 20:30 Glucose (Glutose) 15 gm Q15M PRN BUCCAL DECREASED GLUCOSE; Start 04/23/19 at 20:30 Miscellaneous Information (Pending [facility] Order For Wound Care) This patient munguia... PRN PRN XX WOUND CARE; Start 04/24/19 at 05:00 Amlodipine Besylate (Norvasc) 10 mg DAILY PO Last administered on 05/10/19at 08:10; Admin Dose 10 MG; Start 04/29/19 at 09:00 Pantoprazole (Protonix Tab) 40 mg DAILY@06 PO Last administered on 05/10/19at 06:17; Admin Dose 40 MG; Start 04/29/19 at 06:00 Lisinopril (Zestril) 10 mg DAILY PO Last administered on 05/10/19at 08:10; Admin Dose 10 MG; Start 04/29/19 at 09:30 Hyoscyamine (Levsin (Sl)) 0.125 mg Q4H PRN SL ab cramping; Start 04/29/19 at 12:30 Loperamide HCl (Imodium Cap) 2 mg BID PRN PO DIARRHEA; Start 04/29/19 at 12:30 Polyethylene Glycol (Miralax) 17 gm DAILY PRN PO constipation; Start 05/01/19 at 17:00 Metoclopramide HCl (Reglan) 5 mg Q6 IV Last administered on 05/10/19at 18:28; Admin Dose 5 MG; Start 05/01/19 at 18:00 Diagnostic Test (Pha) (Accu-Chek) 1 ea 02 XX ; Start 05/05/19 at 02:00 Insulin Aspart (Novolog Insulin Pen) NOVOLOG *MILD* ALGORITHM WITH MEALS BEDTIME SC ; Start 05/04/19 at 12:00 Scopolamine (Transderm-Scop) 1 patch Q72H TRANSDERM Last administered on 05/08/19at 14:49; Admin Dose 1 PATCH; Start 05/05/19 at 14:30 Prochlorperazine (Compazine Inj) 5 mg Q6H PRN IV NAUSEA AND/OR VOMITING; Start 05/06/19 at 14:30 Nystatin (Nystatin Powder) 1 applic TID TOP Last administered on 05/10/19 12:48; Admin Dose 1 APPLIC; Start 05/06/19 at 21:00 Diagnostic Test (Pha) (Accu-Chek) 1 ea Q4 XX Last administered on 05/10/19 17:25; Admin Dose 1 EA; Start 05/09/19 at 17:00 Total Parenteral Nutrition 1,000 ml @ 70 mls/hr [id number] IV Last administered on 05/10/19 17:04; Admin Dose 70 MLS/HR; Start 05/10/19 at 16:00 Hydralazine HCl (Apresoline) 10 mg Q4H PRN IV sbp>160; Start 05/09/19 at 15:30 JOSEFINA LUGO NP May 10, 2019 20:22
[2019-05-10] MEDS: ATORVASTATIN 40 MG TAB PO SCH (20:53)
[2019-05-11] MEDS: ACCU-CHEK XX SCH ×7 (01:00→20:08)
[2019-05-11] MEDS: ZOLPIDEM 5 MG TAB PO PRN (01:47)
[2019-05-11 02:02] VITALS: BP 117/61; PULSE 72; RESP 21
[2019-05-11] MEDS: HEPARIN 5,000 UNIT/1 ML VIAL SC SCH ×3 (04:59→20:08)
[2019-05-11] MEDS: METOCLOPRAMIDE 10 MG INJ IV SCH ×3 (05:00→17:39)
[2019-05-11] MEDS: PANTOPRAZOLE (EC) 40 MG TAB PO SCH (05:00)
[2019-05-11] MEDS: TPN 1,000 ML IV SCH ×2 (05:04→20:08)
[2019-05-11] MEDS: INSULIN ASPART [NOVOLOG] 3 ML PEN SC SCH ×5 (08:00→19:35)
[2019-05-11 08:05] VITALS: BP 118/58; PULSE 68; RESP 17
[2019-05-11] MEDS: ESCITALOPRAM 10 MG TAB PO SCH (08:19)
[2019-05-11] MEDS: LISINOPRIL 10 MG TAB PO SCH (08:20)
[2019-05-11] MEDS: AMLODIPINE 10 MG TAB PO SCH (08:20)
[2019-05-11] MEDS: L ACIDOPHIL/B LACTIS/B LONGUM CAPSULE PO SCH ×2 (08:20→20:07)
[2019-05-11] MEDS: NYSTATIN 30 GM POWDER BTL TOP SCH ×3 (08:21→20:08)
--- NOTE | 2019-05-11 09:31 | PN ---
Date/Time of Note Date/Time of Note DATE: 05/11/19 TIME: 09:28 Assessment/Plan VTE Prophylaxis Risk score (from Nsg)>0 risk: 6 SCD applied (from Nsg): Yes Pharmacological prophylaxis: other (scds) Lines/Catheters IV [facility]ter Type (from [facility] Peripheral IV Urinary Cath still in place: No Assessment/Plan Hospital Course Assessment: Poor appetite- not meet daily caloric needs Nausea/vomiting- unclear etiology EGD 04/28/2019 Moderate distal esophagitis. Moderate gastritis. Rule out internal infection. Biopsies obtained. Evidence of previous gastrostomy tube site well-healed. Otherwise normal EGD. Gastric biopsies-negative for H. pylori organisms, no dysplasia or intestinal metaplasia is identified, patchy minimal chronic inflammation Diarrhea- possibly 2/2 to antibiotics - resolved Colonoscopy 04/28/2019 3 mm sessile polyp in the ascending colon, ablated. Moderate diverticulosis of the colon. Moderate-sized internal and large external hemorrhoids. Otherwise normal colonoscopy Ascending colon polyp, biopsy: tubular adenoma Repeat colonoscopy in 5 years -Stool studies COLIFORM, ELYSSA ALBICANS -CDIFF- Negative -O&P- Negative Normocytic anemia Abdominal cramping- improved UTI -ID following DM Dyslipidemia HTN Leukocytosis Plan: NPO after midnight for PEG tomorrow Will check INR in am Patient seen in collaboration with Dr. Vasquez Subjective: Course reviewed with nursing staff Patient interviewed and examined All labs, imaging and other results reviewed No over night events, pt currently on PPN, Continues to have small amount of liquid pudding. No over night events Physical exam: Constitutional: alert, oriented, obese Psych: no complaints Head: normocephalic, atraumatic Eyes: nl conjunctiva ENMT: nl external ears & nose, nl lips & teeth Neck: supple, non-tender Respiratory: normal air movement Gastrointestinal: soft, other (morbidly obese, rotund abdomen, prior g tube scar) Musculoskeletal: nl extremities to inspection Result Diagram: 05/11/19 0546 05/11/19 0546 Results 24hrs Laboratory Tests Test 05/10/19 11:58 05/10/19 17:03 05/10/19 20:39 05/11/19 00:50 Bedside Glucose 85 89 134 140 Test 05/11/19 04:59 05/11/19 05:46 05/11/19 08:15 Bedside Glucose 135 119 White Blood Count 11.6 H Red Blood Count 3.35 L Hemoglobin 8.6 L Hematocrit 27.6 L Mean Corpuscular Volume 82.4 Mean Corpuscular 25.7 L Hemoglobin Mean Corpuscular 31.2 L Hemoglobin Concent Red Cell Distribution 18.0 H Width Platelet Count 430 H Mean Platelet Volume 9.9 Immature Granulocytes % 3.500 H Neutrophils % 55.5 Lymphocytes % 16.6 Monocytes % 7.9 Eosinophils % 16.0 H Basophils % 0.5 Nucleated Red Blood 0.0 Cells % Immature Granulocytes # 0.410 H Neutrophils # 6.4 Lymphocytes # 1.9 Monocytes # 0.9 Eosinophils # 1.9 H Basophils # 0.1 Nucleated Red Blood 0.0 Cells # Sodium Level 134 L Potassium Level 3.9 Chloride Level 107 Carbon Dioxide Level 21 Anion Gap 6 Blood Urea Nitrogen 8 Creatinine 0.97 Est Glomerular Filtrat 58 L Rate mL/min Glucose Level 123 Calcium Level 9.8 Phosphorus Level 2.4 L Magnesium Level 2.0 Exam/Review of Systems Exam Vitals Vital Signs Date Temp Pulse Resp B/P (MAP) Pulse Ox O2 O2 Flow FiO2 Time Delivery Rate 05/11/19 98.5 68 17 118/58 100 Room Air 08:05 (78) Intake and Output 05/10/19 05/10/19 05/11/19 1515:00 23:00 07:00 IntakeIntake Total 106 ml 690 ml OutputOutput Total 400 ml BalanceBalance 106 ml 290 ml Results Results 24hrs Laboratory Tests Test 05/10/19 11:58 05/10/19 17:03 05/10/19 20:39 05/11/19 00:50 Bedside Glucose 85 89 134 140 Test 05/11/19 04:59 05/11/19 05:46 05/11/19 08:15 Bedside Glucose 135 119 White Blood Count 11.6 H Red Blood Count 3.35 L Hemoglobin 8.6 L Hematocrit 27.6 L Mean Corpuscular Volume 82.4 Mean Corpuscular 25.7 L Hemoglobin Mean Corpuscular 31.2 L Hemoglobin Concent Red Cell Distribution 18.0 H Width Platelet Count 430 H Mean Platelet Volume 9.9 Immature Granulocytes % 3.500 H Neutrophils % 55.5 Lymphocytes % 16.6 Monocytes % 7.9 Eosinophils % 16.0 H Basophils % 0.5 Nucleated Red Blood 0.0 Cells % Immature Granulocytes # 0.410 H Neutrophils # 6.4 Lymphocytes # 1.9 Monocytes # 0.9 Eosinophils # 1.9 H Basophils # 0.1 Nucleated Red Blood 0.0 Cells # Sodium Level 134 L Potassium Level 3.9 Chloride Level 107 Carbon Dioxide Level 21 Anion Gap 6 Blood Urea Nitrogen 8 Creatinine 0.97 Est Glomerular Filtrat 58 L Rate mL/min Glucose Level 123 Calcium Level 9.8 Phosphorus Level 2.4 L Magnesium Level 2.0 Medications Medication Current Medications Atorvastatin Calcium (Lipitor) 40 mg QHS PO Last administered on 05/10/19 20:53; Admin Dose 40 MG; Start 04/23/19 at 21:00 Clonidine (Catapres) 0.1 mg TID PRN PO ELEVATED BLOOD PRESSURE Last administered on 04/28/19 22:48; Admin Dose 0.1 MG; Start 04/23/19 at 20:00 Escitalopram Oxalate (Lexapro) 10 mg DAILY PO Last administered on 05/11/19 08:19; Admin Dose 10 MG; Start 04/24/19 at 09:00 IV Flush (NS 3 ml) 3 ml PER PROTOCOL IV ; Start 04/23/19 at 20:00 Ondansetron HCl (Zofran Inj) 4 mg Q6H PRN IV NAUSEA/VOMITING Last administered on 05/08/19 10:00; Admin Dose 4 MG; Start 04/23/19 at 20:00 Acetaminophen (Tylenol Tab) 650 mg Q6H PRN PO .PAIN 1-3 OR TEMP Last administered on 05/10/19 09:38; Admin Dose 650 MG; Start 04/23/19 at 20:00 Morphine Sulfate (morphine) 2 mg Q4H PRN IV .SEVERE PAIN 7-10 Last administered on 05/05/19 11:58; Admin Dose 2 MG; Start 04/23/19 at 20:00 Docusate Sodium (Colace) 100 mg Q12H PRN PO .CONSTIPATION; Start 04/23/19 at 20:00 Bisacodyl (Dulcolax) 5 mg DAILY PRN PO .CONSTIPATION; Start 04/23/19 at 20:00 Heparin Sodium (Porcine) (Heparin (5000 Units/1ml)) 5,000 unit Q8 SC Last administered on 05/11/19 04:59; Admin Dose 5,000 UNIT; Start 04/23/19 at 22:00 Lactobacillus Acidophilus (Florajen3 Capsule) 1 each BID PO Last administered on 05/11/19at 08:20; Admin Dose 1 EACH; Start 04/23/19 at 21:00 Miscellaneous Information 1 ea NOTE XX ; Start 04/23/19 at 20:30 Glucose (Glutose) 15 gm Q15M PRN PO DECREASED GLUCOSE; Start 04/23/19 at 20:30 Glucose (Glutose) 22.5 gm Q15M PRN PO DECREASED GLUCOSE; Start 04/23/19 at 20:30 Dextrose (D50w Syringe) 25 ml Q15M PRN IV DECREASED GLUCOSE; Start 04/23/19 at 20:30 Dextrose (D50w Syringe) 50 ml Q15M PRN IV DECREASED GLUCOSE; Start 04/23/19 at 20:30 Glucagon (Glucagen) 1 mg Q15M PRN IM DECREASED GLUCOSE; Start 04/23/19 at 20:30 Glucose (Glutose) 15 gm Q15M PRN BUCCAL DECREASED GLUCOSE; Start 04/23/19 at 20:30 [facility] This patient munguia... PRN PRN XX WOUND CARE; Start 04/24/19 at 05:00 Amlodipine Besylate (Norvasc) 10 mg DAILY PO Last administered on 05/11/19at 08:20; Admin Dose 10 MG; Start 04/29/19 at 09:00 Pantoprazole (Protonix Tab) 40 mg DAILY@06 PO Last administered on 05/11/19at 05:00; Admin Dose 40 MG; Start 04/29/19 at 06:00 Lisinopril (Zestril) 10 mg DAILY PO Last administered on 05/11/19at 08:20; Admin Dose 10 MG; Start 04/29/19 at 09:30 Hyoscyamine (Levsin (Sl)) 0.125 mg Q4H PRN SL ab cramping; Start 04/29/19 at 12:30 Loperamide HCl (Imodium Cap) 2 mg BID PRN PO DIARRHEA; Start 04/29/19 at 12:30 Polyethylene Glycol (Miralax) 17 gm DAILY PRN PO constipation; Start 05/01/19 at 17:00 Metoclopramide HCl (Reglan) 5 mg Q6 IV Last administered on 05/11/19 05:00; Admin Dose 5 MG; Start 05/01/19 at 18:00 Diagnostic Test (Pha) (Accu-Chek) 1 ea 02 XX ; Start 05/05/19 at 02:00 Insulin Aspart (Novolog Insulin Pen) NOVOLOG *MILD* ALGORITHM WITH MEALS BEDTIME SC ; Start 05/04/19 at 12:00 Scopolamine (Transderm-Scop) 1 patch Q72H TRANSDERM Last administered on 05/08/19 14:49; Admin Dose 1 PATCH; Start 05/05/19 at 14:30 Prochlorperazine (Compazine Inj) 5 mg Q6H PRN IV NAUSEA AND/OR VOMITING; Start 05/06/19 at 14:30 Nystatin (Nystatin Powder) 1 applic TID TOP Last administered on 05/11/19 08:21; Admin Dose 1 APPLIC; Start 05/06/19 at 21:00 Diagnostic Test (Pha) (Accu-Chek) 1 ea Q4 XX Last administered on 05/11/19 05:07; Admin Dose 1 EA; Start 05/09/19 at 17:00 Total Parenteral Nutrition 1,000 ml @ 70 mls/hr [id number] IV Last administered on 05/11/19 05:04; Admin Dose 70 MLS/HR; Start 05/10/19 at 16:00 Hydralazine HCl (Apresoline) 10 mg Q4H PRN IV sbp>160; Start 05/09/19 at 15:30 Zolpidem Tartrate (Ambien) 5 mg HS MAY REPEAT X 1 PRN PO INSOMNIA Last administered on 05/11/19at 01:47; Admin Dose 5 MG; Start 05/11/19 at 02:00 BALTA HENDERSON May 11, 2019 09:31
[2019-05-11 14:00] VITALS: BP 120/60; PULSE 78; RESP 17
[2019-05-11] MEDS: SCOPOLAMINE 1.5 MG PATCH TRANSDERM SCH (14:07)
--- NOTE | 2019-05-11 16:03 | PN ---
Date/Time of Note Date/Time of Note DATE: 05/11/19 TIME: 15:59 Assessment/Plan VTE Prophylaxis Risk score (from Ns)>0 risk: 6 SCD applied (from Ns): Yes Pharmacological prophylaxis: heparin Lines/Catheters IV Catheter Type (from [facility]): Peripheral IV Urinary Cath still in place: No Assessment/Plan Hospital Course Assessment and plan 1. Nausea and vomiting acute on chronic. - Antiemetics as needed. - GI following. - Continue on PPI and Carafate. - Follow-up with GI if need for further recommendations- possible PEG if not improved - PPN 2. UTI. - Resolved at present. - ID consult following. 3. Diarrhea. - Resolved. - On probiotics. 4. Skin tear. - Continue wound care. 5. Diabetes. - Continue insulin regimen. Adjust as needed 6. Hypertension. - Continue antihypertensives. Adjust as needed. Disposition and plan. PPN was ordered. plan for PEG placement 05/12/[address] Hewitt Result Diagram: 05/11/19 0546 05/11/19 0546 Results 24hrs Laboratory Tests Test 05/10/19 17:03 05/10/19 20:39 05/11/19 00:50 05/11/19 04:59 Bedside Glucose 89 134 140 135 Test 05/11/19 05:46 05/11/19 08:15 05/11/19 11:52 White Blood Count 11.6 H Red Blood Count 3.35 L Hemoglobin 8.6 L Hematocrit 27.6 L Mean Corpuscular Volume 82.4 Mean Corpuscular 25.7 L Hemoglobin Mean Corpuscular 31.2 L Hemoglobin Concent Red Cell Distribution 18.0 H Width Platelet Count 430 H Mean Platelet Volume 9.9 Immature Granulocytes % 3.500 H Neutrophils % 55.5 Lymphocytes % 16.6 Monocytes % 7.9 Eosinophils % 16.0 H Basophils % 0.5 Nucleated Red Blood 0.0 Cells % Immature Granulocytes # 0.410 H Neutrophils # 6.4 Lymphocytes # 1.9 Monocytes # 0.9 Eosinophils # 1.9 H Basophils # 0.1 Nucleated Red Blood 0.0 Cells # Sodium Level 134 L Potassium Level 3.9 Chloride Level 107 Carbon Dioxide Level 21 Anion Gap 6 Blood Urea Nitrogen 8 Creatinine 0.97 Est Glomerular Filtrat 58 L Rate mL/min Glucose Level 123 Calcium Level 9.8 Phosphorus Level 2.4 L Magnesium Level 2.0 Bedside Glucose 119 146 Subjective 24 Hr Interval Summary Free Text/Dictation was drowsy during visit. Still with poor oral intake still Exam/Review of Systems Exam Vitals Vital Signs Date Temp Pulse Resp B/P (MAP) Pulse Ox O2 O2 Flow FiO2 Time Delivery Rate 05/11/19 98.3 78 17 120/60 96 Room Air 14:00 (80) Intake and Output 05/10/19 05/10/19 05/11/19 1515:00 23:00 07:00 IntakeIntake Total 106 ml 690 ml OutputOutput Total 400 ml BalanceBalance 106 ml 290 ml Exam Constitutional: alert, obese Neck: supple, non-tender Respiratory: clear to auscultation, normal air movement Cardiovascular: other (regular rate ) Gastrointestinal: soft, nontender Neurological: nl mental status, nl speech Results Results 24hrs Laboratory Tests Test 05/10/19 17:03 05/10/19 20:39 05/11/19 00:50 05/11/19 04:59 Bedside Glucose 89 134 140 135 Test 05/11/19 05:46 05/11/19 08:15 05/11/19 11:52 White Blood Count 11.6 H Red Blood Count 3.35 L Hemoglobin 8.6 L Hematocrit 27.6 L Mean Corpuscular Volume 82.4 Mean Corpuscular 25.7 L Hemoglobin Mean Corpuscular 31.2 L Hemoglobin Concent Red Cell Distribution 18.0 H Width Platelet Count 430 H Mean Platelet Volume 9.9 Immature Granulocytes % 3.500 H Neutrophils % 55.5 Lymphocytes % 16.6 Monocytes % 7.9 Eosinophils % 16.0 H Basophils % 0.5 Nucleated Red Blood 0.0 Cells % Immature Granulocytes # 0.410 H Neutrophils # 6.4 Lymphocytes # 1.9 Monocytes # 0.9 Eosinophils # 1.9 H Basophils # 0.1 Nucleated Red Blood 0.0 Cells # Sodium Level 134 L Potassium Level 3.9 Chloride Level 107 Carbon Dioxide Level 21 Anion Gap 6 Blood Urea Nitrogen 8 Creatinine 0.97 Est Glomerular Filtrat 58 L Rate mL/min Glucose Level 123 Calcium Level 9.8 Phosphorus Level 2.4 L Magnesium Level 2.0 Bedside Glucose 119 146 Medications Medication Current Medications Atorvastatin Calcium (Lipitor) 40 mg QHS PO Last administered on 05/10/19at 20:5 3; Admin Dose 40 MG; Start 04/23/19 at 21:00 Clonidine (Catapres) 0.1 mg TID PRN PO ELEVATED BLOOD PRESSURE Last administered on 04/28/19 22:48; Admin Dose 0.1 MG; Start 04/23/19 at 20:00 Escitalopram Oxalate (Lexapro) 10 mg DAILY PO Last administered on 05/11/19 08:19; Admin Dose 10 MG; Start 04/24/19 at 09:00 IV Flush (NS 3 ml) 3 ml PER PROTOCOL IV ; Start 04/23/19 at 20:00 Ondansetron HCl (Zofran Inj) 4 mg Q6H PRN IV NAUSEA/VOMITING Last administered on 05/08/19 10:00; Admin Dose 4 MG; Start 04/23/19 at 20:00 Acetaminophen (Tylenol Tab) 650 mg Q6H PRN PO .PAIN 1-3 OR TEMP Last administ ered on 05/10/19 09:38; Admin Dose 650 MG; Start 04/23/19 at 20:00 Morphine Sulfate (morphine) 2 mg Q4H PRN IV .SEVERE PAIN 7-10 Last administered on 05/05/19 11:58; Admin Dose 2 MG; Start 04/23/19 at 20:00 Docusate Sodium (Colace) 100 mg Q12H PRN PO .CONSTIPATION; Start 04/23/19 at 20:00 Bisacodyl (Dulcolax) 5 mg DAILY PRN PO .CONSTIPATION; Start 04/23/19 at 20:00 Heparin Sodium (Porcine) (Heparin (5000 Units/1ml)) 5,000 unit Q8 SC Last administered on 05/11/19 14:06; Admin Dose 5,000 UNIT; Start 04/23/19 at 22:00; Status Future hold Lactobacillus Acidophilus (Florajen3 Capsule) 1 each BID PO Last administered on 05/11/19 08:20; Admin Dose 1 EACH; Start 04/23/19 at 21:00 Miscellaneous Information 1 ea NOTE XX ; Start 04/23/19 at 20:30 Glucose (Glutose) 15 gm Q15M PRN PO DECREASED GLUCOSE; Start 04/23/19 at 20:30 Glucose (Glutose) 22.5 gm Q15M PRN PO DECREASED GLUCOSE; Start 04/23/19 at 20:30 Dextrose (D50w Syringe) 25 ml Q15M PRN IV DECREASED GLUCOSE; Start 04/23/19 at 20:30 Dextrose (D50w Syringe) 50 ml Q15M PRN IV DECREASED GLUCOSE; Start 04/23/19 at 20:30 Glucagon (Glucagen) 1 mg Q15M PRN IM DECREASED GLUCOSE; Start 04/23/19 at 20:30 Glucose (Glutose) 15 gm Q15M PRN BUCCAL DECREASED GLUCOSE; Start 04/23/19 at 20:30 Miscellaneous Information (Pending [facility] Order For Wound Care) This patient munguia... PRN PRN XX WOUND CARE; Start 04/24/19 at 05:00 Amlodipine Besylate (Norvasc) 10 mg DAILY PO Last administered on 05/11/19at 08:20; Admin Dose 10 MG; Start 04/29/19 at 09:00 Pantoprazole (Protonix Tab) 40 mg DAILY@06 PO Last administered on 05/11/19at 05:00; Admin Dose 40 MG; Start 04/29/19 at 06:00 Lisinopril (Zestril) 10 mg DAILY PO Last administered on 05/11/19at 08:20; Admin Dose 10 MG; Start 04/29/19 at 09:30 Hyoscyamine (Levsin (Sl)) 0.125 mg Q4H PRN SL ab cramping; Start 04/29/19 at 12:30 Loperamide HCl (Imodium Cap) 2 mg BID PRN PO DIARRHEA; Start 04/29/19 at 12:30 Polyethylene Glycol (Miralax) 17 gm DAILY PRN PO constipation; Start 05/01/19 at 17:00 Metoclopramide HCl (Reglan) 5 mg Q6 IV Last administered on 05/11/19at 11:58; Admin Dose 5 MG; Start 05/01/19 at 18:00 Diagnostic Test (Pha) (Accu-Chek) 1 ea 02 XX ; Start 05/05/19 at 02:00 Insulin Aspart (Novolog Insulin Pen) NOVOLOG *MILD* ALGORITHM WITH MEALS BEDTIME SC ; Start 05/04/19 at 12:00 Scopolamine (Transderm-Scop) 1 patch Q72H TRANSDERM Last administered on 05/11/19at 14:07; Admin Dose 1 PATCH; Start 05/05/19 at 14:30 Prochlorperazine (Compazine Inj) 5 mg Q6H PRN IV NAUSEA AND/OR VOMITING; Start 05/06/19 at 14:30 Nystatin (Nystatin Powder) 1 applic TID TOP Last administered on 05/11/19at 12:01; Admin Dose 1 APPLIC; Start 05/06/19 at 21:00 Diagnostic Test (Pha) (Accu-Chek) 1 ea Q4 XX Last administered on 05/11/19at 05:07; Admin Dose 1 EA; Start 05/09/19 at 17:00 Total Parenteral Nutrition 1,000 ml @ 70 mls/hr [id number] IV Last administered on 05/11/19at 05:04; Admin Dose 70 MLS/HR; Start 05/10/19 at 16:00 Hydralazine HCl (Apresoline) 10 mg Q4H PRN IV sbp>160; Start 05/09/19 at 15:30 Zolpidem Tartrate (Ambien) 5 mg HS MAY REPEAT X 1 PRN PO INSOMNIA Last administered on 05/11/19at 01:47; Admin Dose 5 MG; Start 05/11/19 at 02:00 JOSEFINA LUGO NP May 11, 2019 16:03
[2019-05-11 20:00] VITALS: BP 102/46; PULSE 72; RESP 18
[2019-05-11] MEDS: ATORVASTATIN 40 MG TAB PO SCH (20:08)
[2019-05-12] MEDS: METOCLOPRAMIDE 10 MG INJ IV SCH ×5 (00:32→23:53)
[2019-05-12] MEDS: ACCU-CHEK XX SCH ×7 (00:32→20:53)
[2019-05-12 02:00] VITALS: BP 120/60; PULSE 85; RESP 17
[2019-05-12] MEDS: HEPARIN 5,000 UNIT/1 ML VIAL SC SCH ×2 (05:05→20:52)
[2019-05-12] MEDS: PANTOPRAZOLE (EC) 40 MG TAB PO SCH (05:05)
[2019-05-12 07:51] VITALS: BP 118/56; PULSE 61; RESP 18
[2019-05-12] MEDS: INSULIN ASPART [NOVOLOG] 3 ML PEN SC SCH ×4 (08:00→20:52)
--- NOTE | 2019-05-12 08:49 | PREAC ---
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 not on B-Diana Reported Medications Atorvastatin* (Atorvastatin*) 40 Mg Tablet, 40 MG PO QHS, #30 TAB 04/23/19 Escitalopram Oxalate* (Escitalopram Oxalate*) 10 Mg Tablet, 10 MG PO NEEDED, #30 TAB 04/23/19 Pantoprazole* (Pantoprazole*) 40 Mg Tablet.dr, 40 MG PO AC BREAKFAST, TAB 04/23/19 Glimepiride* (Glimepiride*) 1 Mg Tablet, 1 MG PO WITH BREAKFAST PRN for NEEDED, TAB 04/23/19 Clonidine Hcl* (Clonidine Hcl*) 0.1 Mg Tab, 0.1 MG PO TID, TAB 04/23/19 Current Medications Atorvastatin Calcium (Lipitor) 40 mg QHS PO Last administered on 05/11/19at 20:08; Admin Dose 40 MG; Start 04/23/19 at 21:00 Clonidine (Catapres) 0.1 mg TID PRN PO ELEVATED BLOOD PRESSURE Last admi nistered on 04/28/19at 22:48; Admin Dose 0.1 MG; Start 04/23/19 at 20:00 Escitalopram Oxalate (Lexapro) 10 mg DAILY PO Last administered on 05/11/19at 08:19; Admin Dose 10 MG; Start 04/24/19 at 09:00 IV Flush (NS 3 ml) 3 ml PER PROTOCOL IV ; Start 04/23/19 at 20:00 Ondansetron HCl (Zofran Inj) 4 mg Q6H PRN IV NAUSEA/VOMITING Last administered on 05/08/19at 10:00; Admin Dose 4 MG; Start 04/23/19 at 20:00 Acetaminophen (Tylenol Tab) 650 mg Q6H PRN PO .PAIN 1-3 OR TEMP Last administered on 05/10/19at 09:38; Admin Dose 650 MG; Start 04/23/19 at 20:00 Morphine Sulfate (morphine) 2 mg Q4H PRN IV .SEVERE PAIN 7-10 Last administered on 05/05/19at 11:58; Admin Dose 2 MG; Start 04/23/19 at 20:00 Docusate Sodium (Colace) 100 mg Q12H PRN PO .CONSTIPATION; Start 04/23/19 at 20:00 Bisacodyl (Dulcolax) 5 mg DAILY PRN PO .CONSTIPATION; Start 04/23/19 at 20:00 Heparin Sodium (Porcine) (Heparin (5000 Units/1ml)) 5,000 unit Q8 SC Last administered on 05/11/19at 14:06; Admin Dose 5,000 UNIT; Start 04/23/19 at 22:00; Status Hold Lactobacillus Acidophilus (Florajen3 Capsule) 1 each BID PO Last administered on 05/11/19 20:07; Admin Dose 1 EACH; Start 04/23/19 at 21:00 Miscellaneous Information 1 ea NOTE XX ; Start 04/23/19 at 20:30 Glucose (Glutose) 15 gm Q15M PRN PO DECREASED GLUCOSE; Start 04/23/19 at 20:30 Glucose (Glutose) 22.5 gm Q15M PRN PO DECREASED GLUCOSE; Start 04/23/19 at 20:30 Dextrose (D50w Syringe) 25 ml Q15M PRN IV DECREASED GLUCOSE; Start 04/23/19 at 20:30 Dextrose (D50w Syringe) 50 ml Q15M PRN IV DECREASED GLUCOSE; Start 04/23/19 at 20:30 Glucagon (Glucagen) 1 mg Q15M PRN IM DECREASED GLUCOSE; Start 04/23/19 at 20:30 Glucose (Glutose) 15 gm Q15M PRN BUCCAL DECREASED GLUCOSE; Start 04/23/19 at 20:30 Miscellaneous Information (Pending [facility] Order For Wound Care) This patient munguia... PRN PRN XX WOUND CARE; Start 04/24/19 at 05:00 Amlodipine Besylate (Norvasc) 10 mg DAILY PO Last administered on 05/11/19at 08:20; Admin Dose 10 MG; Start 04/29/19 at 09:00 Pantoprazole (Protonix Tab) 40 mg DAILY@06 PO Last administered on 05/11/19at 05:00; Admin Dose 40 MG; Start 04/29/19 at 06:00 Lisinopril (Zestril) 10 mg DAILY PO Last administered on 05/11/19at 08:20; Admin Dose 10 MG; Start 04/29/19 at 09:30 Hyoscyamine (Levsin (Sl)) 0.125 mg Q4H PRN SL ab cramping; Start 04/29/19 at 12:30 Loperamide HCl (Imodium Cap) 2 mg BID PRN PO DIARRHEA; Start 04/29/19 at 12:30 Polyethylene Glycol (Miralax) 17 gm DAILY PRN PO constipation; Start 05/01/19 at 17:00 Metoclopramide HCl (Reglan) 5 mg Q6 IV Last administered on 05/12/19 06:29; Admin Dose 5 MG; Start 05/01/19 at 18:00 Diagnostic Test (Pha) (Accu-Chek) 1 ea 02 XX ; Start 05/05/19 at 02:00 Insulin Aspart (Novolog Insulin Pen) NOVOLOG *MILD* ALGORITHM WITH MEALS BEDTIME SC ; Start 05/04/19 at 12:00 Scopolamine (Transderm-Scop) 1 patch Q72H TRANSDERM Last administered on 05/11/19at 14:07; Admin Dose 1 PATCH; Start 05/05/19 at 14:30 Prochlorperazine (Compazine Inj) 5 mg Q6H PRN IV NAUSEA AND/OR VOMITING; Start 05/06/19 at 14:30 Nystatin (Nystatin Powder) 1 applic TID TOP Last administered on 05/11/19at 20:08; Admin Dose 1 APPLIC; Start 05/06/19 at 21:00 Diagnostic Test (Pha) (Accu-Chek) 1 ea Q4 XX Last administered on 05/11/19at 05:07; Admin Dose 1 EA; Start 05/09/19 at 17:00 Total Parenteral Nutrition 1,000 ml @ 70 mls/hr [id number] IV Last administered on 05/11/19at 20:08; Admin Dose 70 MLS/HR; Start 05/10/19 at 16:00 Hydralazine HCl (Apresoline) 10 mg Q4H PRN IV sbp>160; Start 05/09/19 at 15:30 Zolpidem Tartrate (Ambien) 5 mg HS MAY REPEAT X 1 PRN PO INSOMNIA Last administered on 05/11/19at 01:47; Admin Dose 5 MG; Start 05/11/19 at 02:00 Sodium Phosphate 15 mmol/Sodium Chloride 255 ml @ 125 mls/hr ONCE IV ; Start 05/12/19 at 10:00; Stop 05/12/19 at 19:00 Meds reviewed: Yes Allergies Coded Allergies: nitrofurantoin (Unverified Allergy, Unknown, itching and skin rashes, 04/23/19) Allergies Reviewed: Yes Labs/Studies Labs Reviewed: Reviewed by anesthesiologist Result Diagram: 05/12/19 0453 05/12/19 0454 Laboratory Tests 05/12/19 04:53 05/12/19 04:54 test: Negative Pre-procedure Exam Last vitals Vital Signs Date Temp Pulse Resp B/P (MAP) Pulse Ox O2 O2 Flow FiO2 Time Delivery Rate 05/12/19 98.2 61 18 118/56 96 07:51 (76) 05/11/19 Room Air 14:00 Airway: Adequate mouth opening Mallampati: Mallampati I Teeth: Normal Lung: Normal Heart: Normal ASA Physical Status ASA physical status: 3 Emergency: E Planned Anesthetic General/MAC: MAC Pre-operative Attestations Prior to commencing anesthesia and surgery, the patient was re-evaluated, there was verification of: *The patient's identity *The results of appropriate recent lab work and preoperative vital signs *The above evaluation not changing prior to induction *Anesthetic plan, risk benefits, alternative and complications discussed with patient/family; questions answered; patient/family understands, accepts and wishes to proceed. MARIELA COATS MD May 12, 2019 08:49
[2019-05-12] MEDS ORDERED: PROPOFOL 20 ML ONE (09:10)
[2019-05-12] MEDS ORDERED: ETOMIDATE 20 MG INJ ONE (09:11)
[2019-05-12] MEDS ORDERED: CEFAZOLIN 1 GM/50 ML (PMX) 50 ML IVPB ONE (09:26)
[2019-05-12 09:36] VITALS: BP 131/48; PULSE 65; RESP 12
[2019-05-12] MEDS ORDERED: SODIUM PHOSPHATE 15 MMOL in SOD CHLORIDE 0.9% 250 ML IV SCH (10:00)
--- NOTE | 2019-05-12 10:13 | PAC ---
Date/Time of Note Date/Time of Note DATE: 05/12/19 TIME: 10:13 Post-Anesthesia Notes Post-Anesthesia Note Last documented vital signs Vital Signs Date Temp Pulse Resp B/P (MAP) Pulse Ox O2 O2 Flow FiO2 Time Delivery Rate 05/12/19 98.2 61 18 118/56 96 07:51 (76) 05/11/19 Room Air 14:00 Activity: WNL Respiratory function: WNL Cardiovascular function: WNL Mental status: Baseline Pain reasonably controlled: Yes Hydration appropriate: Yes Nausea/Vomiting absent: Yes MARIELA COATS MD May 12, 2019 10:13
[2019-05-12] MEDS: morphine 2 MG INJ IV PRN (10:41)
[2019-05-12] MEDS: ESCITALOPRAM 10 MG TAB PO SCH (10:57)
[2019-05-12] MEDS: AMLODIPINE 10 MG TAB PO SCH (10:57)
[2019-05-12] MEDS: L ACIDOPHIL/B LACTIS/B LONGUM CAPSULE PO SCH ×2 (10:57→20:52)
[2019-05-12] MEDS: LISINOPRIL 10 MG TAB PO SCH (10:57)
[2019-05-12] MEDS: NYSTATIN 30 GM POWDER BTL TOP SCH ×3 (10:58→20:53)
--- NOTE | 2019-05-12 14:26 | PN ---
Date/Time of Note Date/Time of Note DATE: 05/12/19 TIME: 14:16 Assessment/Plan VTE Prophylaxis Risk score (from [facility] [place])>0 risk: 4 SCD applied (from [facility] [place]): No SCD contraindicated: other Pharmacological prophylaxis: heparin Lines/Catheters IV Catheter Type (from [facility]): Peripheral IV Urinary Cath still in place: No Assessment/Plan Hospital Course Assessment and plan 1. Nausea and vomiting acute on chronic. - Antiemetics as needed. - GI following. - Continue on PPI - s/p peg - tube feeding per dietitian recommendations 2. UTI. - Resolved at present. - ID consult following. 3. Diarrhea. - Resolved. - On probiotics. 4. Skin tear. - Continue wound care. 5. Diabetes. - Continue insulin regimen. Adjust as needed 6. Hypertension. - Continue antihypertensives. Adjust as needed. Disposition and plan. s/p PEG placement 05/12/19. continue tube feedings per dietitian. Will advance as tolerated. Discussed POC with Dr. Hewitt Result Diagram: 05/12/19 0453 05/12/19 0454 Results 24hrs Laboratory Tests Test 05/11/19 17:38 05/11/19 19:35 05/12/19 00:34 05/12/19 04:53 Bedside Glucose 148 149 111 White Blood Count 12.6 H Red Blood Count 3.60 L Hemoglobin 9.1 L Hematocrit 30.5 L Mean Corpuscular Volume 84.7 Mean Corpuscular 25.3 L Hemoglobin Mean Corpuscular 29.8 L Hemoglobin Concent Red Cell Distribution 18.7 H Width Platelet Count 383 Mean Platelet Volume 10.2 Immature Granulocytes % 4.800 H Neutrophils % 54.7 Lymphocytes % 20.3 Monocytes % 8.0 Eosinophils % 11.6 H Basophils % 0.6 Nucleated Red Blood 0.0 Cells % Immature Granulocytes # 0.600 H Neutrophils # 6.9 Lymphocytes # 2.6 Monocytes # 1.0 H Eosinophils # 1.5 H Basophils # 0.1 Nucleated Red Blood 0.0 Cells # Phosphorus Level 2.2 L Magnesium Level 1.9 Test 05/12/19 04:54 05/12/19 04:57 05/12/19 08:10 05/12/19 09:40 Prothrombin Time 12.1 Prothrombin Time Ratio 0.9 INR International 0.89 Normalized Ratio Sodium Level 135 Potassium Level 4.1 Chloride Level 106 Carbon Dioxide Level 22 Anion Gap 7 Blood Urea Nitrogen 14 Creatinine 1.01 H Est Glomerular Filtrat 55 L Rate mL/min Glucose Level 103 Calcium Level 9.4 Bedside Glucose 120 126 80 Test 05/12/19 12:37 Bedside Glucose 86 Subjective 24 Hr Interval Summary Free Text/Dictation patient s/p peg placement. family at bedside Exam/Review of Systems Exam Vitals Vital Signs Date Temp Pulse Resp B/P (MAP) Pulse Ox O2 O2 Flow FiO2 Time Delivery Rate 05/12/19 99.6 65 12 131/48 99 Mask 8.0 09:36 (75) Intake and Output 05/11/19 05/11/19 05/12/19 1515:00 23:00 07:00 IntakeIntake Total 1640 ml 1240 ml 630 ml OutputOutput Total 900 ml 600 ml BalanceBalance 740 ml 640 ml 630 ml Exam Constitutional: alert, obese Neck: supple, non-tender Respiratory: clear to auscultation, normal air movement Cardiovascular: other (regular rate ) Gastrointestinal: soft, nontender Neurological: nl mental status, nl speech Results Results 24hrs Laboratory Tests Test 05/11/19 17:38 05/11/19 19:35 05/12/19 00:34 05/12/19 04:53 Bedside Glucose 148 149 111 White Blood Count 12.6 H Red Blood Count 3.60 L Hemoglobin 9.1 L Hematocrit 30.5 L Mean Corpuscular Volume 84.7 Mean Corpuscular 25.3 L Hemoglobin Mean Corpuscular 29.8 L Hemoglobin Concent Red Cell Distribution 18.7 H Width Platelet Count 383 Mean Platelet Volume 10.2 Immature Granulocytes % 4.800 H Neutrophils % 54.7 Lymphocytes % 20.3 Monocytes % 8.0 Eosinophils % 11.6 H Basophils % 0.6 Nucleated Red Blood 0.0 Cells % Immature Granulocytes # 0.600 H Neutrophils # 6.9 Lymphocytes # 2.6 Monocytes # 1.0 H Eosinophils # 1.5 H Basophils # 0.1 Nucleated Red Blood 0.0 Cells # Phosphorus Level 2.2 L Magnesium Level 1.9 Test 05/12/19 04:54 05/12/19 04:57 05/12/19 08:10 05/12/19 09:40 Prothrombin Time 12.1 Prothrombin Time Ratio 0.9 INR International 0.89 Normalized Ratio Sodium Level 135 Potassium Level 4.1 Chloride Level 106 Carbon Dioxide Level 22 Anion Gap 7 Blood Urea Nitrogen 14 Creatinine 1.01 H Est Glomerular Filtrat 55 L Rate mL/min Glucose Level 103 Calcium Level 9.4 Bedside Glucose 120 126 80 Test 05/12/19 12:37 Bedside Glucose 86 Medications Medication Current Medications Atorvastatin Calcium (Lipitor) 40 mg QHS PO Last administered on 05/11/19 20:08; Admin Dose 40 MG; Start 04/23/19 at 21:00 Clonidine (Catapres) 0.1 mg TID PRN PO ELEVATED BLOOD PRESSURE Last administered on 04/28/19 22:48; Admin Dose 0.1 MG; Start 04/23/19 at 20:00 Escitalopram Oxalate (Lexapro) 10 mg DAILY PO Last administered on 05/12/19 10:57; Admin Dose 10 MG; Start 04/24/19 at 09:00 IV Flush (NS 3 ml) 3 ml PER PROTOCOL IV ; Start 04/23/19 at 20:00 Ondansetron HCl (Zofran Inj) 4 mg Q6H PRN IV NAUSEA/VOMITING Last administered on 05/08/19 10:00; Admin Dose 4 MG; Start 04/23/19 at 20:00 Acetaminophen (Tylenol Tab) 650 mg Q6H PRN PO .PAIN 1-3 OR TEMP Last admi nistered on 05/10/19 09:38; Admin Dose 650 MG; Start 04/23/19 at 20:00 Morphine Sulfate (morphine) 2 mg Q4H PRN IV .SEVERE PAIN 7-10 Last administered on 05/12/19 10:41; Admin Dose 2 MG; Start 04/23/19 at 20:00 Docusate Sodium (Colace) 100 mg Q12H PRN PO .CONSTIPATION; Start 04/23/19 at 20:00 Bisacodyl (Dulcolax) 5 mg DAILY PRN PO .CONSTIPATION; Start 04/23/19 at 20:00 Heparin Sodium (Porcine) (Heparin (5000 Units/1ml)) 5,000 unit Q8 SC Last administered on 05/11/19 14:06; Admin Dose 5,000 UNIT; Start 04/23/19 at 22:00; Status Hold Lactobacillus Acidophilus (Florajen3 Capsule) 1 each BID PO Last administered on 7/5/19at 10:57; Admin Dose 1 EACH; Start 04/23/19 at 21:00 Miscellaneous Information 1 ea NOTE XX ; Start 04/23/19 at 20:30 Glucose (Glutose) 15 gm Q15M PRN PO DECREASED GLUCOSE; Start 04/23/19 at 20:30 Glucose (Glutose) 22.5 gm Q15M PRN PO DECREASED GLUCOSE; Start 04/23/19 at 20:30 Dextrose (D50w Syringe) 25 ml Q15M PRN IV DECREASED GLUCOSE; Start 04/23/19 at 20:30 Dextrose (D50w Syringe) 50 ml Q15M PRN IV DECREASED GLUCOSE; Start 04/23/19 at 20:30 Glucagon (Glucagen) 1 mg Q15M PRN IM DECREASED GLUCOSE; Start 04/23/19 at 20:30 Glucose (Glutose) 15 gm Q15M PRN BUCCAL DECREASED GLUCOSE; Start 04/23/19 at 20:30 Miscellaneous Information [facility] This patient munguia... PRN PRN XX WOUND CARE; Start 04/24/19 at 05:00 Amlodipine Besylate (Norvasc) 10 mg DAILY PO Last administered on 05/12/19at 10:57; Admin Dose 10 MG; Start 04/29/19 at 09:00 Pantoprazole (Protonix Tab) 40 mg DAILY@06 PO Last administered on 05/11/19at 05:00; Admin Dose 40 MG; Start 04/29/19 at 06:00 Lisinopril (Zestril) 10 mg DAILY PO Last administered on 05/12/19at 10:57; Admin Dose 10 MG; Start 04/29/19 at 09:30 Hyoscyamine (Levsin (Sl)) 0.125 mg Q4H PRN SL ab cramping; Start 04/29/19 at 12:30 Loperamide HCl (Imodium Cap) 2 mg BID PRN PO DIARRHEA; Start 04/29/19 at 12:30 Polyethylene Glycol (Miralax) 17 gm DAILY PRN PO constipation; Start 05/01/19 at 17:00 Metoclopramide HCl (Reglan) 5 mg Q6 IV Last administered on 05/12/19at 06:29; Admin Dose 5 MG; Start 05/01/19 at 18:00 Diagnostic Test (Pha) (Accu-Chek) 1 ea 02 XX ; Start 05/05/19 at 02:00 Insulin Aspart (Novolog Insulin Pen) NOVOLOG *MILD* ALGORITHM WITH MEALS BEDTIME SC ; Start 05/04/19 at 12:00 Scopolamine (Transderm-Scop) 1 patch Q72H TRANSDERM Last administered on 05/11/19at 14:07; Admin Dose 1 PATCH; Start 05/05/19 at 14:30 Prochlorperazine (Compazine Inj) 5 mg Q6H PRN IV NAUSEA AND/OR VOMITING; Start 05/06/19 at 14:30 Nystatin (Nystatin Powder) 1 applic TID TOP Last administered on 05/12/19at 10:58; Admin Dose 1 APPLIC; Start 05/06/19 at 21:00 Diagnostic Test (Pha) (Accu-Chek) 1 ea Q4 XX Last administered on 05/11/19at 05:07; Admin Dose 1 EA; Start 05/09/19 at 17:00 Hydralazine HCl (Apresoline) 10 mg Q4H PRN IV sbp>160; Start 05/09/19 at 15:30 Zolpidem Tartrate (Ambien) 5 mg HS MAY REPEAT X 1 PRN PO INSOMNIA Last administered on 05/11/19at 01:47; Admin Dose 5 MG; Start 05/11/19 at 02:00 Sodium Phosphate 15 mmol/Sodium Chloride 255 ml @ 125 mls/hr ONCE IV ; Start 05/12/19 at 10:00; Stop 05/12/19 at 19:00 JOSEFINA LUGO NP May 12, 2019 14:26
[2019-05-12 14:37] VITALS: BP 115/55; PULSE 69; RESP 16
[2019-05-12 20:00] VITALS: BP 118/57; PULSE 74; RESP 17
[2019-05-12] MEDS: ATORVASTATIN 40 MG TAB PO SCH (20:52)
[2019-05-12] MEDS: ZOLPIDEM 5 MG TAB PO PRN (23:19)
[2019-05-13] MEDS: ACCU-CHEK XX SCH ×7 (01:17→20:54)
[2019-05-13 02:00] VITALS: BP 117/55; PULSE 77; RESP 17
[2019-05-13] MEDS: METOCLOPRAMIDE 10 MG INJ IV SCH ×3 (05:22→17:24)
[2019-05-13] MEDS: PANTOPRAZOLE (EC) 40 MG TAB PO SCH (05:22)
[2019-05-13 07:46] VITALS: BP 119/54; PULSE 65; RESP 18
[2019-05-13] MEDS: INSULIN ASPART [NOVOLOG] 3 ML PEN SC SCH ×3 (08:00→17:24)
[2019-05-13] MEDS: AMLODIPINE 10 MG TAB PO SCH (09:52)
[2019-05-13] MEDS: LISINOPRIL 10 MG TAB PO SCH (09:52)
[2019-05-13] MEDS: ESCITALOPRAM 10 MG TAB PO SCH (09:52)
[2019-05-13] MEDS: L ACIDOPHIL/B LACTIS/B LONGUM CAPSULE PO SCH ×2 (09:53→20:54)
[2019-05-13] MEDS: NYSTATIN 30 GM POWDER BTL TOP SCH ×3 (09:53→20:58)
[2019-05-13] MEDS: HEPARIN 5,000 UNIT/1 ML VIAL SC SCH ×2 (09:56→20:56)
--- NOTE | 2019-05-13 14:37 | PN ---
Date/Time of Note Date/Time of Note DATE: 05/13/19 TIME: 14:35 Assessment/Plan VTE Prophylaxis Risk score (from [facility] [place])>0 risk: 7 SCD applied (from [facility]): No SCD contraindicated: other Pharmacological prophylaxis: heparin Lines/Catheters IV Catheter Type (from [facility]): Mid Line Urinary Cath still in place: No Assessment/Plan Hospital Course Assessment and plan 1. Nausea and vomiting acute on chronic. - Antiemetics as needed. - GI following. - Continue on PPI - s/p peg - tube feeding per dietitian recommendations 2. UTI. - Resolved at present. - ID consult following. 3. Diarrhea. - Resolved. - On probiotics. 4. Skin tear. - Continue wound care. 5. Diabetes. - Continue insulin regimen. Adjust as needed 6. Hypertension. - Continue antihypertensives. Adjust as needed. Disposition and plan. s/p PEG placement 05/12/19. continue to advance tube feedings as tolerated. d/c planning Discussed POC with Dr. Hewitt Result Diagram: 05/13/19 0554 05/13/19 0554 Results 24hrs Laboratory Tests Test 05/12/19 17:37 05/12/19 19:50 05/12/19 22:00 05/13/19 01:13 Bedside Glucose 85 111 97 Blood Gas Specimen Blood arterial Source Arterial Blood 05/12/2019 2:30:38 Date Drawn PM Arterial Blood pH 7.433 (Temp corrected) Arterial Blood 32.8 L pCO2 (Temp correct) Arterial Blood pO2 88.3 (Temp corrected) Arterial Blood 21.4 L HCO3 Arterial Blood -2.3 Base Excess Arterial Blood 96.8 Oxygen Saturation New Test ACCEPTAB Arterial Blood Gas Left Radial Puncture Site Arterial 0.2 Blood Carboxyhemog lobin Arterial Blood 0.1 Methemoglobin Blood Gas A-a O2 22.2 Differential Oxyhemoglobin 96.5 Percent Blood Gas 37.0 Temperature Blood Gas Modality ROOM AIR FiO2 21.0 Blood Gas Notified TM Whom Blood Gas Notified 05/12/2019 2:42:16 Time PM Test 05/13/19 05:21 05/13/19 05:54 05/13/19 08:12 05/13/19 11:51 Bedside Glucose 96 118 124 White Blood Count 14.6 H Red Blood Count 3.62 L Hemoglobin 9.1 L Hematocrit 29.8 L Mean Corpuscular 82.3 Volume Mean Corpuscular 25.1 L Hemoglobin Mean Corpuscular 30.5 L Hemoglobin Concent Red Cell 18.6 H Distribution Width Platelet Count 428 H Mean Platelet 10.4 Volume Immature 4.600 H Granulocytes % Neutrophils % 62.5 Lymphocytes % 15.5 Monocytes % 7.5 Eosinophils % 9.4 H Basophils % 0.5 Nucleated Red 0.0 Blood Cells % Immature 0.670 H Granulocytes # Neutrophils # 9.2 H Lymphocytes # 2.3 Monocytes # 1.1 H Eosinophils # 1.4 H Basophils # 0.1 Nucleated Red 0.0 Blood Cells # Sodium Level 135 Potassium Level 4.5 Chloride Level 107 Carbon Dioxide 20 L Level Anion Gap 8 Blood Urea 16 Nitrogen Creatinine 0.97 Est Glomerular 58 L Filtrat Rate mL/min Glucose Level 87 Calcium Level 9.1 Phosphorus Level 3.0 Magnesium Level 1.7 Subjective 24 Hr Interval Summary Free Text/Dictation no reports of nausea/vomiting today Exam/Review of Systems Exam Vitals Vital Signs Date Temp Pulse Resp B/P (MAP) Pulse Ox O2 O2 Flow FiO2 Time Delivery Rate 05/13/19 97.8 65 18 119/54 97 07:46 (75) 05/12/19 Mask 8.0 09:36 Intake and Output 05/12/19 05/12/19 05/13/19 1515:00 23:00 07:00 IntakeIntake Total 300 ml 855 ml BalanceBalance 300 ml 855 ml Exam Constitutional: alert, obese Neck: supple, non-tender Respiratory: clear to auscultation, normal air movement Cardiovascular: other (regular rate ) Gastrointestinal: soft, nontender Neurological: nl mental status, nl speech Results Results 24hrs Laboratory Tests Test 05/12/19 17:37 05/12/19 19:50 05/12/19 22:00 05/13/19 01:13 Bedside Glucose 85 111 97 Blood Gas Specimen Blood arterial Source Arterial Blood 05/12/2019 2:30:38 Date Drawn PM Arterial Blood pH 7.433 (Temp corrected) Arterial Blood 32.8 L pCO2 (Temp correct) Arterial Blood pO2 88.3 (Temp corrected) Arterial Blood 21.4 L HCO3 Arterial Blood -2.3 Base Excess Arterial Blood 96.8 Oxygen Saturation New Test ACCEPTAB Arterial Blood Gas Left Radial Puncture Site Arterial 0.2 Blood Carboxyhemog lobin Arterial Blood 0.1 Methemoglobin Blood Gas A-a O2 22.2 Differential Oxyhemoglobin 96.5 Percent Blood Gas 37.0 Temperature Blood Gas Modality ROOM AIR FiO2 21.0 Blood Gas Notified TM Whom Blood Gas Notified 05/12/2019 2:42:16 Time PM Test 05/13/19 05:21 05/13/19 05:54 05/13/19 08:12 05/13/19 11:51 Bedside Glucose 96 118 124 White Blood Count 14.6 H Red Blood Count 3.62 L Hemoglobin 9.1 L Hematocrit 29.8 L Mean Corpuscular 82.3 Volume Mean Corpuscular 25.1 L Hemoglobin Mean Corpuscular 30.5 L Hemoglobin Concent Red Cell 18.6 H Distribution Width Platelet Count 428 H Mean Platelet 10.4 Volume Immature 4.600 H Granulocytes % Neutrophils % 62.5 Lymphocytes % 15.5 Monocytes % 7.5 Eosinophils % 9.4 H Basophils % 0.5 Nucleated Red 0.0 Blood Cells % Immature 0.670 H Granulocytes # Neutrophils # 9.2 H Lymphocytes # 2.3 Monocytes # 1.1 H Eosinophils # 1.4 H Basophils # 0.1 Nucleated Red 0.0 Blood Cells # Sodium Level 135 Potassium Level 4.5 Chloride Level 107 Carbon Dioxide 20 L Level Anion Gap 8 Blood Urea 16 Nitrogen Creatinine 0.97 Est Glomerular 58 L Filtrat Rate mL/min Glucose Level 87 Calcium Level 9.1 Phosphorus Level 3.0 Magnesium Level 1.7 Medications Medication Current Medications Atorvastatin Calcium (Lipitor) 40 mg QHS PO Last administered on 05/12/19at 20:52; Admin Dose 40 MG; Start 04/23/19 at 21:00 Clonidine (Catapres) 0.1 mg TID PRN PO ELEVATED BLOOD PRESSURE Last administered on 04/28/19at 22:48; Admin Dose 0.1 MG; Start 04/23/19 at 20:00 Escitalopram Oxalate (Lexapro) 10 mg DAILY PO Last administered on 05/13/19at 09 :52; Admin Dose 10 MG; Start 04/24/19 at 09:00 IV Flush (NS 3 ml) 3 ml PER PROTOCOL IV ; Start 04/23/19 at 20:00 Ondansetron HCl (Zofran Inj) 4 mg Q6H PRN IV NAUSEA/VOMITING Last administered on 05/08/19at 10:00; Admin Dose 4 MG; Start 04/23/19 at 20:00 Acetaminophen (Tylenol Tab) 650 mg Q6H PRN PO .PAIN 1-3 OR TEMP Last administered on 05/10/19at 09:38; Admin Dose 650 MG; Start 04/23/19 at 20:00 Morphine Sulfate (morphine) 2 mg Q4H PRN IV .SEVERE PAIN 7-10 Last administered on 05/12/19 10:41; Admin Dose 2 MG; Start 04/23/19 at 20:00 Docusate Sodium (Colace) 100 mg Q12H PRN PO .CONSTIPATION Last administered on 05/13/19 05:22; Admin Dose 100 MG; Start 04/23/19 at 20:00 Bisacodyl (Dulcolax) 5 mg DAILY PRN PO .CONSTIPATION; Start 04/23/19 at 20:00 Lactobacillus Acidophilus (Florajen3 Capsule) 1 each BID PO Last administered on 05/13/19 09:53; Admin Dose 1 EACH; Start 04/23/19 at 21:00 Miscellaneous Information 1 ea NOTE XX ; Start 04/23/19 at 20:30 Glucose (Glutose) 15 gm Q15M PRN PO DECREASED GLUCOSE; Start 04/23/19 at 20:30 Glucose (Glutose) 22.5 gm Q15M PRN PO DECREASED GLUCOSE; Start 04/23/19 at 20:30 Dextrose (D50w Syringe) 25 ml Q15M PRN IV DECREASED GLUCOSE; Start 04/23/19 at 20:30 Dextrose (D50w Syringe) 50 ml Q15M PRN IV DECREASED GLUCOSE; Start 04/23/19 at 20:30 Glucagon (Glucagen) 1 mg Q15M PRN IM DECREASED GLUCOSE; Start 04/23/19 at 20:30 Glucose (Glutose) 15 gm Q15M PRN BUCCAL DECREASED GLUCOSE; Start 04/23/19 at 20:30 Miscellaneous Information (Pending [facility] Order For Wound Care) This patient munguia... PRN PRN XX WOUND CARE; Start 04/24/19 at 05:00 Amlodipine Besylate (Norvasc) 10 mg DAILY PO Last administered on 05/13/19at 09:52; Admin Dose 10 MG; Start 04/29/19 at 09:00 Pantoprazole (Protonix Tab) 40 mg DAILY@06 PO Last administered on 05/13/19 05:22; Admin Dose 40 MG; Start 04/29/19 at 06:00 Lisinopril (Zestril) 10 mg DAILY PO Last administered on 05/13/19 09:52; Admin Dose 10 MG; Start 04/29/19 at 09:30 Hyoscyamine (Levsin (Sl)) 0.125 mg Q4H PRN SL ab cramping; Start 04/29/19 at 12:30 Loperamide HCl (Imodium Cap) 2 mg BID PRN PO DIARRHEA; Start 04/29/19 at 12:30 Polyethylene Glycol (Miralax) 17 gm DAILY PRN PO constipation; Start 05/01/19 at 17:00 Metoclopramide HCl (Reglan) 5 mg Q6 IV Last administered on 05/13/19 11:52; Admin Dose 5 MG; Start 05/01/19 at 18:00 Diagnostic Test (Pha) (Accu-Chek) 1 ea 02 XX ; Start 05/05/19 at 02:00 Insulin Aspart (Novolog Insulin Pen) NOVOLOG *MILD* ALGORITHM WITH MEALS BEDTIME SC ; Start 05/04/19 at 12:00 Scopolamine (Transderm-Scop) 1 patch Q72H TRANSDERM Last administered on 05/11/19 14:07; Admin Dose 1 PATCH; Start 05/05/19 at 14:30 Prochlorperazine (Compazine Inj) 5 mg Q6H PRN IV NAUSEA AND/OR VOMITING; Start 05/06/19 at 14:30 Nystatin (Nystatin Powder) 1 applic TID TOP Last administered on 05/13/19 09:53; Admin Dose 1 APPLIC; Start 05/06/19 at 21:00 Diagnostic Test (Pha) (Accu-Chek) 1 ea Q4 XX Last administered on 05/13/19 05:29; Admin Dose 1 EA; Start 05/09/19 at 17:00 Hydralazine HCl (Apresoline) 10 mg Q4H PRN IV sbp>160; Start 05/09/19 at 15:30 Zolpidem Tartrate (Ambien) 5 mg HS MAY REPEAT X 1 PRN PO INSOMNIA Last administered on 05/12/19 23:19; Admin Dose 5 MG; Start 05/11/19 at 02:00 Heparin Sodium (Porcine) (Heparin (5000 Units/1ml)) 5,000 unit BID SC Last administered on 05/13/19at 09:56; Admin Dose 5,000 UNIT; Start 05/12/19 at 21:00 JOSEFINA LUGO NP May 13, 2019 14:37
[2019-05-13 14:44] VITALS: BP 107/58; PULSE 78; RESP 16
--- NOTE | 2019-05-13 15:27 | PN ---
Date/Time of Note Date/Time of Note DATE: 05/13/19 TIME: 15:24 Assessment/Plan VTE Prophylaxis Risk score (from Ns)>0 risk: 7 [place] [facility] [place] contraindicated: other (scds) Pharmacological prophylaxis: other (scds) Lines/Catheters IV C[facility]ter Type (from [facility] Mid Line Urinary Cath still in place: No Assessment/Plan Hospital Course Assessment: Poor appetite- not meet daily caloric needs -05/12/2019 S/p uneventful 20 [place] PEG placement Nausea/vomiting- unclear etiology EGD 04/28/2019 Moderate distal esophagitis. Moderate gastritis. Rule out internal infection. Biopsies obtained. Evidence of previous gastrostomy tube site well-healed. Otherwise normal EGD. Gastric biopsies-negative for H. pylori organisms, no dysplasia or intestinal metaplasia is identified, patchy minimal chronic inflammation Diarrhea- possibly 2/2 to antibiotics - resolved Colonoscopy 04/28/2019 3 mm sessile polyp in the ascending colon, ablated. Moderate diverticulosis of the colon. Moderate-sized internal and large external hemorrhoids. Otherwise normal colonoscopy Ascending colon polyp, biopsy: tubular adenoma Repeat colonoscopy in 5 years -Stool studies COLIFORM, ELYSSA ALBICANS -CDIFF- Negative -O&P- Negative Normocytic anemia Abdominal cramping- improved UTI -ID following- treated DM Dyslipidemia HTN Leukocytosis Plan: TF to goal rate as tolerated PEG care BID and PRN Encourage PO intake- D/c planning per hospitalist PEG must stay in at least 4wks prior to removal Patient seen in collaboration with Dr. Vasquez Subjective: Course reviewed with nursing staff Patient interviewed and examined All labs, imaging and other results reviewed Pt is tolerating TF well, no c/o nausea. In fact she now has a better appetite post PEG insertion. No over night events. Physical exam: Constitutional: alert, oriented, obese Psych: no complaints Head: normocephalic, atraumatic Eyes: nl conjunctiva ENMT: nl external ears & nose, nl lips & teeth Neck: supple, non-tender Respiratory: normal air movement Gastrointestinal: soft, other (morbidly obese, rotund abdomen, prior g tube scar), g-tube in place Musculoskeletal: nl extremities to inspection Result Diagram: 05/13/19 0554 05/13/19 0554 Results 24hrs Laboratory Tests Test 05/12/19 17:37 05/12/19 19:50 05/12/19 22:00 05/13/19 01:13 Bedside Glucose 85 111 97 Blood Gas Specimen Blood arterial Source Arterial Blood 05/12/2019 2:30:38 Date Drawn PM Arterial Blood pH 7.433 (Temp corrected) Arterial Blood 32.8 L pCO2 (Temp correct) Arterial Blood pO2 88.3 (Temp corrected) Arterial Blood 21.4 L HCO3 Arterial Blood -2.3 Base Excess Arterial Blood 96.8 Oxygen Saturation New Test ACCEPTAB Arterial Blood Gas Left Radial Puncture Site Arterial 0.2 Blood Carboxyhemog lobin Arterial Blood 0.1 Methemoglobin Blood Gas A-a O2 22.2 Differential Oxyhemoglobin 96.5 Percent Blood Gas 37.0 Temperature Blood Gas Modality ROOM AIR FiO2 21.0 Blood Gas Notified TM Whom Blood Gas Notified 05/12/2019 2:42:16 Time PM Test 05/13/19 05:21 05/13/19 05:54 05/13/19 08:12 05/13/19 11:51 Bedside Glucose 96 118 124 White Blood Count 14.6 H Red Blood Count 3.62 L Hemoglobin 9.1 L Hematocrit 29.8 L Mean Corpuscular 82.3 Volume Mean Corpuscular 25.1 L Hemoglobin Mean Corpuscular 30.5 L Hemoglobin Concent Red Cell 18.6 H Distribution Width Platelet Count 428 H Mean Platelet 10.4 Volume Immature 4.600 H Granulocytes % Neutrophils % 62.5 Lymphocytes % 15.5 Monocytes % 7.5 Eosinophils % 9.4 H Basophils % 0.5 Nucleated Red 0.0 Blood Cells % Immature 0.670 H Granulocytes # Neutrophils # 9.2 H Lymphocytes # 2.3 Monocytes # 1.1 H Eosinophils # 1.4 H Basophils # 0.1 Nucleated Red 0.0 Blood Cells # Sodium Level 135 Potassium Level 4.5 Chloride Level 107 Carbon Dioxide 20 L Level Anion Gap 8 Blood Urea 16 Nitrogen Creatinine 0.97 Est Glomerular 58 L Filtrat Rate mL/min Glucose Level 87 Calcium Level 9.1 Phosphorus Level 3.0 Magnesium Level 1.7 Exam/Review of Systems Exam Vitals Vital Signs Date Temp Pulse Resp B/P (MAP) Pulse Ox O2 O2 Flow FiO2 Time Delivery Rate 05/13/19 98.1 78 16 107/58 96 14:44 (74) 05/12/19 Mask 8.0 09:36 Intake and Output 05/12/19 05/12/19 05/13/19 1515:00 23:00 07:00 IntakeIntake Total 300 ml 855 ml BalanceBalance 300 ml 855 ml Results Results 24hrs Laboratory Tests Test 05/12/19 17:37 05/12/19 19:50 05/12/19 22:00 05/13/19 01:13 Bedside Glucose 85 111 97 Blood Gas Specimen Blood arterial Source Arterial Blood 05/12/2019 2:30:38 Date Drawn PM Arterial Blood pH 7.433 (Temp corrected) Arterial Blood 32.8 L pCO2 (Temp correct) Arterial Blood pO2 88.3 (Temp corrected) Arterial Blood 21.4 L HCO3 Arterial Blood -2.3 Base Excess Arterial Blood 96.8 Oxygen Saturation New Test ACCEPTAB Arterial Blood Gas Left Radial Puncture Site Arterial 0.2 Blood Carboxyhemog lobin Arterial Blood 0.1 Methemoglobin Blood Gas A-a O2 22.2 Differential Oxyhemoglobin 96.5 Percent Blood Gas 37.0 Temperature Blood Gas Modality ROOM AIR FiO2 21.0 Blood Gas Notified TM Whom Blood Gas Notified 05/12/2019 2:42:16 Time PM Test 05/13/19 05:21 05/13/19 05:54 05/13/19 08:12 05/13/19 11:51 Bedside Glucose 96 118 124 White Blood Count 14.6 H Red Blood Count 3.62 L Hemoglobin 9.1 L Hematocrit 29.8 L Mean Corpuscular 82.3 Volume Mean Corpuscular 25.1 L Hemoglobin Mean Corpuscular 30.5 L Hemoglobin Concent Red Cell 18.6 H Distribution Width Platelet Count 428 H Mean Platelet 10.4 Volume Immature 4.600 H Granulocytes % Neutrophils % 62.5 Lymphocytes % 15.5 Monocytes % 7.5 Eosinophils % 9.4 H Basophils % 0.5 Nucleated Red 0.0 Blood Cells % Immature 0.670 H Granulocytes # Neutrophils # 9.2 H Lymphocytes # 2.3 Monocytes # 1.1 H Eosinophils # 1.4 H Basophils # 0.1 Nucleated Red 0.0 Blood Cells # Sodium Level 135 Potassium Level 4.5 Chloride Level 107 Carbon Dioxide 20 L Level Anion Gap 8 Blood Urea 16 Nitrogen Creatinine 0.97 Est Glomerular 58 L Filtrat Rate mL/min Glucose Level 87 Calcium Level 9.1 Phosphorus Level 3.0 Magnesium Level 1.7 Medications Medication Current Medications Atorvastatin Calcium (Lipitor) 40 mg QHS PO Last administered on 05/12/19 20:52; Admin Dose 40 MG; Start 04/23/19 at 21:00 Clonidine (Catapres) 0.1 mg TID PRN PO ELEVATED BLOOD PRESSURE Last administered on 04/28/19 22:48; Admin Dose 0.1 MG; Start 04/23/19 at 20:00 Escitalopram Oxalate (Lexapro) 10 mg DAILY PO Last administered on 05/13/19 09:52; Admin Dose 10 MG; Start 04/24/19 at 09:00 IV Flush (NS 3 ml) 3 ml PER PROTOCOL IV ; Start 04/23/19 at 20:00 Ondansetron HCl (Zofran Inj) 4 mg Q6H PRN IV NAUSEA/VOMITING Last administered on 05/08/19 10:00; Admin Dose 4 MG; Start 04/23/19 at 20:00 Acetaminophen (Tylenol Tab) 650 mg Q6H PRN PO .PAIN 1-3 OR TEMP Last administered on 05/10/19 09:38; Admin Dose 650 MG; Start 04/23/19 at 20:00 Morphine Sulfate (morphine) 2 mg Q4H PRN IV .SEVERE PAIN 7-10 Last administered on 05/12/19 10:41; Admin Dose 2 MG; Start 04/23/19 at 20:00 Docusate Sodium (Colace) 100 mg Q12H PRN PO .CONSTIPATION Last administered on 05/13/19 05:22; Admin Dose 100 MG; Start 04/23/19 at 20:00 Bisacodyl (Dulcolax) 5 mg DAILY PRN PO .CONSTIPATION; Start 04/23/19 at 20:00 Lactobacillus Acidophilus (Florajen3 Capsule) 1 each BID PO Last administered on 05/13/19 09:53; Admin Dose 1 EACH; Start 04/23/19 at 21:00 Miscellaneous Information 1 ea NOTE XX ; Start 04/23/19 at 20:30 Glucose (Glutose) 15 gm Q15M PRN PO DECREASED GLUCOSE; Start 04/23/19 at 20:30 Glucose (Glutose) 22.5 gm Q15M PRN PO DECREASED GLUCOSE; Start 04/23/19 at 20:30 Dextrose (D50w Syringe) 25 ml Q15M PRN IV DECREASED GLUCOSE; Start 04/23/19 at 20:30 Dextrose (D50w Syringe) 50 ml Q15M PRN IV DECREASED GLUCOSE; Start 04/23/19 at 20:30 Glucagon (Glucagen) 1 mg Q15M PRN IM DECREASED GLUCOSE; Start 04/23/19 at 20:30 Glucose (Glutose) 15 gm Q15M PRN BUCCAL DECREASED GLUCOSE; Start 04/23/19 at 20:30 Miscellaneous Information (Pending [facility] Order For Wound Care) This patient munguia... PRN PRN XX WOUND CARE; Start 04/24/19 at 05:00 Amlodipine Besylate (Norvasc) 10 mg DAILY PO Last administered on 05/13/19at 09:52; Admin Dose 10 MG; Start 04/29/19 at 09:00 Pantoprazole (Protonix Tab) 40 mg DAILY@06 PO Last administered on 05/13/19at 05:22; Admin Dose 40 MG; Start 04/29/19 at 06:00 Lisinopril (Zestril) 10 mg DAILY PO Last administered on 05/13/19at 09:52; Admin Dose 10 MG; Start 04/29/19 at 09:30 Hyoscyamine (Levsin (Sl)) 0.125 mg Q4H PRN SL ab cramping; Start 04/29/19 at 12:30 Loperamide HCl (Imodium Cap) 2 mg BID PRN PO DIARRHEA; Start 04/29/19 at 12:30 Polyethylene Glycol (Miralax) 17 gm DAILY PRN PO constipation; Start 05/01/19 at 17:00 Metoclopramide HCl (Reglan) 5 mg Q6 IV Last administered on 05/13/19at 11:52; Admin Dose 5 MG; Start 05/01/19 at 18:00 Diagnostic Test (Pha) (Accu-Chek) 1 ea 02 XX ; Start 05/05/19 at 02:00 Insulin Aspart (Novolog Insulin Pen) NOVOLOG *MILD* ALGORITHM WITH MEALS BEDTIME SC ; Start 05/04/19 at 12:00 Scopolamine (Transderm-Scop) 1 patch Q72H TRANSDERM Last administered on 05/11/19at 14:07; Admin Dose 1 PATCH; Start 05/05/19 at 14:30 Prochlorperazine (Compazine Inj) 5 mg Q6H PRN IV NAUSEA AND/OR VOMITING; Start 05/06/19 at 14:30 Nystatin (Nystatin Powder) 1 applic TID TOP Last administered on 05/13/19at 09:53; Admin Dose 1 APPLIC; Start 05/06/19 at 21:00 Diagnostic Test (Pha) (Accu-Chek) 1 ea Q4 XX Last administered on 05/13/19 05:29; Admin Dose 1 EA; Start 05/09/19 at 17:00 Hydralazine HCl (Apresoline) 10 mg Q4H PRN IV sbp>160; Start 05/09/19 at 15:30 Zolpidem Tartrate (Ambien) 5 mg HS MAY REPEAT X 1 PRN PO INSOMNIA Last administered on 05/12/19at 23:19; Admin Dose 5 MG; Start 05/11/19 at 02:00 Heparin Sodium (Porcine) (Heparin (5000 Units/1ml)) 5,000 unit BID SC Last administered on 05/13/19at 09:56; Admin Dose 5,000 UNIT; Start 05/12/19 at 21:00 BALTA HENDERSON May 13, 2019 15:27
[2019-05-13 20:04] VITALS: BP 137/60; PULSE 91; RESP 20
[2019-05-13] MEDS: ATORVASTATIN 40 MG TAB PO SCH (20:54)
[2019-05-13] MEDS: Insulin NOVOLOG SS MILD Algorithm (NPO/TPN/ENTERAL FEEDS) SC SCH (20:54)
[2019-05-13] MEDS: ZOLPIDEM 5 MG TAB PO PRN (20:56)
[2019-05-13] MEDS ORDERED: INSULIN ASPART [NOVOLOG] 3 ML PEN SC SCH (21:00)
[2019-05-14] MEDS: ACCU-CHEK XX SCH ×7 (00:44→20:26)
[2019-05-14] MEDS: Insulin NOVOLOG SS MILD Algorithm (NPO/TPN/ENTERAL FEEDS) SC SCH ×6 (01:00→20:26)
[2019-05-14 02:27] VITALS: BP 136/71; PULSE 88; RESP 21
[2019-05-14] MEDS: PANTOPRAZOLE (EC) 40 MG TAB PO SCH (05:27)
[2019-05-14] MEDS: METOCLOPRAMIDE 10 MG INJ IV SCH ×4 (05:27→17:39)
[2019-05-14 08:09] VITALS: BP 136/63; PULSE 85; RESP 18
[2019-05-14] MEDS: ESCITALOPRAM 10 MG TAB PO SCH (08:36)
[2019-05-14] MEDS: L ACIDOPHIL/B LACTIS/B LONGUM CAPSULE PO SCH ×2 (08:36→20:17)
[2019-05-14] MEDS: LISINOPRIL 10 MG TAB PO SCH (08:37)
[2019-05-14] MEDS: AMLODIPINE 10 MG TAB PO SCH (08:37)
[2019-05-14] MEDS: HEPARIN 5,000 UNIT/1 ML VIAL SC SCH ×2 (08:40→20:19)
[2019-05-14] MEDS: NYSTATIN 30 GM POWDER BTL TOP SCH ×3 (08:43→20:26)
--- NOTE | 2019-05-14 12:50 | PN ---
Date/Time of Note Date/Time of Note DATE: 05/14/19 TIME: 12:47 Assessment/Plan VTE Prophylaxis Risk score (from Ns)>0 risk: 7 SCD applied (from [facility] [place]): No SCD contraindicated: other (scds) Pharmacological prophylaxis: other (scds) Lines/Catheters IV Catheter Type (from [facility]): Mid Line Urinary Cath still in place: No Assessment/Plan Hospital Course Assessment: Poor appetite- not meet daily caloric needs -05/12/2019 S/p uneventful 20 [place] PEG placement Nausea/vomiting- unclear etiology EGD 04/28/2019 Moderate distal esophagitis. Moderate gastritis. Rule out internal infection. Biopsies obtained. Evidence of previous gastrostomy tube site well-healed. Otherwise normal EGD. Gastric biopsies-negative for H. pylori organisms, no dysplasia or intestinal metaplasia is identified, patchy minimal chronic inflammation Diarrhea- possibly 2/2 to antibiotics - resolved Colonoscopy 04/28/2019 3 mm sessile polyp in the ascending colon, ablated. Moderate diverticulosis of the colon. Moderate-sized internal and large external hemorrhoids. Otherwise normal colonoscopy Ascending colon polyp, biopsy: tubular adenoma Repeat colonoscopy in 5 years -Stool studies COLIFORM, ELYSSA ALBICANS -CDIFF- Negative -O&P- Negative Normocytic anemia Abdominal cramping- improved UTI -ID following- treated DM Dyslipidemia HTN Leukocytosis Plan: TF to goal rate as tolerated PEG care BID and PRN Encourage PO intake- D/c planning per hospitalist PEG must stay in at least 4wks prior to removal GI will sign off but will be available upon reconsult as needed Patient seen in collaboration with Dr. Vasquez Subjective: Course reviewed with nursing staff Patient interviewed and examined All labs, imaging and other results reviewed Pt continues to have poor PO intake, no further c/o nausea/vomiting She is tolerating TF well. No over night events Physical exam: Constitutional: alert, oriented, obese Psych: no complaints Head: normocephalic, atraumatic Eyes: nl conjunctiva ENMT: nl external ears & nose, nl lips & teeth Neck: supple, non-tender Respiratory: normal air movement Gastrointestinal: soft, other (morbidly obese, rotund abdomen, prior g tube scar), g-tube in place Musculoskeletal: nl extremities to inspection Result Diagram: 05/14/19 0425 05/14/19 0425 Results 24hrs Laboratory Tests Test 05/13/19 17:23 05/13/19 20:53 05/14/19 01:08 05/14/19 04:25 Bedside Glucose 100 117 103 White Blood Count 15.5 H Red Blood Count 3.20 L Hemoglobin 8.1 L Hematocrit 26.1 L Mean Corpuscular Volume 81.6 L Mean Corpuscular 25.3 L Hemoglobin Mean Corpuscular 31.0 L Hemoglobin Concent Red Cell Distribution 18.6 H Width Platelet Count 471 H Mean Platelet Volume 10.2 Immature Granulocytes % 5.600 H Neutrophils % Segmented Neutrophils 64 % (Manual) Band Neutrophils % 3 (Manual) Lymphocytes % Lymphocytes % (Manual) 18 Reactive Lymphocytes 1 H % (Manual) Monocytes % Monocytes % (Manual) 6 Eosinophils % Eosinophils % (Manual) 4 Basophils % Metamyelocytes % 1 H (manual) Myelocytes % (Manual) 3 H Nucleated Red Blood 0.1 H Cells % Immature Granulocytes # 0.870 H Neutrophils # Neutrophils # (Manual) 10.0 H Band Neutrophils # 0.4 Lymphocytes (Manual) 2.7 Lymphocytes # Reactive Lymphocytes # 0.1 H Monocytes # Monocytes # (Manual) 0.9 Eosinophils # Basophils # Metamyelocytes # 0.1 H Myelocytes # 0.4 H Nucleated Red Blood Cells # Platelet Estimate NORMAL Giant Platelets 1 H Polychromasia 3+ Poikilocytosis 1+ Anisocytosis 1+ Microcytosis 1+ Target Cells 1+ Sodium Level 135 Potassium Level 4.6 Chloride Level 106 Carbon Dioxide Level 26 Anion Gap 3 L Blood Urea Nitrogen 21 H Creatinine 1.07 H Est Glomerular Filtrat 51 L Rate mL/min Glucose Level 103 Calcium Level 9.3 Test 05/14/19 04:55 05/14/19 08:35 Bedside Glucose 106 113 Exam/Review of Systems Exam Vitals Vital Signs Date Temp Pulse Resp B/P (MAP) Pulse Ox O2 O2 Flow FiO2 Time Delivery Rate 05/14/19 98.6 85 18 136/63 98 Room Air 08:09 (87) 05/12/19 8.0 09:36 Intake and Output 05/13/19 05/13/19 05/14/19 1515:00 23:00 07:00 IntakeIntake Total 120 ml 420 ml 1370 ml BalanceBalance 120 ml 420 ml 1370 ml Results Results 24hrs Laboratory Tests Test 05/13/19 17:23 05/13/19 20:53 05/14/19 01:08 05/14/19 04:25 Bedside Glucose 100 117 103 White Blood Count 15.5 H Red Blood Count 3.20 L Hemoglobin 8.1 L Hematocrit 26.1 L Mean Corpuscular Volume 81.6 L Mean Corpuscular 25.3 L Hemoglobin Mean Corpuscular 31.0 L Hemoglobin Concent Red Cell Distribution 18.6 H Width Platelet Count 471 H Mean Platelet Volume 10.2 Immature Granulocytes % 5.600 H Neutrophils % Segmented Neutrophils 64 % (Manual) Band Neutrophils % 3 (Manual) Lymphocytes % Lymphocytes % (Manual) 18 Reactive Lymphocytes 1 H % (Manual) Monocytes % Monocytes % (Manual) 6 Eosinophils % Eosinophils % (Manual) 4 Basophils % Metamyelocytes % 1 H (manual) Myelocytes % (Manual) 3 H Nucleated Red Blood 0.1 H Cells % Immature Granulocytes # 0.870 H Neutrophils # Neutrophils # (Manual) 10.0 H Band Neutrophils # 0.4 Lymphocytes (Manual) 2.7 Lymphocytes # Reactive Lymphocytes # 0.1 H Monocytes # Monocytes # (Manual) 0.9 Eosinophils # Basophils # Metamyelocytes # 0.1 H Myelocytes # 0.4 H Nucleated Red Blood Cells # Platelet Estimate NORMAL Giant Platelets 1 H Polychromasia 3+ Poikilocytosis 1+ Anisocytosis 1+ Microcytosis 1+ Target Cells 1+ Sodium Level 135 Potassium Level 4.6 Chloride Level 106 Carbon Dioxide Level 26 Anion Gap 3 L Blood Urea Nitrogen 21 H Creatinine 1.07 H Est Glomerular Filtrat 51 L Rate mL/min Glucose Level 103 Calcium Level 9.3 Test 05/14/19 04:55 05/14/19 08:35 Bedside Glucose 106 113 Medications Medication Current Medications Atorvastatin Calcium (Lipitor) 40 mg QHS PO Last administered on 05/13/19at 20:54; Admin Dose 40 MG; Start 04/23/19 at 21:00 Clonidine (Catapres) 0.1 mg TID PRN PO ELEVATED BLOOD PRESSURE Last administered on 04/28/19at 22:48; Admin Dose 0.1 MG; Start 04/23/19 at 20:00 Escitalopram Oxalate (Lexapro) 10 mg DAILY PO Last administered on 05/14/19at 08:36; Admin Dose 10 MG; Start 04/24/19 at 09:00 IV Flush (NS 3 ml) 3 ml PER PROTOCOL IV ; Start 04/23/19 at 20:00 Ondansetron HCl (Zofran Inj) 4 mg Q6H PRN IV NAUSEA/VOMITING Last administered on 05/08/19 10:00; Admin Dose 4 MG; Start 04/23/19 at 20:00 Acetaminophen (Tylenol Tab) 650 mg Q6H PRN PO .PAIN 1-3 OR TEMP Last administered on 05/10/19 09:38; Admin Dose 650 MG; Start 04/23/19 at 20:00 Morphine Sulfate (morphine) 2 mg Q4H PRN IV .SEVERE PAIN 7-10 Last administered on 05/12/19 10:41; Admin Dose 2 MG; Start 04/23/19 at 20:00 Docusate Sodium (Colace) 100 mg Q12H PRN PO .CONSTIPATION Last administered on 05/13/19 05:22; Admin Dose 100 MG; Start 04/23/19 at 20:00 Bisacodyl (Dulcolax) 5 mg DAILY PRN PO .CONSTIPATION; Start 04/23/19 at 20:00 Lactobacillus Acidophilus (Florajen3 Capsule) 1 each BID PO Last administered on 05/14/19 08:36; Admin Dose 1 EACH; Start 04/23/19 at 21:00 Miscellaneous Information 1 ea NOTE XX ; Start 04/23/19 at 20:30 Glucose (Glutose) 15 gm Q15M PRN PO DECREASED GLUCOSE; Start 04/23/19 at 20:30 Glucose (Glutose) 22.5 gm Q15M PRN PO DECREASED GLUCOSE; Start 04/23/19 at 20:30 Dextrose (D50w Syringe) 25 ml Q15M PRN IV DECREASED GLUCOSE; Start 04/23/19 at 20:30 Dextrose (D50w Syringe) 50 ml Q15M PRN IV DECREASED GLUCOSE; Start 04/23/19 at 20:30 Glucagon (Glucagen) 1 mg Q15M PRN IM DECREASED GLUCOSE; Start 04/23/19 at 20:30 Glucose (Glutose) 15 gm Q15M PRN BUCCAL DECREASED GLUCOSE; Start 04/23/19 at 20:30 Miscellaneous Information (Pending [facility] Order For Wound Care) This patient munguia... PRN PRN XX WOUND CARE; Start 04/24/19 at 05:00 Amlodipine Besylate (Norvasc) 10 mg DAILY PO Last administered on 05/14/19 08:37; Admin Dose 10 MG; Start 04/29/19 at 09:00 Pantoprazole (Protonix Tab) 40 mg DAILY@06 PO Last administered on 05/14/19 05:27; Admin Dose 40 MG; Start 04/29/19 at 06:00 Lisinopril (Zestril) 10 mg DAILY PO Last administered on 05/14/19 08:37; Admin Dose 10 MG; Start 04/29/19 at 09:30 Hyoscyamine (Levsin (Sl)) 0.125 mg Q4H PRN SL ab cramping; Start 04/29/19 at 12:30 Loperamide HCl (Imodium Cap) 2 mg BID PRN PO DIARRHEA; Start 04/29/19 at 12:30 Polyethylene Glycol (Miralax) 17 gm DAILY PRN PO constipation; Start 05/01/19 at 17:00 Metoclopramide HCl (Reglan) 5 mg Q6 IV Last administered on 05/14/19 05:27; Ad min Dose 5 MG; Start 05/01/19 at 18:00 Diagnostic Test (Pha) (Accu-Chek) 1 ea 02 XX ; Start 05/05/19 at 02:00 Scopolamine (Transderm-Scop) 1 patch Q72H TRANSDERM Last administered on 05/11/19 14:07; Admin Dose 1 PATCH; Start 05/05/19 at 14:30 Prochlorperazine (Compazine Inj) 5 mg Q6H PRN IV NAUSEA AND/OR VOMITING; Start 05/06/19 at 14:30 Nystatin (Nystatin Powder) 1 applic TID TOP Last administered on 05/14/19 08:43; Admin Dose 1 APPLIC; Start 05/06/19 at 21:00 Diagnostic Test (Pha) (Accu-Chek) 1 ea Q4 XX Last administered on 05/14/19 08:40; Admin Dose 1 EA; Start 05/09/19 at 17:00 Hydralazine HCl (Apresoline) 10 mg Q4H PRN IV sbp>160; Start 05/09/19 at 15:30 Zolpidem Tartrate (Ambien) 5 mg HS MAY REPEAT X 1 PRN PO INSOMNIA Last administered on 7/6/19at 20:56; Admin Dose 5 MG; Start 05/11/19 at 02:00 Heparin Sodium (Porcine) (Heparin (5000 Units/1ml)) 5,000 unit BID SC Last administered on 05/14/19at 08:40; Admin Dose 5,000 UNIT; Start 05/12/19 at 21:00 Insulin Aspart (Novolog Insulin Pen) (Adult SC Insulin - Mild Algorithm)... Q4 SC ; Start 05/13/19 at 21:00 BALTA HENDERSON May 14, 2019 12:50
[2019-05-14] MEDS: SCOPOLAMINE 1.5 MG PATCH TRANSDERM SCH (13:36)
[2019-05-14 14:23] VITALS: BP 149/65; PULSE 89; RESP 20
[2019-05-14] MEDS: ACETAMINOPHEN 325 MG TAB PO PRN (17:39)
--- NOTE | 2019-05-14 19:59 | PN ---
Date/Time of Note Date/Time of Note DATE: 05/14/19 TIME: 19:57 Assessment/Plan VTE Prophylaxis Risk score (from [facility] [place])>0 risk: 7 SCD applied (from [facility] [place]): No SCD contraindicated: other Pharmacological prophylaxis: heparin Lines/Catheters IV [facility]ter Type (from [facility] Mid Line Urinary Cath still in place: No Assessment/Plan Hospital Course Assessment and plan 1. Nausea and vomiting acute on chronic. - Antiemetics as needed. - GI following. - Continue on PPI - s/p peg - tube feeding per dietitian recommendations 2. UTI. - Resolved at present. - ID consult following. 3. Diarrhea. - Resolved. - On probiotics. 4. Skin tear. - Continue wound care. 5. Diabetes. - Continue insulin regimen. Adjust as needed 6. Hypertension. - Continue antihypertensives. Adjust as needed. Disposition and plan. s/p PEG placement 05/12/19. continue to advance tube feedings as tolerated. d/c planning. f/u immigration case worker for home with [facility]. will f/u Discussed POC with Dr. Hewitt Result Diagram: 05/14/19 0425 05/14/19 0425 Results 24hrs Laboratory Tests Test 05/13/19 20:53 05/14/19 01:08 05/14/19 04:25 05/14/19 04:55 Bedside Glucose 117 103 106 White Blood Count 15.5 H Red Blood Count 3.20 L Hemoglobin 8.1 L Hematocrit 26.1 L Mean Corpuscular Volume 81.6 L Mean Corpuscular 25.3 L Hemoglobin Mean Corpuscular 31.0 L Hemoglobin Concent Red Cell Distribution 18.6 H Width Platelet Count 471 H Mean Platelet Volume 10.2 Immature Granulocytes % 5.600 H Neutrophils % Segmented Neutrophils 64 % (Manual) Band Neutrophils % 3 (Manual) Lymphocytes % Lymphocytes % (Manual) 18 Reactive Lymphocytes 1 H % (Manual) Monocytes % Monocytes % (Manual) 6 Eosinophils % Eosinophils % (Manual) 4 Basophils % Metamyelocytes % 1 H (manual) Myelocytes % (Manual) 3 H Nucleated Red Blood 0.1 H Cells % Immature Granulocytes # 0.870 H Neutrophils # Neutrophils # (Manual) 10.0 H Band Neutrophils # 0.4 Lymphocytes (Manual) 2.7 Lymphocytes # Reactive Lymphocytes # 0.1 H Monocytes # Monocytes # (Manual) 0.9 Eosinophils # Basophils # Metamyelocytes # 0.1 H Myelocytes # 0.4 H Nucleated Red Blood Cells # Platelet Estimate NORMAL Giant Platelets 1 H Polychromasia 3+ Poikilocytosis 1+ Anisocytosis 1+ Microcytosis 1+ Target Cells 1+ Sodium Level 135 Potassium Level 4.6 Chloride Level 106 Carbon Dioxide Level 26 Anion Gap 3 L Blood Urea Nitrogen 21 H Creatinine 1.07 H Est Glomerular Filtrat 51 L Rate mL/min Glucose Level 103 Calcium Level 9.3 Test 05/14/19 08:35 05/14/19 13:29 05/14/19 17:42 Bedside Glucose 113 100 110 Subjective 24 Hr Interval Summary Free Text/Dictation still reports pain on right knee. less nausea Exam/Review of Systems Exam Vitals Vital Signs Date Temp Pulse Resp B/P (MAP) Pulse Ox O2 O2 Flow FiO2 Time Delivery Rate 05/14/19 98.5 89 20 149/65 98 Room Air 14:23 (93) 05/12/19 8.0 09:36 Intake and Output 05/13/19 05/13/19 05/14/19 1515:00 23:00 07:00 IntakeIntake Total 120 ml 420 ml 1370 ml BalanceBalance 120 ml 420 ml 1370 ml Exam Constitutional: alert, obese Neck: supple, non-tender Respiratory: clear to auscultation, normal air movement Cardiovascular: other (regular rate ) Gastrointestinal: soft, nontender, peg Neurological: nl mental status, nl speech Extremities: right knee swelling Results Results 24hrs Laboratory Tests Test 05/13/19 20:53 05/14/19 01:08 05/14/19 04:25 05/14/19 04:55 Bedside Glucose 117 103 106 White Blood Count 15.5 H Red Blood Count 3.20 L Hemoglobin 8.1 L Hematocrit 26.1 L Mean Corpuscular Volume 81.6 L Mean Corpuscular 25.3 L Hemoglobin Mean Corpuscular 31.0 L Hemoglobin Concent Red Cell Distribution 18.6 H Width Platelet Count 471 H Mean Platelet Volume 10.2 Immature Granulocytes % 5.600 H Neutrophils % Segmented Neutrophils 64 % (Manual) Band Neutrophils % 3 (Manual) Lymphocytes % Lymphocytes % (Manual) 18 Reactive Lymphocytes 1 H % (Manual) Monocytes % Monocytes % (Manual) 6 Eosinophils % Eosinophils % (Manual) 4 Basophils % Metamyelocytes % 1 H (manual) Myelocytes % (Manual) 3 H Nucleated Red Blood 0.1 H Cells % Immature Granulocytes # 0.870 H Neutrophils # Neutrophils # (Manual) 10.0 H Band Neutrophils # 0.4 Lymphocytes (Manual) 2.7 Lymphocytes # Reactive Lymphocytes # 0.1 H Monocytes # Monocytes # (Manual) 0.9 Eosinophils # Basophils # Metamyelocytes # 0.1 H Myelocytes # 0.4 H Nucleated Red Blood Cells # Platelet Estimate NORMAL Giant Platelets 1 H Polychromasia 3+ Poikilocytosis 1+ Anisocytosis 1+ Microcytosis 1+ Target Cells 1+ Sodium Level 135 Potassium Level 4.6 Chloride Level 106 Carbon Dioxide Level 26 Anion Gap 3 L Blood Urea Nitrogen 21 H Creatinine 1.07 H Est Glomerular Filtrat 51 L Rate mL/min Glucose Level 103 Calcium Level 9.3 Test 05/14/19 08:35 05/14/19 13:29 05/14/19 17:42 Bedside Glucose 113 100 110 Medications Medication Current Medications Atorvastatin Calcium (Lipitor) 40 mg QHS PO Last administered on 05/13/19 20:54; Admin Dose 40 MG; Start 04/23/19 at 21:00 Clonidine (Catapres) 0.1 mg TID PRN PO ELEVATED BLOOD PRESSURE Last administered on 04/28/19 22:48; Admin Dose 0.1 MG; Start 04/23/19 at 20:00 Escitalopram Oxalate (Lexapro) 10 mg DAILY PO Last administered on 05/14/19 08:36; Admin Dose 10 MG; Start 04/24/19 at 09:00 IV Flush (NS 3 ml) 3 ml PER PROTOCOL IV ; Start 04/23/19 at 20:00 Ondansetron HCl (Zofran Inj) 4 mg Q6H PRN IV NAUSEA/VOMITING Last administered on 05/08/19 10:00; Admin Dose 4 MG; Start 04/23/19 at 20:00 Acetaminophen (Tylenol Tab) 650 mg Q6H PRN PO .PAIN 1-3 OR TEMP Last administered on 05/14/19 17:39; Admin Dose 650 MG; Start 04/23/19 at 20:00 Morphine Sulfate (morphine) 2 mg Q4H PRN IV .SEVERE PAIN 7-10 Last administered on 05/12/19 10:41; Admin Dose 2 MG; Start 04/23/19 at 20:00 Docusate Sodium (Colace) 100 mg Q12H PRN PO .CONSTIPATION Last administered on 05/13/19at 05:22; Admin Dose 100 MG; Start 04/23/19 at 20:00 Bisacodyl (Dulcolax) 5 mg DAILY PRN PO .CONSTIPATION; Start 04/23/19 at 20:00 Lactobacillus Acidophilus (Florajen3 Capsule) 1 each BID PO Last administered on 05/14/19at 08:36; Admin Dose 1 EACH; Start 04/23/19 at 21:00 Miscellaneous Information 1 ea NOTE XX ; Start 04/23/19 at 20:30 Glucose (Glutose) 15 gm Q15M PRN PO DECREASED GLUCOSE; Start 04/23/19 at 20:30 Glucose (Glutose) 22.5 gm Q15M PRN PO DECREASED GLUCOSE; Start 04/23/19 at 20:30 Dextrose (D50w Syringe) 25 ml Q15M PRN IV DECREASED GLUCOSE; Start 04/23/19 at 20:30 Dextrose (D50w Syringe) 50 ml Q15M PRN IV DECREASED GLUCOSE; Start 04/23/19 at 20:30 Glucagon (Glucagen) 1 mg Q15M PRN IM DECREASED GLUCOSE; Start 04/23/19 at 20:30 Glucose (Glutose) 15 gm Q15M PRN BUCCAL DECREASED GLUCOSE; Start 04/23/19 at 20:30 Miscellaneous Information (Pending [facility] Order For Wound Care) This patient munguia... PRN PRN XX WOUND CARE; Start 04/24/19 at 05:00 Amlodipine Besylate (Norvasc) 10 mg DAILY PO Last administered on 05/14/19at 08:37; Admin Dose 10 MG; Start 04/29/19 at 09:00 Pantoprazole (Protonix Tab) 40 mg DAILY@06 PO Last administered on 05/14/19at 05:27; Admin Dose 40 MG; Start 04/29/19 at 06:00 Lisinopril (Zestril) 10 mg DAILY PO Last administered on 05/14/19at 08:37; Admin Dose 10 MG; Start 04/29/19 at 09:30 Hyoscyamine (Levsin (Sl)) 0.125 mg Q4H PRN SL ab cramping; Start 04/29/19 at 12:30 Loperamide HCl (Imodium Cap) 2 mg BID PRN PO DIARRHEA; Start 04/29/19 at 12:30 Polyethylene Glycol (Miralax) 17 gm DAILY PRN PO constipation; Start 05/01/19 at 17:00 Metoclopramide HCl (Reglan) 5 mg Q6 IV Last administered on 05/14/19 17:39; Admin Dose 5 MG; Start 05/01/19 at 18:00 Diagnostic Test (Pha) (Accu-Chek) 1 ea 02 XX ; Start 05/05/19 at 02:00 Scopolamine (Transderm-Scop) 1 patch Q72H TRANSDERM Last administered on 05/14/19 13:36; Admin Dose 1 PATCH; Start 05/05/19 at 14:30 Prochlorperazine (Compazine Inj) 5 mg Q6H PRN IV NAUSEA AND/OR VOMITING; Start 05/06/19 at 14:30 Nystatin (Nystatin Powder) 1 applic TID TOP Last administered on 05/14/19 08:4 3; Admin Dose 1 APPLIC; Start 05/06/19 at 21:00 Diagnostic Test (Pha) (Accu-Chek) 1 ea Q4 XX Last administered on 05/14/19at 17:43; Admin Dose 1 EA; Start 05/09/19 at 17:00 Hydralazine HCl (Apresoline) 10 mg Q4H PRN IV sbp>160; Start 05/09/19 at 15:30 Zolpidem Tartrate (Ambien) 5 mg HS MAY REPEAT X 1 PRN PO INSOMNIA Last administered on 05/13/19at 20:56; Admin Dose 5 MG; Start 05/11/19 at 02:00 Heparin Sodium (Porcine) (Heparin (5000 Units/1ml)) 5,000 unit BID SC Last administered on 05/14/19 08:40; Admin Dose 5,000 UNIT; Start 05/12/19 at 21:00 Insulin Aspart (Novolog Insulin Pen) (Adult SC Insulin - Mild Algorithm)... Q4 SC ; Start 05/13/19 at 21:00 JOSEFINA LUGO NP May 14, 2019 19:59
[2019-05-14 20:00] VITALS: BP 125/60; RESP 18
[2019-05-14] MEDS: ATORVASTATIN 40 MG TAB PO SCH (20:18)
[2019-05-14] MEDS: ZOLPIDEM 5 MG TAB PO PRN (23:09)
[2019-05-15] MEDS: METOCLOPRAMIDE 10 MG INJ IV SCH ×4 (00:36→17:35)
[2019-05-15] MEDS: Insulin NOVOLOG SS MILD Algorithm (NPO/TPN/ENTERAL FEEDS) SC SCH ×6 (01:00→21:00)
[2019-05-15] MEDS: ACCU-CHEK XX SCH ×7 (01:09→21:00)
[2019-05-15 02:00] VITALS: BP 125/58; PULSE 79; RESP 18
[2019-05-15] MEDS: PANTOPRAZOLE (EC) 40 MG TAB PO SCH (06:01)
[2019-05-15] MEDS: ACETAMINOPHEN 325 MG TAB PO PRN (06:01)
[2019-05-15 08:00] VITALS: BP 139/63; PULSE 76; RESP 18
[2019-05-15] MEDS ORDERED: NA POLYST SULFON 15 GM/60 ML BTL PO ONE (09:00)
[2019-05-15] MEDS: ESCITALOPRAM 10 MG TAB PO SCH (09:54)
[2019-05-15] MEDS: L ACIDOPHIL/B LACTIS/B LONGUM CAPSULE PO SCH ×2 (09:54→21:21)
[2019-05-15] MEDS: AMLODIPINE 10 MG TAB PO SCH (09:55)
[2019-05-15] MEDS: HEPARIN 5,000 UNIT/1 ML VIAL SC SCH ×2 (09:57→21:22)
[2019-05-15] MEDS: NYSTATIN 30 GM POWDER BTL TOP SCH ×3 (10:00→21:44)
[2019-05-15 14:00] VITALS: BP 135/62; PULSE 84; RESP 18
--- NOTE | 2019-05-15 17:22 | PN ---
Date/Time of Note Date/Time of Note DATE: 05/15/19 TIME: 17:21 Assessment/Plan VTE Prophylaxis Risk score (from [facility])>0 risk: 8 SCD applied (from [facility]): Yes Pharmacological prophylaxis: heparin Lines/Catheters [facility] (from [facility] Mid Line Urinary Cath still in place: No Assessment/Plan Hospital Course SUBJECTIVE: Tolerating G-tube feeds. OBJECTIVE: Physical Exam General: Obese, 64 year-old female lying in bed in no apparent distress. HEENT: Normocephalic, atraumatic. Eyes: Anicteric sclerae, conjunctivae clear. ENT: Nasal septum midline, oral mucosa moist. Neck supple, no JVD noticed. Respiratory: Bilaterally clear breath sounds. No use of accessory muscles of respiration. No adventitious breath sounds. Cardiovascular: S1, S2 heard. Regular rate and rhythm. Abdomen: Soft, nontender, and nondistended. G-tube in place. Abdominal binder in place. Bowel sounds positive in all 4 quadrants. Genitourinary: Deferred. Extremities: No cyanosis, no clubbing, no edema. Peripheral pulses palpable. Neurologic: Cranial nerves II through XII grossly intact. The patient is awake, alert, and oriented. Skin: Normal skin turgor. No skin rashes. Labs & Vitals per chart ASSESSMENT & PLAN 64-year-old female with comorbidities including hypertension, diabetes mellitus, dyslipidemia, and obesity who came to the emergency room with poor p.o tolerance who was admitted to inpatient setting for further treatment and evaluation. 1. Intolerance to oral feeds. Status post evaluation by gastroenterology. Status post PEG tube placement on 05/12/2019. Continue PEG tube feeds. 2. Status post tract infection. Status post antimicrobials as per ID. 3. Diarrhea. Resolved. Continue probiotics. 3. Diabetes mellitus type 2. Continue sliding scale insulin. 4. Hypertension. Continue antihypertensives. 5. Depression. Continue SSRI. 6. Moderate gastritis and moderate distal esophagitis. Continue PPI. 7. Fluids, electrolytes, and nutrition. Continue G-tube feedings. Oral intake as tolerated. 8. DVT prophylaxis. Subcutaneous heparin. 9. Plan. Continue G-tube feedings. Await home health to be arranged before discharge the patient home. The patient was seen in collaboration with Dr. More. Result Diagram: 05/15/19 0538 05/15/19 0538 Results 24hrs Laboratory Tests Test 05/14/19 17:42 05/14/19 20:23 05/15/19 00:35 05/15/19 05:17 Bedside Glucose 110 104 104 121 Test 05/15/19 05:38 05/15/19 09:58 05/15/19 13:44 White Blood Count 17.6 H Red Blood Count 3.34 L Hemoglobin 8.5 L Hematocrit 27.5 L Mean Corpuscular Volume 82.3 Mean Corpuscular 25.4 L Hemoglobin Mean Corpuscular 30.9 L Hemoglobin Concent Red Cell Distribution 18.6 H Width Platelet Count 526 H Mean Platelet Volume 9.6 Immature Granulocytes % 6.000 H Neutrophils % Segmented Neutrophils 54 % (Manual) Band Neutrophils % 8 H (Manual) Lymphocytes % Lymphocytes % (Manual) 14 L Monocytes % Monocytes % (Manual) 8 Eosinophils % Eosinophils % (Manual) 13 H Basophils % Myelocytes % (Manual) 1 H Promyelocytes % (Manual) 2 H Nucleated Red Blood 0.0 Cells % Immature Granulocytes # 1.060 H Neutrophils # Neutrophils # (Manual) 9.8 H Band Neutrophils # 1.4 H Lymphocytes (Manual) 2.4 Lymphocytes # Monocytes # Monocytes # (Manual) 1.4 H Eosinophils # Basophils # Myelocytes # 0.1 H Promyelocytes # 0.3 H Nucleated Red Blood Cells # Platelet Estimate INCREASED Giant Platelets 2 H Polychromasia 1+ Poikilocytosis 1+ Anisocytosis 1+ Target Cells 1+ Sodium Level 136 Potassium Level 5.3 H Chloride Level 105 Carbon Dioxide Level 26 Anion Gap 5 Blood Urea Nitrogen 26 H Creatinine 1.07 H Est Glomerular Filtrat 51 L Rate mL/min Glucose Level 110 Calcium Level 10.0 Bedside Glucose 168 153 Exam/Review of Systems Exam Vitals Vital Signs Date Temp Pulse Resp B/P (MAP) Pulse Ox O2 O2 Flow FiO2 Time Delivery Rate 05/15/19 99.7 84 18 135/62 97 14:00 (86) 05/15/19 Room Air 08:00 05/12/19 8.0 09:36 Intake and Output 05/14/19 05/14/19 05/15/19 1515:00 23:00 07:00 IntakeIntake Total 220 ml 1320 ml 100 ml OutputOutput Total 300 ml BalanceBalance 220 ml 1020 ml 100 ml Results Results 24hrs Laboratory Tests Test 05/14/19 17:42 05/14/19 20:23 05/15/19 00:35 05/15/19 05:17 Bedside Glucose 110 104 104 121 Test 05/15/19 05:38 05/15/19 09:58 05/15/19 13:44 White Blood Count 17.6 H Red Blood Count 3.34 L Hemoglobin 8.5 L Hematocrit 27.5 L Mean Corpuscular Volume 82.3 Mean Corpuscular 25.4 L Hemoglobin Mean Corpuscular 30.9 L Hemoglobin Concent Red Cell Distribution 18.6 H Width Platelet Count 526 H Mean Platelet Volume 9.6 Immature Granulocytes % 6.000 H Neutrophils % Segmented Neutrophils 54 % (Manual) Band Neutrophils % 8 H (Manual) Lymphocytes % Lymphocytes % (Manual) 14 L Monocytes % Monocytes % (Manual) 8 Eosinophils % Eosinophils % (Manual) 13 H Basophils % Myelocytes % (Manual) 1 H Promyelocytes % (Manual) 2 H Nucleated Red Blood 0.0 Cells % Immature Granulocytes # 1.060 H Neutrophils # Neutrophils # (Manual) 9.8 H Band Neutrophils # 1.4 H Lymphocytes (Manual) 2.4 Lymphocytes # Monocytes # Monocytes # (Manual) 1.4 H Eosinophils # Basophils # Myelocytes # 0.1 H Promyelocytes # 0.3 H Nucleated Red Blood Cells # Platelet Estimate INCREASED Giant Platelets 2 H Polychromasia 1+ Poikilocytosis 1+ Anisocytosis 1+ Target Cells 1+ Sodium Level 136 Potassium Level 5.3 H Chloride Level 105 Carbon Dioxide Level 26 Anion Gap 5 Blood Urea Nitrogen 26 H Creatinine 1.07 H Est Glomerular Filtrat 51 L Rate mL/min Glucose Level 110 Calcium Level 10.0 Bedside Glucose 168 153 Medications Medication Current Medications Atorvastatin Calcium (Lipitor) 40 mg QHS PO Last administered on 05/14/19at 20:18; Admin Dose 40 MG; Start 04/23/19 at 21:00 Clonidine (Catapres) 0.1 mg TID PRN PO ELEVATED BLOOD PRESSURE Last administered on 04/28/19at 22:48; Admin Dose 0.1 MG; Start 04/23/19 at 20:00 Escitalopram Oxalate (Lexapro) 10 mg DAILY PO Last administered on 05/15/19at 09:54; Admin Dose 10 MG; Start 04/24/19 at 09:00 IV Flush (NS 3 ml) 3 ml PER PROTOCOL IV ; Start 04/23/19 at 20:00 Ondansetron HCl (Zofran Inj) 4 mg Q6H PRN IV NAUSEA/VOMITING Last administered on 05/08/19at 10:00; Admin Dose 4 MG; Start 04/23/19 at 20:00 Acetaminophen (Tylenol Tab) 650 mg Q6H PRN PO .PAIN 1-3 OR TEMP Last administered on 05/15/19 06:01; Admin Dose 650 MG; Start 04/23/19 at 20:00 Morphine Sulfate (morphine) 2 mg Q4H PRN IV .SEVERE PAIN 7-10 Last administered on 05/12/19at 10:41; Admin Dose 2 MG; Start 04/23/19 at 20:00 Docusate Sodium (Colace) 100 mg Q12H PRN PO .CONSTIPATION Last administered on 05/13/19 05:22; Admin Dose 100 MG; Start 04/23/19 at 20:00 Bisacodyl (Dulcolax) 5 mg DAILY PRN PO .CONSTIPATION; Start 04/23/19 at 20:00 Lactobacillus Acidophilus (Florajen3 Capsule) 1 each BID PO Last administered on 05/15/19at 09:54; Admin Dose 1 EACH; Start 04/23/19 at 21:00 Miscellaneous Information 1 ea NOTE XX ; Start 04/23/19 at 20:30 Glucose (Glutose) 15 gm Q15M PRN PO DECREASED GLUCOSE; Start 04/23/19 at 20:30 Glucose (Glutose) 22.5 gm Q15M PRN PO DECREASED GLUCOSE; Start 04/23/19 at 20:30 Dextrose (D50w Syringe) 25 ml Q15M PRN IV DECREASED GLUCOSE; Start 04/23/19 at 20:30 Dextrose (D50w Syringe) 50 ml Q15M PRN IV DECREASED GLUCOSE; Start 04/23/19 at 20:30 Glucagon (Glucagen) 1 mg Q15M PRN IM DECREASED GLUCOSE; Start 04/23/19 at 20:30 Glucose (Glutose) 15 gm Q15M PRN BUCCAL DECREASED GLUCOSE; Start 04/23/19 at 20:30 Miscellaneous Information (Pending [facility] Order For Wound Care) This patient munguia... PRN PRN XX WOUND CARE; Start 04/24/19 at 05:00 Amlodipine Besylate (Norvasc) 10 mg DAILY PO Last administered on 05/15/19 09:55; Admin Dose 10 MG; Start 04/29/19 at 09:00 Pantoprazole (Protonix Tab) 40 mg DAILY@06 PO Last administered on 05/15/19 06:01; Admin Dose 40 MG; Start 04/29/19 at 06:00 Lisinopril (Zestril) 10 mg DAILY PO Last administered on 05/14/19 08:37; Admin Dose 10 MG; Start 04/29/19 at 09:30; Status Hold Hyoscyamine (Levsin (Sl)) 0.125 mg Q4H PRN SL ab cramping; Start 04/29/19 at 12:30 Loperamide HCl (Imodium Cap) 2 mg BID PRN PO DIARRHEA; Start 04/29/19 at 12:30 Polyethylene Glycol (Miralax) 17 gm DAILY PRN PO constipation; Start 05/01/19 at 17:00 Metoclopramide HCl (Reglan) 5 mg Q6 IV Last administered on 05/15/19 13:44; Admin Dose 5 MG; Start 05/01/19 at 18:00 Diagnostic Test (Pha) (Accu-Chek) 1 ea 02 XX ; Start 05/05/19 at 02:00 Scopolamine (Transderm-Scop) 1 patch Q72H TRANSDERM Last administered on 05/14/19 13:36; Admin Dose 1 PATCH; Start 05/05/19 at 14:30 Prochlorperazine (Compazine Inj) 5 mg Q6H PRN IV NAUSEA AND/OR VOMITING; Start 05/06/19 at 14:30 Nystatin (Nystatin Powder) 1 applic TID TOP Last administered on 05/15/19 13:45; Admin Dose 1 APPLIC; Start 05/06/19 at 21:00 Diagnostic Test (Pha) (Accu-Chek) 1 ea Q4 XX Last administered on 05/15/19 13:45; Admin Dose 1 EA; Start 05/09/19 at 17:00 Hydralazine HCl (Apresoline) 10 mg Q4H PRN IV sbp>160; Start 05/09/19 at 15:30 Zolpidem Tartrate (Ambien) 5 mg HS MAY REPEAT X 1 PRN PO INSOMNIA Last administered on 05/14/19at 23:09; Admin Dose 5 MG; Start 05/11/19 at 02:00 Heparin Sodium (Porcine) (Heparin (5000 Units/1ml)) 5,000 unit BID SC Last administered on 05/15/19at 09:57; Admin Dose 5,000 UNIT; Start 05/12/19 at 21:00 Insulin Aspart (Novolog Insulin Pen) (Adult SC Insulin - Mild Algorithm)... Q4 SC ; Start 05/13/19 at 21:00 PERICO TREJO NP May 15, 2019 17:22
[2019-05-15 20:00] VITALS: BP 144/62; PULSE 82; RESP 18
[2019-05-15] MEDS: ATORVASTATIN 40 MG TAB PO SCH (21:21)
[2019-05-15] MEDS: ZOLPIDEM 5 MG TAB PO PRN (21:21)
[2019-05-16] MEDS: METOCLOPRAMIDE 10 MG INJ IV SCH ×5 (00:57→23:27)
[2019-05-16] MEDS: Insulin NOVOLOG SS MILD Algorithm (NPO/TPN/ENTERAL FEEDS) SC SCH ×6 (01:00→20:33)
[2019-05-16] MEDS: ACCU-CHEK XX SCH ×7 (01:00→20:34)
[2019-05-16] MEDS: ZOLPIDEM 5 MG TAB PO PRN ×2 (01:03→20:38)
[2019-05-16 02:00] VITALS: BP 121/59; RESP 18
[2019-05-16] MEDS: PANTOPRAZOLE (EC) 40 MG TAB PO SCH (05:38)
[2019-05-16 08:00] VITALS: BP 132/60; PULSE 77; RESP 16
[2019-05-16] MEDS: HEPARIN 5,000 UNIT/1 ML VIAL SC SCH ×2 (08:46→20:36)
[2019-05-16] MEDS: ESCITALOPRAM 10 MG TAB PO SCH (08:46)
[2019-05-16] MEDS: L ACIDOPHIL/B LACTIS/B LONGUM CAPSULE PO SCH ×2 (08:46→20:34)
[2019-05-16] MEDS: AMLODIPINE 10 MG TAB PO SCH (08:47)
[2019-05-16] MEDS: NYSTATIN 30 GM POWDER BTL TOP SCH ×3 (08:48→20:34)
[2019-05-16] MEDS ORDERED: MAGNESIUM SULFATE 2 GM/50 ML 50 ML IVPB ONE (12:00)
[2019-05-16 14:00] VITALS: BP 132/63; PULSE 77; RESP 17
--- NOTE | 2019-05-16 15:09 | PN ---
Date/Time of Note Date/Time of Note DATE: 05/16/19 TIME: 15:08 Assessment/Plan VTE Prophylaxis Risk score (from Ns)>0 risk: 7 SCD applied (from Ns): Yes Pharmacological prophylaxis: heparin Lines/Catheters IV C[facility]ter Type (from [facility]): Mid Line Urinary Cath still in place: No Assessment/Plan Hospital Course SUBJECTIVE: Tolerating G-tube feeds. OBJECTIVE: Physical Exam General: Obese, 64 year-old female lying in bed in no apparent distress. HEENT: Normocephalic, atraumatic. Eyes: Anicteric sclerae, conjunctivae clear. ENT: Nasal septum midline, oral mucosa moist. Neck supple, no JVD noticed. Respiratory: Bilaterally clear breath sounds. No use of accessory muscles of respiration. No adventitious breath sounds. Cardiovascular: S1, S2 heard. Regular rate and rhythm. Abdomen: Soft, nontender, and nondistended. G-tube in place. Abdominal binder in place. Bowel sounds positive in all 4 quadrants. Genitourinary: Deferred. Extremities: No cyanosis, no clubbing, no edema. Peripheral pulses palpable. Neurologic: Cranial nerves II through XII grossly intact. The patient is awake, alert, and oriented. Skin: Normal skin turgor. No skin rashes. Labs & Vitals per chart ASSESSMENT & PLAN 64-year-old female with comorbidities including hypertension, diabetes mellitus, dyslipidemia, and obesity who came to the emergency room with poor p.o tolerance who was admitted to inpatient setting for further treatment and evaluation. 1. Intolerance to oral feeds. Status post evaluation by gastroenterology. Status post PEG tube placement on 05/12/2019. Continue PEG tube feeds. 2. Status post tract infection. Status post antimicrobials as per ID. 3. Diarrhea. Resolved. Continue probiotics. 3. Diabetes mellitus type 2. Continue sliding scale insulin. 4. Hypertension. Continue antihypertensives. 5. Depression. Continue SSRI. 6. Moderate gastritis and moderate distal esophagitis. Continue PPI. 7. Fluids, electrolytes, and nutrition. Continue G-tube feedings. Oral intake as tolerated. 8. DVT prophylaxis. Subcutaneous heparin. 9. Plan. Continue G-tube feedings. Replete magnesium. Leukocytosis is probably reactive. Remains afebrile. Await home health to be arranged before discharging the patient home. The patient was seen in collaboration with Dr. More. Result Diagram: 05/16/19 0530 05/16/1930 Results 24hrs Laboratory Tests Test 05/15/19 17:33 05/15/19 21:17 05/16/19 01:00 05/16/19 05:09 Bedside Glucose 122 100 94 107 Test 05/16/19 05:30 05/16/19 08:45 05/16/19 12:32 White Blood Count 18.1 H Red Blood Count 3.31 L Hemoglobin 8.6 L Hematocrit 27.3 L Mean Corpuscular Volume 82.5 Mean Corpuscular 26.0 L Hemoglobin Mean Corpuscular 31.5 L Hemoglobin Concent Red Cell Distribution 18.7 H Width Platelet Count 539 H Mean Platelet Volume 9.9 Immature Granulocytes % 6.300 H Neutrophils % Segmented Neutrophils 52 % (Manual) Band Neutrophils % 18 H (Manual) Lymphocytes % Lymphocytes % (Manual) 12 L Monocytes % Monocytes % (Manual) 3 Eosinophils % Eosinophils % (Manual) 13 H Basophils % Myelocytes % (Manual) 2 H Nucleated Red Blood 0.0 Cells % Immature Granulocytes # 1.140 H Neutrophils # Neutrophils # (Manual) 10.0 H Band Neutrophils # 3.2 H Lymphocytes (Manual) 2.1 Lymphocytes # Monocytes # Monocytes # (Manual) 0.5 Eosinophils # Basophils # Myelocytes # 0.3 H Nucleated Red Blood Cells # Platelet Estimate INCREASED Polychromasia 1+ Hypochromasia 1+ Anisocytosis 1+ Sodium Level 134 L Potassium Level 5.0 Chloride Level 104 Carbon Dioxide Level 25 Anion Gap 5 Blood Urea Nitrogen 28 H Creatinine 1.14 H Est Glomerular Filtrat 48 L Rate mL/min Glucose Level 106 Calcium Level 10.2 Phosphorus Level 2.2 L Magnesium Level 1.5 L Prealbumin 7.5 L Bedside Glucose 106 117 Exam/Review of Systems Exam Vitals Vital Signs Date Temp Pulse Resp B/P (MAP) Pulse Ox O2 O2 Flow FiO2 Time Delivery Rate 05/16/19 98.2 77 16 132/60 08:00 (84) 05/16/19 98 02:00 05/15/19 Room Air 08:00 05/12/19 8.0 09:36 Intake and Output 05/15/19 05/15/19 05/16/19 1515:00 23:00 07:00 IntakeIntake Total 600 ml 1420 ml 1220 ml OutputOutput Total 600 ml BalanceBalance 0 ml 1420 ml 1220 ml Results Results 24hrs Laboratory Tests Test 05/15/19 17:33 05/15/19 21:17 05/16/19 01:00 05/16/19 05:09 Bedside Glucose 122 100 94 107 Test 05/16/19 05:30 05/16/19 08:45 05/16/19 12:32 White Blood Count 18.1 H Red Blood Count 3.31 L Hemoglobin 8.6 L Hematocrit 27.3 L Mean Corpuscular Volume 82.5 Mean Corpuscular 26.0 L Hemoglobin Mean Corpuscular 31.5 L Hemoglobin Concent Red Cell Distribution 18.7 H Width Platelet Count 539 H Mean Platelet Volume 9.9 Immature Granulocytes % 6.300 H Neutrophils % Segmented Neutrophils 52 % (Manual) Band Neutrophils % 18 H (Manual) Lymphocytes % Lymphocytes % (Manual) 12 L Monocytes % Monocytes % (Manual) 3 Eosinophils % Eosinophils % (Manual) 13 H Basophils % Myelocytes % (Manual) 2 H Nucleated Red Blood 0.0 Cells % Immature Granulocytes # 1.140 H Neutrophils # Neutrophils # (Manual) 10.0 H Band Neutrophils # 3.2 H Lymphocytes (Manual) 2.1 Lymphocytes # Monocytes # Monocytes # (Manual) 0.5 Eosinophils # Basophils # Myelocytes # 0.3 H Nucleated Red Blood Cells # Platelet Estimate INCREASED Polychromasia 1+ Hypochromasia 1+ Anisocytosis 1+ Sodium Level 134 L Potassium Level 5.0 Chloride Level 104 Carbon Dioxide Level 25 Anion Gap 5 Blood Urea Nitrogen 28 H Creatinine 1.14 H Est Glomerular Filtrat 48 L Rate mL/min Glucose Level 106 Calcium Level 10.2 Phosphorus Level 2.2 L Magnesium Level 1.5 L Prealbumin 7.5 L Bedside Glucose 106 117 Medications Medication Current Medications Atorvastatin Calcium (Lipitor) 40 mg QHS PO Last administered on 05/15/19at 21:21; Admin Dose 40 MG; Start 04/23/19 at 21:00 Clonidine (Catapres) 0.1 mg TID PRN PO ELEVATED BLOOD PRESSURE Last administered on 04/28/19at 22:48; Admin Dose 0.1 MG; Start 04/23/19 at 20:00 Escitalopram Oxalate (Lexapro) 10 mg DAILY PO Last administered on 05/16/19at 08:46; Admin Dose 10 MG; Start 04/24/19 at 09:00 IV Flush (NS 3 ml) 3 ml PER PROTOCOL IV ; Start 04/23/19 at 20:00 Ondansetron HCl (Zofran Inj) 4 mg Q6H PRN IV NAUSEA/VOMITING Last administered on 05/08/19at 10:00; Admin Dose 4 MG; Start 04/23/19 at 20:00 Acetaminophen (Tylenol Tab) 650 mg Q6H PRN PO .PAIN 1-3 OR TEMP Last administered on 05/15/19 06:01; Admin Dose 650 MG; Start 04/23/19 at 20:00 Morphine Sulfate (morphine) 2 mg Q4H PRN IV .SEVERE PAIN 7-10 Last administered on 05/12/19 10:41; Admin Dose 2 MG; Start 04/23/19 at 20:00 Docusate Sodium (Colace) 100 mg Q12H PRN PO .CONSTIPATION Last administered on 05/13/19 05:22; Admin Dose 100 MG; Start 04/23/19 at 20:00 Bisacodyl (Dulcolax) 5 mg DAILY PRN PO .CONSTIPATION; Start 04/23/19 at 20:00 Lactobacillus Acidophilus (Florajen3 Capsule) 1 each BID PO Last administered on 05/16/19 08:46; Admin Dose 1 EACH; Start 04/23/19 at 21:00 Miscellaneous Information 1 ea NOTE XX ; Start 04/23/19 at 20:30 Glucose (Glutose) 15 gm Q15M PRN PO DECREASED GLUCOSE; Start 04/23/19 at 20:30 Glucose (Glutose) 22.5 gm Q15M PRN PO DECREASED GLUCOSE; Start 04/23/19 at 20:30 Dextrose (D50w Syringe) 25 ml Q15M PRN IV DECREASED GLUCOSE; Start 04/23/19 at 20:30 Dextrose (D50w Syringe) 50 ml Q15M PRN IV DECREASED GLUCOSE; Start 04/23/19 at 20:30 Glucagon (Glucagen) 1 mg Q15M PRN IM DECREASED GLUCOSE; Start 04/23/19 at 20:30 Glucose (Glutose) 15 gm Q15M PRN BUCCAL DECREASED GLUCOSE; Start 04/23/19 at 20:30 Miscellaneous Information (Pending [facility] Order For Wound Care) This patient munguia... PRN PRN XX WOUND CARE; Start 04/24/19 at 05:00 Amlodipine Besylate (Norvasc) 10 mg DAILY PO Last administered on 05/16/19 08:47; Admin Dose 10 MG; Start 04/29/19 at 09:00 Pantoprazole (Protonix Tab) 40 mg DAILY@06 PO Last administered on 05/16/19 05:38; Admin Dose 40 MG; Start 04/29/19 at 06:00 Lisinopril (Zestril) 10 mg DAILY PO Last administered on 05/14/19 08:37; Admin Dose 10 MG; Start 04/29/19 at 09:30; Status Hold Hyoscyamine (Levsin (Sl)) 0.125 mg Q4H PRN SL ab cramping; Start 04/29/19 at 12:30 Loperamide HCl (Imodium Cap) 2 mg BID PRN PO DIARRHEA; Start 04/29/19 at 12:30 Polyethylene Glycol (Miralax) 17 gm DAILY PRN PO constipation; Start 05/01/19 at 17:00 Metoclopramide HCl (Reglan) 5 mg Q6 IV Last administered on 05/16/19 12:33; Admin Dose 5 MG; Start 05/01/19 at 18:00 Diagnostic Test (Pha) (Accu-Chek) 1 ea 02 XX ; Start 05/05/19 at 02:00 Scopolamine (Transderm-Scop) 1 patch Q72H TRANSDERM Last administered on 05/14/19 13:36; Admin Dose 1 PATCH; Start 05/05/19 at 14:30 Prochlorperazine (Compazine Inj) 5 mg Q6H PRN IV NAUSEA AND/OR VOMITING; Start 05/06/19 at 14:30 Nystatin (Nystatin Powder) 1 applic TID TOP Last administered on 05/16/19 12:34; Admin Dose 1 APPLIC; Start 05/06/19 at 21:00 Diagnostic Test (Pha) (Accu-Chek) 1 ea Q4 XX Last administered on 05/15/19 17:34; Admin Dose 1 EA; Start 05/09/19 at 17:00 Hydralazine HCl (Apresoline) 10 mg Q4H PRN IV sbp>160; Start 05/09/19 at 15:30 Zolpidem Tartrate (Ambien) 5 mg HS MAY REPEAT X 1 PRN PO INSOMNIA Last administered on 05/16/19at 01:03; Admin Dose 5 MG; Start 05/11/19 at 02:00 Heparin Sodium (Porcine) (Heparin (5000 Units/1ml)) 5,000 unit BID SC Last administered on 05/16/19at 08:46; Admin Dose 5,000 UNIT; Start 05/12/19 at 21:00 Insulin Aspart (Novolog Insulin Pen) (Adult SC Insulin - Mild Algorithm)... Q4 SC ; Start 05/13/19 at 21:00 PERICO TREJO NP May 16, 2019 15:09
--- NOTE | 2019-05-16 16:50 | CONS ---
Assessment/Plan Assessment/Plan Hospital Course (Demo Recall) Patient is alert looks comfortable tolerates tube feeding, no fevers overnight Antimicrobials: none Physical examination: Obese well-developed elderly woman who is awake in no distress. Head atraumatic normocephalic sclera nonicteric vehicle mucosa dry neck is obese chest rise symmetrical breath sounds diminished bases heart S1-S2 abdomen soft bowel sounds present extremities without cyanosis Assessment: 1. Persistent leukocytosis, no evidence for acute infectious process, WBC scan negative 1. Status post UTI 2. Morbid obesity 3. Diabetes 4. Hypertension 5. Diarrhea, C. difficile negative 6. Persistent nausea Plan: Clinically unchanged, leukocytosis persists, will repeat cultures Consultation Date/Type/Reason Admit Date/Time Apr 23, 2019 at 18:26 Initial Consult Date Type of Consult id Date/Time of Note DATE: 05/16/19 TIME: 16:49 Exam/Review of Systems Exam Vitals Vital Signs Date Temp Pulse Resp B/P (MAP) Pulse Ox O2 O2 Flow FiO2 Time Delivery Rate 05/16/19 97.9 77 17 132/63 96 Room Air 14:00 (86) 05/12/19 8.0 09:36 Intake and Output 05/15/19 05/15/19 05/16/19 1515:00 23:00 07:00 IntakeIntake Total 600 ml 1420 ml 1220 ml OutputOutput Total 600 ml BalanceBalance 0 ml 1420 ml 1220 ml Results Result Diagram: 05/16/19 0530 05/16/19 0530 Results 24hrs Laboratory Tests Test 05/15/19 17:33 05/15/19 21:17 05/16/19 01:00 05/16/19 05:09 Bedside Glucose 122 100 94 107 Test 05/16/19 05:30 05/16/19 08:45 05/16/19 12:32 White Blood Count 18.1 H Red Blood Count 3.31 L Hemoglobin 8.6 L Hematocrit 27.3 L Mean Corpuscular Volume 82.5 Mean Corpuscular 26.0 L Hemoglobin Mean Corpuscular 31.5 L Hemoglobin Concent Red Cell Distribution 18.7 H Width Platelet Count 539 H Mean Platelet Volume 9.9 Immature Granulocytes % 6.300 H Neutrophils % Segmented Neutrophils 52 % (Manual) Band Neutrophils % 18 H (Manual) Lymphocytes % Lymphocytes % (Manual) 12 L Monocytes % Monocytes % (Manual) 3 Eosinophils % Eosinophils % (Manual) 13 H Basophils % Myelocytes % (Manual) 2 H Nucleated Red Blood 0.0 Cells % Immature Granulocytes # 1.140 H Neutrophils # Neutrophils # (Manual) 10.0 H Band Neutrophils # 3.2 H Lymphocytes (Manual) 2.1 Lymphocytes # Monocytes # Monocytes # (Manual) 0.5 Eosinophils # Basophils # Myelocytes # 0.3 H Nucleated Red Blood Cells # Platelet Estimate INCREASED Polychromasia 1+ Hypochromasia 1+ Anisocytosis 1+ Sodium Level 134 L Potassium Level 5.0 Chloride Level 104 Carbon Dioxide Level 25 Anion Gap 5 Blood Urea Nitrogen 28 H Creatinine 1.14 H Est Glomerular Filtrat 48 L Rate mL/min Glucose Level 106 Calcium Level 10.2 Phosphorus Level 2.2 L Magnesium Level 1.5 L Prealbumin 7.5 L Bedside Glucose 106 117 Medications Medication Current Medications Atorvastatin Calcium (Lipitor) 40 mg QHS PO Last administered on 05/15/19 21:21; Admin Dose 40 MG; Start 04/23/19 at 21:00 Clonidine (Catapres) 0.1 mg TID PRN PO ELEVATED BLOOD PRESSURE Last administered on 04/28/19 22:48; Admin Dose 0.1 MG; Start 04/23/19 at 20:00 Escitalopram Oxalate (Lexapro) 10 mg DAILY PO Last administered on 05/16/19 08:46; Admin Dose 10 MG; Start 04/24/19 at 09:00 IV Flush (NS 3 ml) 3 ml PER PROTOCOL IV ; Start 04/23/19 at 20:00 Ondansetron HCl (Zofran Inj) 4 mg Q6H PRN IV NAUSEA/VOMITING Last administered on 05/08/19 10:00; Admin Dose 4 MG; Start 04/23/19 at 20:00 Acetaminophen (Tylenol Tab) 650 mg Q6H PRN PO .PAIN 1-3 OR TEMP Last administered on 05/15/19 06:01; Admin Dose 650 MG; Start 04/23/19 at 20:00 Morphine Sulfate (morphine) 2 mg Q4H PRN IV .SEVERE PAIN 7-10 Last administered on 05/12/19 10:41; Admin Dose 2 MG; Start 04/23/19 at 20:00 Docusate Sodium (Colace) 100 mg Q12H PRN PO .CONSTIPATION Last administered on 05/13/19at 05:22; Admin Dose 100 MG; Start 04/23/19 at 20:00 Bisacodyl (Dulcolax) 5 mg DAILY PRN PO .CONSTIPATION; Start 04/23/19 at 20:00 Lactobacillus Acidophilus (Florajen3 Capsule) 1 each BID PO Last administered on 05/16/19at 08:46; Admin Dose 1 EACH; Start 04/23/19 at 21:00 Miscellaneous Information 1 ea NOTE XX ; Start 04/23/19 at 20:30 Glucose (Glutose) 15 gm Q15M PRN PO DECREASED GLUCOSE; Start 04/23/19 at 20:30 Glucose (Glutose) 22.5 gm Q15M PRN PO DECREASED GLUCOSE; Start 04/23/19 at 20:30 Dextrose (D50w Syringe) 25 ml Q15M PRN IV DECREASED GLUCOSE; Start 04/23/19 at 20:30 Dextrose (D50w Syringe) 50 ml Q15M PRN IV DECREASED GLUCOSE; Start 04/23/19 at 20:30 Glucagon (Glucagen) 1 mg Q15M PRN IM DECREASED GLUCOSE; Start 04/23/19 at 20:30 Glucose (Glutose) 15 gm Q15M PRN BUCCAL DECREASED GLUCOSE; Start 04/23/19 at 20:30 Miscellaneous Information (Pending [facility] Order For Wound Care) This patient munguia... PRN PRN XX WOUND CARE; Start 04/24/19 at 05:00 Amlodipine Besylate (Norvasc) 10 mg DAILY PO Last administered on 05/16/19at 08:47; Admin Dose 10 MG; Start 04/29/19 at 09:00 Pantoprazole (Protonix Tab) 40 mg DAILY@06 PO Last administered on 05/16/19at 05:38; Admin Dose 40 MG; Start 04/29/19 at 06:00 Lisinopril (Zestril) 10 mg DAILY PO Last administered on 05/14/19at 08:37; Admin Dose 10 MG; Start 04/29/19 at 09:30; Status Hold Hyoscyamine (Levsin (Sl)) 0.125 mg Q4H PRN SL ab cramping; Start 04/29/19 at 12:30 Loperamide HCl (Imodium Cap) 2 mg BID PRN PO DIARRHEA; Start 04/29/19 at 12:30 Polyethylene Glycol (Miralax) 17 gm DAILY PRN PO constipation; Start 05/01/19 at 17:00 Metoclopramide HCl (Reglan) 5 mg Q6 IV Last administered on 05/16/19 12:33; Admin Dose 5 MG; Start 05/01/19 at 18:00 Diagnostic Test (Pha) (Accu-Chek) 1 ea 02 XX ; Start 05/05/19 at 02:00 Scopolamine (Transderm-Scop) 1 patch Q72H TRANSDERM Last administered on 05/14/19 13:36; Admin Dose 1 PATCH; Start 05/05/19 at 14:30 Prochlorperazine (Compazine Inj) 5 mg Q6H PRN IV NAUSEA AND/OR VOMITING; Start 05/06/19 at 14:30 Nystatin (Nystatin Powder) 1 applic TID TOP Last administered on 05/16/19 12:34; Admin Dose 1 APPLIC; Start 05/06/19 at 21:00 Diagnostic Test (Pha) (Accu-Chek) 1 ea Q4 XX Last administered on 05/15/19 17:34; Admin Dose 1 EA; Start 05/09/19 at 17:00 Hydralazine HCl (Apresoline) 10 mg Q4H PRN IV sbp>160; Start 05/09/19 at 15:30 Zolpidem Tartrate (Ambien) 5 mg HS MAY REPEAT X 1 PRN PO INSOMNIA Last administered on 05/16/19at 01:03; Admin Dose 5 MG; Start 05/11/19 at 02:00 Heparin Sodium (Porcine) (Heparin (5000 Units/1ml)) 5,000 unit BID SC Last administered on 05/16/19at 08:46; Admin Dose 5,000 UNIT; Start 05/12/19 at 21:00 Insulin Aspart (Novolog Insulin Pen) (Adult SC Insulin - Mild Algorithm)... Q4 SC ; Start 05/13/19 at 21:00 ANA MARIA ZULETA NP May 16, 2019 16:50
[2019-05-16 20:00] VITALS: BP 129/60; PULSE 84; RESP 18
[2019-05-16] MEDS: ATORVASTATIN 40 MG TAB PO SCH (20:34)
[2019-05-17] MEDS: ACCU-CHEK XX SCH ×6 (00:23→16:57)
[2019-05-17] MEDS: Insulin NOVOLOG SS MILD Algorithm (NPO/TPN/ENTERAL FEEDS) SC SCH ×5 (01:00→16:57)
[2019-05-17 02:47] VITALS: BP 140/64; PULSE 90; RESP 16
[2019-05-17] MEDS: PANTOPRAZOLE (EC) 40 MG TAB PO SCH (05:05)
[2019-05-17] MEDS: METOCLOPRAMIDE 10 MG INJ IV SCH ×3 (05:05→16:57)
[2019-05-17 08:29] VITALS: BP 145/67; PULSE 90; RESP 20
[2019-05-17] MEDS: ESCITALOPRAM 10 MG TAB PO SCH (09:57)
[2019-05-17] MEDS: AMLODIPINE 10 MG TAB PO SCH (09:57)
[2019-05-17] MEDS: L ACIDOPHIL/B LACTIS/B LONGUM CAPSULE PO SCH (09:57)
[2019-05-17] MEDS: HEPARIN 5,000 UNIT/1 ML VIAL SC SCH (09:58)
[2019-05-17] MEDS: NYSTATIN 30 GM POWDER BTL TOP SCH ×2 (09:58→12:52)
[2019-05-17] MEDS: SCOPOLAMINE 1.5 MG PATCH TRANSDERM SCH (14:10)
[2019-05-17 14:30] VITALS: BP 136/80; PULSE 90; RESP 20
--- NOTE | 2019-05-17 15:23 | CONS ---
Assessment/Plan Assessment/Plan Hospital Course (Demo Recall) Patient is alert looks comfortable, no fevers overnight Antimicrobials: none Physical examination: Obese well-developed elderly woman who is awake in no distress. Head atraumatic normocephalic sclera nonicteric vehicle mucosa dry neck is obese chest rise symmetrical breath sounds diminished bases heart S1-S2 abdomen soft bowel sounds present extremities without cyanosis Assessment: 1. Persistent leukocytosis, no evidence for acute infectious process, WBC scan negative 1. Status post UTI 2. Morbid obesity 3. Diabetes 4. Hypertension 5. Diarrhea, C. difficile negative 6. Persistent nausea, s/p PEG Plan: Clinically unchanged, stable, leukocytosis persists, check CXR, f/u repeat cx's, consider hematology eval Consultation Date/Type/Reason Admit Date/Time Apr 23, 2019 at 18:26 Initial Consult Date Type of Consult id Date/Time of Note DATE: 05/17/19 TIME: 15:20 Exam/Review of Systems Exam Vitals Vital Signs Date Temp Pulse Resp B/P (MAP) Pulse Ox O2 O2 Flow FiO2 Time Delivery Rate 05/17/19 98.5 90 20 136/80 98 Room Air 14:30 (98) Intake and Output 05/16/19 05/16/19 05/17/19 1515:00 23:00 07:00 IntakeIntake Total 50 ml 1380 ml OutputOutput Total 101 ml BalanceBalance 50 ml 1279 ml Results Result Diagram: 05/17/19 0601 05/17/19 0601 Results 24hrs Laboratory Tests Test 05/16/19 17:06 05/16/19 20:32 05/17/19 01:16 05/17/19 05:05 Bedside Glucose 119 114 99 100 Test 05/17/19 06:01 05/17/19 07:52 05/17/19 12:52 White Blood Count 19.0 H Red Blood Count 3.44 L Hemoglobin 8.8 L Hematocrit 28.8 L Mean Corpuscular 83.7 Volume Mean Corpuscular 25.6 L Hemoglobin Mean Corpuscular 30.6 L Hemoglobin Concent Red Cell 19.0 H Distribution Width Platelet Count 588 H Mean Platelet Volume 9.6 Immature 7.100 H Granulocytes % Neutrophils % Segmented 45 Neutrophils % (Manual) Band Neutrophils % 12 H (Manual) Lymphocytes % Lymphocytes % 16 (Manual) Reactive Lymphocytes 1 H % (Manual) Monocytes % Monocytes % (Manual) 9 Eosinophils % Eosinophils % 8 H (Manual) Basophils % Basophils % (Manual) 1 Metamyelocytes % 4 H (manual) Myelocytes % 4 H (Manual) Nucleated Red Blood 0.0 Cells % Immature 1.340 H Granulocytes # Neutrophils # Neutrophils # 9.0 H (Manual) Band Neutrophils # 2.2 H Lymphocytes (Manual) 3.0 H Lymphocytes # Reactive Lymphocytes 0.1 H # Monocytes # Monocytes # (Manual) 1.7 H Eosinophils # Basophils # Basophils # (Manual) 0.1 H Metamyelocytes # 0.7 H Myelocytes # 0.7 H Nucleated Red Blood Cells # Platelet Estimate INCREASED Anisocytosis 1+ Sodium Level 134 L Potassium Level 5.1 Chloride Level 102 Carbon Dioxide Level 26 Anion Gap 6 Blood Urea Nitrogen 33 H Creatinine 1.22 H Est Glomerular 44 L Filtrat Rate mL/min Glucose Level 109 Calcium Level 10.7 H Phosphorus Level 2.6 Magnesium Level 2.0 Bedside Glucose 118 112 Medications Medication Current Medications Atorvastatin Calcium (Lipitor) 40 mg QHS PO Last administered on 05/16/19 20:34; Admin Dose 40 MG; Start 04/23/19 at 21:00 Clonidine (Catapres) 0.1 mg TID PRN PO ELEVATED BLOOD PRESSURE Last administered on 04/28/19 22:48; Admin Dose 0.1 MG; Start 04/23/19 at 20:00 Escitalopram Oxalate (Lexapro) 10 mg DAILY PO Last administered on 05/17/19 09:57; Admin Dose 10 MG; Start 04/24/19 at 09:00 IV Flush (NS 3 ml) 3 ml PER PROTOCOL IV ; Start 04/23/19 at 20:00 Ondansetron HCl (Zofran Inj) 4 mg Q6H PRN IV NAUSEA/VOMITING Last administered on 05/08/19 10:00; Admin Dose 4 MG; Start 04/23/19 at 20:00 Acetaminophen (Tylenol Tab) 650 mg Q6H PRN PO .PAIN 1-3 OR TEMP Last a dministered on 05/15/19 06:01; Admin Dose 650 MG; Start 04/23/19 at 20:00 Morphine Sulfate (morphine) 2 mg Q4H PRN IV .SEVERE PAIN 7-10 Last administered on 05/12/19 10:41; Admin Dose 2 MG; Start 04/23/19 at 20:00 Docusate Sodium (Colace) 100 mg Q12H PRN PO .CONSTIPATION Last administered on 05/13/19 05:22; Admin Dose 100 MG; Start 04/23/19 at 20:00 Bisacodyl (Dulcolax) 5 mg DAILY PRN PO .CONSTIPATION; Start 04/23/19 at 20:00 Lactobacillus Acidophilus (Florajen3 Capsule) 1 each BID PO Last administered on 05/17/19at 09:57; Admin Dose 1 EACH; Start 04/23/19 at 21:00 Miscellaneous Information 1 ea NOTE XX ; Start 04/23/19 at 20:30 Glucose (Glutose) 15 gm Q15M PRN PO DECREASED GLUCOSE; Start 04/23/19 at 20:30 Glucose (Glutose) 22.5 gm Q15M PRN PO DECREASED GLUCOSE; Start 04/23/19 at 20:3 0 Dextrose (D50w Syringe) 25 ml Q15M PRN IV DECREASED GLUCOSE; Start 04/23/19 at 20:30 Dextrose (D50w Syringe) 50 ml Q15M PRN IV DECREASED GLUCOSE; Start 04/23/19 at 20:30 Glucagon (Glucagen) 1 mg Q15M PRN IM DECREASED GLUCOSE; Start 04/23/19 at 20:30 Glucose (Glutose) 15 gm Q15M PRN BUCCAL DECREASED GLUCOSE; Start 04/23/19 at 20:30 Miscellaneous Information (Pending [facility] Order For Wound Care) This patient munguia... PRN PRN XX WOUND CARE; Start 04/24/19 at 05:00 Amlodipine Besylate (Norvasc) 10 mg DAILY PO Last administered on 05/17/19at 09:57; Admin Dose 10 MG; Start 04/29/19 at 09:00 Pantoprazole (Protonix Tab) 40 mg DAILY@06 PO Last administered on 05/17/19 05:05; Admin Dose 40 MG; Start 04/29/19 at 06:00 Lisinopril (Zestril) 10 mg DAILY PO Last administered on 05/14/19at 08:37; Admin Dose 10 MG; Start 04/29/19 at 09:30; Status Hold Hyoscyamine (Levsin (Sl)) 0.125 mg Q4H PRN SL ab cramping; Start 04/29/19 at 12:30 Loperamide HCl (Imodium Cap) 2 mg BID PRN PO DIARRHEA; Start 04/29/19 at 12:30 Polyethylene Glycol (Miralax) 17 gm DAILY PRN PO constipation; Start 05/01/19 at 17:00 Metoclopramide HCl (Reglan) 5 mg Q6 IV Last administered on 05/17/19at 11:56; Admin Dose 5 MG; Start 05/01/19 at 18:00 Diagnostic Test (Pha) (Accu-Chek) 1 ea 02 XX ; Start 05/05/19 at 02:00 Scopolamine (Transderm-Scop) 1 patch Q72H TRANSDERM Last administered on 05/17/19at 14:10; Admin Dose 1 PATCH; Start 05/05/19 at 14:30 Prochlorperazine (Compazine Inj) 5 mg Q6H PRN IV NAUSEA AND/OR VOMITING; Start 05/06/19 at 14:30 Nystatin (Nystatin Powder) 1 applic TID TOP Last administered on 05/17/19at 12:52; Admin Dose 1 APPLIC; Start 05/06/19 at 21:00 Diagnostic Test (Pha) (Accu-Chek) 1 ea Q4 XX Last administered on 05/17/19at 05:06; Admin Dose 1 EA; Start 05/09/19 at 17:00 Hydralazine HCl (Apresoline) 10 mg Q4H PRN IV sbp>160; Start 05/09/19 at 15:30 Zolpidem Tartrate (Ambien) 5 mg HS MAY REPEAT X 1 PRN PO INSOMNIA Last administered on 05/16/19at 20:38; Admin Dose 5 MG; Start 05/11/19 at 02:00 Heparin Sodium (Porcine) (Heparin (5000 Units/1ml)) 5,000 unit BID SC Last administered on 05/17/19at 09:58; Admin Dose 5,000 UNIT; Start 05/12/19 at 21:00 Insulin Aspart (Novolog Insulin Pen) (Adult SC Insulin - Mild Algorithm)... Q4 SC ; Start 05/13/19 at 21:00 ANA MARIA ZULETA NP May 17, 2019 15:23
--- NOTE | 2019-05-17 15:26 | PDOCDIS ---
Discharge Instructions CONDITION [id number] Patient Condition: [id number] Stable HOME CARE INSTRUCTIONS: [id number] Special Diet: [id number] Tube feedings. Oral feeds as tolerated. FOLLOW UP/APPOINTMENTS Follow-up Plan Follow-up with your PCP in 2 weeks. OTHER ORDERS: Other Orders: 1. Resume home medications. 2. Tube feedings as per orders. 3. Take a low-cholesterol diet orally as tolerated. 4. Resume activities as tolerated. 5. Follow-up with your primary care physician in 2 weeks. PERICO TREJO NP May 17, 2019 15:26
--- NOTE | 2019-05-17 16:02 | DS ---
Date/Time of Note Date/Time of Note DATE: 05/17/19 TIME: 16:00 Discharge Summary Admission/Discharge Info Admit Date/Time Apr 23, 2019 at 18:26 Discharge Date/Time Discharge Diagnosis 1. Intolerance to oral feeds. S/P PEG placement on 05/12/2019. 2. Status post urinary tract infection. 3. Diabetes mellitus type 2. Hemoglobin A1C 5.6. 4. Hypertension. 5. Depression. 6. Moderate gastritis and moderate distal esophagitis. 7. Leukocytosis. Patient Condition: Stable Consults 1. Rosa Vasquez MD, Gastroenterology. 2. Himanshu Godfrey MD, Infectious Diseases. Procedures Placement of PEG tube on 05/12/2019. Gastric Emptying Study IMPRESSION: Normal gastric emptying rate. Hx of Present Illness This is a 64-year-old female with comorbidities including hypertension, diabetes mellitus, dyslipidemia, and obesity who came to the emergency room with poor p.o tolerance who was admitted to inpatient setting for further treatment and evaluation. Hospital Course Gastroenterology consult was obtained. The patient did not have any evidence of any dysphagia. Etiology of the patient's oral intolerance was evaluated by gastroenterology. The patient underwent a gastric emptying scan that was negative for any evidence of any gastroparesis. The patient was medically managed with prokinetics and antiemetics with no improvement in the symptomatology. Finally, a clinical decision was made to have a PEG tube placed for provision of nutrition. The patient had a PEG tube placed on 05/12/2019. The patient was started on tube feedings. The patient was able to tolerate a G-tube feedings without any significant gastrointestinal symptoms. The patient was being treated for a urinary tract infection from her previous admission. The patient was continued on antimicrobials as per ID during this hospitalization. The patient's urine culture from this admission was negative. The patient continued to have leukocytosis. The etiology of this remains unclear. The patient underwent a nuclear medicine WBC scan that was negative. The patient remained afebrile. The patient may need outpatient hematology evaluation if the patient continues to have persistent leukocytosis. The patient's chronic problems include diabetes mellitus type 2. She was continued on sliding scale insulin. The patient's hemoglobin A1c is only 5.6. Upon discharge, the patient will be discharged off any antidiabetic medications. She has underlying hypertension and the patient was maintained on antihypertensives for the same. She has underlying depression. She was mainta ined on SSRIs. The patient's esophagogastroduodenoscopy also revealed gastritis and moderate distal esophagitis. Therefore, the patient was maintained on proton pump inhibitors. The patient is obese with a BMI of more than 32 kg/m. The patient was evaluated by physical therapy and had multiple physical therapy sessions. The patient is stable for outpatient management. The patient will be discharged home with PEG tube in place. Home health was arranged for continuous infusion of Glucerna/Diabetic source for at least 3 months. Meanwhile, the patient will follow up with her primary care physician. The patient was also encouraged to take oral food/fluids as tolerated. Discharge Instructions 1. Resume home medications. 2. Tube feedings as per orders. 3. Take a low-cholesterol diet orally as tolerated. 4. Resume activities as tolerated. 5. Follow-up with your primary care physician in 2 weeks. The patient's family verbalized understanding of the discharge instructions. At this time I would like to thank all the consultants for seeing the patient, doing the necessary procedures, and providing clinical recommendations. The patient was seen in collaboration with Dr. More. Home Meds Reported Medications Atorvastatin* (Atorvastatin*) 40 Mg Tablet, 40 MG PO QHS, #30 TAB 04/23/19 Escitalopram Oxalate* (Escitalopram Oxalate*) 10 Mg Tablet, 10 MG PO NEEDED, #30 TAB 04/23/19 Pantoprazole* (Pantoprazole*) 40 Mg Tablet.dr, 40 MG PO AC BREAKFAST, TAB 04/23/19 Discontinued Reported Medications Glimepiride* (Glimepiride*) 1 Mg Tablet, 1 MG PO WITH BREAKFAST PRN for NEEDED, TAB 04/23/19 Clonidine Hcl* (Clonidine Hcl*) 0.1 Mg Tab, 0.1 MG PO TID, TAB 04/23/19 Follow-up Plan Follow-up with your PCP in 2 weeks. Primary Care Provider Wilner Owens Time spent on discharge: > 30 minutes Pending Labs Laboratory Tests Test 05/16/19 17:06 05/16/19 20:32 05/17/19 01:16 05/17/19 05:05 Bedside 119 114 99 100 Glucose mg/dL (70-220) mg/dL (70-220) mg/dL (70-220) mg/dL (70-220) Test 05/17/19 06:01 05/17/19 07:52 05/17/19 12:52 White Blood 19.0 Count 10^3/ul (4.8-10 .8) Red Blood 3.44 Count 10^6/ul (4.20-5 .40) Hemoglobin 8.8 g/dl (12.0-16.0 ) Hematocrit 28.8 % (37.0-47.0) Mean 83.7 Corpuscular fl (82.0-101.0) Volume Mean 25.6 Corpuscular pg (29.0-33.0) Hemoglobin Mean 30.6 Corpuscular g/dl (32.0-37.0 Hemoglobin Conc ) ent Red Cell 19.0 Distribution % (11.5-14.5) Width Platelet Count 588 10^3/UL (140-41 5) Mean Platelet 9.6 Volume fl (7.4-10.4) Immature 7.100 Granulocytes % % (0.001-0.429) Neutrophils % % (39.0-77.0) Segmented 45 % (39-77) Neutrophils % (Manual) Band 12 % (0-4) Neutrophils % (Manual) Lymphocytes % % (15.0-51.0) Lymphocytes % 16 % (15-51) (Manual) Reactive 1 % (0-0) Lymphocytes % (Manual) Monocytes % % (0.0-11.0) Monocytes % 9 % (0-11) (Manual) Eosinophils % % (0.0-7.0) Eosinophils % 8 % (0-7) (Manual) Basophils % % (0.0-2.0) Basophils % 1 % (0-2) (Manual) Metamyelocytes 4 % (0-0) % (manual) Myelocytes % 4 % (0-0) (Manual) Nucleated Red 0.0 Blood Cells % /100WBC (0.0-0. 0) Immature 1.340 Granulocytes # 10^3/ul (0.0-0. 031) Neutrophils # 10^3/ul (1.6-7. 5) Neutrophils # 9.0 (Manual) 10^3/ul (1.6-7. 5) Band 2.2 Neutrophils # 10^3/ul (0.0-0. 6) Lymphocytes 3.0 (Manual) 10^3/ul (0.8-2. 9) Lymphocytes # 10^3/ul (0.8-2. 9) Reactive 0.1 Lymphocytes # 10^3/ul (0.0-0. 0) Monocytes # 10^3/ul (0.3-0. 9) Monocytes # 1.7 (Manual) 10^3/ul (0.3-0. 9) Eosinophils # 10^3/ul (0.0-0. 5) Basophils # 10^3/ul (0.0-0. 1) Basophils # 0.1 (Manual) 10^3/ul (0.0-0. 0) Metamyelocytes 0.7 # 10^3/ul (0.0-0. 0) Myelocytes # 0.7 10^3/ul (0.0-0. 0) Nucleated Red 10^3/ul (0.0-0. Blood Cells # 0) Platelet INCREASED Estimate Anisocytosis 1+ (0-0) Sodium Level 134 mmol/L (135-144 ) Potassium 5.1 Level mmol/L (3.5-5.1 ) Chloride Level 102 mmol/L (97-110) Carbon Dioxide 26 Level mmol/L (21-31) Anion Gap 6 (5-13) Blood Urea 33 mg/dl (7-20) Nitrogen Creatinine 1.22 mg/dl (0.44-1.0 0) Est Glomerular 44 mL/min (>60) Filtrat Rate mL/min Glucose Level 109 mg/dl (70-220) Calcium Level 10.7 mg/dl (8.4-10.2 ) Phosphorus 2.6 Level mg/dl (2.5-4.9) Magnesium 2.0 Level mg/dl (1.7-2.5) Bedside 118 112 Glucose mg/dL (70-220) mg/dL (70-220) Microbiology Date/Time Source Procedure Growth Status 05/16/19 20:30 Catheter Urine Urine Culture - Preliminary Resulted PERICO TREJO NP May 17, 2019 16:02
[2019-05-17] MEDS: ACETAMINOPHEN 325 MG TAB PO PRN (16:21)
[2019-05-17 20:00] VITALS: BP 134/57; PULSE 83; RESP 18
== END 2019-05-17 20:43 | disposition home health service (06) | DRG 392 ==
LOC: E/R 14:16 → PP2 18:26 → CANRESERV 20:46
PROVIDERS: ADMIT Internal Medicine; ATTEND Internal Medicine
PROC: 0DB68ZX Excision of Stomach, Via Natural or Artificial Opening Endoscopic, Diagnostic (ICD-10-PCS; principal; 2019-04-28 18:30)
PROC: 0D5K8ZZ Destruction of Ascending Colon, Via Natural or Artificial Opening Endoscopic (ICD-10-PCS; 2019-04-28 18:30)
PROC: 0DH63UZ Insertion of Feeding Device into Stomach, Percutaneous Approach (ICD-10-PCS; 2019-05-12)
DX: K90.49 Malabsorption due to intolerance, not elsewhere classified (principal); N39.0 Urinary tract infection, site not specified; E11.8 Type 2 diabetes mellitus with unspecified complications; E78.5 Hyperlipidemia, unspecified; I10 Essential (primary) hypertension; F32.9 Major depressive disorder, single episode, unspecified; K29.70 Gastritis, unspecified, without bleeding; D72.829 Elevated white blood cell count, unspecified; Z79.4 Long term (current) use of insulin; E66.01 Morbid (severe) obesity due to excess calories; Z68.32 Body mass index [BMI] 32.0-32.9, adult; D64.9 Anemia, unspecified; K20.9 Esophagitis, unspecified; K63.5 Polyp of colon; R19.7 Diarrhea, unspecified
CPT/HCPCS: 36415; 36600; 71045; 73562; 78264; 78806; 80048; 80053; 80069; 80076; 80200; 81001; 81003; 82803; 82962; 83036; 83690; 83735; 84100; 84134; 84145; 84478; 85025; 85610; 87045; 87075; 87081; 87086; 87177; 87205; 88305; 88312; 96361; 96374; 96375; 97110; 97116; 97161; 97530; A4310; A9541; A9570; J0360; J0690; J0692; J1644; J1815; J1885; J2185; J2270; J2405; J2765; J3260; J3475; J3480; J7030; J7042; J7050

== ENCOUNTER 2019-05-22 17:16 | Inpatient (IN) | payer MEDICARE, OTHER ==
[~2019-05-22] VITALS: Ht 149.9 cm; Wt 81.9 kg
[~2019-05-22 17:16] MED LIST changes: -ATOR20TA38 PO; -CLON-379 PO; +ESCI10TA48 PO; -FURO20TA3 PO; -NITR100C7 PO; -ONDA4TAB95 PO; -PANT40TA3 PO; +PANT40TA4 PO
[2019-05-22] MEDS ORDERED: ONDANSETRON 4 MG INJ IV STA (17:48)
[2019-05-22] MEDS ORDERED: LORAZEPAM 2 MG INJ IV ONE (18:00)
[2019-05-22] MEDS ORDERED: AMLO5TAB4 PO (18:46)
[2019-05-22] MEDS ORDERED: SOD CHLORIDE 0.9% 1,000 ML IV STA (19:13)
[2019-05-22] MEDS ORDERED: ONDANSETRON 4 MG INJ IV PRN (19:30)
[2019-05-22] MEDS ORDERED: ACETAMINOPHEN 325 MG TAB PO PRN (19:30)
--- NOTE | 2019-05-22 20:31 | ERD ---
ER Documentation Chief Complaint Chief Complaint VOMITING, DIARRHEA, ONSET TODAY HPI Patient is a 64-year-old female with hypertension, diabetes, and high cholesterol who presents with nausea and diarrhea. The symptoms started yeste rday. Patient has no fevers and no pain. The patient tried Zofran and Reglan but has failed treatment. The patient was discharged from our hospital 1 week ago and was readmitted at [place]. The family left [place] today because they did not like the treatment they were receiving there. ROS All systems reviewed and are negative except as per history of present illness. Medications Home Meds Reported Medications Amlodipine Besylate* (Norvasc*) 5 Mg Tablet, 5 MG PO DAILY, TAB 05/22/19 Atorvastatin* (Atorvastatin*) 40 Mg Tablet, 40 MG PO QHS, #30 TAB 04/23/19 Escitalopram Oxalate* (Escitalopram Oxalate*) 10 Mg Tablet, 10 MG PO NEEDED, #30 TAB 04/23/19 Pantoprazole* (Pantoprazole*) 40 Mg Tablet.dr, 40 MG PO AC BREAKFAST, TAB 04/23/19 Discontinued Reported Medications Glimepiride* (Glimepiride*) 1 Mg Tablet, 1 MG PO WITH BREAKFAST PRN for NEEDED, TAB 04/23/19 Clonidine Hcl* (Clonidine Hcl*) 0.1 Mg Tab, 0.1 MG PO TID, TAB 04/23/19 Allergies Allergies: Coded Allergies: nitrofurantoin (Unverified Allergy, Unknown, itching and skin rashes, 05/22/19) PMhx/Soc History of Surgery: Yes (cholecystectomy, , GT PLACEMENT) Anesthesia Reaction: No Hx Neurological Disorder: No Hx Respiratory Disorders: Yes (pneumonia) Hx Cardiac Disorders: No Hx Psychiatric Problems: No Hx Miscellaneous Medical Probl: No Hx Alcohol Use: No Hx Substance Use: No Hx Tobacco Use: No Smoking Status: Never smoker FmHx Family History: No diabetes Physical Exam Vitals Vital Signs Date Temp Pulse Resp B/P (MAP) Pulse Ox O2 O2 Flow FiO2 Time Delivery Rate 05/22/19 97 18 169/67 100 Room Air 20:27 (101) 05/22/19 98.8 97 18 163/80 100 Room Air 19:30 (107) 05/22/19 99.5 115 18 141/91 99 17:17 (108) Physical Exam Const: Moderate distress Head: Atraumatic Eyes: Normal Conjunctiva ENT: Normal External Ears, Nose and Mouth. Neck: Full range of motion. No meningismus. Resp: Clear to auscultation bilaterally Cardio: Regular rate and rhythm, no murmurs Abd: Soft, epigastric tenderness to palpation without rebound or guarding Skin: No petechiae or rashes Back: No midline or flank tenderness Ext: No cyanosis, or edema Neur: Awake and alert Psych: Normal Mood and Affect Result Diagram: 05/22/19 1756 05/22/19 175 Results 24 hrs Laboratory Tests Test 05/22/19 17:56 White Blood Count 21.0 10^3/ul Red Blood Count 3.71 10^6/ul Hemoglobin 9.7 g/dl Hematocrit 31.0 % Mean Corpuscular Volume 83.6 fl Mean Corpuscular Hemoglobin 26.1 pg Mean Corpuscular Hemoglobin Concent 31.3 g/dl Red Cell Distribution Width 18.8 % Platelet Count 742 10^3/UL Mean Platelet Volume 9.1 fl Immature Granulocytes % 3.800 % Neutrophils % % Segmented Neutrophils % (Manual) 70 % Lymphocytes % % Lymphocytes % (Manual) 16 % Monocytes % % Monocytes % (Manual) 6 % Eosinophils % % Eosinophils % (Manual) 6 % Basophils % % Basophils % (Manual) 1 % Metamyelocytes % (manual) 1 % Nucleated Red Blood Cells % 0.0 /100WBC Immature Granulocytes # 0.790 10^3/ul Neutrophils # 10^3/ul Lymphocytes (Manual) 3.3 10^3/ul Lymphocytes # 10^3/ul Monocytes # 10^3/ul Monocytes # (Manual) 1.2 10^3/ul Eosinophils # 10^3/ul Basophils # 10^3/ul Basophils # (Manual) 0.2 10^3/ul Metamyelocytes # 0.2 10^3/ul Nucleated Red Blood Cells # 10^3/ul Platelet Estimate INCREASED Giant Platelets 1 % Polychromasia 1+ Hypochromasia 1+ Poikilocytosis 1+ Anisocytosis 2+ Microcytosis 2+ Ovalocytes 1+ Sodium Level 136 mmol/L Potassium Level 4.1 mmol/L Chloride Level 109 mmol/L Carbon Dioxide Level 14 mmol/L Anion Gap 13 Blood Urea Nitrogen 13 mg/dl Creatinine 1.36 mg/dl Est Glomerular Filtrat Rate mL/min 39 mL/min Glucose Level 116 mg/dl Calcium Level 11.0 mg/dl Total Bilirubin 0.3 mg/dl Direct Bilirubin 0.00 mg/dl Indirect Bilirubin 0.3 mg/dl Aspartate Amino Transf (AST/SGOT) 20 IU/L Alanine Aminotransferase (ALT/SGPT) 15 IU/L Alkaline Phosphatase 115 IU/L Total Protein 7.2 g/dl Albumin 3.4 g/dl Globulin 3.80 g/dl Albumin/Globulin Ratio 0.89 Lipase 639 U/L Current Medications Medications Dose Sig/Lisbeth Start Time Status Last (Trade) Ordered Route PRN Stop Time Admin Dose Reason Admin Ondansetron 4 mg ONCE STAT 05/22/19 DC 05/22/19 HCl (Zofran IV 17:48 18:09 Inj) 05/22/19 17:50 Lorazepam 1 mg ONCE ONCE 05/22/19 DC 05/22/19 (Ativan) IV 18:00 18:01 05/22/19 18:01 Sodium 1,000 ml @ Q1H STAT 05/22/19 DC 05/22/19 Chloride 1,000 mls/hr IV 19:13 19:19 05/22/19 20:12 Ondansetron 4 mg BRIDGE ORDER 05/22/19 HCl (Zofran PRN IV 19:30 Inj) NAUSEA/VOMITI 05/23/19 19:29 NG 650 mg ER BRIDGE 05/22/19 Acetaminophen PRN PO 19:30 (Tylenol .MILD PAIN 05/23/19 19:29 Tab) 1-3 OR TEMP Procedures/MDM Patient is a 64-year-old female with multiple comorbidities who presents with nausea, vomiting, and diarrhea. The patient was given Zofran and Ativan as well as fluids. The patient was found to have a lipase of greater than 600 I am concerned about early pancreatitis. The patient will be admitted to the care of the panel team to a medical surgical bed. The patient has failed outpatient treatment at this time. The patient will benefit from a medical surgical inpatient bed. Departure Diagnosis: Primary Impression: Dehydration Additional Impressions: Diarrhea Diarrhea type: unspecified type Qualified Codes: R19.7 - Diarrhea, unspecified Vomiting Vomiting type: unspecified Vomiting Intractability: non-intractable Nausea presence: with nausea Qualified Codes: R11.2 - Nausea with vomiting, unspecified Condition: YULIYA Crespo MD 15, 2019 20:31
[2019-05-22] MEDS ORDERED: morphine 2 MG INJ IV PRN (21:00)
[2019-05-22] MEDS ORDERED: NACL 0.9% 3 ML SYG IV SCH (21:00)
[2019-05-22] MEDS ORDERED: PIPER-TAZO 2.25 GM (PMX) 50 ML IVPB SCH (21:00)
[2019-05-22] MEDS ORDERED: ACETAMINOPHEN 650 MG SUPP PR PRN (21:00)
[2019-05-22] MEDS ORDERED: ALBUTEROL/IPRATROPIUM (NEB) 3 ML AMP HHN PRN (21:00)
[2019-05-22 21:10] VITALS: BP 158/71; PULSE 104; RESP 18
[2019-05-22 21:15] VITALS: Ht 149.9 cm; Wt 81.9 kg
[2019-05-22] MEDS: DEXTROSE 5%-0.45% NACL 1,000 ML IV SCH (22:15)
[2019-05-22] MEDS: FAMOTIDINE 20 MG INJ IV SCH (22:15)
--- NOTE | 2019-05-22 22:33 | HP ---
Date/Time of Note Date/Time of Note DATE: 05/22/19 TIME: 22:33 Assessment/Plan VTE Prophylaxis Pharmacological prophylaxis: heparin Lines/Catheters IV Catheter Type (from Nrsg): Saline Lock Assessment/Plan Assessment/Plan 1. Sepsis, as evidenced by leukocytosis and tachycardia: Suspect gastroenteritis and possibly C. difficile colitis -Patient with reported nausea/vomiting and diarrhea -CT abdomen/pelvis -Follow-up culture results -Stool studies including C. difficile -Zosyn 2. Pancreatitis -Keep n.p.o. with IV fluid -Pain management 3. Dysphagia status post G-tube placement 10 days ago -Appears to be normal function. Follow-up CT was mentioned #1 4. Acute renal insufficiency, slightly worsening -Continue IV fluid -Recent CT showed severe atrophy of the right kidney 5. Diabetes: Insulin while in-house 6. Hypertension: PRN IV antihypertensives while n.p.o. Result Diagram: 05/22/19 1756 05/22/19 1756 Results 24hrs Laboratory Tests Test 05/22/19 17:56 05/22/19 20:06 White Blood Count 21.0 H Red Blood Count 3.71 L Hemoglobin 9.7 L Hematocrit 31.0 L Mean Corpuscular Volume 83.6 Mean Corpuscular Hemoglobin 26.1 L Mean Corpuscular Hemoglobin Concent 31.3 L Red Cell Distribution Width 18.8 H Platelet Count 742 #H Mean Platelet Volume 9.1 Immature Granulocytes % 3.800 H Neutrophils % Segmented Neutrophils % (Manual) 70 Lymphocytes % Lymphocytes % (Manual) 16 Monocytes % Monocytes % (Manual) 6 Eosinophils % Eosinophils % (Manual) 6 Basophils % Basophils % (Manual) 1 Metamyelocytes % (manual) 1 H Nucleated Red Blood Cells % 0.0 Immature Granulocytes # 0.790 H Neutrophils # Lymphocytes (Manual) 3.3 H Lymphocytes # Monocytes # Monocytes # (Manual) 1.2 H Eosinophils # Basophils # Basophils # (Manual) 0.2 H Metamyelocytes # 0.2 H Nucleated Red Blood Cells # Platelet Estimate INCREASED Giant Platelets 1 H Polychromasia 1+ Hypochromasia 1+ Poikilocytosis 1+ Anisocytosis 2+ Microcytosis 2+ Ovalocytes 1+ Sodium Level 136 Potassium Level 4.1 Chloride Level 109 Carbon Dioxide Level 14 L Anion Gap 13 Blood Urea Nitrogen 13 Creatinine 1.36 H Est Glomerular Filtrat Rate mL/min 39 L Glucose Level 116 Calcium Level 11.0 H Total Bilirubin 0.3 Direct Bilirubin 0.00 Indirect Bilirubin 0.3 Aspartate Amino Transf (AST/SGOT) 20 Alanine Aminotransferase (ALT/SGPT) 15 Alkaline Phosphatase 115 Total Protein 7.2 Albumin 3.4 Globulin 3.80 H Albumin/Globulin Ratio 0.89 Lipase 639 H Urine Color YELLOW Urine Clarity CLOUDY A Urine pH 6.0 Urine Specific [place] 1.010 Urine Ketones TRACE A Urine Nitrite NEGATIVE Urine Bilirubin NEGATIVE Urine Urobilinogen NEGATIVE Urine Leukocyte Esterase NEGATIVE Urine Microscopic RBC 4 Urine Microscopic WBC 3 Urine Squamous Epithelial Cells MODERATE Urine Bacteria FEW A Urine Hemoglobin NEGATIVE Urine Glucose NEGATIVE Urine Total Protein 1+ H HPI/ROS Admit Date/Time Admit Date/Time May 22, 2019 at 19:22 Hx of Present Illness Patient is a 64-year-old female with a history of diabetes, hypertension, depression, moderate gastritis/esophagitis, severe atrophy of right kidney, dysphagia status post G-tube about 2 weeks ago. Patient presents the ER complaining of abdominal pain, nausea/vomiting and diarrhea. Symptoms been going on for about a day or 2. Emesis is described as nonbilious and nonbloody and the diarrhea watery/loose, but nonbloody. Patient was discharged from here about 10 days ago after she was admitted for dysphagia. At that time she was seen by GI and had a work-up with no definitive diagnosis. G-tube was placed at that time. Currently, G-tube appears to be intact and did not see any erythema and also no tenderness around it. When she presented to the ER, she had a temp of 99.5, WBC 21,000. Creatinine 1.36. Lipase 639. PMH/Family/Social Past Medical History Past Surgical Hx: other (see HPI) Family History Significant Family History: no pertinent family hx Social History Alcohol Use: none Smoking Status: Never smoker Drug Use: none Exam Constitutional: No acute distress Head: normocephalic, atraumatic Eyes: EOMI, PERRL Respiratory: no distress Cardiovascular: regular rate and rhythm Gastrointestinal: soft Extremities: normal pulses Medications Current Medications Dextrose/Sodium Chloride 1,000 ml @ 100 mls/hr Q10H IV ; Start 05/22/19 at 20:49 IV Flush (NS 3 ml) 3 ml PER PROTOCOL IV ; Start 05/22/19 at 21:00 Ondansetron HCl (Zofran Inj) 4 mg Q6H PRN IV NAUSEA/VOMITING; Start 05/22/19 at 21:00 Acetaminophen (Tylenol Supp) 650 mg Q6H PRN [place] .PAIN 1-3 OR TEMP; Start 05/08 03/26 at 21:00 Morphine Sulfate (morphine) 2 mg Q4H PRN IV .SEVERE PAIN 7-10; Start 05/22/19 at 21:00 Famotidine (Pepcid Iv) 20 mg DAILY IV ; Start 05/22/19 at 21:00 Albuterol/ Ipratropium (Duoneb) 3 ml Q2H RESP THERAPY PRN HHN SHORTNESS OF BREATH; Start 05/22/19 at 21:00 Piperacillin Sod/ Tazobactam Sod 50 ml @ 100 mls/hr Q6 IVPB ; Start 05/22/19 at 21:00 Coded Allergies: nitrofurantoin (Unverified Allergy, Unknown, itching and skin rashes, 05/22/19) Past Surgical History Past Surgical Hx: cholecystectomy, endoscopy, other Family History Significant Family History: no pertinent family hx Social History Smoking Status: Never smoker Exam/Review of Systems Vital Signs Vitals Vital Signs Date Temp Pulse Resp B/P (MAP) Pulse Ox O2 O2 Flow FiO2 Time Delivery Rate 05/22/19 98.7 104 18 158/71 97 Room Air 21:10 (100) DOUGLAS MCKENZIE MD May 22, 2019 22:33
[2019-05-23] MEDS ORDERED: ZOLPIDEM 5 MG TAB PO SCH (00:30)
[2019-05-23] MEDS: INSULIN ASPART [NOVOLOG] 3 ML PEN SC SCH ×6 (01:00→20:42)
[2019-05-23 02:03] VITALS: BP 141/63; PULSE 88; RESP 17
[2019-05-23] MEDS: PIPER-TAZO 2.25 GM (PMX) 50 ML IVPB SCH ×2 (05:19→12:10)
[2019-05-23] MEDS: DEXTROSE 5%-0.45% NACL 1,000 ML IV SCH ×2 (05:49→20:34)
[2019-05-23 07:27] VITALS: BP 144/63; PULSE 82; RESP 18
[2019-05-23] MEDS: FAMOTIDINE 20 MG INJ IV SCH ×2 (08:15→20:33)
--- NOTE | 2019-05-23 10:28 | CONS ---
Assessment/Plan Assessment/Plan Hospital Course (Demo Recall) Summary Assessment and Plan: Assessment: Sepsis -Underlying colitis? vs other Nausea/vomiting/Diarrhea -CDIFF pending Elevated lipase- in the setting of KENNY Thrombocytosis, likely reactive Acute renal insufficiency Diabetes Recent history of PNA and UTI Plan: Continue Zosyn Strict NPO today Recommend fluid resuscitation Will check triglyceride level CT abd/pelvis pending Will additionally check stool cx, and o&p Further recommendations based on clinical course Patient seen in collaboration with Dr. Vasquez CC: CESARIO VASQUEZ MD ; Consultation Date/Type/Reason Admit Date/Time May 22, 2019 at 19:22 Date of Consultation: May 23, 2019 Type of Consult Gastroenterology Date/Time of Note DATE: 05/23/19 TIME: 09:58 Hx of Present Illness This is a 64-year-old female with past medical history of dyslipidemia, diabetes, hypertension, recurrent UTI's who was recently admitted to [facility] for recurrent UTI and poor p.o. intake associated with persistent nausea and vomiting. At that time work-up was completed including gas tric emptying study which was negative,no evidence of dysphasia during hospitalization, however patient continue with poor p.o. intake. A calorie count was completed with recommendations for PEG placement. She is status post PEG placement 05/12/2019. After being deemed stable she was discharged on 05/17/2019. After discharge patient began to have increased shortness of breath and abdominal pain she presented to [facility] 05/19/2019 there she was diagnosed with UTI and pneumonia, treated with antibiotics and subsequently discharged yesterday. However, while at home she started complain of persistent nausea without vomiting and had multiple episodes of diarrhea described as yellow with mucus. She represented to [facility] for further evaluation. Here lab work-up revealed leukocytosis with a WBC on admission of 21.0, normocytic anemia with a hemoglobin 9.7, thrombocytosis platelet count 742 this is likely reactive from underlying infection, creatinine levels 1.36 normal LFTs and elevated lipase of 639. Thus far a CT abdomen pelvis has been ordered and is currently pending C. difficile has been ordered and is in process. UA was completed in the ER showing some abnormalities she is been started on Zosyn. Currently she is n.p.o. with IV hydration nausea has resolved time evaluation patient signs of mild upper abdominal pain 2 out of 10 with deep palpation he is currently not on any pain medication no further episodes of diarrhea today Review of Systems: A 12 system, review was conducted and is negative except as noted in the HPI or here. Past Medical History Home Meds Reported Medications Amlodipine Besylate* (Norvasc*) 5 Mg Tablet, 5 MG PO DAILY, TAB 05/22/19 Atorvastatin* (Atorvastatin*) 40 Mg Tablet, 40 MG PO QHS, #30 TAB 04/23/19 Escitalopram Oxalate* (Escitalopram Oxalate*) 10 Mg Tablet, 10 MG PO DAILY, #30 TAB 04/23/19 Pantoprazole* (Pantoprazole*) 40 Mg Tablet.dr, 40 MG PO AC BREAKFAST, TAB 04/23/19 Discontinued Reported Medications Glimepiride* (Glimepiride*) 1 Mg Tablet, 1 MG PO WITH BREAKFAST PRN for NEEDED, TAB 04/23/19 Clonidine Hcl* (Clonidine Hcl*) 0.1 Mg Tab, 0.1 MG PO TID, TAB 04/23/19 Medications Current Medications Dextrose/Sodium Chloride 1,000 ml @ 100 mls/hr Q10H IV Last administered on 05/22/19at 22:15; Admin Dose 100 MLS/HR; Start 05/22/19 at 20:49 IV Flush (NS 3 ml) 3 ml PER PROTOCOL IV ; Start 05/22/19 at 21:00 Ondansetron HCl (Zofran Inj) 4 mg Q6H PRN IV NAUSEA/VOMITING; Start 05/22/19 at 21:00 Acetaminophen (Tylenol Supp) 650 mg Q6H PRN [place] .PAIN 1-3 OR TEMP; Start 05/22/19 at 21:00 Morphine Sulfate (morphine) 2 mg Q4H PRN IV .SEVERE PAIN 7-10; Start 05/22/19 at 21:00 Famotidine (Pepcid Iv) 20 mg DAILY IV Last administered on 05/23/19at 08:15; Admin Dose 20 MG; Start 05/22/19 at 21:00 Albuterol/ Ipratropium (Duoneb) 3 ml Q2H RESP THERAPY PRN HHN SHORTNESS OF BREATH; Start 05/22/19 at 21:00 Insulin Aspart (Novolog Insulin Pen) NOVOLOG *MILD* ALGORI... Q4 SC ; Start 05/23/19 at 01:00 Piperacillin Sod/ Tazobactam Sod 50 ml @ 100 mls/hr Q6 IVPB Last administered on 05/23/19at 05:19; Admin Dose 100 MLS/HR; Start 05/23/19 at 06:00 Allergies: Coded Allergies: nitrofurantoin (Unverified Allergy, Unknown, itching and skin rashes, 05/22/19) Past Surgical History Past Surgical Hx: cholecystectomy, endoscopy, other Social History Smoking Status: Never smoker Exam/Review of Systems Exam Vitals Vital Signs Date Temp Pulse Resp B/P (MAP) Pulse Ox O2 O2 Flow FiO2 Time Delivery Rate 05/23/19 97.9 82 18 144/63 97 Room Air 07:27 (90) Intake and Output 05/22/19 05/22/19 05/23/19 1515:00 23:00 07:00 IntakeIntake Total 770 ml BalanceBalance 770 ml Exam PHYSICAL EXAMINATION: GENERAL: Well developed, obese, alert & oriented x 3, in no acute distress SKIN: No lesions HEAD: Normocephalic, atraumatic, no tenderness. EYES: Pupils equal reactive to light and accommodation, full extraocular movements, sclera clear, non-icteric, no discharge. EARS/NOSE AND THROAT: Ears normal, nose normal, oropharynx normal, oral membranes well hydrated without lesions. NECK: Supple, no masses. CHEST: Inspection within normal limits. CARDIOVASCULAR: Heart: Regular rate and rhythm RESPIRATORY: Lungs clear to auscultation GASTROINTESTINAL AND LIVER: Abdomen: Soft, non tenderness, non-distended, PEG, no hernias, no masses, no rebound tenderness, normoactive bowel sounds. Rectal: Deferred. EXTREMITIES: No cyanosis, clubbing or edema. Results Result Diagram: 05/23/19 0436 05/23/19 0436 Results 24hrs Laboratory Tests Test 05/22/19 17:56 05/22/19 20:06 05/23/19 02:04 05/23/19 04:36 White Blood Count 21.0 H 19.5 H Red Blood Count 3.71 L 3.68 L Hemoglobin 9.7 L 9.5 L Hematocrit 31.0 L 31.4 L Mean Corpuscular 83.6 85.3 Volume Mean Corpuscular 26.1 L 25.8 L Hemoglobin Mean Corpuscular 31.3 L 30.3 L Hemoglobin Concent Red Cell 18.8 H 19.2 H Distribution Width Platelet Count 742 #H 731 H Mean Platelet Volume 9.1 9.7 Immature 3.800 H 3.900 H Granulocytes % Neutrophils % 70.9 Segmented 70 Neutrophils % (Manual) Lymphocytes % 13.4 L Lymphocytes % 16 (Manual) Monocytes % 7.6 Monocytes % (Manual) 6 Eosinophils % 3.5 Eosinophils % 6 (Manual) Basophils % 0.7 Basophils % (Manual) 1 Metamyelocytes % 1 H (manual) Nucleated Red Blood 0.0 0.0 Cells % Immature 0.790 H 0.760 H Granulocytes # Neutrophils # 13.9 H Lymphocytes (Manual) 3.3 H Lymphocytes # 2.6 Monocytes # 1.5 H Monocytes # (Manual) 1.2 H Eosinophils # 0.7 H Basophils # 0.1 Basophils # (Manual) 0.2 H Metamyelocytes # 0.2 H Nucleated Red Blood 0.0 Cells # Platelet Estimate INCREASED Giant Platelets 1 H Polychromasia 1+ Hypochromasia 1+ Poikilocytosis 1+ Anisocytosis 2+ Microcytosis 2+ Ovalocytes 1+ Sodium Level 136 140 Potassium Level 4.1 4.0 Chloride Level 109 112 H Carbon Dioxide Level 14 L 18 L Anion Gap 13 10 Blood Urea Nitrogen 13 11 Creatinine 1.36 H 1.21 H Est Glomerular 39 L 45 L Filtrat Rate mL/min Glucose Level 116 118 Calcium Level 11.0 H 10.8 H Total Bilirubin 0.3 0.3 Direct Bilirubin 0.00 0.00 Indirect Bilirubin 0.3 0.3 Aspartate Amino 20 20 Transf (AST/SGOT) Alanine 15 12 L Aminotransferase (AL T/SGPT) Alkaline Phosphatase 115 99 Total Protein 7.2 6.7 Albumin 3.4 3.1 L Globulin 3.80 H 3.60 H Albumin/Globulin 0.89 0.86 Ratio Lipase 639 H 662 H Urine Color YELLOW Urine Clarity CLOUDY A Urine pH 6.0 Urine Specific 1.010 [place] Urine Ketones TRACE A Urine Nitrite NEGATIVE Urine Bilirubin NEGATIVE Urine Urobilinogen NEGATIVE Urine Leukocyte NEGATIVE Esterase Urine Microscopic 4 RBC Urine Microscopic 3 WBC Urine Squamous MODERATE Epithelial Cells Urine Bacteria FEW A Urine Hemoglobin NEGATIVE Urine Glucose NEGATIVE Urine Total Protein 1+ H Bedside Glucose 120 Phosphorus Level 4.3 Magnesium Level 1.8 Test 05/23/19 05:19 05/23/19 08:15 Bedside Glucose 114 118 Medications Medication Current Medications Dextrose/Sodium Chloride 1,000 ml @ 100 mls/hr Q10H IV Last administered on 05/22/19at 22:15; Admin Dose 100 MLS/HR; Start 05/22/19 at 20:49 IV Flush (NS 3 ml) 3 ml PER PROTOCOL IV ; Start 05/22/19 at 21:00 Ondansetron HCl (Zofran Inj) 4 mg Q6H PRN IV NAUSEA/VOMITING; Start 05/22/19 at 21:00 Acetaminophen (Tylenol Supp) 650 mg Q6H PRN CO .PAIN 1-3 OR TEMP; Start 05/22/19 at 21:00 Morphine Sulfate (morphine) 2 mg Q4H PRN IV .SEVERE PAIN 7-10; Start 05/22/19 at 21:00 Famotidine (Pepcid Iv) 20 mg DAILY IV Last administered on 05/23/19at 08:15; Admin Dose 20 MG; Start 05/22/19 at 21:00 Albuterol/ Ipratropium (Duoneb) 3 ml Q2H RESP THERAPY PRN HHN SHORTNESS OF BREATH; Start 05/22/19 at 21:00 Insulin Aspart (Novolog Insulin Pen) NOVOLOG *MILD* ALGORI... Q4 SC ; Start 05/23/19 at 01:00 Piperacillin Sod/ Tazobactam Sod 50 ml @ 100 mls/hr Q6 IVPB Last administered on 05/23/19at 05:19; Admin Dose 100 MLS/HR; Start 05/23/19 at 06:00 BALTA HENDERSON May 23, 2019 10:17
[2019-05-23] MEDS ORDERED: SOD CHLORIDE 0.9% 1,000 ML IV SCH (12:00)
[2019-05-23 13:41] VITALS: BP 154/57; PULSE 85; RESP 18
[2019-05-23] MEDS ORDERED: metroNIDAZOLE 500 MG/NS (PMX) 100 ML IVPB SCH (14:00)
[2019-05-23] MEDS ORDERED: hydrALAzine 20 MG INJ IV PRN (14:30)
[2019-05-23] MEDS ORDERED: ACETAMINOPHEN 1000MG/100ML IV 100 ML IVPB PRN (15:00)
--- NOTE | 2019-05-23 15:10 | PN ---
Date/Time of Note Date/Time of Note DATE: 05/23/19 TIME: 15:10 Objective Vitals Vital Signs Date Temp Pulse Resp B/P (MAP) Pulse Ox O2 O2 Flow FiO2 Time Delivery Rate 05/23/19 98.5 85 18 154/57 100 Room Air 13:41 (89) Intake and Output 05/22/19 05/22/19 05/23/19 1515:00 23:00 07:00 IntakeIntake Total 770 ml BalanceBalance 770 ml Results Result Diagram: 05/23/19 0436 05/23/19 0436 Medications Medications Current Medications IV Flush (NS 3 ml) 3 ml PER PROTOCOL IV ; Start 05/22/19 at 21:00 Ondansetron HCl (Zofran Inj) 4 mg Q6H PRN IV NAUSEA/VOMITING; Start 05/22/19 at 21:00 Acetaminophen (Tylenol Supp) 650 mg Q6H PRN [place] .PAIN 1-3 OR TEMP; Start 05/22/19 at 21:00 Morphine Sulfate (morphine) 2 mg Q4H PRN IV .SEVERE PAIN 7-10; Start 05/22/19 at 21:00 Albuterol/ Ipratropium (Duoneb) 3 ml Q2H RESP THERAPY PRN HHN SHORTNESS OF BREATH; Start 05/22/19 at 21:00 Insulin Aspart (Novolog Insulin Pen) NOVOLOG *MILD* ALGORI... Q4 SC ; Start 05/23/19 at 01:00 Famotidine (Pepcid Iv) 20 mg BID IV ; Start 05/23/19 at 21:00 Sodium Chloride 1,000 ml @ 125 mls/hr Q8H IV Last administered on 05/23/19at 12:07; Admin Dose 125 MLS/HR; Start 05/23/19 at 12:00 Nystatin (Nystatin Powder) 1 applic BID TOP ; Start 05/23/19 at 21:00 Vancomycin HCl (Vancomycin Oral Syringe) 250 mg Q6 PO ; Start 05/23/19 at 16:00 Hydralazine HCl (Apresoline) 10 mg Q4H PRN IV sbp >160; Start 05/23/19 at 14:30 Acetaminophen 100 ml @ 400 mls/hr Q6H PRN IVPB pain; Start 05/23/19 at 15:00; Stop 05/24/19 at 14:59 VTE Prophylaxis Risk score (from Nsg)>0 risk: 5 SCD applied (from [facility] [place]): Yes Lines/Catheters IV Catheter Type: Krishna in Place: No Assessment/Plan Hospital Course Subjective Patient feeling better than when she came in, still has mild abdominal pain and still nauseated with some diarrhea Objective Physical exam General: Patient is laying in bed and answers questions appropriately Mentation: Patient is alert and oriented 4, Head: Normocephalic atraumatic Eyes: EOMI, pupils reactive to light Neck: Supple, nontender, midline Respiratory: Clear to auscultation bilaterally Cardiovascular: regular rate, no obvious murmurs Gastrointestinal: Mildly tender to palpation, bowel sounds heard. Neurological: Moves all extremities spontaneously Skin: No new skin lesions, PEG tube placed Assessment and plan C. difficile colitis -Positive C. difficile, patient has a history of multiple antibiotics due to her multiple stays in many different hospitals -Infectious disease consulted -IV Flagyl ordered, p.o. Vanco once able to tolerate p.o. Sepsis -Cultures pending -CT abdomen pelvis pending, patient refused imaging earlier today, however etiology was unknown at that time, etiology is very likely above C. difficile colitis however will continue to try to convince patient to get CT abdomen pelvis due to possibility of PEG tube malfunctioning and other issues -Continue IV antibiotic, broad-spectrum for now Pancreatitis -Mild, pending CT abdomen and pelvis -N.p.o. with IV fluid per GI recommendations Persistent nausea, vomiting, diarrhea -Patient is a long history with these issues, GI consulted -May be secondary to colitis this time however Dysphasia and chronic nausea, -Status post G-tube placement 10 days ago -Follow-up with CT Acute renal insufficiency -Patient does have episodes of KENNY due to her nausea vomiting inability to tolerate p.o. -Continue IV hydration, will consult nephrology if needed Disposition -Continue treatment for's likely C. difficile colitis causing above problems, continue IV Flagyl. LINDA BOYLE May 23, 2019 15:10
--- NOTE | 2019-05-23 15:59 | CONS ---
DATE OF ADMISSION: 05/22/2019 DATE OF CONSULTATION: 05/23/2019 TYPE OF CONSULTATION: Infectious disease. REASON FOR CONSULTATION: Antibiotic management. HISTORY OF PRESENT ILLNESS: Linsey Lott is a 64-year-old female with a history of known diabetes , hypertension, depression, moderate gastritis and esophagitis. Patient also has severe atrophy of t he right kidney. She has dysphagia, status post G-tube placement about 2 weeks ago. The patient pre sents to the Emergency Room with abdominal pain, nausea, vomiting and diarrhea. Her symptoms have be en going on for about 2 days prior to admission. The emesis is nonbilious, nonbloody. The diarrhea is watery and loose but nonbloody. She was discharged from [facility] about 10 day s ago after she was admitted for dysphagia. A G-tube was placed at that time. Currently, the G-tube appears to be intact without erythema or induration. In the Emergency Room, temperature was 99.5. White count was 21,000, H and H is 9.7 and 31, platelet count 742,000. BUN and creatinine 13/1.36, g lucose 116. She has 70 polys, 16 lymphs. PAST MEDICAL HISTORY: As outlined. FAMILY HISTORY: Noncontributory. PAST SURGICAL HISTORY: Status post cholecystectomy. SOCIAL HISTORY: She does not smoke, drink or abuse drugs. ALLERGIES: NONE TO PENICILLIN, SULFA OR FOODS. MEDICATIONS: Per chart. REVIEW OF SYSTEMS: Noncontributory. PHYSICAL EXAMINATION: GENERAL: The patient presented in moderate distress. VITAL SIGNS: Stable. She is afebrile. SKIN: Without generalized rash. HEENT: Within normal limits. NECK: Supple. LYMPH NODES: None palpable. CHEST: Decreased breath sounds at the bases. HEART: Without murmur or gallop. ABDOMEN: Soft. She has epigastric tenderness without rebound or guarding, without organosplenomeg natalie or masses. EXTREMITIES: Without cyanosis, clubbing, or edema. BACK: Without flank tenderness. RECTAL AND GENITAL: Deferred. NEUROLOGIC: No focal neurological abnormality. IMPRESSION AND PLAN: Patient I believe was restarted on Zosyn. She has numerous comorbidities. Her lipase is greater than 600 and is concerning for early pancreatitis. She is dehydrated. She has di arrhea, nausea and vomiting. She has sepsis as evidenced by leukocytosis and tachycardia. Suspect g astroenteritis, possibly C. difficile. The patient was placed on Zosyn. CT scans pending. Her C. d ifficile toxin is positive. The patient is on Zosyn and she should be placed on vancomycin orally. A white count today is 19.5. Urinalysis is essentially negative. The G-tube is functioning. Patien t seen by GI, elevated lipase in the setting of acute renal insufficiency. Thrombocytosis likely marshal ctive, recent history of pneumonia and urinary tract infection. CT scan of the abdomen and pelvis is pending. The patient has, as I noted, C. difficile. She also has diabetic. For now will add the v ancomycin and consider stopping the Zosyn. I will dictate my findings to the hospitalist, to Dr. Vasquez and Cyndee . Dictated By: TOMMY MARTINEZ MD, JD/NTS Conf#: [id number] DID#: [id number] CC: DOUGLAS MCKENZIE MD;*EndCC*
[2019-05-23] MEDS: VANCOMYCIN HCL 250 MG/5ML POSYG PO SCH (16:35)
[2019-05-23 20:18] VITALS: BP 132/59; PULSE 87; RESP 19
[2019-05-23] MEDS: NYSTATIN 30 GM POWDER BTL TOP SCH (20:35)
[2019-05-23] MEDS ORDERED: ZOLPIDEM 5 MG TAB PO ONE (21:00)
[2019-05-24] MEDS: VANCOMYCIN HCL 250 MG/5ML POSYG PO SCH ×4 (00:13→17:05)
[2019-05-24] MEDS: INSULIN ASPART [NOVOLOG] 3 ML PEN SC SCH ×6 (01:00→20:39)
[2019-05-24] MEDS: DEXTROSE 5%-0.45% NACL 1,000 ML IV SCH ×4 (02:00→15:44)
[2019-05-24 02:31] VITALS: BP 124/56; PULSE 82; RESP 17
[2019-05-24 07:32] VITALS: BP 145/64; PULSE 81; RESP 18
[2019-05-24] MEDS: NYSTATIN 30 GM POWDER BTL TOP SCH ×2 (08:08→20:39)
[2019-05-24] MEDS: FAMOTIDINE 20 MG INJ IV SCH ×2 (08:08→20:30)
--- NOTE | 2019-05-24 10:23 | PN ---
Date/Time of Note Date/Time of Note DATE: 05/24/19 TIME: 10:16 Assessment/Plan VTE Prophylaxis Risk score (from Ns)>0 risk: 4 SCD applied (from Ns): No SCD contraindicated: other (scds) Pharmacological prophylaxis: other (scds) Lines/Catheters IV [facility] Type (from [facility]): Peripheral IV Urinary Cath still in place: No Assessment/Plan Hospital Course Summary Assessment and Plan: Assessment: Diarrhea 2/2 to C. Difficile Sepsis- 2/2 to CDIFF Nausea/vomiting- resolved Elevated lipase- in the setting of KENNY- improving Thrombocytosis, likely reactive- improving Acute renal insufficiency- improving Chronic severe right renal atrophy. Diabetes HTN Recent history of PNA and UTI Mild hepatic steatosis. Plan: ABX per ID- P.o. vancomycin 250 mg every 6 hours No abd pain- plan to re-start TF Further recommendations based on clinical course Subjective: Course reviewed with nursing staff Patient interviewed and examined All labs, imaging and other results reviewed The patient resting in bed, no c/o abdominal pain No c/o nausea/vomiting. No episodes of diarrhea today or yesterday Continue observation Exam PHYSICAL EXAMINATION: GENERAL: Well developed, obese, alert & oriented x 3, in no acute distress SKIN: No lesions HEAD: Normocephalic, atraumatic, no tenderness. EYES: Pupils equal reactive to light and accommodation, full extraocular movements, sclera clear, non-icteric, no discharge. EARS/NOSE AND THROAT: Ears normal, nose normal, oropharynx normal, oral membranes well hydrated without lesions. NECK: Supple, no masses. CHEST: Inspection within normal limits. CARDIOVASCULAR: Heart: Regular rate and rhythm RESPIRATORY: Lungs clear to auscultation GASTROINTESTINAL AND LIVER: Abdomen: Soft, non tenderness, non-distended, PEG, no hernias, no masses, no rebound tenderness, normoactive bowel sounds. Rectal: Deferred. EXTREMITIES: No cyanosis, clubbing or edema. Result Diagram: 05/24/19 0437 05/24/19 0437 Results 24hrs Laboratory Tests Test 05/23/19 12:06 05/23/19 17:00 05/23/19 20:31 05/24/19 01:07 Bedside Glucose 94 83 78 102 Test 05/24/19 04:37 05/24/19 05:21 05/24/19 08:07 White Blood Count 16.9 H Red Blood Count 3.33 L Hemoglobin 8.6 L Hematocrit 28.4 L Mean Corpuscular 85.3 Volume Mean Corpuscular 25.8 L Hemoglobin Mean Corpuscular 30.3 L Hemoglobin Concent Red Cell 19.2 H Distribution Width Platelet Count 664 H Mean Platelet Volume 9.5 Immature 3.000 H Granulocytes % Neutrophils % 69.9 Lymphocytes % 14.7 L Monocytes % 6.7 Eosinophils % 5.1 Basophils % 0.6 Nucleated Red Blood 0.0 Cells % Immature 0.500 H Granulocytes # Neutrophils # 11.8 H Lymphocytes # 2.5 Monocytes # 1.1 H Eosinophils # 0.9 H Basophils # 0.1 Nucleated Red Blood 0.0 Cells # Sodium Level 141 Potassium Level 3.9 Chloride Level 115 H Carbon Dioxide Level 18 L Anion Gap 8 Blood Urea Nitrogen 7 Creatinine 1.06 H Est Glomerular 52 L Filtrat Rate mL/min Glucose Level 104 Calcium Level 10.4 H Phosphorus Level 3.5 Magnesium Level 1.6 L Amylase Level 122 Lipase 524 H Bedside Glucose 96 111 Exam/Review of Systems Exam Vitals Vital Signs Date Temp Pulse Resp B/P (MAP) Pulse Ox O2 O2 Flow FiO2 Time Delivery Rate 05/24/19 98.5 81 18 145/64 98 07:32 (91) 05/23/19 Room Air 13:41 Intake and Output 05/23/19 05/23/19 05/24/19 1515:00 23:00 07:00 IntakeIntake Total 1050 ml 1000 ml 1000 ml BalanceBalance 1050 ml 1000 ml 1000 ml Results Results 24hrs Laboratory Tests Test 05/23/19 12:06 05/23/19 17:00 05/23/19 20:31 05/24/19 01:07 Bedside Glucose 94 83 78 102 Test 05/24/19 04:37 05/24/19 05:21 05/24/19 08:07 White Blood Count 16.9 H Red Blood Count 3.33 L Hemoglobin 8.6 L Hematocrit 28.4 L Mean Corpuscular 85.3 Volume Mean Corpuscular 25.8 L Hemoglobin Mean Corpuscular 30.3 L Hemoglobin Concent Red Cell 19.2 H Distribution Width Platelet Count 664 H Mean Platelet Volume 9.5 Immature 3.000 H Granulocytes % Neutrophils % 69.9 Lymphocytes % 14.7 L Monocytes % 6.7 Eosinophils % 5.1 Basophils % 0.6 Nucleated Red Blood 0.0 Cells % Immature 0.500 H Granulocytes # Neutrophils # 11.8 H Lymphocytes # 2.5 Monocytes # 1.1 H Eosinophils # 0.9 H Basophils # 0.1 Nucleated Red Blood 0.0 Cells # Sodium Level 141 Potassium Level 3.9 Chloride Level 115 H Carbon Dioxide Level 18 L Anion Gap 8 Blood Urea Nitrogen 7 Creatinine 1.06 H Est Glomerular 52 L Filtrat Rate mL/min Glucose Level 104 Calcium Level 10.4 H Phosphorus Level 3.5 Magnesium Level 1.6 L Amylase Level 122 Lipase 524 H Bedside Glucose 96 111 Medications Medication Current Medications IV Flush (NS 3 ml) 3 ml PER PROTOCOL IV ; Start 05/22/19 at 21:00 Ondansetron HCl (Zofran Inj) 4 mg Q6H PRN IV NAUSEA/VOMITING; Start 05/22/19 at 21:00 Acetaminophen (Tylenol Supp) 650 mg Q6H PRN [place] .PAIN 1-3 OR TEMP; Start 05/22/19 at 21:00 Morphine Sulfate (morphine) 2 mg Q4H PRN IV .SEVERE PAIN 7-10; Start 05/22/19 at 21:00 Albuterol/ Ipratropium (Duoneb) 3 ml Q2H RESP THERAPY PRN HHN SHORTNESS OF BREATH; Start 05/22/19 at 21:00 Insulin Aspart (Novolog Insulin Pen) NOVOLOG *MILD* ALGORI... Q4 SC ; Start 05/23/19 at 01:00 Famotidine (Pepcid Iv) 20 mg BID IV Last administered on 05/24/19at 08:08; Admin Dose 20 MG; Start 05/23/19 at 21:00 Nystatin (Nystatin Powder) 1 applic BID TOP Last administered on 05/24/19at 08:08; Admin Dose 1 APPLIC; Start 05/23/19 at 21:00 Vancomycin HCl (Vancomycin Oral Syringe) 250 mg Q6 PO Last administered on 05/24/19at 05:26; Admin Dose 250 MG; Start 05/23/19 at 16:00 Hydralazine HCl (Apresoline) 10 mg Q4H PRN IV sbp >160; Start 05/23/19 at 14:30 Acetaminophen 100 ml @ 400 mls/hr Q6H PRN IVPB pain; Start 05/23/19 at 15:00; Stop 05/24/19 at 14:59 Dextrose/Sodium Chloride 1,000 ml @ 125 mls/hr Q8H IV Last administered on 05/24/19at 05:25; Admin Dose 125 MLS/HR; Start 05/23/19 at 18:00 BALTA HENDERSON May 24, 2019 10:23
[2019-05-24] MEDS ORDERED: MAGNESIUM SULFATE 2 GM/50 ML 50 ML IVPB ONE (10:30)
--- NOTE | 2019-05-24 11:19 | PN ---
Date/Time of Note Date/Time of Note DATE: 05/24/19 TIME: 11:13 Objective Vitals Vital Signs Date Temp Pulse Resp B/P (MAP) Pulse Ox O2 O2 Flow FiO2 Time Delivery Rate 05/24/19 98.5 81 18 145/64 98 07:32 (91) 05/23/19 Room Air 13:41 Intake and Output 05/23/19 05/23/19 05/24/19 1414:59 22:59 06:59 IntakeIntake Total 1050 ml 1000 ml 1000 ml BalanceBalance 1050 ml 1000 ml 1000 ml Results Result Diagram: 05/24/1943605/24/19436 Medications Medications Current Medications IV Flush (NS 3 ml) 3 ml PER PROTOCOL IV ; Start 05/22/19 at 21:00 Ondansetron HCl (Zofran Inj) 4 mg Q6H PRN IV NAUSEA/VOMITING; Start 05/22/19 at 21:00 Acetaminophen (Tylenol Supp) 650 mg Q6H PRN PA .PAIN 1-3 OR TEMP; Start 05/22/19 at 21:00 Morphine Sulfate (morphine) 2 mg Q4H PRN IV .SEVERE PAIN 7-10; Start 05/22/19 at 21:00 Albuterol/ Ipratropium (Duoneb) 3 ml Q2H RESP THERAPY PRN HHN SHORTNESS OF BREATH; Start 05/22/19 at 21:00 Insulin Aspart (Novolog Insulin Pen) NOVOLOG *MILD* ALGORI... Q4 SC ; Start 05/23/19 at 01:00 Famotidine (Pepcid Iv) 20 mg BID IV Last administered on 05/24/19at 08:08; Admin Dose 20 MG; Start 05/23/19 at 21:00 Nystatin (Nystatin Powder) 1 applic BID TOP Last administered on 05/24/19at 08:08; Admin Dose 1 APPLIC; Start 05/23/19 at 21:00 Vancomycin HCl (Vancomycin Oral Syringe) 250 mg Q6 PO Last administered on 05/24/19at 05:26; Admin Dose 250 MG; Start 05/23/19 at 16:00 Hydralazine HCl (Apresoline) 10 mg Q4H PRN IV sbp >160; Start 05/23/19 at 14:30 Acetaminophen 100 ml @ 400 mls/hr Q6H PRN IVPB pain; Start 05/23/19 at 15:00; Stop 05/24/19 at 14:59 Dextrose/Sodium Chloride 1,000 ml @ 125 mls/hr Q8H IV Last administered on 05/24/19at 05:25; Admin Dose 125 MLS/HR; Start 05/23/19 at 18:00 Magnesium Sulfate 50 ml @ 25 mls/hr ONCE ONCE IVPB Last administered on 05/24/19at 11:02; Admin Dose 25 MLS/HR; Start 05/24/19 at 10:30; Stop 05/24/19 at 12:29 VTE Prophylaxis Risk score (from [facility] [place])>0 risk: 4 SCD applied (from [facility] [place]): No SCD contraindication: other Lines/Catheters IV Catheter Type: Krishna in Place: No Assessment/Plan Hospital Course Subjective Patient reports no more abdominal pain, diarrhea, but some nausea associated with oral vanco. Objective Physical exam General: Patient is laying in bed and answers questions appropriately Mentation: Patient is alert and oriented 4, Head: Normocephalic atraumatic Eyes: EOMI, pupils reactive to light Neck: Supple, nontender, midline Respiratory: Clear to auscultation bilaterally Cardiovascular: regular rate, no obvious murmurs Gastrointestinal: Not tender to palpation, bowel sounds heard. Neurological: Moves all extremities spontaneously Skin: No new skin lesions, PEG tube placed Assessment and plan C. difficile colitis -Positive C. difficile, patient has a history of multiple antibiotics due to her multiple stays in many different hospitals -Infectious disease consulted -oral vanco per ID Sepsis -Cultures pending -CT abdomen pelvis noted, no new acute issues -Continue IV antibiotic, broad-spectrum for now Pancreatitis -Mild, pending CT abdomen and pelvis -resolved, starting diet, clear oral and peg tube feeding Persistent nausea, vomiting, diarrhea-resolving -Patient is a long history with these issues, GI consulted -May be secondary to colitis this time , resolving Dysphasia and chronic nausea, -Status post G-tube placement 10 days before admission -resolving Acute renal insufficiency -Patient does have episodes of KENNY due to her nausea vomiting inability to tolerate p.o. -Continue IV hydration, as needed Disposition -Continue treatment for C. difficile colitis causing above problems, continue meds LINDA BOYLE May 24, 2019 11:19
[2019-05-24 14:00] VITALS: BP 142/77; PULSE 96; RESP 18
[2019-05-24] MEDS: ONDANSETRON 4 MG INJ IV PRN (15:56)
--- NOTE | 2019-05-24 18:37 | PSY ---
Date/Time of Note Date/Time of Note DATE: 05/24/19 TIME: 18:33 Psychiatric Subjective Eval Consent Pt consented to telemedicine: No Subjective Evaluation Patient location: inpatient Chief Complaint: VOMITING, DIARRHEA, ONSET TODAY History of present illness Patient is a 64-year-old female with medical history of diabetes, hypertension, depression, gastritis/esophagitis, and dysphagia . Patient was admitted for nausea and vomiting. On a [id number] evaluation she is [place]-speaking only, translation done by charge nurse. Patient states she was sad because of her medical condition, but denies any clinical depression, denies difficulty sleeping, states she only had those problems when she had difficulty breathing. Patient also denies hearing voices, and denies suicidal ideation and contracted for safety. Past psychiatric history Denies Hospitalization: other Medical history Problems Medical Problems: (1) Abdominal pain Status: Acute (2) Abnormal LFTs (liver function tests) Status: Chronic (3) Acute abdominal pain Status: Acute (4) Acute dehydration Status: Acute (5) Acute kidney injury Status: Resolved (6) Acute weakness Status: Acute (7) Bladder infection, acute Status: Acute (8) Chronic kidney disease, stage III (moderate) Status: Chronic (9) Dehydration Status: Acute (10) Diabetes mellitus type 2 in obese Status: Chronic (11) Diarrhea Status: Acute (12) Diarrhea Status: Acute (13) Diarrhea with dehydration Status: Acute (14) Gout of right foot Status: Acute (15) Hyperlipidemia associated with type 2 diabetes mellitus Status: Chronic (16) Hypertension Status: Acute (17) Intractable nausea and vomiting Status: Acute (18) Knee contusion Status: Acute (19) Morbid obesity due to excess calories Status: Chronic (20) Osteoarthritis of foot Status: Acute (21) Pyelonephritis Status: Acute (22) Right ankle sprain Status: Acute (23) Severe dehydration Status: Acute (24) Severe sepsis Status: Acute (25) Skin avulsion Status: Acute (26) UTI (urinary tract infection) Status: Acute (27) Vomiting Status: Acute (28) Vomiting Status: Acute Allergies: Coded Allergies: nitrofurantoin (Unverified Allergy, Unknown, itching and skin rashes, 05/22/19) Substance Abuse Substance abuse history: No Prior substance abuse treatmen: No Social History Marital status: other DPA/Conservatorship: No Psychiatric Objective Eval Mental Status Examination: Laboratory Results Laboratory Tests Test 05/22/19 20:06 05/23/19 02:04 05/23/19 04:36 05/23/19 05:19 Urine Color YELLOW Urine Clarity CLOUDY Urine pH 6.0 Urine Specific 1.010 [place] Urine Ketones TRACE mg/dL Urine Nitrite NEGATIVE mg/dL Urine Bilirubin NEGATIVE mg/dL Urine NEGATIVE mg/dL Urobilinogen Urine Leukocyte NEGATIVE Dion/ul Esterase Urine 4 /HPF Microscopic RBC Urine 3 /HPF Microscopic WBC Urine Squamous MODERATE /HPF Epithelial Cells Urine Bacteria FEW /HPF Urine Hemoglobin NEGATIVE mg/dL Urine Glucose NEGATIVE mg/dL Urine Total 1+ mg/dl Protein Bedside Glucose 120 mg/dL 114 mg/dL White Blood 19.5 10^3/ul Count Red Blood Count 3.68 10^6/ul Hemoglobin 9.5 g/dl Hematocrit 31.4 % Mean Corpuscular 85.3 fl Volume Mean Corpuscular 25.8 pg Hemoglobin Mean Corpuscular 30.3 g/dl Hemoglobin Carlota nt Red Cell 19.2 % Distribution Width Platelet Count 731 10^3/UL Mean Platelet 9.7 fl Volume Immature 3.900 % Granulocytes % Neutrophils % 70.9 % Lymphocytes % 13.4 % Monocytes % 7.6 % Eosinophils % 3.5 % Basophils % 0.7 % Nucleated Red 0.0 /100WBC Blood Cells % Immature 0.760 10^3/ul Granulocytes # Neutrophils # 13.9 10^3/ul Lymphocytes # 2.6 10^3/ul Monocytes # 1.5 10^3/ul Eosinophils # 0.7 10^3/ul Basophils # 0.1 10^3/ul Nucleated Red 0.0 10^3/ul Blood Cells # Sodium Level 140 mmol/L Potassium Level 4.0 mmol/L Chloride Level 112 mmol/L Carbon Dioxide 18 mmol/L Level Anion Gap 10 Blood Urea 11 mg/dl Nitrogen Creatinine 1.21 mg/dl Est Glomerular 45 mL/min Filtrat Rate mL/min Glucose Level 118 mg/dl Calcium Level 10.8 mg/dl Phosphorus Level 4.3 mg/dl Magnesium Level 1.8 mg/dl Total Bilirubin 0.3 mg/dl Direct Bilirubin 0.00 mg/dl Indirect 0.3 mg/dl Bilirubin Aspartate Amino 20 IU/L Transf (AST/SGOT ) Alanine 12 IU/L Aminotransferase (ALT/SGPT) Alkaline 99 IU/L Phosphatase Total Protein 6.7 g/dl Albumin 3.1 g/dl Globulin 3.60 g/dl Albumin/Globulin 0.86 Ratio Triglycerides 159 mg/dl Level Lipase 662 U/L Test 05/23/19 08:15 05/23/19 12:06 05/23/19 17:00 05/23/19 20:31 Bedside Glucose 118 mg/dL 94 mg/dL 83 mg/dL 78 mg/dL Test 05/24/19 01:07 05/24/19 04:37 05/24/19 05:21 05/24/19 08:07 Bedside Glucose 102 mg/dL 96 mg/dL 111 mg/dL White Blood 16.9 10^3/ul Count Red Blood Count 3.33 10^6/ul Hemoglobin 8.6 g/dl Hematocrit 28.4 % Mean Corpuscular 85.3 fl Volume Mean Corpuscular 25.8 pg Hemoglobin Mean Corpuscular 30.3 g/dl Hemoglobin Carlota nt Red Cell 19.2 % Distribution Width Platelet Count 664 10^3/UL Mean Platelet 9.5 fl Volume Immature 3.000 % Granulocytes % Neutrophils % 69.9 % Lymphocytes % 14.7 % Monocytes % 6.7 % Eosinophils % 5.1 % Basophils % 0.6 % Nucleated Red 0.0 /100WBC Blood Cells % Immature 0.500 10^3/ul Granulocytes # Neutrophils # 11.8 10^3/ul Lymphocytes # 2.5 10^3/ul Monocytes # 1.1 10^3/ul Eosinophils # 0.9 10^3/ul Basophils # 0.1 10^3/ul Nucleated Red 0.0 10^3/ul Blood Cells # Sodium Level 141 mmol/L Potassium Level 3.9 mmol/L Chloride Level 115 mmol/L Carbon Dioxide 18 mmol/L Level Anion Gap 8 Blood Urea 7 mg/dl Nitrogen Creatinine 1.06 mg/dl Est Glomerular 52 mL/min Filtrat Rate mL/min Glucose Level 104 mg/dl Calcium Level 10.4 mg/dl Phosphorus Level 3.5 mg/dl Magnesium Level 1.6 mg/dl Amylase Level 122 U/L Lipase 524 U/L Test 05/24/19 12:45 05/24/19 17:04 Bedside Glucose 88 mg/dL 122 mg/dL Assessment and Plan Assessment/Diagnosis Diagnosis Mood disorder due to medical condition. Recommendation/Plan Medication Management No medication required Multiple antipsychotics: No Discharge Disposition: Other Legal Status: Voluntary (Does not meet criteria for 5150 hold) CESIA DEL CID NP May 24, 2019 18:37
[2019-05-24 20:00] VITALS: BP 152/67; PULSE 90; RESP 17
--- NOTE | 2019-05-24 20:59 | PN ---
DATE: 05/24/2019 SUBJECTIVE: The patient is awake, looks comfortable, no fevers overnight. WBC 16.9, platelets 664, neutrophils 69.9, BUN 7, creatinine 1.06. ANTIMICROBIALS: She is on oral vancomycin. INDWELLINGS: PEG. PHYSICAL EXAMINATION: GENERAL: This is a chronically ill-appearing, elderly woman who is awake, in no distress. HEENT: Head atraumatic, normocephalic. NECK: Supple. CHEST: Rise symmetrical. Breath sounds clear, diminished to bases. HEART: S1, S2. ABDOMEN: Soft, bowel sounds present. ASSESSMENT: 1. Systemic inflammatory response syndrome. 2. Clostridium difficile colitis. 3. Status post urinary tract infection. 4. Diabetes. 5. Hypertension. 6. Elevated lipase. PLAN: The patient remains stable and overall doing better. Continue present care. Follow GI recomm endations. Continue oral vancomycin. Dictated By: ANA MARIA ZULETA WEB MARKETING MANAGER for TOMMY MARTINEZ MD NI/NTS Conf#: [id number] DID#: [id number] CC: DOUGLAS MCKENZIE MD;*EndCC*
[2019-05-24] MEDS: ACETAMINOPHEN 650MG/20.3ML CUP PO PRN (21:41)
[2019-05-25] MEDS: VANCOMYCIN HCL 250 MG/5ML POSYG PO SCH ×5 (00:38→23:31)
[2019-05-25] MEDS: INSULIN ASPART [NOVOLOG] 3 ML PEN SC SCH ×6 (00:38→21:00)
[2019-05-25 02:00] VITALS: BP 132/93; PULSE 82; RESP 18
[2019-05-25] MEDS: DEXTROSE 5%-0.45% NACL 1,000 ML IV SCH ×2 (04:10→08:38)
[2019-05-25 08:12] VITALS: BP 140/64; PULSE 85; RESP 18
[2019-05-25] MEDS: ONDANSETRON 4 MG INJ IV PRN (08:32)
[2019-05-25] MEDS: FAMOTIDINE 20 MG INJ IV SCH ×2 (08:32→21:13)
[2019-05-25] MEDS: NYSTATIN 30 GM POWDER BTL TOP SCH ×2 (08:35→21:14)
--- NOTE | 2019-05-25 10:15 | PN ---
Date/Time of Note Date/Time of Note DATE: 05/25/19 TIME: 10:05 Assessment/Plan VTE Prophylaxis Risk score (from [facility] [place])>0 risk: 4 SCD applied (from [facility] [place]): Yes Pharmacological prophylaxis: NA/contraindicated Pharm contraindication: other (scds) Lines/Catheters IV C[facility]ter Type (from [facility] Peripheral IV Urinary Cath still in place: No Assessment/Plan Hospital Course Summary Assessment and Plan: Assessment: Diarrhea 2/2 to C. Difficile Sepsis- 2/2 to CDIFF- resolving Nausea/vomiting- resolved Elevated lipase- in the setting of KENNY- improving Thrombocytosis, likely reactive- improving Acute renal insufficiency- improving Chronic severe right renal atrophy. Normocytic anemia Diabetes HTN Recent history of PNA and UTI Mild hepatic steatosis. Plan: ABX per ID- P.o. vancomycin 250 mg every 6 hours Continue TF to goal Supportive care Continue to monitor labs Patient seen in collaboration with Dr. Vasquez Subjective: Course reviewed with nursing staff Patient interviewed and examined All labs, imaging and other results reviewed Patient feels better today, toileting diet well. C/o some nausea no vomiting. Multiple BMs over night. Discussed results of labs- WBC currently trending down. She is afebrile. Exam PHYSICAL EXAMINATION: GENERAL: Well developed, obese, alert & oriented x 3, in no acute distress SKIN: No lesions HEAD: Normocephalic, atraumatic, no tenderness. EYES: Pupils equal reactive to light and accommodation, full extraocular movements, sclera clear, non-icteric, no discharge. EARS/NOSE AND THROAT: Ears normal, nose normal, oropharynx normal, oral membranes well hydrated without lesions. NECK: Supple, no masses. CHEST: Inspection within normal limits. CARDIOVASCULAR: Heart: Regular rate and rhythm RESPIRATORY: Lungs clear to auscultation GASTROINTESTINAL AND LIVER: Abdomen: Soft, non tenderness, non-distended, PEG, no hernias, no masses, no rebound tenderness, normoactive bowel sounds. Rectal: Deferred. EXTREMITIES: No cyanosis, clubbing or edema. Result Diagram: 05/25/19 0453 05/25/19 0453 Results 24hrs Laboratory Tests Test 05/24/19 12:45 05/24/19 17:04 05/24/19 20:29 05/25/19 00:37 Bedside Glucose 88 122 117 117 Test 05/25/19 04:53 05/25/19 05:29 05/25/19 08:33 White Blood Count 16.0 H Red Blood Count 3.37 L Hemoglobin 8.8 L Hematocrit 28.7 L Mean Corpuscular 85.2 Volume Mean Corpuscular 26.1 L Hemoglobin Mean Corpuscular 30.7 L Hemoglobin Concent Red Cell 19.1 H Distribution Width Platelet Count 624 H Mean Platelet Volume 9.8 Immature 2.100 H Granulocytes % Neutrophils % 68.5 Lymphocytes % 15.7 Monocytes % 6.4 Eosinophils % 6.6 Basophils % 0.7 Nucleated Red Blood 0.0 Cells % Immature 0.340 H Granulocytes # Neutrophils # 11.0 H Lymphocytes # 2.5 Monocytes # 1.0 H Eosinophils # 1.1 H Basophils # 0.1 Nucleated Red Blood 0.0 Cells # Sodium Level 139 Potassium Level 4.0 Chloride Level 113 H Carbon Dioxide Level 18 L Anion Gap 8 Blood Urea Nitrogen 9 Creatinine 0.93 Est Glomerular > 60 Filtrat Rate mL/min Glucose Level 120 Calcium Level 10.4 H Phosphorus Level 2.9 Magnesium Level 1.9 Bedside Glucose 117 113 Exam/Review of Systems Exam Vitals Vital Signs Date Temp Pulse Resp B/P (MAP) Pulse Ox O2 O2 Flow FiO2 Time Delivery Rate 05/25/19 98.1 85 18 140/64 98 Room Air 08:12 (89) Intake and Output 05/24/19 05/24/19 05/25/19 1515:00 23:00 07:00 IntakeIntake Total 250 ml 1510 ml 675 ml BalanceBalance 250 ml 1510 ml 675 ml Results Results 24hrs Laboratory Tests Test 05/24/19 12:45 05/24/19 17:04 05/24/19 20:29 05/25/19 00:37 Bedside Glucose 88 122 117 117 Test 05/25/19 04:53 05/25/19 05:29 05/25/19 08:33 White Blood Count 16.0 H Red Blood Count 3.37 L Hemoglobin 8.8 L Hematocrit 28.7 L Mean Corpuscular 85.2 Volume Mean Corpuscular 26.1 L Hemoglobin Mean Corpuscular 30.7 L Hemoglobin Concent Red Cell 19.1 H Distribution Width Platelet Count 624 H Mean Platelet Volume 9.8 Immature 2.100 H Granulocytes % Neutrophils % 68.5 Lymphocytes % 15.7 Monocytes % 6.4 Eosinophils % 6.6 Basophils % 0.7 Nucleated Red Blood 0.0 Cells % Immature 0.340 H Granulocytes # Neutrophils # 11.0 H Lymphocytes # 2.5 Monocytes # 1.0 H Eosinophils # 1.1 H Basophils # 0.1 Nucleated Red Blood 0.0 Cells # Sodium Level 139 Potassium Level 4.0 Chloride Level 113 H Carbon Dioxide Level 18 L Anion Gap 8 Blood Urea Nitrogen 9 Creatinine 0.93 Est Glomerular > 60 Filtrat Rate mL/min Glucose Level 120 Calcium Level 10.4 H Phosphorus Level 2.9 Magnesium Level 1.9 Bedside Glucose 117 113 Medications Medication Current Medications IV Flush (NS 3 ml) 3 ml PER PROTOCOL IV ; Start 05/22/19 at 21:00 Ondansetron HCl (Zofran Inj) 4 mg Q6H PRN IV NAUSEA/VOMITING Last administered on 05/25/19at 08:32; Admin Dose 4 MG; Start 05/22/19 at 21:00 Morphine Sulfate (morphine) 2 mg Q4H PRN IV .SEVERE PAIN 7-10; Start 05/22/19 at 21:00 Albuterol/ Ipratropium (Duoneb) 3 ml Q2H RESP THERAPY PRN HHN SHORTNESS OF BREATH; Start 05/22/19 at 21:00 Insulin Aspart (Novolog Insulin Pen) NOVOLOG *MILD* ALGORI... Q4 SC ; Start 05/23/19 at 01:00 Famotidine (Pepcid Iv) 20 mg BID IV Last administered on 05/25/19at 08:32; Admin Dose 20 MG; Start 05/23/19 at 21:00 Nystatin (Nystatin Powder) 1 applic BID TOP Last administered on 05/25/19at 08:35; Admin Dose 1 APPLIC; Start 05/23/19 at 21:00 Vancomycin HCl (Vancomycin Oral Syringe) 250 mg Q6 PO Last administered on 05/25/19at 05:33; Admin Dose 250 MG; Start 05/23/19 at 16:00 Hydralazine HCl (Apresoline) 10 mg Q4H PRN IV sbp >160; Start 05/23/19 at 14:30 Dextrose/Sodium Chloride 1,000 ml @ 50 mls/hr Q20H IV Last administered on 05/25/19at 08:38; Admin Dose 50 MLS/HR; Start 05/23/19 at 18:00 Acetaminophen (Tylenol Liquid) 650 mg Q6H PRN PO MILD PAIN(1-3)OR ELEVATED TEMP Last administered on 05/24/19at 21:41; Admin Dose 650 MG; Start 05/24/19 at 21:20 BALTA HENDERSON May 25, 2019 10:15
--- NOTE | 2019-05-25 11:45 | PN ---
Date/Time of Note Date/Time of Note DATE: 05/25/19 TIME: 11:43 Objective Vitals Vital Signs Date Temp Pulse Resp B/P (MAP) Pulse Ox O2 O2 Flow FiO2 Time Delivery Rate 05/25/19 98.1 85 18 140/64 98 Room Air 08:12 (89) Intake and Output 05/24/19 05/24/19 05/25/19 1515:00 23:00 07:00 IntakeIntake Total 250 ml 1510 ml 675 ml BalanceBalance 250 ml 1510 ml 675 ml Results Result Diagram: 05/25/19 0453 05/25/19 0453 Medications Medications Current Medications IV Flush (NS 3 ml) 3 ml PER PROTOCOL IV ; Start 05/22/19 at 21:00 Ondansetron HCl (Zofran Inj) 4 mg Q6H PRN IV NAUSEA/VOMITING Last administered on 05/25/19at 08:32; Admin Dose 4 MG; Start 05/22/19 at 21:00 Morphine Sulfate (morphine) 2 mg Q4H PRN IV .SEVERE PAIN 7-10; Start 05/22/19 at 21:00 Albuterol/ Ipratropium (Duoneb) 3 ml Q2H RESP THERAPY PRN HHN SHORTNESS OF BREATH; Start 05/22/19 at 21:00 Insulin Aspart (Novolog Insulin Pen) NOVOLOG *MILD* ALGORI... Q4 SC ; Start 05/23/19 at 01:00 Famotidine (Pepcid Iv) 20 mg BID IV Last administered on 05/25/19at 08:32; Admin Dose 20 MG; Start 05/23/19 at 21:00 Nystatin (Nystatin Powder) 1 applic BID TOP Last administered on 05/25/19at 08:35; Admin Dose 1 APPLIC; Start 05/23/19 at 21:00 Vancomycin HCl (Vancomycin Oral Syringe) 250 mg Q6 PO Last administered on 05/25/19at 05:33; Admin Dose 250 MG; Start 05/23/19 at 16:00 Hydralazine HCl (Apresoline) 10 mg Q4H PRN IV sbp >160; Start 05/23/19 at 14:30 Acetaminophen (Tylenol Liquid) 650 mg Q6H PRN PO MILD PAIN(1-3)OR ELEVATED TEMP Last administered on 7/17/19at 21:41; Admin Dose 650 MG; Start 05/24/19 at 21:20 Scopolamine (Transderm-Scop) 1 patch Q72H TRANSDERM ; Start 05/25/19 at 12:00; Status UNV VTE Prophylaxis Risk score (from [facility] [place]0 risk: 4 SCD applied (from [facility] [place]): Yes Lines/Catheters IV Catheter Type: Krishna in Place: No Assessment/Plan Hospital Course Subjective Patient still has persistent nausea that has been going on for months Objective Physical exam General: Patient is laying in bed and answers questions appropriately Mentation: Patient is alert and oriented 4, Head: Normocephalic atraumatic Eyes: EOMI, pupils reactive to light Neck: Supple, nontender, midline Respiratory: Clear to auscultation bilaterally Cardiovascular: regular rate, no obvious murmurs Gastrointestinal: Not tender to palpation, bowel sounds heard. Neurological: Moves all extremities spontaneously Skin: No new skin lesions, PEG tube placed Assessment and plan C. difficile colitis, resolving -Positive C. difficile, patient has a history of multiple antibiotics due to her multiple stays in many different hospitals -Infectious disease consulted -oral vanco per ID Sepsis -Cultures pending -CT abdomen pelvis noted, no new acute issues -Continue IV antibiotic, broad-spectrum for now Pancreatitis -Mild, pending CT abdomen and pelvis -resolved, starting diet, clear oral and peg tube feeding Persistent nausea, vomiting, diarrhea-resolving -Patient is a long history with these issues, GI consulted -May be secondary to colitis this time , resolving -Scopolamine patch Dysphasia and chronic nausea, -Status post G-tube placement 10 days before admission -resolving -Curiously enough patient states that she has nausea and inability to eat food however can tolerate tube feeds well. Patient only started tube feeds 10 days ago but states that she had nausea issues for many months prior to previous admission. Acute renal insufficiency -Patient does have episodes of KENNY due to her nausea vomiting inability to tolerate p.o. -Continue IV hydration, as needed Disposition -Continue treatment for C. difficile colitis causing above problems, continue meds -speaking with family regarding SNF placement as patient bounces from hospital to hospital and likely unable to be taken care of at home. LINDA BOYLE May 25, 2019 11:45
--- NOTE | 2019-05-25 12:10 | CONS ---
Assessment/Plan Assessment/Plan Hospital Course (Demo Recall) SUBJECTIVE: The patient is awake, looks comfortable, no fevers overnight, ongoing nausea. ANTIMICROBIALS: Oral vancomycin. INDWELLINGS: PEG. PHYSICAL EXAMINATION: GENERAL: This is a chronically ill-appearing, elderly woman who is awake, in no distress. HEENT: Head atraumatic, normocephalic. NECK: Supple. CHEST: Rise symmetrical. Breath sounds clear, diminished to bases. HEART: S1, S2. ABDOMEN: Soft, bowel sounds present. ASSESSMENT: 1. Systemic inflammatory response syndrome. 2. Clostridium difficile colitis. 3. Status post urinary tract infection. 4. Diabetes. 5. Hypertension. 6. Elevated lipase. PLAN: The patient remains stable. Continue present care. Follow GI recommendations. Continue oral vancomycin. Consultation Date/Type/Reason Admit Date/Time May 22, 2019 at 19:22 Initial Consult Date 05/23/19 Type of Consult id Date/Time of Note DATE: 05/25/19 TIME: 12:08 Exam/Review of Systems Exam Vitals Vital Signs Date Temp Pulse Resp B/P (MAP) Pulse Ox O2 O2 Flow FiO2 Time Delivery Rate 05/25/19 98.1 85 18 140/64 98 Room Air 08:12 (89) Intake and Output 05/24/19 05/24/19 05/25/19 1515:00 23:00 07:00 IntakeIntake Total 250 ml 1510 ml 675 ml BalanceBalance 250 ml 1510 ml 675 ml Results Result Diagram: 05/25/19 0453 05/25/19 0453 Results 24hrs Laboratory Tests Test 05/24/19 12:45 05/24/19 17:04 05/24/19 20:29 05/25/19 00:37 Bedside Glucose 88 122 117 117 Test 05/25/19 04:53 05/25/19 05:29 05/25/19 08:33 White Blood Count 16.0 H Red Blood Count 3.37 L Hemoglobin 8.8 L Hematocrit 28.7 L Mean Corpuscular 85.2 Volume Mean Corpuscular 26.1 L Hemoglobin Mean Corpuscular 30.7 L Hemoglobin Concent Red Cell 19.1 H Distribution Width Platelet Count 624 H Mean Platelet Volume 9.8 Immature 2.100 H Granulocytes % Neutrophils % 68.5 Lymphocytes % 15.7 Monocytes % 6.4 Eosinophils % 6.6 Basophils % 0.7 Nucleated Red Blood 0.0 Cells % Immature 0.340 H Granulocytes # Neutrophils # 11.0 H Lymphocytes # 2.5 Monocytes # 1.0 H Eosinophils # 1.1 H Basophils # 0.1 Nucleated Red Blood 0.0 Cells # Sodium Level 139 Potassium Level 4.0 Chloride Level 113 H Carbon Dioxide Level 18 L Anion Gap 8 Blood Urea Nitrogen 9 Creatinine 0.93 Est Glomerular > 60 Filtrat Rate mL/min Glucose Level 120 Calcium Level 10.4 H Phosphorus Level 2.9 Magnesium Level 1.9 Bedside Glucose 117 113 Medications Medication Current Medications IV Flush (NS 3 ml) 3 ml PER PROTOCOL IV ; Start 05/22/19 at 21:00 Ondansetron HCl (Zofran Inj) 4 mg Q6H PRN IV NAUSEA/VOMITING Last administered on 05/25/19at 08:32; Admin Dose 4 MG; Start 05/22/19 at 21:00 Morphine Sulfate (morphine) 2 mg Q4H PRN IV .SEVERE PAIN 7-10; Start 05/22/19 at 21:00 Albuterol/ Ipratropium (Duoneb) 3 ml Q2H RESP THERAPY PRN HHN SHORTNESS OF BREATH; Start 05/22/19 at 21:00 Insulin Aspart (Novolog Insulin Pen) NOVOLOG *MILD* ALGORI... Q4 SC ; Start 05/23/19 at 01:00 Famotidine (Pepcid Iv) 20 mg BID IV Last administered on 05/25/19at 08:32; Admin Dose 20 MG; Start 05/23/19 at 21:00 Nystatin (Nystatin Powder) 1 applic BID TOP Last administered on 05/25/19at 08:35; Admin Dose 1 APPLIC; Start 05/23/19 at 21:00 Vancomycin HCl (Vancomycin Oral Syringe) 250 mg Q6 PO Last administered on 05/25/19at 05:33; Admin Dose 250 MG; Start 05/23/19 at 16:00 Hydralazine HCl (Apresoline) 10 mg Q4H PRN IV sbp >160; Start 05/23/19 at 14:30 Acetaminophen (Tylenol Liquid) 650 mg Q6H PRN PO MILD PAIN(1-3)OR ELEVATED TEMP Last administered on 05/24/19at 21:41; Admin Dose 650 MG; Start 7/17/19 at 21:20 Scopolamine (Transderm-Scop) 1 patch Q72H TRANSDERM ; Start 05/25/19 at 13:00 ANA MARIA ZULETA NP May 25, 2019 12:10
[2019-05-25] MEDS: SCOPOLAMINE 1.5 MG PATCH TRANSDERM SCH (13:39)
[2019-05-25 13:55] VITALS: BP 134/67; PULSE 89; RESP 18
[2019-05-25 19:30] VITALS: BP 141/63; PULSE 91; RESP 17
[2019-05-25] MEDS: ACETAMINOPHEN 650MG/20.3ML CUP PO PRN (20:37)
[2019-05-26] MEDS: INSULIN ASPART [NOVOLOG] 3 ML PEN SC SCH ×6 (01:00→22:02)
[2019-05-26 02:41] VITALS: BP 132/63; PULSE 90; RESP 18
[2019-05-26] MEDS: VANCOMYCIN HCL 250 MG/5ML POSYG PO SCH ×3 (05:45→17:11)
[2019-05-26 07:32] VITALS: BP 143/66; PULSE 89; RESP 20
[2019-05-26] MEDS: FAMOTIDINE 20 MG INJ IV SCH (08:10)
[2019-05-26] MEDS: NYSTATIN 30 GM POWDER BTL TOP SCH ×2 (08:11→20:41)
[2019-05-26] MEDS ORDERED: ASPIRIN 81 MG TAB ONE (08:32)
[2019-05-26] MEDS: ACETAMINOPHEN 650MG/20.3ML CUP PO PRN (08:39)
--- NOTE | 2019-05-26 10:31 | PN ---
Date/Time of Note Date/Time of Note DATE: 05/26/19 TIME: 10:26 Objective Vitals Vital Signs Date Temp Pulse Resp B/P (MAP) Pulse Ox O2 O2 Flow FiO2 Time Delivery Rate 05/26/19 99.7 08:39 05/26/19 89 20 143/66 96 07:32 (91) 05/26/19 Room Air 02:41 Intake and Output 05/25/19 05/25/19 05/26/19 1515:00 23:00 07:00 IntakeIntake Total 325 ml 118 ml BalanceBalance 325 ml 118 ml Results Result Diagram: 05/26/19 0432 05/26/19 0432 Medications Medications Current Medications IV Flush (NS 3 ml) 3 ml PER PROTOCOL IV ; Start 05/22/19 at 21:00 Ondansetron HCl (Zofran Inj) 4 mg Q6H PRN IV NAUSEA/VOMITING Last administered on 05/25/19at 08:32; Admin Dose 4 MG; Start 05/22/19 at 21:00 Albuterol/ Ipratropium (Duoneb) 3 ml Q2H RESP THERAPY PRN HHN SHORTNESS OF BREATH; Start 05/22/19 at 21:00 Insulin Aspart (Novolog Insulin Pen) NOVOLOG *MILD* ALGORI... Q4 SC ; Start 05/23/19 at 01:00 Famotidine (Pepcid Iv) 20 mg BID IV Last administered on 05/26/19at 08:10; Admin Dose 20 MG; Start 05/23/19 at 21:00 Nystatin (Nystatin Powder) 1 applic BID TOP Last administered on 05/26/19at 08:11; Admin Dose 1 APPLIC; Start 05/23/19 at 21:00 Vancomycin HCl (Vancomycin Oral Syringe) 250 mg Q6 PO Last administered on 05/26/19at 05:45; Admin Dose 250 MG; Start 05/23/19 at 16:00 Hydralazine HCl (Apresoline) 10 mg Q4H PRN IV sbp >160; Start 05/23/19 at 14:30 Acetaminophen (Tylenol Liquid) 650 mg Q6H PRN PO MILD PAIN(1-3)OR ELEVATED TEMP Last administered on 05/26/19at 08:39; Admin Dose 650 MG; Start 05/24/19 at 21:20 Scopolamine (Transderm-Scop) 1 patch Q72H TRANSDERM Last administered on 05/25/19at 13:39; Admin Dose 1 PATCH; Start 05/25/19 at 13:00 VTE Prophylaxis Risk score (from Ns)>0 risk: 5 SCD applied (from Ns): Yes Lines/Catheters IV Catheter Type: Krishna in Place: No Assessment/Plan Hospital Course Subjective Patients nausea has subsided Objective Physical exam General: Patient is laying in bed and answers questions appropriately Mentation: Patient is alert and oriented 4, Head: Normocephalic atraumatic Eyes: EOMI, pupils reactive to light Neck: Supple, nontender, midline Respiratory: Clear to auscultation bilaterally Cardiovascular: regular rate, no obvious murmurs Gastrointestinal: Not tender to palpation, bowel sounds heard. Neurological: Moves all extremities spontaneously Skin: No new skin lesions, PEG tube placed Assessment and plan C. difficile colitis, resolving -Positive C. difficile, patient has a history of multiple antibiotics due to her multiple stays in many different hospitals -Infectious disease consulted -oral vanco per ID Sepsis -Cultures pending -CT abdomen pelvis noted, no new acute issues -Continue IV antibiotic, broad-spectrum for now Pancreatitis -Mild, pending CT abdomen and pelvis -resolved, starting diet, clear oral and peg tube feeding Persistent nausea, vomiting, diarrhea-resolving -Patient is a long history with these issues, GI consulted -May be secondary to colitis this time , resolving -Scopolamine patch Dysphasia and chronic nausea, -Status post G-tube placement 10 days before admission -resolving -Curiously enough patient states that she has nausea and inability to eat food however can tolerate tube feeds well. Patient only started tube feeds 10 days ago but states that she had nausea issues for many months prior to previous admission. Acute renal insufficiency -Patient does have episodes of KENNY due to her nausea vomiting inability to tolerate p.o. -Continue IV hydration, as needed Disposition -Continue treatment for C. difficile colitis causing above problems, continue meds -plan is to dc with hhpt when wbc improves and symptoms resolve. LINDA BOYLE May 26, 2019 10:31
--- NOTE | 2019-05-26 13:20 | CONS ---
Assessment/Plan Assessment/Plan Hospital Course (Demo Recall) SUBJECTIVE: Patient is alert laying comfortably in bed she feels much better today still with diarrhea nausea is better WBC today 15.3 platelets 644 no shift BUN 17 creatinine 0.91 ANTIMICROBIALS: Oral vancomycin. INDWELLINGS: PEG. PHYSICAL EXAMINATION: GENERAL: This is a chronically ill-appearing, elderly woman who is awake, in no distress. HEENT: Head atraumatic, normocephalic. NECK: Supple. CHEST: Rise symmetrical. Breath sounds clear, diminished to bases. HEART: S1, S2. ABDOMEN: Soft, bowel sounds present. ASSESSMENT: 1. Systemic inflammatory response syndrome. 2. Clostridium difficile colitis. 3. Status post urinary tract infection. 4. Diabetes. 5. Hypertension. 6. Elevated lipase. PLAN: Slowly improving. Continue present care. Follow GI recommendations. Continue oral vancomycin. Consultation Date/Type/Reason Admit Date/Time May 22, 2019 at 19:22 Initial Consult Date 05/23/19 Type of Consult id Date/Time of Note DATE: 05/26/19 TIME: 13:19 Exam/Review of Systems Exam Vitals Vital Signs Date Temp Pulse Resp B/P (MAP) Pulse Ox O2 O2 Flow FiO2 Time Delivery Rate 05/26/19 98.7 09:24 05/26/19 89 20 143/66 96 07:32 (91) 05/26/19 Room Air 02:41 Intake and Output 05/25/19 05/25/19 05/26/19 1515:00 23:00 07:00 IntakeIntake Total 325 ml 118 ml BalanceBalance 325 ml 118 ml Results Result Diagram: 05/26/19 0432 05/26/19 0432 Results 24hrs Laboratory Tests Test 05/25/19 17:27 05/25/19 21:12 05/26/19 01:33 05/26/19 04:32 Bedside Glucose 109 108 104 White Blood Count 15.3 H Red Blood Count 3.35 L Hemoglobin 8.8 L Hematocrit 28.0 L Mean Corpuscular 83.6 Volume Mean Corpuscular 26.3 L Hemoglobin Mean Corpuscular 31.4 L Hemoglobin Concent Red Cell 19.3 H Distribution Width Platelet Count 644 H Mean Platelet Volume 9.8 Immature 2.400 H Granulocytes % Neutrophils % 66.7 Lymphocytes % 16.2 Monocytes % 5.9 Eosinophils % 8.2 H Basophils % 0.6 Nucleated Red Blood 0.0 Cells % Immature 0.370 H Granulocytes # Neutrophils # 10.2 H Lymphocytes # 2.5 Monocytes # 0.9 Eosinophils # 1.3 H Basophils # 0.1 Nucleated Red Blood 0.0 Cells # Sodium Level 139 Potassium Level 4.2 Chloride Level 112 H Carbon Dioxide Level 20 L Anion Gap 7 Blood Urea Nitrogen 17 Creatinine 0.91 Est Glomerular > 60 Filtrat Rate mL/min Glucose Level 103 Calcium Level 10.9 H Phosphorus Level 2.7 Magnesium Level 1.7 Test 05/26/19 05:33 05/26/19 08:10 05/26/19 12:07 Bedside Glucose 106 101 102 Medications Medication Current Medications IV Flush (NS 3 ml) 3 ml PER PROTOCOL IV ; Start 05/22/19 at 21:00 Ondansetron HCl (Zofran Inj) 4 mg Q6H PRN IV NAUSEA/VOMITING Last administered on 05/25/19at 08:32; Admin Dose 4 MG; Start 05/22/19 at 21:00 Albuterol/ Ipratropium (Duoneb) 3 ml Q2H RESP THERAPY PRN HHN SHORTNESS OF BREATH; Start 05/22/19 at 21:00 Insulin Aspart (Novolog Insulin Pen) NOVOLOG *MILD* ALGORI... Q4 SC ; Start 05/23/19 at 01:00 Famotidine (Pepcid Iv) 20 mg BID IV Last administered on 05/26/19at 08:10; Admin Dose 20 MG; Start 05/23/19 at 21:00 Nystatin (Nystatin Powder) 1 applic BID TOP Last administered on 05/26/19at 08:11; Admin Dose 1 APPLIC; Start 05/23/19 at 21:00 Vancomycin HCl (Vancomycin Oral Syringe) 250 mg Q6 PO Last administered on 05/26/19at 12:06; Admin Dose 250 MG; Start 05/23/19 at 16:00 Hydralazine HCl (Apresoline) 10 mg Q4H PRN IV sbp >160; Start 05/23/19 at 14:30 Acetaminophen (Tylenol Liquid) 650 mg Q6H PRN PO MILD PAIN(1-3)OR ELEVATED TEMP Last administered on 05/26/19at 08:39; Admin Dose 650 MG; Start 05/24/19 at 21:20 Scopolamine (Transderm-Scop) 1 patch Q72H TRANSDERM Last administered on 05/25/19at 13:39; Admin Dose 1 PATCH; Start 05/25/19 at 13:00 ANA MARIA ZULETA NP May 26, 2019 13:20
[2019-05-26 19:32] VITALS: BP 154/70; PULSE 94; RESP 18
[2019-05-26] MEDS: FAMOTIDINE 20 MG TAB PO SCH (20:41)
[2019-05-27] MEDS: VANCOMYCIN HCL 250 MG/5ML POSYG PO SCH ×4 (00:23→17:23)
[2019-05-27] MEDS: INSULIN ASPART [NOVOLOG] 3 ML PEN SC SCH ×6 (01:00→20:48)
[2019-05-27 02:04] VITALS: BP 132/64; PULSE 89; RESP 20
[2019-05-27] MEDS: FAMOTIDINE 20 MG TAB PO SCH ×2 (08:03→20:43)
[2019-05-27] MEDS: NYSTATIN 30 GM POWDER BTL TOP SCH ×2 (08:04→20:43)
[2019-05-27 08:28] VITALS: BP 125/78; PULSE 102; RESP 20
--- NOTE | 2019-05-27 11:13 | PN ---
Date/Time of Note Date/Time of Note DATE: 05/27/19 TIME: 11:05 Assessment/Plan VTE Prophylaxis Risk score (from Ns)>0 risk: 2 SCD applied (from Nsg): Yes Pharmacological prophylaxis: other (scds) Lines/Catheters IV Catheter Type (from Nrs): Saline Lock Urinary Cath still in place: No Assessment/Plan Hospital Course Summary Assessment and Plan: Assessment: Diarrhea 2/2 to C. Difficile Sepsis- 2/2 to CDIFF- resolving Nausea/vomiting- resolved Elevated lipase- in the setting of KENNY- improving Thrombocytosis, likely reactive- improving Acute renal insufficiency- improving Chronic severe right renal atrophy. Normocytic anemia Diabetes HTN Recent history of PNA and UTI Mild hepatic steatosis. Plan: ABX per ID- P.o. vancomycin 250 mg every 6 hours Continue TF to goal Supportive care Continue to monitor labs CM- H/H pending D/c planning per hospitalist Patient seen in collaboration with Dr. Vasquez Subjective: Course reviewed with nursing staff Patient interviewed and examined All labs, imaging and other results reviewed No over night events, Pt with no BM today, WBC improving Pt feels nauseated when taking PO vanco - she also c/o some lower abd pain Exam PHYSICAL EXAMINATION: GENERAL: Well developed, obese, alert & oriented x 3, in no acute distress SKIN: No lesions HEAD: Normocephalic, atraumatic, no tenderness. EYES: Pupils equal reactive to light and accommodation, full extraocular movements, sclera clear, non-icteric, no discharge. EARS/NOSE AND THROAT: Ears normal, nose normal, oropharynx normal, oral membranes well hydrated without lesions. NECK: Supple, no masses. CHEST: Inspection within normal limits. CARDIOVASCULAR: Heart: Regular rate and rhythm RESPIRATORY: Lungs clear to auscultation GASTROINTESTINAL AND LIVER: Abdomen: Soft, non tenderness, non-distended, PEG, no hernias, no masses, no rebound tenderness, normoactive bowel sounds. Rectal: Deferred. EXTREMITIES: No cyanosis, clubbing or edema. Result Diagram: 05/27/19 0434 05/27/19 0434 Results 24hrs Laboratory Tests Test 05/26/19 12:07 05/26/19 17:11 05/26/19 21:55 05/27/19 01:50 Bedside Glucose 102 102 100 111 Test 05/27/19 04:34 05/27/19 05:41 05/27/19 07:47 White Blood Count 14.8 H Red Blood Count 3.94 L Hemoglobin 10.1 L Hematocrit 33.6 L Mean Corpuscular 85.3 Volume Mean Corpuscular 25.6 L Hemoglobin Mean Corpuscular 30.1 L Hemoglobin Concent Red Cell 19.9 H Distribution Width Platelet Count 696 H Mean Platelet Volume 10.0 Immature 3.100 H Granulocytes % Neutrophils % 61.1 Lymphocytes % 19.4 Monocytes % 7.0 Eosinophils % 8.8 H Basophils % 0.6 Nucleated Red Blood 0.0 Cells % Immature 0.460 H Granulocytes # Neutrophils # 9.1 H Lymphocytes # 2.9 Monocytes # 1.0 H Eosinophils # 1.3 H Basophils # 0.1 Nucleated Red Blood 0.0 Cells # Sodium Level 140 Potassium Level 4.4 Chloride Level 111 H Carbon Dioxide Level 21 Anion Gap 8 Blood Urea Nitrogen 23 H Creatinine 0.97 Est Glomerular 58 L Filtrat Rate mL/min Glucose Level 107 Calcium Level 12.1 H Phosphorus Level 3.3 Magnesium Level 1.7 Bedside Glucose 119 124 Exam/Review of Systems Exam Vitals Vital Signs Date Temp Pulse Resp B/P (MAP) Pulse Ox O2 O2 Flow FiO2 Time Delivery Rate 05/27/19 100.0 102 20 125/78 99 08:28 (94) 05/26/19 Room Air 19:32 Intake and Output 05/26/19 05/26/19 05/27/19 1515:00 23:00 07:00 IntakeIntake Total 120 ml 1630 ml BalanceBalance 120 ml 1630 ml Results Results 24hrs Laboratory Tests Test 05/26/19 12:07 05/26/19 17:11 05/26/19 21:55 05/27/19 01:50 Bedside Glucose 102 102 100 111 Test 05/27/19 04:34 05/27/19 05:41 05/27/19 07:47 White Blood Count 14.8 H Red Blood Count 3.94 L Hemoglobin 10.1 L Hematocrit 33.6 L Mean Corpuscular 85.3 Volume Mean Corpuscular 25.6 L Hemoglobin Mean Corpuscular 30.1 L Hemoglobin Concent Red Cell 19.9 H Distribution Width Platelet Count 696 H Mean Platelet Volume 10.0 Immature 3.100 H Granulocytes % Neutrophils % 61.1 Lymphocytes % 19.4 Monocytes % 7.0 Eosinophils % 8.8 H Basophils % 0.6 Nucleated Red Blood 0.0 Cells % Immature 0.460 H Granulocytes # Neutrophils # 9.1 H Lymphocytes # 2.9 Monocytes # 1.0 H Eosinophils # 1.3 H Basophils # 0.1 Nucleated Red Blood 0.0 Cells # Sodium Level 140 Potassium Level 4.4 Chloride Level 111 H Carbon Dioxide Level 21 Anion Gap 8 Blood Urea Nitrogen 23 H Creatinine 0.97 Est Glomerular 58 L Filtrat Rate mL/min Glucose Level 107 Calcium Level 12.1 H Phosphorus Level 3.3 Magnesium Level 1.7 Bedside Glucose 119 124 Medications Medication Current Medications IV Flush (NS 3 ml) 3 ml PER PROTOCOL IV ; Start 05/22/19 at 21:00 Ondansetron HCl (Zofran Inj) 4 mg Q6H PRN IV NAUSEA/VOMITING Last administered on 05/25/19 08:32; Admin Dose 4 MG; Start 05/22/19 at 21:00 Albuterol/ Ipratropium (Duoneb) 3 ml Q2H RESP THERAPY PRN HHN SHORTNESS OF BREATH; Start 05/22/19 at 21:00 Insulin Aspart (Novolog Insulin Pen) NOVOLOG *MILD* ALGORI... Q4 SC ; Start 05/23/19 at 01:00 Nystatin (Nystatin Powder) 1 applic BID TOP Last administered on 05/27/19 08:04; Admin Dose 1 APPLIC; Start 05/23/19 at 21:00 Vancomycin HCl (Vancomycin Oral Syringe) 250 mg Q6 PO Last administered on 05/27/19 05:42; Admin Dose 250 MG; Start 05/23/19 at 16:00 Hydralazine HCl (Apresoline) 10 mg Q4H PRN IV sbp >160; Start 05/23/19 at 14:30 Acetaminophen (Tylenol Liquid) 650 mg Q6H PRN PO MILD PAIN(1-3)OR ELEVATED TEMP Last administered on 05/26/19 08:39; Admin Dose 650 MG; Start 05/24/19 at 21:20 Scopolamine (Transderm-Scop) 1 patch Q72H TRANSDERM Last administered on 05/25/19at 13:39; Admin Dose 1 PATCH; Start 05/25/19 at 13:00 Famotidine (Pepcid) 20 mg BID PO Last administered on 7/20/19at 08:03; Admin Dose 20 MG; Start 05/26/19 at 21:00 BALTA HENDERSON May 27, 2019 11:13
[2019-05-27] MEDS: ONDANSETRON 4 MG INJ IV PRN ×2 (11:15→17:22)
--- NOTE | 2019-05-27 11:42 | PN ---
Date/Time of Note Date/Time of Note DATE: 05/27/19 TIME: 11:41 Objective Vitals Vital Signs Date Temp Pulse Resp B/P (MAP) Pulse Ox O2 O2 Flow FiO2 Time Delivery Rate 05/27/19 100.0 102 20 125/78 99 08:28 (94) 05/26/19 Room Air 19:32 Intake and Output 05/26/19 05/26/19 05/27/19 1515:00 23:00 07:00 IntakeIntake Total 120 ml 1630 ml BalanceBalance 120 ml 1630 ml Results Result Diagram: 05/27/19 0434 05/27/19 0434 Medications Medications Current Medications IV Flush (NS 3 ml) 3 ml PER PROTOCOL IV ; Start 05/22/19 at 21:00 Ondansetron HCl (Zofran Inj) 4 mg Q6H PRN IV NAUSEA/VOMITING Last administered on 05/27/19at 11:15; Admin Dose 4 MG; Start 05/22/19 at 21:00 Albuterol/ Ipratropium (Duoneb) 3 ml Q2H RESP THERAPY PRN HHN SHORTNESS OF BREATH; Start 05/22/19 at 21:00 Insulin Aspart (Novolog Insulin Pen) NOVOLOG *MILD* ALGORI... Q4 SC ; Start 05/23/19 at 01:00 Nystatin (Nystatin Powder) 1 applic BID TOP Last administered on 05/27/19at 08:04; Admin Dose 1 APPLIC; Start 05/23/19 at 21:00 Vancomycin HCl (Vancomycin Oral Syringe) 250 mg Q6 PO Last administered on 05/27/19at 05:42; Admin Dose 250 MG; Start 05/23/19 at 16:00 Hydralazine HCl (Apresoline) 10 mg Q4H PRN IV sbp >160; Start 05/23/19 at 14:30 Acetaminophen (Tylenol Liquid) 650 mg Q6H PRN PO MILD PAIN(1-3)OR ELEVATED TEMP Last administered on 05/26/19at 08:39; Admin Dose 650 MG; Start 05/24/19 at 21:20 Scopolamine (Transderm-Scop) 1 patch Q72H TRANSDERM Last administered on 05/25/19at 13:39; Admin Dose 1 PATCH; Start 05/25/19 at 13:00 Famotidine (Pepcid) 20 mg BID PO Last administered on 05/27/19at 08:03; Admin Dose 20 MG; Start 05/26/19 at 21:00 Sodium Chloride 1,000 ml @ 70 mls/hr [id number] IV ; Start 05/27/19 at 11:30 VTE Prophylaxis Risk score (from [facility] [place])>0 risk: 2 SCD applied (from [facility]): Yes Lines/Catheters IV Catheter Type: Krishna in Place: No Assessment/Plan Hospital Course Subjective Patients nausea persists whenever she takes oral vancomycin Objective Physical exam General: Patient is laying in bed and answers questions appropriately Mentation: Patient is alert and oriented 4, Head: Normocephalic atraumatic Eyes: EOMI, pupils reactive to light Neck: Supple, nontender, midline Respiratory: Clear to auscultation bilaterally Cardiovascular: regular rate, no obvious murmurs Gastrointestinal: Not tender to palpation, bowel sounds heard. Neurological: Moves all extremities spontaneously Skin: No new skin lesions, PEG tube placed Assessment and plan C. difficile colitis, resolving -Positive C. difficile, patient has a history of multiple antibiotics due to her multiple stays in many different hospitals -Infectious disease consulted -oral vanco per ID Sepsis -Cultures pending -CT abdomen pelvis noted, no new acute issues -Continue IV antibiotic, broad-spectrum for now Pancreatitis -Mild, pending CT abdomen and pelvis -resolved, starting diet, clear oral and peg tube feeding Persistent nausea, vomiting, diarrhea-resolving -Patient is a long history with these issues, GI consulted -May be secondary to colitis this time , resolving -Scopolamine patch Dysphasia and chronic nausea, -Status post G-tube placement 10 days before admission -resolving -Curiously enough patient states that she has nausea and inability to eat food however can tolerate tube feeds well. Patient only started tube feeds 10 days ago but states that she had nausea issues for many months prior to previous admission. Hypercalcemia -May be lab draw error however patient does have mildly elevated calcium in the past, will initiate NS for now, patient relatively asymptomatic Acute renal insufficiency -Patient does have episodes of KENNY due to her nausea vomiting inability to panchito ate p.o. -Continue IV hydration, as needed Disposition -Continue treatment for C. difficile colitis causing above problems, continue meds -plan is to dc with hhpt when wbc improves and symptoms resolve. LINDA BOYLE May 27, 2019 11:42
[2019-05-27] MEDS: SOD CHLORIDE 0.9% 1,000 ML IV SCH (12:30)
[2019-05-27] MEDS: ACETAMINOPHEN 650MG/20.3ML CUP PO PRN (13:34)
[2019-05-27 15:13] VITALS: BP 153/70; PULSE 96; RESP 20
--- NOTE | 2019-05-27 16:30 | CONS ---
Assessment/Plan Assessment/Plan Hospital Course (Demo Recall) ID PROGRESS NOTE CURRENT ABX: DAY #4.5 =>Vanco LIQ PO s/p Zosyn 24H INTERVAL SUMMARY * GI issues, PEG in place, chronic nausea, hx of multiple admissions w/ABX, now with C.Diff colitis DIAGNOSTIC IMAGING * 05/23/19 CT: IMPRESSION: * 1. Mild hiatal hernia. * 2. Mild hepatic steatosis. * 3. Status post cholecystectomy. * 4. Chronic severe right renal atrophy. No urolithiasis or obstructive uropathy. * 5. Colonic diverticulosis, without diverticulitis. * 6. Gastrostomy tube is in place. * 7. No evidence of bowel obstruction, mass, lymphadenopathy, or acute inflammatory process. MICRO * 05/24/19 STOOL: FECES CULTURE Final Organism 1 COLIFORM QUANTITY NO Organism 2 ELYSSA ALBICANS QUANTITY 2+ * 05/24/19 OVA AND PARASITE EXAM Final OVA AND PARASITE NO OVA AND PARASITE SEEN * 05/22/19 BCX (-) * 05/22/19 (+)C.DIFF PHYSICAL EXAMINATION: GENERAL: VSS, NAD - HEENT: AT, NC, NECK: Supple, CHEST: Rise symmetrical HEART: Pulse RRR ABDOMEN: Soft EXTREMITIES: Warm, dry SKIN: No rash, no diaphoresis ID ASSESSMENT 64 yo F admit with: 1.1. Systemic inflammatory response syndrome. 2. Clostridium difficile colitis. 3. Status post urinary tract infection. 4. Diabetes. 5. Hypertension. 6. Elevated lipase. (-)MRSA Nares ABX ALLERGIES: KNDA INVASIVES: PEG CURRENT ABX: DAY #4.5 => Vanco LIQ PO ID RECOMMENDATIONS/PLAN: 1. Anticipate 10 day course of C.Diff -- if she fails, then she should be treated with a vermin exterminator Vanco PO TAPER / Consultation Date/Type/Reason Admit Date/Time May 22, 2019 at 19:22 Initial Consult Date 05/23/19 Date/Time of Note DATE: 05/27/19 TIME: 16:29 Exam/Review of Systems Exam Vitals Vital Signs Date Temp Pulse Resp B/P (MAP) Pulse Ox O2 O2 Flow FiO2 Time Delivery Rate 05/27/19 99.7 96 20 153/70 98 15:13 (97) 05/26/19 Room Air 19:32 Intake and Output 05/26/19 05/26/19 05/27/19 1515:00 23:00 07:00 IntakeIntake Total 120 ml 1630 ml BalanceBalance 120 ml 1630 ml Results Result Diagram: 05/27/19 0434 05/27/19 0434 Results 24hrs Laboratory Tests Test 05/26/19 17:11 05/26/19 21:55 05/27/19 01:50 05/27/19 04:34 Bedside Glucose 102 100 111 White Blood Count 14.8 H Red Blood Count 3.94 L Hemoglobin 10.1 L Hematocrit 33.6 L Mean Corpuscular 85.3 Volume Mean Corpuscular 25.6 L Hemoglobin Mean Corpuscular 30.1 L Hemoglobin Concent Red Cell 19.9 H Distribution Width Platelet Count 696 H Mean Platelet Volume 10.0 Immature 3.100 H Granulocytes % Neutrophils % 61.1 Lymphocytes % 19.4 Monocytes % 7.0 Eosinophils % 8.8 H Basophils % 0.6 Nucleated Red Blood 0.0 Cells % Immature 0.460 H Granulocytes # Neutrophils # 9.1 H Lymphocytes # 2.9 Monocytes # 1.0 H Eosinophils # 1.3 H Basophils # 0.1 Nucleated Red Blood 0.0 Cells # Sodium Level 140 Potassium Level 4.4 Chloride Level 111 H Carbon Dioxide Level 21 Anion Gap 8 Blood Urea Nitrogen 23 H Creatinine 0.97 Est Glomerular 58 L Filtrat Rate mL/min Glucose Level 107 Calcium Level 12.1 H Phosphorus Level 3.3 Magnesium Level 1.7 Test 05/27/19 05:41 05/27/19 07:47 05/27/19 12:36 Bedside Glucose 119 124 113 Medications Medication Current Medications IV Flush (NS 3 ml) 3 ml PER PROTOCOL IV ; Start 05/22/19 at 21:00 Ondansetron HCl (Zofran Inj) 4 mg Q6H PRN IV NAUSEA/VOMITING Last administered on 05/27/19at 11:15; Admin Dose 4 MG; Start 05/22/19 at 21:00 Albuterol/ Ipratropium (Duoneb) 3 ml Q2H RESP THERAPY PRN HHN SHORTNESS OF BREATH; Start 05/22/19 at 21:00 Insulin Aspart (Novolog Insulin Pen) NOVOLOG *MILD* ALGORI... Q4 SC ; Start 05/23/19 at 01:00 Nystatin (Nystatin Powder) 1 applic BID TOP Last administered on 05/27/19 08:04; Admin Dose 1 APPLIC; Start 05/23/19 at 21:00 Vancomycin HCl (Vancomycin Oral Syringe) 250 mg Q6 PO Last administered on 12:30; Admin Dose 250 MG; Start 05/23/19 at 16:00 Hydralazine HCl (Apresoline) 10 mg Q4H PRN IV sbp >160; Start 05/23/19 at 14:30 Acetaminophen (Tylenol Liquid) 650 mg Q6H PRN PO MILD PAIN(1-3)OR ELEVATED TEMP Last administered on 05/27/19 13:34; Admin Dose 650 MG; Start 05/24/19 at 21:20 Scopolamine (Transderm-Scop) 1 patch Q72H TRANSDERM Last administered on 05/25/19 13:39; Admin Dose 1 PATCH; Start 05/25/19 at 13:00 Famotidine (Pepcid) 20 mg BID PO Last administered on 05/27/19 08:03; Admin Dose 20 MG; Start 05/26/19 at 21:00 Sodium Chloride 1,000 ml @ 70 mls/hr [id number] IV Last administered on 05/27/19 12:30; Admin Dose 70 MLS/HR; Start 05/27/19 at 11:30 EDDI SCHWARTZ NP May 27, 2019 16:30
[2019-05-27] MEDS ORDERED: GLUCOSE GEL 15 GRAM TUBE PO PRN ×2 (18:30)
[2019-05-27] MEDS ORDERED: DEXTROSE 50% 50 ML SYRINGE IV PRN ×2 (18:30)
[2019-05-27] MEDS ORDERED: GLUCOSE GEL 15 GRAM TUBE BUCCAL PRN (18:30)
[2019-05-27] MEDS ORDERED: GLUCAGON 1 MG INJ IM PRN (18:30)
[2019-05-27 20:12] VITALS: BP 122/72; PULSE 89; RESP 17
[2019-05-28] MEDS: VANCOMYCIN HCL 250 MG/5ML POSYG PO SCH ×4 (00:17→17:20)
[2019-05-28] MEDS: INSULIN ASPART [NOVOLOG] 3 ML PEN SC SCH ×6 (00:17→21:00)
[2019-05-28 01:37] VITALS: BP 151/68; PULSE 93; RESP 18
[2019-05-28] MEDS: SOD CHLORIDE 0.9% 1,000 ML IV SCH (04:03)
[2019-05-28] MEDS: FAMOTIDINE 20 MG TAB PO SCH ×2 (08:13→20:41)
[2019-05-28] MEDS: NYSTATIN 30 GM POWDER BTL TOP SCH ×2 (08:14→20:43)
[2019-05-28] MEDS ORDERED: MAGNESIUM SULFATE 2 GM/50 ML 50 ML IVPB ONE (11:00)
--- NOTE | 2019-05-28 11:18 | PN ---
Date/Time of Note Date/Time of Note DATE: 05/28/19 TIME: 11:16 Objective Vitals Vital Signs Date Temp Pulse Resp B/P (MAP) Pulse Ox O2 O2 Flow FiO2 Time Delivery Rate 05/28/19 98.6 93 18 151/68 100 01:37 (95) 05/26/19 Room Air 19:32 Intake and Output 05/27/19 05/27/19 05/28/19 1515:00 23:00 07:00 IntakeIntake Total 1300 ml 2220 ml BalanceBalance 1300 ml 2220 ml Results Result Diagram: 05/28/19 0438 05/28/19 0438 Medications Medications Current Medications IV Flush (NS 3 ml) 3 ml PER PROTOCOL IV ; Start 05/22/19 at 21:00 Ondansetron HCl (Zofran Inj) 4 mg Q6H PRN IV NAUSEA/VOMITING Last administered on 05/27/19at 17:22; Admin Dose 4 MG; Start 05/22/19 at 21:00 Albuterol/ Ipratropium (Duoneb) 3 ml Q2H RESP THERAPY PRN HHN SHORTNESS OF BREATH; Start 05/22/19 at 21:00 Insulin Aspart (Novolog Insulin Pen) NOVOLOG *MILD* ALGORI... Q4 SC ; Start 05/23/19 at 01:00 Nystatin (Nystatin Powder) 1 applic BID TOP Last administered on 05/28/19at 08:14; Admin Dose 1 APPLIC; Start 05/23/19 at 21:00 Vancomycin HCl (Vancomycin Oral Syringe) 250 mg Q6 PO Last administered on 05/28/19at 06:25; Admin Dose 250 MG; Start 05/23/19 at 16:00 Hydralazine HCl (Apresoline) 10 mg Q4H PRN IV sbp >160; Start 05/23/19 at 14:30 Acetaminophen (Tylenol Liquid) 650 mg Q6H PRN PO MILD PAIN(1-3)OR ELEVATED TEMP Last administered on 05/27/19at 13:34; Admin Dose 650 MG; Start 05/24/19 at 21:20 Scopolamine (Transderm-Scop) 1 patch Q72H TRANSDERM Last administered on 05/25/19at 13:39; Admin Dose 1 PATCH; Start 05/25/19 at 13:00 Famotidine (Pepcid) 20 mg BID PO Last administered on 05/28/19at 08:13; Admin Dose 20 MG; Start 05/26/19 at 21:00 Sodium Chloride 1,000 ml @ 70 mls/hr [id number] IV Last administered on 05/28/19at 04:03; Admin Dose 70 MLS/HR; Start 05/27/19 at 11:30 Miscellaneous Information 1 ea NOTE XX ; Start 05/27/19 at 18:30 Glucose (Glutose) 15 gm Q15M PRN PO DECREASED GLUCOSE; Start 05/27/19 at 18:30 Glucose (Glutose) 22.5 gm Q15M PRN PO DECREASED GLUCOSE; Start 05/27/19 at 18:30 Dextrose (D50w Syringe) 25 ml Q15M PRN IV DECREASED GLUCOSE; Start 05/27/19 at 18:30 Dextrose (D50w Syringe) 50 ml Q15M PRN IV DECREASED GLUCOSE; Start 05/27/19 at 18:30 Glucagon (Glucagen) 1 mg Q15M PRN IM DECREASED GLUCOSE; Start 05/27/19 at 18:30 Glucose (Glutose) 15 gm Q15M PRN BUCCAL DECREASED GLUCOSE; Start 05/27/19 at 18:30 Magnesium Sulfate 50 ml @ 25 mls/hr ONCE ONCE IVPB ; Start 05/28/19 at 11:00; Stop 05/28/19 at 12:59 VTE Prophylaxis Risk score (from [facility])>0 risk: 2 SCD applied (from [facility]): Yes Lines/Catheters IV Catheter Type: Krishna in Place: No Assessment/Plan Hospital Course Subjective Patients nausea persists whenever she takes oral vancomycin, but not severe Objective Physical exam General: Patient is laying in bed and answers questions appropriately Mentation: Patient is alert and oriented 4, Head: Normocephalic atraumatic Eyes: EOMI, pupils reactive to light Neck: Supple, nontender, midline Respiratory: Clear to auscultation bilaterally Cardiovascular: regular rate, no obvious murmurs Gastrointestinal: Not tender to palpation, bowel sounds heard. Neurological: Moves all extremities spontaneously Skin: No new skin lesions, PEG tube placed Assessment and plan Hypercalcemia -NS was attempted, patient's calcium still elevated, pending ionized calcium -Nephrology consulted Elevated BUN -Patient's BUN has been trending up, creatinine stable -Nephrology on board, Dr. Jolly consulted C. difficile colitis, resolving -Positive C. difficile, patient has a history of multiple antibiotics due to her multiple stays in many different hospitals -Infectious disease consulted -oral vanco per ID Sepsis -Cultures pending -CT abdomen pelvis noted, no new acute issues -Continue IV antibiotic, broad-spectrum for now Pancreatitis -Mild, pending CT abdomen and pelvis -resolved, starting diet, clear oral and peg tube feeding Persistent nausea, vomiting, diarrhea-resolving -Patient is a long history with these issues, GI consulted -May be secondary to colitis this time , resolving -Scopolamine patch Dysphasia and chronic nausea, -Status post G-tube placement 10 days before admission -resolving -Curiously enough patient states that she has nausea and inability to eat food however can tolerate tube feeds well. Patient only started tube feeds 10 days ago but states that she had nausea issues for many months prior to previous admission Disposition -Continue to monitor white count, continue treatment for C. difficile, nephrology consultation pending -Continue treatment for C. difficile colitis causing above problems, continue meds -plan is to dc with hhpt when wbc improves and symptoms resolve. LINDA BOYLE May 28, 2019 11:18
[2019-05-28] MEDS: SCOPOLAMINE 1.5 MG PATCH TRANSDERM SCH (13:01)
[2019-05-28 14:00] VITALS: BP 144/65; PULSE 89; RESP 18
--- NOTE | 2019-05-28 16:13 | CONS ---
Assessment/Plan Assessment/Plan Hospital Course (Demo Recall) ID PROGRESS NOTE CURRENT ABX: DAY #5.5 =>Vanco LIQ PO s/p Zosyn 24H INTERVAL SUMMARY * CLINICALLY STATUS QUO -- ON VANCO IV FOR C.DIFF * GI issues, PEG in place, chronic nausea, hx of multiple admissions w/ABX, now with C.Diff colitis DIAGNOSTIC IMAGING * 05/23/19 CT: IMPRESSION: * 1. Mild hiatal hernia. * 2. Mild hepatic steatosis. * 3. Status post cholecystectomy. * 4. Chronic severe right renal atrophy. No urolithiasis or obstructive uropathy. * 5. Colonic diverticulosis, without diverticulitis. * 6. Gastrostomy tube is in place. * 7. No evidence of bowel obstruction, mass, lymphadenopathy, or acute inflammatory process. MICRO * 05/24/19 STOOL: FECES CULTURE Final Organism 1 COLIFORM QUANTITY NO Organism 2 ELYSSA ALBICANS QUANTITY 2+ * 05/24/19 OVA AND PARASITE EXAM Final OVA AND PARASITE NO OVA AND PARASITE SEEN * 05/22/19 BCX (-) * 05/22/19 (+)C.DIFF PHYSICAL EXAMINATION: GENERAL: VSS, NAD - HEENT: AT, NC, NECK: Supple, CHEST: Rise symmetrical HEART: Pulse RRR ABDOMEN: Soft EXTREMITIES: Warm, dry SKIN: No rash, no diaphoresis ID ASSESSMENT 64 yo F admit with: 1.1. Systemic inflammatory response syndrome. 2. Clostridium difficile colitis. 3. Status post urinary tract infection. 4. Diabetes. 5. Hypertension. 6. Elevated lipase. (-)MRSA Nares ABX ALLERGIES: KNDA INVASIVES: PEG CURRENT ABX: DAY #5.5 => Vanco LIQ PO ID RECOMMENDATIONS/PLAN: 1. Anticipate 10 day course of C.Diff -- if she fails, then she should be treated with a group home Vanco PO TAPER / Consultation Date/Type/Reason Admit Date/Time May 22, 2019 at 19:22 Initial Consult Date 05/23/19 Date/Time of Note DATE: 05/28/19 TIME: 16:12 Exam/Review of Systems Exam Vitals Vital Signs Date Temp Pulse Resp B/P (MAP) Pulse Ox O2 O2 Flow FiO2 Time Delivery Rate 05/28/19 98.6 89 18 144/65 99 14:00 (91) 7/19/19 Room Air 19:32 Intake and Output 05/27/19 05/27/19 05/28/19 1515:00 23:00 07:00 IntakeIntake Total 1300 ml 2220 ml BalanceBalance 1300 ml 2220 ml Results Result Diagram: 05/28/19 0438 05/28/19 0438 Results 24hrs Laboratory Tests Test 05/27/19 17:26 05/27/19 20:46 05/28/19 00:16 05/28/19 04:38 Bedside Glucose 114 102 109 White Blood Count 15.5 H Red Blood Count 3.55 L Hemoglobin 9.2 L Hematocrit 29.9 L Mean Corpuscular 84.2 Volume Mean Corpuscular 25.9 L Hemoglobin Mean Corpuscular 30.8 L Hemoglobin Concent Red Cell 19.5 H Distribution Width Platelet Count 564 H Mean Platelet Volume 10.0 Immature 2.600 H Granulocytes % Neutrophils % 62.1 Lymphocytes % 17.8 Monocytes % 8.5 Eosinophils % 8.4 H Basophils % 0.6 Nucleated Red Blood 0.1 H Cells % Immature 0.400 H Granulocytes # Neutrophils # 9.6 H Lymphocytes # 2.8 Monocytes # 1.3 H Eosinophils # 1.3 H Basophils # 0.1 Nucleated Red Blood 0.0 Cells # Sodium Level 136 Potassium Level 4.4 Chloride Level 109 Carbon Dioxide Level 21 Anion Gap 6 Blood Urea Nitrogen 27 H Creatinine 0.99 Est Glomerular 56 L Filtrat Rate mL/min Glucose Level 109 Calcium Level 12.3 H Phosphorus Level 3.2 Magnesium Level 1.6 L Test 05/28/19 06:25 05/28/19 08:18 05/28/19 11:32 05/28/19 13:08 Bedside Glucose 111 109 126 Ionized Calcium 1.7 H (Measured) Medications Medication Current Medications IV Flush (NS 3 ml) 3 ml PER PROTOCOL IV ; Start 05/22/19 at 21:00 Ondansetron HCl (Zofran Inj) 4 mg Q6H PRN IV NAUSEA/VOMITING Last administered on 05/27/19at 17:22; Admin Dose 4 MG; Start 05/22/19 at 21:00 Albuterol/ Ipratropium (Duoneb) 3 ml Q2H RESP THERAPY PRN HHN SHORTNESS OF BREATH; Start 05/22/19 at 21:00 Insulin Aspart (Novolog Insulin Pen) NOVOLOG *MILD* ALGORI... Q4 SC ; Start 05/23/19 at 01:00 Nystatin (Nystatin Powder) 1 applic BID TOP Last administered on 05/28/19at 08:14; Admin Dose 1 APPLIC; Start 05/23/19 at 21:00 Vancomycin HCl (Vancomycin Oral Syringe) 250 mg Q6 PO Last administered on 05/28/19at 13:00; Admin Dose 250 MG; Start 05/23/19 at 16:00 Hydralazine HCl (Apresoline) 10 mg Q4H PRN IV sbp >160; Start 05/23/19 at 14:30 Acetaminophen (Tylenol Liquid) 650 mg Q6H PRN PO MILD PAIN(1-3)OR ELEVATED TEMP Last administered on 05/27/19at 13:34; Admin Dose 650 MG; Start 05/24/19 at 21:20 Scopolamine (Transderm-Scop) 1 patch Q72H TRANSDERM Last administered on 05/28/19at 13:01; Admin Dose 1 PATCH; Start 05/25/19 at 13:00 Famotidine (Pepcid) 20 mg BID PO Last administered on 05/28/19at 08:13; Admin Dose 20 MG; Start 05/26/19 at 21:00 Miscellaneous Information 1 ea NOTE XX ; Start 05/27/19 at 18:30 Glucose (Glutose) 15 gm Q15M PRN PO DECREASED GLUCOSE; Start 05/27/19 at 18:30 Glucose (Glutose) 22.5 gm Q15M PRN PO DECREASED GLUCOSE; Start 05/27/19 at 18:30 Dextrose (D50w Syringe) 25 ml Q15M PRN IV DECREASED GLUCOSE; Start 05/27/19 at 18:30 Dextrose (D50w Syringe) 50 ml Q15M PRN IV DECREASED GLUCOSE; Start 05/27/19 at 18:30 Glucagon (Glucagen) 1 mg Q15M PRN IM DECREASED GLUCOSE; Start 05/27/19 at 18:30 Glucose (Glutose) 15 gm Q15M PRN BUCCAL DECREASED GLUCOSE; Start 05/27/19 at 18:30 EDDI SCHWARTZ NP May 28, 2019 16:13
--- NOTE | 2019-05-28 19:17 | CONS ---
Assessment/Plan Assessment/Plan Assessment/Plan (Daily) 1. acute hypercalcemia PTH mediated vs Non PTH medicated,vs due to acute pancreatitis - pf failed foraced diuresis so far 2. acute prerenal azotemia 3. Sepsis of unclear etiology 4. acute pancreatitis 5. h/O HTN 6. H/O HL 7. H/o DM II Plan: S/p IVF NS Cl difficle positive, Change dto PO vancomycin for CL difficle associated diarrhea will order PTH, VitaminD and 1,25 vitamin D for work up of hypercalcemia, SPEP, UPEP Magmesium has been replaced for low Mag Thanks for consultation, i will continue to follow up Consultation Date/Type/Reason Admit Date/Time May 22, 2019 at 19:22 Date of Consultation: May 28, 2019 Type of Consult NEPHROLOGY Reason for Consultation hypercalcemia, Hypomagnesemia Requesting Provider: LINDA BOYLE Date/Time of Note DATE: 05/28/19 TIME: 19:17 Hx of Present Illness 64-year-old female with a history of diabetes, hypertension, depression, moderate gastritis/esophagitis, severe atrophy of right kidney, dysphagia status post G-tube about 2 weeks ago. Patient presents the ER complaining of abdominal pain, nausea/vomiting and diarrhea. Symptoms been going on for about a day or 2. Emesis is described as nonbilious and nonbloody and the diarrhea watery/loose, but nonbloody. Patient was discharged from here about 10 days ago after she was admitted for dysphagia. At that time she was seen by GI and had a work-up with no definitive diagnosis. G-tube was placed at that time. Currently, G-tube appears to be intact and did not see any erythema and also no tenderness around it. When she presented to the ER, she had a temp of 99.5, WBC 21,000. Creatinine 1.36. Lipase 639. pt had a Ca 11 on admisison,Cr 1.36 on admisison which improved to 0.9 Today no H/o NSAID NO h/o kidney cyst renal has been consulted for acute kidney injury and Hypercalcemia pt is already received forced lasix diuresis so far Today Ca 12.3 Constitutional: poor po Eyes: no complaints ENT: no complaints Respiratory: no complaints Cardiovascular: no complaints Gastrointestinal: pain, diarrhea, nausea, vomiting Genitourinary: no complaints Musculoskeletal: no complaints Skin: no complaints Neurologic: no complaints Endocrine: no complaints Lymphatic: no complaints Psychological: no complaints Immunologic: no complaints Past Medical History Medical History: diabetes, high cholesterol, hypertension, other (Depression, arthritis ) Home Meds Reported Medications Amlodipine Besylate* (Norvasc*) 5 Mg Tablet, 5 MG PO DAILY, TAB 05/22/19 Atorvastatin* (Atorvastatin*) 40 Mg Tablet, 40 MG PO QHS, #30 TAB 04/23/19 Escitalopram Oxalate* (Escitalopram Oxalate*) 10 Mg Tablet, 10 MG PO DAILY, #30 TAB 04/23/19 Pantoprazole* (Pantoprazole*) 40 Mg Tablet.dr, 40 MG PO AC BREAKFAST, TAB 04/23/19 Medications Current Medications IV Flush (NS 3 ml) 3 ml PER PROTOCOL IV ; Start 05/22/19 at 21:00 Ondansetron HCl (Zofran Inj) 4 mg Q6H PRN IV NAUSEA/VOMITING Last administered on 05/27/19at 17:22; Admin Dose 4 MG; Start 05/22/19 at 21:00 Albuterol/ Ipratropium (Duoneb) 3 ml Q2H RESP THERAPY PRN HHN SHORTNESS OF BREATH; Start 05/22/19 at 21:00 Insulin Aspart (Novolog Insulin Pen) NOVOLOG *MILD* ALGORI... Q4 SC ; Start 05/23/19 at 01:00 Nystatin (Nystatin Powder) 1 applic BID TOP Last administered on 05/28/19at 08:14; Admin Dose 1 APPLIC; Start 05/23/19 at 21:00 Vancomycin HCl (Vancomycin Oral Syringe) 250 mg Q6 PO Last administered on 05/28/19at 17:20; Admin Dose 250 MG; Start 05/23/19 at 16:00 Hydralazine HCl (Apresoline) 10 mg Q4H PRN IV sbp >160; Start 05/23/19 at 14:30 Acetaminophen (Tylenol Liquid) 650 mg Q6H PRN PO MILD PAIN(1-3)OR ELEVATED TEMP Last administered on 05/27/19at 13:34; Admin Dose 650 MG; Start 05/24/19 at 21:20 Scopolamine (Transderm-Scop) 1 patch Q72H TRANSDERM Last administered on 05/28/19at 13:01; Admin Dose 1 PATCH; Start 05/25/19 at 13:00 Famotidine (Pepcid) 20 mg BID PO Last administered on 05/28/19at 08:13; Admin Dose 20 MG; Start 05/26/19 at 21:00 Miscellaneous Information 1 ea NOTE XX ; Start 05/27/19 at 18:30 Glucose (Glutose) 15 gm Q15M PRN PO DECREASED GLUCOSE; Start 05/27/19 at 18:30 Glucose (Glutose) 22.5 gm Q15M PRN PO DECREASED GLUCOSE; Start 05/27/19 at 18:30 Dextrose (D50w Syringe) 25 ml Q15M PRN IV DECREASED GLUCOSE; Start 05/27/19 at 18:30 Dextrose (D50w Syringe) 50 ml Q15M PRN IV DECREASED GLUCOSE; Start 05/27/19 at 18:30 Glucagon (Glucagen) 1 mg Q15M PRN IM DECREASED GLUCOSE; Start 05/27/19 at 18:30 Glucose (Glutose) 15 gm Q15M PRN BUCCAL DECREASED GLUCOSE; Start 05/27/19 at 18:30 Allergies: Coded Allergies: nitrofurantoin (Unverified Allergy, Unknown, itching and skin rashes, 05/22/19) Past Surgical History Past Surgical Hx: cholecystectomy, endoscopy, other (G tube placement ) Family History Significant Family History: no pertinent family hx Social History Alcohol Use: none Smoking Status: Never smoker Drug Use: none Exam/Review of Systems Exam Vitals Vital Signs Date Temp Pulse Resp B/P (MAP) Pulse Ox O2 O2 Flow FiO2 Time Delivery Rate 05/28/19 98.6 89 18 144/65 99 14:00 (91) 05/26/19 Room Air 19:32 Intake and Output 05/27/19 05/27/19 05/28/19 1515:00 23:00 07:00 IntakeIntake Total 1300 ml 2220 ml BalanceBalance 1300 ml 2220 ml Exam General: Patient is laying in bed and answers questions appropriately Mentation: Patient is alert and oriented 4, Head: Normocephalic atraumatic Eyes: EOMI, pupils reactive to light Neck: Supple, nontender, midline Respiratory: Clear to auscultation bilaterally Cardiovascular: regular rate, no obvious murmurs Gastrointestinal: Mildly tender to palpation, bowel sounds heard. Neurological: Moves all extremities spontaneously Skin: No new skin lesions, PEG tube placed Results Result Diagram: 05/28/19 0438 05/28/19 0438 Results 24hrs Laboratory Tests Test 05/27/19 20:46 05/28/19 00:16 05/28/19 04:38 05/28/19 06:25 Bedside Glucose 102 109 111 White Blood Count 15.5 H Red Blood Count 3.55 L Hemoglobin 9.2 L Hematocrit 29.9 L Mean Corpuscular 84.2 Volume Mean Corpuscular 25.9 L Hemoglobin Mean Corpuscular 30.8 L Hemoglobin Concent Red Cell 19.5 H Distribution Width Platelet Count 564 H Mean Platelet Volume 10.0 Immature 2.600 H Granulocytes % Neutrophils % 62.1 Lymphocytes % 17.8 Monocytes % 8.5 Eosinophils % 8.4 H Basophils % 0.6 Nucleated Red Blood 0.1 H Cells % Immature 0.400 H Granulocytes # Neutrophils # 9.6 H Lymphocytes # 2.8 Monocytes # 1.3 H Eosinophils # 1.3 H Basophils # 0.1 Nucleated Red Blood 0.0 Cells # Sodium Level 136 Potassium Level 4.4 Chloride Level 109 Carbon Dioxide Level 21 Anion Gap 6 Blood Urea Nitrogen 27 H Creatinine 0.99 Est Glomerular 56 L Filtrat Rate mL/min Glucose Level 109 Calcium Level 12.3 H Phosphorus Level 3.2 Magnesium Level 1.6 L Test 05/28/19 08:18 05/28/19 11:32 05/28/19 13:08 05/28/19 17:18 Bedside Glucose 109 126 133 Ionized Calcium 1.7 H (Measured) Medications Medication Current Medications IV Flush (NS 3 ml) 3 ml PER PROTOCOL IV ; Start 05/22/19 at 21:00 Ondansetron HCl (Zofran Inj) 4 mg Q6H PRN IV NAUSEA/VOMITING Last administered on 05/27/19at 17:22; Admin Dose 4 MG; Start 05/22/19 at 21:00 Albuterol/ Ipratropium (Duoneb) 3 ml Q2H RESP THERAPY PRN HHN SHORTNESS OF BREATH; Start 05/22/19 at 21:00 Insulin Aspart (Novolog Insulin Pen) NOVOLOG *MILD* ALGORI... Q4 SC ; Start 05/23/19 at 01:00 Nystatin (Nystatin Powder) 1 applic BID TOP Last administered on 05/28/19at 08:14; Admin Dose 1 APPLIC; Start 05/23/19 at 21:00 Vancomycin HCl (Vancomycin Oral Syringe) 250 mg Q6 PO Last administered on 05/28/19at 17:20; Admin Dose 250 MG; Start 05/23/19 at 16:00 Hydralazine HCl (Apresoline) 10 mg Q4H PRN IV sbp >160; Start 05/23/19 at 14:30 Acetaminophen (Tylenol Liquid) 650 mg Q6H PRN PO MILD PAIN(1-3)OR ELEVATED TEMP Last administered on 05/27/19at 13:34; Admin Dose 650 MG; Start 05/24/19 at 21:20 Scopolamine (Transderm-Scop) 1 patch Q72H TRANSDERM Last administered on 05/28/19at 13:01; Admin Dose 1 PATCH; Start 05/25/19 at 13:00 Famotidine (Pepcid) 20 mg BID PO Last administered on 05/28/19at 08:13; Admin Dose 20 MG; Start 05/26/19 at 21:00 Miscellaneous Information 1 ea NOTE XX ; Start 05/27/19 at 18:30 Glucose (Glutose) 15 gm Q15M PRN PO DECREASED GLUCOSE; Start 05/27/19 at 18:30 Glucose (Glutose) 22.5 gm Q15M PRN PO DECREASED GLUCOSE; Start 05/27/19 at 18:30 Dextrose (D50w Syringe) 25 ml Q15M PRN IV DECREASED GLUCOSE; Start 05/27/19 at 18:30 Dextrose (D50w Syringe) 50 ml Q15M PRN IV DECREASED GLUCOSE; Start 05/27/19 at 18:30 Glucagon (Glucagen) 1 mg Q15M PRN IM DECREASED GLUCOSE; Start 05/27/19 at 18:30 Glucose (Glutose) 15 gm Q15M PRN BUCCAL DECREASED GLUCOSE; Start 05/27/19 at 18:30 URIEL LAWSON MD May 28, 2019 19:17
[2019-05-28 19:58] VITALS: BP 120/65; PULSE 87; RESP 18
[2019-05-28] MEDS: ACETAMINOPHEN 650MG/20.3ML CUP PO PRN (20:43)
[2019-05-29] MEDS: VANCOMYCIN HCL 250 MG/5ML POSYG PO SCH ×5 (00:51→23:38)
[2019-05-29] MEDS: INSULIN ASPART [NOVOLOG] 3 ML PEN SC SCH ×6 (01:00→20:41)
[2019-05-29 02:33] VITALS: BP 142/80; PULSE 86; RESP 18
[2019-05-29 07:52] VITALS: BP 117/66; PULSE 93; RESP 18
[2019-05-29] MEDS: FAMOTIDINE 20 MG TAB PO SCH ×2 (08:23→20:42)
[2019-05-29] MEDS: NYSTATIN 30 GM POWDER BTL TOP SCH ×2 (08:58→20:43)
--- NOTE | 2019-05-29 10:15 | PN ---
Date/Time of Note Date/Time of Note DATE: 05/29/19 TIME: 10:13 Assessment/Plan VTE Prophylaxis Risk score (from Ns)>0 risk: 6 SCD applied (from Ns): Yes Pharmacological prophylaxis: other (scds) Lines/Catheters [facility]ter Type (from [facility]): Peripheral IV Urinary Cath still in place: No Assessment/Plan Hospital Course Summary Assessment and Plan: Assessment: Diarrhea 2/2 to C. Difficile Sepsis- 2/2 to CDIFF- resolving Nausea/vomiting- resolved Elevated lipase- in the setting of KENNY- improving Thrombocytosis, likely reactive- improving Acute renal insufficiency- improving Chronic severe right renal atrophy. Normocytic anemia Diabetes HTN Recent history of PNA and UTI Mild hepatic steatosis. Plan: ABX per ID Continue TF Supportive care Continue to monitor labs Patient seen in collaboration with Dr. Vasquez Subjective: Course reviewed with nursing staff Patient interviewed and examined All labs, imaging and other results reviewed No overnight events. Patient continues to complain of nausea very poor p.o. intake currently receiving nutrition from gastrostomy tube feeding. Encourage deep breathing and coughing while in bed patient difficulty getting out of bed secondary to knee pain physical therapy has been treating patient. With x2 episodes of diarrhea. WBCs are down today stable from yesterday Exam PHYSICAL EXAMINATION: GENERAL: Well developed, obese, alert & oriented x 3, in no acute distress SKIN: No lesions HEAD: Normocephalic, atraumatic, no tenderness. EYES: Pupils equal reactive to light and accommodation, full extraocular movements, sclera clear, non-icteric, no discharge. EARS/NOSE AND THROAT: Ears normal, nose normal, oropharynx normal, oral membranes well hydrated without lesions. NECK: Supple, no masses. CHEST: Inspection within normal limits. CARDIOVASCULAR: Heart: Regular rate and rhythm RESPIRATORY: Lungs clear to auscultation GASTROINTESTINAL AND LIVER: Abdomen: Soft, non tenderness, non-distended, PEG, no hernias, no masses, no rebound tenderness, normoactive bowel sounds. Rectal: Deferred. EXTREMITIES: No cyanosis, clubbing or edema. Result Diagram: 05/29/19 0514 05/29/19 0514 Results 24hrs Laboratory Tests Test 05/28/19 11:32 05/28/19 13:08 05/28/19 17:18 05/28/19 21:17 Ionized Calcium 1.7 H (Measured) Bedside Glucose 126 133 98 Test 7/22/19 00:56 05/29/19 05:14 05/29/19 05:55 05/29/19 08:18 Bedside Glucose 107 128 126 White Blood Count 14.9 H Red Blood Count 3.61 L Hemoglobin 9.4 L Hematocrit 30.2 L Mean Corpuscular 83.7 Volume Mean Corpuscular 26.0 L Hemoglobin Mean Corpuscular 31.1 L Hemoglobin Concent Red Cell 19.6 H Distribution Width Platelet Count 590 H Mean Platelet Volume 9.8 Immature 2.200 H Granulocytes % Neutrophils % 62.2 Lymphocytes % 18.4 Monocytes % 8.4 Eosinophils % 8.2 H Basophils % 0.6 Nucleated Red Blood 0.1 H Cells % Immature 0.330 H Granulocytes # Neutrophils # 9.2 H Lymphocytes # 2.7 Monocytes # 1.3 H Eosinophils # 1.2 H Basophils # 0.1 Nucleated Red Blood 0.0 Cells # Sodium Level 137 Potassium Level 4.6 Chloride Level 107 Carbon Dioxide Level 25 Anion Gap 5 Blood Urea Nitrogen 27 H Creatinine 1.01 H Est Glomerular 55 L Filtrat Rate mL/min Glucose Level 123 Uric Acid 6.4 Calcium Level 12.4 H Phosphorus Level 3.4 Magnesium Level 2.1 Vitamin D < 12.8 L 1,25-Dihydroxy Exam/Review of Systems Exam Vitals Vital Signs Date Temp Pulse Resp B/P (MAP) Pulse Ox O2 O2 Flow FiO2 Time Delivery Rate 05/29/19 98.3 93 18 117/66 98 07:52 (83) 05/28/19 Room Air 19:58 Intake and Output 05/28/19 05/28/19 05/29/19 1515:00 23:00 07:00 IntakeIntake Total 420 ml 1270 ml 120 ml OutputOutput Total 1 ml BalanceBalance 420 ml 1270 ml 119 ml Results Results 24hrs Laboratory Tests Test 05/28/19 11:32 05/28/19 13:08 05/28/19 17:18 05/28/19 21:17 Ionized Calcium 1.7 H (Measured) Bedside Glucose 126 133 98 Test 05/29/19 00:56 05/29/19 05:14 05/29/19 05:55 05/29/19 08:18 Bedside Glucose 107 128 126 White Blood Count 14.9 H Red Blood Count 3.61 L Hemoglobin 9.4 L Hematocrit 30.2 L Mean Corpuscular 83.7 Volume Mean Corpuscular 26.0 L Hemoglobin Mean Corpuscular 31.1 L Hemoglobin Concent Red Cell 19.6 H Distribution Width Platelet Count 590 H Mean Platelet Volume 9.8 Immature 2.200 H Granulocytes % Neutrophils % 62.2 Lymphocytes % 18.4 Monocytes % 8.4 Eosinophils % 8.2 H Basophils % 0.6 Nucleated Red Blood 0.1 H Cells % Immature 0.330 H Granulocytes # Neutrophils # 9.2 H Lymphocytes # 2.7 Monocytes # 1.3 H Eosinophils # 1.2 H Basophils # 0.1 Nucleated Red Blood 0.0 Cells # Sodium Level 137 Potassium Level 4.6 Chloride Level 107 Carbon Dioxide Level 25 Anion Gap 5 Blood Urea Nitrogen 27 H Creatinine 1.01 H Est Glomerular 55 L Filtrat Rate mL/min Glucose Level 123 Uric Acid 6.4 Calcium Level 12.4 H Phosphorus Level 3.4 Magnesium Level 2.1 Vitamin D < 12.8 L 1,25-Dihydroxy Medications Medication Current Medications IV Flush (NS 3 ml) 3 ml PER PROTOCOL IV ; Start 05/22/19 at 21:00 Ondansetron HCl (Zofran Inj) 4 mg Q6H PRN IV NAUSEA/VOMITING Last administered on 05/27/19at 17:22; Admin Dose 4 MG; Start 05/22/19 at 21:00 Albuterol/ Ipratropium (Duoneb) 3 ml Q2H RESP THERAPY PRN HHN SHORTNESS OF BREATH; Start 05/22/19 at 21:00 Insulin Aspart (Novolog Insulin Pen) NOVOLOG *MILD* ALGORI... Q4 SC ; Start 05/23/19 at 01:00 Nystatin (Nystatin Powder) 1 applic BID TOP Last administered on 05/29/19at 08:58; Admin Dose 1 APPLIC; Start 05/23/19 at 21:00 Vancomycin HCl (Vancomycin Oral Syringe) 250 mg Q6 PO Last administered on 05/29/19at 05:43; Admin Dose 250 MG; Start 05/23/19 at 16:00 Hydralazine HCl (Apresoline) 10 mg Q4H PRN IV sbp >160; Start 05/23/19 at 14:30 Acetaminophen (Tylenol Liquid) 650 mg Q6H PRN PO MILD PAIN(1-3)OR ELEVATED TEMP Last administered on 05/28/19at 20:43; Admin Dose 650 MG; Start 05/24/19 at 21:20 Scopolamine (Transderm-Scop) 1 patch Q72H TRANSDERM Last administered on 05/28/19at 13:01; Admin Dose 1 PATCH; Start 05/25/19 at 13:00 Famotidine (Pepcid) 20 mg BID PO Last administered on 05/29/19at 08:23; Admin Dose 20 MG; Start 05/26/19 at 21:00 Miscellaneous Information 1 ea NOTE XX ; Start 05/27/19 at 18:30 Glucose (Glutose) 15 gm Q15M PRN PO DECREASED GLUCOSE; Start 05/27/19 at 18:30 Glucose (Glutose) 22.5 gm Q15M PRN PO DECREASED GLUCOSE; Start 05/27/19 at 18:30 Dextrose (D50w Syringe) 25 ml Q15M PRN IV DECREASED GLUCOSE; Start 05/27/19 at 18:30 Dextrose (D50w Syringe) 50 ml Q15M PRN IV DECREASED GLUCOSE; Start 05/27/19 at 18:30 Glucagon (Glucagen) 1 mg Q15M PRN IM DECREASED GLUCOSE; Start 05/27/19 at 18:30 Glucose (Glutose) 15 gm Q15M PRN BUCCAL DECREASED GLUCOSE; Start 05/27/19 at 18:30 BALTA HENDERSON May 29, 2019 10:15
[2019-05-29] MEDS: ONDANSETRON 4 MG INJ IV PRN (10:33)
--- NOTE | 2019-05-29 10:49 | PN ---
Date/Time of Note Date/Time of Note DATE: 05/29/19 TIME: 10:49 Assessment/Plan VTE Prophylaxis Risk score (from Ns)>0 risk: 6 SCD applied (from Nsg): Yes Pharmacological prophylaxis: LMWH Lines/Catheters IV Catheter Type (from Nrsg): Peripheral IV Urinary Cath still in place: No Assessment/Plan Assessment/Plan 1. Hypercalcemia - workup pending for SPEP/UPEP in setting of elevated Ca levels - may be a component of dehydration as well - Nephrology consultation appreciated. ionized calcium is slightly elevated, 1.7 2. KENNY - most likely prerenal - Nephrology on board 3. C. difficile colitis - still with diarrhea - ID on board and appreciate recommendations. Will continue on PO Vancomycin 4. Sepsis secondary to #3 - remains afebrile and WBC trending down 5. Acute pancreatitis - resolved - continue PEG feeding and PO as tolerated 6. Persistent nausea - GI on board and appreciate recommendation - continue current medications and monitor for improvement 7. 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 Disposition - Awaiting SPEP/UPEP results and monitoring Ca levels and renal function - continue treatment for cdiff and monitor for improvement - give multiple admissions for nausea and diarrhea, will need to make sure these resolve prior to discharge Result Diagram: 05/29/19 0514 05/29/19 0514 Results 24hrs Laboratory Tests Test 05/28/19 11:32 05/28/19 13:08 05/28/19 17:18 05/28/19 21:17 Ionized Calcium 1.7 H (Measured) Bedside Glucose 126 133 98 Test 05/29/19 00:56 05/29/19 05:14 05/29/19 05:55 05/29/19 08:18 Bedside Glucose 107 128 126 White Blood Count 14.9 H Red Blood Count 3.61 L Hemoglobin 9.4 L Hematocrit 30.2 L Mean Corpuscular 83.7 Volume Mean Corpuscular 26.0 L Hemoglobin Mean Corpuscular 31.1 L Hemoglobin Concent Red Cell 19.6 H Distribution Width Platelet Count 590 H Mean Platelet Volume 9.8 Immature 2.200 H Granulocytes % Neutrophils % 62.2 Lymphocytes % 18.4 Monocytes % 8.4 Eosinophils % 8.2 H Basophils % 0.6 Nucleated Red Blood 0.1 H Cells % Immature 0.330 H Granulocytes # Neutrophils # 9.2 H Lymphocytes # 2.7 Monocytes # 1.3 H Eosinophils # 1.2 H Basophils # 0.1 Nucleated Red Blood 0.0 Cells # Sodium Level 137 Potassium Level 4.6 Chloride Level 107 Carbon Dioxide Level 25 Anion Gap 5 Blood Urea Nitrogen 27 H Creatinine 1.01 H Est Glomerular 55 L Filtrat Rate mL/min Glucose Level 123 Uric Acid 6.4 Calcium Level 12.4 H Phosphorus Level 3.4 Magnesium Level 2.1 Vitamin D < 12.8 L 1,25-Dihydroxy Subjective 24 Hr Interval Summary Free Text/Dictation Patient continues with diarrhea and also concerned since still with nausea with PO intake. She is able to tolerate liquids at times. No acute overnight events. Exam/Review of Systems Exam Vitals Vital Signs Date Temp Pulse Resp B/P (MAP) Pulse Ox O2 O2 Flow FiO2 Time Delivery Rate 05/29/19 98.3 93 18 117/66 98 07:52 (83) 05/28/19 Room Air 19:58 Intake and Output 05/28/19 05/28/19 05/29/19 1515:00 23:00 07:00 IntakeIntake Total 420 ml 1270 ml 120 ml OutputOutput Total 1 ml BalanceBalance 420 ml 1270 ml 119 ml Exam General: Patient is laying in bed and answers questions appropriately Neck: Supple, nontender, midline Respiratory: Clear to auscultation bilaterally. no wheezing or rhonchi Cardiovascular: regular rate and rhythm, no obvious murmurs Gastrointestinal: soft, nontender to palpation, PEG in place, bowel sounds heard. Neurological: Moves all extremities spontaneously Results Results 24hrs Laboratory Tests Test 05/28/19 11:32 05/28/19 13:08 05/28/19 17:18 05/28/19 21:17 Ionized Calcium 1.7 H (Measured) Bedside Glucose 126 133 98 Test 05/29/19 00:56 05/29/19 05:14 05/29/19 05:55 05/29/19 08:18 Bedside Glucose 107 128 126 White Blood Count 14.9 H Red Blood Count 3.61 L Hemoglobin 9.4 L Hematocrit 30.2 L Mean Corpuscular 83.7 Volume Mean Corpuscular 26.0 L Hemoglobin Mean Corpuscular 31.1 L Hemoglobin Concent Red Cell 19.6 H Distribution Width Platelet Count 590 H Mean Platelet Volume 9.8 Immature 2.200 H Granulocytes % Neutrophils % 62.2 Lymphocytes % 18.4 Monocytes % 8.4 Eosinophils % 8.2 H Basophils % 0.6 Nucleated Red Blood 0.1 H Cells % Immature 0.330 H Granulocytes # Neutrophils # 9.2 H Lymphocytes # 2.7 Monocytes # 1.3 H Eosinophils # 1.2 H Basophils # 0.1 Nucleated Red Blood 0.0 Cells # Sodium Level 137 Potassium Level 4.6 Chloride Level 107 Carbon Dioxide Level 25 Anion Gap 5 Blood Urea Nitrogen 27 H Creatinine 1.01 H Est Glomerular 55 L Filtrat Rate mL/min Glucose Level 123 Uric Acid 6.4 Calcium Level 12.4 H Phosphorus Level 3.4 Magnesium Level 2.1 Vitamin D < 12.8 L 1,25-Dihydroxy Medications Medication Current Medications IV Flush (NS 3 ml) 3 ml PER PROTOCOL IV ; Start 05/22/19 at 21:00 Ondansetron HCl (Zofran Inj) 4 mg Q6H PRN IV NAUSEA/VOMITING Last administered on 05/29/19at 10:33; Admin Dose 4 MG; Start 05/22/19 at 21:00 Albuterol/ Ipratropium (Duoneb) 3 ml Q2H RESP THERAPY PRN HHN SHORTNESS OF B REATH; Start 05/22/19 at 21:00 Insulin Aspart (Novolog Insulin Pen) NOVOLOG *MILD* ALGORI... Q4 SC ; Start 05/23/19 at 01:00 Nystatin (Nystatin Powder) 1 applic BID TOP Last administered on 05/29/19at 08:58; Admin Dose 1 APPLIC; Start 05/23/19 at 21:00 Vancomycin HCl (Vancomycin Oral Syringe) 250 mg Q6 PO Last administered on 05/29/19at 05:43; Admin Dose 250 MG; Start 05/23/19 at 16:00 Hydralazine HCl (Apresoline) 10 mg Q4H PRN IV sbp >160; Start 05/23/19 at 14:30 Acetaminophen (Tylenol Liquid) 650 mg Q6H PRN PO MILD PAIN(1-3)OR ELEVATED TEMP Last administered on 05/28/19at 20:43; Admin Dose 650 MG; Start 05/24/19 at 21:20 Scopolamine (Transderm-Scop) 1 patch Q72H TRANSDERM Last administered on 05/28/19at 13:01; Admin Dose 1 PATCH; Start 05/25/19 at 13:00 Famotidine (Pepcid) 20 mg BID PO Last administered on 05/29/19at 08:23; Admin Dose 20 MG; Start 05/26/19 at 21:00 Miscellaneous Information 1 ea NOTE XX ; Start 05/27/19 at 18:30 Glucose (Glutose) 15 gm Q15M PRN PO DECREASED GLUCOSE; Start 05/27/19 at 18:30 Glucose (Glutose) 22.5 gm Q15M PRN PO DECREASED GLUCOSE; Start 05/27/19 at 18:30 Dextrose (D50w Syringe) 25 ml Q15M PRN IV DECREASED GLUCOSE; Start 05/27/19 at 18:30 Dextrose (D50w Syringe) 50 ml Q15M PRN IV DECREASED GLUCOSE; Start 05/27/19 at 18:30 Glucagon (Glucagen) 1 mg Q15M PRN IM DECREASED GLUCOSE; Start 05/27/19 at 18:30 Glucose (Glutose) 15 gm Q15M PRN BUCCAL DECREASED GLUCOSE; Start 05/27/19 at 18:30 KAREN GARNER MD May 29, 2019 10:49
--- NOTE | 2019-05-29 11:51 | CONS ---
Date/Time of Note Date/Time of Note DATE: 05/29/19 TIME: 11:50 Consult Date/Type/Reason Admit Date May 22, 2019 at 19:22 Type of Consult Psych Ordering Provider: LINDA BOYLE On a [id number] evaluation, patient is Frisian-speaking, translation done by staff. She reports feeling depressed and anxious but refused this medication. Explained risk and benefits of medication but patient was adamant and states she will be fine when her daughter visits. Objective Patient Appearance: Appropriate dress Voice Loudness: Severely Soft/Quiet Mood and Affect Description: Flat affect Mood or Affect: Cooperative Speech Pattern: Clear Hallucination Type: None Delusion Description: Not Present Assessment/Plan Recommendations Patient refused medication for depression and medication for anxiety CESIA DEL CID NP May 29, 2019 11:51
--- NOTE | 2019-05-29 12:03 | CONS ---
Assessment/Plan Assessment/Plan Assessment/Plan (Daily) 1. acute hypercalcemia PTH mediated vs Non PTH medicated,vs due to acute pancreatitis - pf failed foraced diuresis so far 2. acute prerenal azotemia 3. Sepsis of unclear etiology 4. acute pancreatitis 5. h/O HTN 6. H/O HL 7. H/o DM II Plan: S/p IVF NS Cl difficle positive, Change dto PO vancomycin for CL difficle associated diarrhea BUN/Cr 27/1.01- K normal but Ca still high PTH 6.0, Vitamin D 1,25(OH) level is 12.8, Uric acid 6.8- will follow up Consultation Date/Type/Reason Admit Date/Time May 22, 2019 at 19:22 Initial Consult Date 05/28/19 Type of Consult NEPHROLOGY Requesting Provider: LINDA BOYLE Date/Time of Note DATE: 05/29/19 TIME: 12:03 Exam/Review of Systems Exam Vitals Vital Signs Date Temp Pulse Resp B/P (MAP) Pulse Ox O2 O2 Flow FiO2 Time Delivery Rate 05/29/19 98.3 93 18 117/66 98 07:52 (83) 05/28/19 Room Air 19:58 Intake and Output 05/28/19 05/28/19 05/29/19 1515:00 23:00 07:00 IntakeIntake Total 420 ml 1270 ml 120 ml OutputOutput Total 1 ml BalanceBalance 420 ml 1270 ml 119 ml Exam General: Patient is laying in bed and answers questions appropriately Mentation: Patient is alert and oriented 4, Head: Normocephalic atraumatic Eyes: EOMI, pupils reactive to light Neck: Supple, nontender, midline Respiratory: Clear to auscultation bilaterally Cardiovascular: regular rate, no obvious murmurs Gastrointestinal: Mildly tender to palpation, bowel sounds heard. Neurological: Moves all extremities spontaneously Skin: No new skin lesions, PEG tube placed Results Result Diagram: 05/29/19 0514 05/29/19 0514 Results 24hrs Laboratory Tests Test 05/28/19 13:08 05/28/19 17:18 05/28/19 21:17 05/29/19 00:56 Bedside Glucose 126 133 98 107 Test 05/29/19 05:14 05/29/19 05:55 05/29/19 08:18 White Blood Count 14.9 H Red Blood Count 3.61 L Hemoglobin 9.4 L Hematocrit 30.2 L Mean Corpuscular 83.7 Volume Mean Corpuscular 26.0 L Hemoglobin Mean Corpuscular 31.1 L Hemoglobin Concent Red Cell 19.6 H Distribution Width Platelet Count 590 H Mean Platelet Volume 9.8 Immature 2.200 H Granulocytes % Neutrophils % 62.2 Lymphocytes % 18.4 Monocytes % 8.4 Eosinophils % 8.2 H Basophils % 0.6 Nucleated Red Blood 0.1 H Cells % Immature 0.330 H Granulocytes # Neutrophils # 9.2 H Lymphocytes # 2.7 Monocytes # 1.3 H Eosinophils # 1.2 H Basophils # 0.1 Nucleated Red Blood 0.0 Cells # Sodium Level 137 Potassium Level 4.6 Chloride Level 107 Carbon Dioxide Level 25 Anion Gap 5 Blood Urea Nitrogen 27 H Creatinine 1.01 H Est Glomerular 55 L Filtrat Rate mL/min Glucose Level 123 Uric Acid 6.4 Calcium Level 12.4 H Phosphorus Level 3.4 Magnesium Level 2.1 Vitamin D < 12.8 L 1,25-Dihydroxy Bedside Glucose 128 126 Medications Medication Current Medications IV Flush (NS 3 ml) 3 ml PER PROTOCOL IV ; Start 05/22/19 at 21:00 Ondansetron HCl (Zofran Inj) 4 mg Q6H PRN IV NAUSEA/VOMITING Last administered on 05/29/19at 10:33; Admin Dose 4 MG; Start 05/22/19 at 21:00 Albuterol/ Ipratropium (Duoneb) 3 ml Q2H RESP THERAPY PRN HHN SHORTNESS OF BREATH; Start 05/22/19 at 21:00 Insulin Aspart (Novolog Insulin Pen) NOVOLOG *MILD* ALGORI... Q4 SC ; Start 05/23/19 at 01:00 Nystatin (Nystatin Powder) 1 applic BID TOP Last administered on 05/29/19at 08:58; Admin Dose 1 APPLIC; Start 05/23/19 at 21:00 Vancomycin HCl (Vancomycin Oral Syringe) 250 mg Q6 PO Last administered on 05/29/19at 05:43; Admin Dose 250 MG; Start 05/23/19 at 16:00 Hydralazine HCl (Apresoline) 10 mg Q4H PRN IV sbp >160; Start 05/23/19 at 14:30 Acetaminophen (Tylenol Liquid) 650 mg Q6H PRN PO MILD PAIN(1-3)OR ELEVATED TEMP Last administered on 05/28/19at 20:43; Admin Dose 650 MG; Start 05/24/19 at 21:20 Scopolamine (Transderm-Scop) 1 patch Q72H TRANSDERM Last administered on 05/28/19at 13:01; Admin Dose 1 PATCH; Start 05/25/19 at 13:00 Famotidine (Pepcid) 20 mg BID PO Last administered on 05/29/19at 08:23; Admin Dose 20 MG; Start 05/26/19 at 21:00 Miscellaneous Information 1 ea NOTE XX ; Start 05/27/19 at 18:30 Glucose (Glutose) 15 gm Q15M PRN PO DECREASED GLUCOSE; Start 05/27/19 at 18:30 Glucose (Glutose) 22.5 gm Q15M PRN PO DECREASED GLUCOSE; Start 05/27/19 at 18:30 Dextrose (D50w Syringe) 25 ml Q15M PRN IV DECREASED GLUCOSE; Start 05/27/19 at 18:30 Dextrose (D50w Syringe) 50 ml Q15M PRN IV DECREASED GLUCOSE; Start 05/27/19 at 18:30 Glucagon (Glucagen) 1 mg Q15M PRN IM DECREASED GLUCOSE; Start 05/27/19 at 18:30 Glucose (Glutose) 15 gm Q15M PRN BUCCAL DECREASED GLUCOSE; Start 05/27/19 at 18:30 URIEL LAWSON MD May 29, 2019 12:03
[2019-05-29 13:46] VITALS: BP 127/63; PULSE 98; RESP 18
--- NOTE | 2019-05-29 14:57 | CONS ---
Assessment/Plan Assessment/Plan Hospital Course (Demo Recall) SUBJECTIVE: Patient is alert, looks comfortable, still with loose stools, no fevers ANTIMICROBIALS: Oral vancomycin. INDWELLINGS: PEG. PHYSICAL EXAMINATION: GENERAL: This is a chronically ill-appearing, elderly woman who is awake, in no distress. HEENT: Head atraumatic, normocephalic. NECK: Supple. CHEST: Rise symmetrical. Breath sounds clear, diminished to bases. HEART: S1, S2. ABDOMEN: Soft, bowel sounds present. ASSESSMENT: 1. Systemic inflammatory response syndrome. 2. Clostridium difficile colitis. 3. Status post urinary tract infection. 4. Diabetes. 5. Hypertension. 6. Elevated lipase. PLAN: Remains stable. Continue oral vancomycin. Consultation Date/Type/Reason Admit Date/Time May 22, 2019 at 19:22 Initial Consult Date 05/23/19 Type of Consult id Requesting Provider: LINDA BOYLE Date/Time of Note DATE: 05/29/19 TIME: 14:55 Exam/Review of Systems Exam Vitals Vital Signs Date Temp Pulse Resp B/P (MAP) Pulse Ox O2 O2 Flow FiO2 Time Delivery Rate 05/29/19 98.8 98 18 127/63 99 13:46 (84) 05/28/19 Room Air 19:58 Intake and Output 05/28/19 05/28/19 05/29/19 1414:59 22:59 06:59 IntakeIntake Total 420 ml 1270 ml 120 ml OutputOutput Total 1 ml BalanceBalance 420 ml 1270 ml 119 ml Results Result Diagram: 05/29/19 0514 05/29/19 0514 Results 24hrs Laboratory Tests Test 05/28/19 17:18 05/28/19 21:17 05/29/19 00:56 05/29/19 05:14 Bedside Glucose 133 98 107 White Blood Count 14.9 H Red Blood Count 3.61 L Hemoglobin 9.4 L Hematocrit 30.2 L Mean Corpuscular 83.7 Volume Mean Corpuscular 26.0 L Hemoglobin Mean Corpuscular 31.1 L Hemoglobin Concent Red Cell 19.6 H Distribution Width Platelet Count 590 H Mean Platelet Volume 9.8 Immature 2.200 H Granulocytes % Neutrophils % 62.2 Lymphocytes % 18.4 Monocytes % 8.4 Eosinophils % 8.2 H Basophils % 0.6 Nucleated Red Blood 0.1 H Cells % Immature 0.330 H Granulocytes # Neutrophils # 9.2 H Lymphocytes # 2.7 Monocytes # 1.3 H Eosinophils # 1.2 H Basophils # 0.1 Nucleated Red Blood 0.0 Cells # Sodium Level 137 Potassium Level 4.6 Chloride Level 107 Carbon Dioxide Level 25 Anion Gap 5 Blood Urea Nitrogen 27 H Creatinine 1.01 H Est Glomerular 55 L Filtrat Rate mL/min Glucose Level 123 Uric Acid 6.4 Calcium Level 12.4 H Phosphorus Level 3.4 Magnesium Level 2.1 Vitamin D < 12.8 L 1,25-Dihydroxy Parathyroid Hormone 6.0 L Test 05/29/19 05:55 05/29/19 08:18 05/29/19 12:31 Bedside Glucose 128 126 139 Medications Medication Current Medications IV Flush (NS 3 ml) 3 ml PER PROTOCOL IV ; Start 05/22/19 at 21:00 Ondansetron HCl (Zofran Inj) 4 mg Q6H PRN IV NAUSEA/VOMITING Last administered on 05/29/19at 10:33; Admin Dose 4 MG; Start 05/22/19 at 21:00 Albuterol/ Ipratropium (Duoneb) 3 ml Q2H RESP THERAPY PRN HHN SHORTNESS OF BREATH; Start 05/22/19 at 21:00 Insulin Aspart (Novolog Insulin Pen) NOVOLOG *MILD* ALGORI... Q4 SC ; Start 05/23/19 at 01:00 Nystatin (Nystatin Powder) 1 applic BID TOP Last administered on 05/29/19at 08:58; Admin Dose 1 APPLIC; Start 05/23/19 at 21:00 Vancomycin HCl (Vancomycin Oral Syringe) 250 mg Q6 PO Last administered on 05/29/19at 12:34; Admin Dose 250 MG; Start 05/23/19 at 16:00 Hydralazine HCl (Apresoline) 10 mg Q4H PRN IV sbp >160; Start 05/23/19 at 14:30 Acetaminophen (Tylenol Liquid) 650 mg Q6H PRN PO MILD PAIN(1-3)OR ELEVATED TEMP Last administered on 05/28/19at 20:43; Admin Dose 650 MG; Start 05/24/19 at 21:20 Scopolamine (Transderm-Scop) 1 patch Q72H TRANSDERM Last administered on 05/28/19at 13:01; Admin Dose 1 PATCH; Start 05/25/19 at 13:00 Famotidine (Pepcid) 20 mg BID PO Last administered on 05/29/19at 08:23; Admin Dose 20 MG; Start 05/26/19 at 21:00 Miscellaneous Information 1 ea NOTE XX ; Start 05/27/19 at 18:30 Glucose (Glutose) 15 gm Q15M PRN PO DECREASED GLUCOSE; Start 05/27/19 at 18:30 Glucose (Glutose) 22.5 gm Q15M PRN PO DECREASED GLUCOSE; Start 05/27/19 at 18:30 Dextrose (D50w Syringe) 25 ml Q15M PRN IV DECREASED GLUCOSE; Start 05/27/19 at 18:30 Dextrose (D50w Syringe) 50 ml Q15M PRN IV DECREASED GLUCOSE; Start 05/27/19 at 18:30 Glucagon (Glucagen) 1 mg Q15M PRN IM DECREASED GLUCOSE; Start 05/27/19 at 18:30 Glucose (Glutose) 15 gm Q15M PRN BUCCAL DECREASED GLUCOSE; Start 05/27/19 at 18:30 ANA MARIA ZULETA NP May 29, 2019 14:57
[2019-05-29 20:00] VITALS: BP 133/74; PULSE 94; RESP 17
[2019-05-30] MEDS ORDERED: INSULIN ASPART [NOVOLOG] 3 ML PEN SC SCH
[2019-05-30 02:00] VITALS: BP 121/65; PULSE 93; RESP 19
[2019-05-30] MEDS: INSULIN ASPART [NOVOLOG] 3 ML PEN SC SCH ×4 (03:00→17:07)
[2019-05-30] MEDS: VANCOMYCIN HCL 250 MG/5ML POSYG PO SCH ×3 (05:58→17:07)
[2019-05-30 07:35] VITALS: BP 133/80; PULSE 92; RESP 18
[2019-05-30] MEDS: NYSTATIN 30 GM POWDER BTL TOP SCH ×2 (08:30→20:44)
[2019-05-30] MEDS: FAMOTIDINE 20 MG TAB PO SCH ×2 (08:30→20:44)
--- NOTE | 2019-05-30 09:45 | CONS ---
Assessment/Plan Assessment/Plan Assessment/Plan (Daily) 1. acute hypercalcemia PTH mediated vs Non PTH medicated,vs due to acute pancreatitis - pf failed foraced diuresis so far 2. acute prerenal azotemia 3. Sepsis of unclear etiology 4. acute pancreatitis 5. h/O HTN 6. H/O HL 7. H/o DM II Plan: Cl difficle positive, Change dto PO vancomycin for CL difficle associated diarrhea BUN/Cr 31/1.07,Na 134 - K normal but Ca still high PTH 6.0, Vitamin D 1,25(OH) level is 12.8, Uric acid 6.8- will follow up Consultation Date/Type/Reason Admit Date/Time May 22, 2019 at 19:22 Initial Consult Date 05/28/19 Type of Consult NEPHROLOGY Requesting Provider: LINDA BOYLE Date/Time of Note DATE: 05/30/19 TIME: 09:44 Exam/Review of Systems Exam Vitals Vital Signs Date Temp Pulse Resp B/P (MAP) Pulse Ox O2 O2 Flow FiO2 Time Delivery Rate 05/30/19 98.4 92 18 133/80 98 07:35 (97) 05/28/19 Room Air 19:58 Intake and Output 05/29/19 05/29/19 05/30/19 1515:00 23:00 07:00 IntakeIntake Total 1000 ml BalanceBalance 1000 ml Exam General: Patient is laying in bed and answers questions appropriately Mentation: Patient is alert and oriented 4, Head: Normocephalic atraumatic Eyes: EOMI, pupils reactive to light Neck: Supple, nontender, midline Respiratory: Clear to auscultation bilaterally Cardiovascular: regular rate, no obvious murmurs Gastrointestinal: Mildly tender to palpation, bowel sounds heard. Neurological: Moves all extremities spontaneously Skin: No new skin lesions, PEG tube placed Results Result Diagram: 05/30/19 0424 05/30/19 0424 Results 24hrs Laboratory Tests Test 05/29/19 12:31 05/29/19 17:19 05/29/19 20:39 05/30/19 03:17 Bedside Glucose 139 130 113 118 Test 05/30/19 04:24 05/30/19 08:28 White Blood Count 15.9 H Red Blood Count 3.54 L Hemoglobin 9.2 L Hematocrit 30.4 L Mean Corpuscular 85.9 Volume Mean Corpuscular 26.0 L Hemoglobin Mean Corpuscular 30.3 L Hemoglobin Concent Red Cell 20.1 H Distribution Width Platelet Count 558 H Mean Platelet Volume 10.4 Immature 1.700 H Granulocytes % Neutrophils % 63.9 Lymphocytes % 17.6 Monocytes % 9.2 Eosinophils % 7.2 H Basophils % 0.4 Nucleated Red Blood 0.0 Cells % Immature 0.270 H Granulocytes # Neutrophils # 10.2 H Lymphocytes # 2.8 Monocytes # 1.5 H Eosinophils # 1.1 H Basophils # 0.1 Nucleated Red Blood 0.0 Cells # Sodium Level 134 L Potassium Level 4.4 Chloride Level 103 Carbon Dioxide Level 23 Anion Gap 8 Blood Urea Nitrogen 31 H Creatinine 1.07 H Glucose Level 115 Calcium Level 12.4 H Phosphorus Level 3.8 Magnesium Level 1.8 Albumin 2.9 L Bedside Glucose 121 Medications Medication Current Medications IV Flush (NS 3 ml) 3 ml PER PROTOCOL IV ; Start 05/22/19 at 21:00 Ondansetron HCl (Zofran Inj) 4 mg Q6H PRN IV NAUSEA/VOMITING Last administered on 05/29/19 10:33; Admin Dose 4 MG; Start 05/22/19 at 21:00 Albuterol/ Ipratropium (Duoneb) 3 ml Q2H RESP THERAPY PRN HHN SHORTNESS OF BREATH; Start 05/22/19 at 21:00 Nystatin (Nystatin Powder) 1 applic BID TOP Last administered on 05/30/19 08:30; Admin Dose 1 APPLIC; Start 05/23/19 at 21:00 Vancomycin HCl (Vancomycin Oral Syringe) 250 mg Q6 PO Last administered on 05:58; Admin Dose 250 MG; Start 05/23/19 at 16:00 Hydralazine HCl (Apresoline) 10 mg Q4H PRN IV sbp >160; Start 05/23/19 at 14:30 Acetaminophen (Tylenol Liquid) 650 mg Q6H PRN PO MILD PAIN(1-3)OR ELEVATED TEMP Last administered on 05/28/19 20:43; Admin Dose 650 MG; Start 05/24/19 at 21:20 Scopolamine (Transderm-Scop) 1 patch Q72H TRANSDERM Last administered on 05/28/19 13:01; Admin Dose 1 PATCH; Start 05/25/19 at 13:00 Famotidine (Pepcid) 20 mg BID PO Last administered on 05/30/19at 08:30; Admin Dose 20 MG; Start 05/26/19 at 21:00 Miscellaneous Information 1 ea NOTE XX ; Start 05/27/19 at 18:30 Glucose (Glutose) 15 gm Q15M PRN PO DECREASED GLUCOSE; Start 05/27/19 at 18:30 Glucose (Glutose) 22.5 gm Q15M PRN PO DECREASED GLUCOSE; Start 05/27/19 at 18:30 Dextrose (D50w Syringe) 25 ml Q15M PRN IV DECREASED GLUCOSE; Start 05/27/19 at 18:30 Dextrose (D50w Syringe) 50 ml Q15M PRN IV DECREASED GLUCOSE; Start 05/27/19 at 18:30 Glucagon (Glucagen) 1 mg Q15M PRN IM DECREASED GLUCOSE; Start 05/27/19 at 18:30 Glucose (Glutose) 15 gm Q15M PRN BUCCAL DECREASED GLUCOSE; Start 05/27/19 at 18:30 Insulin Aspart (Novolog Insulin Pen) NOVOLOG *MILD* ALGORI... Q6 SC ; Start 05/30/19 at 03:00 URIEL LAWSON MD May 30, 2019 09:44
--- NOTE | 2019-05-30 10:05 | PN ---
Date/Time of Note Date/Time of Note DATE: 05/30/19 TIME: 10:04 Assessment/Plan VTE Prophylaxis Risk score (from Ns)>0 risk: 5 SCD applied (from Ns): Yes Pharmacological prophylaxis: other (scds) Lines/Catheters [facility] Saline Lock Urinary Cath still in place: No Assessment/Plan Hospital Course Summary Assessment and Plan: Assessment: Diarrhea 2/2 to C. Difficile Sepsis- 2/2 to CDIFF- resolving Nausea/vomiting Elevated lipase- in the setting of KENNY- improving Thrombocytosis, likely reactive- improving Acute renal insufficiency- improving Chronic severe right renal atrophy. Normocytic anemia Diabetes HTN Recent history of PNA and UTI Mild hepatic steatosis. Hypercalcemia Plan: ABX per ID Continue TF Anti-emetic medication as needed Patient seen in collaboration with Dr. Vasquez Subjective: Course reviewed with nursing staff Patient interviewed and examined All labs, imaging and other results reviewed Hypercalcemia being worked-up by hospitalist Exam PHYSICAL EXAMINATION: GENERAL: Well developed, obese, alert & oriented x 3, in no acute distress SKIN: No lesions HEAD: Normocephalic, atraumatic, no tenderness. EYES: Pupils equal reactive to light and accommodation, full extraocular movements, sclera clear, non-icteric, no discharge. EARS/NOSE AND THROAT: Ears normal, nose normal, oropharynx normal, oral membr anes well hydrated without lesions. NECK: Supple, no masses. CHEST: Inspection within normal limits. CARDIOVASCULAR: Heart: Regular rate and rhythm RESPIRATORY: Lungs clear to auscultation GASTROINTESTINAL AND LIVER: Abdomen: Soft, non tenderness, non-distended, PEG, no hernias, no masses, no rebound tenderness, normoactive bowel sounds. Rectal: Deferred. EXTREMITIES: No cyanosis, clubbing or edema. Result Diagram: 05/30/19 0424 05/30/19 0424 Results 24hrs Laboratory Tests Test 05/29/19 12:31 05/29/19 17:19 05/29/19 20:39 05/30/19 03:17 Bedside Glucose 139 130 113 118 Test 05/30/19 04:24 05/30/19 08:28 White Blood Count 15.9 H Red Blood Count 3.54 L Hemoglobin 9.2 L Hematocrit 30.4 L Mean Corpuscular 85.9 Volume Mean Corpuscular 26.0 L Hemoglobin Mean Corpuscular 30.3 L Hemoglobin Concent Red Cell 20.1 H Distribution Width Platelet Count 558 H Mean Platelet Volume 10.4 Immature 1.700 H Granulocytes % Neutrophils % 63.9 Lymphocytes % 17.6 Monocytes % 9.2 Eosinophils % 7.2 H Basophils % 0.4 Nucleated Red Blood 0.0 Cells % Immature 0.270 H Granulocytes # Neutrophils # 10.2 H Lymphocytes # 2.8 Monocytes # 1.5 H Eosinophils # 1.1 H Basophils # 0.1 Nucleated Red Blood 0.0 Cells # Sodium Level 134 L Potassium Level 4.4 Chloride Level 103 Carbon Dioxide Level 23 Anion Gap 8 Blood Urea Nitrogen 31 H Creatinine 1.07 H Glucose Level 115 Calcium Level 12.4 H Phosphorus Level 3.8 Magnesium Level 1.8 Albumin 2.9 L Bedside Glucose 121 Exam/Review of Systems Exam Vitals Vital Signs Date Temp Pulse Resp B/P (MAP) Pulse Ox O2 O2 Flow FiO2 Time Delivery Rate 05/30/19 98.4 92 18 133/80 98 07:35 (97) 05/28/19 Room Air 19:58 Intake and Output 05/29/19 05/29/19 05/30/19 1515:00 23:00 07:00 IntakeIntake Total 1000 ml BalanceBalance 1000 ml Results Results 24hrs Laboratory Tests Test 05/29/19 12:31 05/29/19 17:19 05/29/19 20:39 05/30/19 03:17 Bedside Glucose 139 130 113 118 Test 05/30/19 04:24 05/30/19 08:28 White Blood Count 15.9 H Red Blood Count 3.54 L Hemoglobin 9.2 L Hematocrit 30.4 L Mean Corpuscular 85.9 Volume Mean Corpuscular 26.0 L Hemoglobin Mean Corpuscular 30.3 L Hemoglobin Concent Red Cell 20.1 H Distribution Width Platelet Count 558 H Mean Platelet Volume 10.4 Immature 1.700 H Granulocytes % Neutrophils % 63.9 Lymphocytes % 17.6 Monocytes % 9.2 Eosinophils % 7.2 H Basophils % 0.4 Nucleated Red Blood 0.0 Cells % Immature 0.270 H Granulocytes # Neutrophils # 10.2 H Lymphocytes # 2.8 Monocytes # 1.5 H Eosinophils # 1.1 H Basophils # 0.1 Nucleated Red Blood 0.0 Cells # Sodium Level 134 L Potassium Level 4.4 Chloride Level 103 Carbon Dioxide Level 23 Anion Gap 8 Blood Urea Nitrogen 31 H Creatinine 1.07 H Glucose Level 115 Calcium Level 12.4 H Phosphorus Level 3.8 Magnesium Level 1.8 Albumin 2.9 L Bedside Glucose 121 Medications Medication Current Medications IV Flush (NS 3 ml) 3 ml PER PROTOCOL IV ; Start 05/22/19 at 21:00 Ondansetron HCl (Zofran Inj) 4 mg Q6H PRN IV NAUSEA/VOMITING Last administered on 05/29/19at 10:33; Admin Dose 4 MG; Start 05/22/19 at 21:00 Albuterol/ Ipratropium (Duoneb) 3 ml Q2H RESP THERAPY PRN HHN SHORTNESS OF BREATH; Start 05/22/19 at 21:00 Nystatin (Nystatin Powder) 1 applic BID TOP Last administered on 05/30/19at 08:30; Admin Dose 1 APPLIC; Start 05/23/19 at 21:00 Vancomycin HCl (Vancomycin Oral Syringe) 250 mg Q6 PO Last administered on 05/30/19at 05:58; Admin Dose 250 MG; Start 05/23/19 at 16:00 Hydralazine HCl (Apresoline) 10 mg Q4H PRN IV sbp >160; Start 05/23/19 at 14:30 Acetaminophen (Tylenol Liquid) 650 mg Q6H PRN PO MILD PAIN(1-3)OR ELEVATED TEMP Last administered on 05/28/19at 20:43; Admin Dose 650 MG; Start 05/24/19 at 21:20 Scopolamine (Transderm-Scop) 1 patch Q72H TRANSDERM Last administered on 05/28/19at 13:01; Admin Dose 1 PATCH; Start 05/25/19 at 13:00 Famotidine (Pepcid) 20 mg BID PO Last administered on 05/30/19at 08:30; Admin Dose 20 MG; Start 05/26/19 at 21:00 Miscellaneous Information 1 ea NOTE XX ; Start 05/27/19 at 18:30 Glucose (Glutose) 15 gm Q15M PRN PO DECREASED GLUCOSE; Start 05/27/19 at 18:30 Glucose (Glutose) 22.5 gm Q15M PRN PO DECREASED GLUCOSE; Start 05/27/19 at 18:30 Dextrose (D50w Syringe) 25 ml Q15M PRN IV DECREASED GLUCOSE; Start 05/27/19 at 18:30 Dextrose (D50w Syringe) 50 ml Q15M PRN IV DECREASED GLUCOSE; Start 05/27/19 at 18:30 Glucagon (Glucagen) 1 mg Q15M PRN IM DECREASED GLUCOSE; Start 05/27/19 at 18:30 Glucose (Glutose) 15 gm Q15M PRN BUCCAL DECREASED GLUCOSE; Start 05/27/19 at 18:30 Insulin Aspart (Novolog Insulin Pen) NOVOLOG *MILD* ALGORI... Q6 SC ; Start at 03:00 BALTA HENDERSON May 30, 2019 10:05
--- NOTE | 2019-05-30 13:10 | CONS ---
Assessment/Plan Assessment/Plan Hospital Course (Demo Recall) SUBJECTIVE: Patient is alert, looks comfortable, stools are getting formed, no fevers ANTIMICROBIALS: Oral vancomycin. INDWELLINGS: PEG. PHYSICAL EXAMINATION: GENERAL: This is a chronically ill-appearing, elderly woman who is awake, in no distress. HEENT: Head atraumatic, normocephalic. NECK: Supple. CHEST: Rise symmetrical. Breath sounds clear, diminished to bases. HEART: S1, S2. ABDOMEN: Soft, bowel sounds present. ASSESSMENT: 1. Systemic inflammatory response syndrome. 2. Clostridium difficile colitis. 3. Status post urinary tract infection. 4. Diabetes. 5. Hypertension. 6. Elevated lipase. PLAN: Remains stable. Stools are getting formed. Continue oral vancomycin. Consultation Date/Type/Reason Admit Date/Time May 22, 2019 at 19:22 Initial Consult Date 05/23/19 Type of Consult id Requesting Provider: LINDA BOYLE Date/Time of Note DATE: 05/30/19 TIME: 13:10 Exam/Review of Systems Exam Vitals Vital Signs Date Temp Pulse Resp B/P (MAP) Pulse Ox O2 O2 Flow FiO2 Time Delivery Rate 05/30/19 98.4 92 18 133/80 98 07:35 (97) 05/28/19 Room Air 19:58 Intake and Output 05/29/19 05/29/19 05/30/19 1515:00 23:00 07:00 IntakeIntake Total 1000 ml BalanceBalance 1000 ml Results Result Diagram: 05/30/19 0424 05/30/19 0424 Results 24hrs Laboratory Tests Test 05/29/19 17:19 05/29/19 20:39 05/30/19 03:17 05/30/19 04:24 Bedside Glucose 130 113 118 White Blood Count 15.9 H Red Blood Count 3.54 L Hemoglobin 9.2 L Hematocrit 30.4 L Mean Corpuscular 85.9 Volume Mean Corpuscular 26.0 L Hemoglobin Mean Corpuscular 30.3 L Hemoglobin Concent Red Cell 20.1 H Distribution Width Platelet Count 558 H Mean Platelet Volume 10.4 Immature 1.700 H Granulocytes % Neutrophils % 63.9 Lymphocytes % 17.6 Monocytes % 9.2 Eosinophils % 7.2 H Basophils % 0.4 Nucleated Red Blood 0.0 Cells % Immature 0.270 H Granulocytes # Neutrophils # 10.2 H Lymphocytes # 2.8 Monocytes # 1.5 H Eosinophils # 1.1 H Basophils # 0.1 Nucleated Red Blood 0.0 Cells # Sodium Level 134 L Potassium Level 4.4 Chloride Level 103 Carbon Dioxide Level 23 Anion Gap 8 Blood Urea Nitrogen 31 H Creatinine 1.07 H Glucose Level 115 Calcium Level 12.4 H Phosphorus Level 3.8 Magnesium Level 1.8 Albumin 2.9 L Test 05/30/19 08:28 05/30/19 12:20 Bedside Glucose 121 119 Medications Medication Current Medications IV Flush (NS 3 ml) 3 ml PER PROTOCOL IV ; Start 05/22/19 at 21:00 Ondansetron HCl (Zofran Inj) 4 mg Q6H PRN IV NAUSEA/VOMITING Last administered on 05/29/19at 10:33; Admin Dose 4 MG; Start 05/22/19 at 21:00 Albuterol/ Ipratropium (Duoneb) 3 ml Q2H RESP THERAPY PRN HHN SHORTNESS OF BREATH; Start 05/22/19 at 21:00 Nystatin (Nystatin Powder) 1 applic BID TOP Last administered on 05/30/19at 08:30; Admin Dose 1 APPLIC; Start 05/23/19 at 21:00 Vancomycin HCl (Vancomycin Oral Syringe) 250 mg Q6 PO Last administered on 05/30/19 12:18; Admin Dose 250 MG; Start 05/23/19 at 16:00 Hydralazine HCl (Apresoline) 10 mg Q4H PRN IV sbp >160; Start 05/23/19 at 14:30 Acetaminophen (Tylenol Liquid) 650 mg Q6H PRN PO MILD PAIN(1-3)OR ELEVATED TEMP Last administered on 05/28/19at 20:43; Admin Dose 650 MG; Start 05/24/19 at 21:20 Scopolamine (Transderm-Scop) 1 patch Q72H TRANSDERM Last administered on 05/28/19 13:01; Admin Dose 1 PATCH; Start 05/25/19 at 13:00 Famotidine (Pepcid) 20 mg BID PO Last administered on 05/30/19 08:30; Admin Dose 20 MG; Start 05/26/19 at 21:00 Miscellaneous Information 1 ea NOTE XX ; Start 05/27/19 at 18:30 Glucose (Glutose) 15 gm Q15M PRN PO DECREASED GLUCOSE; Start 05/27/19 at 18:30 Glucose (Glutose) 22.5 gm Q15M PRN PO DECREASED GLUCOSE; Start 05/27/19 at 18:3 0 Dextrose (D50w Syringe) 25 ml Q15M PRN IV DECREASED GLUCOSE; Start 05/27/19 at 18:30 Dextrose (D50w Syringe) 50 ml Q15M PRN IV DECREASED GLUCOSE; Start 05/27/19 at 18:30 Glucagon (Glucagen) 1 mg Q15M PRN IM DECREASED GLUCOSE; Start 05/27/19 at 18:30 Glucose (Glutose) 15 gm Q15M PRN BUCCAL DECREASED GLUCOSE; Start 05/27/19 at 18:30 Insulin Aspart (Novolog Insulin Pen) NOVOLOG *MILD* ALGORI... Q6 SC ; Start 05/30/19 at 03:00 ANA MARIA ZULETA NP May 30, 2019 13:10
[2019-05-30 13:49] VITALS: BP 141/65; PULSE 92; RESP 16
--- NOTE | 2019-05-30 14:53 | PN ---
Date/Time of Note Date/Time of Note DATE: 05/30/19 TIME: 14:25 Assessment/Plan VTE Prophylaxis Risk score (from Ns)>0 risk: 5 SCD applied (from Ns): Yes Pharmacological prophylaxis: other Lines/Catheters IV Catheter Type (from Nrsg): Saline Lock Urinary Cath still in place: No Assessment/Plan Assessment/Plan 1. Hypercalcemia - workup pending for SPEP/UPEP in setting of elevated Ca levels - may be a component of dehydration as well - Nephrology consultation appreciated. ionized calcium is slightly elevated, 1.7 2. KENNY - most likely prerenal - Nephrology on board 3. C. difficile colitis - still with diarrhea - ID on board and appreciate recommendations. Will continue on PO Vancomycin 4. Sepsis secondary to #3 - remains afebrile and WBC trending down 5. Acute pancreatitis - resolving - continue PEG feeding and PO as tolerated 6. Persistent nausea - GI on board and appreciate recommendation - continue current medications and monitor for improvement 7. Dysphasia and chronic nausea, - Status post G-tube placement - may be a psychiatric component and evaluated by psychiatry [employer] but refusing any medications 8. Disposition - Awaiting SPEP/UPEP results and monitoring Ca levels - give multiple admissions for nausea and diarrhea, will need to make sure these resolve prior to discharge Result Diagram: 05/30/19 0424 05/30/19 0424 Results 24hrs Laboratory Tests Test 05/29/19 17:19 05/29/19 20:39 05/30/19 03:17 05/30/19 04:24 Bedside Glucose 130 113 118 White Blood Count 15.9 H Red Blood Count 3.54 L Hemoglobin 9.2 L Hematocrit 30.4 L Mean Corpuscular 85.9 Volume Mean Corpuscular 26.0 L Hemoglobin Mean Corpuscular 30.3 L Hemoglobin Concent Red Cell 20.1 H Distribution Width Platelet Count 558 H Mean Platelet Volume 10.4 Immature 1.700 H Granulocytes % Neutrophils % 63.9 Lymphocytes % 17.6 Monocytes % 9.2 Eosinophils % 7.2 H Basophils % 0.4 Nucleated Red Blood 0.0 Cells % Immature 0.270 H Granulocytes # Neutrophils # 10.2 H Lymphocytes # 2.8 Monocytes # 1.5 H Eosinophils # 1.1 H Basophils # 0.1 Nucleated Red Blood 0.0 Cells # Sodium Level 134 L Potassium Level 4.4 Chloride Level 103 Carbon Dioxide Level 23 Anion Gap 8 Blood Urea Nitrogen 31 H Creatinine 1.07 H Glucose Level 115 Calcium Level 12.4 H Phosphorus Level 3.8 Magnesium Level 1.8 Albumin 2.9 L Test 05/30/19 08:28 05/30/19 12:20 Bedside Glucose 121 119 Subjective 24 Hr Interval Summary Free Text/Dictation Patient is still with nausea and diarrhea. She is concerned that the medication for diarrhea is causing worsening of her nausea. Exam/Review of Systems Exam Vitals Vital Signs Date Temp Pulse Resp B/P (MAP) Pulse Ox O2 O2 Flow FiO2 Time Delivery Rate 05/30/19 98.7 92 16 141/65 97 13:49 (90) 05/28/19 Room Air 19:58 Intake and Output 05/29/19 05/29/19 05/30/19 1515:00 23:00 07:00 IntakeIntake Total 1000 ml BalanceBalance 1000 ml Exam General: Patient is laying in bed and answers questions appropriately Neck: Supple, nontender, midline Respiratory: Clear to auscultation bilaterally. no wheezing or rhonchi Cardiovascular: regular rate and rhythm, no obvious murmurs Gastrointestinal: soft, nontender to palpation, PEG in place, bowel sounds heard. Neurological: Moves all extremities spontaneously Results Results 24hrs Laboratory Tests Test 05/29/19 17:19 05/29/19 20:39 05/30/19 03:17 05/30/19 04:24 Bedside Glucose 130 113 118 White Blood Count 15.9 H Red Blood Count 3.54 L Hemoglobin 9.2 L Hematocrit 30.4 L Mean Corpuscular 85.9 Volume Mean Corpuscular 26.0 L Hemoglobin Mean Corpuscular 30.3 L Hemoglobin Concent Red Cell 20.1 H Distribution Width Platelet Count 558 H Mean Platelet Volume 10.4 Immature 1.700 H Granulocytes % Neutrophils % 63.9 Lymphocytes % 17.6 Monocytes % 9.2 Eosinophils % 7.2 H Basophils % 0.4 Nucleated Red Blood 0.0 Cells % Immature 0.270 H Granulocytes # Neutrophils # 10.2 H Lymphocytes # 2.8 Monocytes # 1.5 H Eosinophils # 1.1 H Basophils # 0.1 Nucleated Red Blood 0.0 Cells # Sodium Level 134 L Potassium Level 4.4 Chloride Level 103 Carbon Dioxide Level 23 Anion Gap 8 Blood Urea Nitrogen 31 H Creatinine 1.07 H Glucose Level 115 Calcium Level 12.4 H Phosphorus Level 3.8 Magnesium Level 1.8 Albumin 2.9 L Test 05/30/19 08:28 05/30/19 12:20 Bedside Glucose 121 119 Medications Medication Current Medications IV Flush (NS 3 ml) 3 ml PER PROTOCOL IV ; Start 05/22/19 at 21:00 Ondansetron HCl (Zofran Inj) 4 mg Q6H PRN IV NAUSEA/VOMITING Last administered on 05/29/19at 10:33; Admin Dose 4 MG; Start 05/22/19 at 21:00 Albuterol/ Ipratropium (Duoneb) 3 ml Q2H RESP THERAPY PRN HHN SHORTNESS OF BREATH; Start 05/22/19 at 21:00 Nystatin (Nystatin Powder) 1 applic BID TOP Last administered on 05/30/19at 08:30; Admin Dose 1 APPLIC; Start 05/23/19 at 21:00 Vancomycin HCl (Vancomycin Oral Syringe) 250 mg Q6 PO Last administered on 05/30/19at 12:18; Admin Dose 250 MG; Start 05/23/19 at 16:00 Hydralazine HCl (Apresoline) 10 mg Q4H PRN IV sbp >160; Start 05/23/19 at 14:30 Acetaminophen (Tylenol Liquid) 650 mg Q6H PRN PO MILD PAIN(1-3)OR ELEVATED TEMP Last administered on 05/28/19at 20:43; Admin Dose 650 MG; Start 05/24/19 at 21:20 Scopolamine (Transderm-Scop) 1 patch Q72H TRANSDERM Last administered on 05/28/19at 13:01; Admin Dose 1 PATCH; Start 05/25/19 at 13:00 Famotidine (Pepcid) 20 mg BID PO Last administered on 05/30/19at 08:30; Admin Dose 20 MG; Start 05/26/19 at 21:00 Miscellaneous Information 1 ea NOTE XX ; Start 05/27/19 at 18:30 Glucose (Glutose) 15 gm Q15M PRN PO DECREASED GLUCOSE; Start 05/27/19 at 18:30 Glucose (Glutose) 22.5 gm Q15M PRN PO DECREASED GLUCOSE; Start 05/27/19 at 18:30 Dextrose (D50w Syringe) 25 ml Q15M PRN IV DECREASED GLUCOSE; Start 05/27/19 at 18:30 Dextrose (D50w Syringe) 50 ml Q15M PRN IV DECREASED GLUCOSE; Start 05/27/19 at 18:30 Glucagon (Glucagen) 1 mg Q15M PRN IM DECREASED GLUCOSE; Start 05/27/19 at 18:30 Glucose (Glutose) 15 gm Q15M PRN BUCCAL DECREASED GLUCOSE; Start 05/27/19 at 18:30 Insulin Aspart (Novolog Insulin Pen) NOVOLOG *MILD* ALGORI... Q6 SC ; Start 05/30/19 at 03:00 KAREN GARNER MD May 30, 2019 14:41
[2019-05-30 19:53] VITALS: BP 159/73; PULSE 91; RESP 17
[2019-05-31] MEDS: VANCOMYCIN HCL 250 MG/5ML POSYG PO SCH ×5 (00:30→23:07)
[2019-05-31 01:42] VITALS: BP 139/77; PULSE 87; RESP 18
[2019-05-31] MEDS: INSULIN ASPART [NOVOLOG] 3 ML PEN SC SCH ×5 (06:00→23:11)
[2019-05-31 07:31] VITALS: BP 156/93; PULSE 91; RESP 18
[2019-05-31] MEDS: FAMOTIDINE 20 MG TAB PO SCH ×2 (08:12→20:31)
[2019-05-31] MEDS: NYSTATIN 30 GM POWDER BTL TOP SCH ×2 (08:13→20:31)
[2019-05-31] MEDS: ONDANSETRON 4 MG INJ IV PRN (08:26)
[2019-05-31] MEDS ORDERED: CHOLECALCIFEROL 2,000 UNIT CAP PO SCH (09:00)
[2019-05-31] MEDS ORDERED: MAGNESIUM SULFATE 2 GM/50 ML 50 ML IVPB ONE (09:00)
[2019-05-31] MEDS ORDERED: ERGOCALCIFEROL 50,000 UNIT CAP PO SCH (10:00)
--- NOTE | 2019-05-31 11:25 | CONS ---
Assessment/Plan Assessment/Plan Hospital Course (Demo Recall) SUBJECTIVE: No acute events overnight no fevers WBC went up to 16 platelets 519 neutrophils 64 BUN 35 creatinine 1.03 ANTIMICROBIALS: Oral vancomycin. INDWELLINGS: PEG. PHYSICAL EXAMINATION: GENERAL: This is a chronically ill-appearing, elderly woman who is awake, in no distress. HEENT: Head atraumatic, normocephalic. NECK: Supple. CHEST: Rise symmetrical. Breath sounds clear, diminished to bases. HEART: S1, S2. ABDOMEN: Soft, bowel sounds present. ASSESSMENT: 1. Systemic inflammatory response syndrome. 2. Clostridium difficile colitis. 3. Status post urinary tract infection. 4. Diabetes. 5. Hypertension. 6. Elevated lipase. PLAN: Check chest x-ray urine culture and repeat stool for C. difficile Consultation Date/Type/Reason Admit Date/Time May 22, 2019 at 19:22 Initial Consult Date 05/23/19 Type of Consult id Requesting Provider: LINDA BOYLE Date/Time of Note DATE: 05/31/19 TIME: 11:25 Exam/Review of Systems Exam Vitals Vital Signs Date Temp Pulse Resp B/P (MAP) Pulse Ox O2 O2 Flow FiO2 Time Delivery Rate 05/31/19 98.1 91 18 156/93 97 Room Air 07:31 (114) Intake and Output 05/30/19 05/30/19 05/31/19 1515:00 23:00 07:00 IntakeIntake Total 150 ml 1220 ml OutputOutput Total 200 ml BalanceBalance -50 ml 1220 ml Results Result Diagram: 05/31/19 0459 05/31/19 0459 Results 24hrs Laboratory Tests Test 05/30/19 12:20 05/30/19 17:06 05/31/19 00:30 05/31/19 04:59 Bedside Glucose 119 134 113 White Blood Count 16.0 H Red Blood Count 3.52 L Hemoglobin 9.2 L Hematocrit 30.4 L Mean Corpuscular 86.4 Volume Mean Corpuscular 26.1 L Hemoglobin Mean Corpuscular 30.3 L Hemoglobin Concent Red Cell 19.9 H Distribution Width Platelet Count 519 H Mean Platelet Volume 10.0 Immature 2.300 H Granulocytes % Neutrophils % 64.8 Lymphocytes % 16.6 Monocytes % 8.8 Eosinophils % 7.1 H Basophils % 0.4 Nucleated Red Blood 0.0 Cells % Immature 0.370 H Granulocytes # Neutrophils # 10.4 H Lymphocytes # 2.7 Monocytes # 1.4 H Eosinophils # 1.1 H Basophils # 0.1 Nucleated Red Blood 0.0 Cells # Sodium Level 134 L Potassium Level 4.6 Chloride Level 101 Carbon Dioxide Level 24 Anion Gap 9 Blood Urea Nitrogen 35 H Creatinine 1.03 H Glucose Level 113 Calcium Level 12.2 H Phosphorus Level 4.1 Magnesium Level 1.7 Albumin 2.7 L Test 05/31/19 06:43 05/31/19 08:11 Bedside Glucose 119 131 Medications Medication Current Medications IV Flush (NS 3 ml) 3 ml PER PROTOCOL IV ; Start 05/22/19 at 21:00 Ondansetron HCl (Zofran Inj) 4 mg Q6H PRN IV NAUSEA/VOMITING Last administered on 05/31/19 08:26; Admin Dose 4 MG; Start 05/22/19 at 21:00 Albuterol/ Ipratropium (Duoneb) 3 ml Q2H RESP THERAPY PRN HHN SHORTNESS OF BREATH; Start 05/22/19 at 21:00 Nystatin (Nystatin Powder) 1 applic BID TOP Last administered on 05/31/19 08:13; Admin Dose 1 APPLIC; Start 05/23/19 at 21:00 Vancomycin HCl (Vancomycin Oral Syringe) 250 mg Q6 PO Last administered on 05/31/19 06:44; Admin Dose 250 MG; Start 05/23/19 at 16:00 Hydralazine HCl (Apresoline) 10 mg Q4H PRN IV sbp >160; Start 05/23/19 at 14:30 Acetaminophen (Tylenol Liquid) 650 mg Q6H PRN PO MILD PAIN(1-3)OR ELEVATED TEMP Last administered on 05/28/19at 20:43; Admin Dose 650 MG; Start 05/24/19 at 21:20 Scopolamine (Transderm-Scop) 1 patch Q72H TRANSDERM Last administered on 05/28/19at 13:01; Admin Dose 1 PATCH; Start 05/25/19 at 13:00 Famotidine (Pepcid) 20 mg BID PO Last administered on 05/31/19 08:12; Admin Dose 20 MG; Start 05/26/19 at 21:00 Miscellaneous Information 1 ea NOTE XX ; Start 05/27/19 at 18:30 Glucose (Glutose) 15 gm Q15M PRN PO DECREASED GLUCOSE; Start 05/27/19 at 18:30 Glucose (Glutose) 22.5 gm Q15M PRN PO DECREASED GLUCOSE; Start 05/27/19 at 18:30 Dextrose (D50w Syringe) 25 ml Q15M PRN IV DECREASED GLUCOSE; Start 05/27/19 at 18:30 Dextrose (D50w Syringe) 50 ml Q15M PRN IV DECREASED GLUCOSE; Start 05/27/19 at 18:30 Glucagon (Glucagen) 1 mg Q15M PRN IM DECREASED GLUCOSE; Start 05/27/19 at 18:30 Glucose (Glutose) 15 gm Q15M PRN BUCCAL DECREASED GLUCOSE; Start 05/27/19 at 18:30 Insulin Aspart (Novolog Insulin Pen) NOVOLOG *MILD* ALGORI... Q6 SC ; Start 05/30/19 at 03:00 Ergocalciferol (Drisdol) 50,000 unit We PO Last administered on 05/31/19at 09:40; Admin Dose 50,000 UNIT; Start 05/31/19 at 10:00 ANA MARIA ZULETA NP May 31, 2019 11:25
[2019-05-31] MEDS: ACETAMINOPHEN 650MG/20.3ML CUP PO PRN (12:26)
[2019-05-31] MEDS ORDERED: LIDOCAINE/MYLANTA 40 ML BTL PO ONE (13:00)
--- NOTE | 2019-05-31 13:10 | CONS ---
Assessment/Plan Assessment/Plan Assessment/Plan (Daily) 1. acute hypercalcemia PTH mediated vs Non PTH medicated,vs due to acute pancreatitis - pf failed foraced diuresis so far 2. acute prerenal azotemia 3. Sepsis of unclear etiology 4. acute pancreatitis 5. h/O HTN 6. H/O HL 7. H/o DM II Plan: Cl difficle positive, Change dto PO vancomycin for CL difficle associated diarrhea BUN/Cr 35/1.03,Na 134 - K normal but Ca still high 12.2 PTH 6.0, Vitamin D 1,25(OH) level is 12.8, Uric acid 6.8- Urine protein/cr ratio 1000 will follow up Consultation Date/Type/Reason Admit Date/Time May 22, 2019 at 19:22 Initial Consult Date 05/28/19 Type of Consult NEPHROLOGY Requesting Provider: LINDA BOYLE Date/Time of Note DATE: 05/31/19 TIME: 13:10 Exam/Review of Systems Exam Vitals Vital Signs Date Temp Pulse Resp B/P (MAP) Pulse Ox O2 O2 Flow FiO2 Time Delivery Rate 05/31/19 98.1 91 18 156/93 97 Room Air 07:31 (114) Intake and Output 05/30/19 05/30/19 05/31/19 1515:00 23:00 07:00 IntakeIntake Total 150 ml 1220 ml OutputOutput Total 200 ml BalanceBalance -50 ml 1220 ml Exam GENERAL: awake, alert, no acute distress. HEENT: Head atraumatic, normocephalic. NECK: Supple., no JVD, no LAD CHEST: Rise symmetrical. Breath sounds clear, diminished to bases. HEART: S1, S2 RRR no murmur ABDOMEN: Soft, bowel sounds present. Results Result Diagram: 05/31/19 0459 05/31/19 0459 Results 24hrs Laboratory Tests Test 05/30/19 17:06 05/31/19 00:30 05/31/19 04:59 05/31/19 06:43 Bedside Glucose 134 113 119 White Blood Count 16.0 H Red Blood Count 3.52 L Hemoglobin 9.2 L Hematocrit 30.4 L Mean Corpuscular 86.4 Volume Mean Corpuscular 26.1 L Hemoglobin Mean Corpuscular 30.3 L Hemoglobin Concent Red Cell 19.9 H Distribution Width Platelet Count 519 H Mean Platelet Volume 10.0 Immature 2.300 H Granulocytes % Neutrophils % 64.8 Lymphocytes % 16.6 Monocytes % 8.8 Eosinophils % 7.1 H Basophils % 0.4 Nucleated Red Blood 0.0 Cells % Immature 0.370 H Granulocytes # Neutrophils # 10.4 H Lymphocytes # 2.7 Monocytes # 1.4 H Eosinophils # 1.1 H Basophils # 0.1 Nucleated Red Blood 0.0 Cells # Sodium Level 134 L Potassium Level 4.6 Chloride Level 101 Carbon Dioxide Level 24 Anion Gap 9 Blood Urea Nitrogen 35 H Creatinine 1.03 H Glucose Level 113 Calcium Level 12.2 H Phosphorus Level 4.1 Magnesium Level 1.7 Albumin 2.7 L Test 05/31/19 08:11 05/31/19 12:31 Bedside Glucose 131 131 Medications Medication Current Medications IV Flush (NS 3 ml) 3 ml PER PROTOCOL IV ; Start 05/22/19 at 21:00 Ondansetron HCl (Zofran Inj) 4 mg Q6H PRN IV NAUSEA/VOMITING Last administered on 05/31/19 08:26; Admin Dose 4 MG; Start 05/22/19 at 21:00 Albuterol/ Ipratropium (Duoneb) 3 ml Q2H RESP THERAPY PRN HHN SHORTNESS OF BREATH; Start 05/22/19 at 21:00 Nystatin (Nystatin Powder) 1 applic BID TOP Last administered on 05/31/19at 08: 13; Admin Dose 1 APPLIC; Start 05/23/19 at 21:00 Vancomycin HCl (Vancomycin Oral Syringe) 250 mg Q6 PO Last administered on 05/31/19at 12:33; Admin Dose 250 MG; Start 05/23/19 at 16:00 Hydralazine HCl (Apresoline) 10 mg Q4H PRN IV sbp >160; Start 05/23/19 at 14:30 Acetaminophen (Tylenol Liquid) 650 mg Q6H PRN PO MILD PAIN(1-3)OR ELEVATED TEMP Last administered on 05/31/19 12:26; Admin Dose 650 MG; Start 05/24/19 at 21:20 Scopolamine (Transderm-Scop) 1 patch Q72H TRANSDERM Last administered on 05/28/19at 13:01; Admin Dose 1 PATCH; Start 05/25/19 at 13:00 Famotidine (Pepcid) 20 mg BID PO Last administered on 05/31/19at 08:12; Admin Dose 20 MG; Start 05/26/19 at 21:00 Miscellaneous Information 1 ea NOTE XX ; Start 05/27/19 at 18:30 Glucose (Glutose) 15 gm Q15M PRN PO DECREASED GLUCOSE; Start 05/27/19 at 18:30 Glucose (Glutose) 22.5 gm Q15M PRN PO DECREASED GLUCOSE; Start 05/27/19 at 18 :30 Dextrose (D50w Syringe) 25 ml Q15M PRN IV DECREASED GLUCOSE; Start 05/27/19 at 18:30 Dextrose (D50w Syringe) 50 ml Q15M PRN IV DECREASED GLUCOSE; Start 05/27/19 at 18:30 Glucagon (Glucagen) 1 mg Q15M PRN IM DECREASED GLUCOSE; Start 05/27/19 at 18:30 Glucose (Glutose) 15 gm Q15M PRN BUCCAL DECREASED GLUCOSE; Start 05/27/19 at 18:30 Insulin Aspart (Novolog Insulin Pen) NOVOLOG *MILD* ALGORI... Q6 SC ; Start 05/30/19 at 03:00 Ergocalciferol (Drisdol) 50,000 unit We PO Last administered on 05/31/19at 09:40; Admin Dose 50,000 UNIT; Start 05/31/19 at 10:00 Diclofenac Sodium (Voltaren 1% Gel) 2 gm QID TP ; Start 05/31/19 at 13:00 URIEL LAWSON MD May 31, 2019 13:10
--- NOTE | 2019-05-31 13:56 | PN ---
Date/Time of Note Date/Time of Note DATE: 05/31/19 TIME: 13:52 Assessment/Plan VTE Prophylaxis Risk score (from Ns)>0 risk: 5 SCD applied (from Ns): Yes Pharmacological prophylaxis: other (scds) Lines/Catheters [facility] Peripheral IV Urinary Cath still in place: No Assessment/Plan Hospital Course Summary Assessment and Plan: Assessment: Diarrhea 2/2 to C. Difficile Sepsis- 2/2 to CDIFF- resolving Nausea/vomiting Elevated lipase- in the setting of KENNY- improving Thrombocytosis, likely reactive- improving Acute renal insufficiency- improving Chronic severe right renal atrophy. Normocytic anemia Diabetes HTN Recent history of PNA and UTI Mild hepatic steatosis. Hypercalcemia Plan: ABX per ID Continue TF Pt feels scopolamine patch is not working for her- per her request will d/c. Will add Reglan 10mg IV q8hrs PRN- I reviewed side effects of medication and patient verbalized understanding Continue supportive care Patient seen in collaboration with Dr. Vasquez Subjective: Course reviewed with nursing staff Patient interviewed and examined All labs, imaging and other results reviewed Hypercalcemia being worked-up by hospitalist Exam PHYSICAL EXAMINATION: GENERAL: Well developed, obese, alert & oriented x 3, in no acute distress SKIN: No lesions HEAD: Normocephalic, atraumatic, no tenderness. EYES: Pupils equal reactive to light and accommodation, full extraocular movements, sclera clear, non-icteric, no discharge. EARS/NOSE AND THROAT: Ears normal, nose normal, oropharynx normal, oral membranes well hydrated without lesions. NECK: Supple, no masses. CHEST: Inspection within normal limits. CARDIOVASCULAR: Heart: Regular rate and rhythm RESPIRATORY: Lungs clear to auscultation GASTROINTESTINAL AND LIVER: Abdomen: Soft, non tenderness, non-distended, PEG, no hernias, no masses, no rebound tenderness, normoactive bowel sounds. Rectal: Deferred. EXTREMITIES: No cyanosis, clubbing or edema. Result Diagram: 05/31/19 0459 05/31/19 0459 Results 24hrs Laboratory Tests Test 05/30/19 17:06 05/31/19 00:30 05/31/19 04:59 05/31/19 06:43 Bedside Glucose 134 113 119 White Blood Count 16.0 H Red Blood Count 3.52 L Hemoglobin 9.2 L Hematocrit 30.4 L Mean Corpuscular 86.4 Volume Mean Corpuscular 26.1 L Hemoglobin Mean Corpuscular 30.3 L Hemoglobin Concent Red Cell 19.9 H Distribution Width Platelet Count 519 H Mean Platelet Volume 10.0 Immature 2.300 H Granulocytes % Neutrophils % 64.8 Lymphocytes % 16.6 Monocytes % 8.8 Eosinophils % 7.1 H Basophils % 0.4 Nucleated Red Blood 0.0 Cells % Immature 0.370 H Granulocytes # Neutrophils # 10.4 H Lymphocytes # 2.7 Monocytes # 1.4 H Eosinophils # 1.1 H Basophils # 0.1 Nucleated Red Blood 0.0 Cells # Sodium Level 134 L Potassium Level 4.6 Chloride Level 101 Carbon Dioxide Level 24 Anion Gap 9 Blood Urea Nitrogen 35 H Creatinine 1.03 H Glucose Level 113 Calcium Level 12.2 H Phosphorus Level 4.1 Magnesium Level 1.7 Albumin 2.7 L Test 05/31/19 08:11 05/31/19 12:31 Bedside Glucose 131 131 Exam/Review of Systems Exam Vitals Vital Signs Date Temp Pulse Resp B/P (MAP) Pulse Ox O2 O2 Flow FiO2 Time Delivery Rate 05/31/19 98.1 91 18 156/93 97 Room Air 07:31 (114) Intake and Output 05/30/19 05/30/19 05/31/19 1515:00 23:00 07:00 IntakeIntake Total 150 ml 1220 ml OutputOutput Total 200 ml BalanceBalance -50 ml 1220 ml Results Results 24hrs Laboratory Tests Test 05/30/19 17:06 05/31/19 00:30 05/31/19 04:59 05/31/19 06:43 Bedside Glucose 134 113 119 White Blood Count 16.0 H Red Blood Count 3.52 L Hemoglobin 9.2 L Hematocrit 30.4 L Mean Corpuscular 86.4 Volume Mean Corpuscular 26.1 L Hemoglobin Mean Corpuscular 30.3 L Hemoglobin Concent Red Cell 19.9 H Distribution Width Platelet Count 519 H Mean Platelet Volume 10.0 Immature 2.300 H Granulocytes % Neutrophils % 64.8 Lymphocytes % 16.6 Monocytes % 8.8 Eosinophils % 7.1 H Basophils % 0.4 Nucleated Red Blood 0.0 Cells % Immature 0.370 H Granulocytes # Neutrophils # 10.4 H Lymphocytes # 2.7 Monocytes # 1.4 H Eosinophils # 1.1 H Basophils # 0.1 Nucleated Red Blood 0.0 Cells # Sodium Level 134 L Potassium Level 4.6 Chloride Level 101 Carbon Dioxide Level 24 Anion Gap 9 Blood Urea Nitrogen 35 H Creatinine 1.03 H Glucose Level 113 Calcium Level 12.2 H Phosphorus Level 4.1 Magnesium Level 1.7 Albumin 2.7 L Test 05/31/19 08:11 05/31/19 12:31 Bedside Glucose 131 131 Medications Medication Current Medications IV Flush (NS 3 ml) 3 ml PER PROTOCOL IV ; Start 05/22/19 at 21:00 Ondansetron HCl (Zofran Inj) 4 mg Q6H PRN IV NAUSEA/VOMITING Last administered on 05/31/19 08:26; Admin Dose 4 MG; Start 05/22/19 at 21:00 Albuterol/ Ipratropium (Duoneb) 3 ml Q2H RESP THERAPY PRN HHN SHORTNESS OF BREATH; Start 05/22/19 at 21:00 Nystatin (Nystatin Powder) 1 applic BID TOP Last administered on 05/31/19 08:13; Admin Dose 1 APPLIC; Start 05/23/19 at 21:00 Vancomycin HCl (Vancomycin Oral Syringe) 250 mg Q6 PO Last administered on 05/31/19 12:33; Admin Dose 250 MG; Start 05/23/19 at 16:00 Hydralazine HCl (Apresoline) 10 mg Q4H PRN IV sbp >160; Start 05/23/19 at 14:30 Acetaminophen (Tylenol Liquid) 650 mg Q6H PRN PO MILD PAIN(1-3)OR ELEVATED TEMP Last administered on 05/31/19 12:26; Admin Dose 650 MG; Start 05/24/19 at 21:20 Scopolamine (Transderm-Scop) 1 patch Q72H TRANSDERM Last administered on 05/28/19 13:01; Admin Dose 1 PATCH; Start 05/25/19 at 13:00 Famotidine (Pepcid) 20 mg BID PO Last administered on 05/31/19 08:12; Admin Dose 20 MG; Start 05/26/19 at 21:00 Miscellaneous Information 1 ea NOTE XX ; Start 05/27/19 at 18:30 Glucose (Glutose) 15 gm Q15M PRN PO DECREASED GLUCOSE; Start 05/27/19 at 18:30 Glucose (Glutose) 22.5 gm Q15M PRN PO DECREASED GLUCOSE; Start 05/27/19 at 18:30 Dextrose (D50w Syringe) 25 ml Q15M PRN IV DECREASED GLUCOSE; Start 05/27/19 at 18:30 Dextrose (D50w Syringe) 50 ml Q15M PRN IV DECREASED GLUCOSE; Start 05/27/19 at 18:30 Glucagon (Glucagen) 1 mg Q15M PRN IM DECREASED GLUCOSE; Start 05/27/19 at 18:30 Glucose (Glutose) 15 gm Q15M PRN BUCCAL DECREASED GLUCOSE; Start 05/27/19 at 18:30 Insulin Aspart (Novolog Insulin Pen) NOVOLOG *MILD* ALGORI... Q6 SC ; Start 05/30/19 at 03:00 Ergocalciferol (Drisdol) 50,000 unit We PO Last administered on 05/31/19at 09:40; Admin Dose 50,000 UNIT; Start 05/31/19 at 10:00 Diclofenac Sodium (Voltaren 1% Gel) 2 gm QID TP ; Start 05/31/19 at 13:00 BALTA HENDERSON May 31, 2019 13:56
[2019-05-31 14:00] VITALS: BP 131/66; PULSE 92; RESP 18
[2019-05-31] MEDS ORDERED: METOCLOPRAMIDE 10 MG INJ IV PRN (14:00)
--- NOTE | 2019-05-31 14:31 | PN ---
Date/Time of Note Date/Time of Note DATE: 05/31/19 TIME: 14:16 Assessment/Plan VTE Prophylaxis Risk score (from Ns)>0 risk: 5 SCD applied (from Ns): Yes Pharmacological prophylaxis: other Lines/Catheters IV Catheter Type (from Nrsg): Peripheral IV Urinary Cath still in place: No Assessment/Plan Assessment/Plan 1. Hypercalcemia - Vit D levels noted and will start replacement - Nephrology consultation appreciated. ionized calcium is slightly elevated, 1.7 2. KENNY- improving - most likely prerenal - Nephrology on board 3. C. difficile colitis- improving - ID on board and appreciate recommendations. Will continue on PO Vancomycin 4. Acute pancreatitis - resolving - continue PEG feeding and PO as tolerated 5. Persistent nausea - GI on board and appreciate recommendation. Will start on Reglan and d/c scopolamine - continue current medications and monitor for improvement 6. Dysphasia and chronic nausea, - Status post G-tube placement - may be a psychiatric component and evaluated by psychiatry RN [employer] but refusing any medications 7. Disposition - Will give GI cocktail to help with epigastric discomfort. - Reglan started and scopolamine d/c - Once nausea resolves, will d/c home Result Diagram: 05/31/19 0459 05/31/19 0459 Results 24hrs Laboratory Tests Test 05/30/19 17:06 05/31/19 00:30 05/31/19 04:59 05/31/19 06:43 Bedside Glucose 134 113 119 White Blood Count 16.0 H Red Blood Count 3.52 L Hemoglobin 9.2 L Hematocrit 30.4 L Mean Corpuscular 86.4 Volume Mean Corpuscular 26.1 L Hemoglobin Mean Corpuscular 30.3 L Hemoglobin Concent Red Cell 19.9 H Distribution Width Platelet Count 519 H Mean Platelet Volume 10.0 Immature 2.300 H Granulocytes % Neutrophils % 64.8 Lymphocytes % 16.6 Monocytes % 8.8 Eosinophils % 7.1 H Basophils % 0.4 Nucleated Red Blood 0.0 Cells % Immature 0.370 H Granulocytes # Neutrophils # 10.4 H Lymphocytes # 2.7 Monocytes # 1.4 H Eosinophils # 1.1 H Basophils # 0.1 Nucleated Red Blood 0.0 Cells # Sodium Level 134 L Potassium Level 4.6 Chloride Level 101 Carbon Dioxide Level 24 Anion Gap 9 Blood Urea Nitrogen 35 H Creatinine 1.03 H Glucose Level 113 Calcium Level 12.2 H Phosphorus Level 4.1 Magnesium Level 1.7 Albumin 2.7 L Test 05/31/19 08:11 05/31/19 12:31 Bedside Glucose 131 131 Subjective 24 Hr Interval Summary Free Text/Dictation Patient still with nausea but states diarrhea is improving. Also complaining of discomfort in epigastric area with mild relief after Pepcid given. Exam/Review of Systems Exam Vitals Vital Signs Date Temp Pulse Resp B/P (MAP) Pulse Ox O2 O2 Flow FiO2 Time Delivery Rate 05/31/19 98.1 91 18 156/93 97 Room Air 07:31 (114) Intake and Output 05/30/19 05/30/19 05/31/19 1515:00 23:00 07:00 IntakeIntake Total 150 ml 1220 ml OutputOutput Total 200 ml BalanceBalance -50 ml 1220 ml Exam General: Patient is laying in bed. mild distress secondary to nausea Neck: Supple, nontender, midline Respiratory: Clear to auscultation bilaterally. no wheezing or rhonchi Cardiovascular: regular rate and rhythm, no obvious murmurs Gastrointestinal: soft, nontender to palpation, PEG in place, bowel sounds heard. Neurological: Moves all extremities spontaneously Results Results 24hrs Laboratory Tests Test 05/30/19 17:06 05/31/19 00:30 05/31/19 04:59 05/31/19 06:43 Bedside Glucose 134 113 119 White Blood Count 16.0 H Red Blood Count 3.52 L Hemoglobin 9.2 L Hematocrit 30.4 L Mean Corpuscular 86.4 Volume Mean Corpuscular 26.1 L Hemoglobin Mean Corpuscular 30.3 L Hemoglobin Concent Red Cell 19.9 H Distribution Width Platelet Count 519 H Mean Platelet Volume 10.0 Immature 2.300 H Granulocytes % Neutrophils % 64.8 Lymphocytes % 16.6 Monocytes % 8.8 Eosinophils % 7.1 H Basophils % 0.4 Nucleated Red Blood 0.0 Cells % Immature 0.370 H Granulocytes # Neutrophils # 10.4 H Lymphocytes # 2.7 Monocytes # 1.4 H Eosinophils # 1.1 H Basophils # 0.1 Nucleated Red Blood 0.0 Cells # Sodium Level 134 L Potassium Level 4.6 Chloride Level 101 Carbon Dioxide Level 24 Anion Gap 9 Blood Urea Nitrogen 35 H Creatinine 1.03 H Glucose Level 113 Calcium Level 12.2 H Phosphorus Level 4.1 Magnesium Level 1.7 Albumin 2.7 L Test 05/31/19 08:11 05/31/19 12:31 Bedside Glucose 131 131 Medications Medication Current Medications IV Flush (NS 3 ml) 3 ml PER PROTOCOL IV ; Start 05/22/19 at 21:00 Ondansetron HCl (Zofran Inj) 4 mg Q6H PRN IV NAUSEA/VOMITING Last administered on 05/31/19at 08:26; Admin Dose 4 MG; Start 05/22/19 at 21:00 Albuterol/ Ipratropium (Duoneb) 3 ml Q2H RESP THERAPY PRN HHN SHORTNESS OF BREATH; Start 05/22/19 at 21:00 Nystatin (Nystatin Powder) 1 applic BID TOP Last administered on 05/31/19at 08:13; Admin Dose 1 APPLIC; Start 05/23/19 at 21:00 Vancomycin HCl (Vancomycin Oral Syringe) 250 mg Q6 PO Last administered on 05/31/19at 12:33; Admin Dose 250 MG; Start 05/23/19 at 16:00 Hydralazine HCl (Apresoline) 10 mg Q4H PRN IV sbp >160; Start 05/23/19 at 14:30 Acetaminophen (Tylenol Liquid) 650 mg Q6H PRN PO MILD PAIN(1-3)OR ELEVATED TEMP Last administered on 05/31/19at 12:26; Admin Dose 650 MG; Start 05/24/19 at 21:20 Famotidine (Pepcid) 20 mg BID PO Last administered on 05/31/19at 08:12; Admin Dose 20 MG; Start 05/26/19 at 21:00 Miscellaneous Information 1 ea NOTE XX ; Start 05/27/19 at 18:30 Glucose (Glutose) 15 gm Q15M PRN PO DECREASED GLUCOSE; Start 05/27/19 at 18:30 Glucose (Glutose) 22.5 gm Q15M PRN PO DECREASED GLUCOSE; Start 05/27/19 at 18:30 Dextrose (D50w Syringe) 25 ml Q15M PRN IV DECREASED GLUCOSE; Start 05/27/19 at 18:30 Dextrose (D50w Syringe) 50 ml Q15M PRN IV DECREASED GLUCOSE; Start 05/27/19 at 18:30 Glucagon (Glucagen) 1 mg Q15M PRN IM DECREASED GLUCOSE; Start 05/27/19 at 18:30 Glucose (Glutose) 15 gm Q15M PRN BUCCAL DECREASED GLUCOSE; Start 05/27/19 at 18:30 Insulin Aspart (Novolog Insulin Pen) NOVOLOG *MILD* ALGORI... Q6 SC ; Start 05/30/19 at 03:00 Ergocalciferol (Drisdol) 50,000 unit We PO Last administered on 05/31/19at 09:40; Admin Dose 50,000 UNIT; Start 05/31/19 at 10:00 Diclofenac Sodium (Voltaren 1% Gel) 2 gm QID TP ; Start 05/31/19 at 13:00 Metoclopramide HCl (Reglan) 10 mg Q8H PRN IV n/v; Start 05/31/19 at 14:00 KAREN GARNER MD May 31, 2019 14:31
[2019-05-31] MEDS: DICLOFENAC SODIUM 1% GEL 100 GM TUBE TP SCH ×3 (14:54→20:31)
[2019-05-31 20:00] VITALS: BP 159/69; PULSE 92; RESP 18
[2019-06-01 02:01] VITALS: BP 129/74; PULSE 95; RESP 17
[2019-06-01] MEDS: VANCOMYCIN HCL 250 MG/5ML POSYG PO SCH ×4 (05:29→23:12)
[2019-06-01] MEDS: INSULIN ASPART [NOVOLOG] 3 ML PEN SC SCH ×4 (05:32→23:16)
[2019-06-01 07:17] VITALS: BP 141/61; PULSE 88; RESP 18
[2019-06-01] MEDS: FAMOTIDINE 20 MG TAB PO SCH ×2 (07:59→20:12)
[2019-06-01] MEDS: DICLOFENAC SODIUM 1% GEL 100 GM TUBE TP SCH ×4 (08:00→20:12)
[2019-06-01] MEDS: NYSTATIN 30 GM POWDER BTL TOP SCH ×2 (08:00→20:12)
--- NOTE | 2019-06-01 10:31 | PN ---
Date/Time of Note Date/Time of Note DATE: 06/01/19 TIME: 10:26 Assessment/Plan VTE Prophylaxis Risk score (from Ns)>0 risk: 5 SCD applied (from Ns): Yes Pharmacological prophylaxis: other (scds) Lines/Catheters [facility]from [facility] Peripheral IV Urinary Cath still in place: No Assessment/Plan Hospital Course Summary Assessment and Plan: Assessment: Diarrhea 2/2 to C. Difficile Sepsis- 2/2 to CDIFF- resolving Persistent Leukocytosis Nausea/vomiting Elevated lipase- in the setting of KENNY- improving Thrombocytosis, likely reactive- improving Acute renal insufficiency- improving Chronic severe right renal atrophy. Normocytic anemia Diabetes HTN Recent history of PNA and UTI Mild hepatic steatosis. Hypercalcemia Plan: ABX per ID Continue TF Continue current regimen GI will sign off but will be available upon reconsult as needed Patient seen in collaboration with Dr. Vasquez Subjective: Course reviewed with nursing staff Patient interviewed and examined All labs, imaging and other results reviewed Pt resting in bed, easily awake, CXR- Low lung volumes with apparent trace right pleural effusion Instructed on how to use IS, encourage working with Pt- patient refusing Encourage use of IS Exam PHYSICAL EXAMINATION: GENERAL: Well developed, obese, alert & oriented x 3, in no acute distress SKIN: No lesions HEAD: Normocephalic, atraumatic, no tenderness. EYES: Pupils equal reactive to light and accommodation, full extraocular movements, sclera clear, non-icteric, no discharge. EARS/NOSE AND THROAT: Ears normal, nose normal, oropharynx normal, oral membranes well hydrated without lesions. NECK: Supple, no masses. CHEST: Inspection within normal limits. CARDIOVASCULAR: Heart: Regular rate and rhythm RESPIRATORY: Lungs clear to auscultation GASTROINTESTINAL AND LIVER: Abdomen: Soft, non tenderness, non-distended, PEG, no hernias, no masses, no rebound tenderness, normoactive bowel sounds. Rectal: Deferred. EXTREMITIES: No cyanosis, clubbing or edema. Result Diagram: 06/01/1942906/01/19 043 Results 24hrs Laboratory Tests Test 05/31/19 12:31 05/31/19 17:06 05/31/19 23:09 06/01/19 04:30 Bedside Glucose 131 138 130 White Blood Count 17.0 H Red Blood Count 3.70 L Hemoglobin 9.6 L Hematocrit 31.1 L Mean Corpuscular 84.1 Volume Mean Corpuscular 25.9 L Hemoglobin Mean Corpuscular 30.9 L Hemoglobin Concent Red Cell 19.8 H Distribution Width Platelet Count 515 H Mean Platelet Volume 10.9 H Immature 1.900 H Granulocytes % Neutrophils % 67.1 Lymphocytes % 15.8 Monocytes % 8.0 Eosinophils % 6.7 Basophils % 0.5 Nucleated Red Blood 0.0 Cells % Immature 0.320 H Granulocytes # Neutrophils # 11.4 H Lymphocytes # 2.7 Monocytes # 1.4 H Eosinophils # 1.1 H Basophils # 0.1 Nucleated Red Blood 0.0 Cells # Sodium Level 135 Potassium Level 4.1 Chloride Level 99 Carbon Dioxide Level 26 Anion Gap 10 Blood Urea Nitrogen 35 H Creatinine 1.21 H Glucose Level 110 Calcium Level 12.7 H Phosphorus Level 4.2 Magnesium Level 2.0 Albumin 3.5 Test 06/01/19 05:30 06/01/19 07:58 Bedside Glucose 126 141 Exam/Review of Systems Exam Vitals Vital Signs Date Temp Pulse Resp B/P (MAP) Pulse Ox O2 O2 Flow FiO2 Time Delivery Rate 06/01/19 98.2 88 18 141/61 98 Room Air 07:17 (87) Intake and Output 05/31/19 05/31/19 06/01/19 1414:59 22:59 06:59 IntakeIntake Total 50 ml 1240 ml BalanceBalance 50 ml 1240 ml Results Results 24hrs Laboratory Tests Test 05/31/19 12:31 05/31/19 17:06 05/31/19 23:09 06/01/19 04:30 Bedside Glucose 131 138 130 White Blood Count 17.0 H Red Blood Count 3.70 L Hemoglobin 9.6 L Hematocrit 31.1 L Mean Corpuscular 84.1 Volume Mean Corpuscular 25.9 L Hemoglobin Mean Corpuscular 30.9 L Hemoglobin Concent Red Cell 19.8 H Distribution Width Platelet Count 515 H Mean Platelet Volume 10.9 H Immature 1.900 H Granulocytes % Neutrophils % 67.1 Lymphocytes % 15.8 Monocytes % 8.0 Eosinophils % 6.7 Basophils % 0.5 Nucleated Red Blood 0.0 Cells % Immature 0.320 H Granulocytes # Neutrophils # 11.4 H Lymphocytes # 2.7 Monocytes # 1.4 H Eosinophils # 1.1 H Basophils # 0.1 Nucleated Red Blood 0.0 Cells # Sodium Level 135 Potassium Level 4.1 Chloride Level 99 Carbon Dioxide Level 26 Anion Gap 10 Blood Urea Nitrogen 35 H Creatinine 1.21 H Glucose Level 110 Calcium Level 12.7 H Phosphorus Level 4.2 Magnesium Level 2.0 Albumin 3.5 Test 06/01/19 05:30 06/01/19 07:58 Bedside Glucose 126 141 Medications Medication Current Medications IV Flush (NS 3 ml) 3 ml PER PROTOCOL IV ; Start 05/22/19 at 21:00 Ondansetron HCl (Zofran Inj) 4 mg Q6H PRN IV NAUSEA/VOMITING Last administered on 05/31/19at 08:26; Admin Dose 4 MG; Start 05/22/19 at 21:00 Albuterol/ Ipratropium (Duoneb) 3 ml Q2H RESP THERAPY PRN HHN SHORTNESS OF BREATH; Start 05/22/19 at 21:00 Nystatin (Nystatin Powder) 1 applic BID TOP Last administered on 06/01/19at 08:00; Admin Dose 1 APPLIC; Start 05/23/19 at 21:00 Vancomycin HCl (Vancomycin Oral Syringe) 250 mg Q6 PO Last administered on 06/01/19at 05:29; Admin Dose 250 MG; Start 05/23/19 at 16:00 Hydralazine HCl (Apresoline) 10 mg Q4H PRN IV sbp >160; Start 05/23/19 at 14:30 Acetaminophen (Tylenol Liquid) 650 mg Q6H PRN PO MILD PAIN(1-3)OR ELEVATED TEMP Last administered on 05/31/19at 12:26; Admin Dose 650 MG; Start 05/24/19 at 21:20 Famotidine (Pepcid) 20 mg BID PO Last administered on 06/01/19at 07:59; Admin Dose 20 MG; Start 05/26/19 at 21:00 Miscellaneous Information 1 ea NOTE XX ; Start 05/27/19 at 18:30 Glucose (Glutose) 15 gm Q15M PRN PO DECREASED GLUCOSE; Start 05/27/19 at 18:30 Glucose (Glutose) 22.5 gm Q15M PRN PO DECREASED GLUCOSE; Start 05/27/19 at 18:30 Dextrose (D50w Syringe) 25 ml Q15M PRN IV DECREASED GLUCOSE; Start 05/27/19 at 18:30 Dextrose (D50w Syringe) 50 ml Q15M PRN IV DECREASED GLUCOSE; Start 05/27/19 at 18:30 Glucagon (Glucagen) 1 mg Q15M PRN IM DECREASED GLUCOSE; Start 05/27/19 at 18:30 Glucose (Glutose) 15 gm Q15M PRN BUCCAL DECREASED GLUCOSE; Start 05/27/19 at 18:30 Insulin Aspart (Novolog Insulin Pen) NOVOLOG *MILD* ALGORI... Q6 SC ; Start 05/30/19 at 03:00 Ergocalciferol (Drisdol) 50,000 unit We PO Last administered on 05/31/19at 09:40; Admin Dose 50,000 UNIT; Start 05/31/19 at 10:00 Diclofenac Sodium (Voltaren 1% Gel) 2 gm QID TP Last administered on 06/01/19at 08:00; Admin Dose 2 GM; Start 05/31/19 at 13:00 Metoclopramide HCl (Reglan) 10 mg Q8H PRN IV n/v; Start 05/31/19 at 14:00 BALTA HENDERSON Jun 01, 2019 10:31
--- NOTE | 2019-06-01 11:15 | CONS ---
Assessment/Plan Assessment/Plan Assessment/Plan (Daily) 1. acute hypercalcemia PTH mediated vs Non PTH medicated,vs due to acute pancreatitis - pf failed foraced diuresis so far 2. acute prerenal azotemia 3. Sepsis of unclear etiology 4. acute pancreatitis 5. h/O HTN 6. H/O HL 7. H/o DM II Plan: Cl difficle positive, Change dto PO vancomycin for CL difficle associated diarrhea BUN/Cr 35/1.21,Na 135 - K normal but Ca still high 12.7- will give one dose pamidronate 30gram IV x 1 dose today PTH 6.0, Vitamin D 1,25(OH) level is 12.8, Uric acid 6.8- Urine protein/cr ratio 1000 will follow up Consultation Date/Type/Reason Admit Date/Time May 22, 2019 at 19:22 Initial Consult Date 05/28/19 Type of Consult NEPHROLOGY Requesting Provider: LINDA BOYLE Date/Time of Note DATE: 06/01/19 TIME: 11:15 Exam/Review of Systems Exam Vitals Vital Signs Date Temp Pulse Resp B/P (MAP) Pulse Ox O2 O2 Flow FiO2 Time Delivery Rate 06/01/19 98.2 88 18 141/61 98 Room Air 07:17 (87) Intake and Output 05/31/19 05/31/19 06/01/19 1515:00 23:00 07:00 IntakeIntake Total 50 ml 1240 ml BalanceBalance 50 ml 1240 ml Results Result Diagram: 06/01/19 0430 06/01/19 0430 Results 24hrs Laboratory Tests Test 05/31/19 12:31 05/31/19 17:06 05/31/19 23:09 06/01/19 04:30 Bedside Glucose 131 138 130 White Blood Count 17.0 H Red Blood Count 3.70 L Hemoglobin 9.6 L Hematocrit 31.1 L Mean Corpuscular 84.1 Volume Mean Corpuscular 25.9 L Hemoglobin Mean Corpuscular 30.9 L Hemoglobin Concent Red Cell 19.8 H Distribution Width Platelet Count 515 H Mean Platelet Volume 10.9 H Immature 1.900 H Granulocytes % Neutrophils % 67.1 Lymphocytes % 15.8 Monocytes % 8.0 Eosinophils % 6.7 Basophils % 0.5 Nucleated Red Blood 0.0 Cells % Immature 0.320 H Granulocytes # Neutrophils # 11.4 H Lymphocytes # 2.7 Monocytes # 1.4 H Eosinophils # 1.1 H Basophils # 0.1 Nucleated Red Blood 0.0 Cells # Sodium Level 135 Potassium Level 4.1 Chloride Level 99 Carbon Dioxide Level 26 Anion Gap 10 Blood Urea Nitrogen 35 H Creatinine 1.21 H Glucose Level 110 Calcium Level 12.7 H Phosphorus Level 4.2 Magnesium Level 2.0 Albumin 3.5 Test 06/01/19 05:30 06/01/19 07:58 Bedside Glucose 126 141 Medications Medication Current Medications IV Flush (NS 3 ml) 3 ml PER PROTOCOL IV ; Start 05/22/19 at 21:00 Ondansetron HCl (Zofran Inj) 4 mg Q6H PRN IV NAUSEA/VOMITING Last administered on 05/31/19at 08:26; Admin Dose 4 MG; Start 05/22/19 at 21:00 Albuterol/ Ipratropium (Duoneb) 3 ml Q2H RESP THERAPY PRN HHN SHORTNESS OF BREATH; Start 05/22/19 at 21:00 Nystatin (Nystatin Powder) 1 applic BID TOP Last administered on 06/01/19at 08:00; Admin Dose 1 APPLIC; Start 05/23/19 at 21:00 Vancomycin HCl (Vancomycin Oral Syringe) 250 mg Q6 PO Last administered on 06/01/19at 05:29; Admin Dose 250 MG; Start 05/23/19 at 16:00 Hydralazine HCl (Apresoline) 10 mg Q4H PRN IV sbp >160; Start 05/23/19 at 14:30 Acetaminophen (Tylenol Liquid) 650 mg Q6H PRN PO MILD PAIN(1-3)OR ELEVATED TEMP Last administered on 05/31/19at 12:26; Admin Dose 650 MG; Start 05/24/19 at 21:20 Famotidine (Pepcid) 20 mg BID PO Last administered on 06/01/19at 07:59; Admin Dose 20 MG; Start 05/26/19 at 21:00 Miscellaneous Information 1 ea NOTE XX ; Start 05/27/19 at 18:30 Glucose (Glutose) 15 gm Q15M PRN PO DECREASED GLUCOSE; Start 05/27/19 at 18:30 Glucose (Glutose) 22.5 gm Q15M PRN PO DECREASED GLUCOSE; Start 05/27/19 at 18:30 Dextrose (D50w Syringe) 25 ml Q15M PRN IV DECREASED GLUCOSE; Start 05/27/19 at 18:30 Dextrose (D50w Syringe) 50 ml Q15M PRN IV DECREASED GLUCOSE; Start 05/27/19 at 18:30 Glucagon (Glucagen) 1 mg Q15M PRN IM DECREASED GLUCOSE; Start 05/27/19 at 18:30 Glucose (Glutose) 15 gm Q15M PRN BUCCAL DECREASED GLUCOSE; Start 05/27/19 at 18:30 Insulin Aspart (Novolog Insulin Pen) NOVOLOG *MILD* ALGORI... Q6 SC ; Start 05/30/19 at 03:00 Ergocalciferol (Drisdol) 50,000 unit We PO Last administered on 05/31/19at 09:40; Admin Dose 50,000 UNIT; Start 05/31/19 at 10:00 Metoclopramide HCl (Reglan) 10 mg Q8H PRN IV n/v; Start 05/31/19 at 14:00 Diclofenac Sodium (Voltaren 1% Gel) 4 gm QID TP ; Start 06/01/19 at 13:00; Status URIEL FITCH MD Jun 01, 2019 11:15
--- NOTE | 2019-06-01 12:29 | CONS ---
Assessment/Plan Assessment/Plan Hospital Course (Demo Recall) SUBJECTIVE: No acute changes patient is alert denies pain still was on and off nausea, no vomiting, no diarrhea today, no fevers WBC 17 platelets 515 neutrophils 67.1 BUN 35 creatinine 1.21 Urine culture sent yesterday pending Chest x-ray from yesterday revealed no focal consolidation ANTIMICROBIALS: Oral vancomycin. INDWELLINGS: PEG. PHYSICAL EXAMINATION: GENERAL: This is a chronically ill-appearing, elderly woman who is awake, in no distress. HEENT: Head atraumatic, normocephalic. NECK: Supple. CHEST: Rise symmetrical. Breath sounds clear, diminished to bases. HEART: S1, S2. ABDOMEN: Soft, bowel sounds present. ASSESSMENT: 1. Systemic inflammatory response syndrome. 2. Clostridium difficile colitis. 3. Status post urinary tract infection. 4. Diabetes. 5. Hypertension. 6. KENNY PLAN: She is clinically stable, pending repeat stool for C. difficile and urine culture, continue on oral vancomycin Discussed with patient and family at bedside Consultation Date/Type/Reason Admit Date/Time May 22, 2019 at 19:22 Initial Consult Date 05/23/19 Type of Consult id Requesting Provider: LINDA BOYLE Date/Time of Note DATE: 06/01/19 TIME: 12:28 Exam/Review of Systems Exam Vitals Vital Signs Date Temp Pulse Resp B/P (MAP) Pulse Ox O2 O2 Flow FiO2 Time Delivery Rate 06/01/19 98.2 88 18 141/61 98 Room Air 07:17 (87) Intake and Output 05/31/19 05/31/19 06/01/19 1414:59 22:59 06:59 IntakeIntake Total 50 ml 1240 ml BalanceBalance 50 ml 1240 ml Results Result Diagram: 06/01/19 0430 06/01/19 0430 Results 24hrs Laboratory Tests Test 05/31/19 12:31 05/31/19 17:06 05/31/19 23:09 06/01/19 04:30 Bedside Glucose 131 138 130 White Blood Count 17.0 H Red Blood Count 3.70 L Hemoglobin 9.6 L Hematocrit 31.1 L Mean Corpuscular 84.1 Volume Mean Corpuscular 25.9 L Hemoglobin Mean Corpuscular 30.9 L Hemoglobin Concent Red Cell 19.8 H Distribution Width Platelet Count 515 H Mean Platelet Volume 10.9 H Immature 1.900 H Granulocytes % Neutrophils % 67.1 Lymphocytes % 15.8 Monocytes % 8.0 Eosinophils % 6.7 Basophils % 0.5 Nucleated Red Blood 0.0 Cells % Immature 0.320 H Granulocytes # Neutrophils # 11.4 H Lymphocytes # 2.7 Monocytes # 1.4 H Eosinophils # 1.1 H Basophils # 0.1 Nucleated Red Blood 0.0 Cells # Sodium Level 135 Potassium Level 4.1 Chloride Level 99 Carbon Dioxide Level 26 Anion Gap 10 Blood Urea Nitrogen 35 H Creatinine 1.21 H Glucose Level 110 Calcium Level 12.7 H Phosphorus Level 4.2 Magnesium Level 2.0 Albumin 3.5 Test 06/01/19 05:30 06/01/19 07:58 06/01/19 12:12 Bedside Glucose 126 141 137 Medications Medication Current Medications IV Flush (NS 3 ml) 3 ml PER PROTOCOL IV ; Start 05/22/19 at 21:00 Ondansetron HCl (Zofran Inj) 4 mg Q6H PRN IV NAUSEA/VOMITING Last administered on 05/31/19 08:26; Admin Dose 4 MG; Start 05/22/19 at 21:00 Albuterol/ Ipratropium (Duoneb) 3 ml Q2H RESP THERAPY PRN HHN SHORTNESS OF BREATH; Start 05/22/19 at 21:00 Nystatin (Nystatin Powder) 1 applic BID TOP Last administered on 06/01/19at 08:00; Admin Dose 1 APPLIC; Start 05/23/19 at 21:00 Vancomycin HCl (Vancomycin Oral Syringe) 250 mg Q6 PO Last administered on 06/01/19at 12:12; Admin Dose 250 MG; Start 05/23/19 at 16:00 Hydralazine HCl (Apresoline) 10 mg Q4H PRN IV sbp >160; Start 05/23/19 at 14:30 Acetaminophen (Tylenol Liquid) 650 mg Q6H PRN PO MILD PAIN(1-3)OR ELEVATED TEMP Last administered on 05/31/19at 12:26; Admin Dose 650 MG; Start 05/24/19 at 21:20 Famotidine (Pepcid) 20 mg BID PO Last administered on 06/01/19at 07:59; Admin Dose 20 MG; Start 05/26/19 at 21:00 Miscellaneous Information 1 ea NOTE XX ; Start 05/27/19 at 18:30 Glucose (Glutose) 15 gm Q15M PRN PO DECREASED GLUCOSE; Start 05/27/19 at 18:30 Glucose (Glutose) 22.5 gm Q15M PRN PO DECREASED GLUCOSE; Start 05/27/19 at 18:30 Dextrose (D50w Syringe) 25 ml Q15M PRN IV DECREASED GLUCOSE; Start 05/27/19 at 18:30 Dextrose (D50w Syringe) 50 ml Q15M PRN IV DECREASED GLUCOSE; Start 05/27/19 at 18:30 Glucagon (Glucagen) 1 mg Q15M PRN IM DECREASED GLUCOSE; Start 05/27/19 at 18:30 Glucose (Glutose) 15 gm Q15M PRN BUCCAL DECREASED GLUCOSE; Start 05/27/19 at 18:30 Insulin Aspart (Novolog Insulin Pen) NOVOLOG *MILD* ALGORI... Q6 SC ; Start 05/30/19 at 03:00 Ergocalciferol (Drisdol) 50,000 unit We PO Last administered on 05/31/19at 09:40; Admin Dose 50,000 UNIT; Start 05/31/19 at 10:00 Metoclopramide HCl (Reglan) 10 mg Q8H PRN IV n/v; Start 05/31/19 at 14:00 Diclofenac Sodium (Voltaren 1% Gel) 4 gm QID TP Last administered on 06/01/19at 12:18; Admin Dose 4 GM; Start 06/01/19 at 13:00 Pamidronate Disodium 30 mg/ Sodium Chloride 500 ml @ 83.333 mls/ hr Q6H ONCE IV Last administered on 06/01/19at 12:18; Admin Dose 83.333 MLS/HR; Start 06/01/19 at 12:30; Stop 06/01/19 at 18:29 ANA MARIA ZULETA NP Jun 01, 2019 12:29
[2019-06-01] MEDS ORDERED: PAMIDRONATE 30 MG in SOD CHLORIDE 0.9% 500 ML IV ONE (12:30)
[2019-06-01 13:30] VITALS: BP 128/59; PULSE 93; RESP 18
--- NOTE | 2019-06-01 14:54 | PN ---
Date/Time of Note Date/Time of Note DATE: 06/01/19 TIME: 14:45 Assessment/Plan VTE Prophylaxis Risk score (from Ns)>0 risk: 5 SCD applied (from Ns): Yes Pharmacological prophylaxis: other Lines/Catheters IV Catheter Type (from Nrsg): Peripheral IV Urinary Cath still in place: No Assessment/Plan Assessment/Plan 1. Hypercalcemia - still elevated this am - Nephrology consultation appreciated. 2. KENNY - Nephrology on board - encouraged PO hydration 3. C. difficile colitis- resolved - ID on board and appreciate recommendations. Repeat cdiff negative 4. Acute pancreatitis - resolving - continue PEG feeding and PO as tolerated 5. Persistent nausea - GI on board and appreciate recommendation. Continue on Reglan - continue current medications and monitor for improvement 6. Dysphasia and chronic nausea, - Status post G-tube placement - may be a psychiatric component and evaluated by psychiatry CAN TENDER but refusing any medications 7. Osteoarthritis - Voltaren for knees bilaterally - encouraged 8. Disposition - Encouraged patient to work with PT even if just bed mobility - If renal function improves and no further episodes of diarrhea, will d/c tomorrow Result Diagram: 06/01/19 0430 06/01/19 0430 Results 24hrs Laboratory Tests Test 05/31/19 17:06 05/31/19 23:09 06/01/19 04:30 06/01/19 05:30 Bedside Glucose 138 130 126 White Blood Count 17.0 H Red Blood Count 3.70 L Hemoglobin 9.6 L Hematocrit 31.1 L Mean Corpuscular 84.1 Volume Mean Corpuscular 25.9 L Hemoglobin Mean Corpuscular 30.9 L Hemoglobin Concent Red Cell 19.8 H Distribution Width Platelet Count 515 H Mean Platelet Volume 10.9 H Immature 1.900 H Granulocytes % Neutrophils % 67.1 Lymphocytes % 15.8 Monocytes % 8.0 Eosinophils % 6.7 Basophils % 0.5 Nucleated Red Blood 0.0 Cells % Immature 0.320 H Granulocytes # Neutrophils # 11.4 H Lymphocytes # 2.7 Monocytes # 1.4 H Eosinophils # 1.1 H Basophils # 0.1 Nucleated Red Blood 0.0 Cells # Sodium Level 135 Potassium Level 4.1 Chloride Level 99 Carbon Dioxide Level 26 Anion Gap 10 Blood Urea Nitrogen 35 H Creatinine 1.21 H Glucose Level 110 Calcium Level 12.7 H Phosphorus Level 4.2 Magnesium Level 2.0 Albumin 3.5 Test 06/01/19 07:58 06/01/19 12:12 Bedside Glucose 141 137 Subjective 24 Hr Interval Summary Free Text/Dictation Patient denies any diarrhea but still with some nausea. Discussed plan of care with daughter and would like to take patient home when possible. Exam/Review of Systems Exam Vitals Vital Signs Date Temp Pulse Resp B/P (MAP) Pulse Ox O2 O2 Flow FiO2 Time Delivery Rate 06/01/19 98.1 93 18 128/59 97 Room Air 13:30 (82) Intake and Output 05/31/19 05/31/19 06/01/19 1515:00 23:00 07:00 IntakeIntake Total 50 ml 1240 ml BalanceBalance 50 ml 1240 ml Exam General: Patient is laying in bed. mild distress secondary to nausea Neck: Supple, nontender, midline Respiratory: Clear to auscultation bilaterally. no wheezing or rhonchi Cardiovascular: regular rate and rhythm, no obvious murmurs Gastrointestinal: soft, nontender to palpation, PEG in place, bowel sounds heard. ext: Moves all extremities spontaneously. no edema Results Results 24hrs Laboratory Tests Test 05/31/19 17:06 05/31/19 23:09 06/01/19 04:30 06/01/19 05:30 Bedside Glucose 138 130 126 White Blood Count 17.0 H Red Blood Count 3.70 L Hemoglobin 9.6 L Hematocrit 31.1 L Mean Corpuscular 84.1 Volume Mean Corpuscular 25.9 L Hemoglobin Mean Corpuscular 30.9 L Hemoglobin Concent Red Cell 19.8 H Distribution Width Platelet Count 515 H Mean Platelet Volume 10.9 H Immature 1.900 H Granulocytes % Neutrophils % 67.1 Lymphocytes % 15.8 Monocytes % 8.0 Eosinophils % 6.7 Basophils % 0.5 Nucleated Red Blood 0.0 Cells % Immature 0.320 H Granulocytes # Neutrophils # 11.4 H Lymphocytes # 2.7 Monocytes # 1.4 H Eosinophils # 1.1 H Basophils # 0.1 Nucleated Red Blood 0.0 Cells # Sodium Level 135 Potassium Level 4.1 Chloride Level 99 Carbon Dioxide Level 26 Anion Gap 10 Blood Urea Nitrogen 35 H Creatinine 1.21 H Glucose Level 110 Calcium Level 12.7 H Phosphorus Level 4.2 Magnesium Level 2.0 Albumin 3.5 Test 06/01/19 07:58 06/01/19 12:12 Bedside Glucose 141 137 Medications Medication Current Medications IV Flush (NS 3 ml) 3 ml PER PROTOCOL IV ; Start 05/22/19 at 21:00 Ondansetron HCl (Zofran Inj) 4 mg Q6H PRN IV NAUSEA/VOMITING Last administered on 05/31/19at 08:26; Admin Dose 4 MG; Start 05/22/19 at 21:00 Albuterol/ Ipratropium (Duoneb) 3 ml Q2H RESP THERAPY PRN HHN SHORTNESS OF BREATH; Start 05/22/19 at 21:00 Nystatin (Nystatin Powder) 1 applic BID TOP Last administered on 06/01/19at 08 :00; Admin Dose 1 APPLIC; Start 05/23/19 at 21:00 Vancomycin HCl (Vancomycin Oral Syringe) 250 mg Q6 PO Last administered on 06/01/19at 12:12; Admin Dose 250 MG; Start 05/23/19 at 16:00 Hydralazine HCl (Apresoline) 10 mg Q4H PRN IV sbp >160; Start 05/23/19 at 14:30 Acetaminophen (Tylenol Liquid) 650 mg Q6H PRN PO MILD PAIN(1-3)OR ELEVATED TEMP Last administered on 05/31/19at 12:26; Admin Dose 650 MG; Start 05/24/19 at 21:20 Famotidine (Pepcid) 20 mg BID PO Last administered on 06/01/19at 07:59; Admin Dose 20 MG; Start 05/26/19 at 21:00 Miscellaneous Information 1 ea NOTE XX ; Start 05/27/19 at 18:30 Glucose (Glutose) 15 gm Q15M PRN PO DECREASED GLUCOSE; Start 05/27/19 at 18:30 Glucose (Glutose) 22.5 gm Q15M PRN PO DECREASED GLUCOSE; Start 05/27/19 at 18:30 Dextrose (D50w Syringe) 25 ml Q15M PRN IV DECREASED GLUCOSE; Start 05/27/19 at 18:30 Dextrose (D50w Syringe) 50 ml Q15M PRN IV DECREASED GLUCOSE; Start 05/27/19 at 18:30 Glucagon (Glucagen) 1 mg Q15M PRN IM DECREASED GLUCOSE; Start 05/27/19 at 18:30 Glucose (Glutose) 15 gm Q15M PRN BUCCAL DECREASED GLUCOSE; Start 05/27/19 at 18:30 Insulin Aspart (Novolog Insulin Pen) NOVOLOG *MILD* ALGORI... Q6 SC ; Start 05/30/19 at 03:00 Ergocalciferol (Drisdol) 50,000 unit We PO Last administered on 05/31/19at 09:40; Admin Dose 50,000 UNIT; Start 05/31/19 at 10:00 Metoclopramide HCl (Reglan) 10 mg Q8H PRN IV n/v; Start 05/31/19 at 14:00 Diclofenac Sodium (Voltaren 1% Gel) 4 gm QID TP Last administered on 06/01/19at 12:18; Admin Dose 4 GM; Start 06/01/19 at 13:00 Pamidronate Disodium 30 mg/ Sodium Chloride 500 ml @ 83.333 mls/ hr Q6H ONCE IV Last administered on 06/01/19at 12:18; Admin Dose 83.333 MLS/HR; Start 06/01/19 at 12:30; Stop 06/01/19 at 18:29 KAREN GARNER MD Jun 01, 2019 14:54
[2019-06-01] MEDS: ACETAMINOPHEN 650MG/20.3ML CUP PO PRN (15:38)
[2019-06-01 20:18] VITALS: BP 146/80; PULSE 91; RESP 18
[2019-06-02 02:41] VITALS: BP 148/66; PULSE 94; RESP 18
[2019-06-02] MEDS: VANCOMYCIN HCL 250 MG/5ML POSYG PO SCH ×4 (05:48→23:49)
[2019-06-02] MEDS: INSULIN ASPART [NOVOLOG] 3 ML PEN SC SCH ×4 (05:51→23:54)
[2019-06-02 07:22] VITALS: BP 144/68; PULSE 92; RESP 18
[2019-06-02] MEDS: FAMOTIDINE 20 MG TAB PO SCH ×2 (08:32→20:20)
[2019-06-02] MEDS: NYSTATIN 30 GM POWDER BTL TOP SCH ×2 (08:33→20:20)
[2019-06-02] MEDS: DICLOFENAC SODIUM 1% GEL 100 GM TUBE TP SCH ×4 (08:33→20:20)
--- NOTE | 2019-06-02 08:58 | CONS ---
Assessment/Plan Assessment/Plan Assessment/Plan (Daily) 1. acute hypercalcemia PTH mediated vs Non PTH medicated,vs due to acute pancreatitis - pf failed foraced diuresis so far 2. acute prerenal azotemia 3. Sepsis 2/2 UTI + diarrehea 4. acute pancreatitis 5. h/O HTN 6. H/O HL 7. H/o DM II Plan: S/p Pamidronate 30mg IV x 1 dose on 06/01/19- Ca improved to 11.9, BUN/Cr 34/1.16, other electrolytes stable IV abx Ertapenem 1 gram I Vdaily for UTI, urine cx pending , PO vancomycin for Cldifficle associated diarrhea PTH 6.0, Vitamin D 1,25(OH) level is 12.8, Uric acid 6.8- will follow up Consultation Date/Type/Reason Admit Date/Time May 22, 2019 at 19:22 Initial Consult Date 05/28/19 Type of Consult NEPHROLOGY Requesting Provider: LINDA BOYLE Date/Time of Note DATE: 06/02/19 TIME: 08:58 24 HR Interval Summary Free Text/Dictation s/p Pamidronate 30mg IV x 1 dose yesterday, today Ca is Exam/Review of Systems Exam Vitals Vital Signs Date Temp Pulse Resp B/P (MAP) Pulse Ox O2 O2 Flow FiO2 Time Delivery Rate 06/02/19 98.5 92 18 144/68 99 Room Air 07:22 (93) Intake and Output 06/01/19 06/01/19 06/02/19 1515:00 23:00 07:00 IntakeIntake Total 500 ml 1240 ml BalanceBalance 500 ml 1240 ml Constitutional: alert Neck: supple, non-tender Respiratory: diminished breath sounds Cardiovascular: regular rate and rhythm Gastrointestinal: soft, non-tender Skin: nl turgor Lymph: nl lymph nodes Results Result Diagram: 06/02/19 0819 06/01/19 0430 Results 24hrs Laboratory Tests Test 06/01/19 12:12 06/01/19 17:04 06/01/19 23:13 06/02/19 05:47 Bedside Glucose 137 148 129 147 Test 06/02/19 08:19 White Blood Count 14.7 H Red Blood Count 3.38 L Hemoglobin 8.6 L Hematocrit 29.1 L Mean Corpuscular 86.1 Volume Mean Corpuscular 25.4 L Hemoglobin Mean Corpuscular 29.6 L Hemoglobin Concent Red Cell 19.8 H Distribution Width Platelet Count 444 H Mean Platelet Volume 9.6 Immature 1.600 H Granulocytes % Neutrophils % 72.6 Lymphocytes % 10.3 L Monocytes % 7.8 Eosinophils % 7.4 H Basophils % 0.3 Nucleated Red Blood 0.0 Cells % Immature 0.240 H Granulocytes # Neutrophils # 10.7 H Lymphocytes # 1.5 Monocytes # 1.2 H Eosinophils # 1.1 H Basophils # 0.0 Nucleated Red Blood 0.0 Cells # Medications Medication Current Medications IV Flush (NS 3 ml) 3 ml PER PROTOCOL IV ; Start 05/22/19 at 21:00 Ondansetron HCl (Zofran Inj) 4 mg Q6H PRN IV NAUSEA/VOMITING Last administered on 05/31/19at 08:26; Admin Dose 4 MG; Start 05/22/19 at 21:00 Albuterol/ Ipratropium (Duoneb) 3 ml Q2H RESP THERAPY PRN HHN SHORTNESS OF BREATH; Start 05/22/19 at 21:00 Nystatin (Nystatin Powder) 1 applic BID TOP Last administered on 06/02/19at 08:33; Admin Dose 1 APPLIC; Start 05/23/19 at 21:00 Vancomycin HCl (Vancomycin Oral Syringe) 250 mg Q6 PO Last administered on 06/02/19at 05:48; Admin Dose 250 MG; Start 05/23/19 at 16:00 Hydralazine HCl (Apresoline) 10 mg Q4H PRN IV sbp >160; Start 05/23/19 at 14:30 Acetaminophen (Tylenol Liquid) 650 mg Q6H PRN PO MILD PAIN(1-3)OR ELEVATED TEMP Last administered on 06/01/19at 15:38; Admin Dose 650 MG; Start 05/24/19 at 21:20 Famotidine (Pepcid) 20 mg BID PO Last administered on 06/02/19at 08:32; Admin Dose 20 MG; Start 05/26/19 at 21:00 Miscellaneous Information 1 ea NOTE XX ; Start 05/27/19 at 18:30 Glucose (Glutose) 15 gm Q15M PRN PO DECREASED GLUCOSE; Start 05/27/19 at 18:30 Glucose (Glutose) 22.5 gm Q15M PRN PO DECREASED GLUCOSE; Start 05/27/19 at 18:30 Dextrose (D50w Syringe) 25 ml Q15M PRN IV DECREASED GLUCOSE; Start 05/27/19 at 18:30 Dextrose (D50w Syringe) 50 ml Q15M PRN IV DECREASED GLUCOSE; Start 05/27/19 at 18:30 Glucagon (Glucagen) 1 mg Q15M PRN IM DECREASED GLUCOSE; Start 05/27/19 at 18:30 Glucose (Glutose) 15 gm Q15M PRN BUCCAL DECREASED GLUCOSE; Start 05/27/19 at 18:30 Insulin Aspart (Novolog Insulin Pen) NOVOLOG *MILD* ALGORI... Q6 SC ; Start 05/30/19 at 03:00 Ergocalciferol (Drisdol) 50,000 unit We PO Last administered on 05/31/19at 09:40; Admin Dose 50,000 UNIT; Start 05/31/19 at 10:00 Metoclopramide HCl (Reglan) 10 mg Q8H PRN IV n/v; Start 05/31/19 at 14:00 Diclofenac Sodium (Voltaren 1% Gel) 4 gm QID TP Last administered on 06/02/19at 08:33; Admin Dose 4 GM; Start 06/01/19 at 13:00 URIEL LAWSON MD Jun 02, 2019 08:58
--- NOTE | 2019-06-02 11:39 | CONS ---
Assessment/Plan Assessment/Plan Hospital Course (Demo Recall) SUBJECTIVE: No acute changes looks comfortable Urine culture + gnr Chest x-ray from yesterday revealed no focal consolidation ANTIMICROBIALS: Oral vancomycin. INDWELLINGS: PEG. PHYSICAL EXAMINATION: GENERAL: This is a chronically ill-appearing, elderly woman who is awake, in no distress. HEENT: Head atraumatic, normocephalic. NECK: Supple. CHEST: Rise symmetrical. Breath sounds clear, diminished to bases. HEART: S1, S2. ABDOMEN: Soft, bowel sounds present. ASSESSMENT: 1. Systemic inflammatory response syndrome. 2. Clostridium difficile colitis. 3. Status post urinary tract infection. 4. Diabetes. 5. Hypertension. 6. KENNY PLAN: Stable, will start Invanz, await for urine cx Consultation Date/Type/Reason Admit Date/Time May 22, 2019 at 19:22 Initial Consult Date 05/23/19 Type of Consult id Requesting Provider: LINDA BOYLE Date/Time of Note DATE: 06/02/19 TIME: 11:38 Exam/Review of Systems Exam Vitals Vital Signs Date Temp Pulse Resp B/P (MAP) Pulse Ox O2 O2 Flow FiO2 Time Delivery Rate 06/02/19 98.5 92 18 144/68 99 Room Air 07:22 (93) Intake and Output 06/01/19 06/01/19 06/02/19 1515:00 23:00 07:00 IntakeIntake Total 500 ml 1240 ml BalanceBalance 500 ml 1240 ml Results Result Diagram: 06/02/19 0819 06/02/19 0819 Results 24hrs Laboratory Tests Test 06/01/19 12:12 06/01/19 17:04 06/01/19 23:13 06/02/19 05:47 Bedside Glucose 137 148 129 147 Test 06/02/19 08:19 White Blood Count 14.7 H Red Blood Count 3.38 L Hemoglobin 8.6 L Hematocrit 29.1 L Mean Corpuscular 86.1 Volume Mean Corpuscular 25.4 L Hemoglobin Mean Corpuscular 29.6 L Hemoglobin Concent Red Cell 19.8 H Distribution Width Platelet Count 444 H Mean Platelet Volume 9.6 Immature 1.600 H Granulocytes % Neutrophils % 72.6 Lymphocytes % 10.3 L Monocytes % 7.8 Eosinophils % 7.4 H Basophils % 0.3 Nucleated Red Blood 0.0 Cells % Immature 0.240 H Granulocytes # Neutrophils # 10.7 H Lymphocytes # 1.5 Monocytes # 1.2 H Eosinophils # 1.1 H Basophils # 0.0 Nucleated Red Blood 0.0 Cells # Sodium Level 135 Potassium Level 4.0 Chloride Level 101 Carbon Dioxide Level 27 Anion Gap 7 Blood Urea Nitrogen 34 H Creatinine 1.16 H Glucose Level 139 Calcium Level 11.9 H Phosphorus Level 3.9 Magnesium Level 1.8 Albumin 2.9 L Medications Medication Current Medications IV Flush (NS 3 ml) 3 ml PER PROTOCOL IV ; Start 05/22/19 at 21:00 Ondansetron HCl (Zofran Inj) 4 mg Q6H PRN IV NAUSEA/VOMITING Last administered on 05/31/19at 08:26; Admin Dose 4 MG; Start 05/22/19 at 21:00 Albuterol/ Ipratropium (Duoneb) 3 ml Q2H RESP THERAPY PRN HHN SHORTNESS OF BREATH; Start 05/22/19 at 21:00 Nystatin (Nystatin Powder) 1 applic BID TOP Last administered on 06/02/19at 08:33; Admin Dose 1 APPLIC; Start 05/23/19 at 21:00 Vancomycin HCl (Vancomycin Oral Syringe) 250 mg Q6 PO Last administered on 06/02/19at 05:48; Admin Dose 250 MG; Start 05/23/19 at 16:00 Hydralazine HCl (Apresoline) 10 mg Q4H PRN IV sbp >160; Start 05/23/19 at 14:30 Acetaminophen (Tylenol Liquid) 650 mg Q6H PRN PO MILD PAIN(1-3)OR ELEVATED TEMP Last administered on 06/01/19at 15:38; Admin Dose 650 MG; Start 05/24/19 at 21:20 Famotidine (Pepcid) 20 mg BID PO Last administered on 06/02/19at 08:32; Admin Dose 20 MG; Start 05/26/19 at 21:00 Miscellaneous Information 1 ea NOTE XX ; Start 05/27/19 at 18:30 Glucose (Glutose) 15 gm Q15M PRN PO DECREASED GLUCOSE; Start 05/27/19 at 18:30 Glucose (Glutose) 22.5 gm Q15M PRN PO DECREASED GLUCOSE; Start 05/27/19 at 18:30 Dextrose (D50w Syringe) 25 ml Q15M PRN IV DECREASED GLUCOSE; Start 05/27/19 at 18:30 Dextrose (D50w Syringe) 50 ml Q15M PRN IV DECREASED GLUCOSE; Start 05/27/19 at 18:30 Glucagon (Glucagen) 1 mg Q15M PRN IM DECREASED GLUCOSE; Start 05/27/19 at 18:30 Glucose (Glutose) 15 gm Q15M PRN BUCCAL DECREASED GLUCOSE; Start 05/27/19 at 18:30 Insulin Aspart (Novolog Insulin Pen) NOVOLOG *MILD* ALGORI... Q6 SC ; Start 05/30/19 at 03:00 Ergocalciferol (Drisdol) 50,000 unit We PO Last administered on 05/31/19at 09:40; Admin Dose 50,000 UNIT; Start 05/31/19 at 10:00 Metoclopramide HCl (Reglan) 10 mg Q8H PRN IV n/v; Start 05/31/19 at 14:00 Diclofenac Sodium (Voltaren 1% Gel) 4 gm QID TP Last administered on 06/02/19at 08:33; Admin Dose 4 GM; Start 06/01/19 at 13:00 Ertapenem 1 gm/ Sodium Chloride 100 ml @ 200 mls/hr Q24H IVPB ; Start 06/02/19 at 12:00 ANA MARIA ZULETA NP Jun 02, 2019 11:39
[2019-06-02] MEDS: ERTAPENEM SODIUM 1 GM in SOD CHLORIDE 0.9% 100 ML IVPB SCH (12:45)
[2019-06-02 14:00] VITALS: BP 142/66; PULSE 86; RESP 18
--- NOTE | 2019-06-02 14:26 | PN ---
Date/Time of Note Date/Time of Note DATE: 06/02/19 TIME: 14:23 Assessment/Plan VTE Prophylaxis Risk score (from Ns)>0 risk: 2 SCD applied (from Ns): Yes Pharmacological prophylaxis: other Lines/Catheters IV Catheter Type (from Nrsg): Peripheral IV Urinary Cath still in place: No Assessment/Plan Assessment/Plan 1. Hypercalcemia - improved this am after given Pamidronate and once Ca levels closer to 10 will d/c home - Nephrology consultation appreciated. 2. KENNY- improving - Nephrology on board - encouraged PO hydration 3. C. difficile colitis- resolved - ID on board and appreciate recommendations. Repeat cdiff negative 4. Acute pancreatitis - resolving - continue PEG feeding and PO as tolerated 5. Persistent nausea - GI on board and appreciate recommendation. Continue on Reglan - continue current medications and monitor for improvement 6. 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 Osteoarthritis - Voltaren for knees bilaterally - encouraged bed mobility with physical therapy 8. Disposition - Once Ca at 10 or less and diarrhea resolves, will d/c home Result Diagram: 06/02/1981806/02/1919 Results 24hrs Laboratory Tests Test 06/01/19 17:04 06/01/19 23:13 06/02/19 05:47 06/02/19 08:19 Bedside Glucose 148 129 147 White Blood Count 14.7 H Red Blood Count 3.38 L Hemoglobin 8.6 L Hematocrit 29.1 L Mean Corpuscular 86.1 Volume Mean Corpuscular 25.4 L Hemoglobin Mean Corpuscular 29.6 L Hemoglobin Concent Red Cell 19.8 H Distribution Width Platelet Count 444 H Mean Platelet Volume 9.6 Immature 1.600 H Granulocytes % Neutrophils % 72.6 Lymphocytes % 10.3 L Monocytes % 7.8 Eosinophils % 7.4 H Basophils % 0.3 Nucleated Red Blood 0.0 Cells % Immature 0.240 H Granulocytes # Neutrophils # 10.7 H Lymphocytes # 1.5 Monocytes # 1.2 H Eosinophils # 1.1 H Basophils # 0.0 Nucleated Red Blood 0.0 Cells # Sodium Level 135 Potassium Level 4.0 Chloride Level 101 Carbon Dioxide Level 27 Anion Gap 7 Blood Urea Nitrogen 34 H Creatinine 1.16 H Glucose Level 139 Calcium Level 11.9 H Phosphorus Level 3.9 Magnesium Level 1.8 Albumin 2.9 L Test 06/02/19 12:08 Bedside Glucose 146 Subjective 24 Hr Interval Summary Free Text/Dictation Patient still with loose stool and she thinks its from the antibiotic given to her for cdiff. Refused PT this am given soreness after yesterdays session. Exam/Review of Systems Exam Vitals Vital Signs Date Temp Pulse Resp B/P (MAP) Pulse Ox O2 O2 Flow FiO2 Time Delivery Rate 06/02/19 98.2 86 18 142/66 98 Room Air 14:00 (91) Intake and Output 06/01/19 06/01/19 06/02/19 1515:00 23:00 07:00 IntakeIntake Total 500 ml 1240 ml BalanceBalance 500 ml 1240 ml Exam General: Patient is laying in bed. no acute distress Neck: Supple, nontender, midline Respiratory: Clear to auscultation bilaterally. no wheezing or rhonchi Cardiovascular: regular rate and rhythm, no obvious murmurs Gastrointestinal: soft, nontender to palpation, PEG in place, bowel sounds heard. ext: Moves all extremities spontaneously. no edema Results Results 24hrs Laboratory Tests Test 06/01/19 17:04 06/01/19 23:13 06/02/19 05:47 06/02/19 08:19 Bedside Glucose 148 129 147 White Blood Count 14.7 H Red Blood Count 3.38 L Hemoglobin 8.6 L Hematocrit 29.1 L Mean Corpuscular 86.1 Volume Mean Corpuscular 25.4 L Hemoglobin Mean Corpuscular 29.6 L Hemoglobin Concent Red Cell 19.8 H Distribution Width Platelet Count 444 H Mean Platelet Volume 9.6 Immature 1.600 H Granulocytes % Neutrophils % 72.6 Lymphocytes % 10.3 L Monocytes % 7.8 Eosinophils % 7.4 H Basophils % 0.3 Nucleated Red Blood 0.0 Cells % Immature 0.240 H Granulocytes # Neutrophils # 10.7 H Lymphocytes # 1.5 Monocytes # 1.2 H Eosinophils # 1.1 H Basophils # 0.0 Nucleated Red Blood 0.0 Cells # Sodium Level 135 Potassium Level 4.0 Chloride Level 101 Carbon Dioxide Level 27 Anion Gap 7 Blood Urea Nitrogen 34 H Creatinine 1.16 H Glucose Level 139 Calcium Level 11.9 H Phosphorus Level 3.9 Magnesium Level 1.8 Albumin 2.9 L Test 06/02/19 12:08 Bedside Glucose 146 Medications Medication Current Medications IV Flush (NS 3 ml) 3 ml PER PROTOCOL IV ; Start 05/22/19 at 21:00 Ondansetron HCl (Zofran Inj) 4 mg Q6H PRN IV NAUSEA/VOMITING Last administered on 05/31/19at 08:26; Admin Dose 4 MG; Start 05/22/19 at 21:00 Albuterol/ Ipratropium (Duoneb) 3 ml Q2H RESP THERAPY PRN HHN SHORTNESS OF BREATH; Start 05/22/19 at 21:00 Nystatin (Nystatin Powder) 1 applic BID TOP Last administered on 06/02/19at 08:33; Admin Dose 1 APPLIC; Start 05/23/19 at 21:00 Vancomycin HCl (Vancomycin Oral Syringe) 250 mg Q6 PO Last administered on 06/02/19at 12:09; Admin Dose 250 MG; Start 05/23/19 at 16:00 Hydralazine HCl (Apresoline) 10 mg Q4H PRN IV sbp >160; Start 05/23/19 at 14:30 Acetaminophen (Tylenol Liquid) 650 mg Q6H PRN PO MILD PAIN(1-3)OR ELEVATED TEMP Last administered on 06/01/19at 15:38; Admin Dose 650 MG; Start 05/24/19 at 21:20 Famotidine (Pepcid) 20 mg BID PO Last administered on 06/02/19at 08:32; Admin Dose 20 MG; Start 05/26/19 at 21:00 Miscellaneous Information 1 ea NOTE XX ; Start 05/27/19 at 18:30 Glucose (Glutose) 15 gm Q15M PRN PO DECREASED GLUCOSE; Start 05/27/19 at 18:30 Glucose (Glutose) 22.5 gm Q15M PRN PO DECREASED GLUCOSE; Start 05/27/19 at 18:30 Dextrose (D50w Syringe) 25 ml Q15M PRN IV DECREASED GLUCOSE; Start 05/27/19 at 18:30 Dextrose (D50w Syringe) 50 ml Q15M PRN IV DECREASED GLUCOSE; Start 05/27/19 at 18:30 Glucagon (Glucagen) 1 mg Q15M PRN IM DECREASED GLUCOSE; Start 05/27/19 at 18:30 Glucose (Glutose) 15 gm Q15M PRN BUCCAL DECREASED GLUCOSE; Start 05/27/19 at 18:30 Insulin Aspart (Novolog Insulin Pen) NOVOLOG *MILD* ALGORI... Q6 SC ; Start 05/30/19 at 03:00 Ergocalciferol (Drisdol) 50,000 unit We PO Last administered on 05/31/19at 09:40; Admin Dose 50,000 UNIT; Start 05/31/19 at 10:00 Metoclopramide HCl (Reglan) 10 mg Q8H PRN IV n/v Last administered on 06/02/19at 12:09; Admin Dose 10 MG; Start 05/31/19 at 14:00 Diclofenac Sodium (Voltaren 1% Gel) 4 gm QID TP Last administered on 06/02/19at 12:46; Admin Dose 4 GM; Start 06/01/19 at 13:00 Ertapenem 1 gm/ Sodium Chloride 100 ml @ 200 mls/hr Q24H IVPB Last administered on 06/02/19at 12:45; Admin Dose 200 MLS/HR; Start 06/02/19 at 12:00 KAREN GARNER MD Jun 02, 2019 14:26
[2019-06-02 20:17] VITALS: BP 128/59; PULSE 88; RESP 18
[2019-06-03 02:17] VITALS: BP 139/77; PULSE 94; RESP 18
[2019-06-03] MEDS: VANCOMYCIN HCL 250 MG/5ML POSYG PO SCH ×4 (05:43→23:33)
[2019-06-03] MEDS: INSULIN ASPART [NOVOLOG] 3 ML PEN SC SCH ×4 (05:45→23:40)
[2019-06-03 07:29] VITALS: BP 156/66; PULSE 82; RESP 18
[2019-06-03] MEDS: NYSTATIN 30 GM POWDER BTL TOP SCH ×2 (07:56→20:27)
[2019-06-03] MEDS: DICLOFENAC SODIUM 1% GEL 100 GM TUBE TP SCH ×4 (07:56→20:27)
[2019-06-03] MEDS: FAMOTIDINE 20 MG TAB PO SCH ×2 (07:56→20:23)
[2019-06-03] MEDS: ACETAMINOPHEN 650MG/20.3ML CUP PO PRN (09:21)
[2019-06-03] MEDS: ERTAPENEM SODIUM 1 GM in SOD CHLORIDE 0.9% 100 ML IVPB SCH (11:08)
[2019-06-03] MEDS ORDERED: FLUCONAZOLE 100 MG TAB PO ONE (12:00)
--- NOTE | 2019-06-03 12:38 | CONS ---
Consultation Date/Type/Reason Admit Date/Time May 22, 2019 at 19:22 Initial Consult Date SUBJECTIVE: Pt is resting in bed, looks comfortable, tolerating PEG feedings. NO fevers. VS: stable T: 98.1 LABS: Reviewed. WBC is increased today. 16.2. MICROBILOGY: Urine culture + gnr URINE CULTURE Final Organism 1 PSEUDOMONAS AERUGINOSA COLONY COUNT 30,000 - 40,000 CFU/ml Organism 2 ELYSSA ALBICANS COLONY COUNT <10,000 CFU/ml P.AERUG M.I.C. RX --------- --- AMIKACIN 4 S AZTREONAM S CEFEPIME 8 S CEFTAZIDIME 4 S CIPROFLOXACIN <=0.25 S GENTAMICIN 4 S LEVOFLOXACIN 1 S TOBRAMYCIN <=1 S PIPERACILLIN/TAZOBACTAM 8 S Chest x-ray from yesterday revealed no focal consolidation ANTIMICROBIALS: Oral vancomycin, Invanz, Cipro PO, Diflucan. INDWELLINGS: PEG. PHYSICAL EXAMINATION: GENERAL: This is a chronically ill-appearing, elderly woman who is awake, in no distress. HEENT: Head atraumatic, normocephalic. NECK: Supple. CHEST: Rise symmetrical. Breath sounds clear, diminished to bases. HEART: S1, S2. ABDOMEN: Soft, bowel sounds present. ASSESSMENT: 1. Systemic inflammatory response syndrome. 2. Clostridium difficile colitis. 3. Status post urinary tract infection. 4. Diabetes. 5. Hypertension. 6. KENNY PLAN: Pt is stable. Continue current antbx treatment, short treatment x3 days. Will D/c Diflucan and D/C Invanz today. Final UA Cx. noted. Requesting Provider: LINDA BOYLE Date/Time of Note DATE: 06/03/19 TIME: 12:33 Exam/Review of Systems Exam Vitals Vital Signs Date Temp Pulse Resp B/P (MAP) Pulse Ox O2 O2 Flow FiO2 Time Delivery Rate 06/03/19 98.1 82 18 156/66 99 07:29 (96) 06/03/19 Room Air 02:17 Intake and Output 06/02/19 06/02/19 06/03/19 1515:00 23:00 07:00 IntakeIntake Total 100 ml 400 ml 1000 ml BalanceBalance 100 ml 400 ml 1000 ml Results Result Diagram: 06/03/19 0453 06/03/19 0453 Results 24hrs Laboratory Tests Test 06/02/19 17:27 06/02/19 23:50 06/03/19 04:53 06/03/19 05:41 Bedside Glucose 148 147 182 White Blood Count 16.2 H Red Blood Count 3.21 L Hemoglobin 8.5 L Hematocrit 27.5 L Mean Corpuscular 85.7 Volume Mean Corpuscular 26.5 L Hemoglobin Mean Corpuscular 30.9 L Hemoglobin Concent Red Cell 19.4 H Distribution Width Platelet Count 429 H Mean Platelet Volume 10.4 Immature 1.900 H Granulocytes % Neutrophils % 70.8 Lymphocytes % 12.6 L Monocytes % 7.5 Eosinophils % 6.7 Basophils % 0.5 Nucleated Red Blood 0.0 Cells % Immature 0.300 H Granulocytes # Neutrophils # 11.4 H Lymphocytes # 2.0 Monocytes # 1.2 H Eosinophils # 1.1 H Basophils # 0.1 Nucleated Red Blood 0.0 Cells # Sodium Level 136 Potassium Level 4.2 Chloride Level 103 Carbon Dioxide Level 26 Anion Gap 7 Blood Urea Nitrogen 33 H Creatinine 1.14 H Glucose Level 150 Calcium Level 11.1 H Phosphorus Level 3.5 Magnesium Level 1.8 Albumin 2.8 L Test 06/03/19 11:16 Bedside Glucose 140 Medications Medication Current Medications IV Flush (NS 3 ml) 3 ml PER PROTOCOL IV ; Start 05/22/19 at 21:00 Ondansetron HCl (Zofran Inj) 4 mg Q6H PRN IV NAUSEA/VOMITING Last administered on 05/31/19at 08:26; Admin Dose 4 MG; Start 05/22/19 at 21:00 Albuterol/ Ipratropium (Duoneb) 3 ml Q2H RESP THERAPY PRN HHN SHORTNESS OF BREATH; Start 05/22/19 at 21:00 Nystatin (Nystatin Powder) 1 applic BID TOP Last administered on 06/03/19at 07:56; Admin Dose 1 APPLIC; Start 05/23/19 at 21:00 Vancomycin HCl (Vancomycin Oral Syringe) 250 mg Q6 PO Last administered on 06/03/19at 11:08; Admin Dose 250 MG; Start 05/23/19 at 16:00 Hydralazine HCl (Apresoline) 10 mg Q4H PRN IV sbp >160; Start 05/23/19 at 14:30 Acetaminophen (Tylenol Liquid) 650 mg Q6H PRN PO MILD PAIN(1-3)OR ELEVATED TEMP Last administered on 06/03/19at 09:21; Admin Dose 650 MG; Start 05/24/19 at 21:20 Famotidine (Pepcid) 20 mg BID PO Last administered on 06/03/19at 07:56; Admin Dose 20 MG; Start 05/26/19 at 21:00 Miscellaneous Information 1 ea NOTE XX ; Start 05/27/19 at 18:30 Glucose (Glutose) 15 gm Q15M PRN PO DECREASED GLUCOSE; Start 05/27/19 at 18:30 Glucose (Glutose) 22.5 gm Q15M PRN PO DECREASED GLUCOSE; Start 05/27/19 at 18:30 Dextrose (D50w Syringe) 25 ml Q15M PRN IV DECREASED GLUCOSE; Start 05/27/19 at 18:30 Dextrose (D50w Syringe) 50 ml Q15M PRN IV DECREASED GLUCOSE; Start 05/27/19 at 18:30 Glucagon (Glucagen) 1 mg Q15M PRN IM DECREASED GLUCOSE; Start 05/27/19 at 18:30 Glucose (Glutose) 15 gm Q15M PRN BUCCAL DECREASED GLUCOSE; Start 05/27/19 at 18:30 Insulin Aspart (Novolog Insulin Pen) NOVOLOG *MILD* ALGORI... Q6 SC Last admini stered on 06/03/19at 05:45; Admin Dose 2 UNIT; Start 05/30/19 at 03:00 Ergocalciferol (Drisdol) 50,000 unit We PO Last administered on 05/31/19at 09:40; Admin Dose 50,000 UNIT; Start 05/31/19 at 10:00 Metoclopramide HCl (Reglan) 10 mg Q8H PRN IV n/v Last administered on 06/02/19at 12:09; Admin Dose 10 MG; Start 05/31/19 at 14:00 Diclofenac Sodium (Voltaren 1% Gel) 4 gm QID TP Last administered on 06/03/19at 11:08; Admin Dose 4 GM; Start 06/01/19 at 13:00 Ciprofloxacin (Cipro) 500 mg BID@,18 PO ; Start 06/03/19 at 18:00; Stop 06/06/19 at 06:00 JERRY RAMEY Jun 03, 2019 12:38
--- NOTE | 2019-06-03 13:15 | PN ---
Date/Time of Note Date/Time of Note DATE: 06/03/19 TIME: 13:15 Assessment/Plan VTE Prophylaxis Risk score (from Nsg)>0 risk: 2 SCD applied (from Nsg): Yes Pharmacological prophylaxis: other Lines/Catheters IV Catheter Type (from Nrsg): Peripheral IV Urinary Cath still in place: Yes Reason Cath still needed: pres ulcer contaminated by urine Assessment/Plan Assessment/Plan 1. Hypercalcemia - continues to trend down and once closer to 10 will d/c home - Nephrology consultation appreciated. 2. KENNY- improving - Nephrology on board - encouraged PO hydration 3. C. difficile colitis- resolved - ID on board and appreciate recommendations. Repeat cdiff negative 4. UTI - ID on board and only needs 3 day course of antibiotics 5. Persistent nausea - GI on board and appreciate recommendation. Continue on Reglan - continue current medications and monitor for improvement 6. 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 Osteoarthritis - Voltaren for knees bilaterally - encouraged bed mobility with physical therapy 8. Acute pancreatitis - resolving - continue PEG feeding and PO as tolerated 9. Disposition - Once Ca at 10 or less, will d/c home Result Diagram: 06/03/19 0453 06/03/19 0453 Results 24hrs Laboratory Tests Test 06/02/19 17:27 06/02/19 23:50 06/03/19 04:53 06/03/19 05:41 Bedside Glucose 148 147 182 White Blood Count 16.2 H Red Blood Count 3.21 L Hemoglobin 8.5 L Hematocrit 27.5 L Mean Corpuscular 85.7 Volume Mean Corpuscular 26.5 L Hemoglobin Mean Corpuscular 30.9 L Hemoglobin Concent Red Cell 19.4 H Distribution Width Platelet Count 429 H Mean Platelet Volume 10.4 Immature 1.900 H Granulocytes % Neutrophils % 70.8 Lymphocytes % 12.6 L Monocytes % 7.5 Eosinophils % 6.7 Basophils % 0.5 Nucleated Red Blood 0.0 Cells % Immature 0.300 H Granulocytes # Neutrophils # 11.4 H Lymphocytes # 2.0 Monocytes # 1.2 H Eosinophils # 1.1 H Basophils # 0.1 Nucleated Red Blood 0.0 Cells # Sodium Level 136 Potassium Level 4.2 Chloride Level 103 Carbon Dioxide Level 26 Anion Gap 7 Blood Urea Nitrogen 33 H Creatinine 1.14 H Glucose Level 150 Calcium Level 11.1 H Phosphorus Level 3.5 Magnesium Level 1.8 Albumin 2.8 L Test 06/03/19 11:16 Bedside Glucose 140 Subjective 24 Hr Interval Summary Free Text/Dictation Patient states shes feeling better and no further episodes of diarrhea. Still with diminished appetite but tolerating liquids and meds. Exam/Review of Systems Exam Vitals Vital Signs Date Temp Pulse Resp B/P (MAP) Pulse Ox O2 O2 Flow FiO2 Time Delivery Rate 06/03/19 98.1 82 18 156/66 99 07:29 (96) 06/03/19 Room Air 02:17 Intake and Output 06/02/19 06/02/19 06/03/19 1515:00 23:00 07:00 IntakeIntake Total 100 ml 400 ml 1000 ml BalanceBalance 100 ml 400 ml 1000 ml Exam General: Patient is laying in bed. no acute distress Neck: Supple, nontender, midline Respiratory: Clear to auscultation bilaterally. no wheezing or rhonchi Cardiovascular: regular rate and rhythm, no obvious murmurs Gastrointestinal: soft, nontender to palpation, PEG in place, bowel sounds heard. ext: Moves all extremities spontaneously. no edema Results Results 24hrs Laboratory Tests Test 06/02/19 17:27 06/02/19 23:50 06/03/19 04:53 06/03/19 05:41 Bedside Glucose 148 147 182 White Blood Count 16.2 H Red Blood Count 3.21 L Hemoglobin 8.5 L Hematocrit 27.5 L Mean Corpuscular 85.7 Volume Mean Corpuscular 26.5 L Hemoglobin Mean Corpuscular 30.9 L Hemoglobin Concent Red Cell 19.4 H Distribution Width Platelet Count 429 H Mean Platelet Volume 10.4 Immature 1.900 H Granulocytes % Neutrophils % 70.8 Lymphocytes % 12.6 L Monocytes % 7.5 Eosinophils % 6.7 Basophils % 0.5 Nucleated Red Blood 0.0 Cells % Immature 0.300 H Granulocytes # Neutrophils # 11.4 H Lymphocytes # 2.0 Monocytes # 1.2 H Eosinophils # 1.1 H Basophils # 0.1 Nucleated Red Blood 0.0 Cells # Sodium Level 136 Potassium Level 4.2 Chloride Level 103 Carbon Dioxide Level 26 Anion Gap 7 Blood Urea Nitrogen 33 H Creatinine 1.14 H Glucose Level 150 Calcium Level 11.1 H Phosphorus Level 3.5 Magnesium Level 1.8 Albumin 2.8 L Test 06/03/19 11:16 Bedside Glucose 140 Medications Medication Current Medications IV Flush (NS 3 ml) 3 ml PER PROTOCOL IV ; Start 05/22/19 at 21:00 Ondansetron HCl (Zofran Inj) 4 mg Q6H PRN IV NAUSEA/VOMITING Last administered on 05/31/19at 08:26; Admin Dose 4 MG; Start 05/22/19 at 21:00 Albuterol/ Ipratropium (Duoneb) 3 ml Q2H RESP THERAPY PRN HHN SHORTNESS OF BREATH; Start 05/22/19 at 21:00 Nystatin (Nystatin Powder) 1 applic BID TOP Last administered on 06/03/19at 07:56; Admin Dose 1 APPLIC; Start 05/23/19 at 21:00 Vancomycin HCl (Vancomycin Oral Syringe) 250 mg Q6 PO Last administered on 06/03/19at 11:08; Admin Dose 250 MG; Start 05/23/19 at 16:00 Hydralazine HCl (Apresoline) 10 mg Q4H PRN IV sbp >160; Start 05/23/19 at 14:30 Acetaminophen (Tylenol Liquid) 650 mg Q6H PRN PO MILD PAIN(1-3)OR ELEVATED TEMP Last administered on 06/03/19at 09:21; Admin Dose 650 MG; Start 05/24/19 at 21:20 Famotidine (Pepcid) 20 mg BID PO Last administered on 06/03/19at 07:56; Admin Dose 20 MG; Start 05/26/19 at 21:00 Miscellaneous Information 1 ea NOTE XX ; Start 05/27/19 at 18:30 Glucose (Glutose) 15 gm Q15M PRN PO DECREASED GLUCOSE; Start 05/27/19 at 18:30 Glucose (Glutose) 22.5 gm Q15M PRN PO DECREASED GLUCOSE; Start 05/27/19 at 18:30 Dextrose (D50w Syringe) 25 ml Q15M PRN IV DECREASED GLUCOSE; Start 05/27/19 at 18:30 Dextrose (D50w Syringe) 50 ml Q15M PRN IV DECREASED GLUCOSE; Start 05/27/19 at 18:30 Glucagon (Glucagen) 1 mg Q15M PRN IM DECREASED GLUCOSE; Start 05/27/19 at 18:30 Glucose (Glutose) 15 gm Q15M PRN BUCCAL DECREASED GLUCOSE; Start 05/27/19 at 18:30 Insulin Aspart (Novolog Insulin Pen) NOVOLOG *MILD* ALGORI... Q6 SC Last administered on 06/03/19at 05:45; Admin Dose 2 UNIT; Start 05/30/19 at 03:00 Ergocalciferol (Drisdol) 50,000 unit We PO Last administered on 05/31/19at 09:40; Admin Dose 50,000 UNIT; Start 05/31/19 at 10:00 Metoclopramide HCl (Reglan) 10 mg Q8H PRN IV n/v Last administered on 06/02/19at 12:09; Admin Dose 10 MG; Start 05/31/19 at 14:00 Diclofenac Sodium (Voltaren 1% Gel) 4 gm QID TP Last administered on 06/03/19at 11:08; Admin Dose 4 GM; Start 06/01/19 at 13:00 Ciprofloxacin (Cipro) 500 mg BID@,18 PO ; Start 06/03/19 at 18:00; Stop 06/06/19 at 06:00 KAREN GARNER MD Jun 03, 2019 13:15
[2019-06-03 14:00] VITALS: BP 125/66; PULSE 85; RESP 18
[2019-06-03] MEDS: CIPROFLOXACIN 500 MG TAB PO SCH (17:09)
--- NOTE | 2019-06-03 18:59 | CONS ---
Assessment/Plan Assessment/Plan Assessment/Plan (Daily) 1. acute hypercalcemia PTH mediated vs Non PTH medicated,vs due to acute pancreatitis - pf failed foraced diuresis so far 2. acute prerenal azotemia 3. Sepsis 2/2 UTI + diarrehea 4. acute pancreatitis 5. h/O HTN 6. H/O HL 7. H/o DM II Plan: S/p Pamidronate 30mg IV x 1 dose on 06/01/19- Ca improved to 11.1, BUN/Cr 33/1.14 , other electrolytes stable IV abx Ertapenem 1 gram I Vdaily for UTI, urine cx pending , PO vancomycin for Cldifficle associated diarrhea PTH 6.0, Vitamin D 1,25(OH) level is 12.8, Uric acid 6.8- Patient is seen in collaboration with DR Edgardo Jolly. Plan of care dw staff. We will follow up. nad afebrile; resting in bed ; denies any complaints Ca improved to 11.1, BUN/Cr 33/1.14 no events overnight dw staff Consultation Date/Type/Reason Admit Date/Time May 22, 2019 at 19:22 Initial Consult Date 05/28/19 Type of Consult NEPHROLOGY Reason for Consultation HYPERCALCEMIA Requesting Provider: LINDA BOYLE Date/Time of Note DATE: 06/03/19 TIME: 18:58 24 HR Interval Summary Free Text/Dictation nad afebrile; resting in bed ; denies any complaints Ca improved to 11.1, BUN/Cr 33/1.14 no events overnight dw staff Detailed Summary Eyes: no complaints ENT: no complaints Respiratory: no complaints Cardiovascular: no complaints Gastrointestinal: no complaints Genitourinary: no complaints Musculoskeletal: no complaints Skin: no complaints Neurologic: no complaints Endocrine: no complaints Lymphatic: no complaints Psychological: no complaints Immunologic: no complaints Exam/Review of Systems Exam Vitals Vital Signs Date Temp Pulse Resp B/P (MAP) Pulse Ox O2 O2 Flow FiO2 Time Delivery Rate 06/03/19 98.2 85 18 125/66 100 14:00 (85) 06/03/19 Room Air 02:17 Intake and Output 06/02/19 06/02/19 06/03/19 1515:00 23:00 07:00 IntakeIntake Total 100 ml 400 ml 1000 ml BalanceBalance 100 ml 400 ml 1000 ml Results Result Diagram: 06/03/19 0453 06/03/19 0453 Results 24hrs Laboratory Tests Test 06/02/19 23:50 06/03/19 04:53 06/03/19 05:41 06/03/19 11:16 Bedside Glucose 147 182 140 White Blood Count 16.2 H Red Blood Count 3.21 L Hemoglobin 8.5 L Hematocrit 27.5 L Mean Corpuscular 85.7 Volume Mean Corpuscular 26.5 L Hemoglobin Mean Corpuscular 30.9 L Hemoglobin Concent Red Cell 19.4 H Distribution Width Platelet Count 429 H Mean Platelet Volume 10.4 Immature 1.900 H Granulocytes % Neutrophils % 70.8 Lymphocytes % 12.6 L Monocytes % 7.5 Eosinophils % 6.7 Basophils % 0.5 Nucleated Red Blood 0.0 Cells % Immature 0.300 H Granulocytes # Neutrophils # 11.4 H Lymphocytes # 2.0 Monocytes # 1.2 H Eosinophils # 1.1 H Basophils # 0.1 Nucleated Red Blood 0.0 Cells # Sodium Level 136 Potassium Level 4.2 Chloride Level 103 Carbon Dioxide Level 26 Anion Gap 7 Blood Urea Nitrogen 33 H Creatinine 1.14 H Glucose Level 150 Calcium Level 11.1 H Phosphorus Level 3.5 Magnesium Level 1.8 Albumin 2.8 L Test 06/03/19 17:07 Bedside Glucose 154 Medications Medication Current Medications IV Flush (NS 3 ml) 3 ml PER PROTOCOL IV ; Start 05/22/19 at 21:00 Ondansetron HCl (Zofran Inj) 4 mg Q6H PRN IV NAUSEA/VOMITING Last administered on 05/31/19at 08:26; Admin Dose 4 MG; Start 05/22/19 at 21:00 Albuterol/ Ipratropium (Duoneb) 3 ml Q2H RESP THERAPY PRN HHN SHORTNESS OF BREATH; Start 05/22/19 at 21:00 Nystatin (Nystatin Powder) 1 applic BID TOP Last administered on 06/03/19at 07:56; Admin Dose 1 APPLIC; Start 05/23/19 at 21:00 Vancomycin HCl (Vancomycin Oral Syringe) 250 mg Q6 PO Last administered on 06/03/19at 17:09; Admin Dose 250 MG; Start 05/23/19 at 16:00 Hydralazine HCl (Apresoline) 10 mg Q4H PRN IV sbp >160; Start 05/23/19 at 14:30 Acetaminophen (Tylenol Liquid) 650 mg Q6H PRN PO MILD PAIN(1-3)OR ELEVATED TEMP Last administered on 06/03/19at 09:21; Admin Dose 650 MG; Start 05/24/19 at 21:20 Famotidine (Pepcid) 20 mg BID PO Last administered on 06/03/19at 07:56; Admin Dose 20 MG; Start 05/26/19 at 21:00 Miscellaneous Information 1 ea NOTE XX ; Start 05/27/19 at 18:30 Glucose (Glutose) 15 gm Q15M PRN PO DECREASED GLUCOSE; Start 05/27/19 at 18:30 Glucose (Glutose) 22.5 gm Q15M PRN PO DECREASED GLUCOSE; Start 05/27/19 at 18:30 Dextrose (D50w Syringe) 25 ml Q15M PRN IV DECREASED GLUCOSE; Start 05/27/19 at 18:30 Dextrose (D50w Syringe) 50 ml Q15M PRN IV DECREASED GLUCOSE; Start 05/27/19 at 18:30 Glucagon (Glucagen) 1 mg Q15M PRN IM DECREASED GLUCOSE; Start 05/27/19 at 18:30 Glucose (Glutose) 15 gm Q15M PRN BUCCAL DECREASED GLUCOSE; Start 05/27/19 at 18:30 Insulin Aspart (Novolog Insulin Pen) NOVOLOG *MILD* ALGORI... Q6 SC Last administered on 06/03/19at 05:45; Admin Dose 2 UNIT; Start 05/30/19 at 03:00 Ergocalciferol (Drisdol) 50,000 unit We PO Last administered on 05/31/19at 09:40; Admin Dose 50,000 UNIT; Start 05/31/19 at 10:00 Metoclopramide HCl (Reglan) 10 mg Q8H PRN IV n/v Last administered on 06/02/19at 12:09; Admin Dose 10 MG; Start 05/31/19 at 14:00 Diclofenac Sodium (Voltaren 1% Gel) 4 gm QID TP Last administered on 06/03/19at 17:09; Admin Dose 4 GM; Start 06/01/19 at 13:00 Ciprofloxacin (Cipro) 500 mg BID@ PO Last administered on 06/03/19at 17:09; Admin Dose 500 MG; Start 06/03/19 at 18:00; Stop 06/06/19 at 06:00 JOHN HENRY Jun 03, 2019 18:59
[2019-06-03 20:40] VITALS: BP 145/52; PULSE 90; RESP 18
[2019-06-04 02:25] VITALS: BP 114/55; PULSE 85; RESP 16
[2019-06-04] MEDS: VANCOMYCIN HCL 250 MG/5ML POSYG PO SCH ×3 (06:10→17:29)
[2019-06-04] MEDS: CIPROFLOXACIN 500 MG TAB PO SCH ×2 (06:10→17:30)
[2019-06-04] MEDS: INSULIN ASPART [NOVOLOG] 3 ML PEN SC SCH ×3 (06:16→17:39)
[2019-06-04 08:00] VITALS: BP 144/65; PULSE 83; RESP 17
[2019-06-04] MEDS: DICLOFENAC SODIUM 1% GEL 100 GM TUBE TP SCH ×4 (08:53→21:00)
[2019-06-04] MEDS: FAMOTIDINE 20 MG TAB PO SCH ×2 (08:53→20:12)
[2019-06-04] MEDS: NYSTATIN 30 GM POWDER BTL TOP SCH ×2 (08:54→21:00)
[2019-06-04] MEDS ORDERED: MAGNESIUM SULFATE 2 GM/50 ML 50 ML IVPB ONE (09:30)
--- NOTE | 2019-06-04 10:52 | PN ---
Date/Time of Note Date/Time of Note DATE: 06/04/19 TIME: 10:50 Assessment/Plan VTE Prophylaxis Risk score (from Nsg)>0 risk: 4 SCD applied (from Nsg): Yes Pharmacological prophylaxis: other Lines/Catheters IV Catheter Type (from Nrsg): Peripheral IV Urinary Cath still in place: Yes Reason Cath still needed: terminal illness/intractable pain Assessment/Plan Assessment/Plan 1. Hypercalcemia- resolving - Ca 10.3 this am and okay for d/c per Nephrology - Nephrology consultation appreciated. 2. KENNY- improving - Nephrology on board - encouraged PO hydration 3. C. difficile colitis- resolved - ID on board and appreciate recommendations. Repeat cdiff negative 4. UTI - ID on board and only needs 3 day course of antibiotics. Currently on day 2/3 5. Persistent nausea- improved - GI on board and appreciate recommendation. Continue on Reglan - continue current medications and monitor for improvement 6. 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 Osteoarthritis - Voltaren for knees bilaterally - encouraged bed mobility with physical therapy 8. Acute pancreatitis - resolving - continue PEG feeding and PO as tolerated 9. Disposition - Medically stable for discharge home Result Diagram: 06/04/19 0437 06/04/19 0437 Results 24hrs Laboratory Tests Test 06/03/19 11:16 06/03/19 17:07 06/03/19 23:10 06/04/19 04:37 Bedside Glucose 140 154 161 White Blood Count 16.6 H Red Blood Count 3.23 L Hemoglobin 8.5 L Hematocrit 27.8 L Mean Corpuscular 86.1 Volume Mean Corpuscular 26.3 L Hemoglobin Mean Corpuscular 30.6 L Hemoglobin Concent Red Cell 19.4 H Distribution Width Platelet Count 448 H Mean Platelet Volume 10.4 Immature 2.400 H Granulocytes % Neutrophils % 71.2 Lymphocytes % 12.0 L Monocytes % 7.1 Eosinophils % 6.9 Basophils % 0.4 Nucleated Red Blood 0.0 Cells % Immature 0.390 H Granulocytes # Neutrophils # 11.8 H Lymphocytes # 2.0 Monocytes # 1.2 H Eosinophils # 1.2 H Basophils # 0.1 Nucleated Red Blood 0.0 Cells # Sodium Level 132 L Potassium Level 4.3 Chloride Level 101 Carbon Dioxide Level 24 Anion Gap 7 Blood Urea Nitrogen 27 H Creatinine 1.12 H Glucose Level 163 Calcium Level 10.3 H Phosphorus Level 3.3 Magnesium Level 1.7 Albumin 2.9 L Test 06/04/19 06:13 Bedside Glucose 171 Subjective 24 Hr Interval Summary Free Text/Dictation Patient states shes feeling better. No acute overnight events. Only with small amount of loose stool. Exam/Review of Systems Exam Vitals Vital Signs Date Temp Pulse Resp B/P (MAP) Pulse Ox O2 O2 Flow FiO2 Time Delivery Rate 06/04/19 98.8 85 16 114/55 93 Room Air 02:25 (74) Intake and Output 06/03/19 06/03/19 06/04/19 1515:00 23:00 07:00 IntakeIntake Total 500 ml BalanceBalance 500 ml Exam General: Patient is laying in bed. no acute distress Neck: Supple, nontender, midline Respiratory: Clear to auscultation bilaterally. no wheezing or rhonchi Cardiovascular: regular rate and rhythm, no obvious murmurs Gastrointestinal: soft, nontender to palpation, PEG in place, bowel sounds heard. ext: Moves all extremities spontaneously. no edema Results Results 24hrs Laboratory Tests Test 06/03/19 11:16 06/03/19 17:07 06/03/19 23:10 06/04/19 04:37 Bedside Glucose 140 154 161 White Blood Count 16.6 H Red Blood Count 3.23 L Hemoglobin 8.5 L Hematocrit 27.8 L Mean Corpuscular 86.1 Volume Mean Corpuscular 26.3 L Hemoglobin Mean Corpuscular 30.6 L Hemoglobin Concent Red Cell 19.4 H Distribution Width Platelet Count 448 H Mean Platelet Volume 10.4 Immature 2.400 H Granulocytes % Neutrophils % 71.2 Lymphocytes % 12.0 L Monocytes % 7.1 Eosinophils % 6.9 Basophils % 0.4 Nucleated Red Blood 0.0 Cells % Immature 0.390 H Granulocytes # Neutrophils # 11.8 H Lymphocytes # 2.0 Monocytes # 1.2 H Eosinophils # 1.2 H Basophils # 0.1 Nucleated Red Blood 0.0 Cells # Sodium Level 132 L Potassium Level 4.3 Chloride Level 101 Carbon Dioxide Level 24 Anion Gap 7 Blood Urea Nitrogen 27 H Creatinine 1.12 H Glucose Level 163 Calcium Level 10.3 H Phosphorus Level 3.3 Magnesium Level 1.7 Albumin 2.9 L Test 06/04/19 06:13 Bedside Glucose 171 Medications Medication Current Medications IV Flush (NS 3 ml) 3 ml PER PROTOCOL IV ; Start 05/22/19 at 21:00 Ondansetron HCl (Zofran Inj) 4 mg Q6H PRN IV NAUSEA/VOMITING Last administered on 05/31/19at 08:26; Admin Dose 4 MG; Start 05/22/19 at 21:00 Albuterol/ Ipratropium (Duoneb) 3 ml Q2H RESP THERAPY PRN HHN SHORTNESS OF BREATH; Start 05/22/19 at 21:00 Nystatin (Nystatin Powder) 1 applic BID TOP Last administered on 06/04/19at 08:54; Admin Dose 1 APPLIC; Start 05/23/19 at 21:00 Vancomycin HCl (Vancomycin Oral Syringe) 250 mg Q6 PO Last administered on 06/04/19at 06:10; Admin Dose 250 MG; Start 05/23/19 at 16:00 Hydralazine HCl (Apresoline) 10 mg Q4H PRN IV sbp >160; Start 05/23/19 at 14:30 Acetaminophen (Tylenol Liquid) 650 mg Q6H PRN PO MILD PAIN(1-3)OR ELEVATED TEMP Last administered on 06/03/19at 09:21; Admin Dose 650 MG; Start 05/24/19 at 21:20 Famotidine (Pepcid) 20 mg BID PO Last administered on 06/04/19at 08:53; Admin Dose 20 MG; Start 05/26/19 at 21:00 Miscellaneous Information 1 ea NOTE XX ; Start 05/27/19 at 18:30 Glucose (Glutose) 15 gm Q15M PRN PO DECREASED GLUCOSE; Start 05/27/19 at 18:30 Glucose (Glutose) 22.5 gm Q15M PRN PO DECREASED GLUCOSE; Start 05/27/19 at 18:30 Dextrose (D50w Syringe) 25 ml Q15M PRN IV DECREASED GLUCOSE; Start 05/27/19 at 18:30 Dextrose (D50w Syringe) 50 ml Q15M PRN IV DECREASED GLUCOSE; Start 05/27/19 at 18:30 Glucagon (Glucagen) 1 mg Q15M PRN IM DECREASED GLUCOSE; Start 05/27/19 at 18:30 Glucose (Glutose) 15 gm Q15M PRN BUCCAL DECREASED GLUCOSE; Start 05/27/19 at 18:30 Insulin Aspart (Novolog Insulin Pen) NOVOLOG *MILD* ALGORI... Q6 SC Last administered on 06/04/19at 06:16; Admin Dose 1 UNIT; Start 05/30/19 at 03:00 Ergocalciferol (Drisdol) 50,000 unit We PO Last administered on 05/31/19at 09:40; Admin Dose 50,000 UNIT; Start 05/31/19 at 10:00 Metoclopramide HCl (Reglan) 10 mg Q8H PRN IV n/v Last administered on 06/02/19at 12:09; Admin Dose 10 MG; Start 05/31/19 at 14:00 Diclofenac Sodium (Voltaren 1% Gel) 4 gm QID TP Last administered on 06/04/19at 08:53; Admin Dose 4 GM; Start 06/01/19 at 13:00 Ciprofloxacin (Cipro) 500 mg BID@06,18 PO Last administered on 06/04/19at 06:10; Admin Dose 500 MG; Start 06/03/19 at 18:00; Stop 06/06/19 at 06:00 Magnesium Sulfate 50 ml @ 25 mls/hr ONCE ONCE IVPB ; Start 06/04/19 at 09:30; Stop 06/04/19 at 11:29 KAREN GARNER MD Jun 04, 2019 10:52
[2019-06-04] MEDS ORDERED: CIPR500T4 PO (10:56)
[2019-06-04] MEDS ORDERED: VANC250C5 PO (10:56)
[2019-06-04] MEDS ORDERED: FAMO20TA18 PO (10:56)
[2019-06-04] MEDS ORDERED: ERGO500013 PO (10:56)
[2019-06-04] MEDS ORDERED: DICL100G33 TP (10:56)
[2019-06-04] MEDS ORDERED: METO10TA3 PO (10:56)
[2019-06-04] MEDS ORDERED: SOD CHLORIDE 0.9% 500 ML IV ONE (11:00)
--- NOTE | 2019-06-04 11:02 | PDOCDIS ---
Discharge Instructions DIAGNOSIS Discharge Diagnosis 1. Hypercalcemia- resolved 2. Acute renal insufficiency 3. C. difficile colitis- resolved 4. UTI- resolving 5. Dysphasia and chronic nausea 6. Osteoarthritis 7. Acute pancreatitis- improving CONDITION [id number] Patient Condition: [id number] Stable HOME CARE INSTRUCTIONS: [id number] Special Diet: [id number] tube feeds ACTIVITY: [id number] Activity Restrictions: [id number] No Restrictions FOLLOW UP/APPOINTMENTS Follow-up Plan 1. Follow up with your primary care physician in 1-2 weeks 2. Continue antibiotics for another 2 days. You will need to take Vancomycin and Ciprofloxacin for 2 mores. Continue medications as directed 3. Use Voltaren gel on your knees to help with discomfort and pain 4. Try and keep well hydrated and eat as much as you can tolerate. Take Reglan as needed for nausea 5. If experiencing any concerning symptoms. please come back to the emergency department KAREN GARNER MD Jun 04, 2019 11:02
[2019-06-04 14:00] VITALS: BP 129/64; PULSE 89; RESP 15
[2019-06-04] MEDS ORDERED: NST15PW TOP (14:26)
--- NOTE | 2019-06-04 14:26 | CONS ---
Consultation Date/Type/Reason Admit Date/Time May 22, 2019 at 19:22 Initial Consult Date SUBJECTIVE: Pt is resting in bed, looks comfortable. NO fevers. VS: stable T: 98.3 LABS: Reviewed. WBC is increased today. 16.6. MICROBILOGY: Urine culture + gnr URINE CULTURE Final Organism 1 PSEUDOMONAS AERUGINOSA COLONY COUNT 30,000 - 40,000 CFU/ml Organism 2 ELYSSA ALBICANS COLONY COUNT <10,000 CFU/ml P.AERUG M.I.C. RX --------- --- AMIKACIN 4 S AZTREONAM S CEFEPIME 8 S CEFTAZIDIME 4 S CIPROFLOXACIN <=0.25 S GENTAMICIN 4 S LEVOFLOXACIN 1 S TOBRAMYCIN <=1 S PIPERACILLIN/TAZOBACTAM 8 S Chest x-ray from yesterday revealed no focal consolidation ANTIMICROBIALS: Oral vancomycin, Invanz, Cipro PO, Diflucan. INDWELLINGS: PEG. PHYSICAL EXAMINATION: GENERAL: This is a chronically ill-appearing, elderly woman who is awake, in no distress. HEENT: Head atraumatic, normocephalic. NECK: Supple. CHEST: Rise symmetrical. Breath sounds clear, diminished to bases. HEART: S1, S2. ABDOMEN: Soft, bowel sounds present. ASSESSMENT: 1. Systemic inflammatory response syndrome. 2. Clostridium difficile colitis. 3. Status post urinary tract infection. 4. Diabetes. 5. Hypertension. 6. KENNY PLAN: Pt is stable. Continue Cipro x2 more days. Final UA Cx. noted. D/C planning Requesting Provider: LINDA BOYLE Date/Time of Note DATE: 06/04/19 TIME: 14:25 Exam/Review of Systems Exam Vitals Vital Signs Date Temp Pulse Resp B/P (MAP) Pulse Ox O2 O2 Flow FiO2 Time Delivery Rate 06/04/19 98.3 83 17 144/65 100 08:00 (91) 06/04/19 Room Air 02:25 Intake and Output 06/03/19 06/03/19 06/04/19 1515:00 23:00 07:00 IntakeIntake Total 500 ml BalanceBalance 500 ml Results Result Diagram: 06/04/19 0437 06/04/19 0437 Results 24hrs Laboratory Tests Test 06/03/19 17:07 06/03/19 23:10 06/04/19 04:37 06/04/19 06:13 Bedside Glucose 154 161 171 White Blood Count 16.6 H Red Blood Count 3.23 L Hemoglobin 8.5 L Hematocrit 27.8 L Mean Corpuscular 86.1 Volume Mean Corpuscular 26.3 L Hemoglobin Mean Corpuscular 30.6 L Hemoglobin Concent Red Cell 19.4 H Distribution Width Platelet Count 448 H Mean Platelet Volume 10.4 Immature 2.400 H Granulocytes % Neutrophils % 71.2 Lymphocytes % 12.0 L Monocytes % 7.1 Eosinophils % 6.9 Basophils % 0.4 Nucleated Red Blood 0.0 Cells % Immature 0.390 H Granulocytes # Neutrophils # 11.8 H Lymphocytes # 2.0 Monocytes # 1.2 H Eosinophils # 1.2 H Basophils # 0.1 Nucleated Red Blood 0.0 Cells # Sodium Level 132 L Potassium Level 4.3 Chloride Level 101 Carbon Dioxide Level 24 Anion Gap 7 Blood Urea Nitrogen 27 H Creatinine 1.12 H Glucose Level 163 Calcium Level 10.3 H Phosphorus Level 3.3 Magnesium Level 1.7 Albumin 2.9 L Test 06/04/19 12:51 Bedside Glucose 160 Medications Medication Current Medications IV Flush (NS 3 ml) 3 ml PER PROTOCOL IV ; Start 05/22/19 at 21:00 Ondansetron HCl (Zofran Inj) 4 mg Q6H PRN IV NAUSEA/VOMITING Last administered on 05/31/19 08:26; Admin Dose 4 MG; Start 05/22/19 at 21:00 Albuterol/ Ipratropium (Duoneb) 3 ml Q2H RESP THERAPY PRN HHN SHORTNESS OF DEBORAH ATH; Start 05/22/19 at 21:00 Nystatin (Nystatin Powder) 1 applic BID TOP Last administered on 06/04/19at 08:54; Admin Dose 1 APPLIC; Start 05/23/19 at 21:00 Vancomycin HCl (Vancomycin Oral Syringe) 250 mg Q6 PO Last administered on 06/04/19at 12:52; Admin Dose 250 MG; Start 05/23/19 at 16:00 Hydralazine HCl (Apresoline) 10 mg Q4H PRN IV sbp >160; Start 05/23/19 at 14:30 Acetaminophen (Tylenol Liquid) 650 mg Q6H PRN PO MILD PAIN(1-3)OR ELEVATED TEMP Last administered on 06/03/19at 09:21; Admin Dose 650 MG; Start 05/24/19 at 21:20 Famotidine (Pepcid) 20 mg BID PO Last administered on 06/04/19at 08:53; Admin Dose 20 MG; Start 05/26/19 at 21:00 Miscellaneous Information 1 ea NOTE XX ; Start 05/27/19 at 18:30 Glucose (Glutose) 15 gm Q15M PRN PO DECREASED GLUCOSE; Start 05/27/19 at 18:30 Glucose (Glutose) 22.5 gm Q15M PRN PO DECREASED GLUCOSE; Start 05/27/19 at 18:30 Dextrose (D50w Syringe) 25 ml Q15M PRN IV DECREASED GLUCOSE; Start 05/27/19 at 18:30 Dextrose (D50w Syringe) 50 ml Q15M PRN IV DECREASED GLUCOSE; Start 05/27/19 at 18:30 Glucagon (Glucagen) 1 mg Q15M PRN IM DECREASED GLUCOSE; Start 05/27/19 at 18:30 Glucose (Glutose) 15 gm Q15M PRN BUCCAL DECREASED GLUCOSE; Start 05/27/19 at 18:30 Insulin Aspart (Novolog Insulin Pen) NOVOLOG *MILD* ALGORI... Q6 SC Last administered on 06/04/19at 12:53; Admin Dose 1 UNIT; Start 05/30/19 at 03:00 Ergocalciferol (Drisdol) 50,000 unit We PO Last administered on 05/31/19at 09:40; Admin Dose 50,000 UNIT; Start 05/31/19 at 10:00 Metoclopramide HCl (Reglan) 10 mg Q8H PRN IV n/v Last administered on 06/02/19at 12:09; Admin Dose 10 MG; Start 05/31/19 at 14:00 Diclofenac Sodium (Voltaren 1% Gel) 4 gm QID TP Last administered on 06/04/19at 12:55; Admin Dose 4 GM; Start 06/01/19 at 13:00 Ciprofloxacin (Cipro) 500 mg BID@18 PO Last administered on 06/04/19at 06:10; Admin Dose 500 MG; Start 06/03/19 at 18:00; Stop 06/06/19 at 06:00 JERRY RAMEY Jun 04, 2019 14:26
--- NOTE | 2019-06-04 14:54 | CONS ---
Assessment/Plan Assessment/Plan Assessment/Plan (Daily) 1. acute hypercalcemia PTH mediated vs Non PTH medicated,vs due to acute pancreatitis - pf failed foraced diuresis so far 2. acute prerenal azotemia 3. Sepsis 2/2 UTI + diarrehea 4. acute pancreatitis 5. h/O HTN 6. H/O HL 7. H/o DM II Plan: S/p Pamidronate 30mg IV x 1 dose on 06/01/19- Ca improved to 10.3, BUN/Cr 27/1.12 , Na- 132, other electrolytes stable IV abx Ertapenem 1 gram I Vdaily for UTI, urine cx pending , PO vancomycin for Cldifficle associated diarrhea PTH 6.0, Vitamin D 1,25(OH) level is 12.8, Uric acid 6.8- Patient is seen in collaboration with DR Edgardo Jolly. Plan of care dw staff. We will follow up. Consultation Date/Type/Reason Admit Date/Time May 22, 2019 at 19:22 Initial Consult Date 05/28/19 Type of Consult NEPHROLOGY Requesting Provider: LINDA BOYLE Date/Time of Note DATE: 06/04/19 TIME: 14:53 24 HR Interval Summary Free Text/Dictation nad afebrile; resting in bed ; denies any complaints Ca improved to 10.3, BUN/Cr 27/1.12, Na- 132, other electrolytes stable daughter at bed side- all qs answered. no events overnight dw staff Constitutional: improved Detailed Summary Eyes: no complaints ENT: no complaints Respiratory: no complaints Cardiovascular: no complaints Gastrointestinal: no complaints Genitourinary: no complaints Musculoskeletal: no complaints Skin: no complaints Neurologic: no complaints Endocrine: no complaints, polyuria Psychological: nl mood/affect Exam/Review of Systems Exam Vitals Vital Signs Date Temp Pulse Resp B/P (MAP) Pulse Ox O2 O2 Flow FiO2 Time Delivery Rate 06/04/19 98.3 83 17 144/65 100 08:00 (91) 06/04/19 Room Air 02:25 Intake and Output 06/03/19 06/03/19 06/04/19 1515:00 23:00 07:00 IntakeIntake Total 500 ml BalanceBalance 500 ml Results Result Diagram: 06/04/19 0437 06/04/19 0437 Results 24hrs Laboratory Tests Test 06/03/19 17:07 06/03/19 23:10 06/04/19 04:37 06/04/19 06:13 Bedside Glucose 154 161 171 White Blood Count 16.6 H Red Blood Count 3.23 L Hemoglobin 8.5 L Hematocrit 27.8 L Mean Corpuscular 86.1 Volume Mean Corpuscular 26.3 L Hemoglobin Mean Corpuscular 30.6 L Hemoglobin Concent Red Cell 19.4 H Distribution Width Platelet Count 448 H Mean Platelet Volume 10.4 Immature 2.400 H Granulocytes % Neutrophils % 71.2 Lymphocytes % 12.0 L Monocytes % 7.1 Eosinophils % 6.9 Basophils % 0.4 Nucleated Red Blood 0.0 Cells % Immature 0.390 H Granulocytes # Neutrophils # 11.8 H Lymphocytes # 2.0 Monocytes # 1.2 H Eosinophils # 1.2 H Basophils # 0.1 Nucleated Red Blood 0.0 Cells # Sodium Level 132 L Potassium Level 4.3 Chloride Level 101 Carbon Dioxide Level 24 Anion Gap 7 Blood Urea Nitrogen 27 H Creatinine 1.12 H Glucose Level 163 Calcium Level 10.3 H Phosphorus Level 3.3 Magnesium Level 1.7 Albumin 2.9 L Test 06/04/19 12:51 Bedside Glucose 160 Medications Medication Current Medications IV Flush (NS 3 ml) 3 ml PER PROTOCOL IV ; Start 05/22/19 at 21:00 Ondansetron HCl (Zofran Inj) 4 mg Q6H PRN IV NAUSEA/VOMITING Last administered on 05/31/19at 08:26; Admin Dose 4 MG; Start 05/22/19 at 21:00 Albuterol/ Ipratropium (Duoneb) 3 ml Q2H RESP THERAPY PRN HHN SHORTNESS OF BREATH; Start 05/22/19 at 21:00 Nystatin (Nystatin Powder) 1 applic BID TOP Last administered on 06/04/19at 08:5 4; Admin Dose 1 APPLIC; Start 05/23/19 at 21:00 Vancomycin HCl (Vancomycin Oral Syringe) 250 mg Q6 PO Last administered on 06/04/19at 12:52; Admin Dose 250 MG; Start 05/23/19 at 16:00 Hydralazine HCl (Apresoline) 10 mg Q4H PRN IV sbp >160; Start 05/23/19 at 14:30 Acetaminophen (Tylenol Liquid) 650 mg Q6H PRN PO MILD PAIN(1-3)OR ELEVATED TEMP Last administered on 06/03/19 09:21; Admin Dose 650 MG; Start 05/24/19 at 21:20 Famotidine (Pepcid) 20 mg BID PO Last administered on 06/04/19 08:53; Admin Dose 20 MG; Start 05/26/19 at 21:00 Miscellaneous Information 1 ea NOTE XX ; Start 05/27/19 at 18:30 Glucose (Glutose) 15 gm Q15M PRN PO DECREASED GLUCOSE; Start 05/27/19 at 18:30 Glucose (Glutose) 22.5 gm Q15M PRN PO DECREASED GLUCOSE; Start 05/27/19 at 18:30 Dextrose (D50w Syringe) 25 ml Q15M PRN IV DECREASED GLUCOSE; Start 05/27/19 at 18:30 Dextrose (D50w Syringe) 50 ml Q15M PRN IV DECREASED GLUCOSE; Start 05/27/19 at 18:30 Glucagon (Glucagen) 1 mg Q15M PRN IM DECREASED GLUCOSE; Start 05/27/19 at 18:30 Glucose (Glutose) 15 gm Q15M PRN BUCCAL DECREASED GLUCOSE; Start 05/27/19 at 1 8:30 Insulin Aspart (Novolog Insulin Pen) NOVOLOG *MILD* ALGORI... Q6 SC Last administered on 06/04/19at 12:53; Admin Dose 1 UNIT; Start 05/30/19 at 03:00 Ergocalciferol (Drisdol) 50,000 unit We PO Last administered on 05/31/19at 09:40; Admin Dose 50,000 UNIT; Start 05/31/19 at 10:00 Metoclopramide HCl (Reglan) 10 mg Q8H PRN IV n/v Last administered on 06/02/19at 12:09; Admin Dose 10 MG; Start 05/31/19 at 14:00 Diclofenac Sodium (Voltaren 1% Gel) 4 gm QID TP Last administered on 06/04/19at 12:55; Admin Dose 4 GM; Start 06/01/19 at 13:00 Ciprofloxacin (Cipro) 500 mg BID@18 PO Last administered on 06/04/19 06:10; Admin Dose 500 MG; Start 06/03/19 at 18:00; Stop 06/06/19 at 06:00 JOHN HENRY Jun 04, 2019 14:53
--- NOTE | 2019-06-04 15:33 | DS ---
Date/Time of Note Date/Time of Note DATE: 06/04/19 TIME: 15:15 Discharge Summary Admission/Discharge Info Admit Date/Time May 22, 2019 at 19:22 Discharge Date/Time 06/04/19 Discharge Diagnosis 1. Hypercalcemia- resolved 2. Acute renal insufficiency 3. C. difficile colitis- resolved 4. UTI- resolving 5. Dysphasia and chronic nausea 6. Osteoarthritis 7. Acute pancreatitis- improving Patient Condition: Stable Consults Nephrology- Dr. Jolly Infectious disease- Dr. Godfrey GI- Dr. Vasquez Hx of Present Illness Patient is a 64-year-old female with a history of diabetes, hypertension, depression, moderate gastritis/esophagitis, severe atrophy of right kidney, dysphagia status post G-tube about 2 weeks ago. Patient presents the ER complaining of abdominal pain, nausea/vomiting and diarrhea. Symptoms been going on for about a day or 2. Emesis is described as nonbilious and nonbloody and the diarrhea watery/loose, but nonbloody. Patient was discharged from here about 10 days ago after she was admitted for dysphagia. At that time she was seen by GI and had a work-up with no definitive diagnosis. G-tube was placed at that time. Currently, G-tube appears to be intact and did not see any erythema and also no tenderness around it. When she presented to the ER, she had a temp of 99.5, WBC 21,000. Creatinine 1.36. Lipase 639. Hospital Course Patient was admitted for evaluation of sepsis and abdominal pain. Patient was found with acute pancreatitis as well as Cdiff colitis. ID was consulted for antibiotic management and started on PO Vancomycin. GI was consulted given patients persistent nausea and medications were adjusted with improvement after Reglan started. Nephrology was consulted given patient was found with worsening renal function and hypercalcemia. She was worked up for multiple myeloma which was negative. She was given a dose of pamidronate which helped improve her Ca levels. Patients WBC continued to trend up and pancultures were drawn with findings of mild UTI. Patient was started on PO antibiotics for treatment of acute cystitis. Patient diarrhea improved and repeat cdiff was negative. Patients calcium levels improved, nausea diminished, and was feeling overall better. Patient was encouraged to work with physical therapy and Voltaren was placed on knees for relief. Patients overall condition improved and she was stable for discharge home with home health services. She was continued on tube feeds via PEG tube which she tolerated well. Patient was discharged home in good condition with 2 more days of treatment for UTI. Home Meds Active Scripts Nystatin* (Nyamyc* Powder) 1 Applic Powder, 1 APPLIC TOP BID for 30 Days, #1 BOTTLE Prov:KAREN GARNER MD 06/04/19 Ergocalciferol (Vitamin D2) (VITAMIN D2) 50,000 Unit Capsule, 69821 UNIT PO We for 7 Days, #7 CAP Prov:KAREN GARNER MD 06/04/19 Famotidine* (Famotidine*) 20 Mg Tablet, 20 MG PO BID for 30 Days, #60 TAB Prov:KAREN GARNER MD 06/04/19 Metoclopramide Hcl* (Metoclopramide Hcl*) 10 Mg Tablet, 10 MG PO TID PRN for NAUSEA for 30 Days, #90 TAB Prov:KAREN GARNER MD 06/04/19 Diclofenac Sodium (Diclofenac Sodium) 100 Gm Gel..gram., 4 GM TP QID PRN for knee pain for 30 Days, #1 TUB Prov:KAREN GARNER MD 06/04/19 Vancomycin Hcl (Vancomycin Hcl Oral) 250 Mg Capsule, 250 MG PO Q8 for 2 Days, #6 CAP Prov:KAREN GARNER MD 06/04/19 Ciprofloxacin Hcl* (Ciprofloxacin Hcl*) 500 Mg Tablet, 500 MG PO BID@06,18 for 2 Days, #4 TAB Prov:KAREN GARNER MD 06/04/19 Reported Medications Amlodipine Besylate* (Norvasc*) 5 Mg Tablet, 5 MG PO DAILY, TAB 05/22/19 Atorvastatin* (Atorvastatin*) 40 Mg Tablet, 40 MG PO QHS, #30 TAB 04/23/19 Escitalopram Oxalate* (Escitalopram Oxalate*) 10 Mg Tablet, 10 MG PO DAILY, #30 TAB 04/23/19 Discontinued Reported Medications Pantoprazole* (Pantoprazole*) 40 Mg Tablet.dr, 40 MG PO AC BREAKFAST, TAB 04/23/19 Follow-up Plan 1. Follow up with your primary care physician in 1-2 weeks 2. Continue antibiotics for another 2 days. You will need to take Vancomycin and Ciprofloxacin for 2 mores. Continue medications as directed 3. Use Voltaren gel on your knees to help with discomfort and pain 4. Try and keep well hydrated and eat as much as you can tolerate. Take Reglan as needed for nausea 5. If experiencing any concerning symptoms. please come back to the emergency department Primary Care Provider Wilner Owens Time spent on discharge: > 30 minutes Pending Labs Laboratory Tests Test 06/03/19 17:07 06/03/19 23:10 06/04/19 04:37 06/04/19 06:13 Bedside 154 161 171 Glucose mg/dL (70-220) mg/dL (70-220) mg/dL (70-220) White Blood 16.6 Count 10^3/ul (4.8-1 0.8) Red Blood 3.23 Count 10^6/ul (4.20- 5.40) Hemoglobin 8.5 g/dl (12.0-16. 0) Hematocrit 27.8 % (37.0-47.0) Mean 86.1 Corpuscular fl (82.0-101.0 Volume ) Mean 26.3 Corpuscular pg (29.0-33.0) Hemoglobin Mean 30.6 Corpuscular g/dl (32.0-37. Hemoglobin Conc 0) ent Red Cell 19.4 Distribution % (11.5-14.5) Width Platelet Count 448 10^3/UL (140-4 15) Mean Platelet 10.4 Volume fl (7.4-10.4) Immature 2.400 Granulocytes % % (0.001-0.429 ) Neutrophils % 71.2 % (39.0-77.0) Lymphocytes % 12.0 % (15.0-51.0) Monocytes % 7.1 % (0.0-11.0) Eosinophils % 6.9 % (0.0-7.0) Basophils % 0.4 % (0.0-2.0) Nucleated Red 0.0 Blood Cells % /100WBC (0.0-0 .0) Immature 0.390 Granulocytes # 10^3/ul (0.0-0 .031) Neutrophils # 11.8 10^3/ul (1.6-7 .5) Lymphocytes # 2.0 10^3/ul (0.8-2 .9) Monocytes # 1.2 10^3/ul (0.3-0 .9) Eosinophils # 1.2 10^3/ul (0.0-0 .5) Basophils # 0.1 10^3/ul (0.0-0 .1) Nucleated Red 0.0 Blood Cells # 10^3/ul (0.0-0 .0) Sodium Level 132 mmol/L (135-14 4) Potassium 4.3 Level mmol/L (3.5-5. 1) Chloride Level 101 mmol/L (97-110 ) Carbon Dioxide 24 Level mmol/L (21-31) Anion Gap 7 (5-13) Blood Urea 27 Nitrogen mg/dl (7-20) Creatinine 1.12 mg/dl (0.44-1. 00) Glucose Level 163 mg/dl (70-220) Calcium Level 10.3 mg/dl (8.4-10. 2) Phosphorus 3.3 Level mg/dl (2.5-4.9 ) Magnesium 1.7 Level mg/dl (1.7-2.5 ) Albumin 2.9 g/dl (3.3-4.9) Test 06/04/19 12:51 Bedside 160 Glucose mg/dL (70-220) KAREN GARNER MD Jun 04, 2019 15:33
[2019-06-04 19:36] VITALS: BP 141/60; PULSE 92; RESP 17
== END 2019-06-04 21:55 | disposition home health service (06) | DRG 871 ==
LOC: E/R 17:16 → 5EC 19:22
PROVIDERS: ADMIT Internal Medicine; ATTEND Internal Medicine
DX: A41.4 Sepsis due to anaerobes (principal); K85.90 Acute pancreatitis without necrosis or infection, unspecified; A04.72 Enterocolitis due to Clostridium difficile, not specified as recurrent; N17.9 Acute kidney failure, unspecified; N30.00 Acute cystitis without hematuria; E11.8 Type 2 diabetes mellitus with unspecified complications; D47.3 Essential (hemorrhagic) thrombocythemia; E86.0 Dehydration; E83.52 Hypercalcemia; E78.5 Hyperlipidemia, unspecified; E66.9 Obesity, unspecified; F32.9 Major depressive disorder, single episode, unspecified; F06.30 Mood disorder due to known physiological condition, unspecified; I10 Essential (primary) hypertension; K76.0 Fatty (change of) liver, not elsewhere classified; M19.90 Unspecified osteoarthritis, unspecified site; N26.1 Atrophy of kidney (terminal); R13.10 Dysphagia, unspecified; Z68.36 Body mass index [BMI] 36.0-36.9, adult; Z93.1 Gastrostomy status; Z79.4 Long term (current) use of insulin
CPT/HCPCS: 36415; 71045; 74176; 76536; 80048; 80053; 80069; 81001; 82150; 82306; 82330; 82570; 82652; 82962; 83690; 83735; 83970; 84100; 84155; 84156; 84165; 84166; 84478; 84560; 85025; 87045; 87075; 87081; 87086; 87177; 96374; 96375; 97110; 97161; 97530; J2430; J1335; J1815; J2060; J2405; J2543; J2765; J3475; J7030; J7040; J7042

== ENCOUNTER 2019-08-30 15:07 | Inpatient (IN) | payer OTHER ==
[~2019-08-30] VITALS: Ht 152.4 cm; Wt 85.2 kg
[~2019-08-30 15:07] MED LIST changes: +AMLO5TAB4 PO; +CIPR500T4 PO; +DICL100G33 TP; +ERGO500013 PO; +FAMO20TA18 PO; +GLIM1TAB3 PO; +METO10TA3 PO; +NST15PW TOP; +PANT40TA3 PO; +VANC250C5 PO
[2019-08-30] MEDS ORDERED: SOD CHLORIDE 0.9% 1,000 ML IV SCH (20:00)
[2019-08-30] MEDS ORDERED: morphine 2 MG INJ IV PRN (20:00)
[2019-08-30] MEDS ORDERED: ONDANSETRON 4 MG INJ IV PRN (20:00)
[2019-08-30] MEDS ORDERED: NACL 0.9% 3 ML SYG IV SCH (20:00)
[2019-08-30] MEDS ORDERED: GLUCAGON 1 MG INJ IM PRN (20:30)
[2019-08-30] MEDS ORDERED: GLUCOSE GEL 15 GRAM TUBE PO PRN ×2 (20:30)
[2019-08-30] MEDS ORDERED: DEXTROSE 50% 50 ML SYRINGE IV PRN ×2 (20:30)
[2019-08-30] MEDS ORDERED: GLUCOSE GEL 15 GRAM TUBE BUCCAL PRN (20:30)
[2019-08-30] MEDS: INSULIN ASPART [NOVOLOG] 3 ML PEN SC SCH (21:00)
[2019-08-30] MEDS: PANTOPRAZOLE 40 MG INJ IV SCH (21:31)
[2019-08-30] MEDS ORDERED: CEFTRIAXONE 1 GM/50 ML (PMX) 50 ML IVPB ONE (23:30)
[2019-08-31] MEDS: INSULIN ASPART [NOVOLOG] 3 ML PEN SC SCH ×6 (01:00→20:52)
[2019-08-31] MEDS: ACCU-CHEK XX SCH (02:13)
[2019-08-31 02:47] VITALS: Ht 152.4 cm; Wt 85.2 kg
[2019-08-31 03:00] VITALS: BP 139/62; PULSE 74; RESP 18
[2019-08-31] MEDS: DEXTROSE 5%-0.9% NACL 1,000 ML IV SCH ×2 (06:59→22:17)
[2019-08-31 07:34] VITALS: BP 121/57; PULSE 77; RESP 18
[2019-08-31] MEDS: ESCITALOPRAM 10 MG TAB PO SCH ×2 (09:41→09:46)
[2019-08-31] MEDS: PANTOPRAZOLE 40 MG INJ IV SCH ×2 (09:41→20:51)
[2019-08-31 13:57] VITALS: BP 149/70; PULSE 75; RESP 18
[2019-08-31] MEDS ORDERED: SOD CHLORIDE 0.9% 250 ML IV* ONE (14:32)
[2019-08-31 20:07] VITALS: BP 162/77; PULSE 72; RESP 18
[2019-09-01] MEDS: INSULIN ASPART [NOVOLOG] 3 ML PEN SC SCH ×7 (01:00→21:00)
[2019-09-01] MEDS: ACCU-CHEK XX SCH (01:01)
[2019-09-01] MEDS: DEXTROSE 5%-0.9% NACL 1,000 ML IV SCH ×2 (06:13→15:50)
[2019-09-01 07:46] VITALS: BP 139/77; PULSE 75; RESP 17
[2019-09-01] MEDS: PANTOPRAZOLE 40 MG INJ IV SCH ×2 (08:18→20:20)
[2019-09-01 11:15] VITALS: BP 179/83; PULSE 86; RESP 13
[2019-09-01] MEDS ORDERED: DEXTROSE 50% 50 ML SYRINGE ONE (11:25)
[2019-09-01] MEDS ORDERED: PROPOFOL 60 ML ONE (12:04)
[2019-09-01 12:25] VITALS: BP 148/68; PULSE 70; RESP 17
[2019-09-01 12:50] VITALS: BP 176/83; PULSE 70; RESP 17
[2019-09-01 14:15] VITALS: BP 126/66; PULSE 75; RESP 17
[2019-09-01 20:32] VITALS: BP 131/69; PULSE 74; RESP 18
[2019-09-02 01:17] VITALS: BP 134/65; PULSE 81; RESP 18
[2019-09-02] MEDS: ACCU-CHEK XX SCH (02:00)
[2019-09-02 07:47] VITALS: BP 178/79; PULSE 80; RESP 20
[2019-09-02] MEDS: INSULIN ASPART [NOVOLOG] 3 ML PEN SC SCH ×2 (08:25→12:52)
[2019-09-02] MEDS: ESCITALOPRAM 10 MG TAB PO SCH (08:28)
[2019-09-02] MEDS: PANTOPRAZOLE 40 MG INJ IV SCH (08:29)
[2019-09-02] MEDS: DEXTROSE 5%-0.9% NACL 1,000 ML IV SCH (08:30)
[2019-09-02 15:22] VITALS: BP 149/67; PULSE 82; RESP 17
== END 2019-09-02 18:10 | disposition home or self-care (01) | DRG 378 ==
LOC: E/R 15:07 → 2NE 17:10 → CANRESERV 20:25
PROVIDERS: ADMIT Internal Medicine; ATTEND Internal Medicine
PROC: 30233N1 Transfusion of Nonautologous Red Blood Cells into Peripheral Vein, Percutaneous Approach (ICD-10-PCS; 2019-08-30)
PROC: 0W3P8ZZ Control Bleeding in Gastrointestinal Tract, Via Natural or Artificial Opening Endoscopic (ICD-10-PCS; principal; 2019-09-01 11:00)
DX: K26.4 Chronic or unspecified duodenal ulcer with hemorrhage (principal); D62 Acute posthemorrhagic anemia; N17.9 Acute kidney failure, unspecified; K44.9 Diaphragmatic hernia without obstruction or gangrene; K29.70 Gastritis, unspecified, without bleeding; E11.22 Type 2 diabetes mellitus with diabetic chronic kidney disease; I12.9 Hypertensive chronic kidney disease with stage 1 through stage 4 chronic kidney disease, or unspecified chronic kidney disease; N18.9 Chronic kidney disease, unspecified; M19.90 Unspecified osteoarthritis, unspecified site; E88.81 Metabolic syndrome and other insulin resistance; D72.829 Elevated white blood cell count, unspecified; E66.01 Morbid (severe) obesity due to excess calories; Z79.84 Long term (current) use of oral hypoglycemic drugs; Z79.4 Long term (current) use of insulin; Z93.1 Gastrostomy status; Z71.3 Dietary counseling and surveillance
CPT/HCPCS: 36430; 71045; 80048; 80053; 81001; 82962; 83036; 83735; 84100; 84484; 85014; 85018; 85025; 85610; 85730; 86850; 86900; 86901; 86920; 87086; 93005; C9113; J0696; J1815; J7030; J7040; J7042; P9016